=== PATIENT | female | born 1945 | race Caucasian/White ===

== ENCOUNTER 2020-06-05 09:48 | Outpatient (REF) | payer MEDICARE, SELFPAY | END 2020-06-05 09:49 | disposition home or self-care (01) | LOC: HO.LAB 09:48 | PROVIDERS: PCP Internal Medicine; Visit Provider Internal Medicine | DX: Z20.822 Contact with and (suspected) exposure to COVID-19 (principal) | CPT/HCPCS: 36415; C9803; U0003 ==

== ENCOUNTER 2020-06-26 08:11 | Outpatient (REF) | payer MEDICARE, SELFPAY | END 2020-06-26 08:12 | disposition home or self-care (01) | LOC: HO.LAB 08:11 | PROVIDERS: PCP Internal Medicine; Visit Provider Internal Medicine | DX: Z20.822 Contact with and (suspected) exposure to COVID-19 (principal) | CPT/HCPCS: 36415; C9803; U0003; U0005 ==

== ENCOUNTER 2021-01-09 09:51 | Outpatient (REF) | payer MEDICARE, SELFPAY ==
--- NOTE | ~2021-01-09 | US_ITS ---
EXAMINATION: US RETROPERITONEAL LIMITED (RENAL ONLY) CLINICAL INFORMATION: Chronic kidney disease, hypertension. COMPARISON: None. TECHNIQUE: Real-time imaging of the kidneys. FINDINGS: RIGHT KIDNEY: 9.9 x 4.1 x 4.9 cm (SAG x AP x TRV). The kidney is normal in size, contour, and echogenicity. Renal cortical thickness is normal. There is a 3 x 2.9 x 2.6 cm simple cyst in the lower pole. There is a 1.3 x 0.8 x 1.3 cm hypoechoic lesion with internal echoes seen in the midpole. This may represent a complex cyst. It is difficult to exclude a solid lesion. No renal calculi or hydronephrosis. LEFT KIDNEY: 7.8 x 4.2 x 3.9 cm (SAG x AP x TRV). The left kidney is smaller than the right. The kidney is normal in contour, and echogenicity. Renal cortical thickness is normal. No calculi or focal parenchymal lesions. No hydronephrosis. US/US renal BI IMPRESSION: 3 cm simple right renal cyst. 1.3 x 0.8 x 1.3 cm question complex cyst in the midpole of the right kidney. It is difficult to exclude a solid lesion. Imaging follow-up recommended. The left kidney is smaller than the right.
== END 2021-01-09 09:52 | disposition home or self-care (01) ==
LOC: HO.US 09:51
PROVIDERS: Visit Provider Internal Medicine
DX: I12.9 Hypertensive chronic kidney disease with stage 1 through stage 4 chronic kidney disease, or unspecified chronic kidney disease (principal); N18.9 Chronic kidney disease, unspecified
CPT/HCPCS: 76775

== ENCOUNTER 2021-02-26 16:55 | Outpatient (REF) | payer MEDICARE, SELFPAY ==
--- NOTE | ~2021-02-26 | MR_ITS ---
EXAMINATION: MRI OF THE BRAIN WITHOUT CONTRAST CLINICAL INFORMATION: New daily persistent headaches. Essential hypertension. COMPARISON: There are no prior studies available for comparison. TECHNIQUE: MRI of the brain was obtained using routine sequences without contrast. FINDINGS: No diffusion abnormalities are identified to suggest an acute or subacute infarct. No mass effect or midline shift is seen. There is moderate commensurate prominence of the ventricles and sulci. There are moderately extensive areas of hyperintense T2 and FLAIR signal in the periventricular and subcortical white matter, as well as in the maricruz, most consistent with chronic microvascular ischemic changes. There is a chronic lacunar infarct in the left basal ganglia. No extra-axial fluid collections are seen. The brainstem and cerebellum are normal. No pathologic magnetic susceptibility artifact is identified on the gradient refocused acquisition. The craniovertebral junction, marrow signal, and midline structures are normal. There is a mild anterolisthesis of C4 on C5, likely degenerative. The major intracranial flow-voids at the level of the [place] of [place] are preserved. The dural venous sinus flow-voids are maintained. There is trace fluid at the right mastoid tip. The paranasal sinuses are well-aerated. MR/MR head/brain wo con IMPRESSION: 1. There are no acute bleeds or territorial infarcts. No masses are demonstrated. 2. There are chronic microvascular ischemic changes and a lacunar infarct. There is diffuse volume loss.
== END 2021-02-26 16:56 | disposition home or self-care (01) ==
LOC: HO.MRI 16:55
PROVIDERS: Visit Provider Internal Medicine
DX: G44.52 New daily persistent headache (NDPH) (principal); I10 Essential (primary) hypertension; R41.3 Other amnesia
CPT/HCPCS: 70551

== ENCOUNTER 2021-03-24 10:42 | Outpatient (REF) | payer MEDICARE, SELFPAY ==
[2021-03-24 12:35] LABS: Vitamin B12 685 pg/mL (200-900)
== END 2021-03-24 10:43 | disposition home or self-care (01) ==
LOC: HO.LAB 10:42
PROVIDERS: PCP Internal Medicine; Visit Provider Psychiatry & Neurology Neurology
DX: G30.9 Alzheimer's disease, unspecified (principal)
CPT/HCPCS: 36415; 82607

== ENCOUNTER 2021-04-22 15:05 | Outpatient (REF) | payer MEDICARE, SELFPAY ==
--- NOTE | ~2021-04-22 | US_ITS ---
EXAMINATION: US RETROPERITONEAL LIMITED (RENAL ONLY) CLINICAL INFORMATION: Hypertension. Chronic kidney disease. COMPARISON: Renal ultrasound 01/09/2021. TECHNIQUE: Real-time imaging of the kidneys. FINDINGS: RIGHT KIDNEY: 8.7 x 3.0 x 5.4 cm (SAG x AP x TRV). The kidney is normal in size, contour, and echogenicity. Renal cortical thickness is normal. No renal calculi or hydronephrosis. 3.3 cm lower pole cyst demonstrates a feeding septation and mild cortical irregularity. An 8mm upper pole cyst which possibly demonstrates some peripheral calcification is noted. LEFT KIDNEY: 8.7 x 4.7 x 4.3 cm (SAG x AP x TRV). The kidney is normal in size, contour, and echogenicity. Renal cortical thickness is normal. No renal calculi or hydronephrosis of the left kidney. Suspected prominent column of Phillip. US/US renal BI IMPRESSION: -no renal calculi hydronephrosis of either kidney. -Mildly complex right renal cysts.
== END 2021-04-22 15:06 | disposition home or self-care (01) ==
LOC: HO.US 15:05
PROVIDERS: PCP Internal Medicine; Visit Provider Internal Medicine
DX: I12.9 Hypertensive chronic kidney disease with stage 1 through stage 4 chronic kidney disease, or unspecified chronic kidney disease (principal); N18.9 Chronic kidney disease, unspecified
CPT/HCPCS: 76775

== ENCOUNTER 2021-07-05 11:53 | Inpatient (IN) | payer MEDICARE, SELFPAY ==
[2021-07-05] VITALS (7 sets, daily range): BP systolic 122–153; BP diastolic 61–78; PULSE 4–97; RESP 14–20; TEMP 37.1–37.2; O2SAT 97–99; BMI 19.5
--- NOTE | ~2021-07-05 | CT_ITS ---
EXAMINATION: CT ABDOMEN AND PELVIS WITH CONTRAST CLINICAL INFORMATION: Diffuse abdominal tenderness COMPARISON: None TECHNIQUE: Multidetector volumetric images were obtained from the superior aspect of the liver through the pubic symphysis following administration 85 mL of Omnipaque 350 intravenous contrast. Sagittal and coronal reformatted images were obtained on the technologist's workstation. Oral contrast: No This CT examination was performed using dose optimization techniques as appropriate, variously including the following: *Automated exposure control *Adjustment of mA and/or kV according to patient size (this includes techniques or standardized protocols for targeted exams where dose is matched to indication/reason for exam; i.e. extremities or head) *Use of iterative reconstruction technique DLP: 338 mGy-cm FINDINGS: LUNG BASES: Peribronchiolar nodular airspace disease is noted within the right lower lobe as well as the right middle lobe, shows tree-in-bud appearance, most consistent with transbronchial infection/pneumonia. LIVER, GALLBLADDER, AND BILIARY TREE: 5 cm central mixed density relatively circumscribed mass is identified in the periportal region inseparable from the liver, producing mass effect in the form of displacement of the inferior vena cava to the left as well as displacement of the gallbladder inferiorly (27:5, and 185:4). Mild central biliary ductal dilatation is present likely secondary to extrinsic compression by the mass or the common bile duct which is also displaced anteriorly and to the left. The gallbladder other than displacement appears unremarkable. PANCREAS: Unremarkable. SPLEEN: Unremarkable. ADRENAL GLANDS: Unremarkable. KIDNEYS AND URETERS: The kidneys are normal in size, shape, and attenuation. No calculi seen. No perinephric stranding. Fullness of both renal pelvicalyceal system is present. Exophytic cortical renal cyst is noted at mid lateral cortex of the right kidney. BLADDER: Mild diffuse wall thickening is present, may represent superimposed infection. GASTROINTESTINAL TRACT: Colonic diverticulosis related changes are noted within the large bowel. The small bowel loops are decompressed. The stomach is decompressed. ABDOMINAL WALL: No significant hernia is appreciated. LYMPH NODES: Normal. VASCULAR: Mild atherosclerotic disease is noted without aneurysm formation. PELVIC VISCERA: Vbryg-pg-hqreflsg volume free fluid is noted within the dependent part of the pelvis. OSSEOUS STRUCTURES: No suspicious focal osseous lesion. CT/CT abdomen pelvis w con IMPRESSION: 1. Solitary 5 cm Central mixed density relatively circumscribed mass is identified in the periportal region inseparable from the liver producing mass effect in the form of displacement of the inferior vena cava, gallbladder and common bile duct, resulting in minimal central biliary ductal dilatation. Follow-up multiphasic nonemergent pre and postcontrast MRI of the liver is recommended for further full detail evaluation. There are no prior studies available for comparison. 2. Mild fullness of both renal pelvicalyceal system and mild diffuse thickening of the bladder wall. 3. Nchgm-rl-icaudpfv volume free fluid within the dependent part of the pelvis. 4. Abnormal lung bases with peribronchiolar nodular airspace disease at right lower lobe and right middle lobe, most consistent with infection/pneumonia. This critical result was discussed with PEYMAN Edward at 2:02 PM on 07/05/2021 and it was ascertained that the content and urgency of the report was understood at the time of direct communication. Fleischner guidelines were followed.
--- NOTE | ~2021-07-05 | XR_ITS ---
EXAMINATION: XR CHEST CLINICAL INFORMATION: Chest pain and cough COMPARISON: CT chest dated 09/06/2018 TECHNIQUE: Frontal view of the chest was obtained. FINDINGS: There are linear and streaky opacities within right midlung and right lower lung, possibly left lower lung as well. Suspect bronchial wall thickening and endobronchial secretions as seen on the prior CT chest. No pleural effusion or pneumothorax. Normal heart size and pulmonary vascularity. XR/XR chest 1V IMPRESSION: Few bilateral streaky and patchy airspace opacities and associated bronchial wall thickening.
--- NOTE | ~2021-07-05 | MR_ITS ---
EXAMINATION: MR ABDOMEN WITHOUT AND WITH CONTRAST CLINICAL INFORMATION: Liver lesion COMPARISON: Chest x-ray and CT of the abdomen and pelvis 07/05/2021 TECHNIQUE: MR abdomen was performed without and with use of 5 mL intravenous Gadavist gadolinium contrast. Postcontrast images are performed in multiphase dynamic sequences. Imaging was performed in 3 planes. Exam is limited due to movement. FINDINGS: LUNG BASES: There is a 3 cm cystic or cavitary lesion in the right upper lung. There appear to be adjacent nodules more centrally in the right upper lobe extending toward the hilum. There also appear to be small nodules in the left upper lung. This is best appreciated on the coronal T2 sequences that include the chest. LIVER, GALLBLADDER, AND BILIARY TREE: The liver is normal in size, shape and signal. There is no evidence of cirrhosis. There is a 5 cm lesion inferior to the marlin hepatis probably arising in the posterior segment of the right lobe of the liver. This is heterogeneous in signal on T1 and T2-weighted sequences. This is predominantly low signal on T1-weighted sequences and intermediate to high signal on T2-weighted sequences. This demonstrates heterogeneous thick-walled peripheral enhancement. The gallbladder is not well visualized. There is no biliary duct dilatation. There is a small cyst in the medial segment of the left lobe of the liver. The hepatic veins and portal veins are patent. PANCREAS: Unremarkable. SPLEEN: Normal. ADRENAL GLANDS: Normal. KIDNEYS AND URETERS: There is a 4 cm cyst in the inferior right kidney. The kidneys are otherwise unremarkable. GASTROINTESTINAL TRACT: There is stool throughout the colon. There is a small amount of ascites. ABDOMINAL WALL: No significant hernia is appreciated. LYMPH NODES: No lymphadenopathy. VASCULAR: Unremarkable. OSSEOUS STRUCTURES: Marrow signal normal. MR/MR abdomen wo/w con IMPRESSION: Limited exam due to motion. 3 cm cystic or cavitary area in the right upper lung, probably the posterior segment of the right upper lobe and bilateral pulmonary nodules. Follow-up chest CT recommended. 5 cm heterogeneous necrotic or cavitary lesion probably probably in the liver or gallbladder. Metastatic disease, gallbladder or cholangiocarcinoma, and in the right clinical setting abscess should be considered. Enhancement characteristics are atypical for hepatocellular carcinoma and there is no evidence of cirrhosis. Small amount of ascites.
--- NOTE | ~2021-07-05 | US_ITS ---
EXAMINATION: US HEPATIC BIOPSY CLINICAL INFORMATION: 5 cm necrotic mass in the liver. COMPARISON: None TECHNIQUE: Following explaining CT-guided liver biopsy procedure, benefits and risk, a written consent was obtained from the patient. Patient was placed supine on ultrasound stretcher and preliminary ultrasound imaging was obtained. An optimal site was selected along the epigastric region right paramidline region and marked. The marked site was cleaned and draped in the usual sterile manner. 1% lidocaine was injected at the puncture site. Through a small skin incision, a short 18-gauge guide needle was advanced into the central hepatic mass under sterile ultrasound guidance. Coaxially 6 core biopsies were obtained with an 18-gauge needle. Postprocedure, the guide needle was withdrawn and complete hemostasis achieved at puncture site. There was no bleeding through the needle or at the puncture site. Sterile dressing applied postprocedure. Conscious sedation was performed during the exam and patient monitored by the IR physician and the IR nurse for 30 minutes. FINDINGS: On preliminary ultrasound imaging, there is a large right hepatic lobe mass situated medially. Approximately 6 core biopsies were obtained through this large necrotic hypodense mass US/US biopsy liver IMPRESSION: Successful ultrasound-guided right hepatic lobe mass biopsy performed without immediate complications.
--- NOTE | ~2021-07-05 | CT_ITS ---
EXAMINATION: CT CHEST WITH CONTRAST CLINICAL INFORMATION: Evaluate for possible primary vs. secondary cancer? COMPARISON: Chest x-ray 07/05/2021. Chest CT 09/06/2018. TECHNIQUE: Multidetector volumetric CT imaging of the chest was obtained after the administration of 65 mL of Omnipaque 350 intravenous contrast without immediate adverse reactions. Axial MIP volume rendering provided. Sagittal and coronal reformatted images were obtained. This CT examination was performed using dose optimization techniques as appropriate, variously including the following: *Automated exposure control *Adjustment of mA and/or kV according to patient size (this includes techniques or standardized protocols for targeted exams where dose is matched to indication/reason for exam; i.e. extremities or head) *Use of iterative reconstruction technique DLP: 145 mGy-cm FINDINGS: DRAMATIC COACH: Cavitary lesion in the right perihilar region as noted on the order dispatcher. LUNGS: Multifocal pulmonary abnormalities are present. There are areas of clustered likely tree-in-bud nodules in the posterior aspect of the right upper lobe. There are clustered tree-in-bud nodules in the lateral posterior inferior aspect of the right upper lobe. The greatest degree of abnormality is seen within the right lower lobe where there is a 4.0 x 3.0 cm transaxial by 2.9 cm craniocaudal centrally cavitary mass. The mass is a small dependent fluid level and an irregular wall up to 4 to 5 mm in thickness. There were some bronchiectatic airways with bronchial wall thickening clustered nodules in this location on the prior study in 2019. Numerous additional areas of clustered nodules and patchy consolidation are seen elsewhere in the right lower lobe particularly medially and inferior to the cavitary mass. There are a few areas of clustered tree-in-bud nodules within the lingula and left lower lobe although there is much less involvement in the left lung and in the right lung. MEDIASTINUM: Heterogeneous appearance of the thyroid. No discrete nodule greater than 1 cm seen. Based on the recommendations of the ACR Incidental Thyroid Findings Committee (JACR 2015 Jun; 12(2):143-50), no imaging followup is recommended for incidental thyroid nodules with largest axial dimension less than 1.5 cm in patients greater than 35 years of age in the absence of high risk imaging features, symptomatic thyroid disease, or increased risk for thyroid cancer. No hilar or mediastinal lymphadenopathy. Normal heart size. PLEURA: There is no pleural effusion. No pleural mass or thickening. AXILLA: No axillary or internal mammary lymphadenopathy. UPPER ABDOMEN: No adrenal mass. OSSEOUS STRUCTURES: Degenerative changes. No acute or suspicious osseous abnormality. CT/CT chest w con IMPRESSION: 4.0 cm maximum diameter cavitary mass in the right lower lobe. There is a small dependent fluid level with a thick irregular rim uptake a 4 mm. The appearance is nonspecific. Malignancy is a consideration but it seems more likely that this is an infectious or inflammatory process given the additional findings of multifocal infection/inflammation elsewhere in the lungs and the presence of chronic infectious or inflammatory changes centered in this location on the prior chest CT 09/06/2018
--- NOTE | 2021-07-05 12:10 | ECG_ITS ---
Test Reason : CP Blood Pressure : / mmHG Vent. Rate : 081 BPM Atrial Rate : 081 BPM P-R Int : 128 ms QRS Dur : 130 ms QT Int : 366 ms P-R-T Axes : 077 -11 026 degrees QTc Int : 425 ms Normal sinus rhythm Incomplete right bundle branch block Minimal voltage criteria for LVH, may be normal variant ( [place] product ) Abnormal ECG No previous ECGs available Referred By: Nehal Broussard Electronically Signed By:ISSAC SOUZA
--- NOTE | 2021-07-05 12:14 | ED_ITS ---
HPI - General Adult General Chief complaint: General Medical Stated complaint: CHEST PAIN Time Seen by Provider: 07/05/21 12:01 Source: patient and EMS Mode of arrival: EMS History of Present Illness HPI narrative: 75-year-old female with a past medical history HTN, anemia, BIBA from home complaining of intermittent CP, mild SOB, dry cough, subjective fevers, and right flank pain since yesterday. Also reports generalized fatigue/weakness and lightheadedness all week. Also reports abdominal pain. Denies vomiting, nausea, diarrhea, headache, edema, dysuria/hematuria. Onset (ago): day(s) Related Data Allergies Allergy/AdvReac Type Severity Reaction Status Date / Time No Known Allergies Allergy Unverified 01/25/20 17:49 [No Known Allergies*] Review of Systems Review of Systems: Constitutional: +Subj Fever, No Chills, No Night Sweats, + Fatigue, + Malaise ENT/Mouth: No Hearing loss, No Ear Pain, No Nasal Congestion, No sore throat, No Rhinorrhea, No Swallowing Difficulty Eyes: No Eye Pain, No Swelling, No Redness, No Foreign Body, No Discharge, No Vision Changes Cardiovascular: + Chest Pain, + SOB, No Dyspnea on Exertion, No Edema, No Palpit ations Respiratory: + Cough, No Sputum, No Dyspnea Gastrointestinal: No Nausea, No Vomiting, No Diarrhea, No Constipation, + Abdominal pain Genitourinary: No Dysuria, No Urinary Frequency, No Hematuria, No Urinary Incontinence, No Urgency, + Flank Pain Musculoskeletal: No joint pain, No Myalgias, No Joint Swelling Skin: No Skin Lesions, No rash Neuro: + Weakness, No Numbness, No Paresthesias, No Loss of Consciousness, + lightheadedness, No Headache Yes all other systems are reviewed and are negative Neurologic: Denies Abnormal speech present [facility] Past Medical History Attestation statement: The following information was validated with the patient. Medical History Anemia HTN (hypertension) Social History Social History Patient Tobacco Use Status: Never used Tobacco Use of substances other than those prescribed or required for medical reasons: No Advance Directives: No Advance Directives Information Provided: No Physical Exam ED Vital Signs: Vital Signs - 24 hr 07/05/21 12:05 07/05/21 12:37 07/05/21 14:00 Temperature 98.8 F Pulse Rate 87 97 87 Respiratory Rate 16 16 Blood Pressure 142/64 H 146/78 H 122/61 Pulse Oximetry 97 97 BMI result Body Mass Index 19.5 Const General: cooperative, healthy appearing, no acute distress, well developed, alert and awake Orientation/consciousness: patient oriented x3 Limitations: no limitations HENMT Head: Yes normal to inspection and Yes atraumatic Ears: hearing grossly normal bilaterally General nose exam: Normal external nose present Face and sinus: Yes normal facial exam Eyes General: appearance normal, both eyes and all related structures EOM: EOMs intact bilaterally Neck Neck: Yes normal visual inspection and Yes no meningeal signs Chest Chest palpation & inspection: normal inspection of the chest, no crepitus and no tenderness Resp Effort & Inspection: normal respiratory effort and no respiratory distress Auscultation: clear to auscultation bilaterally, no rales, no rhonchi and no wheezes Cardio Rate: regular rate Heart sounds: S1 normal heart sound present and S2 normal heart sound present GI Inspection: Yes normal to inspection Palpation (GI): Soft to palpation, Tenderness to palpation present (GI) (diffusely), no guarding and not rigid General: Yes no CVA tenderness Back/Spine/Pelvis Back: no CVA tenderness Skin Rashes: no rashes Wounds: no wounds Neuro General: patient oriented x3, tone normal, moves all extremities, no meningeal signs, no focal motor deficits and CN's II-XI intact bilaterally Cranial nerves: Yes CN's II-XII intact bilaterally Cognition (Neuro): normal cognition Speech: No Abnormal speech present Gait exam (Neuro): Normal gait present Motor exam (neuro): 5/5 motor strength present throughout (RUE weakness (chronically per patient)) Extrem General: Yes normal to inspection and Yes no pedal edema Course Course Course Narrative: -1315--no leukocytosis. H&H lower than baseline at 8.7/27.3 >> will obtain guaiac stool and 3 hour repeat CBC > patient does report black stool times unknown period of time. Brown stool noted on rectal -labs otherwise unremarkable. Troponin negative. COVID-19 negative XR chest 1V IMPRESSION: Few bilateral streaky and patchy airspace opacities and associated bronchial wall thickening. ?>> lactic/blood cultures and empiric IV Rocephin and Azithromycin ordered -1416-CT abdomen pelvis w con IMPRESSION: 1. Solitary 5 cm Central mixed density relatively circumscribed mass is identified in the periportal region inseparable from the liver producing mass effect in the form of displacement of the inferior vena cava, gallbladder and common bile duct, resulting in minimal central biliary ductal dilatation. Follow-up multiphasic nonemergent pre and postcontrast MRI of the liver is recommended for further full detail evaluation. ? There are no prior studies available for comparison. 2. Mild fullness of both renal pelvicalyceal system and mild diffuse thickening of the bladder wall. 3. [id number] volume free fluid within the dependent part of the pelvis. 4. Abnormal lung bases with peribronchiolar nodular airspace disease at right lower lobe and right middle lobe, most consistent with infection/pneumonia. ? > results discussed with patient. Occult stool negative. UA with 15 ketones/not infected. Plan to admit for further management. Medical Decision Making MDM Narrative Medical decision making narrative: 75-year-old female with a past medical history HTN, anemia, BIBA from home complaining of intermittent CP, mild SOB, dry cough, subjective fevers, and right flank pain since yesterday. Also reports generalized fatigue/weakness and lightheadedness all week & abdominal pain. On exam vital signs stable, NAD/nontoxic, lungs CTA, abdomen soft diffusely tender, no focal neuro deficits. Concern for atypical ACS vs intra-abdominal pathology including sinusi tis/diverticulitis or pancreatitis/cholecystitis/lithiasis vs UTI/renal stone or pyelo. Rule out viral syndrome/COVID-19. Unlikely PE/CHF Plan: EKG, labs, UA, CXR, CT abdomen/pelvis, orthostatic vital signs, IVF, re- evaluate Medical Records Medical records reviewed: Yes I reviewed the patient's medical records. Lab Data Lab results reviewed: Yes I reviewed the patient's lab results. Result diagrams: 07/05/21 13:56 07/05/21 12:32 Labs: Lab Results 07/05/21 07/05/21 07/05/21 Range/Units 12:32 12:32 12:32 WBC 5.4 (4.8-10.8) X10*3/uL RBC 3.08 L (4.20-5.50) X10*6/uL Hgb 8.7 L (12.0-16.0) g/dl Hct 27.3 L (37.0-47.0) % MCV 88.6 (80.0-98.0) fL MCH 28.2 (27.0-33.0) pg MCHC 31.9 (31.0-35.0) g/dl RDW 12.6 (11.0-16.0) % Plt Count 291 (160-400) X10*3/uL MPV 9.4 (9.4-12.3) fL Immature Gran % (Auto) 0.6 H (0.0-0.4) % Neut % (Auto) 85.8 H (45-73) % Lymph % (Auto) 8.1 L (20-40) % [place] % (Auto) 4.6 (2-11) % Eos % (Auto) 0.7 (0-4) % Baso % (Auto) 0.2 (0-2) % Lymph # (Auto) 0.4 L (1.2-4.9) X10*3/uL [place] # (Auto) 0.3 (0.1-1.2) X10*3/uL Eos # (Auto) 0.0 (0.0-0.4) X10*3/uL Baso # (Auto) 0.0 (0.0-0.2) X10*3/uL Abs Immat Gran (auto) 0.03 (0.00-0.03) X10*3/uL Absolute Neuts (auto) 4.7 (2.0-8.3) x10*3/uL Absolute Nucleated RBC 0.000 (0.0-0.012) X10*3/uL Nucleated RBC % (auto) 0.0 (0.0-0.2) /100WBC Sodium 137 (135-145) mmol/L Potassium 4.3 (3.3-5.1) mmol/L Chloride 99 (96-108) mmol/L Carbon Dioxide 26 (22-29) mmol/L Anion Gap 16 (12-20) BUN 20 H (9-16) mg/dL Creatinine 1.03 (0.5-1.4) mg/dL Estim Creat Clear Calc 37.1 Estimated GFR 53 Random Glucose 82 (60-115) mg/dL Lactic Acid (0.5-2.0) mmol/L Calcium 9.2 (8.4-10.2) mg/dL Magnesium 2.3 (1.6-2.6) mg/dL Total Bilirubin 0.8 (0.0-1.0) mg/dL Direct Bilirubin 0.3 (0.0-0.5) mg/dL AST 12 (5-31) U/L ALT < 6 (0-31) U/L Alkaline Phosphatase 91 (39-117) U/L Troponin I High Sens < 3.5 (<3.5-17.0) ng/L B-Natriuretic Peptide 137 H (<100) pg/mL Total Protein 7.5 (6.5-8.0) g/dL Albumin 3.5 (3.5-5.0) g/dL Lipase 4 L (8-78) U/L Urine Color Urine Appearance Urine pH (5.0-8.0) Ur Specific [place] (1.005-1.025) Urine Protein (NEG-TRACE) MG/DL Urine Glucose (UA) (NEG) MG/DL Urine Ketones (NEG) MG/DL Urine Blood (NEG) Urine Nitrite (NEG) Ur Leukocyte Esterase (NEG) Stool Occult Blood (NEGATIVE) COVID-19 (CAM) (Negative) COVID-19 Clin Com 07/05/21 07/05/21 07/05/21 Range/Units 12:32 12:32 13:56 WBC 5.1 (4.8-10.8) X10*3/uL RBC 3.06 L (4.20-5.50) X10*6/uL Hgb 8.6 L (12.0-16.0) g/dl Hct 27.3 L (37.0-47.0) % MCV 89.2 (80.0-98.0) fL MCH 28.1 (27.0-33.0) pg MCHC 31.5 (31.0-35.0) g/dl RDW 12.6 (11.0-16.0) % Plt Count 286 (160-400) X10*3/uL MPV 9.5 (9.4-12.3) fL Immature Gran % (Auto) 0.4 (0.0-0.4) % Neut % (Auto) 86.1 H (45-73) % Lymph % (Auto) 8.7 L (20-40) % [place] % (Auto) 4.0 (2-11) % Eos % (Auto) 0.4 (0-4) % Baso % (Auto) 0.4 (0-2) % Lymph # (Auto) 0.4 L (1.2-4.9) X10*3/uL [place] # (Auto) 0.2 (0.1-1.2) X10*3/uL Eos # (Auto) 0.0 (0.0-0.4) X10*3/uL Baso # (Auto) 0.0 (0.0-0.2) X10*3/uL Abs Immat Gran (auto) 0.02 (0.00-0.03) X10*3/uL Absolute Neuts (auto) 4.4 (2.0-8.3) x10*3/uL Absolute Nucleated RBC 0.000 (0.0-0.012) X10*3/uL Nucleated RBC % (auto) 0.0 (0.0-0.2) /100WBC Sodium (135-145) mmol/L Potassium (3.3-5.1) mmol/L Chloride (96-108) mmol/L Carbon Dioxide (22-29) mmol/L Anion Gap (12-20) BUN (9-16) mg/dL Creatinine (0.5-1.4) mg/dL Estim Creat Clear Calc Estimated GFR Random Glucose (60-115) mg/dL Lactic Acid (0.5-2.0) mmol/L Calcium (8.4-10.2) mg/dL Magnesium (1.6-2.6) mg/dL Total Bilirubin (0.0-1.0) mg/dL Direct Bilirubin (0.0-0.5) mg/dL AST (5-31) U/L ALT (0-31) U/L Alkaline Phosphatase (39-117) U/L Troponin I High Sens (<3.5-17.0) ng/L B-Natriuretic Peptide Cancelled (<100) pg/mL Total Protein (6.5-8.0) g/dL Albumin (3.5-5.0) g/dL Lipase (8-78) U/L Urine Color Urine Appearance Urine pH (5.0-8.0) Ur Specific [place] (1.005-1.025) Urine Protein (NEG-TRACE) MG/DL Urine Glucose (UA) (NEG) MG/DL Urine Ketones (NEG) MG/DL Urine Blood (NEG) Urine Nitrite (NEG) Ur Leukocyte Esterase (NEG) Stool Occult Blood (NEGATIVE) COVID-19 (CAM) Negative (Negative) COVID-19 Clin Com See Note 07/05/21 07/05/21 07/05/21 Range/Units 13:56 14:22 14:35 WBC (4.8-10.8) X10*3/uL RBC (4.20-5.50) X10*6/uL Hgb (12.0-16.0) g/dl Hct (37.0-47.0) % MCV (80.0-98.0) fL MCH (27.0-33.0) pg MCHC (31.0-35.0) g/dl RDW (11.0-16.0) % Plt Count (160-400) X10*3/uL MPV (9.4-12.3) fL Immature Gran % (Auto) (0.0-0.4) % Neut % (Auto) (45-73) % Lymph % (Auto) (20-40) % [place] % (Auto) (2-11) % Eos % (Auto) (0-4) % Baso % (Auto) (0-2) % Lymph # (Auto) (1.2-4.9) X10*3/uL [place] # (Auto) (0.1-1.2) X10*3/uL Eos # (Auto) (0.0-0.4) X10*3/uL Baso # (Auto) (0.0-0.2) X10*3/uL Abs Immat Gran (auto) (0.00-0.03) X10*3/uL Absolute Neuts (auto) (2.0-8.3) x10*3/uL Absolute Nucleated RBC (0.0-0.012) X10*3/uL Nucleated RBC % (auto) (0.0-0.2) /100WBC Sodium (135-145) mmol/L Potassium (3.3-5.1) mmol/L Chloride (96-108) mmol/L Carbon Dioxide (22-29) mmol/L Anion Gap (12-20) BUN (9-16) mg/dL Creatinine (0.5-1.4) mg/dL Estim Creat Clear Calc Estimated GFR Random Glucose (60-115) mg/dL Lactic Acid 1.1 (0.5-2.0) mmol/L Calcium (8.4-10.2) mg/dL Magnesium (1.6-2.6) mg/dL Total Bilirubin (0.0-1.0) mg/dL Direct Bilirubin (0.0-0.5) mg/dL AST (5-31) U/L ALT (0-31) U/L Alkaline Phosphatase (39-117) U/L Troponin I High Sens (<3.5-17.0) ng/L B-Natriuretic Peptide (<100) pg/mL Total Protein (6.5-8.0) g/dL Albumin (3.5-5.0) g/dL Lipase (8-78) U/L Urine Color STRAW Urine Appearance CLEAR Urine pH 5.5 (5.0-8.0) Ur Specific [place] <= 1.005 (1.005-1.025) Urine Protein NEG (NEG-TRACE) MG/DL Urine Glucose (UA) NEG (NEG) MG/DL Urine Ketones 15 (NEG) MG/DL Urine Blood NEG (NEG) Urine Nitrite NEG (NEG) Ur Leukocyte Esterase NEG (NEG) Stool Occult Blood NEGATIVE (NEGATIVE) COVID-19 (CAM) (Negative) COVID-19 Clin Com ECG Data Attestation: I personally reviewed and interpreted this ECG as follows: Interpretation: EKG normal sinus rhythm at a rate of 81. Pr interval 128. QTC 425. Inverted T-wave in V1. No STEMI. Discharge Plan Discharge Clinical Impression: Pneumonia, Liver mass, Anemia Patient Disposition: Admitted As Inpatient
--- NOTE | 2021-07-05 12:19 | PC.NURSE ---
Pt alert/oriented, reports not feeling well for past week with dizziness and fatigue but cp and right low back pain started yesterday. afebrile but reports feeling hot at home. ?right sided facial droop, other neuros intact. Tis RN and Nehal to bedside for initial assessment. Difficult to determine if smile d/t dentition. NSR on monitor
[2021-07-05] MEDS: 0.9 % Sodium Chloride 1,000 ML 999 ML IV (12:35)
[2021-07-05 12:37] LABS: MANUAL DIFF FLAG NO
[2021-07-05 12:40] LABS: Basophils Percent Auto 0.2 % (0-2); Eosinophils Percent Auto 0.7 % (0-4); Hematocrit 27.3 % (37.0-47.0); Hemoglobin 8.7 g/dl (12.0-16.0); Imm Gran Abs Auto 0.03 X10*3/uL (0.00-0.03); Imm Gran Pct Auto 0.6 % (0.0-0.4); Lymphocytes Absolute Auto 0.4 X10*3/uL (1.2-4.9); Lymphocytes Percent Auto 8.1 % (20-40); Mean Corpuscular HGB Conc 31.9 g/dl (31.0-35.0); Mean Corpuscular Hemoglobin 28.2 pg (27.0-33.0); Mean Corpuscular Volume 88.6 fL (80.0-98.0); Mean Platelet Volume 9.4 fL (9.4-12.3); Monocytes Absolute Auto 0.3 X10*3/uL (0.1-1.2); Monocytes Percent Auto 4.6 % (2-11); Neutrophils Absolute Auto 4.7 x10*3/uL (2.0-8.3); Neutrophils Percent Auto 85.8 % (45-73); Platelet Count 291 X10*3/uL (160-400); Red Blood Count 3.08 X10*6/uL (4.20-5.50); Red Cell Distribution Width 12.6 % (11.0-16.0); White Blood Count 5.4 X10*3/uL (4.8-10.8)
[2021-07-05 12:54] LABS: COVID-19 Test Negative (Negative); IDNOW Serial# 55D5AD1C
[2021-07-05 13:00] LABS: B Type Natriuretic Peptide 137 pg/mL (<100); Troponin-I High Sensitivity < 3.5 ng/L (<3.5-17.0)
[2021-07-05 13:05] LABS: Alanine Aminotransferase < 6 U/L (0-31); Albumin Level 3.5 g/dL (3.5-5.0); Alkaline Phosphatase 91 U/L (39-117); Anion Gap 16 (12-20); Aspartate Amino Transferase 12 U/L (5-31); Bilirubin Direct 0.3 mg/dL (0.0-0.5); Bilirubin Total 0.8 mg/dL (0.0-1.0); Blood Urea Nitrogen 20 mg/dL (9-16); Calcium 9.2 mg/dL (8.4-10.2); Carbon Dioxide 26 mmol/L (22-29); Chloride 99 mmol/L (96-108); Creatinine Clr Calc Pharmacy 37.1; Estimated Glomerular Filt Rate 53; Glucose Random 82 mg/dL (60-115); Lipase 4 U/L (8-78); Magnesium 2.3 mg/dL (1.6-2.6); Potassium 4.3 mmol/L (3.3-5.1); Sodium 137 mmol/L (135-145); Total Protein 7.5 g/dL (6.5-8.0)
[2021-07-05] MEDS: iohexoL 350 MG/ML 100 ML INFUS..BTL IV (13:28)
[2021-07-05 14:01] LABS: MANUAL DIFF FLAG NO
[2021-07-05 14:02] LABS: Basophils Percent Auto 0.4 % (0-2); Eosinophils Percent Auto 0.4 % (0-4); Hematocrit 27.3 % (37.0-47.0); Hemoglobin 8.6 g/dl (12.0-16.0); Imm Gran Abs Auto 0.02 X10*3/uL (0.00-0.03); Imm Gran Pct Auto 0.4 % (0.0-0.4); Lymphocytes Absolute Auto 0.4 X10*3/uL (1.2-4.9); Lymphocytes Percent Auto 8.7 % (20-40); Mean Corpuscular HGB Conc 31.5 g/dl (31.0-35.0); Mean Corpuscular Hemoglobin 28.1 pg (27.0-33.0); Mean Corpuscular Volume 89.2 fL (80.0-98.0); Mean Platelet Volume 9.5 fL (9.4-12.3); Monocytes Absolute Auto 0.2 X10*3/uL (0.1-1.2); Neutrophils Absolute Auto 4.4 x10*3/uL (2.0-8.3); Neutrophils Percent Auto 86.1 % (45-73); Platelet Count 286 X10*3/uL (160-400); Red Blood Count 3.06 X10*6/uL (4.20-5.50); Red Cell Distribution Width 12.6 % (11.0-16.0); White Blood Count 5.1 X10*3/uL (4.8-10.8)
[2021-07-05 14:14] LABS: Lactic Acid 1.1 mmol/L (0.5-2.0)
[2021-07-05] MEDS: cefTRIAXone sodium 1 GM in 0.9 % Sodium Chloride 50 ML IV (14:18)
[2021-07-05 14:33] LABS: OBS Int Ctl Valid YES; OBS1 NEGATIVE (NEGATIVE)
[2021-07-05 14:41] LABS: Appearance Urine CLEAR; Color Urine STRAW; Glucose Urine UA NEG (NEG); Leukocyte Esterase Urine NEG (NEG); Nitrite Urine NEG (NEG); PH 5.5 (5.0-8.0); Specific Gravity - Urine <= 1.005 (1.005-1.025); Urine Blood NEG (NEG); Urine Ketones 15 MG/DL (NEG); Urine Protein NEG (NEG-TRACE)
[2021-07-05] MEDS: Azithromycin 500 MG in 0.9 % Sodium Chloride 250 ML 125 MG IV (15:06)
--- NOTE | 2021-07-05 15:49 | PM.IMHP ---
History of Present Illness Date of Service: 07/05/21 Chief Complaint: Cough, weakness, abd pain A 75 years old lady with PMH of hypertension, HLD, hypothyroidism who presents to the hospital complaining of coughing, weakness, right flank pain for the last few days. The patient reported she started to cough and have subjective fevers over the last few days with associated feeling of weakness and lightheadedness. Yesterday she started to feel pain in her right upper quadrant that is mild to moderate, intermittent, not radiating and other place a not associated with any other symptoms. She reported decrease in oral intake and feeling nauseated so she could not eat much. Denies any chest pain, palpitation, change in bowel habit, urinary symptoms or any focal weakness. She reports losing weight over the last few months and decreased appetite generally. In the emergency she was found to have a drop in hemoglobin to 8.7 from baseline above 10. Occult stool negative. CT scan showed 5 cm liver mass causing mass effect to inferior vena cava and gallbladder. Liver and kidney function within normal. Chest x-ray showing possible bilateral infiltrate suggestive of pneumonia. The patient started on antibiotics and admitted for further evaluation and treatment. Review of Systems Review of Systems: Reporting feeling chills and having subjective fever with increased generalized weakness No chest pain, palpitation Having dry cough and episode of dyspnea on exertion Right upper quadrant pain with associated nausea No urinary symptoms No any rash or wounds PMFSH Medical History Anemia HTN (hypertension) Social History Patient Tobacco Use Status: Never used Tobacco Use of substances other than those prescribed or required for medical reasons: No Advance Directives: No Advance Directives Information Provided: No Meds Allergies Allergy/AdvReac Type Severity Reaction Status Date / Time No Known Allergies Allergy Unverified 01/25/20 17:49 [No Known Allergies*] Active Medications: Current Medications Pharmacy Consult (Consult Rx Perform Med Rec) 1 each MISCELLANE ONCE PRN PRN Reason: Consult order Home Medications Medication Instructions Recorded Confirmed Last Taken Type atorvastatin 20 mg tablet 1 tab PO DAILY 07/05/21 Unknown History cholecalciferol (vitamin D3) 25 1 tab PO DAILY 07/05/21 Unknown History mcg (1,000 unit) tablet cyanocobalamin (vitamin B-12) 500 1 tab DAILY 07/05/21 Unknown History mcg tablet diltiazem HCl 180 mg capsule,24 1 cap PO DAILY 07/05/21 Unknown History hr,extended release (Tiadylt ER) fluticasone propionate 50 1 spray INTRANASAL DAILY 07/05/21 Unknown History mcg/actuation nasal spray,suspension levothyroxine 88 mcg tablet 1 tab PO DAILY 07/05/21 Unknown History lisinopril 10 mg tablet 1 tab PO DAILY 07/05/21 Unknown History naproxen 500 mg tablet 1 tab PO BID 07/05/21 Unknown History Physical Exam Vital Signs and Narrative: Vital Signs: Last Vital Signs Temp 98.9 F 07/05/21 15:13 Pulse 83 07/05/21 15:13 Resp 14 07/05/21 15:13 BP 133/67 07/05/21 15:13 Pulse Ox 98 07/05/21 15:13 BMI result Body Mass Index 19.5 Const: Other: Constitutional : Alert, oriented, not in distress Neck : Normal inspection, Supple Cardiovascular : RRR, S1 S2, no lower extremity edema Respiratory : Fair bilateral air entry, basal bilateral fine crackles, no wheezes or rhonchi Gastrointestinal: soft, lax, Normal bowel sounds, Non tender Skin : Warm, Dry Neurological : Alert & oriented x3, No focal deficit Results Labs CBC and Chem 7: 07/05/21 13:56 07/05/21 12:32 Labs: Laboratory Results - last 24 hr 07/05/21 07/05/21 07/05/21 12:32 12:32 12:32 MCV 88.6 MCH 28.2 MCHC 31.9 RDW 12.6 Plt Count 291 MPV 9.4 Immature Gran % (Auto) 0.6 H Neut % (Auto) 85.8 H Lymph % (Auto) 8.1 L [place] % (Auto) 4.6 Eos % (Auto) 0.7 Baso % (Auto) 0.2 Lymph # (Auto) 0.4 L [place] # (Auto) 0.3 Eos # (Auto) 0.0 Baso # (Auto) 0.0 Abs Immat Gran (auto) 0.03 Absolute Neuts (auto) 4.7 Absolute Nucleated RBC 0.000 Nucleated RBC % (auto) 0.0 Anion Gap 16 Estim Creat Clear Calc 37.1 Estimated GFR 53 Random Glucose 82 Lactic Acid Calcium 9.2 Magnesium 2.3 Total Bilirubin 0.8 Direct Bilirubin 0.3 AST 12 ALT < 6 Alkaline Phosphatase 91 B-Natriuretic Peptide 137 H Total Protein 7.5 Albumin 3.5 Lipase 4 L Urine Color Urine Appearance Urine pH Ur Specific [place] Urine Protein Urine Glucose (UA) Urine Ketones Urine Blood Urine Nitrite Ur Leukocyte Esterase Stool Occult Blood COVID-19 (CAM) COVID-19 Clin Com 07/05/21 07/05/21 07/05/21 12:32 12:32 13:56 MCV 89.2 MCH 28.1 MCHC 31.5 RDW 12.6 Plt Count 286 MPV 9.5 Immature Gran % (Auto) 0.4 Neut % (Auto) 86.1 H Lymph % (Auto) 8.7 L [place] % (Auto) 4.0 Eos % (Auto) 0.4 Baso % (Auto) 0.4 Lymph # (Auto) 0.4 L [place] # (Auto) 0.2 Eos # (Auto) 0.0 Baso # (Auto) 0.0 Abs Immat Gran (auto) 0.02 Absolute Neuts (auto) 4.4 Absolute Nucleated RBC 0.000 Nucleated RBC % (auto) 0.0 Anion Gap Estim Creat Clear Calc Estimated GFR Random Glucose Lactic Acid Calcium Magnesium Total Bilirubin Direct Bilirubin AST ALT Alkaline Phosphatase B-Natriuretic Peptide Cancelled Total Protein Albumin Lipase Urine Color Urine Appearance Urine pH Ur Specific [place] Urine Protein Urine Glucose (UA) Urine Ketones Urine Blood Urine Nitrite Ur Leukocyte Esterase Stool Occult Blood COVID-19 (CAM) Negative COVID-19 Clin Com See Note 07/05/21 07/05/21 07/05/21 13:56 14:22 14:35 MCV MCH MCHC RDW Plt Count MPV Immature Gran % (Auto) Neut % (Auto) Lymph % (Auto) [place] % (Auto) Eos % (Auto) Baso % (Auto) Lymph # (Auto) [place] # (Auto) Eos # (Auto) Baso # (Auto) Abs Immat Gran (auto) Absolute Neuts (auto) Absolute Nucleated RBC Nucleated RBC % (auto) Anion Gap Estim Creat Clear Calc Estimated GFR Random Glucose Lactic Acid 1.1 Calcium Magnesium Total Bilirubin Direct Bilirubin AST ALT Alkaline Phosphatase B-Natriuretic Peptide Total Protein Albumin Lipase Urine Color STRAW Urine Appearance CLEAR Urine pH 5.5 Ur Specific [place] <= 1.005 Urine Protein NEG Urine Glucose (UA) NEG Urine Ketones 15 Urine Blood NEG Urine Nitrite NEG Ur Leukocyte Esterase NEG Stool Occult Blood NEGATIVE COVID-19 (CAM) COVID-19 Clin Com Imaging Radiologist's Impressions: Impressions Chest X-Ray 07/05/21 12:25 IMPRESSION: Few bilateral streaky and patchy airspace opacities and associated bronchial wall thickening. Abdomen/Pelvis CT 07/05/21 13:30 IMPRESSION: 1. Solitary 5 cm Central mixed density relatively circumscribed mass is identified in the periportal region inseparable from the liver producing mass effect in the form of displacement of the inferior vena cava, gallbladder and common bile duct, resulting in minimal central biliary ductal dilatation. Follow-up multiphasic nonemergent pre and postcontrast MRI of the liver is recommended for further full detail evaluation. There are no prior studies available for comparison. 2. Mild fullness of both renal pelvicalyceal system and mild diffuse thickening of the bladder wall. 3. Qtkcy-ur-gcjayjjo volume free fluid within the dependent part of the pelvis. 4. Abnormal lung bases with peribronchiolar nodular airspace disease at right lower lobe and right middle lobe, most consistent with infection/pneumonia. This critical result was discussed with PEYMAN Edward at 2:02 PM on 07/05/2021 and it was ascertained that the content and urgency of the report was understood at the time of direct communication. Fleischner guidelines were followed. Assessment and Plan (1) Pneumonia: Status: Acute (2) Liver mass: Status: Acute (3) Anemia: Status: Acute Plan A 75 years old lady with PMH of hypertension, HLD, hypothyroidism who presents to the hospital complaining of coughing, weakness, right flank pain for the last few days. Pneumonia Not septic Pending blood culture continue IV antibiotic of ceftriaxone and is azithromycin Oxygen supplement as needed Liver mass CT scan as reported, concerns over mass effect Check AFP Monitor liver enzymes Get GI evaluation Anemia , acute on chronic Negative occult blood Check folic, B12, iron profile No need for transfusion Hold Naproxen, Start Omeprazole Hypertension Continue lisinopril and Cardizem Hypothyroid continue lisinopril DVT PPX Heparin Quality Stroke Does the patient have a stroke diagnosis?: No VTE Prior VTE?: No VTE Risk Level:: Medical - moderate - high VTE Device Contraindication: Treatment Not Indicated VTE Drug Contraindication: N/A - Med Ordered
--- NOTE | 2021-07-05 15:52 | PHA.MEDREC ---
Pharmacy Consult ? Medication Reconciliation Pharmacy has completed the medication reconciliation. Patient wasn't a great historian so she told me to call her ARRANGER ASSEMBLER Rukhsana [phone]. The ARRANGER ASSEMBLER also didn't seem to truly know the patients medications. I went through the list I had from the external pharmacy fill history and she said she believed the patient was taking those medications. The patient stated she hadn't taken any medications today and when I asked the last time she took them she said last month.
[2021-07-05 15:59] LABS: Iron 12 mcg/dL (30-160); Percent Iron Saturation 6 % (15-50); Total Iron Binding Capacity 196 mcg/dL (228-428); Unsaturated Iron Binding 184 ug/dL
[2021-07-05] MEDS: 0.9 % Sodium Chloride Flush 3 ML SYRINGE IVFLUSH (17:32)
[2021-07-05] MEDS: Heparin Sodium,Porcine 5,000 UNIT/ML VIAL 5000 UNIT SUBCUT (17:32)
[2021-07-05] MEDS: Omeprazole 40 MG CAPSULE.DR PO (17:32)
[2021-07-05] MEDS: Benzonatate 100 MG CAPSULE PO (20:24)
--- NOTE | 2021-07-05 21:49 | PC.NURSE ---
report given to overflow by aubrey butler. Pending transportation to floor
--- NOTE | 2021-07-05 21:50 | PC.NURSE ---
Report given to Carlos in [facility], morgue technician at bedside for transport.
[2021-07-06] MEDS: 0.9 % Sodium Chloride Flush 3 ML SYRINGE IVFLUSH ×3 (03:47→17:25)
[2021-07-06] MEDS: Omeprazole 40 MG CAPSULE.DR PO (06:08)
[2021-07-06 07:52] LABS: Anion Gap 12 (12-20); Blood Urea Nitrogen 19 mg/dL (9-16); Carbon Dioxide 28 mmol/L (22-29); Chloride 102 mmol/L (96-108); Creatinine Clr Calc Pharmacy 41.9; Estimated Glomerular Filt Rate > 60; Glucose Random 99 mg/dL (60-115); Potassium 4.3 mmol/L (3.3-5.1); Sodium 138 mmol/L (135-145)
[2021-07-06 08:14] LABS: Hematocrit 25.8 % (37.0-47.0); Hemoglobin 8.1 g/dl (12.0-16.0); Mean Corpuscular HGB Conc 31.4 g/dl (31.0-35.0); Mean Corpuscular Hemoglobin 27.5 pg (27.0-33.0); Mean Corpuscular Volume 87.5 fL (80.0-98.0); Platelet Count 291 X10*3/uL (160-400); Red Blood Count 2.95 X10*6/uL (4.20-5.50); Red Cell Distribution Width 12.4 % (11.0-16.0); White Blood Count 4.5 X10*3/uL (4.8-10.8)
[2021-07-06 08:30] VITALS: BP 126/75; PULSE 82; RESP 15; TEMP 37; O2SAT 97
[2021-07-06] MEDS: Benzonatate 100 MG CAPSULE PO ×3 (08:56→22:57)
[2021-07-06] MEDS: dilTIAZem HCL CD 180 MG CAP.ER.24H PO (08:56)
[2021-07-06] MEDS: Levothyroxine Sodium 88 MCG TABLET PO (08:56)
[2021-07-06] MEDS: lisinopriL 10 MG TABLET PO (08:57)
[2021-07-06] MEDS: Heparin Sodium,Porcine 5,000 UNIT/ML VIAL 5000 UNIT SUBCUT ×2 (08:57→17:24)
[2021-07-06] MEDS: Atorvastatin Calcium 20 MG TABLET PO (08:57)
[2021-07-06] MEDS: Cholecalciferol (Vitamin D3) 25 MCG TABLET PO (08:57)
[2021-07-06] MEDS: Sodium Ferric Gluconat/Sucrose 125 MG in 0.9 % Sodium Chloride 100 ML 100 MG IV (08:58)
--- NOTE | 2021-07-06 10:03 | P.CNGI_ITS ---
History of Present Illness Data of Consult Service Date: 07/06/21 Requesting physician: Neville Elliott Primary Care Provider: Jefferson Sosa MD [facility] Reason for consult: Liver mass 75 YF with htn presented to [facility] ED on 07/05/21 with Cough, weakness, abd pain A 75 years old lady with PMH of hypertension, HLD, hypothyroidism who presents to the hospital complaining of coughing, weakness, right flank pain for the last few days. The patient reported she started to cough and have subjective fevers over the last few days with associated feeling of weakness and lightheadedness.? Yester day she started to feel pain in her right upper quadrant that is mild to moderate, intermittent, not radiating and other place a not associated with any other symptoms.? She reported decrease in oral intake and feeling nauseated so she could not eat much.? Denies any chest pain, palpitation, change in bowel habit, urinary symptoms or any focal weakness.? She reports losing weight over the last few months and decreased appetite generally. Labs showed normocytic normochromic anemia with a drop in hemoglobin to 8.7 from baseline above 10.? Normal LFTs and lipase Occult stool negative.? Chest x-ray showing possible bilateral infiltrate suggestive of pneumonia.? The patient was started on antibiotics and admitted for further evaluation and treatment. Pt complains of RUQ pain for the past 3 days. She also notes lower abdominal pain radiating to the right groin. She had fever and chills 2 days ago and none at present. She also notes cough with some phlegm and denies shortness of breath. Patient denies symptoms of heartburn, dysphagia. She notes some nausea and diarrhea for the past few day and thinks she may have lost some weight. Denies recent black stools or rectal bleeding. Patient denies major cardiac or pulmonary problems, loud snoring. She has sleep apnea in the past and none at present. Patient denies smoking or EtOH abuse. Denies being on chronic anticoagulation. Patient denies known family history of colon polyps, colon cancer or other GI malignancies. Dad of lung cancer (he was a smoker) Patient is , lives alone and has 3 children (2 daughters in [place] and a son in [place]) IMAGING STUDIES: 07/05/[address] SCAN SHOWED (personaly reviewed): 1. Solitary 5 cm Central mixed density relatively circumscribed mass is identified in the periportal region inseparable from the liver producing mass effect in the form of displacement of the inferior vena cava, gallbladder and common bile duct, resulting in minimal central biliary ductal dilatation. Follow-up multiphasic nonemergent pre and postcontrast MRI of the liver is recommended for further full detail evaluation. ? There are no prior studies available for comparison. 2. Mild fullness of both renal pelvicalyceal system and mild diffuse thickening of the bladder wall. 3. [id number] volume free fluid within the dependent part of the pelvis. 4. Abnormal lung bases with peribronchiolar nodular airspace disease at right lower lobe and right middle lobe, most consistent with infection/pneumonia. ? ENDOSCOPIC STUDIES: 02/2018 EGD WITH DILATION WAS PERFORMED BY DR GRIMALDO: showed a small hiatal hernia. Esophageal biopsies were negative for EOE. Pt reports she had a colonoscopy a few yrs ago at [facility] and no report is available Review of Systems Constitutional: Constitutional: Reports chills, Reports fever(s) (Subjective) and Reports weakness Cardiovascular: Cardiovascular: Denies chest pain, Denies irregular heart rhythm and Reports dyspnea Respiratory: Respiratory: Reports cough and Reports dyspnea Gastrointestinal: Gastrointestinal: Reports abdominal pain and Reports nausea Genitourinary: Genitourinary: Reports no additional female genitourinary complaints Neurologic: Reports weakness PMFSH Past Medical History Medical History (Updated 07/24/21 @ 07:49 by Jenn Hairston PA-C) Allergic rhinitis Anemia Chronic renal failure Depressive disorder Elevated blood sugar HTN (hypertension) Injury of right knee Obesity Osteoarthritis Renal cyst Vitamin deficiency, unspecified Surgical History Surgical History (Updated 07/24/21 @ 07:49 by Jenn Hairston PA-C) History of section History of esophagogastroduodenoscopy (EGD) (~2017) History of liver biopsy (~2021) Social History Social History (Updated 07/23/21 @ 14:27 by Kala Anthony CMA) Household Members: None Housing: Apartment Are you a primary career representative to a significant other at home: No Do you presently have visiting nurse or other home services: Yes (nursing care partner) Patient Tobacco Use Status: Never used Tobacco service: No Current occupational status: retired and disabled Meds Allergies Allergy/AdvReac Type Severity Reaction Status Date / Time No Known Allergies Allergy Unverified 07/23/21 14:27 [No Known Allergies*] Active Medications: Current Medications Acetaminophen (Acetaminophen 325 Mg Tablet) 650 mg PO Q6H PRN PRN Reason: Pain, Mild (Pain Scale 1-3) Atorvastatin Calcium (Atorvastatin Calcium 20 Mg Tablet) 20 mg PO DAILY [facility] Last Admin: 07/06/21 08:57 Dose: 20 mg Documented by: Benzonatate (Benzonatate 100 Mg Capsule) 100 mg PO TID [facility] Last Admin: 07/06/21 08:56 Dose: 100 mg Documented by: Diltiazem HCl (Diltiazem Hcl Cd 180 Mg Cap.Er.24h) 180 mg PO DAILY [facility]; Protocol Last Admin: 07/06/21 08:56 Dose: 180 mg Documented by: Fluticasone Propionate (Fluticasone Propionate Nasal 16 Gm [place]) 1 spray NOSTRIL-B DAILY [facility] Heparin Sodium (Porcine) (Heparin Sodium,Porcine 5,000 Unit/Ml Vial) 5,000 unit SUBCUT Q8H [facility] Last Admin: 07/06/21 08:57 Dose: 5,000 unit Documented by: Ceftriaxone Sodium 1 gm/ (Sodium Chloride) 50 mls @ 100 mls/hr IV Q24H [facility] Azithromycin 500 mg/ Sodium (Chloride) 250 mls @ 125 mls/hr IV Q24H [facility] Ferric Sodium Gluconate Complex 125 mg/ Sodium Chloride 110 mls @ 100 mls/hr IV DAILY [facility] Stop: 07/08/21 10:05 Last Admin: 07/06/21 08:58 Dose: 100 mls/hr Documented by: Levothyroxine Sodium (Levothyroxine Sodium 88 Mcg Tablet) 88 mcg PO DAILY@0600 [facility] Last Admin: 07/06/21 08:56 Dose: 88 mcg Documented by: Lisinopril (Lisinopril 10 Mg Tablet) 10 mg PO DAILY [facility]; Protocol Last Admin: 07/06/21 08:57 Dose: 10 mg Documented by: Omeprazole (Omeprazole 40 Mg Capsule.) 40 mg PO DAILY@0630 [facility] Last Admin: 07/06/21 06:08 Dose: 40 mg Documented by: Ondansetron HCl (Ondansetron Hcl 4 Mg/2 Ml Vial) 4 mg IVPUSH Q8H PRN PRN Reason: Nausea and Vomiting Pharmacy Consult (Consult Rx Perform Med Rec) 1 each MISCELLANE ONCE PRN PRN Reason: Consult order Sodium Chloride (0.9 % Sodium Chloride Flush 3 Ml Syringe) 3 ml IVFLUSH QSHIFT [facility] Last Admin: 07/06/21 09:03 Dose: 3 ml Documented by: Vitamin D (Cholecalciferol (Vitamin D3) 25 Mcg Tablet) 25 mcg PO DAILY [facility] Last Admin: 07/06/21 08:57 Dose: 25 mcg Documented by: Home Medications Medication Instructions Recorded Confirmed Last Taken Type cholecalciferol (vitamin D3) 25 1 tab PO DAILY 07/05/21 08/08/21 Unknown History mcg (1,000 unit) tablet cyanocobalamin (vitamin B-12) 500 1 tab DAILY 07/05/21 08/08/21 Unknown History mcg tablet cetirizine 10 mg tablet 1 tab DAILY 07/23/21 08/08/21 Unknown History lisinopril 10 mg tablet 1 tab DAILY 07/24/21 08/08/21 Unknown History Physical Exam Vital Signs: Vital Signs: Last Vital Signs Temp 98.6 F 07/06/21 08:30 Pulse 82 07/06/21 08:30 Resp 15 07/06/21 08:30 BP 126/75 07/06/21 08:30 Pulse Ox 97 07/06/21 08:30 BMI result Body Mass Index 19.5 Const: General: healthy appearing and no acute distress Nutritional Appearance: underweight Orientation/consciousness: patient oriented x3 Limitations: no limitations HENMT: Head: Yes normal to inspection Ears: hearing grossly normal bilaterally Mouth: Normal oral and palatal mucosa present Eyes: Sclerae: sclerae normal Pupils: Equal, round and reactive pupils present Neck: Neck: Yes normal visual inspection Chest: Chest palpation & inspection: normal inspection of the chest Resp: Effort & Inspection: normal respiratory effort Auscultation: clear to auscultation bilaterally Cardio: Palpation: normal PMI Rate: regular rate Rhythm: regular rhythm Heart sounds: S1 normal heart sound present, S2 normal heart sound present and no murmurs GI: Palpation (GI): Soft to palpation, Tenderness to palpation present (GI) ([id number] RUQ and RLQ tenderness without rebound) and No hepatosplenomegaly present Auscultation: normal bowel sounds Rectal Exam - Female: deferred Skin: General skin exam: no rashes or lesions noted Neuro: General: patient oriented x3, gait normal and moves all extremities Cranial nerves: Yes Equal, round and reactive pupils present Psych: Appearance: grossly normal Mental Status: mental status grossly normal Results Labs CBC & Chem 7: 07/07/21 05:53 07/07/21 05:52 Labs: Short CBC 07/05/21 07/05/21 07/06/21 Range/Units 12:32 13:56 07:16 WBC 5.4 5.1 4.5 L (4.8-10.8) X10*3/uL Hgb 8.7 L 8.6 L 8.1 L (12.0-16.0) g/dl Hct 27.3 L 27.3 L 25.8 L (37.0-47.0) % Plt Count 291 286 291 (160-400) X10*3/uL BMP 07/05/21 07/06/21 12:32 07:16 Sodium 137 138 Potassium 4.3 4.3 Chloride 99 102 Carbon Dioxide 26 28 BUN 20 H 19 H Creatinine 1.03 0.91 Calcium 9.2 9.0 Liver Function 07/05/21 Range/Units 12:32 Total Bilirubin 0.8 (0.0-1.0) mg/dL Direct Bilirubin 0.3 (0.0-0.5) mg/dL AST 12 (5-31) U/L ALT < 6 (0-31) U/L Alkaline Phosphatase 91 (39-117) U/L Albumin 3.5 (3.5-5.0) g/dL Urine 07/05/21 Range/Units 14:35 Urine Color STRAW Urine Appearance CLEAR Urine pH 5.5 (5.0-8.0) Ur Specific [place] <= 1.005 (1.005-1.025) Urine Protein NEG (NEG-TRACE) MG/DL Urine Glucose (UA) NEG (NEG) MG/DL Assessment and Plan (1) Liver mass: Status: Acute (2) Anemia: Status: Acute Plan 75 YF with hypertension, HLD, hypothyroidism admitted to [facility] with cough, weakness, right flank pain for the last few days. She reports losing weight over the last few months and decreased appetite generally. Labs showed normocytic normochromic anemia with a drop in hemoglobin to 8.7 from baseline above 10.? Iron studies are suggestive of anemia of chronic disease Normal LFTs and lipase. Occult stool negative.? Abd CT scan showed a solitary 5 cm Central mixed density relatively circumscribed mass in the periportal region inseparable from the liver producing mass effect in the form of displacement of the inferior vena cava, gallbladder and common bile duct, resulting in minimal central biliary ductal dilatation. Liver mass may be primary liver cancer (usually related to chronic Hepatitis B or C) or metastatic RECOMMENDATIONS: 1. Continue IV antibiotics 2. Multiphasic pre and postcontrast MRI of the liver as advised by radiology. 3. Check CEA, AFP and CA 19-9, Hepatitis B and C serologies - order placed 4. 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 See description and comment. COMMENT: The findings are non-specific as to site of origin.? The tumor is microsatellite stable by immunohistochemistry.? Very little tissue remains - further testing will require additional sampling. Procedures Date of Service Date of Service: 07/06/21
--- NOTE | 2021-07-06 12:30 | P.PNIM_ITS ---
Subjective Subjective Date of Service: 07/06/21 Interval History: the patient was seen and evaluated this morning Laying in bed, feels better overall but still complaining of right loin pain Denies any fever, chills or shortness of breath No reported other overnight events. Review of Systems Reporting feeling chills and having subjective fever with increased generalized weakness No chest pain, palpitation Still reporting cough Right upper quadrant pain with associated nausea No urinary symptoms No any rash or wounds Physical Exam Vital Signs: Vital Signs: Last Vital Signs Temp 98.6 F 07/06/21 08:30 Pulse 82 07/06/21 08:30 Resp 15 07/06/21 08:30 BP 126/75 07/06/21 08:30 Pulse Ox 97 07/06/21 08:30 BMI result Body Mass Index 19.5 Const: Other: Constitutional : Alert, oriented, not in distress Neck : Normal inspection, Supple Cardiovascular : RRR, S1 S2, no lower extremity edema Respiratory : Fair bilateral air entry, basal bilateral fine crackles, no wheezes or rhonchi Gastrointestinal: soft, lax, Normal bowel sounds, Non tender Skin : Warm, Dry Neurological : Alert & oriented x3, No focal deficit Objective Data Active Medications Acetaminophen (Acetaminophen 325 Mg Tablet) 650 mg PO Q6H PRN PRN Reason: Pain, Mild (Pain Scale 1-3) Atorvastatin Calcium (Atorvastatin Calcium 20 Mg Tablet) 20 mg PO DAILY [facility] Last Admin: 07/06/21 08:57 Dose: 20 mg Documented by: NISA Benzonatate (Benzonatate 100 Mg Capsule) 100 mg PO TID [facility] Last Admin: 07/06/21 08:56 Dose: 100 mg Documented by: NISA Diltiazem HCl (Diltiazem Hcl Cd 180 Mg Cap.Er.24h) 180 mg PO DAILY [facility]; Protocol Last Admin: 07/06/21 08:56 Dose: 180 mg Documented by: NISA Fluticasone Propionate (Fluticasone Propionate Nasal 16 Gm [place]) 1 spray NOSTRIL-B DAILY [facility] Last Admin: 07/06/21 10:19 Dose: Not Given Documented by: NISA Non-Admin Reason: unavail Heparin Sodium (Porcine) (Heparin Sodium,Porcine 5,000 Unit/Ml Vial) 5,000 unit SUBCUT Q8H [facility] Last Admin: 07/06/21 08:57 Dose: 5,000 unit Documented by: NISA Ceftriaxone Sodium 1 gm/ (Sodium Chloride) 50 mls @ 100 mls/hr IV Q24H [facility] Azithromycin 500 mg/ Sodium (Chloride) 250 mls @ 125 mls/hr IV Q24H [facility] Ferric Sodium Gluconate Complex 125 mg/ Sodium Chloride 110 mls @ 100 mls/hr IV DAILY [facility] Stop: 07/08/21 10:05 Last Infusion: 07/06/21 10:19 Dose: 0 mls/hr Documented by: NISA Levothyroxine Sodium (Levothyroxine Sodium 88 Mcg Tablet) 88 mcg PO DAILY@0600 [facility] Last Admin: 07/06/21 08:56 Dose: 88 mcg Documented by: NISA Lisinopril (Lisinopril 10 Mg Tablet) 10 mg PO DAILY [facility]; Protocol Last Admin: 07/06/21 08:57 Dose: 10 mg Documented by: NISA Omeprazole (Omeprazole 40 Mg Capsule.) 40 mg PO DAILY@0630 [facility] Last Admin: 07/06/21 06:08 Dose: 40 mg Documented by: DALILA Ondansetron HCl (Ondansetron Hcl 4 Mg/2 Ml Vial) 4 mg IVPUSH Q8H PRN PRN Reason: Nausea and Vomiting Pharmacy Consult (Consult Rx Perform Med Rec) 1 each MISCELLANE ONCE PRN PRN Reason: Consult order Sodium Chloride (0.9 % Sodium Chloride Flush 3 Ml Syringe) 3 ml IVFLUSH QSHIFT [facility] Last Admin: 07/06/21 09:03 Dose: 3 ml Documented by: NISA Vitamin D (Cholecalciferol (Vitamin D3) 25 Mcg Tablet) 25 mcg PO DAILY [facility] Last Admin: 07/06/21 08:57 Dose: 25 mcg Documented by: NISA Labs CBC & Chem 7: 07/06/21 07:16 07/06/21 07:16 Labs: Laboratory Results - last 24 hr 07/05/21 07/05/21 07/05/21 12:32 12:32 12:32 MCV 88.6 MCH 28.2 MCHC 31.9 RDW 12.6 Plt Count 291 MPV 9.4 Immature Gran % (Auto) 0.6 H Neut % (Auto) 85.8 H Lymph % (Auto) 8.1 L Randall % (Auto) 4.6 Eos % (Auto) 0.7 Baso % (Auto) 0.2 Lymph # (Auto) 0.4 L Randall # (Auto) 0.3 Eos # (Auto) 0.0 Baso # (Auto) 0.0 Abs Immat Gran (auto) 0.03 Absolute Neuts (auto) 4.7 Absolute Nucleated RBC 0.000 Nucleated RBC % (auto) 0.0 Anion Gap 16 Estim Creat Clear Calc 37.1 Estimated GFR 53 Random Glucose 82 Lactic Acid Calcium 9.2 Magnesium 2.3 Iron 12 L TIBC 196 L % Saturation 6 L Unsat Iron Binding 184 Total Bilirubin 0.8 Direct Bilirubin 0.3 AST 12 ALT < 6 Alkaline Phosphatase 91 B-Natriuretic Peptide 137 H Total Protein 7.5 Albumin 3.5 Lipase 4 L Urine Color Urine Appearance Urine pH Ur Specific [place] Urine Protein Urine Glucose (UA) Urine Ketones Urine Blood Urine Nitrite Ur Leukocyte Esterase Stool Occult Blood COVID-19 (CAM) COVID-[place] 07/05/21 07/05/21 07/05/21 12:32 12:32 13:56 MCV 89.2 MCH 28.1 MCHC 31.5 RDW 12.6 Plt Count 286 MPV 9.5 Immature Gran % (Auto) 0.4 Neut % (Auto) 86.1 H Lymph % (Auto) 8.7 L Randall % (Auto) 4.0 Eos % (Auto) 0.4 Baso % (Auto) 0.4 Lymph # (Auto) 0.4 L Randall # (Auto) 0.2 Eos # (Auto) 0.0 Baso # (Auto) 0.0 Abs Immat Gran (auto) 0.02 Absolute Neuts (auto) 4.4 Absolute Nucleated RBC 0.000 Nucleated RBC % (auto) 0.0 Anion Gap Estim Creat Clear Calc Estimated GFR Random Glucose Lactic Acid Calcium Magnesium Iron TIBC % Saturation Unsat Iron Binding Total Bilirubin Direct Bilirubin AST ALT Alkaline Phosphatase B-Natriuretic Peptide Cancelled Total Protein Albumin Lipase Urine Color Urine Appearance Urine pH Ur Specific [place] Urine Protein Urine Glucose (UA) Urine Ketones Urine Blood Urine Nitrite Ur Leukocyte Esterase Stool Occult Blood COVID-19 (CAM) Negative COVID-19 [employer] See Note 07/05/21 07/05/21 07/05/21 13:56 14:22 14:35 MCV MCH MCHC RDW Plt Count MPV Immature Gran % (Auto) Neut % (Auto) Lymph % (Auto) Randall % (Auto) Eos % (Auto) Baso % (Auto) Lymph # (Auto) Randall # (Auto) Eos # (Auto) Baso # (Auto) Abs Immat Gran (auto) Absolute Neuts (auto) Absolute Nucleated RBC Nucleated RBC % (auto) Anion Gap Estim Creat Clear Calc Estimated GFR Random Glucose Lactic Acid 1.1 Calcium Magnesium Iron TIBC % Saturation Unsat Iron Binding Total Bilirubin Direct Bilirubin AST ALT Alkaline Phosphatase B-Natriuretic Peptide Total Protein Albumin Lipase Urine Color STRAW Urine Appearance CLEAR Urine pH 5.5 Ur Specific [place] <= 1.005 Urine Protein NEG Urine Glucose (UA) NEG Urine Ketones 15 Urine Blood NEG Urine Nitrite NEG Ur Leukocyte Esterase NEG Stool Occult Blood NEGATIVE COVID-19 (CAM) COVID-19 [employer] 07/06/21 07/06/21 07:16 07:16 MCV 87.5 MCH 27.5 MCHC 31.4 RDW 12.4 Plt Count 291 MPV 10.0 Immature Gran % (Auto) Neut % (Auto) Lymph % (Auto) Randall % (Auto) Eos % (Auto) Baso % (Auto) Lymph # (Auto) Randall # (Auto) Eos # (Auto) Baso # (Auto) Abs Immat Gran (auto) Absolute Neuts (auto) Absolute Nucleated RBC 0.000 Nucleated RBC % (auto) 0.0 Anion Gap 12 Estim Creat Clear Calc 41.9 Estimated GFR > 60 Random Glucose 99 Lactic Acid Calcium 9.0 Magnesium Iron TIBC % Saturation Unsat Iron Binding Total Bilirubin Direct Bilirubin AST ALT Alkaline Phosphatase B-Natriuretic Peptide Total Protein Albumin Lipase Urine Color Urine Appearance Urine pH Ur Specific [place] Urine Protein Urine Glucose (UA) Urine Ketones Urine Blood Urine Nitrite Ur Leukocyte Esterase Stool Occult Blood COVID-19 (CAM) COVID-19 [employer] Assessment and Plan (1) Pneumonia: Status: Acute (2) Liver mass: Status: Acute (3) ELIF (iron deficiency anemia): Status: Acute Plan A 75 years old lady with PMH of hypertension, HLD, hypothyroidism who presents to the hospital complaining of coughing, weakness, right flank pain for the last few days. Pneumonia Not septic Pending blood culture continue IV antibiotic of ceftriaxone and azithromycin Oxygen supplement as needed Liver mass CT scan as reported, concerns over mass effect Check AFP Monitor liver enzymes Pending GI evaluation iron deficiency anemia, acute on chronic Negative occult blood x1 normal folic, B12, Low TIBC, ferritin and iron levels Start IV iron Hold Naproxen, Start Omeprazole Hypertension Continue lisinopril and Cardizem Hypothyroid continue lisinopril DVT PPX Heparin Quality Stroke Does the patient have a stroke diagnosis?: No VTE Prior VTE?: No VTE Risk Level:: Medical - moderate - high VTE Device Contraindication: Treatment Not Indicated VTE Drug Contraindication: N/A - Med Ordered
[2021-07-06] MEDS: Azithromycin 500 MG in 0.9 % Sodium Chloride 250 ML 125 MG IV (13:47)
[2021-07-06 16:00] VITALS: BP 139/67; PULSE 87; RESP 18; TEMP 36.9; O2SAT 98
[2021-07-06] MEDS: cefTRIAXone sodium 1 GM in 0.9 % Sodium Chloride 50 ML IV (17:48)
[2021-07-06 23:57] VITALS: BP 107/57; PULSE 75; RESP 18; TEMP 36.6; O2SAT 97
[2021-07-07] MEDS: Heparin Sodium,Porcine 5,000 UNIT/ML VIAL 5000 UNIT SUBCUT ×3 (00:35→15:47)
[2021-07-07] MEDS: 0.9 % Sodium Chloride Flush 3 ML SYRINGE IVFLUSH ×4 (00:36→20:17)
[2021-07-07 03:58] LABS: Folate 17.9 ng/mL (> or = 4.0); Vitamin B12 853 pg/mL (200-900)
[2021-07-07 04:05] LABS: HBc Num1 0.25 S/CO (0.00-0.79); Hepatitis B Core Antibody Nonreactive (Nonreactive); ~HepC Num1 0.44 S/CO (0.00-0.79); ~Hepatitis B Surface Antibody NONREACTIVE (Nonreactive); ~Hepatitis C Antibody Nonreactive (Nonreactive)
[2021-07-07 04:10] LABS: HBsAGNum1 0.22 S/CO (0.00-0.99); Hepatitis B Surface Antigen Negative (Negative)
[2021-07-07] MEDS: Levothyroxine Sodium 88 MCG TABLET PO (05:28)
[2021-07-07] MEDS: Omeprazole 40 MG CAPSULE.DR PO (05:28)
[2021-07-07 06:21] LABS: Mean Corpuscular HGB Conc 30.8 g/dl (31.0-35.0); Mean Corpuscular Hemoglobin 27.8 pg (27.0-33.0); Mean Corpuscular Volume 90.3 fL (80.0-98.0); Platelet Count 295 X10*3/uL (160-400); Red Blood Count 2.88 X10*6/uL (4.20-5.50); Red Cell Distribution Width 12.7 % (11.0-16.0); White Blood Count 4.5 X10*3/uL (4.8-10.8)
[2021-07-07 06:29] LABS: INTERNATIONAL NORM RATIO 1.1 (0.9-1.1); Prothrombin Time 12.7 SEC (9.9-13.0)
[2021-07-07 06:33] LABS: Anion Gap 14 (12-20); Blood Urea Nitrogen 20 mg/dL (9-16); Calcium 8.9 mg/dL (8.4-10.2); Carbon Dioxide 25 mmol/L (22-29); Chloride 103 mmol/L (96-108); Creatinine Clr Calc Pharmacy 41.1; Estimated Glomerular Filt Rate 59; Glucose Random 111 mg/dL (60-115); Potassium 4.2 mmol/L (3.3-5.1); Sodium 138 mmol/L (135-145)
[2021-07-07 06:40] LABS: Alanine Aminotransferase < 6 U/L (0-31); Albumin Level 3.1 g/dL (3.5-5.0); Alkaline Phosphatase 81 U/L (39-117); Aspartate Amino Transferase 10 U/L (5-31); Bilirubin Direct < 0.2 mg/dL (0.0-0.5); Bilirubin Total 0.2 mg/dL (0.0-1.0); Total Protein 6.6 g/dL (6.5-8.0)
[2021-07-07 07:01] LABS: Ferritin 292 ng/mL (10-250)
[2021-07-07 07:45] VITALS: BP 107/52; PULSE 66; RESP 18; TEMP 36.9; O2SAT 98
[2021-07-07] MEDS: Acetaminophen 325 MG TABLET 650 MG PO (08:05)
[2021-07-07] MEDS: dilTIAZem HCL CD 180 MG CAP.ER.24H PO (08:06)
[2021-07-07] MEDS: lisinopriL 10 MG TABLET PO (08:06)
[2021-07-07] MEDS: Cholecalciferol (Vitamin D3) 25 MCG TABLET PO (08:06)
[2021-07-07] MEDS: Benzonatate 100 MG CAPSULE PO ×3 (08:06→20:17)
[2021-07-07] MEDS: Fluticasone Propionate Nasal 16 GM SPRAY 1 SPRAY NOSTRIL-B (11:05)
[2021-07-07] MEDS: Sodium Ferric Gluconat/Sucrose 125 MG in 0.9 % Sodium Chloride 100 ML 100 MG IV (11:06)
--- NOTE | 2021-07-07 11:50 | P.PNIM_ITS ---
Subjective Subjective Date of Service: 07/07/21 Interval History: the patient was seen and evaluated this morning Reports significant improvement with decrease pain Tolerating diet Denies any fever, chills or shortness of breath No reported other overnight events. Review of Systems No more chills but still reporting generalized weakness No chest pain, palpitation Still reporting cough Right upper quadrant pain improving No urinary symptoms No any rash or wounds Physical Exam Vital Signs: Vital Signs: Last Vital Signs Temp 98.5 F 07/07/21 07:45 Pulse 66 07/07/21 07:45 Resp 18 07/07/21 07:45 BP 107/52 L 07/07/21 07:45 Pulse Ox 98 07/07/21 07:45 BMI result Body Mass Index 19.5 Const: Other: Constitutional : Alert, oriented, not in distress Neck : Normal inspection, Supple Cardiovascular : RRR, S1 S2, no lower extremity edema Respiratory : Fair bilateral air entry, basal bilateral fine crackles, no wheezes or rhonchi Gastrointestinal: soft, lax, Normal bowel sounds, Non tender Skin : Warm, Dry Neurological : Alert & oriented x3, No focal deficit Objective Data Active Medications Acetaminophen (Acetaminophen 325 Mg Tablet) 650 mg PO Q6H PRN PRN Reason: Pain, Mild (Pain Scale 1-3) Last Admin: 07/07/21 08:05 Dose: 650 mg Documented by: CORNELIUS Atorvastatin Calcium (Atorvastatin Calcium 20 Mg Tablet) 20 mg PO DAILY [facility] Last Admin: 07/07/21 08:09 Dose: Not Given Documented by: CORNELIUS Non-Admin Reason: Patient Refused Benzonatate (Benzonatate 100 Mg Capsule) 100 mg PO TID [facility] Last Admin: 07/07/21 08:06 Dose: 100 mg Documented by: CORNELIUS Diltiazem HCl (Diltiazem Hcl Cd 180 Mg Cap.Er.24h) 180 mg PO DAILY [facility]; Protocol Last Admin: 07/07/21 08:06 Dose: 180 mg Documented by: CORNELIUS Fluticasone Propionate (Fluticasone Propionate Nasal 16 Gm [place]) 1 spray NOSTRIL-B DAILY [facility] Last Admin: 07/07/21 11:05 Dose: 1 spray Documented by: CORNELIUS Heparin Sodium (Porcine) (Heparin Sodium,Porcine 5,000 Unit/Ml Vial) 5,000 unit SUBCUT Q8H [facility] Last Admin: 07/07/21 08:06 Dose: 5,000 unit Documented by: CORNELIUS Ceftriaxone Sodium 1 gm/ (Sodium Chloride) 50 mls @ 100 mls/hr IV Q24H [facility] Last Infusion: 07/06/21 18:30 Dose: 0 mls/hr Documented by: NAEL Azithromycin 500 mg/ Sodium (Chloride) 250 mls @ 125 mls/hr IV Q24H [facility] Last Infusion: 07/06/21 17:48 Dose: 0 mls/hr Documented by: NEAL Ferric Sodium Gluconate Complex 125 mg/ Sodium Chloride 110 mls @ 100 mls/hr IV DAILY [facility] Stop: 07/08/21 10:05 Last Admin: 07/07/21 11:06 Dose: 100 mls/hr Documented by: CORNELIUS Levothyroxine Sodium (Levothyroxine Sodium 88 Mcg Tablet) 88 mcg PO DAILY@0600 [facility] Last Admin: 07/07/21 05:28 Dose: 88 mcg Documented by: RANJIT Lisinopril (Lisinopril 10 Mg Tablet) 10 mg PO DAILY [facility]; Protocol Last Admin: 07/07/21 08:06 Dose: 10 mg Documented by: CORNELIUS Omeprazole (Omeprazole 40 Mg Capsule.Dr) 40 mg PO DAILY@0630 [facility] Last Admin: 07/07/21 05:28 Dose: 40 mg Documented by: RANJIT Ondansetron HCl (Ondansetron Hcl 4 Mg/2 Ml Vial) 4 mg IVPUSH Q8H PRN PRN Reason: Nausea and Vomiting Pharmacy Consult (Consult Rx Perform Med Rec) 1 each MISCELLANE ONCE PRN PRN Reason: Consult order Sodium Chloride (0.9 % Sodium Chloride Flush 3 Ml Syringe) 3 ml IVFLUSH QSHIFT [facility] Last Admin: 07/07/21 08:07 Dose: 3 ml Documented by: CORNELIUS Vitamin D (Cholecalciferol (Vitamin D3) 25 Mcg Tablet) 25 mcg PO DAILY [facility] Last Admin: 07/07/21 08:06 Dose: 25 mcg Documented by: CORNELIUS Labs CBC & Chem 7: 07/07/21 05:53 07/07/21 05:52 Labs: Laboratory Results - last 24 hr 07/05/21 07/06/21 07/07/21 12:32 07:25 05:52 MCV MCH MCHC RDW Plt Count MPV Absolute Nucleated RBC Nucleated RBC % (auto) PT INR Anion Gap 14 Estim Creat Clear Calc 41.1 Estimated GFR 59 Random Glucose 111 Calcium 8.9 Ferritin Total Bilirubin Direct Bilirubin AST ALT Alkaline Phosphatase Total Protein Albumin Carcinoembryonic Ag Vitamin B12 853 Folate 17.9 Hep Bs Antigen Negative Hep Bs Antibody NONREACTIVE Hep B Core Total Ab Nonreactive Hepatitis C Ab (EIA) Nonreactive 07/07/21 07/07/21 07/07/21 05:52 05:52 05:53 MCV 90.3 MCH 27.8 MCHC 30.8 L RDW 12.7 Plt Count 295 MPV 10.0 Absolute Nucleated RBC 0.000 Nucleated RBC % (auto) 0.0 PT 12.7 INR 1.1 Anion Gap Estim Creat Clear Calc Estimated GFR Random Glucose Calcium Ferritin Total Bilirubin 0.2 Direct Bilirubin < 0.2 AST 10 ALT < 6 Alkaline Phosphatase 81 Total Protein 6.6 Albumin 3.1 L Carcinoembryonic Ag Vitamin B12 Folate Hep Bs Antigen Hep Bs Antibody Hep B Core Total Ab Hepatitis C Ab (EIA) 07/07/21 05:53 MCV MCH MCHC RDW Plt Count MPV Absolute Nucleated RBC Nucleated RBC % (auto) PT INR Anion Gap Estim Creat Clear Calc Estimated GFR Random Glucose Calcium Ferritin 292 H Total Bilirubin Direct Bilirubin AST ALT Alkaline Phosphatase Total Protein Albumin Carcinoembryonic Ag 0.80 Vitamin B12 Folate Hep Bs Antigen Hep Bs Antibody Hep B Core Total Ab Hepatitis C Ab (EIA) Microbiology Microbiology Results: Microbiology 07/05/21 13:56 Blood Culture - Preliminary Blood - Venous No growth after 24 hours. 07/05/21 13:56 Blood Culture - Preliminary Blood - Venous No growth after 24 hours. Assessment and Plan (1) ELIF (iron deficiency anemia): Status: Acute (2) Pneumonia: Status: Acute (3) Liver mass: Status: Acute Plan A 75 years old lady with PMH of hypertension, HLD, hypothyroidism who presents to the hospital complaining of coughing, weakness, right flank pain for the last few days. Pneumonia Not septic Negative blood culture continue IV antibiotic of ceftriaxone and azithromycin Liver mass CT scan as reported, concerns over mass effect Check AFP Monitor liver enzymes GI input appreciated, to do MRI of the abdomen To do CT-guided biopsy by tomorrow iron deficiency anemia, acute on chronic Negative occult blood x1 normal folic, B12, Low TIBC, ferritin and iron levels Continue IV iron day 2 Hold Naproxen, Start Omeprazole Hypertension Continue lisinopril and Cardizem Hypothyroid continue lisinopril DVT PPX Heparin Quality Stroke Does the patient have a stroke diagnosis?: No VTE Prior VTE?: No VTE Risk Level:: Medical - moderate - high VTE Device Contraindication: Treatment Not Indicated VTE Drug Contraindication: N/A - Med Ordered
[2021-07-07] MEDS: Azithromycin 500 MG in 0.9 % Sodium Chloride 250 ML 125 MG IV (12:53)
[2021-07-07] MEDS: cefTRIAXone sodium 1 GM in 0.9 % Sodium Chloride 50 ML IV (15:08)
[2021-07-07 15:40] VITALS: BP 99/54; PULSE 68; RESP 16; TEMP 36.6; O2SAT 98
--- NOTE | 2021-07-07 16:08 | MHC.CM.PN ---
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 D/C PLAN: HOME W/RESUMP OF ROUTE DELIVERY DRIVER HRS AND POSSIBLY VNA, PT REPORTS HER FRIEND FROM THE BUILDING WILL BRING HER HOME
[2021-07-07] MEDS: iohexoL 350 MG/ML 100 ML INFUS..BTL IV (17:01)
[2021-07-07 23:53] VITALS: BP 151/72; PULSE 102; RESP 18; TEMP 36.6; O2SAT 99
[2021-07-08] MEDS: hydrOXYzine HCL 25 MG TABLET PO (00:27)
[2021-07-08 07:41] VITALS: BP 117/62; PULSE 93; RESP 18; TEMP 36.9; O2SAT 97
[2021-07-08] MEDS: dilTIAZem HCL CD 180 MG CAP.ER.24H PO (08:08)
[2021-07-08] MEDS: Atorvastatin Calcium 20 MG TABLET PO (08:08)
[2021-07-08] MEDS: Cholecalciferol (Vitamin D3) 25 MCG TABLET PO (08:08)
[2021-07-08] MEDS: Benzonatate 100 MG CAPSULE PO ×3 (08:08→19:41)
[2021-07-08] MEDS: 0.9 % Sodium Chloride Flush 3 ML SYRINGE IVFLUSH ×2 (08:09→16:54)
[2021-07-08 09:18] LABS: HIV AB/AG Nonreactive (Nonreactive); HIV Num 1 0.17 S/CO (0.00-0.99)
[2021-07-08] MEDS: Sodium Ferric Gluconat/Sucrose 125 MG in 0.9 % Sodium Chloride 100 ML 100 MG IV (10:08)
[2021-07-08] MEDS: Fluticasone Propionate Nasal 16 GM SPRAY 1 SPRAY NOSTRIL-B (10:11)
--- NOTE | 2021-07-08 11:22 | P.PNIM_ITS ---
Subjective Subjective Date of Service: 07/08/21 Interval History: the patient was seen and evaluated this morning Less pain in her abdomen Able to tolerate diet well Denies any fever, chills or shortness of breath No reported other overnight events. Review of Systems No more chills but still reporting generalized weakness No chest pain, palpitation Cough improving Right upper quadrant pain improving No urinary symptoms No any rash or wounds Physical Exam Vital Signs: Vital Signs: Last Vital Signs Temp 98.4 F 07/08/21 07:41 Pulse 93 07/08/21 07:41 Resp 18 07/08/21 07:41 BP 117/62 07/08/21 07:41 Pulse Ox 97 07/08/21 07:41 BMI result Body Mass Index 19.5 Const: Other: Constitutional : Alert, oriented, not in distress Neck : Normal inspection, Supple Cardiovascular : RRR, S1 S2, no lower extremity edema Respiratory : Fair bilateral air entry, basal bilateral fine crackles, no wheezes or rhonchi Gastrointestinal: soft, lax, Normal bowel sounds, Non tender Skin : Warm, Dry Neurological : Alert & oriented x3, No focal deficit Objective Data Active Medications Acetaminophen (Acetaminophen 325 Mg Tablet) 650 mg PO Q6H PRN PRN Reason: Pain, Mild (Pain Scale 1-3) Last Admin: 07/07/21 08:05 Dose: 650 mg Documented by: CORNELIUS Atorvastatin Calcium (Atorvastatin Calcium 20 Mg Tablet) 20 mg PO DAILY [facility] Last Admin: 07/08/21 08:08 Dose: 20 mg Documented by: JOSSY Benzonatate (Benzonatate 100 Mg Capsule) 100 mg PO TID [facility] Last Admin: 07/08/21 08:08 Dose: 100 mg Documented by: JOSSY Diltiazem HCl (Diltiazem Hcl Cd 180 Mg Cap.Er.24h) 180 mg PO DAILY [facility]; Protocol Last Admin: 07/08/21 08:08 Dose: 180 mg Documented by: JOSSY Fluticasone Propionate (Fluticasone Propionate Nasal 16 Gm [place]) 1 spray NOSTRIL-B DAILY [facility] Last Admin: 07/08/21 10:11 Dose: 1 spray Documented by: JOSSY Heparin Sodium (Porcine) (Heparin Sodium,Porcine 5,000 Unit/Ml Vial) 5,000 unit SUBCUT Q8H [facility] Last Admin: 07/08/21 00:25 Dose: Not Given Documented by: RANJIT Non-Admin Reason: for liver bx in am Ceftriaxone Sodium 1 gm/ (Sodium Chloride) 50 mls @ 100 mls/hr IV Q24H [facility] Last Infusion: 07/07/21 15:43 Dose: 0 mls/hr Documented by: KERON Azithromycin 500 mg/ Sodium (Chloride) 250 mls @ 125 mls/hr IV Q24H [facility] Last Infusion: 07/07/21 15:03 Dose: 0 mls/hr Documented by: CORNELUIS Levothyroxine Sodium (Levothyroxine Sodium 88 Mcg Tablet) 88 mcg PO DAILY@0600 [facility] Last Admin: 07/08/21 05:46 Dose: Not Given Documented by: RANJIT Non-Admin Reason: NPO Lisinopril (Lisinopril 10 Mg Tablet) 10 mg PO DAILY [facility]; Protocol Last Admin: 07/07/21 08:06 Dose: 10 mg Documented by: CORNELIUS Omeprazole (Omeprazole 40 Mg Capsule.Dr) 40 mg PO DAILY@0630 [facility] Last Admin: 07/08/21 05:46 Dose: Not Given Documented by: RANJIT Non-Admin Reason: NPO Ondansetron HCl (Ondansetron Hcl 4 Mg/2 Ml Vial) 4 mg IVPUSH Q8H PRN PRN Reason: Nausea and Vomiting Pharmacy Consult (Consult Rx Perform Med Rec) 1 each MISCELLANE ONCE PRN PRN Reason: Consult order Sodium Chloride (0.9 % Sodium Chloride Flush 3 Ml Syringe) 3 ml IVFLUSH QSHIFT [facility] Last Admin: 07/08/21 08:09 Dose: 3 ml Documented by: JOSSY Vitamin D (Cholecalciferol (Vitamin D3) 25 Mcg Tablet) 25 mcg PO DAILY [facility] Last Admin: 07/08/21 08:08 Dose: 25 mcg Documented by: JOSSY Labs CBC & Chem 7: 07/07/21 05:53 07/07/21 05:52 Labs: Laboratory Results - last 24 hr 07/08/21 08:39 HIV 1&2 Ab/P24 Ag 4thGn Nonreactive Microbiology Microbiology Results: Microbiology 07/05/21 13:56 Blood Culture - Preliminary Blood - Venous No growth after 48 hours. 07/05/21 13:56 Blood Culture - Preliminary Blood - Venous No growth after 48 hours. Assessment and Plan (1) Pneumonia: Status: Acute (2) Liver mass: Status: Acute (3) Cavitary lesion of lung: Status: Acute (4) ELIF (iron deficiency anemia): Status: Acute Plan A 75 years old lady with PMH of hypertension, HLD, hypothyroidism who presents to the hospital complaining of coughing, weakness, right flank pain for the last few days. Pneumonia Not septic Negative blood culture CT scan showing a cavitary lesion continue IV antibiotic of ceftriaxone and azithromycin Get ID evaluation Liver mass CT scan as reported, concerns over mass effect Pending AFP and CA 19-9 , CA negative Monitor liver enzymes GI input appreciated, to do MRI of the abdomen To do US guided biopsy today iron deficiency anemia, acute on chronic Negative occult blood x1 normal folic, B12, Low TIBC, ferritin and iron levels Continue IV iron day 3 Hold Naproxen, Start Omeprazole Hypertension Continue lisinopril and Cardizem Hypothyroid continue lisinopril DVT PPX Heparin Quality Stroke Does the patient have a stroke diagnosis?: No VTE Prior VTE?: No VTE Risk Level:: Medical - moderate - high VTE Device Contraindication: Treatment Not Indicated VTE Drug Contraindication: N/A - Med Ordered
[2021-07-08] MEDS: Azithromycin 500 MG in 0.9 % Sodium Chloride 250 ML 125 MG IV (12:34)
[2021-07-08 13:16] LABS: Alpha Fetoprotein 2.2 ng/mL
--- NOTE | 2021-07-08 15:38 | P.CNID_ITS ---
History of Present Illness Data of Consult Service Date: 07/08/21 Requesting physician: Neville Elliott Primary Care Provider: Jefferson Sosa MD [facility] Reason for consult: pain right flank She presents with right flank and lower chest wall pain for a week. She has no fever or chills. CT lung shows cavitary lesions. There is no known history of TB. Review of Systems Review of Systems: Yes all other systems are reviewed and are negative PMFSH Past Medical History Medical History Anemia HTN (hypertension) Family History Family history: reviewed and not pertinent Social History Social History Household Members: None Housing: Apartment Do you presently have visiting nurse or other home services: No Patient Tobacco Use Status: Never used Tobacco Use of substances other than those prescribed or required for medical reasons: No Currently Displaying Signs/Symptoms of Drug Intoxication Withdrawal: No Have you been hit, kicked, punched, or otherwise hurt by someone within the past year? If so, by whom?: No Do you feel safe in your current relationship?: Yes Is there a partner from a previous relationship who is making you feel unsafe now?: No Are you made to feel afraid or neglected: No Advance Directives: No Advance Directives Information Provided: No Do you have thoughts of harming others: None Do you have a plan to hurt others: No Plan Recently lost weight without trying: No Nutrition Risks: No Nutritional Risk Patient : No : No Poor oral hygiene: No service: No Current occupational status: unemployed Meds Allergies Allergy/AdvReac Type Severity Reaction Status Date / Time No Known Allergies Allergy Unverified 01/25/20 17:49 [No Known Allergies*] Active Medications: Current Medications Acetaminophen (Acetaminophen 325 Mg Tablet) 650 mg PO Q6H PRN PRN Reason: Pain, Mild (Pain Scale 1-3) Last Admin: 07/07/21 08:05 Dose: 650 mg Documented by: Atorvastatin Calcium (Atorvastatin Calcium 20 Mg Tablet) 20 mg PO DAILY [facility] Last Admin: 07/08/21 08:08 Dose: 20 mg Documented by: Benzonatate (Benzonatate 100 Mg Capsule) 100 mg PO TID [facility] Last Admin: 07/08/21 08:08 Dose: 100 mg Documented by: Diltiazem HCl (Diltiazem Hcl Cd 180 Mg Cap.Er.24h) 180 mg PO DAILY [facility]; Protocol Last Admin: 07/08/21 08:08 Dose: 180 mg Documented by: Fluticasone Propionate (Fluticasone Propionate Nasal 16 Gm [place]) 1 spray NOSTRIL-B DAILY [facility] Last Admin: 07/08/21 10:11 Dose: 1 spray Documented by: Heparin Sodium (Porcine) (Heparin Sodium,Porcine 5,000 Unit/Ml Vial) 5,000 unit SUBCUT Q8H [facility] Last Admin: 07/08/21 00:25 Dose: Not Given Documented by: Ceftriaxone Sodium 1 gm/ (Sodium Chloride) 50 mls @ 100 mls/hr IV Q24H [facility] Last Infusion: 07/07/21 15:43 Dose: Infused Documented by: Azithromycin 500 mg/ Sodium (Chloride) 250 mls @ 125 mls/hr IV Q24H [facility] Last Infusion: 07/08/21 14:36 Dose: Infused Documented by: Levothyroxine Sodium (Levothyroxine Sodium 88 Mcg Tablet) 88 mcg PO DAILY@0600 [facility] Last Admin: 07/08/21 05:46 Dose: Not Given Documented by: Lisinopril (Lisinopril 10 Mg Tablet) 10 mg PO DAILY [facility]; Protocol Last Admin: 07/07/21 08:06 Dose: 10 mg Documented by: Omeprazole (Omeprazole 40 Mg Capsule.Dr) 40 mg PO DAILY@0630 [facility] Last Admin: 07/08/21 05:46 Dose: Not Given Documented by: Ondansetron HCl (Ondansetron Hcl 4 Mg/2 Ml Vial) 4 mg IVPUSH Q8H PRN PRN Reason: Nausea and Vomiting Pharmacy Consult (Consult Rx Perform Med Rec) 1 each MISCELLANE ONCE PRN PRN Reason: Consult order Sodium Chloride (0.9 % Sodium Chloride Flush 3 Ml Syringe) 3 ml IVFLUSH QSHIFT [facility] Last Admin: 07/08/21 08:09 Dose: 3 ml Documented by: Vitamin D (Cholecalciferol (Vitamin D3) 25 Mcg Tablet) 25 mcg PO DAILY [facility] Last Admin: 07/08/21 08:08 Dose: 25 mcg Documented by: Home Medications Medication Instructions Recorded Confirmed Last Taken Type atorvastatin 20 mg tablet 1 tab PO DAILY 07/05/21 07/05/21 Unknown History cholecalciferol (vitamin D3) 25 1 tab PO DAILY 07/05/21 07/05/21 Unknown History mcg (1,000 unit) tablet cyanocobalamin (vitamin B-12) 500 1 tab DAILY 07/05/21 07/05/21 Unknown History mcg tablet diltiazem HCl 180 mg capsule,24 1 cap PO DAILY 07/05/21 07/05/21 Unknown History hr,extended release (Tiadylt ER) fluticasone propionate 50 1 spray INTRANASAL DAILY 07/05/21 07/05/21 Unknown History mcg/actuation nasal spray,suspension levothyroxine 88 mcg tablet 1 tab PO DAILY 07/05/21 07/05/21 Unknown History lisinopril 10 mg tablet 1 tab PO DAILY 07/05/21 07/05/21 Unknown History Physical Exam Vital Signs: Vital Signs: Last Vital Signs Temp 98.4 F 07/08/21 07:41 Pulse 93 07/08/21 07:41 Resp 18 07/08/21 07:41 BP 117/62 07/08/21 07:41 Pulse Ox 97 07/08/21 07:41 BMI result Body Mass Index 19.5 Const: General: cooperative Eyes: General: appearance normal, both eyes and all related structures Resp: Effort & Inspection: normal respiratory effort Cardio: Rate: regular rate Rhythm: regular rhythm GI: Palpation (GI): Soft to palpation and Tenderness to palpation present (GI) (mild ruq discomfort) Skin: General skin exam: no rashes or lesions noted Results Labs CBC & Chem 7: 07/07/21 05:53 07/07/21 05:52 Microbiology Microbiology Results: Microbiology 07/05/21 13:56 Blood - Venous Blood Culture - Preliminary No growth after 48 hours. 07/05/21 13:56 Blood - Venous Blood Culture - Preliminary No growth after 48 hours. Assessment and Plan (1) Cavitary lesion of lung: Status: Acute (2) Pneumonia: Status: Acute There is possible malignancy with cavitary lesions There is no known h/o TB There are possible postobstructive lesions. (3) Liver mass: Status: Acute Biopsy pending liver. May continue Ceftriaxone bronchiectasis (doesnt look like full postobstructive pneumonia). Convert to Ceftin 10 d outpatient. Can stop Zmax Should respiratory isolate patient ?TB until results back.
--- NOTE | 2021-07-08 15:48 | MHC.IC ---
Patient on Airborne precautions for R/O TB. Should remain on airborne precautions per Dr Funes.
[2021-07-08] MEDS: Lidocaine HCl 1 % MPF 5 ML VIAL SUBCUT (16:10)
--- NOTE | 2021-07-08 16:33 | MHC.CM.PN ---
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
[2021-07-08 16:50] VITALS: BP 131/60; PULSE 71; RESP 18; TEMP 36.5; O2SAT 97
[2021-07-08] MEDS: cefTRIAXone sodium 1 GM in 0.9 % Sodium Chloride 50 ML IV (16:53)
[2021-07-08 19:59] VITALS: BP 148/71; PULSE 77; RESP 18; TEMP 37; O2SAT 94
[2021-07-08 23:11] VITALS: BP 118/58; PULSE 78; RESP 14; TEMP 37.4; O2SAT 92
[2021-07-09] VITALS (9 sets, daily range): BP systolic 114–139; BP diastolic 56–68; PULSE 78–97; RESP 14–18; TEMP 35.3–37.6; O2SAT 90–98
[2021-07-09] MEDS: 0.9 % Sodium Chloride Flush 3 ML SYRINGE IVFLUSH ×3 (00:12→17:43)
[2021-07-09 04:06] LABS: ~Hepatitis A Antibody IgM Nonreactive (Nonreactive)
[2021-07-09] MEDS: Levothyroxine Sodium 88 MCG TABLET PO (05:48)
[2021-07-09] MEDS: Omeprazole 40 MG CAPSULE.DR PO (05:48)
[2021-07-09] MEDS: Benzonatate 100 MG CAPSULE PO ×2 (08:50→17:44)
[2021-07-09] MEDS: Atorvastatin Calcium 20 MG TABLET PO (08:50)
[2021-07-09] MEDS: dilTIAZem HCL CD 180 MG CAP.ER.24H PO (08:50)
[2021-07-09] MEDS: Cholecalciferol (Vitamin D3) 25 MCG TABLET PO (08:50)
--- NOTE | 2021-07-09 10:12 | P.PNIM_ITS ---
Subjective Subjective Date of Service: 07/09/21 Interval History: cc: cough, sob interval history: weak Cardiovascular Cardiovascular: Reports no additional cardiovascular complaints Respiratory Respiratory: Reports no additional respiratory complaints Physical Exam Vital Signs: Vital Signs: Last Vital Signs Temp 96.8 F 07/09/21 07:08 Pulse 80 07/09/21 07:08 Resp 18 07/09/21 07:08 BP 126/63 07/09/21 07:08 Pulse Ox 95 07/09/21 07:08 BMI result Body Mass Index 19.5 General: AO X 3, no acute distress Resp: CTA bilateral, no accessory muscles used CVS: S1,S2,RRR GI: soft, non tender, non distended Neuro: motor grossly intact, alert Psych: appropriate affect, appropriate insight Objective Data Active Medications Acetaminophen (Acetaminophen 325 Mg Tablet) 650 mg PO Q6H PRN PRN Reason: Pain, Mild (Pain Scale 1-3) Last Admin: 07/07/21 08:05 Dose: 650 mg Documented by: CORNELIUS Atorvastatin Calcium (Atorvastatin Calcium 20 Mg Tablet) 20 mg PO DAILY [facility] Last Admin: 07/09/21 08:50 Dose: 20 mg Documented by: NILO Benzonatate (Benzonatate 100 Mg Capsule) 100 mg PO TID [facility] Last Admin: 07/09/21 08:50 Dose: 100 mg Documented by: NILO Diltiazem HCl (Diltiazem Hcl Cd 180 Mg Cap.Er.24h) 180 mg PO DAILY [facility]; Protocol Last Admin: 07/09/21 08:50 Dose: 180 mg Documented by: NILO Enoxaparin Sodium (Enoxaparin Sodium 30 Mg/0.3 Ml Syringe) 30 mg SUBCUT Q24H [facility] Fluticasone Propionate (Fluticasone Propionate Nasal 16 Gm [place]) 1 spray NOSTRIL-B DAILY [facility] Last Admin: 07/08/21 10:11 Dose: 1 spray Documented by: DABJuliette Levothyroxine Sodium (Levothyroxine Sodium 88 Mcg Tablet) 88 mcg PO DAILY@0600 [facility] Last Admin: 07/09/21 05:48 Dose: 88 mcg Documented by: SOFI Lisinopril (Lisinopril 10 Mg Tablet) 10 mg PO DAILY [facility]; Protocol Last Admin: 07/07/21 08:06 Dose: 10 mg Documented by: CORNELIUS Omeprazole (Omeprazole 40 Mg Capsule.Dr) 40 mg PO DAILY@0630 [facility] Last Admin: 07/09/21 05:48 Dose: 40 mg Documented by: SOFI Ondansetron HCl (Ondansetron Hcl 4 Mg/2 Ml Vial) 4 mg IVPUSH Q8H PRN PRN Reason: Nausea and Vomiting Pharmacy Consult (Consult Rx Perform Med Rec) 1 each MISCELLANE ONCE PRN PRN Reason: Consult order Sodium Chloride (0.9 % Sodium Chloride Flush 3 Ml Syringe) 3 ml IVFLUSH QSHIFT [facility] Last Admin: 07/09/21 07:17 Dose: 3 ml Documented by: SOFI Vitamin D (Cholecalciferol (Vitamin D3) 25 Mcg Tablet) 25 mcg PO DAILY [facility] Last Admin: 07/09/21 08:50 Dose: 25 mcg Documented by: NILO Labs CBC & Chem 7: 07/07/21 05:53 07/07/21 05:52 Labs: Laboratory Results - last 24 hr 07/05/21 07/06/21 12:30 07:25 Alpha Fetoprotein 2.2 Hepatitis A IgM Ab Nonreactive Assessment and Plan (1) Pneumonia: Status: Acute (2) Liver mass: Status: Acute (3) Cavitary lesion of lung: Status: Acute (4) ELIF (iron deficiency anemia): Status: Acute Plan A 75 years old lady with PMH of hypertension, HLD, hypothyroidism who presents to the hospital complaining of coughing, weakness, right flank pain for the last few days. sob due to cavitary lung lesion with associated liver mass Not septic Negative blood culture continue empiric antibiotics, 10 days total, changed to ceftin s/p liver biopsy, follow up pathology concern for malignancy less likely tb, follow up tspot anemia, acute on chronic iron defeciency, and inflammatory Negative occult blood x1 normal folic, B12, Low TIBC, low iron sat completed 3 days iron Hold Naproxen, Started Omeprazole Hypertension Continue lisinopril and Cardizem Hypothyroid continue synthroid DVT PPX lovenox Quality Stroke Does the patient have a stroke diagnosis?: No VTE Prior VTE?: No VTE Risk Level:: Medical - moderate - high VTE Device Contraindication: Treatment Not Indicated VTE Drug Contraindication: N/A - Med Ordered
[2021-07-09 10:31] LABS: Carbohydrate Antigen 19-9 10 U/mL (<34)
[2021-07-09] MEDS: Enoxaparin Sodium 30 MG/0.3 ML SYRINGE SUBCUT (11:01)
[2021-07-10] MEDS: 0.9 % Sodium Chloride Flush 3 ML SYRINGE IVFLUSH ×4 (01:10→21:25)
[2021-07-10] MEDS: Levothyroxine Sodium 88 MCG TABLET PO (06:19)
[2021-07-10] MEDS: Omeprazole 40 MG CAPSULE.DR PO (06:19)
[2021-07-10] MEDS: dilTIAZem HCL CD 180 MG CAP.ER.24H PO (07:20)
[2021-07-10] MEDS: Benzonatate 100 MG CAPSULE PO ×2 (07:20→21:25)
[2021-07-10] MEDS: Cholecalciferol (Vitamin D3) 25 MCG TABLET PO (07:20)
[2021-07-10] MEDS: Atorvastatin Calcium 20 MG TABLET PO (07:20)
[2021-07-10] MEDS: Fluticasone Propionate Nasal 16 GM SPRAY 1 SPRAY NOSTRIL-B (07:22)
[2021-07-10 07:50] VITALS: BP 121/59; PULSE 81; RESP 18; TEMP 36.3; O2SAT 96
[2021-07-10 08:00] VITALS: BP 137/63; PULSE 90; RESP 18; TEMP 36.2; O2SAT 98
--- NOTE | 2021-07-10 10:04 | HO.PM.IMPN ---
Subjective Subjective Date of Service: 07/10/21 Interval History: cc: cough interval history: no complaints Cardiovascular Cardiovascular: Reports no additional cardiovascular complaints Respiratory Respiratory: Reports no additional respiratory complaints Physical Exam Vital Signs: Vital Signs: Last Vital Signs Temp 97.2 F 07/10/21 08:00 Pulse 90 07/10/21 08:00 Resp 18 07/10/21 08:00 BP 137/63 07/10/21 08:00 Pulse Ox 98 07/10/21 08:00 BMI result Body Mass Index 19.5 General: AO X 3, no acute distress Resp:? CTA bilateral, no accessory muscles used CVS: S1,S2,RRR GI: soft, non tender, non distended Neuro:? motor grossly intact, alert Psych: appropriate affect, appropriate insight? Objective Data Active Medications Acetaminophen (Acetaminophen 325 Mg Tablet) 650 mg PO Q6H PRN PRN Reason: Pain, Mild (Pain Scale 1-3) Last Admin: 07/07/21 08:05 Dose: 650 mg Documented by: CORNELIUS Atorvastatin Calcium (Atorvastatin Calcium 20 Mg Tablet) 20 mg PO DAILY [facility] Last Admin: 07/10/21 07:20 Dose: 20 mg Documented by: JOSSY Benzonatate (Benzonatate 100 Mg Capsule) 100 mg PO TID [facility] Last Admin: 07/10/21 07:20 Dose: 100 mg Documented by: JOSSY Cefuroxime Axetil (Cefuroxime Axetil 500 Mg Tablet) 500 mg PO Q12H [facility] Last Admin: 07/09/21 21:32 Dose: 500 mg Documented by: NEAL Diltiazem HCl (Diltiazem Hcl Cd 180 Mg Cap.Er.24h) 180 mg PO DAILY [facility]; Protocol Last Admin: 07/10/21 07:20 Dose: 180 mg Documented by: JOSSY Enoxaparin Sodium (Enoxaparin Sodium 30 Mg/0.3 Ml Syringe) 30 mg SUBCUT Q24H [facility] Last Admin: 07/09/21 11:01 Dose: 30 mg Documented by: NILO Fluticasone Propionate (Fluticasone Propionate Nasal 16 Gm [place]) 1 spray NOSTRIL-B DAILY [facility] Last Admin: 07/10/21 07:22 Dose: 1 spray Documented by: JOSSY Levothyroxine Sodium (Levothyroxine Sodium 88 Mcg Tablet) 88 mcg PO DAILY@0600 [facility] Last Admin: 07/10/21 06:19 Dose: 88 mcg Documented by: SOFI Lisinopril (Lisinopril 10 Mg Tablet) 10 mg PO DAILY [facility]; Protocol Last Admin: 07/07/21 08:06 Dose: 10 mg Documented by: CORNELIUS Omeprazole (Omeprazole 40 Mg Capsule.Dr) 40 mg PO DAILY@0630 [facility] Last Admin: 07/10/21 06:19 Dose: 40 mg Documented by: SOFI Ondansetron HCl (Ondansetron Hcl 4 Mg/2 Ml Vial) 4 mg IVPUSH Q8H PRN PRN Reason: Nausea and Vomiting Pharmacy Consult (Consult Rx Perform Med Rec) 1 each MISCELLANE ONCE PRN PRN Reason: Consult order Sodium Chloride (0.9 % Sodium Chloride Flush 3 Ml Syringe) 3 ml IVFLUSH QSHIFT [facility] Last Admin: 07/10/21 07:22 Dose: 3 ml Documented by: JOSSY Vitamin D (Cholecalciferol (Vitamin D3) 25 Mcg Tablet) 25 mcg PO DAILY [facility] Last Admin: 07/10/21 07:20 Dose: 25 mcg Documented by: JOSSY Labs CBC & Chem 7: 07/07/21 05:53 07/07/21 05:52 Labs: Laboratory Results - last 24 hr 07/07/21 05:52 CA 19-9 Antigen 10 Assessment and Plan (1) Pneumonia: Status: Acute (2) Liver mass: Status: Acute (3) Cavitary lesion of lung: Status: Acute (4) ELIF (iron deficiency anemia): Status: Acute Plan A 75 years old lady with PMH of hypertension, HLD, hypothyroidism who presents to the hospital complaining of coughing, weakness, right flank pain for the last few days. sob due to cavitary lung lesion with associated liver mass Not septic Negative blood culture continue empiric antibiotics, 10 days total, changed to ceftin s/p liver biopsy, follow up pathology concern for malignancy less likely tb, follow up tspot - pending anemia, acute on chronic iron defeciency, and inflammatory Negative occult blood x1 normal folic, B12, Low TIBC, low iron sat completed 3 days iron Hold Naproxen, Started Omeprazole Hypertension Continue lisinopril and Cardizem Hypothyroid continue synthroid DVT PPX lovenox reason for continued hospitalization: awaiting tspot to dc isolation Quality Stroke Does the patient have a stroke diagnosis?: No VTE Prior VTE?: No VTE Risk Level:: Medical - moderate - high VTE Device Contraindication: Treatment Not Indicated VTE Drug Contraindication: N/A - Med Ordered
[2021-07-10] MEDS: Enoxaparin Sodium 30 MG/0.3 ML SYRINGE SUBCUT (10:16)
[2021-07-10 12:00] VITALS: BP 111/59; PULSE 90; RESP 18; TEMP 36.3; O2SAT 96
[2021-07-10 14:07] LABS: TS Negative Control Passed; TS Panel A 0; TS Panel B 0; TS Positive Control Passed; TSpotTB Negative (Negative)
--- NOTE | 2021-07-10 15:41 | MHC.IC ---
T spot negative. Ok to discontinue Airborne Precautions.
[2021-07-10 15:53] VITALS: BP 113/59; PULSE 85; RESP 17; TEMP 37.3; O2SAT 97
[2021-07-10 20:00] VITALS: BP 101/52; PULSE 76; RESP 17; TEMP 36.5; O2SAT 96
[2021-07-10 23:39] VITALS: BP 97/50; PULSE 77; RESP 18; TEMP 36.6; O2SAT 95
[2021-07-11 03:42] VITALS: BP 100/55; PULSE 65; RESP 18; TEMP 36; O2SAT 95
[2021-07-11] MEDS: Levothyroxine Sodium 88 MCG TABLET PO (05:53)
[2021-07-11] MEDS: Omeprazole 40 MG CAPSULE.DR PO (05:53)
[2021-07-11 07:34] VITALS: BP 115/68; PULSE 88; RESP 15; TEMP 36.3; O2SAT 98
[2021-07-11 08:00] VITALS: BP 115/68; PULSE 88; RESP 15; TEMP 36.3; O2SAT 98
--- NOTE | 2021-07-11 09:01 | PM.DS ---
DS: Providers Provider Date of Service: 07/11/21 Date of admission: 07/05/21 15:40 Primary care physician: Jefferson Sosa MD Consults: 07/05/21 15:45 Consult to Gastroenterology Routine Consulting Provider: Laurence Farah Reason for consultation: Liver mass for your kind eval and rec. 07/08/21 07:36 Consult to Infectious Diseases Routine Consulting Provider: Tayla Funes Reason for consultation: Liver and lung cavitary lesions concerning for poss infx per images. DS: Diagnosis Discharge Diagnosis (1) Pneumonia: Status: Acute (2) Liver mass: Status: Acute (3) Cavitary lesion of lung: Status: Acute (4) ELIF (iron deficiency anemia): Status: Acute DS: Summary Hospital Course Hospital Course: from initial HPI: A 75 years old lady with PMH of hypertension, HLD, hypothyroidism who presents to the hospital complaining of coughing, weakness, right flank pain for the last few days. The patient reported she started to cough and have subjective fevers over the last few days with associated feeling of weakness and lightheadedness.? Yesterday she started to feel pain in her right upper quadrant that is mild to moderate, intermittent, not radiating and other place a not associated with any other symptoms.? She reported decrease in oral intake and feeling nauseated so she could not eat much.? Denies any chest pain, palpitation, change in bowel habit, urinary symptoms or any focal weakness.? She reports losing weight over the last few months and decreased appetite generally. In the emergency she was found to have a drop in hemoglobin to 8.7 from baseline above 10.? Occult stool negative.? CT scan showed 5 cm liver mass causing mass effect to inferior vena cava and gallbladder.? Liver and kidney function within normal.? Chest x-ray showing possible bilateral infiltrate suggestive of pneumonia.? The patient started on antibiotics and admitted for further evaluation and treatment. hospital course: Patient was admitted for shortness of breath due to cavitary lung lesion with associated liver mass. There is concern for possible malignancy with superimposed bacterial pneumonia. Patient was treated with ceftriaxone azithromycin and then on recommendations from Infectious Disease transitioned to cefuroxime. She will complete 10 days total. Her shortness of breath resolved. Due to cavitary lesion, patient was put on airborne isolation to rule out TB, T spot was done which was negative, isolation discontinued. For her liver mass she underwent biopsy, results are still pending and should be followed up outpatient and patient should be referred to appropriate specialty pending results. Patient was also noted to have acute on chronic anemia consistent with both inflammatory and iron deficiency. She received 3 days of iron infusion. NSAID was discontinued and she was started on a PPI. She was continued on her lisinopril and Cardizem for hypertension, and continued on her Synthroid for her hypothyroidism. Patient is feeling better will be discharged home. Time Spent with Patient Time attestation: Total time spent providing and/or coordinating discharge services: Discharge coordination time: Greater than 30 minutes Quality: Stroke Does the patient have a stroke diagnosis?: No Physical Exam Vital Signs: Vital Signs: Last Vital Signs Temp 97.3 F 07/11/21 07:34 Pulse 88 07/11/21 07:34 Resp 15 07/11/21 07:34 BP 115/68 07/11/21 07:34 Pulse Ox 98 07/11/21 07:34 BMI result Body Mass Index 19.5 General: AO X 3, no acute distress Resp: CTA bilateral, no accessory muscles used CVS: S1,S2,RRR GI: soft, non tender, non distended Neuro: motor grossly intact, alert Psych: appropriate affect, appropriate insight DS: Data Data Completed and Pending Pending studies at discharge: Pending at discharge 07/08/21 15:44 Surgical Path [Surgical] [PTH] Routine Labs on day of discharge: Laboratory Results - last 24 hr 07/08/21 08:39 TB Test (T-Spot) Com Negative TB Test Nil Control Passed TB Test Panel A 0 TB Test Panel B 0 TB Test Positive Cntrl Passed Discharge Plan Discharge Patient Disposition: Home, Self-Care Discharge Diagnosis: vacitary lung leasion, liver lesion Referrals: Jefferson Sosa MD [Primary Care Provider] - 1 Week Laurence Farah MD [Physician] - 1 Week Discharge Medications: New omeprazole 40 mg Capsule,Delayed Release(Dr/Ec) 40 mg PO DAILY@0630 Qty: 30 0RF cefuroxime axetil 500 mg Tablet 500 mg PO Q12H Qty: 7 0RF Continued atorvastatin 20 mg tablet 1 tab PO DAILY 0RF diltiazem HCl [Tiadylt ER] 180 mg capsule,extended release 24 hr 1 cap PO DAILY 0RF levothyroxine 88 mcg tablet 1 tab PO DAILY 0RF cyanocobalamin (vitamin B-12) 500 mcg tablet 1 tab DAILY 0RF lisinopril 10 mg tablet 1 tab PO DAILY 0RF fluticasone propionate 50 mcg/actuation spray,suspension 1 spray intranasal DAILY 0RF cholecalciferol (vitamin D3) 25 mcg (1,000 unit) tablet 1 tab PO DAILY 0RF Discontinued naproxen 500 mg tablet 1 tab PO BID 0RF Discharge Orders: Discharge Order (Routine); Ordered 07/11/21 Ordered By: Arturo Guidry Diet: advance to usual diet Activity on Discharge: As tolerated Stand Alone Forms: Patient Portal Discharge page Care Plan Goals: Recovery [facility] Concerns: cavitary lesion of lung and liver mass Plan of Treatment: 3 more days of Ceftin, follow-up biopsy results Assessment: see above
--- NOTE | 2021-07-11 10:01 | MHC.CM.PN ---
PT MEDICALLY CLEARED FOR D/C HOME W/RESUMP OF [employer] H[employer], PT CONT'S TO DECLINE [facility] HER [employer] IS IN [employer], PT WILL CALL A FRIEND TO ARRANGE TRANSPORT.
[2021-07-11] MEDS: Enoxaparin Sodium 30 MG/0.3 ML SYRINGE SUBCUT (11:31)
[2021-07-11] MEDS: Fluticasone Propionate Nasal 16 GM SPRAY 1 SPRAY NOSTRIL-B (11:31)
[2021-07-11] MEDS: dilTIAZem HCL CD 180 MG CAP.ER.24H PO (11:32)
[2021-07-11] MEDS: Atorvastatin Calcium 20 MG TABLET PO (11:32)
[2021-07-11] MEDS: Benzonatate 100 MG CAPSULE PO (11:32)
[2021-07-11] MEDS: Cholecalciferol (Vitamin D3) 25 MCG TABLET PO (11:32)
[2021-07-11] MEDS: 0.9 % Sodium Chloride Flush 3 ML SYRINGE IVFLUSH (11:33)
[2021-07-11 11:45] VITALS: BP 174/60; PULSE 78; RESP 16; TEMP 35.7; O2SAT 96
== END 2021-07-11 12:30 | disposition home or self-care (01) | DRG 179 ==
LOC: HO.ED 14:16 → HO.EDOVER 16:09 → HO.S3 07-06 14:23
PROVIDERS: Internal Medicine Gastroenterology; Physician Assistant; Radiology Diagnostic Radiology; Admitting Provider Student in an Organized Health Care Education/Training Program; Emergency Provider Emergency Medicine Emergency Medical Services; PCP Internal Medicine; Visit Provider Internal Medicine
PROC: 0FB13ZX Excision of Right Lobe Liver, Percutaneous Approach, Diagnostic (ICD-10-PCS; principal; 2021-07-08 14:00)
DX: J85.1 Abscess of lung with pneumonia (principal); E03.9 Hypothyroidism, unspecified; D50.9 Iron deficiency anemia, unspecified; E78.5 Hyperlipidemia, unspecified; I10 Essential (primary) hypertension; R16.0 Hepatomegaly, not elsewhere classified; Z20.822 Contact with and (suspected) exposure to COVID-19; Z79.51 Long term (current) use of inhaled steroids; Z79.890 Hormone replacement therapy; Z79.899 Other long term (current) drug therapy
CPT/HCPCS: 36415; 47000; 71045; 71260; 74177; 74183; 76942; 80048; 80076; 81003; 82105; 82272; 82378; 82607; 82728; 82746; 83540; 83605; 83690; 83735; 83880; 84484; 85025; 85027; 85610; 86301; 86481; 86704; 86706; 86709; 86803; 87040; 87340; 87389; 87635; 88307; 88313; 88341; 88342; 93005; 96361; 96365; 96367; 97161; 99152; 99285; J0456; J0696; J1650; J2916; Q9967

== ENCOUNTER → 2021-07-23 14:13 | Outpatient (BNV) | payer MEDICARE, OTHER, SELFPAY | PROVIDERS: PCP Internal Medicine; Visit Provider Internal Medicine | DX: C78.7 Secondary malignant neoplasm of liver and intrahepatic bile duct (principal); C80.1 Malignant (primary) neoplasm, unspecified | CPT/HCPCS: 99204; 99213; 99214; 99215; G2211 ==

== ENCOUNTER 2021-08-05 11:06 | Outpatient (REF) | payer OTHER, SELFPAY ==
--- NOTE | ~2021-08-05 | PE_ITS ---
EXAMINATION: Fluorine-18 FDG PET/CT Scan CLINICAL INDICATION: Initial treatment management. Carcinoma of liver, initial staging. PROCEDURE: 77 minutes following the intravenous administration of 16.3 mCi of fluorine 18 FDG, images from the base of the skull to the mid thighs were obtained using a combined PET/CT scanner with CT scan based attenuation correction. No oral contrast was administered. No intravenous contrast was administered. Transverse, coronal, sagittal, and volume reconstruction projections were obtained. The patient's blood glucose as determined by a finger stick, was 73 mg/dl immediately prior to injection. Total CT exam dose-length product 165.66 mGy-cm * These CT images were obtained using dose optimization techniques as appropriate, variously including the following: Automated exposure control * Adjustment of mA and/or kV according to patient size (this includes techniques or standardized protocols for targeted exams where dose is matched to indication/reason for exam; i.e. extremities or head) * Use of iterative reconstruction technique COMPARISON: No previous PET/CT scan is available for comparison. CT scan of the chest and MRI of the abdomen, both dated 07/07/[address] scan of the abdomen and pelvis dated 07/05/2021 are available for comparison. FINDINGS: (Slice numbers described in this report are numbered superiorly to inferiorly with slice #1 in the head) NECK AND VISUALIZED HEAD: No foci of abnormal FDG activity are noted. The distribution of FDG activity is physiological. There is no cervical lymphadenopathy. There is a dense subcentimeter calcification in the right lobe of the thyroid gland with no associated abnormal FDG activity. THORAX: There is a posterior pleural-based cavitary lesion in the right lower lobe measuring 4.0 x 2.3 cm in largest transverse dimensions and approximately 2.5 cm cephalocaudad. This is not appear significantly changed in appearance compared with the 07/07/[address] scan. The [place] of this lesion are FDG avid, showing SUVmax 3.8, slice 78/223. A spiculation of this lesion extends to a nodular opacity that abuts the posterior right lower lobe pleura inferior and medial to the cavitary lesion and has similarly intense FDG activity. This density measures and approximately 1.5 cm cephalocaudad and this appears slightly smaller in transverse dimensions that on the 07/07/2021 CT scan when this measured 1.9 x 1.5 cm in largest transverse dimension. There is a cluster of adjacent subcentimeter nodules posteriorly in the left lower lobe, the largest measuring 0.7 x 0.5 cm in transverse dimensions, slice 89/223 and there is weak FDG activity associated with this cluster showing SUVmax 1.8, slice 82/223. These appear similar to the 07/07/2021 CT scan additional small subcentimeter nodules and groundglass opacities are present in the right middle lobe without associated abnormal FDG activity. There are a small number of additional small subcentimeter pleural-based nodules present bilaterally, all much too small to be characterized on the FDG PET images. There is no pleural or pericardial fluid, or pneumothorax. There is no mediastinal, supraclavicular, or axillary lymphadenopathy.. ABDOMEN AND PELVIS: There is an intensely FDG avid CT hypodense mass in the inferior medial aspect of the right lobe of the liver predominantly in liver Couinaud segment 4B but likely extending into segment 5. This shows SUVmax 22.0, slice 130/223. This measures 6.2 x 5.5 cm in largest transverse dimensions and 6.2 cm cephalocaudad. It corresponds well to the mass at this site visualized on the 07/05/2021 CT and 07/07/2021 MRI. The central portion of this is relatively FDG photopenic. There are no additional foci of abnormal FDG activity in the abdomen or pelvis. There is mild FDG activity throughout the gastrointestinal tract with no associated CT abnormalities and likely physiological. There is diverticulosis without evidence of diverticulitis. The hollow viscera are otherwise unremarkable. No additional hepatic lesions are present. The gallbladder is contracted but otherwise appears unremarkable. This was better visualized on the 07/05/[address] scan. The spleen, pancreas, and adrenal glands are unremarkable. A hypodense cyst laterally in the lower pole of the right kidney is noted and is markedly photopenic on the FDG PET images and likely a simple cyst. The kidneys are otherwise unremarkable. There is no retroperitoneal, mesenteric, pelvic or inguinal lymphadenopathy. There is an intense focus of FDG activity medial to the left acetabulum with no definite corresponding CT abnormality present at this site on either the current nondiagnostic CT images or the prior diagnostic 07/05/2021 CT scan and this probably is some retained urinary FDG activity in the distal left ureter. Inferior to this there are bilaterally symmetrical foci of mildly increased activity that are likely in the distal ureter or adjacent loops of bowel, also with no corresponding CT abnormalities. There are no additional foci of suspicious FDG activity present in the abdomen or pelvis. There is no retroperitoneal, mesenteric, inguinal or definite pelvic lymphadenopathy. An intrauterine device is in place with no associated abnormal FDG activity. MUSCULOSKELETAL: There is a small focus of mildly increased FDG activity associated with some osteophytes extending posterolaterally off the proximal shaft of the left femur, likely degenerative or due to an enthesopathy, slice 217/223. No other foci of abnormal FDG activity are present in the osseous structures. There are degenerative changes in the spine but no suspicious sclerotic or lytic lesions are visualized. VASCULAR: Vascular calcifications including some coronary calcifications are noted. PET/PET CT fusion skull to thigh IMPRESSION: 1. An intensely FDG avid hepatic mass is noted as described above most consistent with a malignant lesion and consistent with carcinoma of the liver. Central photopenia is likely due to some central necrosis of this lesion. 2. A cavitary mass in the right lower lobe of the lung is present and the wall of this is FDG avid. This may be a malignant or inflammatory lesion. 3. Multiple additional subcentimeter pulmonary nodules are present, as described above. In the left lower lobe some of these are weakly FDG avid but most of these are too small to be characterized on the FDG PET images. These also may be inflammatory or malignant in etiology. 4. There is a prominent focus of FDG activity in the left side of the pelvis that likely represents some retained activity in the distal left ureter, and no definite corresponding CT abnormality is present at this site. FDG avid external iliac edward chain lymphadenopathy might be responsible for this although this could also represent an FDG avid malignancy in an adjacent loop of bowel. No definite abnormality at this site is present on the recent 07/05/[address] scan. This could be further characterized with intravenous contrast enhanced MRI of the pelvis. This region was not included in the [id number] of the 07/07/2021 MRI of the abdomen. 5. No additional abnormalities strongly suspicious for other metastatic or malignant lesions are noted. 6. Vascular calcifications including coronary.
== END 2021-08-05 11:07 | disposition home or self-care (01) ==
LOC: HO.PET 11:06
PROVIDERS: Visit Provider Internal Medicine
DX: Z13.89 Encounter for screening for other disorder (principal)

== ENCOUNTER 2021-08-15 10:54 | Day surgery (SDC) | payer OTHER, SELFPAY ==
--- NOTE | ~2021-08-15 | US_ITS ---
EXAMINATION: US-GUIDED LIVER BIOPSY CLINICAL INFORMATION: Known poorly differentiated carcinoma with sarcomatoid features. COMPARISON: Ultrasound biopsy 07/08/2021. TECHNIQUE: Following explaining ultrasound-guided right hepatic lobe mass biopsy procedure, benefits and risk, a written consent was obtained. Patient was placed supine and preliminary ultrasound imaging through the right hepatic lobe through the epigastric region was opted. An optimal site was selected and marked on the skin. The marked site was cleaned and draped in the usual sterile manner. 1% lidocaine was injected at the marked site. Through a small skin incision, an 18-gauge guide needle was advanced into the right hepatic mass and a 3-pass coaxial core biopsy was performed. Adequate tissue was obtained in alcohol solution to the cytology department. Complete hemostasis was achieved at the puncture site. Repeat ultrasound imaging was performed. FINDINGS: On preliminary ultrasound imaging, there is a large right hepatic heterogeneous mass measuring 7.3 x 6.1 x 6.4 cm. There is increased vasculature throughout the mass. Approximately 3-pass core biopsy of right hepatic lobe mass was performed. There were no immediate complications. Repeat imaging revealed a little echogenic area likely postbiopsy intratumoral hemorrhage. US/US biopsy liver IMPRESSION: Successful ultrasound-guided right hepatic lobe mass 3-core biopsy performed.
[2021-08-15 12:10] VITALS: BMI 18.1
[2021-08-15 12:15] LABS: MANUAL DIFF FLAG NO
[2021-08-15 12:18] LABS: Basophils Percent Auto 0.3 % (0-2); Eosinophils Absolute Auto 0.1 X10*3/uL (0.0-0.4); Eosinophils Percent Auto 2.6 % (0-4); Hematocrit 26.7 % (37.0-47.0); Hemoglobin 8.3 g/dl (12.0-16.0); Imm Gran Abs Auto 0.01 X10*3/uL (0.00-0.03); Imm Gran Pct Auto 0.3 % (0.0-0.4); Lymphocytes Absolute Auto 0.8 X10*3/uL (1.2-4.9); Lymphocytes Percent Auto 20.2 % (20-40); Mean Corpuscular HGB Conc 31.1 g/dl (31.0-35.0); Mean Corpuscular Hemoglobin 27.5 pg (27.0-33.0); Mean Corpuscular Volume 88.4 fL (80.0-98.0); Mean Platelet Volume 9.5 fL (9.4-12.3); Monocytes Absolute Auto 0.3 X10*3/uL (0.1-1.2); Monocytes Percent Auto 7.1 % (2-11); Neutrophils Absolute Auto 2.7 x10*3/uL (2.0-8.3); Neutrophils Percent Auto 69.5 % (45-73); Platelet Count 307 X10*3/uL (160-400); Red Blood Count 3.02 X10*6/uL (4.20-5.50); Red Cell Distribution Width 14.6 % (11.0-16.0); White Blood Count 3.8 X10*3/uL (4.8-10.8)
[2021-08-15 12:25] LABS: INTERNATIONAL NORM RATIO 1.2 (0.9-1.1); Prothrombin Time 13.5 SEC (9.9-13.0)
[2021-08-15 12:28] LABS: Partial Thromboplastin Time 36.8 SEC (24.1-38.0)
[2021-08-15 12:33] LABS: Anion Gap 14 (12-20); Blood Urea Nitrogen 16 mg/dL (9-16); Carbon Dioxide 28 mmol/L (22-29); Chloride 99 mmol/L (96-108); Creatinine Clr Calc Pharmacy 40.2; Estimated Glomerular Filt Rate > 60; Potassium 4.2 mmol/L (3.3-5.1); Sodium 137 mmol/L (135-145)
[2021-08-15 14:50] VITALS: BP 123/61; PULSE 75; RESP 18; TEMP 37.3; O2SAT 96
[2021-08-15 15:05] VITALS: BP 116/59; PULSE 86; RESP 16; O2SAT 96
[2021-08-15] MEDS: Lidocaine HCl 1 % MPF 5 ML VIAL SUBCUT (15:08)
[2021-08-15 15:20] VITALS: BP 120/69; PULSE 81; RESP 16; O2SAT 96
[2021-08-15 15:35] VITALS: BP 130/73; PULSE 77; RESP 16; O2SAT 96
[2021-08-15 15:49] VITALS: BP 112/75; PULSE 84; RESP 16; TEMP 37.3; O2SAT 96
== END 2021-08-15 16:02 | disposition home or self-care (01) ==
PROVIDERS: Radiology Diagnostic Radiology; PCP Internal Medicine; Visit Provider Radiology Diagnostic Radiology
DX: C22.9 Malignant neoplasm of liver, not specified as primary or secondary (principal); D64.9 Anemia, unspecified; I12.9 Hypertensive chronic kidney disease with stage 1 through stage 4 chronic kidney disease, or unspecified chronic kidney disease; N18.9 Chronic kidney disease, unspecified; Z79.899 Other long term (current) drug therapy
CPT/HCPCS: 36415; 47000; 76942; 80051; 82565; 84520; 85025; 85610; 85730; 88307; 99152; J2250; J3010

== ENCOUNTER 2021-12-23 13:25 | Outpatient (REF) | payer OTHER, SELFPAY ==
--- NOTE | ~2021-12-23 | PE_ITS ---
EXAMINATION: Fluorine-18 FDG PET/CT Scan CLINICAL INDICATION: Subsequent treatment management. Carcinoma the liver status post chemotherapy. PROCEDURE: 57 minutes following the intravenous administration of 16.4 mCi of fluorine 18 FDG, images from the base of the skull to the mid thighs were obtained using a combined PET/CT scanner with CT scan based attenuation correction. No oral contrast was administered. No intravenous contrast was administered. Transverse, coronal, sagittal, and volume reconstruction projections were obtained. The patient's blood glucose as determined by a finger stick, was 100 mg/dl immediately prior to injection. Total CT exam dose-length product 156.78 mGy-cm * These CT images were obtained using dose optimization techniques as appropriate, variously including the following: Automated exposure control * Adjustment of mA and/or kV according to patient size (this includes techniques or standardized protocols for targeted exams where dose is matched to indication/reason for exam; i.e. extremities or head) * Use of iterative reconstruction technique COMPARISON: The previous PET CT scan dated 08/05/2021 is available for comparison. FINDINGS: (Slice numbers described in this report are numbered superiorly to inferiorly with slice #1 in the head) NECK AND VISUALIZED HEAD: No foci of abnormal FDG activity are noted. The distribution of FDG activity is physiological. There is no cervical lymphadenopathy. THORAX: The cavitary lesion abutting the posterolateral pleura of the right lower lobe is again visualized and appears slightly larger on the current study than the prior 08/05/[address] This now measures 4.4 x 3.0 cm in largest transverse dimensions, and approximately 3.5 cm cephalocaudad versus 4.0 x 2.3 x 2.5 cm on 08/05/2021. The periphery of this remains FDG avid, SUVmax 3.8, slice 75/223. There are now much more extensive medial FDG avid opacities than on the prior study but these now extending inferiorly to the medial posterior right lower lobe lung base. The most intense of these is also the most superior focus, showing SUVmax 5.4, slice 71/223 and measuring approximately 1.5 x 1.0 cm in largest transverse dimensions. This is at the subcarinal level abutting the pleura at the level of the T6 vertebral body. This focus and most of the other adjacent medial pleural-based foci are new since 08/05/2021. In addition to these there is an FDG avid anterior and medial pleural-based opacity in the right middle lobe showing SUVmax 5.8, slice 96/223 and measuring 3.3 x 1.1 cm in largest transverse dimensions and approximately 2.5 cm cephalocaudad. This is new since 08/05/2021. There is an additional medial pleural-based proximal peribronchial FDG avid focus in the right middle lobe,, showing SUVmax 4.3, slice 85/223. This is much more intense than minimal FDG activity present at this site on 08/05/2021. There are no FDG avid foci in the left lung or other significant foci in the right lung. There is no pleural or pericardial fluid, or pneumothorax. There is no mediastinal, supraclavicular, or axillary lymphadenopathy. ABDOMEN AND PELVIS: Intensely FDG avid hepatic mass present on the 08/05/2021 PET/CT no longer shows FDG activity more intense than the remainder the liver separate single mild focus along the anterior aspect of the mass which shows SUVmax 3.3, slice 138/223. The remainder of this mass is FDG photopenic and also mildly hypodense on the corresponding CT images. There is some retained FDG activity in the right renal collecting system and ureter. There are no additional suspicious foci of abnormal FDG activity present in the abdomen or pelvis. There is mild FDG activity throughout the gastrointestinal tract without a suspicious focal component. The gallbladder is not well-visualized. The spleen appears unremarkable. A stable hypodense cyst laterally in the lower pole of the right kidney is noted, unchanged from 08/05/2021. The kidneys are otherwise unremarkable. The adrenal glands and pancreas are unremarkable. There is no retroperitoneal, mesenteric, pelvic or inguinal lymphadenopathy. There is diverticulosis without evidence of diverticulitis. The pelvic organs are unremarkable. MUSCULOSKELETAL: There are no foci of abnormal FDG activity in the osseous structures. There are degenerative in the spine but no suspicious sclerotic or lytic lesions are present. VASCULAR: Vascular calcifications including coronary are noted. PET/PET CT fusion skull to thigh IMPRESSION: 1. There has been a marked and almost complete metabolic response to therapy of the previously intensely FDG avid liver mass. There is a small focus of residual mild FDG activity along the anterior margin of this mass which likely represents some residual metabolically active malignancy. 2. A peripherally FDG avid right lower lobe cavitary pulmonary lesion has slightly enlarged in size and FDG avidity. In addition, multiple new FDG avid opacities are present medially in the right lower lobe and anteromedially in the right middle lobe, as described above. Although these could be due to progressive inflammatory disease, the intensity of FDG activity is most consistent with progressive malignant metastatic disease. Sampling may be necessary to distinguish inflammatory from malignant disease. 3. Activity along the right ureter likely represents some retained excreted FDG activity within the ureter, but neoplasm tracking along the course of the ureter cannot be entirely excluded. 4. No additional abnormalities suspicious for other metastatic or malignant lesions are present. 5. Vascular calcifications including coronary.
== END 2021-12-23 13:26 | disposition home or self-care (01) ==
LOC: HO.PET 13:25
PROVIDERS: Visit Provider Internal Medicine
DX: Z13.89 Encounter for screening for other disorder (principal)

== ENCOUNTER 2022-01-23 08:58 | Day surgery (SDC) | payer OTHER, SELFPAY ==
--- NOTE | 2022-01-20 11:07 | MHC.HEMONCMA ---
spoke with Daughter Sasha [phone], who takes care of mom, Mom has dementia and doesnt remember anything so call daughter, house is being fumagated with powder to kill bugs, per Dr. Mario she needs to remain out of house for 48 hrs after application. Daughter understands,.
[2022-01-23] VITALS (13 sets, daily range): BP systolic 113–136; BP diastolic 32–75; PULSE 51–73; RESP 16–18; TEMP 36.1–36.6; O2SAT 96–97; BMI 16.7
--- NOTE | ~2022-01-23 | XR_ITS ---
EXAMINATION: XR CHEST CLINICAL INFORMATION: s/p right lung biopsy with pneumothorax COMPARISON: CT chest biopsy 01/23/2022. Chest x-ray 07/05/2021. PET/CT study 12/23/2021 TECHNIQUE: Frontal portable view of the chest was obtained. 2:56 PM. FINDINGS: There is a small volume Right-sided pneumothorax post lung biopsy. Volume similar to the images performed during the biopsy. Cavitary lesion in the right lung redemonstrated. XR/XR chest 1V IMPRESSION: Small volume right-sided pneumothorax unchanged since prior CT imaging during the lung biopsy.
--- NOTE | ~2022-01-23 | CT_ITS ---
PROCEDURE: CT GUIDED BIOPSY, LUNG CLINICAL INFORMATION: Right lung cavitary mass which is PET/CT positive. COMPARISON: 12/23/2021 and 08/05/2021. TECHNIQUE: CT fluoroscopic-guided right lung biopsy. This CT examination was performed using dose optimization techniques as appropriate, variously including the following: *Automated exposure control *Adjustment of mA and/or kV according to patient size (this includes techniques or standardized protocols for targeted exams where dose is matched to indication/reason for exam; i.e. extremities or head) *Use of iterative reconstruction technique DLP: 168 mGy-cm FINDINGS: Informed consent was obtained from the patient's son as well as discussing the procedure with the patient. Prior to the procedure, during this process, the procedure and potential alternatives were explained, along with the intended outcome and benefits. The risks of the procedure, as well as the risk of not doing the procedure, were discussed. The patient and her son were given the opportunity to ask questions regarding the procedure and appeared competent to make medical decisions. A signed consent form which documents this discussion was placed in the medical record. With patient lying prone and using sterile technique and CT fluoroscopic guidance a 17-gauge guiding needle was placed from a posterior approach into the thickened soft tissue adjacent to the cystic portion. This soft tissue region was PET positive. Five 18-gauge core biopsies were then obtained. During the procedure patient developed a small right-sided pneumothorax but which did not progress during remainder of the biopsies. Follow-up chest x-rays will be performed. CT/CT biopsy lung RT IMPRESSION: CT fluoroscopic guided core biopsy right lung mass.
--- NOTE | ~2022-01-23 | XR_ITS ---
EXAMINATION: XR CHEST CLINICAL INFORMATION: Evaluate for pneumothorax COMPARISON: Film same day earlier TECHNIQUE: Frontal view of the chest was obtained. FINDINGS: Continued small pneumothorax on the right. This is not significantly changed from previous exam. Once again abnormality in the right midlung is noted. Left lung is grossly clear. The cardiac silhouette is comparable XR/XR chest 1V IMPRESSION: Small pneumothorax on the right described earlier is unchanged
[2022-01-23 09:22] LABS: MANUAL DIFF FLAG NO
[2022-01-23 09:25] LABS: Basophils Percent Auto 0.5 % (0-2); Eosinophils Absolute Auto 0.1 X10*3/uL (0.0-0.4); Eosinophils Percent Auto 1.4 % (0-4); Hematocrit 30.8 % (37.0-47.0); Hemoglobin 9.8 g/dl (12.0-16.0); Imm Gran Abs Auto 0.01 X10*3/uL (0.00-0.03); Imm Gran Pct Auto 0.2 % (0.0-0.4); Lymphocytes Absolute Auto 0.8 X10*3/uL (1.2-4.9); Lymphocytes Percent Auto 17.7 % (20-40); Mean Corpuscular HGB Conc 31.8 g/dl (31.0-35.0); Mean Corpuscular Hemoglobin 29.8 pg (27.0-33.0); Mean Corpuscular Volume 93.6 fL (80.0-98.0); Mean Platelet Volume 9.2 fL (9.4-12.3); Monocytes Absolute Auto 0.3 X10*3/uL (0.1-1.2); Neutrophils Absolute Auto 3.2 x10*3/uL (2.0-8.3); Neutrophils Percent Auto 73.2 % (45-73); Platelet Count 213 X10*3/uL (160-400); Red Blood Count 3.29 X10*6/uL (4.20-5.50); Red Cell Distribution Width 14.1 % (11.0-16.0); White Blood Count 4.4 X10*3/uL (4.8-10.8)
[2022-01-23 09:31] LABS: INTERNATIONAL NORM RATIO 1.1 (0.9-1.1); Prothrombin Time 12.3 SEC (10.0-13.1)
[2022-01-23 09:34] LABS: Partial Thromboplastin Time 33.7 SEC (26.0-36.4)
== END 2022-01-23 17:45 | disposition home or self-care (01) ==
PROVIDERS: Radiology Diagnostic Radiology; PCP Internal Medicine; Visit Provider Internal Medicine
DX: J98.4 Other disorders of lung (principal); C22.9 Malignant neoplasm of liver, not specified as primary or secondary; I12.9 Hypertensive chronic kidney disease with stage 1 through stage 4 chronic kidney disease, or unspecified chronic kidney disease; N18.9 Chronic kidney disease, unspecified; J30.9 Allergic rhinitis, unspecified; D64.9 Anemia, unspecified; E55.9 Vitamin D deficiency, unspecified; R73.9 Hyperglycemia, unspecified; F32.A Depression, unspecified; Z79.899 Other long term (current) drug therapy
CPT/HCPCS: 32408; 36415; 71045; 85025; 85610; 85730; 87071; 87073; 87102; 87116; 87205; 88305; 88312; 88333; 88344; J2250; J3010

== ENCOUNTER 2022-02-11 10:21 | Outpatient (REF) | payer OTHER, SELFPAY ==
--- NOTE | ~2022-02-11 | XR_ITS ---
EXAMINATION: XR CHEST CLINICAL INFORMATION: Lung mass. Coughing up blood COMPARISON: Chest x-ray the 2021 TECHNIQUE: Frontal view of the chest was obtained. FINDINGS: Cardiac silhouette is normal in size. The lungs are adequately aerated. Cavitary lesion of the right midlung is again noted. There is no lobar consolidation. No pleural effusion or pneumothorax. XR/XR chest 1V IMPRESSION: Right cavitary lung mass reidentified.
== END 2022-02-11 10:22 | disposition home or self-care (01) ==
LOC: HO.XRAY 10:21
PROVIDERS: Visit Provider Internal Medicine
DX: R04.2 Hemoptysis (principal); R91.8 Other nonspecific abnormal finding of lung field
CPT/HCPCS: 71045

== ENCOUNTER → 2022-02-12 09:41 | Outpatient (BNVA) | payer OTHER, SELFPAY | PROVIDERS: PCP Internal Medicine; Visit Provider Hospitalist | DX: J18.9 Pneumonia, unspecified organism (principal); J98.4 Other disorders of lung; R59.1 Generalized enlarged lymph nodes; R04.2 Hemoptysis | CPT/HCPCS: 99202 ==

== ENCOUNTER 2022-02-19 06:48 | Day surgery (SDC) | payer OTHER, SELFPAY ==
--- NOTE | 2022-02-18 10:58 | P.CONAN_ITS ---
Documented by User: Tanya Oneil NP 02/18/22 11:00 HPI - Anesthesia Eval Consult details Narrative: 76yo F for Endoscopic Bronchial Ultrasound, Bronchoscopy Fiberoptic PMFSH Active Problems Active Problems: All Active Problems (Updated 02/12/22 @ 23:04 by Yovanny Schuler MD) Hemoptysis (Acute) Lymphadenopathy (Acute) Metastatic non-small cell lung cancer (Acute) Anemia (Acute) ELIF (iron deficiency anemia) (Acute) Pneumonia (Acute) Cavitary lesion of lung (Acute) Carcinoma of liver (Chronic ~2021) Past Medical History Medical History Allergic rhinitis Anemia Chronic renal failure Depressive disorder Elevated blood sugar Hemoptysis HTN (hypertension) Injury of right knee Lymphadenopathy Obesity Osteoarthritis Renal cyst Vitamin deficiency, unspecified Family History Family History Father Cancer Mother Cancer Paternal Grandmother Cancer Surgical History Surgical History History of section History of esophagogastroduodenoscopy (EGD) (~2017) History of liver biopsy (~2021) Social History Social History Household Members: None Housing: Apartment Are you a primary long term care phlebotomist to a significant other at home: No Do you presently have visiting nurse or other home services: 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) Patient Tobacco Use Status: Never used Tobacco Use of substances other than those prescribed or required for medical reasons: No Are you DNR?: No Advance Directives: No Advance Directives Information Provided: Yes service: No Current occupational status: retired and disabled Meds Allergies Allergy/AdvReac Type Severity Reaction Status Date / Time No Known Allergies Allergy Verified 02/19/22 08:02 [No Known Allergies*] Home Medications Medication Instructions Recorded Confirmed Last Taken Type cholecalciferol (vitamin D3) 25 1 tab PO DAILY 07/05/21 02/19/22 Unknown History mcg (1,000 unit) tablet cyanocobalamin (vitamin B-12) 500 1 tab DAILY 07/05/21 02/19/22 Unknown History mcg tablet cetirizine 10 mg tablet 1 tab PO DAILY 07/23/21 02/19/22 Unknown History donepezil 5 mg tablet 5 mg PO DAILY 02/12/22 02/19/22 Unknown History omeprazole 40 mg capsule,delayed 40 mg PO DAILY 02/12/22 02/19/22 Unknown History release triamcinolone acetonide 0.1 % 1 appl topical BID-TID BITES 02/12/22 02/19/22 Unknown History topical cream Exam Exam Date and Time: February 18, 2022 1058 Pertinent Lab Results Pertinent Lab Results: Laboratory Tests 02/11/22 02/11/22 09:44 09:44 WBC 4.0 L Hgb 10.5 L Hct 32.7 L Plt Count 220 Sodium 139 Potassium 4.1 Chloride 102 Carbon Dioxide 26 BUN 27 H Creatinine 1.03 Narrative Narrative: EKG 06/2021 Vent. Rate : 081 BPM ? ? Atrial Rate : 081 BPM ?? P-R Int : 128 ms? QRS Dur : 130 ms ? ? QT Int : 366 ms ? ? ? P-R-T Axes : 077 -11 026 degrees ?? QTc Int : 425 ms ? Normal sinus rhythm Incomplete right bundle branch block Minimal voltage criteria for LVH, may be normal variant ( Polo product ) Abnormal ECG No previous ECGs available Assessment and Plan Assessment Anesthesia Assessment: Chart Reviewed Documented by User: Han Lora MD 02/19/22 10:01 [facility] Past Medical History Medical History Allergic rhinitis Anemia Chronic renal failure Depressive disorder Elevated blood sugar Hemoptysis HTN (hypertension) Injury of right knee Lymphadenopathy Obesity Osteoarthritis Renal cyst Vitamin deficiency, unspecified Family History Family History Father Cancer Mother Cancer Paternal Grandmother Cancer Family history of problems with anesthesia: No Surgical History Surgical History History of section History of esophagogastroduodenoscopy (EGD) (~2017) History of liver biopsy (~2021) History of Problems with Anesthesia: No Social History Social History Household Members: None Housing: Apartment Are you a primary long term care phlebotomist to a significant other at home: No Do you presently have visiting nurse or 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 home services: 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) Patient Tobacco Use Status: Never used Tobacco Use of substances other than those prescribed or required for medical reasons: No Are you DNR?: No Advance Directives: No Advance Directives Information Provided: Yes service: No Current occupational status: retired and disabled Meds Allergies Allergy/AdvReac Type Severity Reaction Status Date / Time No Known Allergies Allergy Verified 02/19/22 08:02 [No Known Allergies*] Home Medications Medication Instructions Recorded Confirmed Last Taken Type cholecalciferol (vitamin D3) 25 1 tab PO DAILY 07/05/21 02/19/22 Unknown History mcg (1,000 unit) tablet cyanocobalamin (vitamin B-12) 500 1 tab DAILY 07/05/21 02/19/22 Unknown History mcg tablet cetirizine 10 mg tablet 1 tab PO DAILY 07/23/21 02/19/22 Unknown History donepezil 5 mg tablet 5 mg PO DAILY 02/12/22 02/19/22 Unknown History omeprazole 40 mg capsule,delayed 40 mg PO DAILY 02/12/22 02/19/22 Unknown History release triamcinolone acetonide 0.1 % 1 appl topical BID-TID BITES 02/12/22 02/19/22 Unknown History topical cream Exam Airway Mallampati Class: I TM Dist: >3cm Neck ROM: Full Denture: Lower Partial: Upper Loose/Missing/Broken Teeth: Yes (Remaining upper teeth all decayed and loose) Assessment and Plan Final Anesthetic Review Family History of Problems with Anesthesia: No History of Problems with Anesthesia: No NPO: Yes ASA Class: III Final Preanesthetic Review: No Changes in Pt Med Stat, Meds/Allgs Chart Reviewed, Consent Obtained/Reviewed and Anes Risks/Benef Reviewed Patient Risk: Intermediate (Risk of bleeding/dental injury) Procedure Risk: Low Anesthetic Plan Anesthetic Plan: GA Disposition: Standard PACU
[2022-02-19] VITALS (8 sets, daily range): BP systolic 108–125; BP diastolic 57–70; PULSE 58–68; RESP 16–22; TEMP 36.1–36.6; O2SAT 96–100; BMI 17.6
--- NOTE | ~2022-02-19 | XR_ITS ---
EXAMINATION: XR CHEST CLINICAL INFORMATION: Status post bronchoscopy COMPARISON: February 11, 2022 and January 23, 2022 TECHNIQUE: AP portable view of the chest was obtained. FINDINGS: The right lung cavitary lesion is seen to have some overlying density with question of a small air-fluid level. No pneumothorax identified. No significant pleural effusion is seen. Heart normal size. No evidence of pulmonary edema. XR/XR chest 1V IMPRESSION: Right lung cavitary lesion appears to have air-fluid level within it with some adjacent increased density likely related to atelectasis.
[2022-02-19] MEDS: Lactated Ringers 1,000 ML 100 ML IVCONT (08:15)
--- NOTE | 2022-02-19 09:34 | MHC.SHP ---
Pre-Procedural Eval Section A Date of Service: 02/19/22 The patient is an INPATIENT: No Changes since office visit: No Cold of Flu in the past 2 weeks, No New Medical Problems, No Changes in Medication and No Patient answered all questions The History & Physical has been completed within 30 days and I have reviewed it.: Yes Section B Chief Complaint: Other disorders of lung Allergies: Allergies Allergy/AdvReac Type Severity Reaction Status Date / Time No Known Allergies Allergy Verified 02/19/22 08:02 [No Known Allergies*] Plan I have reviewed the history and physical and performed a pertinent physical examination on my patient. No changes have occurred unless specified.
--- NOTE | 2022-02-19 12:26 | P.BOP_ITS ---
Brief Operative Note Date of Service: 02/19/22 Pre-op diagnosis: cavitary mass Post-op diagnosis: same Procedure: EBUS and bronchoscpy Implants: Surgeon: Yovanny Schuler MD Anesthesia: GETA Was an Ground Water Contractor used for this Procedure?: No Estimated blood loss (mL): 1 Pathology: other (RLL transbronchial biopsy, FNA stataion 7 and 11R) Condition: stable Disposition: same day
== END 2022-02-19 13:34 | disposition home or self-care (01) ==
PROVIDERS: PCP Internal Medicine; Visit Provider Hospitalist
PROC: (CPT 31628; principal; 2022-02-19 09:10)
PROC: 0BJ08ZZ Inspection of Tracheobronchial Tree, Via Natural or Artificial Opening Endoscopic (ICD-10-PCS; CPT 31622; 2022-02-19 09:10)
DX: J98.4 Other disorders of lung (principal); R59.1 Generalized enlarged lymph nodes; R91.8 Other nonspecific abnormal finding of lung field; R04.2 Hemoptysis; J30.9 Allergic rhinitis, unspecified; F32.A Depression, unspecified; N18.9 Chronic kidney disease, unspecified; I12.9 Hypertensive chronic kidney disease with stage 1 through stage 4 chronic kidney disease, or unspecified chronic kidney disease; R73.9 Hyperglycemia, unspecified; C22.7 Other specified carcinomas of liver; D64.9 Anemia, unspecified; E55.9 Vitamin D deficiency, unspecified
CPT/HCPCS: 31628; 31652; 71045; 87070; 87073; 87102; 87107; 87116; 87205; 88172; 88173; 88177; 88305; J0171; J2405; J3010

== ENCOUNTER → 2022-03-13 14:15 | Outpatient (BNVA) | payer OTHER, SELFPAY | PROVIDERS: PCP Internal Medicine; Visit Provider Hospitalist | DX: J18.9 Pneumonia, unspecified organism (principal); J98.4 Other disorders of lung; R59.1 Generalized enlarged lymph nodes; R04.2 Hemoptysis | CPT/HCPCS: 99212 ==

== ENCOUNTER → 2022-03-20 09:58 | Outpatient (BNVA) | payer OTHER, SELFPAY | PROVIDERS: PCP Internal Medicine; Visit Provider Internal Medicine | DX: A31.0 Pulmonary mycobacterial infection (principal) | CPT/HCPCS: 99202; 99212 ==

== ENCOUNTER 2022-04-27 09:17 | Outpatient (REF) | payer OTHER, SELFPAY ==
--- NOTE | 2022-04-27 09:24 | ECG_ITS ---
Test Reason : PULM. MYCROBACTERIAL Blood Pressure : / mmHG Vent. Rate : 062 BPM Atrial Rate : 062 BPM P-R Int : 124 ms QRS Dur : 094 ms QT Int : 390 ms P-R-T Axes : 067 -21 016 degrees QTc Int : 395 ms Normal sinus rhythm Incomplete right bundle branch block Borderline ECG When compared with ECG of 05-JUL-2021 12:33, No significant change was found Referred By: Yovanny Schuler Electronically Signed By:Cayden Maya
[2022-04-27 09:39] LABS: MANUAL DIFF FLAG NO
[2022-04-27 10:31] LABS: Basophils Percent Auto 0.7 % (0-2); Eosinophils Absolute Auto 0.1 X10*3/uL (0.0-0.4); Eosinophils Percent Auto 3.4 % (0-4); Hematocrit 33.9 % (37.0-47.0); Hemoglobin 10.6 g/dl (12.0-16.0); Imm Gran Abs Auto 0.01 X10*3/uL (0.00-0.03); Imm Gran Pct Auto 0.3 % (0.0-0.4); Lymphocytes Absolute Auto 0.7 X10*3/uL (1.2-4.9); Lymphocytes Percent Auto 24.8 % (20-40); Mean Corpuscular HGB Conc 31.3 g/dl (31.0-35.0); Mean Corpuscular Hemoglobin 30.5 pg (27.0-33.0); Mean Corpuscular Volume 97.7 fL (80.0-98.0); Mean Platelet Volume 10.1 fL (9.4-12.3); Monocytes Absolute Auto 0.2 X10*3/uL (0.1-1.2); Monocytes Percent Auto 6.8 % (2-11); Neutrophils Absolute Auto 1.9 x10*3/uL (2.0-8.3); Platelet Count 193 X10*3/uL (160-400); Red Blood Count 3.47 X10*6/uL (4.20-5.50); Red Cell Distribution Width 13.5 % (11.0-16.0); White Blood Count 2.9 X10*3/uL (4.8-10.8)
[2022-04-27 10:55] LABS: Alanine Aminotransferase 11 U/L (0-31); Albumin Level 3.9 g/dL (3.5-5.0); Anion Gap 11 (12-20); Aspartate Amino Transferase 15 U/L (5-31); Bilirubin Direct < 0.2 mg/dL (0.0-0.5); Bilirubin Total 0.3 mg/dL (0.0-1.0); Blood Urea Nitrogen 27 mg/dL (9-16); Calcium 9.4 mg/dL (8.4-10.2); Carbon Dioxide 30 mmol/L (22-29); Chloride 101 mmol/L (96-108); Estimated Glomerular Filt Rate 52; Glucose Random 92 mg/dL (60-115); Potassium 4.2 mmol/L (3.3-5.1); Sodium 138 mmol/L (135-145); Total Protein 7.2 g/dL (6.5-8.0)
[2022-04-27 11:26] LABS: Alkaline Phosphatase 88 U/L (39-117)
[2022-04-27 11:33] LABS: Erythrocyte Sedimentation Rate 22 MM/HR (0-20)
== END 2022-04-27 09:18 | disposition home or self-care (01) ==
LOC: HO.LAB 09:17
PROVIDERS: Absent Provider Internal Medicine; PCP Internal Medicine; Visit Provider Hospitalist
DX: A31.0 Pulmonary mycobacterial infection (principal); A31.9 Mycobacterial infection, unspecified; B49 Unspecified mycosis
CPT/HCPCS: 36415; 80048; 80076; 85025; 85652; 93005

== ENCOUNTER → 2022-05-20 10:53 | Outpatient (BNVA) | payer OTHER, SELFPAY | PROVIDERS: PCP Internal Medicine; Visit Provider Internal Medicine | DX: A31.0 Pulmonary mycobacterial infection (principal); B49 Unspecified mycosis; J02.9 Acute pharyngitis, unspecified | CPT/HCPCS: 99212 ==

== ENCOUNTER → 2022-06-08 09:09 | Outpatient (BNVA) | payer OTHER, SELFPAY | PROVIDERS: PCP Internal Medicine; Visit Provider Hospitalist | DX: J18.9 Pneumonia, unspecified organism (principal); J98.4 Other disorders of lung; R59.1 Generalized enlarged lymph nodes; R04.2 Hemoptysis; Z79.899 Other long term (current) drug therapy | CPT/HCPCS: 99212 ==

== ENCOUNTER 2022-06-10 10:11 | Outpatient (REF) | payer OTHER, SELFPAY ==
--- NOTE | ~2022-06-10 | XR_ITS ---
EXAMINATION: XR CHEST CLINICAL INFORMATION: Mycobacterial infection. COMPARISON: Chest x-ray 02/19/2022 TECHNIQUE: 2 views of the chest were obtained. FINDINGS: The lungs are well-expanded and clear of acute pneumonic process. A thin-walled cyst/cavity in right midlung measuring 3.3 x 2.7 cm. Opacity seen adjacent to the cyst has resolved.. Heart size and pulmonary vascularity is normal. No gross bony abnormality seen. XR/XR chest 2V IMPRESSION: 1. No acute cardiopulmonary process seen. 2. Thin-walled cyst/cavity right midlung. It appears stable compared to 02/19/2022. The opacity adjacent to this cyst has resolved.
--- NOTE | 2022-06-10 10:17 | ECG_ITS ---
Test Reason : COPD Blood Pressure : / mmHG Vent. Rate : 064 BPM Atrial Rate : 064 BPM P-R Int : 128 ms QRS Dur : 100 ms QT Int : 390 ms P-R-T Axes : 076 -20 032 degrees QTc Int : 402 ms Normal sinus rhythm Incomplete right bundle branch block Septal infarct , age undetermined Abnormal ECG When compared with ECG of 27-APR-2022 09:28, No significant change was found Referred By: Yovanny Schuler Electronically Signed By:Cayden Maya
== END 2022-06-10 10:12 | disposition home or self-care (01) ==
LOC: HO.XRAY 10:11
PROVIDERS: PCP Internal Medicine; Visit Provider Hospitalist
DX: A31.9 Mycobacterial infection, unspecified (principal); J44.9 Chronic obstructive pulmonary disease, unspecified
CPT/HCPCS: 71046; 93005

== ENCOUNTER → 2022-08-17 09:50 | Outpatient (BNVA) | payer OTHER, SELFPAY | PROVIDERS: PCP Internal Medicine; Visit Provider Hospitalist | DX: J98.4 Other disorders of lung (principal); R59.1 Generalized enlarged lymph nodes; A31.9 Mycobacterial infection, unspecified | CPT/HCPCS: 99212 ==

== ENCOUNTER 2022-08-28 09:47 | Outpatient (REF) | payer OTHER, SELFPAY | END 2022-08-28 09:48 | disposition home or self-care (01) | LOC: HO.LAB 09:47 | PROVIDERS: PCP Internal Medicine; Visit Provider Internal Medicine | DX: Z13.89 Encounter for screening for other disorder (principal) ==

== ENCOUNTER 2022-10-06 11:23 | Outpatient (REF) | payer OTHER, SELFPAY ==
--- NOTE | ~2022-10-06 | PE_ITS ---
EXAMINATION: Fluorine-18 FDG PET/CT Scan CLINICAL INDICATION: Subsequent treatment management. Liver cancer. Status post treatment. For follow-up. PROCEDURE: 65 minutes following the intravenous administration of 18.2 mCi of fluorine 18 FDG, images from the base of the skull to the mid thighs were obtained using a combined PET/CT scanner with CT scan based attenuation correction. No intravenous contrast was administered. Transverse, coronal, sagittal, and volume reconstruction projections were obtained. The patient's blood glucose as determined by a finger stick, was 92 mg/dl immediately prior to injection. The radiotracer was injected intravenously through right hand superficial vein, without any complications. Total CT exam dose-length product 202.95 mGy-cm * These CT images were obtained using dose optimization techniques as appropriate, variously including the following: Automated exposure control * Adjustment of mA and/or kV according to patient size (this includes techniques or standardized protocols for targeted exams where dose is matched to indication/reason for exam; i.e. extremities or head) * Use of iterative reconstruction technique COMPARISON: Prior PET CT study done on 12/23/2021 and 08/05/[address]-guided right lung cavitary mass biopsy done on 01/23/2022. FINDINGS: NECK AND VISUALIZED HEAD: Linear asymmetric increased FDG avidity is noted within the left-sided neck along the expected location of the left sternocleidomastoid muscle, likely physiologic. There are no FDG avid pathologically enlarged, morphologically abnormal cervical lymphadenopathy identified, unchanged. THORAX: The index thin walled cavitary lesion at right lower lobe of the lung associated with small air-fluid level currently measures approximately 2.9 x 2.5 cm, previously 4.4 x 3.5 cm on the study dated 12/23/2021. Previously documented FDG avidity along the wall of the cavitary lesion shows interval resolution. Please note that this had been biopsied on 01/23/2022 showing benign pathology (please refer to the histology report for further full details). Previously documented multifocal FDG avid airspace opacities seen along the paramediastinal region of right lower and to a lesser extent right middle lobe show minimal residual airspace disease with minimal FDG avidity. The contralateral left lung do not show any FDG avid lesion, unchanged. No FDG avid mediastinal, hilar, axillary or internal mammary lymphadenopathy or pleural or pericardial effusion. ABDOMEN AND PELVIS: Previously documented multifocal linear FDG avidity along the anterior aspect of the mass with SUV max of 3.3 cm interval resolution since the most recent prior study dated 12/23/2021. Residual of photopenic non-FDG avid partially calcific hypodense circumscribed mass is identified at the site of the previously documented FDG avid tumor as was documented on the baseline study dated 08/05/2021. This measures approximately 4.2 x 2.1 cm (260/698), previously 5.9 x 3.0 cm on the study dated 12/23/2021. Mild FDG avidity involving the stomach with SUV max of 4.6 (130/267), may represent inflammatory changes/gastritis. Please correlate clinically. No FDG avid disease within the spleen or adrenal glands. The gallbladder, biliary tree and the pancreas appears unremarkable. Relatively focal FDG avidity is present within the right-sided colon near the cecum and also within the left-sided descending colon with SUV max of 6.3 on the right and 4.6 on the left (164/267), for which direct visualization/colonoscopy would be indicated if not recently performed for further clarification. MUSCULOSKELETAL: No suspicious focal lesion. VASCULAR: Calcific atherosclerotic disease of the aorta and its branches without evidence of aneurysm formation. Coronary artery calcifications are also present. SUV max OF MEDIASTINAL BLOOD POOL: 2.1 SUV max OF LIVER: 2.2 PET/PET CT fusion skull to thigh IMPRESSION: 1. Interval resolution of previously documented mild focal FDG avidity along the anterior aspect of the right upper quadrant abdominal/liver mass since the most recent prior study dated 12/23/2021. 2. The mass has decreased in size, currently measures 4.2 x 2.1 cm at its maximum transverse by anteroposterior dimension, previously 5.9 x 3.0 cm on the study dated 12/23/2021 and is not metabolically active on this study 3. Mild FDG avidity involving the stomach with SUV max of 4.6, likely represent inflammatory changes/gastritis. Please correlate clinically. Incidental note is also made of focal FDG avidity at both the right and left-sided colon, for which direct visualization/colonoscopy would be indicated for further clarification, if not recently performed 4. The indexed thin walled benign cavitary lesion seen at right lower lobe of the lung associated with small air-fluid level also appears smaller, currently measures 2.9 x 2.5 cm, previously 4.4 x 3.5 cm. Previously documented FDG avidity along the margin/wall of the cavitary lesion shows interval resolution the most recent prior study dated 12/23/2021. 5. Previously documented multifocal FDG avid airspace opacities seen along the paramediastinal region of the right hemithoracic lung field predominantly involving the right lower and right middle lobe show minimal residual airspace disease with minimal FDG avidity, consistent with interval improvement without resolution.
== END 2022-10-06 11:24 | disposition home or self-care (01) ==
LOC: HO.PET 11:23
PROVIDERS: PCP Internal Medicine; Visit Provider Internal Medicine
DX: Z13.89 Encounter for screening for other disorder (principal)

== ENCOUNTER 2022-12-07 09:37 | Outpatient (AMB) | payer OTHER, SELFPAY ==
--- NOTE | 2022-12-07 10:15 | MHC.OFFVIS ---
Intake Vital Signs 12/07/22 10:16 Height 5 ft 2 in Weight 102 lb 5 oz BMI 18.7 BP 124/60 Blood Pressure Location Rt brachial Position Sitting Pulse 60 Pulse Source Pulse Oximeter Pulse Oximetry (%) 98 Oxygen Delivery Method Room Air Intake Visit Reasons: COPD [employer] Doc[employer] Required: No Allergies No Known Allergies [No Known Allergies*] Allergy (Verified 12/07/22 10:19) HPI HPI Comments History of Present Illness Details The patient is a 77 year woman who initially presented to the hospital back in June with respiratory complaints. She was diagnosed with a cavitary pneumonia at the time. Then she was found to the significant liver mass. 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 She was started on chemotherapy. Ultimately underwent a PET scan demonstrated that the liver mass that trunk in the FDG activity at the cruise. However, the cavitary lung lesion actually got worse with newer lesions as well. The patient was subsequently sent for a CT-guided biopsy which demonstrated no evidence of malignancy otherwise showed necrotizing and non-necrotizing granulomas. The patient was tested for tuberculosis which was negative. At this point the patient started to cough up blood. Denies any chest pains or any significant shortness of breath. Ultimately she was referred to Pulmonary. We did review her imaging studies and her symptoms during the office. the patient denies any exposure to anybody with tuberculosis or having tuberculosis herself. Again her T spot was negative although that is not 100%. We did talk about different options. At this point reviewing the CT scan appears to have significant hilar and mediastinal lymphadenopathy. Therefore Pulmonary bronchial ultrasound bronchoscopy with sampling of the lymph nodes and also plan to do a regular bronchoscopy to assess the right lower lobe cavity. Again infection likely due to the immunocompromised state is the most likely diagnosis. Fungal infections and mycobacterial disease are high in the differential. 03/13/2022 the patient is here for a pulmonary follow-up visit. The patient is status post bronchoscopy. No evidence of any malignancy noted on her CT scan which is reassuring. Her cultures were positive for both if fungal infection and also mycobacterial infection. As of yet were still waiting for the probe on the mycobacterial culture to rule out Mycobacterium tuberculosis. She already had a negative T spot therefore is unlikely to be tuberculosis. Will likely be more non tuberculosis mycobacteria infection. She will need to be treated however. In view of the fungal infection also refer her to Dr. Mercer. Once we have the identification of the organism reason start antibacterial therapy. However, need to be very careful with adverse effects from the multiple antimicrobial agents required to treat this type of smoldering infection. Since the bronchoscopy she still complaining of sore throat. I will send her Magic mouthwash to the pharmacy. 06/08/2022 the patient is here for a pulmonary follow-up visit. The patient overall is doing well. She is tolerating the antimycobacterial medication. She never to cover consult. Clinically she is doing better. She did follow-up with Infectious Disease in no further interventions are warranted. The patient did have blood work which is reassuring although she appears to be little dehydrated. She has needs to drink water. She has been complaining of heartburn after taking the medication. I will prescribe Pepsi that she can use at nighttime. In the meantime she also needs probiotics. I will send those also to the pharmacy. If she cannot get the mass prescription she should get them [id number]. Will have her get an EKG and also chest x-ray to assess response to therapy. She will continue with daily therapy with her severe mycobacterial disease. Clinically she is doing well which is reassuring will continue to monitor her progress. 08/17/2022 the patient is here for a pulmonary follow-up visit. Overall the patient has been doing better from a respiratory status. Denies any coughing denies any congestion or hemoptysis. She is tolerating the anti my call bacterial therapy although she is getting more nauseous now and increased heartburn. She is also having issues with diarrhea. Although she looks healthy year she still not gaining significant amount of weight. We did talk about adding nutritional snacks with high-protein to try to increase her calorie intake. We did review her last chest x-ray demonstrating interval improvement no overall airspace disease. She still has a thin walled cavity in the right hemithorax. I do believe the patient is making improvements. Also her laboratory data is reassuring. In view of her improvement in her adverse effects of the medications will go ahead and change her regimen from daily to 3 times a week. The family understands will try to keep her on the therapy until March. If the patient has a hard time with that therapy even 3 times a week eating sensitive monotherapy although that can increase the risk of resistance. 12/07/2022 the patient is here for pulmonary follow-up visit. The patient continues to do well. She is tolerating the medicine better now that is 3 times a week. Denies any worsening respiratory symptoms actually she feels okay. She also follows closely with Oncology for the liver disease. The patient did undergo a PET scan sometime in September 2022 demonstrating interval improvement in the parenchymal lung disease and appears that the cavity is smaller in size suggesting good response to therapy. She is going to continue with mycobacterial therapy 3 times a week for now. Will follow-up in 4-6 months to assess duration of therapy. FOR[facility], [facility] Medical History (Updated 12/07/22 @ 10:35 by Yovanny Schuler MD) Allergic rhinitis Anemia Chronic renal failure Depressive disorder Elevated blood sugar Hemoptysis HTN (hypertension) Injury of right knee Lymphadenopathy Mycobacterial disease Nontuberculous mycobacterial disease of lung Obesity Osteoarthritis Renal cyst Sore throat Vitamin deficiency, unspecified Surgical History History of section History of esophagogastroduodenoscopy (EGD) (~2017) History of liver biopsy (~2021) Family History Father Cancer Mother Cancer Paternal Grandmother Cancer Social History Household Members: None Housing: Apartment Are you a primary manager home healthcare to a significant other at home: No 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) Patient Tobacco Use Status: Never used Tobacco service: No Current occupational status: retired and disabled Review of Systems Const Denies excessive sweating, Reports fatigue, Denies fever(s) and Reports weight loss Eyes Denies change in vision and Denies itchy eyes ENT Denies change in voice and Reports sore throat Card Denies chest pain Resp Denies cough and Denies hemoptysis GI Reports no additional complaints Musc Reports myalgias Neuro Reports no additional complaints Endo Denies excessive sweating and Reports fatigue Sumit/Lymph Denies easy bleeding and Denies easy bruising Aller/Immun Denies itchy eyes Physical Exam Vital Signs: Last Vital Signs Pulse 60 12/07/22 10:16 BP 124/60 12/07/22 10:16 Pulse Ox 98 12/07/22 10:16 Oxygen Delivery Method Room Air 12/07/22 10:16 BMI result Body Mass Index 18.7 Const General: comfortable and alert HEENT Head: Yes normal to inspection Eyes General: appearance normal, both eyes and all related structures Neck Neck: Yes supple Chest Chest palpation & inspection: normal inspection of the chest Resp Effort & Inspection: normal respiratory effort Auscultation: no rales, no rhonchi, no wheezes and diminished lung sounds Cardio Rate: regular rate Rhythm: regular rhythm Heart sounds: S1 normal heart sound present and S2 normal heart sound present GI Auscultation: normal bowel sounds General: Yes no CVA tenderness Back/Spine/Pelvis Back: no CVA tenderness Extrem General: No clubbing and No cyanosis Left lower extremity: ankle Details: tenderness Location: anteromedially (with induration, cord like) Assessment & Plan Assessment & Plan (1) Cavitary lesion of lung: Code(s): J98.4 - Other disorders of lung (2) Lymphadenopathy: Code(s): R59.1 - Generalized enlarged lymph nodes (3) Mycobacterial disease: Code(s): A31.9 - Mycobacterial infection, unspecified (4) Leg pain, left: Code(s): M79.605 - Pain in left leg Plan continue Azithromycin/Ethambutol MWF EKG/CXR/Bloodwork Pepcid probiotics LE doppler to r/o DVT F/U 3-4 months Orders: Orders ECG 12 lead EKG Today J44.9 - Chronic obstructive pulmonary disease, unspecified US venous duplex LE LT Today M79.605 - Pain in left leg Coding Level of Care Code Est Pt Level 4 (46981) Diagnoses Cavitary lesion of lung J98.4 Lymphadenopathy R59.1 Mycobacterial disease A31.9 Leg pain, left M79.605 Time Spent (min) 20
[2022-12-07 10:16] VITALS: BP 124/60; PULSE 60; O2SAT 98; BMI 18.7
== END 2022-12-07 11:05 | disposition home or self-care (01) ==
PROVIDERS: PCP Internal Medicine; Visit Provider Hospitalist
DX: J98.4 Other disorders of lung (principal); R59.1 Generalized enlarged lymph nodes; A31.9 Mycobacterial infection, unspecified; M79.605 Pain in left leg
CPT/HCPCS: 99214

== ENCOUNTER → 2022-12-07 09:37 | Outpatient (BNVA) | payer OTHER, SELFPAY | PROVIDERS: Visit Provider Hospitalist | DX: J98.4 Other disorders of lung (principal); R59.1 Generalized enlarged lymph nodes; M79.605 Pain in left leg; A31.9 Mycobacterial infection, unspecified | CPT/HCPCS: 99212 ==

== ENCOUNTER 2022-12-08 11:20 | Outpatient (REF) | payer OTHER, SELFPAY ==
--- NOTE | ~2022-12-08 | US_ITS ---
EXAMINATION: US VENOUS ULTRASOUND WITH DOPPLER LOWER EXTREMITY, LEFT CLINICAL INFORMATION: Pain left leg COMPARISON: None available. TECHNIQUE: Ultrasound of the deep veins is performed from the hip to the calf with compression sonography and color and pulse Doppler assessment. Spectral analysis with color-flow imaging is performed. FINDINGS: There is normal venous compression and respiratory variation and augmented flow. The visualized common femoral vein, superficial femoral vein, profunda femoral vein, popliteal vein, and the trifurcation region shows no evidence of deep venous thrombosis. There is no significant popliteal fossa cyst. The contralateral common femoral vein is patent. If the patient's symptoms persist, followup ultrasound in 5 days 7 days might be of value to exclude proximal propagation from a non-visualized calf vein. Left popliteal fossa cyst measuring 2.3 x 0.9 x 1.9 cm. US/US venous duplex LE IMPRESSION: 1. No DVT demonstrated in the left lower extremity. 2. Left popliteal fossa cyst measuring 2.3 x 0.9 x 1.9 cm.
== END 2022-12-08 11:21 | disposition home or self-care (01) ==
LOC: HO.US 11:20
PROVIDERS: PCP Internal Medicine; Visit Provider Hospitalist
DX: M79.605 Pain in left leg (principal)
CPT/HCPCS: 93971

== ENCOUNTER 2023-01-27 18:53 | Emergency (ER) | payer OTHER, SELFPAY ==
--- NOTE | ~2023-01-27 | XR_ITS ---
EXAMINATION: XR CHEST CLINICAL INFORMATION: Weakness COMPARISON: 06/10/2022 TECHNIQUE: Frontal view of the chest was obtained. FINDINGS: The cardiomediastinal silhouette is stable. There is no focal lung consolidation or pleural effusion. There appears to be a calcific granuloma right upper lobe. The bony structures are osteopenic. Soft tissues are unremarkable. XR/XR chest 1V IMPRESSION: No active cardiopulmonary disease. No significant change.
--- NOTE | 2023-01-27 07:37 | ECG_ITS ---
Test Reason : DIZZINESS Blood Pressure : / mmHG Vent. Rate : 051 BPM Atrial Rate : 051 BPM P-R Int : 126 ms QRS Dur : 092 ms QT Int : 432 ms P-R-T Axes : 017 -24 023 degrees QTc Int : 398 ms Sinus bradycardia Incomplete right bundle branch block Borderline ECG When compared with ECG of 10-JUN-2022 10:20, No significant change was found Referred By: Nehal Broussard Electronically Signed By:NICHOLE BILLINGS
[2023-01-27 19:10] VITALS: BP 142/65; PULSE 50; RESP 18; TEMP 36.8; O2SAT 96; BMI 19.1
--- NOTE | 2023-01-27 19:27 | ED_ITS ---
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 Patient denies new regimen or new chemotherapy/radiation. Reports she feels at baseline at present. Does admitted nonbloody diarrhea this morning. Denies CP/SOB, abdominal pain, nausea/vomiting, pedal edema, dysuria/hematuria Onset (ago): hour(s) Related Data Home Medications Medication Instructions Recorded Confirmed cholecalciferol (vitamin D3) 25 1 tab PO DAILY 07/05/21 10/14/22 mcg (1,000 unit) tablet cyanocobalamin (vitamin B-12) 500 1 tab DAILY 07/05/21 10/14/22 mcg tablet cetirizine 10 mg tablet 1 tab PO DAILY 07/23/21 10/14/22 donepezil 5 mg tablet 5 mg PO DAILY 02/12/22 10/14/22 Previous Rx's Medication Instructions Recorded ferrous sulfate 325 mg (65 mg 325 mg PO DAILY #30 tabs 07/23/21 iron) tablet famotidine 40 mg tablet (Pepcid) 40 mg PO BEDTIME 30 days #30 tabs 06/08/22 omeprazole 40 mg capsule,delayed 40 mg PO DAILY #30 caps 08/04/22 release azithromycin 500 mg tablet 500 mg PO 3XW 28 days #12 tabs 08/19/22 ethambutol 400 mg tablet 400 mg PO 3XW 28 days #12 tabs 08/19/22 Allergies Allergy/AdvReac Type Severity Reaction Status Date / Time No Known Allergies Allergy Verified 12/07/22 10:19 [No Known Allergies*] Review of Systems 2 Review of Systems: Constitutional: No Fever, No Chills, + Fatigue, +Malaise, +shakiness ENT/Mouth: No Ear Pain, No Nasal Congestion, No Sinus Pain, No Hoarseness, No sore throat, No Rhinorrhea, No Swallowing Difficulty Eyes: No Eye Pain, No Swelling, No Redness, No Vision Changes Cardiovascular: No Chest Pain, No SOB, No Edema, No Palpitations Respiratory: No Cough, No Sputum, No Dyspnea Gastrointestinal: No Nausea, No Vomiting, No Diarrhea, No Constipation, No Abdominal pain Genitourinary: No Dysuria, No Urinary Frequency, No Hematuria, No Flank Pain Musculoskeletal: No joint pain, No Myalgias, No Joint Swelling Skin: No Skin Lesions, No rash Neuro: +Weakness, No Numbness, No Paresthesias, No Loss of Consciousness, No Dizziness, No Headache Yes all other systems are reviewed and are negative Constitutional: Constitutional: Reports as per HPI Neurologic: Denies Abnormal speech present [facility] Past Medical History Attestation statement: The following information was validated with the patient. Source: old records reviewed Medical History Sore throat 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 Hemoptysis Lymphadenopathy Injury of right knee Elevated blood sugar Chronic renal failure Renal cyst Vitamin deficiency, unspecified Allergic rhinitis Depressive disorder Osteoarthritis Obesity HTN (hypertension) Anemia Surgical History History of esophagogastroduodenoscopy (EGD) (~2017) History of section History of liver biopsy (~2021) Family History Family History Father Cancer Mother Cancer Paternal Grandmother Cancer Social History Social History Household Members: None Housing: Apartment Are you a primary ocular care aide to a significant other at home: No 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) Patient Tobacco Use Status: Never used Tobacco Advance Directives: No Advance Directives Information Provided: Yes service: No Current occupational status: retired and disabled Physical Exam ED Vital Signs: Vital Signs - 24 hr 01/27/23 19:10 01/27/23 19:47 01/27/23 19:49 Temperature 98.3 F Pulse Rate 50 53 54 Respiratory Rate 18 Blood Pressure 142/65 H 131/65 143/61 H Pulse Oximetry 96 Oxygen Delivery Method 01/27/23 19:50 01/28/23 00:15 Temperature Pulse Rate 62 47 L Respiratory Rate 15 Blood Pressure 153/65 H 128/60 Pulse Oximetry 97 Oxygen Delivery Method Room Air BMI result Body Mass Index 19.1 Const General: cooperative, healthy appearing and no acute distress Orientation/consciousness: patient oriented x3 Limitations: no limitations HENMT Head: Yes normal to inspection and Yes atraumatic Ears: hearing grossly normal bilaterally General nose exam: Normal external nose present Face and sinus: Yes normal facial exam Throat: Yes posterior oropharynx normal and Yes uvula midline Eyes General: appearance normal, both eyes and all related structures EOM: EOMs intact bilaterally Neck Neck: Yes normal visual inspection and Yes no meningeal signs Resp Effort & Inspection: normal respiratory effort and no respiratory distress Auscultation: clear to auscultation bilaterally, no crackles and no wheezes Cardio Rate: regular rate Heart sounds: S1 normal heart sound present and S2 normal heart sound present GI Inspection: Yes normal to inspection Palpation (GI): Soft to palpation, nontender, no guarding and not rigid General: Yes no CVA tenderness Back/Spine/Pelvis Back: no CVA tenderness Skin Rashes: no rashes Wounds: no wounds Neuro General: patient oriented x3, tone normal, moves all extremities, no meningeal signs, no focal motor deficits and CN's II-XI intact bilaterally Cranial nerves: Yes CN's II-XII intact bilaterally and Yes Bilaterally intact EOM present Cognition (Neuro): normal cognition Speech: No Abnormal speech present Gait exam (Neuro): Normal gait present Motor exam (neuro): 5/5 motor strength present throughout and no tremor noted Extrem General: Yes normal to inspection Course Course Course Narrative: -2241--chronic leukopenia. Chronic anemia. Chronically elevated BUN -troponin negative XR chest 1V IMPRESSION: No active cardiopulmonary disease. No significant change. -orthostatic vital signs negative -0028--UA not infected. Patient remains at baseline since ED arrival. WATCH CRYSTAL CUTTER at bedside will transfer patient home Results discussed with patient including worrisome signs and symptoms and strict return precautions, and when to return to the emergency department. They verbalized understanding and feel safe for discharge at this time. 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 On exam vital signs stable, NAD, nontoxic appearing, physical exam nonfocal, lungs CTA, no focal deficits. No appreciable shakiness. Concern for chemotherapy reaction. Rule out metabolic/infectious etiologies. Unlikely ACS/PE or CVA/TIA Plan: EKG, labs, CXR, UA, orthostatics re-evaluate Please refer to course for remaining clinical decision making, interpretation of labs/imaging results, and discussions with consultants and/or family members. Differential Diagnosis Differential Diagnoses: The differential diagnosis associated with the presentation includes As above Admission/Observation Consideration of admission/observation: Escalation of care including admission/observation considered Lab Data MDM Lab Attestation statement: I reviewed the patient's lab results. 01/27/23 20:15 01/27/23 20:15 Labs: Lab Results 01/27/23 01/27/23 01/27/23 Range/Units 19:32 20:15 23:57 WBC 3.1 L (4.8-10.8) X10*3/uL RBC 3.45 L (4.20-5.50) X10*6/uL Hgb 10.9 L (12.0-16.0) g/dl Hct 32.9 L (37.0-47.0) % MCV 95.4 (80.0-98.0) fL MCH 31.6 (27.0-33.0) pg MCHC 33.1 (31.0-35.0) g/dl RDW 12.4 (11.0-16.0) % Plt Count 161 (160-400) X10*3/uL MPV 10.3 (9.4-12.3) fL Immature Gran % (Auto) 0.0 (0.0-0.4) % Neut % (Auto) 63.3 (45-73) % Lymph % (Auto) 27.8 (20-40) % Sheridan % (Auto) 6.7 (2-11) % Eos % (Auto) 1.6 (0-4) % Baso % (Auto) 0.6 (0-2) % Lymph # (Auto) 0.9 L (1.2-4.9) X10*3/uL [place]idan # (Auto) 0.2 (0.1-1.2) X10*3/uL Eos # (Auto) 0.1 (0.0-0.4) X10*3/uL Baso # (Auto) 0.0 (0.0-0.2) X10*3/uL Abs Immat Gran (auto) 0.00 (0.00-0.03) X10*3/uL Absolute Neuts (auto) 2.0 (2.0-8.3) x10*3/uL Absolute Nucleated RBC 0.000 (0.0-0.012) X10*3/uL Nucleated RBC % (auto) 0.0 (0.0-0.2) /100WBC Sodium 143 (135-145) mmol/L Potassium 4.9 (3.3-5.1) mmol/L Chloride 107 (96-108) mmol/L Carbon Dioxide 27 (22-29) mmol/L Anion Gap 14 (12-20) BUN 25 H (9-16) mg/dL Creatinine 1.22 (0.5-1.4) mg/dL Estim Creat Clear Calc 29.8 Estimated GFR 43 POC Glucose 89 (60-115) mg/dL Random Glucose 107 (60-115) mg/dL Calcium 9.7 (8.4-10.2) mg/dL Magnesium 2.5 (1.6-2.6) mg/dL Total Bilirubin 0.4 (0.0-1.0) mg/dL AST 15 (5-31) U/L ALT 10 (0-31) U/L Alkaline Phosphatase 77 (39-117) U/L Troponin I High Sens < 2.7 (<3.5-17.0) ng/L Total Protein 7.3 (6.5-8.0) g/dL Albumin 3.9 (3.5-5.0) g/dL Urine Color Yellow Urine Appearance Clear Urine pH 7.5 (5.0-9.0) Ur Specific [place] 1.015 (1.005-1.025) Urine Protein Negative (Neg-Trace) mg/dL Urine Glucose (UA) Negative (Negative) mg/dL Urine Ketones Negative (Negative) mg/dL Urine Blood Negative (Negative) Urine Nitrite Negative (Negative) Ur Leukocyte Esterase Negative (Negative) Radiology Impression Discussion of test interpretation with radiology: I have reviewed the radiologist's reading. Independent Historian Clinical information obtained from an independent historian. History obtained from or confirmed by: EMS and Other External Record Review External record reviewed: Inpatient record, Office record, Outpatient record, Prior outpatient labs, Prior outpatient radiology, Primary care record and Outside ED record Tests considered The following testing was considered but not selected: As above Chronic Conditions Patient?s care impacted by: Cancer Discharge Plan Discharge Clinical Impression: Shakiness, Generalized weakness Patient Disposition: Home, Self-Care Instructions: Weakness (ED) Additional Instructions: Your blood work, urine, chest x-ray were reassuring Call your oncologist in the morning to make aware that your in the emergency department Continue home medications If symptoms persist or worsen return to the ED Prescriptions: No Action azithromycin 500 mg tablet 500 mg PO 3XW 28 Days Qty: 12 6RF Rx Instructions: Wednesday, Wednesday, Wednesday ethambutol 400 mg tablet 400 mg PO 3XW 28 Days Qty: 12 6RF Rx Instructions: Wednesday, Wednesday, Wednesday cyanocobalamin (vitamin B-12) 500 mcg tablet 1 tab DAILY cholecalciferol (vitamin D3) 25 mcg (1,000 unit) tablet 1 tab PO DAILY cetirizine 10 mg tablet 1 tab PO DAILY ferrous sulfate 325 mg (65 mg iron) Tablet 325 mg PO DAILY Qty: 30 3RF omeprazole 40 mg Capsule,Delayed Release(Dr/Ec) 40 mg PO DAILY Qty: 30 3RF donepezil 5 mg tablet 5 mg PO DAILY famotidine [Pepcid] 40 mg tablet 40 mg PO BEDTIME 30 Days Qty: 30 6RF [place] [facility] [place]Provider Group] Jefferson Sosa MD [Primary Care Provider] - Interventions: ED Discharge Assessment Last Done: 01/28/23 01:12 Discharge Date/Time: 01/28/23 01:12
[2023-01-27 19:38] LABS: Glucose, Whole Blood 89 mg/dL (60-115)
--- OUTSIDE RECORDS SUMMARY | 2023-01-27 19:43 | XMS_ITS | Continuity of Care Document ---
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 Role Phone Mariza Moya MD [id number] Date(s): 08/08/21 - 12/08/21 [facility] [address] [place] [id number] Discharge Disposition: A-D/C Home Attending Physician: Mary Martin MD Admitting Physician: Mary Martin MD Referring Physician: Porsche Mario MD Allergies, Adverse Reactions, Alerts No Known Allergies Medications aspirin 81 mg oral delayed release tablet 81 mg, By Mouth, Daily, Refills 0, Maintenance, 06/29/16 11:32:43 Start Date: 06/29/16 Status: Ordered cetirizine 10 mg oral tablet 1 tablet = 10 mg, By Mouth, Daily, # 30 tablet, 0 Refills, Maintenance, 08/25/21 13:54:00 EDT, Tablet, Partial fill upon patient request if the prescription is for a schedule II opioid drug. Start Date: 08/25/21 Status: Ordered lisinopril 10 mg oral tablet 10 mg, 1, tablet, By Mouth, Daily, # 30 tablet, Refills 0, Maintenance, 06/28/16 10:00:00 Start Date: 06/28/16 Status: Ordered Vit B Complex Tablet 1 tablet, By Mouth, Daily, 0 Refills, Maintenance, 06/28/16 10:00:00, Tablet Start Date: 06/28/16 Status: Ordered Vital Signs Most recent to oldest [Reference Range]: 1 Height 152.9 cm (08/25/21 1:41 PM) Weight 44.5 kg (08/25/21 1:41 PM) Pulse Rate [55-90 bpm] 84 bpm (08/25/21 1:41 PM) Body Mass Index [18.5-24.99] 19.03 (08/25/21 1:41 PM) Blood Pressure [90-138/55-84 mm Hg] 104/ 63mm Hg (08/25/21 1:41 PM) Temperature [96.8-100.4 DegF] 97.5 DegF (08/25/21 1:41 PM) Blood pressure sites Arm, right (08/25/21 1:41 PM) Temperature Route Temporal (08/25/21 1:41 PM) Dry Weight 44.5 kg (08/25/21 1:41 PM) Weight Obtained Via Standing scale (08/25/21 1:41 PM) Dry Weight Obtained Via Standing scale (08/25/21 1:41 PM) Social History Social History Type Response Sex Female
--- OUTSIDE RECORDS SUMMARY | 2023-01-27 19:43 | XMS_ITS | Continuity of Care Document ---
Author Name Unknown Organization [facility] Address [address] [place] [address]- Care Team Providers Care Shank Sander Name Role Phone Mariza Moya MD Primary Care Physicia n Encounter [facility] R [id number] Date(s): 01/17/22 - 01/24/22 [facility] [address] [place] [address]- Attending Physician: Zbigniew Strange DO Referring Physician: Mariza Moya MD Allergies, Adverse Reactions, Alerts No Known [...] 06/28/16 10:00:00 Start Date: 06/28/16 Status: Ordered Medrol 4 mg oral tablet 1 pack/packet, By Mouth, Once, # 21 tablet, 0 Refills, Soft Stop, 01/17/22 13:54:00 EDT, Tablet, [facility]/pharmacy #[id number], Partial fill upon patient request if the prescription is for a schedule II opioid drug., 152.9, cm, 01/17/22 13:27:00 EDT, Height, 41.... Start Date: 01/17/22 Status: Ordered permethrin 5% topical cream 1 application, Topically, Once, Apply to skin from head to soles. Leave on 8-10 hours then wash off, # 60 mL, 0 Refills, Soft Stop, 01/17/22 13:55:00 EDT, Lotion, [facility]/pharmacy #[id number], Partial fill upon patient request if the prescription is for a sched... Start Date: 01/17/22 Status: Ordered Vit B Complex Tablet 1 tablet, By Mouth, Daily, 0 Refills, Maintenance, 06/28/16 10:00:00, Tablet Start Date: 06/28/16 Status: Ordered Vital Signs Most recent to oldest [Reference Range]: 1 Height 152.9 cm (01/17/22 1:27 PM) Oxygen Saturation [94-100 %] 96 % (01/17/22 1:27 PM) Pulse Rate [55-90 bpm] 74 bpm (01/17/22 1:27 PM) Blood Pressure [90-138/55-84 mm Hg] 112/ 63mm Hg (01/17/22 1:27 PM) Temperature [96.8-100.4 DegF] 98.4 DegF (01/17/22 1:27 PM) Mode of Delivery (Oxygen) Room air (01/17/22 1:27 PM) Blood pressure sites Arm, left (01/17/22 1:27 PM) Temperature Route Temporal (01/17/22 1:27 PM) Dry Weight 41.5 kg (01/17/22 1:27 PM) Dry Weight Obtained Via Patient/family s tated (01/17/22 1:27 PM) Social History Social History Type Response Sex Female Care Team Personnel Name: Griffin ORTIZ, [facility] Address: [address] [place] [address] Griffin ORTIZ [address]
--- OUTSIDE RECORDS SUMMARY | 2023-01-27 19:43 | XMS_ITS | Continuity of Care Document ---
Author Name Unknown Organization [facility] ter Address [address] [place] [id number]- Care Team Providers Care Laborer [employer] Name Role Phone Griffin ORTIZ, Mariza Carranza Primary Care Physicia n Encounter [facility] Date(s): 03/03/19 - 04/27/19 [facility] [address] [place] [address]- [facility] Attending Physician: Florin Crowder MD Referring Physician: Florin Crowder MD Allergies, Adverse Reactions, Alerts Substance Reaction Severity Status NKA Active Medications aspirin 81 mg oral delayed release tablet 81 mg, By Mouth, Daily, Refills 0, Maintenance, 06/29/16 11:32:43 Start Date: 06/29/16 Status: Ordered lisinopril 10 mg oral tablet 10 mg, 1, tablet, By Mouth, Daily, # 30 tablet, Refills 0, Maintenance, 06/28/16 10:00:00 Start Date: 06/28/16 Status: Ordered Vit B Complex Tablet 1 tablet, By Mouth, Daily, 0 Refills, Maintenance, 06/28/16 10:00:00, Tablet Start Date: 06/28/16 Status: Ordered Social History Social History Type Response Sex Female
--- OUTSIDE RECORDS SUMMARY | 2023-01-27 19:43 | XMS_ITS | Continuity of Care Document ---
Author Name Unknown Organization [facility] Address [address] [place] [address]- Care Team Providers Care Medical Director Occupational Health Name Role Phone Griffin ORTIZ, Mariza Carranza Primary Care Physicia n Encounter [facility] [id number] Date(s): 01/17/22 - 02/16/22 [facility] [address] [place] [address]- Attending Physician: Angel Khan Admitting Physician: Angel Khan Referring Physician: AdmtrAngel Allergies, Adverse Reactions, Alerts No Known Allergies [...] Refills, Soft Stop, 01/17/22 13:54:00 EDT, Tablet, [facility]/pharmacy #[id number], Partial fill upon patient request if the prescription is for a schedule II opioid drug., 152.9, cm, 01/17/22 13:27:00 EDT, Height, 41.... Start Date: 01/17/22 Status: Ordered permethrin 5% topical cream 1 application, Topically, Once, Apply to skin from head to soles. Leave on 8-10 hours then wash off, # 60 mL, 0 Refills, Soft Stop, 01/17/22 13:55:00 EDT, Lotion, [facility]/pharmacy #[id number], Partial fill upon patient request if the prescription is for a sched... Start Date: 01/17/22 Status: Ordered Vit B Complex Tablet 1 tablet, By Mouth, Daily, 0 Refills, Maintenance, 06/28/16 10:00:00, Tablet Start Date: 06/28/16 Status: Ordered Social History Social History Type Response Sex Female Patient Care team information Personnel Name: Griffin ORTIZ, Mariza Carranza Address: Address: [address] [place] [address] [place] [address]
--- OUTSIDE RECORDS SUMMARY | 2023-01-27 19:44 | XMS_ITS | Continuity of Care Document ---
Author Name Unknown Organization [facility] Address [address] [place] [address]- Care Team Providers Care Carton Liner Name Role Phone Griffin ORTIZ, Mariza Carranza Primary Care Physicia n Encounter [facility] [place] Date(s): 08/08/21 - 09/07/21 [facility] [address] [place] [address]- Attending Physician: Angel Khan Admitting Physician: Angel [...]
[2023-01-27 19:47] VITALS: BP 131/65; PULSE 53
[2023-01-27 19:49] VITALS: BP 143/61; PULSE 54
[2023-01-27 19:50] VITALS: BP 153/65; PULSE 62
[2023-01-27 20:20] LABS: MANUAL DIFF FLAG NO
[2023-01-27 20:35] LABS: Basophils Percent Auto 0.6 % (0-2); Eosinophils Absolute Auto 0.1 X10*3/uL (0.0-0.4); Eosinophils Percent Auto 1.6 % (0-4); Hematocrit 32.9 % (37.0-47.0); Hemoglobin 10.9 g/dl (12.0-16.0); Lymphocytes Absolute Auto 0.9 X10*3/uL (1.2-4.9); Lymphocytes Percent Auto 27.8 % (20-40); Mean Corpuscular HGB Conc 33.1 g/dl (31.0-35.0); Mean Corpuscular Hemoglobin 31.6 pg (27.0-33.0); Mean Corpuscular Volume 95.4 fL (80.0-98.0); Mean Platelet Volume 10.3 fL (9.4-12.3); Monocytes Absolute Auto 0.2 X10*3/uL (0.1-1.2); Monocytes Percent Auto 6.7 % (2-11); Neutrophils Percent Auto 63.3 % (45-73); Platelet Count 161 X10*3/uL (160-400); Red Blood Count 3.45 X10*6/uL (4.20-5.50); Red Cell Distribution Width 12.4 % (11.0-16.0); White Blood Count 3.1 X10*3/uL (4.8-10.8)
[2023-01-27 20:44] LABS: Alanine Aminotransferase 10 U/L (0-31); Albumin Level 3.9 g/dL (3.5-5.0); Alkaline Phosphatase 77 U/L (39-117); Anion Gap 14 (12-20); Aspartate Amino Transferase 15 U/L (5-31); Bilirubin Total 0.4 mg/dL (0.0-1.0); Blood Urea Nitrogen 25 mg/dL (9-16); Calcium 9.7 mg/dL (8.4-10.2); Carbon Dioxide 27 mmol/L (22-29); Chloride 107 mmol/L (96-108); Creatinine Clr Calc Pharmacy 29.8; Estimated Glomerular Filt Rate 43; Glucose Random 107 mg/dL (60-115); Magnesium 2.5 mg/dL (1.6-2.6); Potassium 4.9 mmol/L (3.3-5.1); Sodium 143 mmol/L (135-145); Total Protein 7.3 g/dL (6.5-8.0)
[2023-01-27 20:50] LABS: Troponin-I High Sensitivity < 2.7 ng/L (<3.5-17.0)
[2023-01-28 00:09] LABS: Appearance Urine Clear; Color Urine Yellow; Glucose Urine UA Negative (Negative); Leukocyte Esterase Urine Negative (Negative); Nitrite Urine Negative (Negative); PH 7.5 (5.0-9.0); Specific Gravity - Urine 1.015 (1.005-1.025); Urine Blood Negative (Negative); Urine Ketones Negative (Negative); Urine Protein Negative (Neg-Trace)
[2023-01-28 00:15] VITALS: BP 128/60; PULSE 47; RESP 15; O2SAT 97
== END 2023-01-28 01:12 | disposition home or self-care (01) ==
PROVIDERS: Physician Assistant; Emergency Provider Emergency Medicine Emergency Medical Services; PCP Internal Medicine
DX: R42 Dizziness and giddiness (principal); R53.1 Weakness; R00.1 Bradycardia, unspecified; Z79.899 Other long term (current) drug therapy
CPT/HCPCS: 36415; 71045; 80053; 81003; 82947; 83735; 84484; 85025; 93005; 99283

== ENCOUNTER 2023-05-24 16:14 | Inpatient (IN) | payer OTHER, SELFPAY ==
--- NOTE | ~2023-05-24 | CT_ITS ---
EXAMINATION: CT CHEST WITHOUT IV CONTRAST CT ABDOMEN AND PELVIS WITHOUT IV CONTRAST CLINICAL INFORMATION: History of liver cancer. COMPARISON: CT chest 07/07/2021. CT-guided biopsy 05/25/2021. TECHNIQUE: 5 mm thin axial and reformatted 3 mm thin sagittal and coronal images of the chest were obtained without contrast. Subsequently, 5 mm thin axial and reformatted 3 mm thin sagittal and coronal images of the abdomen and pelvis were obtained without contrast. DLP: 328 mGy-cm. This CT examination was performed using dose optimization technique as appropriate, variously including the following: Automated exposure control Adjustment of MA and/or KV according to patient size(this includes techniques or standardized protocols for targeted exams where dose is matched to indication/reason for exam; extremities or head. Use of iterative reconstruction techniques. FINDINGS: CHEST: Lungs: Again visualized is a small cavitary lesion with air-fluid level in the right lower lobe measuring 2.7 x 2.5 cm. Previously it measured 4.0 x 3.0 cm. It has slightly reduced in size likely secondary to biopsy. The irregular-appearing wall is 2 mm compared to 4-5 mm in thickness previously. The parenchymal tissue around the cavity has improved. The small 5 mm nodule inferior to the cavity right lower lobe has improved as well. There are two 3 mm nodules left lower lobe on axial image 33/4 and 34/4 which are stable. There are additional smaller nodules seen in the right lower lobe adjacent posterior mediastinum which are stable as well. There are 3 mm nodules adjacent to the major fissure and right lower lobe on axial image 59/8 which are stable as well. There are 2 mm scattered pulmonary nodules in the right middle lobe, lingula which are stable or slightly improved in size. The parenchymal reticular stranding and patchy parenchymal opacities have improved. There are no new nodules or enlargement of existing nodules at this time. Mild atelectatic changes seen right middle lobe. Mediastinum: The central trachea and bronchi are widely patent. Thyroid lobes are symmetrical and normal. No abnormal size mediastinal or hilar lymph nodes seen. Heart size and the great vessels are normal. There is [id number] coronary artery and aortic valve calcifications. There is no pericardial effusion. Pleura: There is no abnormal pleural effusion, thickening or calcification. Axilla: Unremarkable. The chest wall is unremarkable. Osseous Structures: No aggressive lytic or sclerotic process seen. The paravertebral soft tissues are normal. ABDOMEN AND PELVIS: Liver, Ducts and Gallbladder: The liver is normal size, contour and density. No focal lesion or intrahepatic ductal dilatation seen. There are multiple radiopaque gallstones. Mild wall thickening. Spleen: Unremarkable. Pancreas: Unremarkable. Adrenal Glands: Unremarkable. Kidneys: Both kidneys are normal size, shape and position. No radiopaque renal calculi seen. There is a 3.6 cm simple cyst mid to lower pole right kidney. There is no perinephric stranding. Lymphovascular Structures: Abdominal aorta is normal caliber. No retrobulbar lymph nodes seen. GI Tract: There is scattered stool, diverticula and gas seen throughout the colon without distention. There is no diverticulitis. The small bowel loops are normal caliber. The appendix is not seen. Abdominal Wall: Unremarkable. Pelvis: The uterus is midline with an IUD well located within the endometrial canal. No adnexal mass. There is minimal fluid in the right cul-de-sac. Osseous Structures: No aggressive lytic or sclerotic process seen. CT/CT abdomen pelvis wo IV con IMPRESSION: 1. Cavitary lesion in the right lower lobe has slightly decreased in size. The surrounding parenchymal tissue has improved. 2. Multiple bilateral pulmonary nodules are stable or slightly improved. No new nodules seen. If clinically patient has not improved, a repeat PET/CT imaging can be performed. 3. No abnormal mediastinal or hilar lymphadenopathy seen. 4. No acute process seen in the abdomen. 5. Cholelithiasis with mild wall thickening. 6. Mild constipation. Colonic diverticulosis without diverticulitis. 7. Minimal fluid in the right cul-de-sac. Fleischner guidelines were followed.
--- NOTE | ~2023-05-24 | XR_ITS ---
EXAMINATION: XR CHEST CLINICAL INFORMATION: Chest pain COMPARISON: Chest 01/27/2023 TECHNIQUE: 2 views of the chest were obtained. FINDINGS: The lungs are hyperinflated with a small bubble lower cyst right midlung parahilar region, stable. There is increased markings in both upper lobes and both lower lobes but no consolidation or pleural effusion seen. Bone windows reveal no acute bony abnormality. The soft tissues are normal. There are mild arthritic changes bilateral AC joints. XR/XR chest 2V IMPRESSION: Hyperinflated lungs with increased interstitial markings in both upper and both lower lobes. No acute consolidation or pleural effusion seen. Stable cyst right midlung.
[2023-05-24 16:24] VITALS: BP 130/76; BP 143/103; PULSE 58; PULSE 77; RESP 16; TEMP 36.6; O2SAT 100; O2SAT 99; BMI 18.5
--- NOTE | 2023-05-24 16:39 | ED_ITS ---
HPI - General Adult General Chief complaint: General Medical Stated complaint: SOB, difficulty breathing Time Seen by Provider: 05/24/23 16:21 Source: patient, RN notes reviewed and old records reviewed Mode of arrival: EMS Limitations: no limitations History of Present Illness HPI narrative: 77-year-old female with past medical history significant for this metastatic non-small cell lung cancer, carcinoma of the liver followed by Dr. 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 Patient reports that her symptoms started earlier today She reports feeling well yesterday and this morning when she woke up She states that she was having a hard time breathing prior to calling EMS but this has since improved She was only given supplemental oxygen for a short time in route Patient reports that she has not seen pulmonology for several months related to her mycobacterium infection but is still taking antibiotics and antifungal medications Denies any leg swelling No other complaints or concerns at this time Related Data Home Medications Medication Instructions Recorded Confirmed cholecalciferol (vitamin D3) 25 1 tab PO DAILY 07/05/21 10/14/22 mcg (1,000 unit) tablet cyanocobalamin (vitamin B-12) 500 1 tab DAILY 07/05/21 10/14/22 mcg tablet cetirizine 10 mg tablet 1 tab PO DAILY 07/23/21 10/14/22 donepezil 5 mg tablet 5 mg PO DAILY 02/12/22 10/14/22 Previous Rx's Medication Instructions Recorded ferrous sulfate 325 mg (65 mg 325 mg PO DAILY #30 tabs 07/23/21 iron) tablet omeprazole 40 mg capsule,delayed 40 mg PO DAILY #30 caps 08/04/22 release azithromycin 500 mg tablet 500 mg PO 3XW 28 days #12 tabs 08/19/22 ethambutol 400 mg tablet 400 mg PO 3XW 28 days #12 tabs 08/19/22 famotidine 40 mg tablet 40 mg PO BEDTIME #30 tabs 02/16/23 Allergies Allergy/AdvReac Type Severity Reaction Status Date / Time No Known Allergies Allergy Verified 12/07/22 10:19 [No Known Allergies*] Review of Systems 2 Constitutional: Constitutional: Denies chills, Denies fever(s), Reports headache(s), Reports malaise and Reports weakness Eyes: Eyes: Denies blurry vision ENT: Reports headache(s) Cardiovascular: Cardiovascular: Denies chest pain and Reports dyspnea Respiratory: Respiratory: Reports cough and Reports dyspnea Gastrointestinal: Gastrointestinal: Reports abdominal pain, Reports nausea and Denies vomiting Integumentary/Breasts: Skin/Breast: Denies rash Neurologic: Reports headache(s) and Reports weakness PMFSH Past Medical History Onset Date is defined in the Problem List Problems that require an onset date and time if occurred within 24 hrs of arrival to the ED Aortic Dissection and Rupture; Neurologic impairment; Cardiopulmonary Arrest; Endotracheal Intubation; Insertion or Replacement of Mechanical Circulatory Assist Device Medical History Sore throat 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 Hemoptysis Lymphadenopathy Injury of right knee Elevated blood sugar Chronic renal failure Renal cyst Vitamin deficiency, unspecified Allergic rhinitis Depressive disorder Osteoarthritis Obesity HTN (hypertension) Anemia Surgical History History of esophagogastroduodenoscopy (EGD) (~2017) History of section History of liver biopsy (~2021) Family History Family History Father Cancer Mother Cancer Paternal Grandmother Cancer Social History Social History Household Members: None Housing: Apartment Are you a primary physician primary care sports medicine to a significant other at home: No Do you presently have visiting nurse or other home services: Yes (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) Patient Tobacco Use Status: Never used Tobacco Use of substances other than those prescribed or required for medical reasons: No Advance Directives: No Advance Directives Information Provided: Yes service: No Current occupational status: retired and disabled Physical Exam ED Vital Signs: Vital Signs - 24 hr 05/24/23 16:24 05/24/23 20:20 Temperature 97.9 F 98.1 F Pulse Rate 77 73 Respiratory Rate 16 16 Blood Pressure 143/103 H 144/76 H Pulse Oximetry 99 98 Oxygen Delivery Method Room Air Room Air BMI result Body Mass Index 18.5 Const General: cooperative and comfortable; No healthy appearing Nutritional Appearance: cachectic and malnourished Orientation/consciousness: patient oriented x3 Limitations: no limitations HENMT Head: Yes normocephalic and Yes atraumatic Eyes Eyelids: Yes eyelids normal Conjunctivae: conjunctivae normal Sclerae: sclerae normal Corneas: corneas normal Pupils: Equal, round and reactive pupils present EOM: EOMs intact bilaterally Neck Neck: Yes full ROM Resp Effort & Inspection: normal respiratory effort, able to speak in complete sentences, no audible wheezes and not labored Auscultation: clear to auscultation bilaterally Cardio Rate: regular rate Rhythm: regular rhythm GI Inspection: No distended Palpation (GI): Soft to palpation, not firm, nontender, no guarding and not rigid Skin General skin exam: elasticity normal Neuro General: patient oriented x3 Cranial nerves: Yes Equal, round and reactive pupils present and Yes Bilaterally intact EOM present Cognition (Neuro): normal cognition Extrem Other: Moving all extremities well without any obvious deformities Course Reevaluation(s) Reevaluation #1: Received a call from the lab the patient a critical troponin of 54. I re- evaluated the patient, she remains chest pain-free at this time. I ordered a repeat troponin for a [address] Time: 20:00 Reevaluation #2: Patient's 3 hour troponin has increased to 180. Plan for repeat EKG and cardiology consultation. I will administer aspirin this time. The patient will likely require heparin. Again, on re-evaluation the patient reports she feels well and remains chest pain-free Time: 21:03 Reevaluation #3: Discuss with cardiology, Dr. Javier who agrees with aspirin, heparin and admission to hospital for NSTEMI. Time: 21:24 Medical Decision Making Medical Decision Making MDM Narrative: 77-year-old female with extensive past medical history including extensive lung infection followed by pulmonology, lung cancer and liver cancer followed by oncology complaining of shortness of breath that started suddenly today. Plan for EKG, troponin, chest x-ray, basic labs. Further workup as indicated. Will also get viral swabs the patient has headache, GI symptoms as well, so influenza/COVID-19 is quite likely. Vital signs are currently stable the patient is 99% on room air Differential Diagnosis Differential Diagnoses: The differential diagnosis associated with the presentation includes Influenza COVID-19 Mycobacterium Pneumonia TB Lung cancer PE less likely GERD Admission/Observation Consideration of admission/observation: Escalation of care including admission/observation considered Consult Healthcare Provider Management of the patient was discussed with: Cattyman (Cardiology) Lab Data MDM Lab Attestation statement: I reviewed the patient's lab results. Mild leukopenia and anemia consistent with her recent baseline. Normal platelet count. The patient does have a left shift. Electrolytes within normal limits, renal function is baseline with a BUN of 23 and creatinine 1.17. Her initial troponin was 54.7 with a repeat of 280.5 05/24/23 17:24 05/24/23 17:24 Labs: Lab Results 05/24/23 05/24/23 05/24/23 Range/Units 17:24 17:25 20:34 WBC 4.5 L (4.8-10.8) X10*3/uL RBC 3.42 L (4.20-5.50) X10*6/uL Hgb 10.7 L (12.0-16.0) g/dl Hct 32.4 L (37.0-47.0) % MCV 94.7 (80.0-98.0) fL MCH 31.3 (27.0-33.0) pg MCHC 33.0 (31.0-35.0) g/dl RDW 12.8 (11.0-16.0) % Plt Count 178 (160-400) X10*3/uL MPV 10.3 (9.4-12.3) fL Immature Gran % (Auto) 0.2 (0.0-0.4) % Neut % (Auto) 84.8 H (45-73) % Lymph % (Auto) 10.9 L (20-40) % [place] % (Auto) 3.5 (2-11) % Eos % (Auto) 0.4 (0-4) % Baso % (Auto) 0.2 (0-2) % Lymph # (Auto) 0.5 L (1.2-4.9) X10*3/uL [place] # (Auto) 0.2 (0.1-1.2) X10*3/uL Eos # (Auto) 0.0 (0.0-0.4) X10*3/uL Baso # (Auto) 0.0 (0.0-0.2) X10*3/uL Abs Immat Gran (auto) 0.01 (0.00-0.03) X10*3/uL Absolute Neuts (auto) 3.8 (2.0-8.3) x10*3/uL Absolute Nucleated RBC 0.000 (0.0-0.012) X10*3/uL Nucleated RBC % (auto) 0.0 (0.0-0.2) /100WBC Sodium 138 (135-145) mmol/L Potassium 4.4 (3.3-5.1) mmol/L Chloride 104 (96-108) mmol/L Carbon Dioxide 23 (22-29) mmol/L Anion Gap 15 (12-20) BUN 23 H (9-16) mg/dL Creatinine 1.17 (0.5-1.4) mg/dL Estim Creat Clear Calc 30.1 Estimated GFR 45 Random Glucose 110 (60-115) mg/dL Calcium 9.6 (8.4-10.2) mg/dL Total Bilirubin 0.5 (0.0-1.0) mg/dL AST 18 (5-31) U/L ALT 14 (0-31) U/L Alkaline Phosphatase 82 (39-117) U/L Troponin I High Sens 54.7 H* D 280.5 H* D (<3.5-17.0) ng/L Total Protein 8.0 (6.5-8.0) g/dL Albumin 4.3 (3.5-5.0) g/dL Lipase 15 (8-78) U/L COVID-19 (CAM) Negative (Negative) COVID-19 Clin Com See Note Influenza Type A (SLOAN) Negative (Negative) Influenza Type B (SLOAN) Negative (Negative) Influenza A & B Note See Note Independent Interpretation I performed an independent interpretation of an: EKG (Sinus rhythm with PAC. No ST segment elevations or depressions.) and Plain X-Ray (Previous cavitary lesion in the right mid lung is appreciable,) Radiology Impression Discussion of test interpretation with radiology: I have reviewed the radiologist's reading. (Hyperinflated lungs with increased interstitial markings in both upper and both lower lobes. No acute consolidation or pleural effusion. Stable cyst right mid lung) Critical Care Time Critical Care Time Critical Care Time: Yes Total Critical Care Time: 35 Attestation: Patient presents with upper abdominal pain radiating to her chest as well as neck pain, she is found to have elevated troponin and repeat troponin was 280. She ruled in for ACS, Cardiology consultation was performed and recommended for IV heparin Discharge Plan Discharge Clinical Impression: Non-ST elevation MS (NSTEMI) Patient Disposition: Admitted As Inpatient
--- NOTE | 2023-05-24 16:39 | ECG_ITS ---
Test Reason : PAIN Blood Pressure : / mmHG Vent. Rate : 062 BPM Atrial Rate : 062 BPM P-R Int : 134 ms QRS Dur : 096 ms QT Int : 384 ms P-R-T Axes : 074 -22 012 degrees QTc Int : 389 ms Sinus rhythm with Premature atrial complexes Incomplete right bundle branch block Nonspecific ST abnormality Abnormal ECG When compared with ECG of 27-JAN-2023 19:27, Premature atrial complexes are now Present Nonspecific T wave abnormality now evident in Lateral leads Referred By: Jim Julio Electronically Signed By:ISSAC SOUZA
[2023-05-24 17:29] LABS: MANUAL DIFF FLAG NO
[2023-05-24 17:30] LABS: Basophils Percent Auto 0.2 % (0-2); Eosinophils Percent Auto 0.4 % (0-4); Hematocrit 32.4 % (37.0-47.0); Hemoglobin 10.7 g/dl (12.0-16.0); Imm Gran Abs Auto 0.01 X10*3/uL (0.00-0.03); Imm Gran Pct Auto 0.2 % (0.0-0.4); Lymphocytes Absolute Auto 0.5 X10*3/uL (1.2-4.9); Lymphocytes Percent Auto 10.9 % (20-40); Mean Corpuscular Hemoglobin 31.3 pg (27.0-33.0); Mean Corpuscular Volume 94.7 fL (80.0-98.0); Mean Platelet Volume 10.3 fL (9.4-12.3); Monocytes Absolute Auto 0.2 X10*3/uL (0.1-1.2); Monocytes Percent Auto 3.5 % (2-11); Neutrophils Absolute Auto 3.8 x10*3/uL (2.0-8.3); Neutrophils Percent Auto 84.8 % (45-73); Platelet Count 178 X10*3/uL (160-400); Red Blood Count 3.42 X10*6/uL (4.20-5.50); Red Cell Distribution Width 12.8 % (11.0-16.0); White Blood Count 4.5 X10*3/uL (4.8-10.8)
[2023-05-24 17:47] LABS: Alanine Aminotransferase 14 U/L (0-31); Albumin Level 4.3 g/dL (3.5-5.0); Alkaline Phosphatase 82 U/L (39-117); Anion Gap 15 (12-20); Aspartate Amino Transferase 18 U/L (5-31); Bilirubin Total 0.5 mg/dL (0.0-1.0); Blood Urea Nitrogen 23 mg/dL (9-16); Calcium 9.6 mg/dL (8.4-10.2); Carbon Dioxide 23 mmol/L (22-29); Chloride 104 mmol/L (96-108); Creatinine Clr Calc Pharmacy 30.1; Estimated Glomerular Filt Rate 45; Glucose Random 110 mg/dL (60-115); Lipase 15 U/L (8-78); Potassium 4.4 mmol/L (3.3-5.1); Sodium 138 mmol/L (135-145)
[2023-05-24 17:50] LABS: COVID-19 Test Negative (Negative); IDNOW Serial# 08D9AD1C; IDNOW Serial# 152EDE1D
[2023-05-24 17:51] LABS: Influenza A Negative (Negative); Influenza B2 Negative (Negative)
[2023-05-24 19:45] LABS: Troponin-I High Sensitivity 54.7 ng/L (<3.5-17.0)
--- NOTE | 2023-05-24 19:50 | PC.NURSE ---
Pt ambulated to restroom with 1 assist.
[2023-05-24 20:20] VITALS: BP 144/76; PULSE 73; RESP 16; TEMP 36.7; O2SAT 98
[2023-05-24 20:59] LABS: Troponin-I High Sensitivity 280.5 ng/L (<3.5-17.0)
--- NOTE | 2023-05-24 20:59 | ECG_ITS ---
Test Reason : REPEAT EKG Blood Pressure : / mmHG Vent. Rate : 066 BPM Atrial Rate : 066 BPM P-R Int : 126 ms QRS Dur : 106 ms QT Int : 420 ms P-R-T Axes : 057 -14 -02 degrees QTc Int : 440 ms Normal sinus rhythm Incomplete right bundle branch block Septal infarct , age undetermined Abnormal ECG When compared with ECG of 24-MAY-2023 18:12, No significant changes seen Referred By: Jim Julio Electronically Signed By:ISSAC SOUZA
--- NOTE | 2023-05-24 21:30 | PC.NURSE ---
Sofie Herrmann, pts friend/roommate can be reached at [phone].
--- NOTE | 2023-05-24 21:58 | PM.IMHP ---
History of Present Illness Date of Service: 05/24/23 Chief Complaint: Abdominal pain This is a 77-year-old female with pertinent history of 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 Patient states she started having upper abdominal discomfort on the day of presentation. It was worse with movement and relieved with rest. No association with p.o. intake. No nausea, vomiting or sweating. It radiated to the shoulders. No cough. States she is compliant with her medications. No dyspnea, orthopnea, PND, palpitations, changes in urinary or bowel habits. In the emergency department, troponin was found to be elevated and Cardiology was consulted who requested admission with IV heparin. Review of Systems Constitutional: Constitutional: Reports no additional constitutional complaints Cardiovascular: Cardiovascular: Reports chest pain Respiratory: Respiratory: Reports no additional respiratory complaints Gastrointestinal: Gastrointestinal: Reports abdominal pain Genitourinary: Genitourinary: Reports no additional female genitourinary complaints [facility] Medical History Sore throat 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 Hemoptysis Lymphadenopathy Injury of right knee Elevated blood sugar Chronic renal failure Renal cyst Vitamin deficiency, unspecified Allergic rhinitis Depressive disorder Osteoarthritis Obesity HTN (hypertension) Anemia Family History Father Cancer Mother Cancer Paternal Grandmother Cancer Surgical History History of esophagogastroduodenoscopy (EGD) (~2017) History of section History of liver biopsy (~2021) Social History Household Members: None Housing: Apartment Are you a primary chronic care nurse to a significant other at home: No Do you presently have visiting nurse or other home services: Yes Patient Tobacco Use Status: Never used Tobacco Use of substances other than those prescribed or required for medical reasons: No Have you been hit, kicked, punched, or otherwise hurt by someone within the past year? If so, by whom?: No Do you feel safe in your current relationship?: Yes Is there a partner from a previous relationship who is making you feel unsafe now?: No Are you made to feel afraid or neglected: No Advance Directives: No Advance Directives Information Provided: Yes Do you have thoughts of harming others: None Do you have a plan to hurt others: No Plan Recently lost weight without trying: No Nutrition Risks: No Nutritional Risk Patient : No : No Poor oral hygiene: No service: No Current occupational status: retired and disabled Meds Allergies Allergy/AdvReac Type Severity Reaction Status Date / Time No Known Allergies Allergy Verified 12/07/22 10:19 [No Known Allergies*] Active Medications: Current Medications Acetaminophen (Acetaminophen 325 Mg Tablet) 650 mg PO Q6H PRN PRN Reason: Pain, Mild (Pain Scale 1-3) Heparin Sodium (Porcine) (Heparin Sodium,Porcine 5,000 Unit/Ml Vial) 1,800 unit 40 unit/kg (1800 unit) IVPUSH PROTOCOL BOLUS PRN; Protocol PRN Reason: 40 unit/kg - Heparin Protocol Heparin Sodium (Porcine) (Heparin Sodium,Porcine 5,000 Unit/Ml Vial) 3,700 unit 80 unit/kg (3700 unit) IVPUSH PROTOCOL BOLUS PRN; Protocol PRN Reason: 80 unit/kg - Heparin Protocol Heparin Sodium/Sodium Chloride (Heparin Sodium,Porcine/1/2ns) 25,000 unit in 250 mls @ 0 mls/hr IVCONT .Q0M [facility]; Protocol Melatonin (Melatonin 3 Mg Tablet) 6 mg PO BEDTIME PRN PRN Reason: Insomnia Ondansetron HCl (Ondansetron Hcl 4 Mg/2 Ml Vial) 4 mg IVPUSH Q8H PRN PRN Reason: Nausea and Vomiting Sodium Chloride (0.9 % Sodium Chloride Flush 3 Ml Syringe) 3 ml IVFLUSH QSHIFT [facility] Home Medications Medication Instructions Recorded Confirmed Last Taken Type cholecalciferol (vitamin D3) 25 1 tab PO DAILY 07/05/21 10/14/22 Unknown History mcg (1,000 unit) tablet cyanocobalamin (vitamin B-12) 500 1 tab DAILY 07/05/21 10/14/22 Unknown History mcg tablet cetirizine 10 mg tablet 1 tab PO DAILY 07/23/21 10/14/22 Unknown History donepezil 5 mg tablet 5 mg PO DAILY 02/12/22 10/14/22 Unknown History Physical Exam Vital Signs and Narrative: Vital Signs: Last Vital Signs Temp 98.1 F 05/24/23 20:20 Pulse 73 05/24/23 20:20 Resp 16 05/24/23 20:20 BP 144/76 H 05/24/23 20:20 Pulse Ox 98 05/24/23 20:20 O2 Del Method Room Air 05/24/23 20:20 BMI result Body Mass Index 18.5 Elderly female lying in bed in no distress Neck supple, no JVD Regular rate and rhythm, S1-S2 heard Regular breath sounds bilaterally, no wheezing or crackles appreciated Abdomen soft nontender, no guarding, no rigidity Patient is awake, alert and oriented to self, place, time and person ; no focal motor deficit Psych: Normal mood No pedal edema Results Labs 05/24/23 17:24 05/24/23 17:24 Labs: Laboratory Results - last 24 hr 05/24/23 05/24/23 17:24 17:25 MCV 94.7 MCH 31.3 MCHC 33.0 RDW 12.8 Plt Count 178 MPV 10.3 Immature Gran % (Auto) 0.2 Neut % (Auto) 84.8 H Lymph % (Auto) 10.9 L Weakley % (Auto) 3.5 Eos % (Auto) 0.4 Baso % (Auto) 0.2 Lymph # (Auto) 0.5 L Weakley # (Auto) 0.2 Eos # (Auto) 0.0 Baso # (Auto) 0.0 Abs Immat Gran (auto) 0.01 Absolute Neuts (auto) 3.8 Absolute Nucleated RBC 0.000 Nucleated RBC % (auto) 0.0 Anion Gap 15 Estim Creat Clear Calc 30.1 Estimated GFR 45 Random Glucose 110 Calcium 9.6 Total Bilirubin 0.5 AST 18 ALT 14 Alkaline Phosphatase 82 Total Protein 8.0 Albumin 4.3 Lipase 15 COVID-19 (CAM) Negative COVID-19 Clin Com See Note Influenza Type A (SLOAN) Negative Influenza Type B (SLOAN) Negative Influenza A & B Note See Note Imaging Radiologist's Impressions: Impressions Chest X-Ray 05/24/23 17:18 IMPRESSION: Hyperinflated lungs with increased interstitial markings in both upper and both lower lobes. No acute consolidation or pleural effusion seen. Stable cyst right midlung. Assessment and Plan (1) Non-ST elevation [place] (NSTEMI): Status: Acute Plan This is a 77-year-old female with pertinent history of poorly differentiated carcinoma of liver on chemotherapy, non tuberculous mycobacterial infection of lung, gastroesophageal reflux disease who presents to the emergency department for evaluation of abdominal pain and found to have elevated troponin #. NSTEMI: Will admit patient with cardiac monitoring. IV heparin initiated in the ER. Appreciate cardiology assistance. Obtaining echocardiogram. Repeat troponin in a.m.. Patient given aspirin in the ER #. Poorly-differentiated carcinoma of the liver: Follows Dr. Mario as an outpatient and is on pembrolizumab #. 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 Is due for outpatient pulmonology follow-up #. Gastroesophageal reflux disease: On PPI Med rec pending DVT prophylaxis: Heparin Full code Admit as inpatient and will require two night minimum hospital stay for IV heparin, cardiac monitoring (as above), which is not possible in a lesser acute setting. Specialist consult pending Quality Stroke Does the patient have a stroke diagnosis?: No VTE Prior VTE?: No VTE Risk Level:: Medical - moderate - high VTE Device Contraindication: Treatment Not Indicated VTE Drug Contraindication: N/A - Med Ordered
[2023-05-24] MEDS: Heparin Sodium,Porcine/1/2NS 25,000 UNIT/250 ML IV.SOLN 5.52 UNIT IVCONT (22:20)
[2023-05-24] MEDS: Aspirin 81 MG TAB.CHEW 324 MG PO (22:21)
[2023-05-24] MEDS: Heparin Sodium,Porcine 5,000 UNIT/ML VIAL 2800 UNIT IVPUSH (22:21)
[2023-05-24 22:24] VITALS: BP 143/78; PULSE 67; RESP 20; TEMP 36.9; O2SAT 97
[2023-05-24 22:27] LABS: Prothrombin Time 11.8 SEC (11.1-13.3)
[2023-05-24 22:29] LABS: PTT Heparin Drip 29.8 SEC (53-77.9)
[2023-05-25] VITALS (7 sets, daily range): BP systolic 100–142; BP diastolic 57–88; PULSE 54–75; RESP 14–18; TEMP 36.1–37.3; O2SAT 95–98; BMI 18.5
[2023-05-25 04:50] LABS: PTT Heparin Drip 64.3 SEC (53-77.9)
--- NOTE | 2023-05-25 07:00 | CA_ITS ---
Transthoracic Echocardiogram Patient (Last, First, Middle): Crystal Avila, Gender: Female Date of : 1945 Age: 77 Procedure Date: 05/25/2023 Procedure Type: Transthoracic Echocardiogram Location: S3E Height: 157.48 cm Weight: 45.81 kg BSA: 1.43 m2 Heart Rate: 69 bpm BP: 142 / 63 mmHg Lace Inspector: SB Referring MD: Natan Martinez MD Symptoms: NSTEMI Study Quality: Adequate ECG Rhythm: Sinus Conclusions: - The left ventricular systolic function is mild to moderately decreased. The visually estimated ejection fraction is between 40-45%. - The inferoseptal wall, anterolateral wall, inferolateral wall, the basal inferior, basal anterior, mid anterior, and mid inferior segments are hypokinetic. - No obvious valvular pathology seen on this study. Findings Left Ventricle Normal left ventricular cavity size. The left ventricular systolic function is mild to moderately decreased. The visually estimated ejection fraction is between 40-45%. There is evidence of regional wall motion abnormalities. Evidence suggests grade I (mild) diastolic dysfunction. Wall Motion Rest Echo Findings The inferoseptal wall, anterolateral wall, inferolateral wall, the basal inferior, basal anterior, mid anterior, and mid inferior segments are hypokinetic. Right Ventricle Normal right ventricular cavity size and systolic function. Atria The left atrium is normal in size. The right atrium is mildly dilated. Aortic Valve There is a normal trileaflet aortic valve. There is no aortic valve stenosis. There is mild aortic valve regurgitation. Mitral Valve The mitral valve appears normal. There is no mitral valve regurgitation. There is no mitral valve stenosis. Pulmonic Valve The pulmonic valve is likely normal. Tricuspid Valve Normal tricuspid valve structure. There is mild tricuspid valve regurgitation. There is no evidence of pulmonary hypertension. Great Vessels The asc aorta is normal in size. Venous The inferior vena cava is normal in size and collapses greater than 50% with inspiration. Pericardium/Pleural There is no evidence of pericardial effusion. Prior Study Comparison No prior study available for comparison. Recommendations, Care & Conclusions No obvious valvular pathology seen on this study. Measurements 2D Linear Measurements IVSd: 0.85 0.6-0.9/0.6-1.0 cm LVIDd: 4.36 3.9-5.3/4.2-5.9 cm LVIDd Index: 3.05 2.4-3.2/2.2-3.1 cm/m2 LVIDs: 3.22 2.0-3.6 cm LVPWd: 0.41 0.7-1.1 cm LA Diam: 2.40 2.7-3.8/3.0-4.0 cm LAIDs Index: 1.68 1.5-2.3 cm/m2 LV Mass: 97.82 67-162/88-224 g LV Mass Index: 68.40 43-95/49-115 g/m2 LVOT Diam: 2.10 3.0+(-)1.3 cm 2D Systolic Function EF 4C: 42.20 >55% EF 2C: 55.50 >55% EF BiP: 49.20 >55% Mitral Valve MV Pk E: 0.55 MV PK A: 0.69 MV Decel Time: 176.00 E/A: 0.80 E'Lateral: 5.03 E'Medial: 3.75 E/E' Med: 14.50 E/E' Lat: 10.80 PHT: 51.00 MVA PHT: 4.31 Decel Freeborn: 3.10 Aortic Valve AoV Pk Edgar: 0.92 AoV Mn Edgar: 0.70 AoV VTI: 0.20 AoV Pk Grad: 3.00 Aov Mn Grad: 2.00 ANGELA Cont.VTI: 2.56 AI Pk Edgar: 3.39 AI Freeborn: 1.75 LVOT LVOT Pk Edgar: 0.72 LVOT Mn Edgar: 0.52 LVOT VTI: 0.15 LVOT Pk Grad: 2.00 LVOT Mn Grad: 1.00 LVOT Diam: 2.10 LVOT Area: 3.46 Diastolic Function MV Pk E: 0.55 MV Pk A: 0.69 E/A: 0.80 E'Medial: 3.75 E/E' Med: 14.50 E' Laterial: 5.03 E/E' Lat: 10.80 Right Ventricle TAPSE (mm): 30.90 TVS' Edgar: 15.80 Tricuspid Valve TR Pk Edgar: 2.19 TR Pk Grad: 19.00 RA Press: 3.00 RVSP: 22.00 Great Vessels Aorta Sinus of Valsalva: 3.10 2.0-3.5 cm Ao Asc: 2.80 2.1-3.4 cm Pulmonary Veins Pulm Vein S/D 2.70 Pulmonary Valve PV Pk Edgar: 0.79 Peak PV Grad: 3.00 Updated in Other Vendor System with Status of Final Ga Bowman MD electronically signed on 05/25/2023 10:49:23 AM with status of Final
[2023-05-25 07:26] LABS: MANUAL DIFF FLAG NO
[2023-05-25 07:39] LABS: Basophils Percent Auto 0.3 % (0-2); Eosinophils Percent Auto 0.8 % (0-4); Hematocrit 32.1 % (37.0-47.0); Hemoglobin 10.6 g/dl (12.0-16.0); Hemoglobin 10.7 g/dl (12.0-16.0); Imm Gran Abs Auto 0.01 X10*3/uL (0.00-0.03); Imm Gran Pct Auto 0.3 % (0.0-0.4); Lymphocytes Absolute Auto 0.9 X10*3/uL (1.2-4.9); Lymphocytes Percent Auto 23.2 % (20-40); Mean Corpuscular HGB Conc 33.4 g/dl (31.0-35.0); Mean Corpuscular Hemoglobin 31.5 pg (27.0-33.0); Mean Corpuscular Volume 94.1 fL (80.0-98.0); Mean Corpuscular Volume 95.3 fL (80.0-98.0); Mean Platelet Volume 10.3 fL (9.4-12.3); Mean Platelet Volume 10.4 fL (9.4-12.3); Monocytes Absolute Auto 0.3 X10*3/uL (0.1-1.2); Monocytes Percent Auto 6.6 % (2-11); Neutrophils Absolute Auto 2.7 x10*3/uL (2.0-8.3); Neutrophils Percent Auto 68.8 % (45-73); Platelet Count 174 X10*3/uL (160-400); Platelet Count 177 X10*3/uL (160-400); Red Blood Count 3.37 X10*6/uL (4.20-5.50); Red Cell Distribution Width 12.6 % (11.0-16.0); White Blood Count 3.6 X10*3/uL (4.8-10.8); White Blood Count 3.9 X10*3/uL (4.8-10.8)
[2023-05-25 07:42] LABS: Prothrombin Time 12.1 SEC (11.1-13.3)
[2023-05-25 07:56] LABS: Anion Gap 12 (12-20); Blood Urea Nitrogen 21 mg/dL (9-16); Calcium 9.5 mg/dL (8.4-10.2); Carbon Dioxide 28 mmol/L (22-29); Chloride 104 mmol/L (96-108); Creatinine Clr Calc Pharmacy 31.8; Estimated Glomerular Filt Rate 48; Glucose Random 86 mg/dL (60-115); Potassium 3.9 mmol/L (3.3-5.1); Sodium 140 mmol/L (135-145)
[2023-05-25 08:11] LABS: Troponin-I High Sensitivity 571.1 ng/L (<3.5-17.0)
--- NOTE | 2023-05-25 08:44 | HO.PM.IMPN ---
Subjective Subjective Date of Service: 05/25/23 <Susy Coelho - Last Filed: 05/25/23 09:40> 05/25/23 <Dhiraj Pimentel MD - Last Filed: 05/25/23 11:12> Interval History: Patient reports she is feeling well this morning. She denies chest pain, SOB, palpitations, epigastric pain, nausea/vomiting/diaphoresis, radiating arm/jaw pain. <Susy Coelho - Last Filed: 05/25/23 09:40> she is feeling well this morning. Has no chest pain, SOB, palpitations, epigastric pain, nausea/vomiting/diaphoresis, radiating arm/jaw pain. <Dhiraj Pimentel MD - Last Filed: 05/25/23 11:12> Review of Systems Review of Systems: Yes all other systems are reviewed and are negative <Susykira Coelho - Last Filed: 05/25/23 09:40> Physical Exam Vital Signs: Vital Signs: Last Vital Signs Temp 98.6 F 05/25/23 07:45 Pulse 60 05/25/23 07:45 Resp 15 05/25/23 07:45 BP 119/64 05/25/23 07:45 Pulse Ox 97 05/25/23 07:45 O2 Del Method Room Air 05/25/23 07:45 BMI result Body Mass Index 18.5 <Susy Jason Coelho - Last Filed: 05/25/23 09:40> Constitutional: A&O x 3, patient resting comfortably and in no acute distress CV: RRR, no appreciable murmur, no lower extremity edema, peripheral pulses 2+ Pulm: No rales, rhonchi, wheezes. Neuro: grossly intact Psych: appropriate behavior/affect <Susykira Coelho - Last Filed: 05/25/23 09:40> Objective Data Active Medications Acetaminophen (Acetaminophen 325 Mg Tablet) 650 mg PO Q6H PRN PRN Reason: Pain, Mild (Pain Scale 1-3) Aspirin (Aspirin Enteric Coated 81 Mg Tablet.Dr) 81 mg PO DAILY [facility] Atorvastatin Calcium (Atorvastatin Calcium 40 Mg Tablet) 40 mg PO DAILY [facility] Heparin Sodium (Porcine) (Heparin Sodium,Porcine 5,000 Unit/Ml Vial) 1,800 unit 40 unit/kg (1800 unit) IVPUSH PROTOCOL BOLUS PRN; Protocol PRN Reason: 40 unit/kg - Heparin Protocol Heparin Sodium (Porcine) (Heparin Sodium,Porcine 5,000 Unit/Ml Vial) 3,700 unit 80 unit/kg (3700 unit) IVPUSH PROTOCOL BOLUS PRN; Protocol PRN Reason: 80 unit/kg - Heparin Protocol Heparin Sodium/Sodium Chloride (Heparin Sodium,Porcine/1/2ns) 25,000 unit in 250 mls @ 0 mls/hr IVCONT .Q0M [facility]; Protocol Last Titration: 05/25/23 05:02 Dose: 12 units/kg/hr, 5.52 mls/hr Documented By: ANIKET Co-signed By: RANJIT Melatonin (Melatonin 3 Mg Tablet) 6 mg PO BEDTIME PRN PRN Reason: Insomnia Metoprolol Tartrate (Metoprolol Tartrate 12.5 Mg Halftab) 12.5 mg PO BID [facility]; Protocol Ondansetron HCl (Ondansetron Hcl 4 Mg/2 Ml Vial) 4 mg IVPUSH Q8H PRN PRN Reason: Nausea and Vomiting Sodium Chloride (0.9 % Sodium Chloride Flush 3 Ml Syringe) 3 ml IVFLUSH QSHIFT [facility] Last Admin: 05/25/23 06:57 Dose: Not Given Documented By: DARYL Non-Admin Reason: IV Running <Susy Coelho - Last Filed: 05/25/23 09:40> Labs CBC & Chem 7: 05/25/23 06:17 05/25/23 06:17 <Susy Coelho - Last Filed: 05/25/23 09:40> Labs: Laboratory Results - last 24 hr 05/24/23 05/24/23 05/24/23 17:24 17:25 22:10 MCV 94.7 MCH 31.3 MCHC 33.0 RDW 12.8 Plt Count 178 MPV 10.3 Immature Gran % (Auto) 0.2 Neut % (Auto) 84.8 H Lymph % (Auto) 10.9 L Banks % (Auto) 3.5 Eos % (Auto) 0.4 Baso % (Auto) 0.2 Lymph # (Auto) 0.5 L [place] # (Auto) 0.2 Eos # (Auto) 0.0 Baso # (Auto) 0.0 Abs Immat Gran (auto) 0.01 Absolute Neuts (auto) 3.8 Absolute Nucleated RBC 0.000 Nucleated RBC % (auto) 0.0 PT 11.8 INR 1.0 aPTT Heparin Protocol 29.8 L Anion Gap 15 Estim Creat Clear Calc 30.1 Estimated GFR 45 Random Glucose 110 Calcium 9.6 Total Bilirubin 0.5 AST 18 ALT 14 Alkaline Phosphatase 82 Total Protein 8.0 Albumin 4.3 Lipase 15 COVID-19 (CAM) Negative COVID-19 Clin Com See Note Influenza Type A (SLOAN) Negative Influenza Type B (SLOAN) Negative Influenza A & B Note See Note 05/25/23 05/25/23 05/25/23 04:34 06:17 06:17 MCV 95.3 94.1 MCH 31.5 MCHC RDW Plt Count MPV Immature Gran % (Auto) Neut % (Auto) Lymph % (Auto) Banks % (Auto) Eos % (Auto) Baso % (Auto) Lymph # (Auto) Banks # (Auto) Eos # (Auto) Baso # (Auto) Abs Immat Gran (auto) Absolute Neuts (auto) Absolute Nucleated RBC Nucleated RBC % (auto) PT INR aPTT Heparin Protocol 64.3 D Anion Gap Estim Creat Clear Calc Estimated GFR Random Glucose Calcium Total Bilirubin AST ALT Alkaline Phosphatase Total Protein Albumin Lipase COVID-19 (CAM) COVID-19 Clin Com Influenza Type A (SLOAN) Influenza Type B (SLOAN) Influenza A & B Note 05/25/23 05/25/23 05/25/23 06:17 06:17 06:17 MCV MCH 31.5 MCHC 33.0 33.4 RDW 12.6 12.6 Plt Count 177 MPV Immature Gran % (Auto) Neut % (Auto) Lymph % (Auto) Banks % (Auto) Eos % (Auto) Baso % (Auto) Lymph # (Auto) Banks # (Auto) Eos # (Auto) Baso # (Auto) Abs Immat Gran (auto) Absolute Neuts (auto) Absolute Nucleated RBC Nucleated RBC % (auto) PT INR aPTT Heparin Protocol Anion Gap Estim Creat Clear Calc Estimated GFR Random Glucose Calcium Total Bilirubin AST ALT Alkaline Phosphatase Total Protein Albumin Lipase COVID-19 (CAM) COVID-19 Clin Com Influenza Type A (SLOAN) Influenza Type B (SLOAN) Influenza A & B Note 05/25/23 05/25/23 05/25/23 06:17 06:17 06:17 MCV MCH MCHC RDW Plt Count 174 MPV 10.4 10.3 Immature Gran % (Auto) 0.3 Neut % (Auto) 68.8 Lymph % (Auto) 23.2 Banks % (Auto) 6.6 Eos % (Auto) 0.8 Baso % (Auto) 0.3 Lymph # (Auto) 0.9 L [place] # (Auto) 0.3 Eos # (Auto) 0.0 Baso # (Auto) 0.0 Abs Immat Gran (auto) 0.01 Absolute Neuts (auto) 2.7 Absolute Nucleated RBC 0.000 0.000 Nucleated RBC % (auto) 0.0 PT INR aPTT Heparin Protocol Anion Gap Estim Creat Clear Calc Estimated GFR Random Glucose Calcium Total Bilirubin AST ALT Alkaline Phosphatase Total Protein Albumin Lipase COVID-19 (CAM) COVID-19 Clin Com Influenza Type A (SLOAN) Influenza Type B (SLOAN) Influenza A & B Note 05/25/23 06:17 MCV MCH MCHC RDW Plt Count MPV Immature Gran % (Auto) Neut % (Auto) Lymph % (Auto) Banks % (Auto) Eos % (Auto) Baso % (Auto) Lymph # (Auto) Banks # (Auto) Eos # (Auto) Baso # (Auto) Abs Immat Gran (auto) Absolute Neuts (auto) Absolute Nucleated RBC Nucleated RBC % (auto) 0.0 PT 12.1 INR 1.0 aPTT Heparin Protocol Anion Gap 12 Estim Creat Clear Calc 31.8 Estimated GFR 48 Random Glucose 86 Calcium 9.5 Total Bilirubin AST ALT Alkaline Phosphatase Total Protein Albumin Lipase COVID-19 (CAM) COVID-19 Clin Com Influenza Type A (SLOAN) Influenza Type B (SLOAN) Influenza A & B Note <Susy Coelho - Last Filed: 05/25/23 09:40> Assessment and Plan (1) Non-ST elevation SD (NSTEMI): Status: Acute <Susy Coelho - Last Filed: 05/25/23 09:40> (2) Nontuberculous mycobacterial disease of lung: Status: Acute <Susy Coelho - Last Filed: 05/25/23 09:40> Assessment and Plan: 77-year-old female with pertinent history of 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 NSTEMI: - Continue cardiac monitoring. - Continue aspirin? - Begin metoprolol 12.5mg and Lipitor 40mg (LFT within normal limits). Follow LFTs - Troponin continues to trend up -- Consult cardiology. Echo ordered. Poorly-differentiated carcinoma of the liver: Follow up with Dr. Mario outpatient (on pembrolizumab). Non tuberculous mycobacterial infection of the lung: Continue ethambutol and azithromycin 3 times a week. Follow up outpatient with pulmonology. 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 NSTEMI: - Continue cardiac monitoring. - Continue aspirin - Begin metoprolol 12.5mg and Lipitor 40mg (LFT within normal limits). Follow LFTs - Troponin continues to trend up -- Consult cardiology to assess for need for cath. Echo today -IV Heparin for 48 to 72 hrs - Poorly-differentiated carcinoma of the liver: Dr. Mario recommends CT of abd/pelvis and chest to assess progression of disease Non tuberculous mycobacterial infection of the lung: Continue ethambutol and azithromycin 3 times a week. Follow up outpatient with pulmonology on outpatient basis Gastroesophageal reflux disease: Continue famotidine and omeprazole DVT prophylaxis: Heparin Full code Need for inpatient: Acute SD on IV heparin and need for further testing <Dhiraj Pimentel MD - Last Filed: 05/25/23 11:12> Quality Stroke Does the patient have a stroke diagnosis?: No <Susy Coelho - Last Filed: 05/25/23 09:40> VTE Prior VTE?: No <Susy Coelho - Last Filed: 05/25/23 09:40> VTE Risk Level:: Medical - moderate - high <Susy Coelho - Last Filed: 05/25/23 09:40> VTE Device Contraindication: Treatment Not Indicated <Susy Coelho - Last Filed: 05/25/23 09:40> VTE Drug Contraindication: N/A - Med Ordered <Susy Coelho - Last Filed: 05/25/23 09:40>
[2023-05-25] MEDS: Atorvastatin Calcium 40 MG TABLET PO (08:59)
[2023-05-25] MEDS: Aspirin Enteric Coated 81 MG TABLET.DR PO (09:00)
[2023-05-25] MEDS: Metoprolol Tartrate 12.5 MG HALFTAB PO (09:00)
--- NOTE | 2023-05-25 09:30 | PHA.MEDREC ---
Pharmacy Consult ? Medication Reconciliation Pharmacy has completed the medication reconciliation. Pt gets their meds from [facility]. [facility] to confirm patient meds.
--- NOTE | 2023-05-25 09:56 | P.CONCA_ITS ---
History of Present Illness History of Present Illness Date of Service: 05/25/23 Chief complaint: Upper abdominal pain Narrative: This is a cardiology consultation regarding non ST-elevation myocardial infarction. She has a history of liver cancer on chemotherapy but according to her, it is well controlled. Current admissions because of discomfort in the chest as well as abdomen and she points to entire region between upper chest lower abdomen. That led to the ER visit when she was found have elevated troponins suggestive of non ST elevation myocardial infarction. She denies any prior history of coronary disease or myocardial infarction or cardiomyopathy or any other cardiac issues otherwise. Otherwise, she states she is generally feeling okay. Review of Systems 2 Review of Systems: Yes all other systems are reviewed and are negative Constitutional: Constitutional: Reports as per HPI and Reports no additional constitutional complaints Eyes: Eyes: Reports as per HPI and Denies no additional eye complaints ENT: Denies system reviewed and no additional complaints, except as documented and Reports as per HPI Cardiovascular: Cardiovascular: Reports as per HPI, Reports no additional cardiovascular complaints, Denies acrocyanosis, Denies cool extremities, Reports chest pain, Denies leg edema, Denies lightheadedness, Denies palpitations and Denies dyspnea Respiratory: Respiratory: Reports as per HPI, Denies no additional respiratory complaints and Denies dyspnea Gastrointestinal: Gastrointestinal: Reports as per HPI, Denies no additional gastrointestinal complaints and Reports abdominal pain Genitourinary: Genitourinary: Reports as per HPI Musculoskeletal: Musculoskeletal: Reports no additional musculoskeletal complaints and Reports as per HPI Integumentary/Breasts: Skin/Breast: Reports system reviewed and no additional complaints, except as docu Neurologic: Reports system reviewed and no additional complaints, except as documented and Reports as per HPI Psychiatric: Psychiatric: Reports no additional psychiatric complaints and Reports as per HPI Endocrine: Endocrine: Reports no additional endocrine complaints, Reports as per HPI and Denies palpitations Hematologic/Lymphatic: Hematologic/Lymphatic: Reports no additional hematologic/lymphatic complaints and Reports as per HPI Allergic/Immunologic: Allergic/Immunologic: Reports no additional allergic/immunologic complaints and Reports as per HPI [facility] Past Medical History Medical History Sore throat 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 Hemoptysis Lymphadenopathy Injury of right knee Elevated blood sugar Chronic renal failure Renal cyst Vitamin deficiency, unspecified Allergic rhinitis Depressive disorder Osteoarthritis Obesity HTN (hypertension) Anemia Family History Family History Father Cancer Mother Cancer Paternal Grandmother Cancer Surgical History Surgical History History of esophagogastroduodenoscopy (EGD) (~2017) History of section History of liver biopsy (~2021) Social History Social History Household Members: None Housing: Apartment Are you a primary pediatric care coordinator to a significant other at home: No Do you presently have visiting nurse or other home services: Yes Patient Tobacco Use Status: Never used Tobacco Use of substances other than those prescribed or required for medical reasons: No Currently Displaying Signs/Symptoms of Drug Intoxication Withdrawal: No Have you been hit, kicked, punched, or otherwise hurt by someone within the past year? If so, by whom?: No Do you feel safe in your current relationship?: Yes Is there a partner from a previous relationship who is making you feel unsafe now?: No Are you made to feel afraid or neglected: No Advance Directives: No Advance Directives Information Provided: Yes Do you have thoughts of harming others: None Do you have a plan to hurt others: No Plan Recently lost weight without trying: No Nutrition Risks: No Nutritional Risk Patient : No : No Poor oral hygiene: No service: No Current occupational status: retired and disabled Meds Allergies Allergy/AdvReac Type Severity Reaction Status Date / Time No Known Allergies Allergy Verified 12/07/22 10:19 [No Known Allergies*] Active Medications: Current Medications Acetaminophen (Acetaminophen 325 Mg Tablet) 650 mg PO Q6H PRN PRN Reason: Pain, Mild (Pain Scale 1-3) Aspirin (Aspirin Enteric Coated 81 Mg Tablet.) 81 mg PO DAILY [facility] Last Admin: 05/25/23 09:00 Dose: 81 mg Atorvastatin Calcium (Atorvastatin Calcium 40 Mg Tablet) 40 mg PO DAILY [facility] Last Admin: 05/25/23 08:59 Dose: 40 mg Azithromycin (Azithromycin 500 Mg Tablet) 500 mg PO MOWEFR@0900 [facility] Cyanocobalamin (Cyanocobalamin (Vitamin B-12) 500 Mcg Tablet) 500 mcg PO DAILY [facility] Donepezil HCl (Donepezil Hcl 5 Mg Tablet) 5 mg PO BEDTIME [facility] Famotidine (Famotidine 20 Mg Tablet) 40 mg PO BEDTIME [facility] Heparin Sodium (Porcine) (Heparin Sodium,Porcine 5,000 Unit/Ml Vial) 1,800 unit 40 unit/kg (1800 unit) IVPUSH PROTOCOL BOLUS PRN; Protocol PRN Reason: 40 unit/kg - Heparin Protocol Heparin Sodium (Porcine) (Heparin Sodium,Porcine 5,000 Unit/Ml Vial) 3,700 unit 80 unit/kg (3700 unit) IVPUSH PROTOCOL BOLUS PRN; Protocol PRN Reason: 80 unit/kg - Heparin Protocol Heparin Sodium/Sodium Chloride (Heparin Sodium,Porcine/1/2ns) 25,000 unit in 250 mls @ 0 mls/hr IVCONT .Q0M [facility]; Protocol Last Titration: 05/25/23 05:02 Dose: 12 units/kg/hr, 5.52 mls/hr Loratadine (Loratadine 10 Mg Tablet) 10 mg PO DAILY PRN PRN Reason: Allergy Symptoms Melatonin (Melatonin 3 Mg Tablet) 6 mg PO BEDTIME PRN PRN Reason: Insomnia Metoprolol Tartrate (Metoprolol Tartrate 12.5 Mg Halftab) 12.5 mg PO BID [facility]; Protocol Last Admin: 05/25/23 09:00 Dose: 12.5 mg Non-Formulary Medication (Ferrous Sulfate) 325 mg PO Q OTHER DAY [facility] Omeprazole (Omeprazole 40 Mg Capsule.Dr) 40 mg PO DAILY@0630 [facility] Ondansetron HCl (Ondansetron Hcl 4 Mg/2 Ml Vial) 4 mg IVPUSH Q8H PRN PRN Reason: Nausea and Vomiting Sodium Chloride (0.9 % Sodium Chloride Flush 3 Ml Syringe) 3 ml IVFLUSH QSHIFT [facility] Last Admin: 05/25/23 06:57 Dose: Not Given Vitamin D (Cholecalciferol (Vitamin D3) 25 Mcg Tablet) 25 mcg PO DAILY [facility] Home Medications Medication Instructions Recorded Confirmed Last Taken Type cholecalciferol (vitamin D3) 25 1 tab PO DAILY 07/05/21 05/25/23 05/24/23 History mcg (1,000 unit) tablet cyanocobalamin (vitamin B-12) 500 1 tab DAILY 07/05/21 05/25/23 05/24/23 History mcg tablet cetirizine 10 mg tablet 1 tab PO DAILY PRN Allergy Symptoms 07/23/21 05/25/23 Unknown History donepezil 5 mg tablet 5 mg PO BEDTIME 02/12/22 05/25/23 05/24/23 History azithromycin 500 mg tablet 500 mg PO MOWEFR@0900 05/25/23 05/25/23 05/24/23 History ferrous sulfate 325 mg (65 mg 325 mg PO Q OTHER DAY 05/25/23 05/25/23 05/24/23 History iron) tablet omeprazole 40 mg capsule,delayed 40 mg PO DAILY@0630 05/25/23 05/25/23 05/24/23 History release Physical Exam 2 Vital Signs: Vital Signs: Last Vital Signs Temp 98.6 F 05/25/23 07:45 Pulse 60 05/25/23 07:45 Resp 15 05/25/23 07:45 BP 119/64 05/25/23 07:45 Pulse Ox 97 05/25/23 07:45 O2 Del Method Room Air 05/25/23 07:45 BMI result Body Mass Index 18.5 Const: General: comfortable and no acute distress O rientation/consciousness: patient oriented x3 HEENT: Other: Unremarkable Head: Yes normal to inspection Neck: Neck: Yes normal visual inspection Chest: Chest palpation & inspection: normal inspection of the chest Resp: Auscultation: clear to auscultation bilaterally Cardio: Palpation: normal PMI Heart sounds: S1 normal heart sound present, S2 normal heart sound present, no gallops, no murmurs and no rubs GI: Palpation (GI): Soft to palpation Back/Spine/Pelvis: Other: unremarkable Skin: General skin exam: no rashes or lesions noted Neuro: General: patient oriented x3 Extrem: General: Yes normal to inspection Psych: Mental Status: mental status grossly normal Objective Labs and Meds 05/25/23 06:17 05/25/23 06:17 Lab results: Laboratory Results - last 24 hr 05/24/23 05/24/23 05/24/23 17:24 17:25 20:34 WBC 4.5 L RBC 3.42 L Hgb 10.7 L Hct 32.4 L MCV 94.7 MCH 31.3 MCHC 33.0 RDW 12.8 Plt Count 178 MPV 10.3 Immature Gran % (Auto) 0.2 Neut % (Auto) 84.8 H Lymph % (Auto) 10.9 L [place] % (Auto) 3.5 Eos % (Auto) 0.4 Baso % (Auto) 0.2 Lymph # (Auto) 0.5 L [place] # (Auto) 0.2 Eos # (Auto) 0.0 Baso # (Auto) 0.0 Abs Immat Gran (auto) 0.01 Absolute Neuts (auto) 3.8 Absolute Nucleated RBC 0.000 Nucleated RBC % (auto) 0.0 PT INR aPTT Heparin Protocol Sodium 138 Potassium 4.4 Chloride 104 Carbon Dioxide 23 Anion Gap 15 BUN 23 H Creatinine 1.17 Estim Creat Clear Calc 30.1 Estimated GFR 45 Random Glucose 110 Calcium 9.6 Total Bilirubin 0.5 AST 18 ALT 14 Alkaline Phosphatase 82 Troponin I High Sens 54.7 H* D 280.5 H* D Total Protein 8.0 Albumin 4.3 Lipase 15 COVID-19 (CAM) Negative COVID-19 Clin Com See Note Influenza Type A (SLOAN) Negative Influenza Type B (SLOAN) Negative Influenza A & B Note See Note 05/24/23 05/25/23 05/25/23 22:10 04:34 06:17 WBC 3.6 L RBC Hgb Hct MCV MCH MCHC RDW Plt Count MPV Immature Gran % (Auto) Neut % (Auto) Lymph % (Auto) [place] % (Auto) Eos % (Auto) Baso % (Auto) Lymph # (Auto) [place] # (Auto) Eos # (Auto) Baso # (Auto) Abs Immat Gran (auto) Absolute Neuts (auto) Absolute Nucleated RBC Nucleated RBC % (auto) PT 11.8 INR 1.0 aPTT Heparin Protocol 29.8 L 64.3 D Sodium Potassium Chloride Carbon Dioxide Anion Gap BUN Creatinine Estim Creat Clear Calc Estimated GFR Random Glucose Calcium Total Bilirubin AST ALT Alkaline Phosphatase Troponin I High Sens Total Protein Albumin Lipase COVID-19 (CAM) COVID-19 Clin Com Influenza Type A (SLOAN) Influenza Type B (SLOAN) Influenza A & B Note 05/25/23 05/25/23 05/25/23 06:17 06:17 06:17 WBC 3.9 L RBC 3.37 L 3.40 L Hgb 10.6 L 10.7 L Hct 32.1 L MCV MCH MCHC RDW Plt Count MPV Immature Gran % (Auto) Neut % (Auto) Lymph % (Auto) [place] % (Auto) Eos % (Auto) Baso % (Auto) Lymph # (Auto) [place] # (Auto) Eos # (Auto) Baso # (Auto) Abs Immat Gran (auto) Absolute Neuts (auto) Absolute Nucleated RBC Nucleated RBC % (auto) PT INR aPTT Heparin Protocol Sodium Potassium Chloride Carbon Dioxide Anion Gap BUN Creatinine Estim Creat Clear Calc Estimated GFR Random Glucose Calcium Total Bilirubin AST ALT Alkaline Phosphatase Troponin I High Sens Total Protein Albumin Lipase COVID-19 (CAM) COVID-19 Clin Com Influenza Type A (SLOAN) Influenza Type B (SLOAN) Influenza A & B Note 05/25/23 05/25/23 05/25/23 06:17 06:17 06:17 WBC RBC Hgb Hct 32.0 L MCV 95.3 94.1 MCH 31.5 31.5 MCHC 33.0 RDW Plt Count MPV Immature Gran % (Auto) Neut % (Auto) Lymph % (Auto) [place] % (Auto) Eos % (Auto) Baso % (Auto) Lymph # (Auto) [place] # (Auto) Eos # (Auto) Baso # (Auto) Abs Immat Gran (auto) Absolute Neuts (auto) Absolute Nucleated RBC Nucleated RBC % (auto) PT INR aPTT Heparin Protocol Sodium Potassium Chloride Carbon Dioxide Anion Gap BUN Creatinine Estim Creat Clear Calc Estimated GFR Random Glucose Calcium Total Bilirubin AST ALT Alkaline Phosphatase Troponin I High Sens Total Protein Albumin Lipase COVID-19 (CAM) COVID-19 Clin Com Influenza Type A (SLOAN) Influenza Type B (SLOAN) Influenza A & B Note 05/25/23 05/25/23 05/25/23 06:17 06:17 06:17 WBC RBC Hgb Hct MCV MCH MCHC 33.4 RDW 12.6 12.6 Plt Count 177 174 MPV 10.4 Immature Gran % (Auto) Neut % (Auto) Lymph % (Auto) [place] % (Auto) Eos % (Auto) Baso % (Auto) Lymph # (Auto) [place] # (Auto) Eos # (Auto) Baso # (Auto) Abs Immat Gran (auto) Absolute Neuts (auto) Absolute Nucleated RBC Nucleated RBC % (auto) PT INR aPTT Heparin Protocol Sodium Potassium Chloride Carbon Dioxide Anion Gap BUN Creatinine Estim Creat Clear Calc Estimated GFR Random Glucose Calcium Total Bilirubin AST ALT Alkaline Phosphatase Troponin I High Sens Total Protein Albumin Lipase COVID-19 (CAM) COVID-19 Clin Com Influenza Type A (SLOAN) Influenza Type B (SLOAN) Influenza A & B Note 05/25/23 05/25/23 05/25/23 06:17 06:17 06:17 WBC RBC Hgb Hct MCV MCH MCHC RDW Plt Count MPV 10.3 Immature Gran % (Auto) 0.3 Neut % (Auto) 68.8 Lymph % (Auto) 23.2 [place] % (Auto) 6.6 Eos % (Auto) 0.8 Baso % (Auto) 0.3 Lymph # (Auto) 0.9 L [place] # (Auto) 0.3 Eos # (Auto) 0.0 Baso # (Auto) 0.0 Abs Immat Gran (auto) 0.01 Absolute Neuts (auto) 2.7 Absolute Nucleated RBC 0.000 0.000 Nucleated RBC % (auto) 0.0 0.0 PT 12.1 INR 1.0 aPTT Heparin Protocol Sodium 140 Potassium 3.9 Chloride 104 Carbon Dioxide 28 Anion Gap 12 BUN 21 H Creatinine 1.11 Estim Creat Clear Calc 31.8 Estimated GFR 48 Random Glucose 86 Calcium 9.5 Total Bilirubin AST ALT Alkaline Phosphatase Troponin I High Sens 571.1 H* D Total Protein Albumin Lipase COVID-19 (CAM) COVID-19 Clin Com Influenza Type A (SLOAN) Influenza Type B (SLOAN) Influenza A & B Note ECG Interpretation: EKG with sinus rhythm at 62/Min; incomplete right bundle-branch block; PACs; nonspecific ST-T changes. Overall, similar to prior. Imaging Radiologist's impression: Impressions Chest X-Ray 05/24/23 17:18 IMPRESSION: Hyperinflated lungs with increased interstitial markings in both upper and both lower lobes. No acute consolidation or pleural effusion seen. Stable cyst right midlung. Assessment and Plan (1) Non-ST elevation [place] (NSTEMI): Status: Acute Plan High sensitivity troponin levels are 54, 280 and 571. Overall, clearly suggestive of non ST elevation myocardial infarction. Discussed with Dr. Mario, patient's oncologist. She stated that we can repeat a CT scan chest/abdomen/pelvis to reassess her cancer status. If there is no change from prior, then no contraindications for cardiac catheterization. Also, according to her there is no contraindication for dual antiplatelet therapy including aspirin/Brilinta. For now, keep on IV heparin drip. Aspirin, beta-blockers, statins. Echocardiogram will be reviewed once completed. Discussed with Dr. Pimentel. Procedures Date of Service Date of Service: 05/25/23
[2023-05-25] MEDS: Omeprazole 40 MG CAPSULE.DR PO (10:13)
[2023-05-25] MEDS: Cyanocobalamin (Vitamin B-12) 500 MCG TABLET PO (10:14)
[2023-05-25] MEDS: Cholecalciferol (Vitamin D3) 25 MCG TABLET PO (10:14)
[2023-05-25] MEDS: Ferrous Sulfate 324 MG TABLET.DR PO (10:14)
[2023-05-25 11:38] LABS: PTT Heparin Drip 52.1 SEC (53-77.9)
[2023-05-25] MEDS: Heparin Sodium,Porcine 5,000 UNIT/ML VIAL 1800 UNIT IVPUSH (12:16)
--- NOTE | 2023-05-25 13:19 | MHC.CM.PN ---
Addendum entered by Linda Young RN 05/25/23 13:27: PER [facility] PATIENT WAS D/C'D FROM SERVICES LAST WEEK. WILL ACCEPT BACK IF NEEDED. Original Note: IMM DELIVERED. PATIENT IS FROM HOME ALONE. 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 ACTIVE W/ [facility] FOR SN/PT. CONFIRMED W/ [facility]. AMBULATES W/ A WHEELED WALKER AND IS INDP. W/ HYGIENE. HOME EXTENSION AGENT ASSISTS W/ COOKING, CLEANING, ERRANDS, ETC. DX LIVER CANCER, STATES SHE GETS CHEMO 1X MONTHLY AT [facility] [place], LAST APPT WAS 04/27/23. PCP: DARÍO AMATO MD HCP: DAUGHTER KYRA. ON FILE AND VERIFIED. DP: GOAL IS HOME, RESUME SERVICES. [facility] DAUGHTER OR DAUGHTER'S FRIEND CAN TRANSPORT. CM WILL CONTINUE TO FOLLOW FOR DC NEEDS.
[2023-05-25 18:52] LABS: PTT Heparin Drip 67.1 SEC (53-77.9)
[2023-05-25] MEDS: Donepezil HCl 5 MG TABLET PO (20:06)
[2023-05-25] MEDS: Famotidine 20 MG TABLET 40 MG PO (20:06)
[2023-05-25] MEDS: Heparin Sodium,Porcine/1/2NS 25,000 UNIT/250 ML IV.SOLN 6.44 UNIT IVCONT (22:31)
[2023-05-26 00:44] LABS: PTT Heparin Drip 71.8 SEC (53-77.9)
[2023-05-26 03:24] VITALS: BP 121/70; PULSE 66; RESP 18; TEMP 36.2; O2SAT 98
[2023-05-26] MEDS: Omeprazole 40 MG CAPSULE.DR PO (05:45)
[2023-05-26 07:26] VITALS: BP 112/60; PULSE 62; RESP 18; TEMP 36.6; O2SAT 96
[2023-05-26] MEDS: 0.9 % Sodium Chloride Flush 3 ML SYRINGE IVFLUSH ×2 (08:53→15:42)
[2023-05-26] MEDS: Metoprolol Tartrate 12.5 MG HALFTAB PO (08:53)
[2023-05-26] MEDS: Atorvastatin Calcium 40 MG TABLET PO (08:53)
[2023-05-26] MEDS: Azithromycin 500 MG TABLET PO (08:54)
[2023-05-26] MEDS: Cholecalciferol (Vitamin D3) 25 MCG TABLET PO (08:54)
[2023-05-26] MEDS: Aspirin Enteric Coated 81 MG TABLET.DR PO (08:54)
[2023-05-26] MEDS: Cyanocobalamin (Vitamin B-12) 500 MCG TABLET PO (08:54)
--- NOTE | 2023-05-26 08:58 | P.PNIM_ITS ---
Subjective Subjective Date of Service: 05/26/23 <Susy Coelho - Last Filed: 05/26/23 09:06> 05/26/23 <Dhiraj Pimentel MD - Last Filed: 05/26/23 11:09> Interval History: Feels well today. No chest pain, SOB, epigastric/abdominal pain. <Susy Coelho - Last Filed: 05/26/23 09:06> Review of Systems Review of Systems: Yes all other systems are reviewed and are negative <Susy Coelho - Last Filed: 05/26/23 09:06> Physical Exam 2 Vital Signs: Vital Signs: Last Vital Signs Temp 97.9 F 05/26/23 07:26 Pulse 62 05/26/23 07:26 Resp 18 05/26/23 07:26 BP 112/60 05/26/23 07:26 Pulse Ox 96 05/26/23 07:26 O2 Del Method Room Air 05/26/23 07:26 BMI result Body Mass Index 18.5 <Susy Coelho - Last Filed: 05/26/23 09:06> Constitutional: A&O x 3, patient resting comfortably and in no acute distress CV: RRR, no murmur, no lower extremity edema Abd: Soft, non distended, non tender Pulm: No rales, rhonchi, wheezes. Neuro: grossly intact Psych: appropriate behavior/affect <Susy Coelho - Last Filed: 05/26/23 09:06> Objective Data Active Medications Acetaminophen (Acetaminophen 325 Mg Tablet) 650 mg PO Q6H PRN PRN Reason: Pain, Mild (Pain Scale 1-3) Aspirin (Aspirin Enteric Coated 81 Mg Tablet.) 81 mg PO DAILY [facility] Last Admin: 05/26/23 08:54 Dose: 81 mg Documented By: DARYL Atorvastatin Calcium (Atorvastatin Calcium 40 Mg Tablet) 40 mg PO DAILY [facility] Last Admin: 05/26/23 08:53 Dose: 40 mg Documented By: DARYL Azithromycin (Azithromycin 500 Mg Tablet) 500 mg PO MOWEFR@0900 [facility] Last Admin: 05/26/23 08:54 Dose: 500 mg Documented By: DARYL Cyanocobalamin (Cyanocobalamin (Vitamin B-12) 500 Mcg Tablet) 500 mcg PO DAILY [facility] Last Admin: 05/26/23 08:54 Dose: 500 mcg Documented By: DARYL Donepezil HCl (Donepezil Hcl 5 Mg Tablet) 5 mg PO BEDTIME [facility] Last Admin: 05/25/23 20:06 Dose: 5 mg Documented By: ANIKET Famotidine (Famotidine 20 Mg Tablet) 40 mg PO BEDTIME [facility] Last Admin: 05/25/23 20:06 Dose: 40 mg Documented By: ANIKET Ferrous Sulfate (Ferrous Sulfate 324 Mg Tablet.) 324 mg PO Q48H [facility] Last Admin: 05/25/23 10:14 Dose: 324 mg Documented By: DARYL Heparin Sodium (Porcine) (Heparin Sodium,Porcine 5,000 Unit/Ml Vial) 1,800 unit 40 unit/kg (1800 unit) IVPUSH PROTOCOL BOLUS PRN; Protocol PRN Reason: 40 unit/kg - Heparin Protocol Last Admin: 05/25/23 12:16 Dose: 1,800 unit Documented By: LINN Heparin Sodium (Porcine) (Heparin Sodium,Porcine 5,000 Unit/Ml Vial) 3,700 unit 80 unit/kg (3700 unit) IVPUSH PROTOCOL BOLUS PRN; Protocol PRN Reason: 80 unit/kg - Heparin Protocol Heparin Sodium/Sodium Chloride (Heparin Sodium,Porcine/1/2ns) 25,000 unit in 250 mls @ 0 mls/hr IVCONT .Q0M [facility]; Protocol Last Titration: 05/26/23 01:11 Dose: 14 units/kg/hr, 6.44 mls/hr Documented By: ANIKET Co-signed By: SRI Loratadine (Loratadine 10 Mg Tablet) 10 mg PO DAILY PRN PRN Reason: Allergy Symptoms Melatonin (Melatonin 3 Mg Tablet) 6 mg PO BEDTIME PRN PRN Reason: Insomnia Metoprolol Tartrate (Metoprolol Tartrate 12.5 Mg Halftab) 12.5 mg PO BID [facility]; Protocol Last Admin: 05/26/23 08:53 Dose: 12.5 mg Documented By: DARYL Omeprazole (Omeprazole 40 Mg Capsule.) 40 mg PO DAILY@0630 [facility] Last Admin: 05/26/23 05:45 Dose: 40 mg Documented By: ANIKET Ondansetron HCl (Ondansetron Hcl 4 Mg/2 Ml Vial) 4 mg IVPUSH Q8H PRN PRN Reason: Nausea and Vomiting Sodium Chloride (0.9 % Sodium Chloride Flush 3 Ml Syringe) 3 ml IVFLUSH QSHIFT [facility] Last Admin: 05/26/23 08:53 Dose: 3 ml Documented By: DARYL Vitamin D (Cholecalciferol (Vitamin D3) 25 Mcg Tablet) 25 mcg PO DAILY [facility] Last Admin: 05/26/23 08:54 Dose: 25 mcg Documented By: DARYL <Susy Coelho - Last Filed: 05/26/23 09:06> Labs CBC & Chem 7: 05/26/23 08:50 05/25/23 06:17 <Susy Coelho - Last Filed: 05/26/23 09:06> Labs: Laboratory Results - last 24 hr 05/25/23 05/25/23 05/26/23 11:13 18:13 00:30 aPTT Heparin Protocol 52.1 L 67.1 D 71.8 <Susy Coelho - Last Filed: 05/26/23 09:06> Assessment and Plan (1) Non-ST elevation [place] (NSTEMI): Status: Acute <Susy Coelho - Last Filed: 05/26/23 09:06> (2) Nontuberculous mycobacterial disease of lung: Status: Acute <Susy Melaramarlin - Last Filed: 05/26/23 09:06> Assessment and Plan: 77-year-old female with pertinent history of 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 NSTEMI: - Continue cardiac monitoring. - Continue aspirin, metoprolol and Lipitor. Repeat LFTs with pt hx of liver cancer and on statin - Cardiology discussed case with Dr. Mario (oncologist). CT showed stable disease, plan for cath and subsequent ASA/Brillinta - IV Heparin for 48 to 72 hrs Poorly-differentiated carcinoma of the liver: CT on 05/25/2023 shows stable disease Non tuberculous mycobacterial infection of the lung: Continue ethambutol and azithromycin 3 times a week. 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 NSTEMI: - Continue cardiac monitoring. - Continue aspirin, metoprolol and Lipitor. Repeat LFTs with pt hx of liver cancer and on statin - Cardiology discussed case with Dr. Mario (oncologist). CT showed stable disease, plan for cath and subsequent ASA/Brillinta - IV Heparin for 48 to 72 hrs Poorly-differentiated carcinoma of the liver: CT on 05/25/2023 shows stable disease Non tuberculous mycobacterial infection of the lung: Continue ethambutol and azithromycin 3 times a week. Follow up with pulmonology on outpatient basis Gastroesophageal reflux disease: Continue famotidine and omeprazole DVT prophylaxis: Heparin Full code Need for inpatient: Acute [place] on IV heparin and need for cath Dispo: [facility] [place] for cardiac cath <Dhiraj Pimentel MD - Last Filed: 05/26/23 11:09> Quality Stroke Does the patient have a stroke diagnosis?: No <Susy Coelho - Last Filed: 05/26/23 09:06> VTE Prior VTE?: No <Susy Coelho - Last Filed: 05/26/23 09:06> VTE Risk Level:: Medical - moderate - high <Susy Coelho - Last Filed: 05/26/23 09:06> VTE Device Contraindication: Treatment Not Indicated <Susy Coelho - Last Filed: 05/26/23 09:06> VTE Drug Contraindication: N/A - Med Ordered <Susy Coelho - Last Filed: 05/26/23 09:06>
--- NOTE | 2023-05-26 09:24 | PM.DS ---
DS: Providers Provider Date of Service: 05/26/23 <Susy Coelho - Last Filed: 05/26/23 09:54> Date of admission: 05/24/23 21:51 <Susy Coelho - Last Filed: 05/26/23 09:54> Primary care physician: Jefferson Sosa MD <Susy Coelho - Last Filed: 05/26/23 09:54> Consults: 05/24/23 21:53 Consult to Cardiology Routine Consulting Provider: [facility] [place] [facility] Reason for consultation: NSTEMI Has provider been notified: Yes <Susy Coelho - Last Filed: 05/26/23 09:54> DS: Diagnosis Discharge Diagnosis (1) Non-ST elevation [place] (NSTEMI): Status: Acute <Susy Coelho - Last Filed: 05/26/23 09:54> (2) Nontuberculous mycobacterial disease of lung: Status: Acute <Susy Coelho - Last Filed: 05/26/23 09:54> DS: Summary Hospital Course Hospital Course: Admitting HPI: Date of Service: 05/24/23 Chief Complaint: Abdominal pain This is a 77-year-old female with pertinent history of 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 Patient states she started having upper abdominal discomfort on the day of presentation. It was worse with movement and relieved with rest. No association with p.o. intake. No nausea, vomiting or sweating. It radiated to the shoulders. No cough. States she is compliant with her medications. No dyspnea, orthopnea, PND, palpitations, changes in urinary or bowel habits. In the emergency department, troponin was found to be elevated and Cardiology was consulted who requested admission with IV heparin. Hospital Course: This 77 yo F with medical history of poorly differentiated carcinoma of liver on chemotherapy, non-TB mycobacterial infection of the lung, and GERD, presented to the ED for evaluation of abdominal pain that started on 05/24/23. It was worse with movement, better with rest, and radiated to the shoulders. She denied nausea, vomiting, PND, SOB, orthopnea, palpitations, or changes in bowel habits. Was found to have initial troponin was 54.7 with a repeat of 280.5 and an abnormal ECG. She received aspirin in the ED. Patient was admitted for NSTEMI and started on IV heparin. Patient was started on metoprolol, lipitor, and aspirin. Garment Mender Dr. Bowman discussed case with patient oncologist Dr. Mario who recommended repeat CT chest/abd/pelvis to reassess cancer status, which if stable would make patient eligible for cardiac catheterization. Dr. Mario also reported no contraindication for dual antiplatelet therapy including aspirin/Brillinta. CT on 05/25/23 showed no significant changes from prior imaging. Echo showed decreased systolic function with ejection fraction of 40-45% as well as hypokinetic areas of the inferoseptal wall, anterolateral wall, inferolateral wall, the basal inferior, basal anterior, mid anterior, and mid inferior segments. She is currently feeling well. Per Dr. Bowman, will continue current metoprolol, lipitor, aspirin regimen and transfer to [facility] for catheterization. She remains on iv heparin started on 05/24/23 at 21.30 Poorly-differentiated carcinoma of the liver, CT of abdomen and Pelvis on 05/25/23 show stable or slightly better disease: Follow with Dr. aMrio. Non tuberculous mycobacterial infection of the lung: Continue ethambutol and azithromycin 3 times a week. Follow up with pulmonology on outpatient basis Gastroesophageal reflux disease: continue PPI <Susy Coelho - Last Filed: 05/26/23 09:54> Status at Discharge Functional status at discharge: independent ambulation <Susy Coelho - Last Filed: 05/26/23 09:54> Overall status at discharge: patient is back to baseline <Susy Coelho - Last Filed: 05/26/23 09:54> Time Attestation Discharge coordination time: Greater than 30 minutes <Susy Coelho - Last Filed: 05/26/23 09:54> Quality: Safe Use of Opioids Does Pt have an Active Cancer Diagnosis on the Problem List?: Yes <Susy Coelho - Last Filed: 05/26/23 09:54> Opioid Measure Date for [facility] Report: 04/26/23 <Susy Coelho - Last Filed: 05/26/23 09:54> 04/26/23 <Dhiraj Pimentel MD - Last Filed: 05/26/23 11:13> Opioid Measure Time for [facility] Report: 09:49 <Susy Coelho - Last Filed: 05/26/23 09:54> 11:10 <Dhiraj Pimentel MD - Last Filed: 05/26/23 11:13> Quality: Stroke Does the patient have a stroke diagnosis?: No <Susy Coelho - Last Filed: 05/26/23 09:54> Physical Exam Vital Signs: Vital Signs: Last Vital Signs Temp 97.9 F 05/26/23 07:26 Pulse 62 05/26/23 07:26 Resp 18 05/26/23 07:26 BP 112/60 05/26/23 07:26 Pulse Ox 96 05/26/23 07:26 O2 Del Method Room Air 05/26/23 07:26 BMI result Body Mass Index 18.5 <Susy Coelho - Last Filed: 05/26/23 09:54> Constitutional: A&O x 3, patient resting comfortably and in no acute distress CV: RRR, no murmur, no lower extremity edema Abd: Soft, non distended, non tender Pulm: No rales, rhonchi, wheezes. Neuro: grossly intact Psych: appropriate behavior/affect <Susy Coelho - Last Filed: 05/26/23 09:54> DS: Data Data Completed and Pending Completed studies during hospitalization [Text1]: Procedures Excision of Right Lobe Liver, Percutaneous Approach, Diagnostic (07/05/21) <Susy Coelho - Last Filed: 05/26/23 09:54> Labs on day of discharge: Laboratory Results - last 24 hr 05/25/23 05/25/23 05/26/23 11:13 18:13 00:30 aPTT Heparin Protocol 52.1 L 67.1 D 71.8 <Susy Coelho - Last Filed: 05/26/23 09:54> Discharge Plan Discharge Anticipated Discharge Date/Time: 05/26/23 09:22 <Susy Coelho - Last Filed: 05/26/23 09:54> Patient Disposition: [facility] <Susy Coelho - Last Filed: 05/26/23 09:54> Discharge Diagnosis: NSTEMI <Susy Coelho - Last Filed: 05/26/23 09:54> NSTEMI <Dhiraj Pimentel MD - Last Filed: 05/26/23 11:13> Referrals: Jefferson Sosa MD [Primary Care Provider] - 1 Week <Susy Coelho - Last Filed: 05/26/23 09:54> Discharge Medications: New atorvastatin 40 mg Tablet 40 mg PO DAILY Qty: 30 0RF metoprolol tartrate 25 mg tablet 12.5 mg PO BID Qty: 30 0RF aspirin 81 mg capsule 81 mg PO DAILY Qty: 30 0RF heparin(porcine) in 0.45% NaCl 25,000 unit/250 mL Parenteral Solution 25,000 unit continuous IV infusion .Q0M Qty: 6000 0RF Rx Instructions: Per heparin protocol Continued famotidine 40 mg tablet 40 mg PO BEDTIME Qty: 30 6RF cyanocobalamin (vitamin B-12) 500 mcg tablet 1 tab DAILY cholecalciferol (vitamin D3) 25 mcg (1,000 unit) tablet 1 tab PO DAILY cetirizine 10 mg tablet 1 tab PO DAILY PRN (Reason: Allergy Symptoms) omeprazole 40 mg capsule,delayed release(DR/EC) 40 mg PO DAILY@0630 azithromycin 500 mg tablet 500 mg PO MOWEFR@0900 Rx Instructions: Wednesday, Wednesday, Wednesday ferrous sulfate 325 mg (65 mg iron) tablet 325 mg PO Q OTHER DAY donepezil 5 mg tablet 5 mg PO BEDTIME <Susy Coelho - Last Filed: 05/26/23 09:54> Discharge Orders: Discharge Order (Routine); Ordered 05/26/23 Ordered By: Dhiraj Pimentel <Susy Coelho - Last Filed: 05/26/23 09:54> Diet: Advance to usual diet <Susy Coelho - Last Filed: 05/26/23 09:54> Advance to usual diet <Dhiraj Pimentel MD - Last Filed: 05/26/23 11:13> Activity on Discharge: As tolerated <Susy Coelho - Last Filed: 05/26/23 09:54> As tolerated <Dhiraj Pimentel MD - Last Filed: 05/26/23 11:13> Stand Alone Forms: Patient Portal Discharge page <Susy Coelho - Last Filed: 05/26/23 09:54> Print Language: Slovenian <Susy Coelho - Last Filed: 05/26/23 09:54> Care Plan Goals: Risk startification with cardiac catheterization and further management of heart disease <Susy Coelho - Last Filed: 05/26/23 09:54> Health Concerns: NSTEMI,h/o non tuberculous mycobacterial disease, carcinoma of liver--stable <Susy Coelho - Last Filed: 05/26/23 09:54> Plan of Treatment: To [facility] for coronary catheterization. Follow up with primary care physician, operator command support systems for mycobacterial disease, and oncologist for liver carcinoma. -IV heparin, ASA, metoprolol, Lipitor for acute [place] <Susy Coelho - Last Filed: 05/26/23 09:54> Assessment: As above <Susy Coelho - Last Filed: 05/26/23 09:54>
--- NOTE | 2023-05-26 09:41 | PM.PNCARD ---
Subjective Subjective Date of Service: 05/26/23 Interval history: She states that she is feeling okay. No further chest pains. Review of Systems Review of Systems Yes all other systems are reviewed and are negative Constitutional: Reports as per HPI and Reports no additional constitutional complaints Eyes: Reports as per HPI and Denies no additional eye complaints Denies system reviewed and no additional complaints, except as documented and Reports as per HPI Cardiovascular: Reports as per HPI, Reports no additional cardiovascular complaints, Denies acrocyanosis, Denies cool extremities, Denies chest pain, Denies leg edema, Denies lightheadedness, Denies palpitations and Denies dyspnea Respiratory: Reports as per HPI, Denies no additional respiratory complaints and Denies dyspnea Gastrointestinal: Reports as per HPI and Denies no additional gastrointestinal complaints Genitourinary: Reports as per HPI Musculoskeletal: Reports no additional musculoskeletal complaints and Reports as per HPI Skin/Breast: Reports system reviewed and no additional complaints, except as docu Reports system reviewed and no additional complaints, except as documented and Reports as per HPI Psychiatric: Reports no additional psychiatric complaints and Reports as per HPI Endocrine: Reports no additional endocrine complaints, Reports as per HPI and Denies palpitations Hematologic/Lymphatic: Reports no additional hematologic/lymphatic complaints and Reports as per HPI Allergic/Immunologic: Reports no additional allergic/immunologic complaints and Reports as per HPI Physical Exam Vital Signs: Last Vital Signs Temp 97.9 F 05/26/23 07:26 Pulse 62 05/26/23 07:26 Resp 18 05/26/23 07:26 BP 112/60 05/26/23 07:26 Pulse Ox 96 05/26/23 07:26 O2 Del Method Room Air 05/26/23 07:26 BMI result Body Mass Index 18.5 Const General: comfortable and no acute distress Orientation/consciousness: patient oriented x3 HEENT Other: Unremarkable Head: Yes normal to inspection Neck Neck: Yes normal visual inspection Chest Chest palpation & inspection: normal inspection of the chest Resp Auscultation: clear to auscultation bilaterally Cardio Palpation: normal PMI Heart sounds: S1 normal heart sound present, S2 normal heart sound present, no gallops, no murmurs and no rubs GI Palpation (GI): Soft to palpation Back/Spine/Pelvis Other: unremarkable Skin General skin exam: no rashes or lesions noted Neuro General: patient oriented x3 Extrem General: Yes normal to inspection Psych Mental Status: mental status grossly normal Objective Labs and Meds 05/25/23 06:17 05/25/23 06:17 Lab results: Laboratory Results - last 24 hr 05/25/23 05/25/23 05/26/23 11:13 18:13 00:30 aPTT Heparin Protocol 52.1 L 67.1 D 71.8 Imaging Radiologist's impression: Impressions Abdomen/Pelvis CT 05/25/23 11:53 IMPRESSION: 1. Cavitary lesion in the right lower lobe has slightly decreased in size. The surrounding parenchymal tissue has improved. 2. Multiple bilateral pulmonary nodules are stable or slightly improved. No new nodules seen. If clinically patient has not improved, a repeat PET/CT imaging can be performed. 3. No abnormal mediastinal or hilar lymphadenopathy seen. 4. No acute process seen in the abdomen. 5. Cholelithiasis with mild wall thickening. 6. Mild constipation. Colonic diverticulosis without diverticulitis. 7. Minimal fluid in the right cul-de-sac. Fleischner guidelines were followed. Chest CT 05/25/23 11:53 IMPRESSION: 1. Cavitary lesion in the right lower lobe has slightly decreased in size. The surrounding parenchymal tissue has improved. 2. Multiple bilateral pulmonary nodules are stable or slightly improved. No new nodules seen. If clinically patient has not improved, a repeat PET/CT imaging can be performed. 3. No abnormal mediastinal or hilar lymphadenopathy seen. 4. No acute process seen in the abdomen. 5. Cholelithiasis with mild wall thickening. 6. Mild constipation. Colonic diverticulosis without diverticulitis. 7. Minimal fluid in the right cul-de-sac. Fleischner guidelines were followed. Progress Note: A&P Assessment and plan (1) Non-ST elevation [place] (NSTEMI): Status: Acute (2) Carcinoma of liver: Status: Chronic Plan Echocardiogram with LVEF of 40-45% with wall motion abnormalities. Elevated troponin suggestive of NSTEMI. Discussed with oncology and a CT scan was performed yesterday that is showing no recurrence of liver cancer. Hence cleared by Oncology to proceed with cardiac catheterization/dual antiplatelet therapy. Discussed with patient and she is agreeable. We can transferred to [facility] for cardiac catheterization. May keep on IV heparin drip for now. Discussed with Dr. Pimentel. Time Spent With Patient Time: Total time managing care of this patient today ____ minutes. Progress Note: Quality Stroke Does the patient have a stroke diagnosis?: No Procedures Date of Service Date of Service: 05/26/23
[2023-05-26 09:42] LABS: Hematocrit 33.9 % (37.0-47.0); Hemoglobin 11.4 g/dl (12.0-16.0); Mean Corpuscular HGB Conc 33.6 g/dl (31.0-35.0); Mean Corpuscular Hemoglobin 31.8 pg (27.0-33.0); Mean Corpuscular Volume 94.4 fL (80.0-98.0); Mean Platelet Volume 10.7 fL (9.4-12.3); Platelet Count 170 X10*3/uL (160-400); Red Blood Count 3.59 X10*6/uL (4.20-5.50); Red Cell Distribution Width 12.7 % (11.0-16.0); White Blood Count 3.2 X10*3/uL (4.8-10.8)
[2023-05-26 09:49] LABS: PTT Heparin Drip 65.3 SEC (53-77.9)
[2023-05-26 12:00] VITALS: BP 112/61; PULSE 60; RESP 18; TEMP 36.7; O2SAT 96
--- NOTE | 2023-05-26 12:53 | MHC.CM.PN ---
pt to bs today
[2023-05-26 15:13] VITALS: BP 98/57; PULSE 58; RESP 18; TEMP 36.6; O2SAT 97
== END 2023-05-26 16:32 | disposition short-term general hospital (02) | DRG 281 ==
LOC: HO.ED 21:07 → HO.EDOVER 22:06 → HO.S3 23:23
PROVIDERS: Physician Assistant; Admitting Provider Student in an Organized Health Care Education/Training Program; Emergency Provider Emergency Medicine; PCP Internal Medicine; Visit Provider Internal Medicine
DX: I21.4 Non-ST elevation (NSTEMI) myocardial infarction (principal); A31.0 Pulmonary mycobacterial infection; C22.7 Other specified carcinomas of liver; K21.9 Gastro-esophageal reflux disease without esophagitis; Z20.822 Contact with and (suspected) exposure to COVID-19; Z79.899 Other long term (current) drug therapy
CPT/HCPCS: 36415; 71046; 71250; 74176; 80048; 80053; 83690; 84484; 85025; 85027; 85610; 85730; 87502; 87635; 93005; 93306; 99285; J1644

== ENCOUNTER 2023-05-24 21:51 | Outpatient (BNV) | payer OTHER, SELFPAY | END 2023-05-25 07:00 | PROVIDERS: Admitting Provider Student in an Organized Health Care Education/Training Program; Emergency Provider Emergency Medicine; PCP Internal Medicine; Visit Provider Internal Medicine | DX: I21.4 Non-ST elevation (NSTEMI) myocardial infarction (principal) | CPT/HCPCS: 93306 ==

== ENCOUNTER → 2023-05-24 21:51 | Outpatient (BNV) | payer OTHER, SELFPAY | PROVIDERS: Admitting Provider Student in an Organized Health Care Education/Training Program; Emergency Provider Emergency Medicine; PCP Internal Medicine; Visit Provider Student in an Organized Health Care Education/Training Program | DX: I21.4 Non-ST elevation (NSTEMI) myocardial infarction (principal); A31.0 Pulmonary mycobacterial infection | CPT/HCPCS: 99222; 99233; 99239 ==

== ENCOUNTER → 2023-05-24 21:51 | Outpatient (BNV) | payer OTHER, SELFPAY | PROVIDERS: Admitting Provider Student in an Organized Health Care Education/Training Program; Emergency Provider Emergency Medicine; PCP Internal Medicine; Visit Provider Internal Medicine | DX: I21.4 Non-ST elevation (NSTEMI) myocardial infarction (principal); I49.1 Atrial premature depolarization; R94.31 Abnormal electrocardiogram [ECG] [EKG] | CPT/HCPCS: 93010; 99223; 99233 ==

== ENCOUNTER → 2023-05-27 23:59 | Outpatient (BNV) | payer OTHER, SELFPAY | PROVIDERS: PCP Internal Medicine; Visit Provider Internal Medicine Cardiovascular Disease | DX: I21.4 Non-ST elevation (NSTEMI) myocardial infarction (principal) | CPT/HCPCS: 93458; 99152 ==

== ENCOUNTER 2023-05-31 10:55 | Outpatient (REF) | payer OTHER, SELFPAY ==
[2023-05-31 12:25] LABS: Anion Gap 12 (12-20); Blood Urea Nitrogen 25 mg/dL (9-16); Calcium 9.7 mg/dL (8.4-10.2); Carbon Dioxide 29 mmol/L (22-29); Chloride 106 mmol/L (96-108); Estimated Glomerular Filt Rate 41; Glucose Random 95 mg/dL (60-115); Phosphorus 3.5 mg/dL (2.7-4.5); Potassium 4.4 mmol/L (3.3-5.1); Sodium 143 mmol/L (135-145)
== END 2023-05-31 10:56 | disposition home or self-care (01) ==
LOC: HO.HVNA 10:55
PROVIDERS: Visit Provider Internal Medicine
DX: N28.89 Other specified disorders of kidney and ureter (principal)
CPT/HCPCS: 36415; 80048; 84100

== ENCOUNTER 2023-06-08 15:13 | Outpatient (REF) | payer OTHER, SELFPAY ==
[2023-06-08 17:48] LABS: Anion Gap 10 (12-20); Blood Urea Nitrogen 25 mg/dL (9-16); Calcium 10.1 mg/dL (8.4-10.2); Carbon Dioxide 30 mmol/L (22-29); Chloride 104 mmol/L (96-108); Estimated Glomerular Filt Rate 43; Glucose Random 118 mg/dL (60-115); Potassium 4.3 mmol/L (3.3-5.1); Sodium 140 mmol/L (135-145)
== END 2023-06-08 15:14 | disposition home or self-care (01) ==
LOC: HO.CHCLDS 15:13
PROVIDERS: Visit Provider Internal Medicine
DX: I21.4 Non-ST elevation (NSTEMI) myocardial infarction (principal); N17.9 Acute kidney failure, unspecified
CPT/HCPCS: 36415; 80048

== ENCOUNTER 2023-06-11 12:35 | Outpatient (AMB) | payer OTHER, SELFPAY ==
--- NOTE | 2023-06-11 13:29 | MHC.OFFVIS ---
Intake Vital Signs 06/11/23 13:30 Height 5 ft 2 in Weight 102 lb 11.767 oz BMI 18.8 BP 114/64 Blood Pressure Location Lt brachial Position Sitting Pulse 58 Pulse Source Pulse Oximeter Intake Visit Reasons: [facility]/-/Cardiac Cath/Cardiac Clearance Optical Designer Required: Yes Optical Designer Language: Kyrgyz Allergies No Known Allergies [No Known Allergies*] Allergy (Verified 06/11/23 13:33) Medication List - Last Reconciled 06/11/23 by Kay Denise, CREDIT CONTROL OFFICER-C aspirin 81 mg PO DAILY atorvastatin 40 mg PO DAILY azithromycin 500 mg PO MOWEFR@0900 cetirizine 1 tab PO DAILY PRN cholecalciferol (vitamin D3) 1 tab PO DAILY cyanocobalamin (vitamin B-12) 1 tab DAILY donepezil 5 mg PO BEDTIME famotidine 40 mg PO BEDTIME ferrous sulfate 325 mg PO Q OTHER DAY heparin(porcine) in 0.45% NaCl 25,000 unit/250 mL 25,000 units (250 mL) continuous IV infusion .Q0M metoprolol tartrate 12.5 mg (1/2 x 25 mg) PO BID omeprazole 40 mg PO DAILY@0630 HPI [facility]/-/Cardiac Cath/Cardiac Clearance HPI Details Crystal is a 77-year-old female with past medical history of metastatic lung CA with carcinoma of liver who Dr. Mario. She was recently admitted to [facility] with report of abdominal discomfort. She was noted to have elevation in her troponin. She was treated for NSTEMI. Her echocardiogram showed EF 40-45% with regional wall motion abnormalities. She was transferred to [facility] for cardiac catheterization showing no significant CAD. She now presents for follow-up. Today she reports she has been doing well since her hospital discharge. She has had no recurrent abdominal discomfort. She denies any chest discomfort at rest or with activity. No shortness of breath, palpitations, presyncope, syncope, PND, orthopnea or edema. She is taking her meds as directed. She tells me that her cancer is stable. Her daughter is present. Certified laboratory clerk used. 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 Hemoptysis Lymphadenopathy Injury of right knee Elevated blood sugar Chronic renal failure Renal cyst Vitamin deficiency, unspecified Allergic rhinitis Depressive disorder Osteoarthritis Obesity HTN (hypertension) Anemia Surgical History History of esophagogastroduodenoscopy (EGD) (~2017) History of section History of liver biopsy (~2021) Family History Father Cancer Mother Cancer Paternal Grandmother Cancer Social History Household Members: None Housing: Apartment Are you a primary school child care attendant to a significant other at home: No Do you presently have visiting nurse or other home services: Yes Patient Tobacco Use Status: Never used Tobacco service: No Current occupational status: retired and disabled Review of Systems Const All systems reviewed & are unremarkable except as noted in HPI and below ENT Denies dizziness Card Denies chest pain, Denies chest pain at rest, Denies chest pain with activity, Denies rapid heart rate, Denies pedal edema, Denies edema, Denies leg edema, Denies lightheadedness, Denies palpitations, Denies dyspnea, Denies dyspnea on exertion and Denies orthopnea Resp Denies cough, Denies dyspnea and Denies dyspnea on exertion GI Denies hematochezia and Denies change in stool character Musc Denies abnormal gait, Denies limited range of motion, Denies muscle cramps, Denies muscle weakness, Denies numbness, Denies radiating pain into limb, Denies stiffness and Denies tingling Neuro Denies abnormal gait, Denies dizziness, Denies numbness and Denies tingling Endo Denies palpitations Physical Exam Vital Signs: Last Vital Signs Pulse 58 06/11/23 13:30 BP 114/64 06/11/23 13:30 BMI result Body Mass Index 18.8 Const Other: Frail elderly female General: cooperative, comfortable and no acute distress Orientation/consciousness: patient oriented x3 Neck Neck: Yes normal visual inspection and Yes no JVD Resp Effort & Inspection: normal respiratory effort Auscultation: clear to auscultation bilaterally, no crackles, no rales, no rhonchi and no wheezes Cardio Jugular venous distension: no JVD Rate: regular rate Rhythm: regular rhythm Heart sounds: S1 normal heart sound present, S2 normal heart sound present, no murmurs and no rubs Neuro General: patient oriented x3 Extrem Other: Right radial catheterization site with easily palpable radial pulse, hand assessment normal General: Yes normal to inspection, No no pedal edema and No calf tenderness Psych Appearance: grossly normal Mental Status: mental status grossly normal Speech and movement: Normal speech and movement present Assessment & Plan Assessment & Plan (1) Non-ST elevation PA (NSTEMI): Code(s): I21.4 - Non-ST elevation (NSTEMI) myocardial infarction Plan: Presented to [facility] on 05/24/2023 with report of abdominal discomfort. Initial testing showed elevation in troponin, peaked at 571. EKG showed sinus rhythm with incomplete right bundle branch block, no acute ST or T-wave abnormalities. An echocardiogram showed EF 40-45%, regional wall motion abnormality inferiorly and anteriorly, grade 2 diastolic dysfunction. She was managed medically then transferred to [facility] for cardiac catheterization which was done on 05/27/2023 showing a right coronary dominant system with no significant coronary artery disease. Based on her elevated troponins and echo findings she was then thought to have takotsubo cardiomyopathy. Her blood pressure and heart rate runs low. She is only on low-dose metoprolol 12.5 mg b.i.d.. Today she reports feeling well with no concerning symptoms. All the above reviewed with her in detail. Right radial catheterization site is well healed. Will plan for limited echo in 2 weeks, 1 month from the last to re-evaluate EF and wall motion. Plan to call her with results. If it remains abnormal then med management can be re-evaluated. If EF and wall motion has normalized then cardiology follow-up will be 6 months, sooner if needed (2) S/P cardiac catheterization: Comment: 05/27/2023, right-dominant system, RCA no significant disease, left main minimal ostial disease, left circumflex and LAD no significant disease Code(s): Z98.890 - Other specified postprocedural states Plan: As above (3) Takotsubo cardiomyopathy: Code(s): I51.81 - Takotsubo syndrome Plan: As above, continue metoprolol (4) Carcinoma of liver: Onset Date: ~2021 Code(s): C22.0 - Liver cell carcinoma Plan: Follows with Dr. Mario. Repeat echocardiogram is pending. Condition stable at present with no significant CAD. Cardiac clearance was requested prior to restart of chemotherapy. If her chemotherapy can cause reduction in EF then would wait until after repeat echocardiogram. If chemotherapy does not affect EF, heart function then she can resume at this time. Call/ send message to Cardiology if further questions. (5) Hospital discharge follow-up: Code(s): Z09 - Encounter for follow-up examination after completed treatment for conditions other than malignant neoplasm Plan: As above Plan Time spent on chart review, documentation, interview assessment Coding Level of Care Code Est Pt Level 4 (45427) Diagnoses Non-ST elevation PA (NSTEMI) I21.4 S/P cardiac catheterization Z98.890 Takotsubo cardiomyopathy I51.81 Carcinoma of liver C22.0 Hospital discharge follow-up Z09 Time Spent (min) 28
[2023-06-11 13:30] VITALS: BP 114/64; PULSE 58; BMI 18.8
== END 2023-06-11 14:05 | disposition home or self-care (01) ==
PROVIDERS: PCP Internal Medicine; Visit Provider Nurse Practitioner Family
DX: I21.4 Non-ST elevation (NSTEMI) myocardial infarction (principal); Z98.890 Other specified postprocedural states; I51.81 Takotsubo syndrome; C22.0 Liver cell carcinoma; Z09 Encounter for follow-up examination after completed treatment for conditions other than malignant neoplasm
CPT/HCPCS: 99214

== ENCOUNTER → 2023-06-11 12:35 | Outpatient (BNVA) | payer OTHER, SELFPAY | PROVIDERS: PCP Internal Medicine; Visit Provider Nurse Practitioner Family | DX: Z09 Encounter for follow-up examination after completed treatment for conditions other than malignant neoplasm (principal); I21.4 Non-ST elevation (NSTEMI) myocardial infarction; I51.81 Takotsubo syndrome; C22.0 Liver cell carcinoma; Z98.890 Other specified postprocedural states | CPT/HCPCS: 99212 ==

== ENCOUNTER 2023-06-14 09:20 | Outpatient (AMB) | payer OTHER, SELFPAY ==
--- NOTE | 2023-06-14 09:39 | MHC.OFFVIS ---
Intake Vital Signs 06/14/23 09:44 Height 5 ft 2 in Weight 102 lb 5 oz BMI 18.7 BP 122/60 Blood Pressure Location Lt brachial Position Sitting Pulse 64 Pulse Source Pulse Oximeter Pulse Oximetry (%) 98 Oxygen Delivery Method Room Air Intake Visit Reasons: COPD [place] Machine Operator Required: No Allergies No Known Allergies [No Known Allergies*] Allergy (Verified 06/14/23 09:46) HPI HPI Comments History of Present Illness Details The patient is a 77 year woman who initially presented to the hospital back in June with respiratory complaints. She was diagnosed with a cavitary pneumonia at the time. Then she was found to the significant liver mass. 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 She was started on chemotherapy. Ultimately underwent a PET scan demonstrated that the liver mass that trunk in the FDG activity at the cruise. However, the cavitary lung lesion actually got worse with newer lesions as well. The patient was subsequently sent for a CT-guided biopsy which demonstrated no evidence of malignancy otherwise showed necrotizing and non-necrotizing granulomas. The patient was tested for tuberculosis which was negative. At this point the patient started to cough up blood. Denies any chest pains or any significant shortness of breath. Ultimately she was referred to Pulmonary. We did review her imaging studies and her symptoms during the office. the patient denies any exposure to anybody with tuberculosis or having tuberculosis herself. Again her T spot was negative although that is not 100%. We did talk about different options. At this point reviewing the CT scan appears to have significant hilar and mediastinal lymphadenopathy. Therefore Pulmonary bronchial ultrasound bronchoscopy with sampling of the lymph nodes and also plan to do a regular bronchoscopy to assess the right lower lobe cavity. Again infection likely due to the immunocompromised state is the most likely diagnosis. Fungal infections and mycobacterial disease are high in the differential. 03/13/2022 the patient is here for a pulmonary follow-up visit. The patient is status post bronchoscopy. No evidence of any malignancy noted on her CT scan which is reassuring. Her cultures were positive for both if fungal infection and also mycobacterial infection. As of yet were still waiting for the probe on the mycobacterial culture to rule out Mycobacterium tuberculosis. She already had a negative T spot therefore is unlikely to be tuberculosis. Will likely be more non tuberculosis mycobacteria infection. She will need to be treated however. In view of the fungal infection also refer her to Dr. Mercer. Once we have the identification of the organism reason start antibacterial therapy. However, need to be very careful with adverse effects from the multiple antimicrobial agents required to treat this type of smoldering infection. Since the bronchoscopy she still complaining of sore throat. I will send her Magic mouthwash to the pharmacy. 06/08/2022 the patient is here for a pulmonary follow-up visit. The patient overall is doing well. She is tolerating the antimycobacterial medication. She never to cover consult. Clinically she is doing better. She did follow-up with Infectious Disease in no further interventions are warranted. The patient did have blood work which is reassuring although she appears to be little dehydrated. She has needs to drink water. She has been complaining of heartburn after taking the medication. I will prescribe Pepsi that she can use at nighttime. In the meantime she also needs probiotics. I will send those also to the pharmacy. If she cannot get the mass prescription she should get them [id number]. Will have her get an EKG and also chest x-ray to assess response to therapy. She will continue with daily therapy with her severe mycobacterial disease. Clinically she is doing well which is reassuring will continue to monitor her progress. 08/17/2022 the patient is here for a pulmonary follow-up visit. Overall the patient has been doing better from a respiratory status. Denies any coughing denies any congestion or hemoptysis. She is tolerating the anti my call bacterial therapy although she is getting more nauseous now and increased heartburn. She is also having issues with diarrhea. Although she looks healthy year she still not gaining significant amount of weight. We did talk about adding nutritional snacks with high-protein to try to increase her calorie intake. We did review her last chest x-ray demonstrating interval improvement no overall airspace disease. She still has a thin walled cavity in the right hemithorax. I do believe the patient is making improvements. Also her laboratory data is reassuring. In view of her improvement in her adverse effects of the medications will go ahead and change her regimen from daily to 3 times a week. The family understands will try to keep her on the therapy until March. If the patient has a hard time with that therapy even 3 times a week eating sensitive monotherapy although that can increase the risk of resistance. 12/07/2022 the patient is here for pulmonary follow-up visit. The patient continues to do well. She is tolerating the medicine better now that is 3 times a week. Denies any worsening respiratory symptoms actually she feels okay. She also follows closely with Oncology for the liver disease. The patient did undergo a PET scan sometime in September 2022 demonstrating interval improvement in the parenchymal lung disease and appears that the cavity is smaller in size suggesting good response to therapy. She is going to continue with mycobacterial therapy 3 times a week for now. Will follow-up in 4-6 months to assess duration of therapy. 06/14/2023 the patient is here for a pulmonary follow-up visit. Recently she was in the hospital apparently she developed the that ST-elevation [place] consistent with a broken heart syndrome. She was treated and released. While she was in a hospital she did have a repeat CTA that demonstrated interval decrease in the cavitary lesion and also improvement in the other nodular densities. She has been responding well to the antimycobacterial therapy. She has been on the therapy 3 times a week. She is having some GI upset with some heartburn. Will go ahead and increase her omeprazole to twice a day. If she continues to be symptomatic she can always call we can give her a break from the medicine. In the meantime will continue the therapy 3 times a week for the next 3-4 months and then at point decide about monotherapy. Will have to get a sputum culture to make sure that she has no longer culture positive for the mycobacterial before we do that, however. The patient also had an EKG demonstrating normal QT interval which is reassuring. She will continue with current therapy until her next follow-up in 3-4 months. [facility] Medical History Sore throat 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 Hemoptysis Lymphadenopathy Injury of right knee Elevated blood sugar Chronic renal failure Renal cyst Vitamin deficiency, unspecified Allergic rhinitis Depressive disorder Osteoarthritis Obesity HTN (hypertension) Anemia Surgical History History of esophagogastroduodenoscopy (EGD) (~2017) History of section History of liver biopsy (~2021) Family History Father Cancer Mother Cancer Paternal Grandmother Cancer Social History Household Members: None Housing: Apartment Are you a primary child care associate to a significant other at home: No Do you presently have visiting nurse or other home services: Yes Patient Tobacco Use Status: Never used Tobacco service: No Current occupational status: retired and disabled Review of Systems Const Denies excessive sweating, Reports fatigue, Denies fever(s) and Reports weight loss Eyes Denies change in vision and Denies itchy eyes ENT Denies change in voice, Reports otalgia and Reports sore throat Card Denies chest pain Resp Denies cough and Denies hemoptysis GI Reports as per HPI, Reports dyspepsia and Reports heartburn Musc Reports myalgias Neuro Reports no additional complaints Endo Denies excessive sweating and Reports fatigue Sumit/Lymph Denies easy bleeding and Denies easy bruising Aller/Immun Denies itchy eyes Physical Exam Vital Signs: Last Vital Signs Pulse 64 06/14/23 09:44 BP 122/60 06/14/23 09:44 Pulse Ox 98 06/14/23 09:44 Oxygen Delivery Method Room Air 06/14/23 09:44 BMI result Body Mass Index 18.7 Const General: comfortable and alert HEENT Head: Yes normal to inspection Eyes General: appearance normal, both eyes and all related structures Neck Neck: Yes supple Chest Chest palpation & inspection: normal inspection of the chest Resp Effort & Inspection: normal respiratory effort Auscultation: no rales, no rhonchi, no wheezes and diminished lung sounds Cardio Rate: regular rate Rhythm: regular rhythm Heart sounds: S1 normal heart sound present and S2 normal heart sound present GI Auscultation: normal bowel sounds General: Yes no CVA tenderness Back/Spine/Pelvis Back: no CVA tenderness Extrem General: No clubbing and No cyanosis Left lower extremity: ankle Details: tenderness Location: anteromedially (with induration, cord like) Results Reviewed Results Reviewed: [address] [address] [address] Scan Report Signed Patient: Crystal Avila I MR#: [id number] : 1945 Acct:[id number] Age/Sex: 77 / F ADM Date: 05/24/23 Loc: [facility] [id number]: Dhiraj Pimentel MD Ordering Physician: Dhiraj Pimentel MD Date of Service: 05/25/23 Procedure(s): CT chest wo IV con Accession Number(s): [id number] cc: Jefferson Sosa MD; Dhiraj Pimentel MD~ EXAMINATION: CT CHEST WITHOUT IV CONTRAST CT ABDOMEN AND PELVIS WITHOUT IV CONTRAST CLINICAL INFORMATION: History of liver cancer. COMPARISON: CT chest 07/07/2021. CT-guided biopsy 05/25/2021. TECHNIQUE: 5 mm thin axial and reformatted 3 mm thin sagittal and coronal images of the chest were obtained without contrast. Subsequently, 5 mm thin axial and reformatted 3 mm thin sagittal and coronal images of the abdomen and pelvis were obtained without contrast. DLP: 328 mGy-cm. This CT examination was performed using dose optimization technique as appropriate, variously including the following: Automated exposure control Adjustment of MA and/or KV according to patient size(this includes techniques or standardized protocols for targeted exams where dose is matched to indication/reason for exam; extremities or head. Use of iterative reconstruction techniques. FINDINGS: CHEST: Lungs: Again visualized is a small cavitary lesion with air-fluid level in the right lower lobe measuring 2.7 x 2.5 cm. Previously it measured 4.0 x 3.0 cm. It has slightly reduced in size likely secondary to biopsy. The irregular-appearing wall is 2 mm compared to 4-5 mm in thickness previously. The parenchymal tissue around the cavity has improved. The small 5 mm nodule inferior to the cavity right lower lobe has improved as well. There are two 3 mm nodules left lower lobe on axial image 33/4 and 34/4 which are stable. There are additional smaller nodules seen in the right lower lobe adjacent posterior mediastinum which are stable as well. There are 3 mm nodules adjacent to the major fissure and right lower lobe on axial image 59/8 which are stable as well. There are 2 mm scattered pulmonary nodules in the right middle lobe, lingula which are stable or slightly improved in size. The parenchymal reticular stranding and patchy parenchymal opacities have improved. There are no new nodules or enlargement of existing nodules at this time. Mild atelectatic changes seen right middle lobe. Mediastinum: The central trachea and bronchi are widely patent. Thyroid lobes are symmetrical and normal. No abnormal size mediastinal or hilar lymph nodes seen. Heart size and the great vessels are normal. There is [id number] coronary artery and aortic valve calcifications. There is no pericardial effusion. Pleura: There is no abnormal pleural effusion, thickening or calcification. Axilla: Unremarkable. The chest wall is unremarkable. Osseous Structures: No aggressive lytic or sclerotic process seen. The paravertebral soft tissues are normal. ABDOMEN AND PELVIS: Liver, Ducts and Gallbladder: The liver is normal size, contour and density. No focal lesion or intrahepatic ductal dilatation seen. There are multiple radiopaque gallstones. Mild wall thickening. Spleen: Unremarkable. Pancreas: Unremarkable. Adrenal Glands: Unremarkable. Kidneys: Both kidneys are normal size, shape and position. No radiopaque renal calculi seen. There is a 3.6 cm simple cyst mid to lower pole right kidney. There is no perinephric stranding. Lymphovascular Structures: Abdominal aorta is normal caliber. No retrobulbar lymph nodes seen. GI Tract: There is scattered stool, diverticula and gas seen throughout the colon without distention. There is no diverticulitis. The small bowel loops are normal caliber. The appendix is not seen. Abdominal Wall: Unremarkable. Pelvis: The uterus is midline with an IUD well located within the endometrial canal. No adnexal mass. There is minimal fluid in the right cul-de-sac. Osseous Structures: No aggressive lytic or sclerotic process seen. CT/CT chest wo IV con IMPRESSION: 1. Cavitary lesion in the right lower lobe has slightly decreased in size. The surrounding parenchymal tissue has improved. 2. Multiple bilateral pulmonary nodules are stable or slightly improved. No new nodules seen. If clinically patient has not improved, a repeat PET/CT imaging can be performed. 3. No abnormal mediastinal or hilar lymphadenopathy seen. 4. No acute process seen in the abdomen. 5. Cholelithiasis with mild wall thickening. 6. Mild constipation. Colonic diverticulosis without diverticulitis. 7. Minimal fluid in the right cul-de-sac. Fleischner guidelines were followed. Dictated By: William Ivey MD Signed By: <Electronically signed by William Ivey MD in OV> 05/25/23 1528 DD/ 1153 TD/TT: Transmission Maintenance Supervisor: [facility] Assessment & Plan Assessment & Plan (1) Cavitary lesion of lung: Code(s): J98.4 - Other disorders of lung (2) Lymphadenopathy: Code(s): R59.1 - Generalized enlarged lymph nodes (3) Mycobacterial disease: Code(s): A31.9 - Mycobacterial infection, unspecified (4) Leg pain, left: Code(s): M79.605 - Pain in left leg Plan continue Azithromycin/Ethambutol MWF EKG/CXR/Bloodwork ok increase PPI to BID probiotics F/U 3-4 months Medications: New qnunhqvd-ozcxnc-BN-thonzonium 3.3-3-10-0.5 mg/mL (Cortisporin-TC) 4 drps otic (ear) right TID 10 days 10 mL 0RF Changed From omeprazole 40 mg PO DAILY@0630 To omeprazole 40 mg PO BID 30 days 60 caps 6RF Coding Level of Care Code Est Pt Level 4 (85708) Diagnoses Cavitary lesion of lung J98.4 Lymphadenopathy R59.1 Mycobacterial disease A31.9 Leg pain, left M79.605 Time Spent (min) 18
[2023-06-14 09:44] VITALS: BP 122/60; PULSE 64; O2SAT 98; BMI 18.7
== END 2023-06-14 10:11 | disposition home or self-care (01) ==
PROVIDERS: PCP Internal Medicine; Visit Provider Hospitalist
DX: J98.4 Other disorders of lung (principal); R59.1 Generalized enlarged lymph nodes; A31.9 Mycobacterial infection, unspecified; M79.605 Pain in left leg
CPT/HCPCS: 99214

== ENCOUNTER → 2023-06-14 09:20 | Outpatient (BNVA) | payer OTHER, SELFPAY | PROVIDERS: PCP Internal Medicine; Visit Provider Hospitalist | DX: J98.4 Other disorders of lung (principal); R59.1 Generalized enlarged lymph nodes; A31.9 Mycobacterial infection, unspecified; M79.605 Pain in left leg; Z79.899 Other long term (current) drug therapy | CPT/HCPCS: 99212 ==

== ENCOUNTER → 2023-07-02 10:11 | Outpatient (REF) | payer OTHER, SELFPAY ==
--- NOTE | 2023-07-02 10:16 | CA_ITS ---
Transthoracic Echocardiogram Patient (Last, First, Middle): Crystal Avila, Gender: Female Date of : 1945 Age: 77 Procedure Date: 07/02/2023 Procedure Type: Transthoracic Echocardiogram Location: OP Height: 157.48 cm Weight: 46.27 kg BSA: 1.44 m2 Heart Rate: 51 bpm BP: 124 / 64 mmHg Manager Marketing Sales: SB Referring MD: Kay Denise ARMHOLE PRESSERIrmaC Sign Maker: Saúl Martinez MD Symptoms: I51.81 - Takotsubo syndrome Study Quality: Adequate/limited ordered for WMA ECG Rhythm: Bradycardia Conclusions: - Normal LV ejection fraction of 55-60% with impaired relaxation filling pattern Findings Left Ventricle Normal left ventricular size, thickness, and systolic function. The visually estimated ejection fraction is between 55-60%. Spectral Doppler is indicative of an impaired relaxation filling pattern. Prior Study Comparison Changes noted compared to prior study dated: 05/25/2023. LV systolic function is normalized with normal wall motion Measurements 2D Linear Measurements IVSd: 0.84 0.6-0.9/0.6-1.0 cm LVIDd: 4.23 3.9-5.3/4.2-5.9 cm LVIDd Index: 2.94 2.4-3.2/2.2-3.1 cm/m2 LVIDs: 3.06 2.0-3.6 cm LVPWd: 0.69 0.7-1.1 cm LV Mass: 119.72 67-162/88-224 g LV Mass Index: 83.14 43-95/49-115 g/m2 LVOT Diam: 2.10 3.0+(-)1.3 cm 2D Systolic Function EF 4C: 54.80 >55% EF 2C: 62.30 >55% EF BiP: 57.20 >55% Mitral Valve MV Pk E: 0.76 MV PK A: 0.38 MV Decel Time: 180.00 E/A: 2.00 E'Lateral: 9.14 E'Medial: 8.27 E/E' Med: 9.20 E/E' Lat: 8.30 PHT: 53.00 MVA PHT: 4.15 Decel [place]: 4.25 LVOT LVOT Pk Edgar: 0.77 LVOT Mn Edgar: 0.53 LVOT VTI: 0.19 LVOT Pk Grad: 2.00 LVOT Mn Grad: 1.00 LVOT Diam: 2.10 LVOT Area: 3.46 Diastolic Function MV Pk E: 0.76 MV Pk A: 0.38 E/A: 2.00 E'Medial: 8.27 E/E' Med: 9.20 E' Laterial: 9.14 E/E' Lat: 8.30 Right Ventricle TAPSE (mm): 35.60 TVS' Edgar: 14.30 Tricuspid Valve TR Pk Edgar: 2.78 TR Pk Grad: 31.00 RA Press: 3.00 RVSP: 34.00 Updated in Other Vendor System with Status of Final Saúl Martinez MD electronically signed on 07/03/2023 12:24:05 PM with status of Final
== END ==
LOC: HO.CARD 10:11
PROVIDERS: PCP Internal Medicine; Visit Provider Nurse Practitioner Family
DX: I51.81 Takotsubo syndrome (principal)
CPT/HCPCS: 93308

== ENCOUNTER → 2023-07-02 10:16 | Outpatient (BNV) | payer OTHER, SELFPAY | PROVIDERS: PCP Internal Medicine; Visit Provider Internal Medicine Cardiovascular Disease | DX: I51.81 Takotsubo syndrome (principal) | CPT/HCPCS: 93308 ==

== ENCOUNTER 2023-07-12 09:40 | Emergency (ER) | payer OTHER, SELFPAY ==
[2023-07-12 10:29] VITALS: BP 112/52; PULSE 60; RESP 18; TEMP 36.6; O2SAT 98; BMI 18.1
[2023-07-12 10:52] LABS: Basophils Percent Auto 0.4 % (0-2); Eosinophils Percent Auto 1.3 % (0-4); Hematocrit 32.5 % (37.0-47.0); Hemoglobin 10.7 g/dl (12.0-16.0); Lymphocytes Absolute Auto 0.6 X10*3/uL (1.2-4.9); Lymphocytes Percent Auto 26.6 % (20-40); MANUAL DIFF FLAG SCAN; Mean Corpuscular HGB Conc 32.9 g/dl (31.0-35.0); Mean Corpuscular Hemoglobin 31.5 pg (27.0-33.0); Mean Corpuscular Volume 95.6 fL (80.0-98.0); Mean Platelet Volume 9.8 fL (9.4-12.3); Monocytes Absolute Auto 0.3 X10*3/uL (0.1-1.2); Monocytes Percent Auto 14.4 % (2-11); Neutrophils Absolute Auto 1.3 x10*3/uL (2.0-8.3); Neutrophils Percent Auto 57.3 % (45-73); Platelet Count 176 X10*3/uL (160-400); Red Cell Distribution Width 13.2 % (11.0-16.0); SCAN SMEAR FLAG 1
[2023-07-12 10:53] LABS: White Blood Count 2.3 X10*3/uL (4.8-10.8)
[2023-07-12 11:05] LABS: Alanine Aminotransferase 14 U/L (0-31); Albumin Level 3.9 g/dL (3.5-5.0); Alkaline Phosphatase 76 U/L (39-117); Anion Gap 8 (12-20); Aspartate Amino Transferase 15 U/L (5-31); Bilirubin Direct 0.2 mg/dL (0.0-0.5); Bilirubin Total 0.4 mg/dL (0.0-1.0); Blood Urea Nitrogen 23 mg/dL (9-16); Calcium 9.3 mg/dL (8.4-10.2); Carbon Dioxide 29 mmol/L (22-29); Chloride 108 mmol/L (96-108); Creatinine Clr Calc Pharmacy 25.8; Estimated Glomerular Filt Rate 39; Glucose Random 107 mg/dL (60-115); Lipase 11 U/L (8-78); Sodium 141 mmol/L (135-145)
[2023-07-12 11:17] LABS: SLIDE REVIEW VERIFIED
[2023-07-12 14:28] LABS: Magnesium 2.2 mg/dL (1.6-2.6)
--- NOTE | 2023-07-12 14:56 | ED_ITS ---
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 Patient with 10 days of diarrhea feels like she cant eat, denies abdominal pain other than cramping prior to diarrhea Onset (ago): week(s) Pain Consistency: now resolved Severity: mild Associated symptoms: diarrhea Related Data Home Medications Medication Instructions Recorded Confirmed cholecalciferol (vitamin D3) 25 1 tab PO DAILY 07/05/21 06/11/23 mcg (1,000 unit) tablet cyanocobalamin (vitamin B-12) 500 1 tab DAILY 07/05/21 06/11/23 mcg tablet cetirizine 10 mg tablet 1 tab PO DAILY PRN Allergy Symptoms 07/23/21 06/11/23 donepezil 5 mg tablet 5 mg PO BEDTIME 02/12/22 06/11/23 azithromycin 500 mg tablet 500 mg PO MOWEFR@0900 05/25/23 06/11/23 ferrous sulfate 325 mg (65 mg 325 mg PO Q OTHER DAY 05/25/23 06/11/23 iron) tablet ethambutol 400 mg tablet 400 mg PO 3XW 06/14/23 Previous Rx's Medication Instructions Recorded famotidine 40 mg tablet 40 mg PO BEDTIME #30 tabs 02/16/23 aspirin 81 mg capsule 81 mg PO DAILY #30 caps 05/26/23 atorvastatin 40 mg tablet 40 mg PO DAILY #30 tabs 05/26/23 heparin (porcine) 25,000 unit/250 25,000 unit (250 mL) continuous IV 05/26/23 mL in 0.45 % sodium chloride IV infusion .Q0M #6,000 mL soln metoprolol tartrate 25 mg tablet 12.5 mg (1/2 x 25 mg) PO BID #30 05/26/23 tabs [id number] 3.3 4 drp otic (ear) right TID 10 days 06/14/23 mg-3 mg-10 mg-0.5 mg/mL ear #10 mL drops,susp (Cortisporin-TC) omeprazole 40 mg capsule,delayed 40 mg PO BID 30 days #60 caps 06/14/23 release loperamide 2 mg capsule (Imodium 2 mg PO Q4H PRN loose stool #30 07/12/23 A-D) caps Allergies Allergy/AdvReac Type Severity Reaction Status Date / Time No Known Allergies Allergy Verified 07/12/23 10:29 [No Known Allergies*] Review of Systems Review of Systems Yes all other systems are reviewed and are negative Denies Sensory deficit (Neuro) [facility] Past Medical History Medical History Sore throat 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 Hemoptysis Lymphadenopathy Injury of right knee Elevated blood sugar Chronic renal failure Renal cyst Vitamin deficiency, unspecified Allergic rhinitis Depressive disorder Osteoarthritis Obesity HTN (hypertension) Anemia Surgical History History of esophagogastroduodenoscopy (EGD) (~2017) History of section History of liver biopsy (~2021) Family History Family History Father Cancer Mother Cancer Paternal Grandmother Cancer Social History Social History Household Members: None Housing: Apartment Are you a primary direct support professional caregiver to a significant other at home: No Do you presently have visiting nurse or other home services: Yes Patient Tobacco Use Status: Never used Tobacco Advance Directives: No Advance Directives Information Provided: No service: No Current occupational status: retired and disabled Physical Exam ED Vital Signs: Vital Signs - 24 hr 07/12/23 10:29 07/12/23 15:55 07/12/23 19:05 Temperature 98 F 98.0 F 98.1 F Pulse Rate 60 55 55 Respiratory Rate 18 15 14 Blood Pressure 112/52 L 125/48 L 135/59 L Pulse Oximetry 98 97 97 Oxygen Delivery Method Room Air Room Air Room Air BMI result Body Mass Index 18.1 Const Other: frail female in no acute distress Nutritional Appearance: thin Orientation/consciousness: oriented to person and patient oriented x3 Limitations: no limitations HENMT Head: Yes normal to inspection Ears: external ears normal General nose exam: Normal external nose present Mouth: Normal oral and palatal mucosa present and oropharynx normal Throat: Yes posterior oropharynx normal Eyes General: appearance normal, both eyes and all related structures Neck Neck: Yes normal visual inspection Chest Chest palpation & inspection: normal inspection of the chest Resp Auscultation: clear to auscultation bilaterally Cardio Jugular venous distension: no JVD Rate: regular rate Rhythm: regular rhythm Heart sounds: S1 normal heart sound present and S2 normal heart sound present GI Inspection: Yes normal to inspection Palpation (GI): Soft to palpation, nontender and No hepatosplenomegaly present Auscultation: normal bowel sounds General: Yes no CVA tenderness Back/Spine/Pelvis Back: no CVA tenderness Skin General skin exam: no rashes or lesions noted Neuro General: oriented to person and patient oriented x3 Cranial nerves: Yes CN's II-XII intact bilaterally Motor exam (neuro): 5/5 motor strength present throughout Sensory Exam: No Sensory deficit (Neuro) Extrem General: Yes normal to inspection Psych Appearance: grossly normal Course Reevaluation(s) Reevaluation #1: patient hydrated, no evidence of cdiff, will treat with immodium and dc home Time: 21:06 Medical Decision Making Differential Diagnosis Differential Diagnoses: The differential diagnosis associated with the presentation includes (diarrhea, cdiff, dehydration colitis were all considered) Admission/Observation Consideration of admission/observation: Escalation of care including admission/observation considered (upon arrival patient considered for admission) Lab Data 07/12/23 10:44 07/12/23 16:00 Labs: Lab Results 07/12/23 07/12/23 07/12/23 Range/Units 10:44 10:44 10:44 WBC 2.3 L (4.8-10.8) X10*3/uL RBC 3.40 L (4.20-5.50) X10*6/uL Hgb 10.7 L (12.0-16.0) g/dl Hct 32.5 L (37.0-47.0) % MCV 95.6 (80.0-98.0) fL MCH 31.5 (27.0-33.0) pg MCHC 32.9 (31.0-35.0) g/dl RDW 13.2 (11.0-16.0) % Plt Count 176 (160-400) X10*3/uL MPV 9.8 (9.4-12.3) fL Immature Gran % (Auto) 0.0 (0.0-0.4) % Neut % (Auto) 57.3 (45-73) % Lymph % (Auto) 26.6 (20-40) % Reagan % (Auto) 14.4 H (2-11) % Eos % (Auto) 1.3 (0-4) % Baso % (Auto) 0.4 (0-2) % Lymph # (Auto) 0.6 L (1.2-4.9) X10*3/uL Reagan # (Auto) 0.3 (0.1-1.2) X10*3/uL Eos # (Auto) 0.0 (0.0-0.4) X10*3/uL Baso # (Auto) 0.0 (0.0-0.2) X10*3/uL Abs Immat Gran (auto) 0.00 (0.00-0.03) X10*3/uL Absolute Neuts (auto) 1.3 L (2.0-8.3) x10*3/uL Absolute Nucleated RBC 0.000 (0.0-0.012) X10*3/uL Nucleated RBC % (auto) 0.0 (0.0-0.2) /100WBC Smear Tech's Comments VERIFIED Sodium 141 Cancelled (135-145) mmol/L Potassium 4.0 Cancelled (3.3-5.1) mmol/L Chloride 108 (96-108) mmol/L Carbon Dioxide (22-29) mmol/L Anion Gap (12-20) BUN (9-16) mg/dL Creatinine (0.5-1.4) mg/dL Estim Creat Clear Calc Estimated GFR Random Glucose (60-115) mg/dL Calcium (8.4-10.2) mg/dL Magnesium (1.6-2.6) mg/dL Total Bilirubin (0.0-1.0) mg/dL Direct Bilirubin (0.0-0.5) mg/dL AST (5-31) U/L ALT (0-31) U/L Alkaline Phosphatase (39-117) U/L Total Protein (6.5-8.0) g/dL Albumin (3.5-5.0) g/dL Lipase (8-78) U/L Urine Color Urine Appearance Urine pH (5.0-9.0) Ur Specific [place] (1.005-1.025) Urine Protein (Neg-Trace) mg/dL Urine Glucose (UA) (Negative) mg/dL Urine Ketones (Negative) mg/dL Urine Blood (Negative) Urine Nitrite (Negative) Ur Leukocyte Esterase (Negative) C. difficile Tox B Gene (Negative) 07/12/23 07/12/23 07/12/23 Range/Units 10:44 10:44 10:44 WBC (4.8-10.8) X10*3/uL RBC (4.20-5.50) X10*6/uL Hgb (12.0-16.0) g/dl Hct (37.0-47.0) % MCV (80.0-98.0) fL MCH (27.0-33.0) pg MCHC (31.0-35.0) g/dl RDW (11.0-16.0) % Plt Count (160-400) X10*3/uL MPV (9.4-12.3) fL Immature Gran % (Auto) (0.0-0.4) % Neut % (Auto) (45-73) % Lymph % (Auto) (20-40) % Reagan % (Auto) (2-11) % Eos % (Auto) (0-4) % Baso % (Auto) (0-2) % Lymph # (Auto) (1.2-4.9) X10*3/uL Reagan # (Auto) (0.1-1.2) X10*3/uL Eos # (Auto) (0.0-0.4) X10*3/uL Baso # (Auto) (0.0-0.2) X10*3/uL Abs Immat Gran (auto) (0.00-0.03) X10*3/uL Absolute Neuts (auto) (2.0-8.3) x10*3/uL Absolute Nucleated RBC (0.0-0.012) X10*3/uL Nucleated RBC % (auto) (0.0-0.2) /100WBC Smear Tech's Comments Sodium (135-145) mmol/L Potassium (3.3-5.1) mmol/L Chloride Cancelled (96-108) mmol/L Carbon Dioxide 29 Cancelled (22-29) mmol/L Anion Gap 8 L Cancelled (12-20) BUN 23 H (9-16) mg/dL Creatinine (0.5-1.4) mg/dL Estim Creat Clear Calc Estimated GFR Random Glucose (60-115) mg/dL Calcium (8.4-10.2) mg/dL Magnesium (1.6-2.6) mg/dL Total Bilirubin (0.0-1.0) mg/dL Direct Bilirubin (0.0-0.5) mg/dL AST (5-31) U/L ALT (0-31) U/L Alkaline Phosphatase (39-117) U/L Total Protein (6.5-8.0) g/dL Albumin (3.5-5.0) g/dL Lipase (8-78) U/L Urine Color Urine Appearance Urine pH (5.0-9.0) Ur Specific [place] (1.005-1.025) Urine Protein (Neg-Trace) mg/dL Urine Glucose (UA) (Negative) mg/dL Urine Ketones (Negative) mg/dL Urine Blood (Negative) Urine Nitrite (Negative) Ur Leukocyte Esterase (Negative) C. difficile Tox B Gene (Negative) 07/12/23 07/12/23 07/12/23 Range/Units 10:44 10:44 10:44 WBC (4.8-10.8) X10*3/uL RBC (4.20-5.50) X10*6/uL Hgb (12.0-16.0) g/dl Hct (37.0-47.0) % MCV (80.0-98.0) fL MCH (27.0-33.0) pg MCHC (31.0-35.0) g/dl RDW (11.0-16.0) % Plt Count (160-400) X10*3/uL MPV (9.4-12.3) fL Immature Gran % (Auto) (0.0-0.4) % Neut % (Auto) (45-73) % Lymph % (Auto) (20-40) % Reagan % (Auto) (2-11) % Eos % (Auto) (0-4) % Baso % (Auto) (0-2) % Lymph # (Auto) (1.2-4.9) X10*3/uL Reagan # (Auto) (0.1-1.2) X10*3/uL Eos # (Auto) (0.0-0.4) X10*3/uL Baso # (Auto) (0.0-0.2) X10*3/uL Abs Immat Gran (auto) (0.00-0.03) X10*3/uL Absolute Neuts (auto) (2.0-8.3) x10*3/uL Absolute Nucleated RBC (0.0-0.012) X10*3/uL Nucleated RBC % (auto) (0.0-0.2) /100WBC Smear Tech's Comments Sodium (135-145) mmol/L Potassium (3.3-5.1) mmol/L Chloride (96-108) mmol/L Carbon Dioxide (22-29) mmol/L Anion Gap (12-20) BUN Cancelled (9-16) mg/dL Creatinine 1.31 Cancelled (0.5-1.4) mg/dL Estim Creat Clear Calc 25.8 Cancelled Estimated GFR 39 Random Glucose (60-115) mg/dL Calcium (8.4-10.2) mg/dL Magnesium (1.6-2.6) mg/dL Total Bilirubin (0.0-1.0) mg/dL Direct Bilirubin (0.0-0.5) mg/dL AST (5-31) U/L ALT (0-31) U/L Alkaline Phosphatase (39-117) U/L Total Protein (6.5-8.0) g/dL Albumin (3.5-5.0) g/dL Lipase (8-78) U/L Urine Color Urine Appearance Urine pH (5.0-9.0) Ur Specific [place] (1.005-1.025) Urine Protein (Neg-Trace) mg/dL Urine Glucose (UA) (Negative) mg/dL Urine Ketones (Negative) mg/dL Urine Blood (Negative) Urine Nitrite (Negative) Ur Leukocyte Esterase (Negative) C. difficile Tox B Gene (Negative) 07/12/23 07/12/23 07/12/23 Range/Units 10:44 10:44 10:44 WBC (4.8-10.8) X10*3/uL RBC (4.20-5.50) X10*6/uL Hgb (12.0-16.0) g/dl Hct (37.0-47.0) % MCV (80.0-98.0) fL MCH (27.0-33.0) pg MCHC (31.0-35.0) g/dl RDW (11.0-16.0) % Plt Count (160-400) X10*3/uL MPV (9.4-12.3) fL Immature Gran % (Auto) (0.0-0.4) % Neut % (Auto) (45-73) % Lymph % (Auto) (20-40) % Reagan % (Auto) (2-11) % Eos % (Auto) (0-4) % Baso % (Auto) (0-2) % Lymph # (Auto) (1.2-4.9) X10*3/uL Reagan # (Auto) (0.1-1.2) X10*3/uL Eos # (Auto) (0.0-0.4) X10*3/uL Baso # (Auto) (0.0-0.2) X10*3/uL Abs Immat Gran (auto) (0.00-0.03) X10*3/uL Absolute Neuts (auto) (2.0-8.3) x10*3/uL Absolute Nucleated RBC (0.0-0.012) X10*3/uL Nucleated RBC % (auto) (0.0-0.2) /100WBC Smear Tech's Comments Sodium (135-145) mmol/L Potassium (3.3-5.1) mmol/L Chloride (96-108) mmol/L Carbon Dioxide (22-29) mmol/L Anion Gap (12-20) BUN (9-16) mg/dL Creatinine (0.5-1.4) mg/dL Estim Creat Clear Calc Estimated GFR Cancelled Random Glucose 107 Cancelled (60-115) mg/dL Calcium 9.3 D Cancelled (8.4-10.2) mg/dL Magnesium 2.2 (1.6-2.6) mg/dL Total Bilirubin 0.4 (0.0-1.0) mg/dL Direct Bilirubin (0.0-0.5) mg/dL AST (5-31) U/L ALT (0-31) U/L Alkaline Phosphatase (39-117) U/L Total Protein (6.5-8.0) g/dL Albumin (3.5-5.0) g/dL Lipase (8-78) U/L Urine Color Urine Appearance Urine pH (5.0-9.0) Ur Specific [place] (1.005-1.025) Urine Protein (Neg-Trace) mg/dL Urine Glucose (UA) (Negative) mg/dL Urine Ketones (Negative) mg/dL Urine Blood (Negative) Urine Nitrite (Negative) Ur Leukocyte Esterase (Negative) C. difficile Tox B Gene (Negative) 07/12/23 07/12/23 07/12/23 Range/Units 10:44 10:44 10:44 WBC (4.8-10.8) X10*3/uL RBC (4.20-5.50) X10*6/uL Hgb (12.0-16.0) g/dl Hct (37.0-47.0) % MCV (80.0-98.0) fL MCH (27.0-33.0) pg MCHC (31.0-35.0) g/dl RDW (11.0-16.0) % Plt Count (160-400) X10*3/uL MPV (9.4-12.3) fL Immature Gran % (Auto) (0.0-0.4) % Neut % (Auto) (45-73) % Lymph % (Auto) (20-40) % Reagan % (Auto) (2-11) % Eos % (Auto) (0-4) % Baso % (Auto) (0-2) % Lymph # (Auto) (1.2-4.9) X10*3/uL Reagan # (Auto) (0.1-1.2) X10*3/uL Eos # (Auto) (0.0-0.4) X10*3/uL Baso # (Auto) (0.0-0.2) X10*3/uL Abs Immat Gran (auto) (0.00-0.03) X10*3/uL Absolute Neuts (auto) (2.0-8.3) x10*3/uL Absolute Nucleated RBC (0.0-0.012) X10*3/uL Nucleated RBC % (auto) (0.0-0.2) /100WBC Smear Tech's Comments Sodium (135-145) mmol/L Potassium (3.3-5.1) mmol/L Chloride (96-108) mmol/L Carbon Dioxide (22-29) mmol/L Anion Gap (12-20) BUN (9-16) mg/dL Creatinine (0.5-1.4) mg/dL Estim Creat Clear Calc Estimated GFR Random Glucose (60-115) mg/dL Calcium (8.4-10.2) mg/dL Magnesium (1.6-2.6) mg/dL Total Bilirubin Cancelled (0.0-1.0) mg/dL Direct Bilirubin 0.2 (0.0-0.5) mg/dL AST 15 Cancelled (5-31) U/L ALT 14 Cancelled (0-31) U/L Alkaline Phosphatase 76 (39-117) U/L Total Protein (6.5-8.0) g/dL Albumin (3.5-5.0) g/dL Lipase (8-78) U/L Urine Color Urine Appearance Urine pH (5.0-9.0) Ur Specific [place] (1.005-1.025) Urine Protein (Neg-Trace) mg/dL Urine Glucose (UA) (Negative) mg/dL Urine Ketones (Negative) mg/dL Urine Blood (Negative) Urine Nitrite (Negative) Ur Leukocyte Esterase (Negative) C. difficile Tox B Gene (Negative) 07/12/23 07/12/23 07/12/23 Range/Units 10:44 10:44 10:44 WBC (4.8-10.8) X10*3/uL RBC (4.20-5.50) X10*6/uL Hgb (12.0-16.0) g/dl Hct (37.0-47.0) % MCV (80.0-98.0) fL MCH (27.0-33.0) pg MCHC (31.0-35.0) g/dl RDW (11.0-16.0) % Plt Count (160-400) X10*3/uL MPV (9.4-12.3) fL Immature Gran % (Auto) (0.0-0.4) % Neut % (Auto) (45-73) % Lymph % (Auto) (20-40) % Reagan % (Auto) (2-11) % Eos % (Auto) (0-4) % Baso % (Auto) (0-2) % Lymph # (Auto) (1.2-4.9) X10*3/uL Reagan # (Auto) (0.1-1.2) X10*3/uL Eos # (Auto) (0.0-0.4) X10*3/uL Baso # (Auto) (0.0-0.2) X10*3/uL Abs Immat Gran (auto) (0.00-0.03) X10*3/uL Absolute Neuts (auto) (2.0-8.3) x10*3/uL Absolute Nucleated RBC (0.0-0.012) X10*3/uL Nucleated RBC % (auto) (0.0-0.2) /100WBC Smear Tech's Comments Sodium (135-145) mmol/L Potassium (3.3-5.1) mmol/L Chloride (96-108) mmol/L Carbon Dioxide (22-29) mmol/L Anion Gap (12-20) BUN (9-16) mg/dL Creatinine (0.5-1.4) mg/dL Estim Creat Clear Calc Estimated GFR Random Glucose (60-115) mg/dL Calcium (8.4-10.2) mg/dL Magnesium (1.6-2.6) mg/dL Total Bilirubin (0.0-1.0) mg/dL Direct Bilirubin (0.0-0.5) mg/dL AST (5-31) U/L ALT (0-31) U/L Alkaline Phosphatase Cancelled (39-117) U/L Total Protein 7.0 Cancelled (6.5-8.0) g/dL Albumin 3.9 Cancelled (3.5-5.0) g/dL Lipase 11 (8-78) U/L Urine Color Urine Appearance Urine pH (5.0-9.0) Ur Specific [place] (1.005-1.025) Urine Protein (Neg-Trace) mg/dL Urine Glucose (UA) (Negative) mg/dL Urine Ketones (Negative) mg/dL Urine Blood (Negative) Urine Nitrite (Negative) Ur Leukocyte Esterase (Negative) C. difficile Tox B Gene (Negative) 07/12/23 07/12/23 07/12/23 Range/Units 10:44 16:00 19:52 WBC (4.8-10.8) X10*3/uL RBC (4.20-5.50) X10*6/uL Hgb (12.0-16.0) g/dl Hct (37.0-47.0) % MCV (80.0-98.0) fL MCH (27.0-33.0) pg MCHC (31.0-35.0) g/dl RDW (11.0-16.0) % Plt Count (160-400) X10*3/uL MPV (9.4-12.3) fL Immature Gran % (Auto) (0.0-0.4) % Neut % (Auto) (45-73) % Lymph % (Auto) (20-40) % Reagan % (Auto) (2-11) % Eos % (Auto) (0-4) % Baso % (Auto) (0-2) % Lymph # (Auto) (1.2-4.9) X10*3/uL Reagan # (Auto) (0.1-1.2) X10*3/uL Eos # (Auto) (0.0-0.4) X10*3/uL Baso # (Auto) (0.0-0.2) X10*3/uL Abs Immat Gran (auto) (0.00-0.03) X10*3/uL Absolute Neuts (auto) (2.0-8.3) x10*3/uL Absolute Nucleated RBC (0.0-0.012) X10*3/uL Nucleated RBC % (auto) (0.0-0.2) /100WBC Smear Tech's Comments Sodium 142 (135-145) mmol/L Potassium 4.7 (3.3-5.1) mmol/L Chloride 111 H (96-108) mmol/L Carbon Dioxide 27 (22-29) mmol/L Anion Gap 9 L (12-20) BUN 21 H (9-16) mg/dL Creatinine 1.20 (0.5-1.4) mg/dL Estim Creat Clear Calc 28.2 Estimated GFR 44 Random Glucose 98 (60-115) mg/dL Calcium 9.1 (8.4-10.2) mg/dL Magnesium (1.6-2.6) mg/dL Total Bilirubin 0.3 (0.0-1.0) mg/dL Direct Bilirubin (0.0-0.5) mg/dL AST 17 (5-31) U/L ALT 13 (0-31) U/L Alkaline Phosphatase 70 (39-117) U/L Total Protein 6.9 (6.5-8.0) g/dL Albumin 3.7 (3.5-5.0) g/dL Lipase Cancelled 8 (8-78) U/L Urine Color Yellow Urine Appearance Clear Urine pH 5.5 (5.0-9.0) Ur Specific [place] 1.020 (1.005-1.025) Urine Protein Trace (Neg-Trace) mg/dL Urine Glucose (UA) Negative (Negative) mg/dL Urine Ketones Trace (Negative) mg/dL Urine Blood Negative (Negative) Urine Nitrite Negative (Negative) Ur Leukocyte Esterase Negative (Negative) C. difficile Tox B Gene NEGATIVE (Negative) Independent Historian Clinical information obtained from an independent historian. History obtained from or confirmed by: Other (family) Tests considered The following testing was considered but not selected: CT of abdomen considered but patient is nonfocal abdominal exam Prescription Management I considered prescription management with: Antibiotic (no infection noted) Chronic Conditions Patient?s care impacted by: Other (cardiac diseases) Medications Administered Discontinued Medications Generic Name Dose Route Start Last Admin Trade Name Freq PRN Reason Stop Dose Admin Sodium Chloride 1,000 mls @ 200 mls/hr 07/12/23 16:00 07/12/23 17:28 Ns IVCONT 07/12/23 20:59 200 mls/hr .Q5H BRENDA Administration Discharge Plan Discharge Clinical Impression: Diarrhea Patient Disposition: Home, Self-Care Instructions: Chronic Diarrhea (ED), Nutrition Tips for Relief of Diarrhea (ED) Additional Instructions: clear liquid diet until diarrhea completely stops for 24 hours Prescriptions: New loperamide [Imodium A-D] 2 mg capsule 2 mg PO Q4H PRN (Reason: loose stool) Qty: 30 0RF Rx Instructions: administer after each loose stool until symptoms controlled; do not exceed 8 mg per 24 hrs No Action famotidine 40 mg tablet 40 mg PO BEDTIME Qty: 30 6RF cyanocobalamin (vitamin B-12) 500 mcg tablet 1 tab DAILY cholecalciferol (vitamin D3) 25 mcg (1,000 unit) tablet 1 tab PO DAILY cetirizine 10 mg tablet 1 tab PO DAILY PRN (Reason: Allergy Symptoms) azithromycin 500 mg tablet 500 mg PO MOWEFR@0900 Rx Instructions: Wednesday, Wednesday, Wednesday ferrous sulfate 325 mg (65 mg iron) tablet 325 mg PO Q OTHER DAY atorvastatin 40 mg Tablet 40 mg PO DAILY Qty: 30 0RF metoprolol tartrate 25 mg tablet 12.5 mg PO BID Qty: 30 0RF aspirin 81 mg capsule 81 mg PO DAILY Qty: 30 0RF heparin(porcine) in 0.45% NaCl 25,000 unit/250 mL Parenteral Solution 25,000 unit continuous IV infusion .Q0M Qty: 6000 0RF Rx Instructions: Per heparin protocol donepezil 5 mg tablet 5 mg PO BEDTIME ethambutol 400 mg tablet 400 mg PO 3XW Cortisporin-TC 3.3-3-10-0.5 mg/mL drops,suspension 4 drp otic (ear) right TID 10 Days Qty: 10 0RF omeprazole 40 mg capsule,delayed release(DR/EC) 40 mg PO BID 30 Days Qty: 60 6RF Referrals: Jefferson Sosa MD [Primary Care Provider] - 3 days
[2023-07-12 15:55] VITALS: BP 125/48; PULSE 55; RESP 15; TEMP 36.7; O2SAT 97
[2023-07-12 16:20] LABS: Alanine Aminotransferase 13 U/L (0-31); Albumin Level 3.7 g/dL (3.5-5.0); Alkaline Phosphatase 70 U/L (39-117); Anion Gap 9 (12-20); Aspartate Amino Transferase 17 U/L (5-31); Bilirubin Total 0.3 mg/dL (0.0-1.0); Blood Urea Nitrogen 21 mg/dL (9-16); Calcium 9.1 mg/dL (8.4-10.2); Carbon Dioxide 27 mmol/L (22-29); Chloride 111 mmol/L (96-108); Creatinine Clr Calc Pharmacy 28.2; Estimated Glomerular Filt Rate 44; Glucose Random 98 mg/dL (60-115); Lipase 8 U/L (8-78); Potassium 4.7 mmol/L (3.3-5.1); Sodium 142 mmol/L (135-145); Total Protein 6.9 g/dL (6.5-8.0)
[2023-07-12] MEDS: 0.9 % Sodium Chloride 1,000 ML 200 ML IVCONT (17:28)
[2023-07-12 19:05] VITALS: BP 135/59; PULSE 55; RESP 14; TEMP 36.7; O2SAT 97
[2023-07-12 20:04] LABS: Appearance Urine Clear; Color Urine Yellow; Glucose Urine UA Negative (Negative); Leukocyte Esterase Urine Negative (Negative); Nitrite Urine Negative (Negative); PH 5.5 (5.0-9.0); Urine Blood Negative (Negative); Urine Ketones Trace mg/dL (Negative); Urine Protein Trace mg/dL (Neg-Trace)
[2023-07-12 20:56] LABS: CDiff Gene PCR NEGATIVE (Negative)
[2023-07-13 11:21] LABS: Adenovirus F 40/41 Not Detected (Not Detect.); Astrovirus Not Detected (Not Detect.); Campylobacter Not Detected (Not Detect.); Cryptosporidium Not Detected (Not Detect.); Cyclospora cayetanensis Not Detected (Not Detect.); E. coli EAEC Not Detected (Not Detect.); E. coli EPEC Not Detected (Not Detect.); E. coli ETEC Not Detected (Not Detect.); E. coli STEC Not Detected (Not Detect.); Entamoeba histolytica Not Detected (Not Detect.); Giardia lamblia Not Detected (Not Detect.); Norovirus GI/GII Not Detected (Not Detect.); Plesiomonas shigelloides Not Detected (Not Detect.); Rotavirus A Not Detected (Not Detect.); Salmonella Not Detected (Not Detect.); Sapovirus Not Detected (Not Detect.); Shigella sp./EIEC Not Detected (Not Detect.); Vibrio Not Detected (Not Detect.); Vibrio Cholerae Not Detected (Not Detect.); Yersinia enterocolitica Not Detected (Not Detect.)
== END 2023-07-12 20:00 | disposition home or self-care (01) ==
PROVIDERS: Physician Assistant Medical; Emergency Provider Emergency Medicine; PCP Internal Medicine
DX: R19.7 Diarrhea, unspecified (principal); C22.0 Liver cell carcinoma; R91.1 Solitary pulmonary nodule; I10 Essential (primary) hypertension
CPT/HCPCS: 36415; 80048; 80053; 80076; 81003; 83690; 83735; 85025; 87493; 87507; 99283

== ENCOUNTER 2023-07-16 16:26 | Outpatient (REF) | payer OTHER, SELFPAY ==
[2023-07-16 19:48] LABS: Folate 7.6 ng/mL (> or = 4.0); Vitamin B12 1009 pg/mL (200-900)
[2023-07-16 23:34] LABS: Alanine Aminotransferase 13 U/L (0-31); Albumin Level 3.9 g/dL (3.5-5.0); Alkaline Phosphatase 78 U/L (39-117); Anion Gap 11 (12-20); Aspartate Amino Transferase 14 U/L (5-31); Bilirubin Total 0.2 mg/dL (0.0-1.0); Blood Urea Nitrogen 20 mg/dL (9-16); Calcium 9.1 mg/dL (8.4-10.2); Carbon Dioxide 26 mmol/L (22-29); Chloride 108 mmol/L (96-108); Estimated Glomerular Filt Rate 50; Glucose Random 109 mg/dL (60-115); Potassium 3.3 mmol/L (3.3-5.1); Sodium 142 mmol/L (135-145)
== END 2023-07-16 16:27 | disposition home or self-care (01) ==
LOC: HO.CHCLDS 16:26
PROVIDERS: Visit Provider Internal Medicine
DX: R19.7 Diarrhea, unspecified (principal); E56.9 Vitamin deficiency, unspecified; R41.3 Other amnesia
CPT/HCPCS: 36415; 80053; 82607; 82746; 84443

== ENCOUNTER 2023-08-19 14:53 | Outpatient (REF) | payer OTHER, SELFPAY ==
--- NOTE | ~2023-08-19 | US_ITS ---
EXAMINATION: US VENOUS ULTRASOUND WITH DOPPLER LOWER EXTREMITY, BILATERAL CLINICAL INFORMATION: Bilateral lower extremity swelling and right leg pain COMPARISON: 12/08/2022 TECHNIQUE: Ultrasound of the deep veins is performed from the hip to the calf with compression sonography and color and pulse Doppler assessment. Spectral analysis with color-flow imaging is performed. FINDINGS: RIGHT: There is normal venous compression and respiratory variation and augmented flow. The visualized common femoral vein, superficial femoral vein, profunda femoral vein, popliteal vein, and the trifurcation region shows no evidence of deep venous thrombosis. There is a lobulated Moya's cyst in the popliteal fossa measuring at least 3.1 x 1.3 x 2.3 cm which appears to be extending between the gastrocnemius muscles in the proximal calf LEFT: There is normal venous compression and respiratory variation and augmented flow. The visualized common femoral vein, superficial femoral vein, profunda femoral vein, popliteal vein, and the trifurcation region shows no evidence of deep venous thrombosis. There is a simple Moya's cyst in the popliteal fossa measuring 3.4 x 0.7 x 0.6 cm. If the patient's symptoms persist, followup ultrasound in 5 days 7 days might be of value to exclude proximal propagation from a non-visualized calf vein. US/US venous duplex LE BI IMPRESSION: No DVT demonstrated in the bilateral lower extremity. Bilateral Moya's cyst as described above
== END 2023-08-19 14:54 | disposition home or self-care (01) ==
LOC: HO.US 14:53
PROVIDERS: PCP Internal Medicine; Visit Provider Emergency Medicine
DX: M79.604 Pain in right leg (principal); R60.0 Localized edema
CPT/HCPCS: 93970

== ENCOUNTER 2023-08-31 13:35 | Outpatient (REF) | payer OTHER, SELFPAY ==
[2023-08-31 14:39] LABS: CDiff Gene PCR NEGATIVE (Negative)
== END 2023-08-31 13:36 | disposition home or self-care (01) ==
LOC: HO.HVNA 13:35
PROVIDERS: Visit Provider Internal Medicine
DX: C22.0 Liver cell carcinoma (principal)
CPT/HCPCS: 87493

== ENCOUNTER 2023-09-23 16:01 | Emergency (ER) | payer OTHER, SELFPAY ==
[2023-09-23 17:05] VITALS: BP 127/65; PULSE 68; RESP 14; TEMP 36.4; O2SAT 97; BMI 19.7
--- NOTE | 2023-09-23 17:07 | ED_ITS ---
HPI - General Adult General Chief complaint: GI Bleed Stated complaint: black stool, abd feels like burning Time Seen by Provider: 09/23/23 19:34 Source: patient, family, RN notes reviewed and old records reviewed Mode of arrival: ambulatory Limitations: no limitations (Patient declined interpreting services) History of Present Illness HPI narrative: 78-year-old female with past medical history significant for takotsubo cardiomyopathy, coronary artery disease, history of mycobacterial disease of the lung, iron deficiency anemia presents for evaluation of dark stool and abdominal pain. Patient reports burning abdominal pain that starts around her belly button and goes all way up into her chest The pain is worse after eating She noticed some dark stool yesterday but not today She has not on any blood thinners She reports a history of heartburn but has never noticed blood or dark stool Denies any fevers, chills, cough, shortness of breath She reports increased weakness which she feels is related to poor appetite Related Data Home Medications ?Medication ?Instructions ?Recorded ?Confirmed cholecalciferol (vitamin D3) 25 1 tab PO DAILY 07/05/21 08/18/23 mcg (1,000 unit) tablet cyanocobalamin (vitamin B-12) 500 1 tab DAILY 07/05/21 08/18/23 mcg tablet cetirizine 10 mg tablet 1 tab PO DAILY PRN Allergy Symptoms 07/23/21 08/18/23 donepezil 5 mg tablet 5 mg PO BEDTIME 02/12/22 08/18/23 azithromycin 500 mg tablet 500 mg PO MOWEFR@0900 05/25/23 08/18/23 ferrous sulfate 325 mg (65 mg 325 mg PO Q OTHER DAY 05/25/23 08/18/23 iron) tablet ethambutol 400 mg tablet 400 mg PO 3XW 06/14/23 08/18/23 Previous Rx's ?Medication ?Instructions ?Recorded atorvastatin 40 mg tablet 40 mg PO DAILY #30 tabs 05/26/23 omeprazole 40 mg capsule,delayed 40 mg PO BID 30 days #60 caps 06/14/23 release loperamide 2 mg capsule (Imodium 2 mg PO Q4H PRN loose stool #30 07/12/23 A-D) caps omeprazole 40 mg capsule,delayed See Rx Instructions .Route 08/06/23 release .COMPLEX #30 caps famotidine 40 mg tablet 40 mg PO BEDTIME #30 tabs 08/30/23 metoprolol succinate 25 mg 25 mg PO DAILY #30 tabs 09/01/23 tablet,extended release 24 hr calcium carbonate 1,000 2 tab PO QID PRN indigestion #20 09/23/23 mg-simethicone 60 mg chewable tabs tablet (Maalox Advanced) ondansetron 4 mg disintegrating 4 mg PO Q8H PRN nausea and 09/23/23 tablet vomiting #20 tabs Allergies Allergy/AdvReac Type Severity Reaction Status Date / Time No Known Allergies Allergy Verified 09/23/23 17:08 [No Known Allergies*] Review of Systems 2 Constitutional: Constitutional: Denies chills, Denies fever(s), Reports malaise, Reports weakness and Reports weight loss Eyes: Eyes: Denies blurry vision ENT: Denies vertigo Cardiovascular: Cardiovascular: Denies chest pain and Denies dyspnea Respiratory: Respiratory: Denies chest congestion, Denies cough and Denies dyspnea Gastrointestinal: Gastrointestinal: Reports abdominal pain, Reports melena, Denies hematochezia, Denies coffee ground emesis, Denies constipation, Reports nausea and Denies vomiting Genitourinary: Genitourinary: Denies difficulty voiding and Denies dysuria Musculoskeletal: Musculoskeletal: Denies back pain Integumentary/Breasts: Skin/Breast: Denies rash Neurologic: Denies vertigo and Reports weakness PMFSH Past Medical History Medical History Sore throat 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 Hemoptysis Lymphadenopathy Injury of right knee Elevated blood sugar Chronic renal failure Renal cyst Vitamin deficiency, unspecified Allergic rhinitis Depressive disorder Osteoarthritis Obesity HTN (hypertension) Anemia Surgical History History of esophagogastroduodenoscopy (EGD) (~2017) History of section History of liver biopsy (~2021) Family History Family History Father Cancer Mother Cancer Paternal Grandmother Cancer Social History Social History Household Members: None Housing: Apartment Are you a primary personal care aid to a significant other at home: No Do you presently have visiting nurse or other home services: Yes Patient Tobacco Use Status: Never used Tobacco Advance Directives: No Advance Directives Information Provided: No Do you have a plan to hurt others: No Plan service: No Current occupational status: retired and disabled Physical Exam ED Vital Signs: Vital Signs - 24 hr 09/23/23 17:05 09/23/23 20:46 Temperature 97.5 F 97.4 F Pulse Rate 68 67 Respiratory Rate 14 16 Blood Pressure 127/65 123/68 Pulse Oximetry 97 99 Oxygen Delivery Method Room Air Room Air BMI result Body Mass Index 19.7 Const General: healthy appearing, comfortable, no acute distress, alert and awake Nutritional Appearance: well nourished Orientation/consciousness: patient oriented x3 HENMT Head: Yes normocephalic and Yes atraumatic Eyes Eyelids: Yes eyelids normal Conjunctivae: conjunctivae normal Sclerae: sclerae normal Corneas: corneas normal Pupils: Equal, round and reactive pupils present EOM: EOMs intact bilaterally Neck Neck: Yes full ROM Resp Effort & Inspection: normal respiratory effort, able to speak in complete sentences, no audible wheezes and not labored Auscultation: clear to auscultation bilaterally Cardio Rate: regular rate Rhythm: regular rhythm GI Inspection: No distended Palpation (GI): Soft to palpation, not firm, nontender, no guarding and not rigid Rectal Exam - Female: visual inspection normal, heme positive stool, No External hemorrhoid(s) present and No Internal hemorrhoid(s) present Skin General skin exam: elasticity normal Neuro General: patient oriented x3 Cranial nerves: Yes Equal, round and reactive pupils present and Yes Bilaterally intact EOM present Cognition (Neuro): normal cognition Extrem Other: Moving all extremities well without any obvious deformities Course Course Course Narrative: RME performed by Sindy Rothman PA-C. Patient is a 78 year old assigned female at presenting to the emergency department with dark stools and abdominal pain. Patient states that over the last 2 days she has had some intermittent abdominal pain and dark stools. Detailed physical exam and review of systems are deferred to the air export operations agent. Labs ordered. Patient placed back in the waiting room pending room availability and results. Reevaluation(s) Reevaluation #1: Patient reports feeling much better after GI cocktail. She is hemodynamically stable, we will start her on at mealtimes in addition to the omeprazole that she takes b.i.d. and she will be referred to follow-up with GI Time: 21:14 Medications Administered Discontinued Medications Generic Name Dose Route Start Last Admin Trade Name Ze PRN Reason Stop Dose Admin Al Hydroxide/Mg Hydroxide 30 ml 09/23/23 20:10 09/23/23 20:18 Magnesium Hydrox/Alum Hydrox 30 Ml Oral.Susp PO 09/23/23 20:11 30 ml ONCE ONE Administration Lidocaine HCl 15 ml 09/23/23 20:10 09/23/23 20:18 Lidocaine Hcl Viscous 2 % 15 Ml Solution MUCOUS MEM 09/23/23 20:11 15 ml ONCE ONE Administration Ondansetron HCl 4 mg 09/23/23 20:10 09/23/23 20:18 Ondansetron Odt 4 Mg Tab.Rapdis TRANSLINGU 09/23/23 20:11 4 mg ONCE ONE Administration Medical Decision Making Medical Decision Making [facility] Narrative: 78 old female presents for evaluation of burning abdominal pain and dark stool. The blood thinners. Her hemoglobin is around her baseline which is between 10 and 11. Hemoglobin today is 10.2 with a hematocrit of 31.0. On exam she has light brown stool that is guaiac positive. Her chemistries have no significant abnormalities. Within normal limits. Her total protein and albumin are both slightly below normal which may be related to poor appetite. Her abdominal exam is reassuring, she is nontender on palpation. For GI cocktail Differential Diagnosis Differential Diagnoses: The differential diagnosis associated with the presentation includes Peptic ulcer disease Gastritis Gastroenteritis Biliary colic Lab Data [facility] Lab Attestation statement: I reviewed the patient's lab results. Mild leukopenia and mild anemia consistent with baseline. Normal platelet count. No electrolyte abnormalities. Renal function within normal limits 09/23/23 18:02 09/23/23 18:02 Labs: Lab Results 09/23/23 09/23/23 Range/Units 18:02 20:11 WBC 3.2 L (4.8-10.8) X10*3/uL RBC 3.27 L (4.20-5.50) X10*6/uL Hgb 10.2 L (12.0-16.0) g/dl Hct 31.0 L (37.0-47.0) % MCV 94.8 (80.0-98.0) fL MCH 31.2 (27.0-33.0) pg MCHC 32.9 (31.0-35.0) g/dl RDW 13.2 (11.0-16.0) % Plt Count 205 (160-400) X10*3/uL MPV 9.3 L (9.4-12.3) fL Immature Gran % (Auto) 0.0 (0.0-0.4) % Neut % (Auto) 60.8 (45-73) % Lymph % (Auto) 28.7 (20-40) % [place] % (Auto) 7.7 (2-11) % Eos % (Auto) 2.5 (0-4) % Baso % (Auto) 0.3 (0-2) % Lymph # (Auto) 0.9 L (1.2-4.9) X10*3/uL [place] # (Auto) 0.3 (0.1-1.2) X10*3/uL Eos # (Auto) 0.1 (0.0-0.4) X10*3/uL Baso # (Auto) 0.0 (0.0-0.2) X10*3/uL Abs Immat Gran (auto) 0.00 (0.00-0.03) X10*3/uL Absolute Neuts (auto) 2.0 (2.0-8.3) x10*3/uL Absolute Nucleated RBC 0.000 (0.0-0.012) X10*3/uL Nucleated RBC % (auto) 0.0 (0.0-0.2) /100WBC Sodium 138 (135-145) mmol/L Potassium 3.7 D (3.3-5.1) mmol/L Chloride 102 (96-108) mmol/L Carbon Dioxide 29 (22-29) mmol/L Anion Gap 11 L (12-20) BUN 16 (9-16) mg/dL Creatinine 1.03 (0.5-1.4) mg/dL Estim Creat Clear Calc 29.9 Estimated GFR 52 Random Glucose 89 (60-115) mg/dL Calcium 8.8 D (8.4-10.2) mg/dL Magnesium 2.2 (1.6-2.6) mg/dL Total Bilirubin 0.5 (0.0-1.0) mg/dL AST 16 (5-31) U/L ALT 10 (0-31) U/L Alkaline Phosphatase 73 (39-117) U/L Total Protein 6.3 L (6.5-8.0) g/dL Albumin 3.3 L (3.5-5.0) g/dL Stool Occult Blood POSITIVE (NEGATIVE) Influenza Type A (PCR) NEGATIVE (Negative) Influenza Type B (PCR) NEGATIVE (Negative) RSV RNA Qual (PCR) NEGATIVE (Negative) SARS-CoV-2 RNA (RT-PCR) NEGATIVE (Negative) Discharge Plan Discharge Clinical Impression: Chronic GERD, Guaiac positive stools Patient Disposition: Home, Self-Care Instructions: Gastroesophageal Reflux Disease (ED) Additional Instructions: Your workup in the ER today was reassuring. Your stool did test positive for blood. Call Dr. Farah you schedule follow-up Use the Maalox 30 minutes before each meal You may continue your omeprazole twice daily Return for new or worsening symptoms Prescriptions: New Maalox Advanced 1,000-60 mg tablet,chewable 2 tab PO QID PRN (Reason: indigestion) Qty: 20 0RF ondansetron 4 mg tablet,disintegrating 4 mg PO Q8H PRN (Reason: nausea and vomiting) Qty: 20 0RF No Action omeprazole 40 mg Capsule,Delayed Release(Dr/Ec) See Rx Instructions .ROUTE .COMPLEX Qty: 30 3RF Rx Instructions: 40 mg orally famotidine 40 mg tablet 40 mg PO BEDTIME Qty: 30 6RF metoprolol succinate 25 mg tablet extended release 24 hr 25 mg PO DAILY Qty: 30 5RF cyanocobalamin (vitamin B-12) 500 mcg tablet 1 tab DAILY cholecalciferol (vitamin D3) 25 mcg (1,000 unit) tablet 1 tab PO DAILY cetirizine 10 mg tablet 1 tab PO DAILY PRN (Reason: Allergy Symptoms) azithromycin 500 mg tablet 500 mg PO MOWEFR@0900 Rx Instructions: Wednesday, Wednesday, Wednesday ferrous sulfate 325 mg (65 mg iron) tablet 325 mg PO Q OTHER DAY atorvastatin 40 mg Tablet 40 mg PO DAILY Qty: 30 0RF loperamide [Imodium A-D] 2 mg capsule 2 mg PO Q4H PRN (Reason: loose stool) Qty: 30 0RF Rx Instructions: administer after each loose stool until symptoms controlled; do not exceed 8 mg per 24 hrs donepezil 5 mg tablet 5 mg PO BEDTIME ethambutol 400 mg tablet 400 mg PO 3XW omeprazole 40 mg capsule,delayed release(DR/EC) 40 mg PO BID 30 Days Qty: 60 6RF Referrals: Laurence Farah MD [Physician] - (Peptic ulcer disease, guaiac-positive stool) Print Language: Ecuadorean
[2023-09-23 18:07] LABS: MANUAL DIFF FLAG NO
[2023-09-23 18:09] LABS: Basophils Percent Auto 0.3 % (0-2); Eosinophils Absolute Auto 0.1 X10*3/uL (0.0-0.4); Eosinophils Percent Auto 2.5 % (0-4); Hemoglobin 10.2 g/dl (12.0-16.0); Lymphocytes Absolute Auto 0.9 X10*3/uL (1.2-4.9); Lymphocytes Percent Auto 28.7 % (20-40); Mean Corpuscular HGB Conc 32.9 g/dl (31.0-35.0); Mean Corpuscular Hemoglobin 31.2 pg (27.0-33.0); Mean Corpuscular Volume 94.8 fL (80.0-98.0); Mean Platelet Volume 9.3 fL (9.4-12.3); Monocytes Absolute Auto 0.3 X10*3/uL (0.1-1.2); Monocytes Percent Auto 7.7 % (2-11); Neutrophils Percent Auto 60.8 % (45-73); Platelet Count 205 X10*3/uL (160-400); Red Blood Count 3.27 X10*6/uL (4.20-5.50); Red Cell Distribution Width 13.2 % (11.0-16.0); White Blood Count 3.2 X10*3/uL (4.8-10.8)
[2023-09-23 18:28] LABS: Alanine Aminotransferase 10 U/L (0-31); Albumin Level 3.3 g/dL (3.5-5.0); Alkaline Phosphatase 73 U/L (39-117); Anion Gap 11 (12-20); Aspartate Amino Transferase 16 U/L (5-31); Bilirubin Total 0.5 mg/dL (0.0-1.0); Blood Urea Nitrogen 16 mg/dL (9-16); Calcium 8.8 mg/dL (8.4-10.2); Carbon Dioxide 29 mmol/L (22-29); Chloride 102 mmol/L (96-108); Creatinine Clr Calc Pharmacy 29.9; Estimated Glomerular Filt Rate 52; Glucose Random 89 mg/dL (60-115); Magnesium 2.2 mg/dL (1.6-2.6); Potassium 3.7 mmol/L (3.3-5.1); Sodium 138 mmol/L (135-145); Total Protein 6.3 g/dL (6.5-8.0)
[2023-09-23 18:46] LABS: Influenza A PCR NEGATIVE (Negative); Influenza B PCR NEGATIVE (Negative); Resp Syncy Virus RNA Qual PCR NEGATIVE (Negative); SARS COV2 PCR INHOUSE NEGATIVE (Negative)
[2023-09-23] MEDS: Lidocaine HCl Viscous 2 % 15 ML SOLUTION MUCOUS MEM (20:18)
[2023-09-23] MEDS: Magnesium Hydrox/Alum Hydrox 30 ML ORAL.SUSP PO (20:18)
[2023-09-23] MEDS: Ondansetron ODT 4 MG TAB.RAPDIS TRANSLINGU (20:18)
[2023-09-23 20:25] LABS: OBS Int Ctl Valid YES; OBS1 POSITIVE (NEGATIVE)
[2023-09-23 20:46] VITALS: BP 123/68; PULSE 67; RESP 16; TEMP 36.3; O2SAT 99
[2023-09-23 22:02] VITALS: BP 148/85; PULSE 81; RESP 16; TEMP 36.3; O2SAT 96
== END 2023-09-23 22:03 | disposition home or self-care (01) ==
PROVIDERS: Physician Assistant Medical; Emergency Provider Internal Medicine; PCP Internal Medicine
DX: R19.5 Other fecal abnormalities (principal); K21.9 Gastro-esophageal reflux disease without esophagitis; D50.9 Iron deficiency anemia, unspecified; I12.9 Hypertensive chronic kidney disease with stage 1 through stage 4 chronic kidney disease, or unspecified chronic kidney disease; N18.9 Chronic kidney disease, unspecified; I25.10 Atherosclerotic heart disease of native coronary artery without angina pectoris; I51.81 Takotsubo syndrome; Z03.818 Encounter for observation for suspected exposure to other biological agents ruled out
CPT/HCPCS: 0241U; 80053; 82272; 83735; 85025; 99284

== ENCOUNTER 2023-10-11 09:27 | Outpatient (AMB) | payer OTHER, SELFPAY ==
--- NOTE | 2023-10-11 09:36 | A.OFFVIS_ITS ---
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 She was diagnosed with a cavitary pneumonia at the time. Then she was found to the significant liver mass. 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 She was started on chemotherapy. Ultimately underwent a PET scan demonstrated that the liver mass that trunk in the FDG activity at the cruise. However, the cavitary lung lesion actually got worse with newer lesions as well. The patient was subsequently sent for a CT-guided biopsy which demonstrated no evidence of malignancy otherwise showed necrotizing and non-necrotizing granulomas. The patient was tested for tuberculosis which was negative. At this point the patient started to cough up blood. Denies any chest pains or any significant shortness of breath. Ultimately she was referred to Pulmonary. We did review her imaging studies and her symptoms during the office. the patient denies any exposure to anybody with tuberculosis or having tuberculosis herself. Again her T spot was negative although that is not 100%. We did talk about different options. At this point reviewing the CT scan appears to have significant hilar and mediastinal lymphadenopathy. Therefore Pulmonary bronchial ultrasound bronchoscopy with sampling of the lymph nodes and also plan to do a regular bronchoscopy to assess the right lower lobe cavity. Again infection likely due to the immunocompromised state is the most likely diagnosis. Fungal infections and mycobacterial disease are high in the differential. 03/13/2022 the patient is here for a pulmonary follow-up visit. The patient is status post bronchoscopy. No evidence of any malignancy noted on her CT scan which is reassuring. Her cultures were positive for both if fungal infection and also mycobacterial infection. As of yet were still waiting for the probe on the mycobacterial culture to rule out Mycobacterium tuberculosis. She already had a negative T spot therefore is unlikely to be tuberculosis. Will likely be more non tuberculosis mycobacteria infection. She will need to be treated however. In view of the fungal infection also refer her to Dr. Mercer. Once we have the identification of the organism reason start antibacterial therapy. However, need to be very careful with adverse effects from the multiple antimicrobial agents required to treat this type of smoldering infection. Since the bronchoscopy she still complaining of sore throat. I will send her Magic mouthwash to the pharmacy. 06/08/2022 the patient is here for a pulmonary follow-up visit. The patient overall is doing well. She is tolerating the antimycobacterial medication. She never to cover consult. Clinically she is doing better. She did follow-up with Infectious Disease in no further interventions are warranted. The patient did have blood work which is reassuring although she appears to be little dehydrated. She has needs to drink water. She has been complaining of heartburn after taking the medication. I will prescribe Pepsi that she can use at nighttime. In the meantime she also needs probiotics. I will send those also to the pharmacy. If she cannot get the mass prescription she should get them [id number]. Will have her get an EKG and also chest x-ray to assess response to therapy. She will continue with daily therapy with her severe mycobacterial disease. Clinically she is doing well which is reassuring will continue to monitor her progress. 08/17/2022 the patient is here for a pulmonary follow-up visit. Overall the patient has been doing better from a respiratory status. Denies any coughing denies any congestion or hemoptysis. She is tolerating the anti my call bacterial therapy although she is getting more nauseous now and increased heartburn. She is also having issues with diarrhea. Although she looks healthy year she still not gaining significant amount of weight. We did talk about adding nutritional snacks with high-protein to try to increase her calorie intake. We did review her last chest x-ray demonstrating interval improvement no overall airspace disease. She still has a thin walled cavity in the right hemithorax. I do believe the patient is making improvements. Also her laborato ry data is reassuring. In view of her improvement in her adverse effects of the medications will go ahead and change her regimen from daily to 3 times a week. The family understands will try to keep her on the therapy until March. If the patient has a hard time with that therapy even 3 times a week eating sensitive monotherapy although that can increase the risk of resistance. 12/07/2022 the patient is here for pulmonary follow-up visit. The patient continues to do well. She is tolerating the medicine better now that is 3 times a week. Denies any worsening respiratory symptoms actually she feels okay. She also follows closely with Oncology for the liver disease. The patient did undergo a PET scan sometime in September 2022 demonstrating interval improvement in the parenchymal lung disease and appears that the cavity is smaller in size suggesting good response to therapy. She is going to continue with mycobacterial therapy 3 times a week for now. Will follow-up in 4-6 months to a ssess duration of therapy. 06/14/2023 the patient is here for a pulmonary follow-up visit. Recently she was in the hospital apparently she developed the that ST-elevation OK consistent with a broken heart syndrome. She was treated and released. While she was in a hospital she did have a repeat CTA that demonstrated interval decrease in the cavitary lesion and also improvement in the other nodular densities. She has been responding well to the antimycobacterial therapy. She has been on the therapy 3 times a week. She is having some GI upset with some heartburn. Will go ahead and increase her omeprazole to twice a day. If she continues to be symptomatic she can always call we can give her a break from the medicine. In the meantime will continue the therapy 3 times a week for the next 3-4 months and then at point decide about monotherapy. Will have to get a sputum culture to make sure that she has no longer culture positive for the mycobacterial before we do that, however. The patient also had an EKG demonstrating normal QT interval which is reassuring. She will continue with current therapy until her next follow-up in 3-4 months. 10/11/2023 the patient is here for a pulmonary follow-up visit. The patient has been feeling better. She has significant GI discomfort. Significant acid reflux. She has actually been losing weight because of significant symptoms. She was placed on a H2 noemi in addition to the PPI. Her symptoms have been getting better. She has been trying more although she is limited because of the reflux diet. She has been doing well from a respiratory status. Will go ahead and decrease it to monotherapy since she is symptomatic. Will stop the ethambutol and continue the azithromycin for now. If she continues to be symptomatic can also consider decreasing the azithromycin to 250 mg. Although she is probably better off the 500. She is going to monitor closely her symptoms. We did look at her blood work which is all reassuring. She does have some anemia and leukopenia but is at baseline. [facility] Medical History Sore throat 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 Hemoptysis Lymphadenopathy Injury of right knee Elevated blood sugar Chronic renal failure Renal cyst Vitamin deficiency, unspecified Allergic rhinitis Depressive disorder Osteoarthritis Obesity HTN (hypertension) Anemia Surgical History History of esophagogastroduodenoscopy (EGD) (~2017) History of section History of liver biopsy (~2021) Family History Father Cancer Mother Cancer Paternal Grandmother Cancer Social History Household Members: None Housing: Apartment Are you a primary career development consultant to a significant other at home: No Do you presently have visiting nurse or other home services: Yes Patient Tobacco Use Status: Never used Tobacco service: No Current occupational status: retired and disabled Review of Systems Const Denies excessive sweating, Reports fatigue, Denies fever(s) and Reports weight loss Eyes Denies change in vision and Denies itchy eyes ENT Denies change in voice, Reports otalgia and Reports sore throat Card Denies chest pain Resp Denies cough and Denies hemoptysis GI Reports as per HPI, Reports dyspepsia and Reports heartburn Musc Reports myalgias Neuro Reports no additional complaints Endo Denies excessive sweating and Reports fatigue Sumit/Lymph Denies easy bleeding and Denies easy bruising Aller/Immun Denies itchy eyes Physical Exam Vital Signs: Last Vital Signs Pulse 60 10/11/23 09:38 BP 110/60 10/11/23 09:38 Pulse Ox 98 10/11/23 09:38 Oxygen Delivery Method Room Air 10/11/23 09:38 BMI result Body Mass Index 19.0 Const General: comfortable and alert HEENT Head: Yes normal to inspection Eyes General: appearance normal, both eyes and all related structures Neck Neck: Yes supple Chest Chest palpation & inspection: normal inspection of the chest Resp Effort & Inspection: normal respiratory effort Auscultation: no rales, no rhonchi, no wheezes and diminished lung sounds Cardio Rate: regular rate Rhythm: regular rhythm Heart sounds: S1 normal heart sound present and S2 normal heart sound present GI Auscultation: normal bowel sounds General: Yes no CVA tenderness Back/Spine/Pelvis Back: no CVA tenderness Extrem General: No clubbing and No cyanosis Left lower extremity: ankle Details: tenderness Location: anteromedially (with induration, cord like) Assessment & Plan Assessment & Plan (1) Cavitary lesion of lung: Code(s): J98.4 - Other disorders of lung Category: Medical (2) Lymphadenopathy: Code(s): R59.1 - Generalized enlarged lymph nodes Category: Medical (3) Mycobacterial disease: Code(s): A31.9 - Mycobacterial infection, unspecified Category: Medical Plan continue Azithromycin MWF stop Ethambutol EKG/CXR/Bloodwork ok continue PPI probiotics F/U 3-4 months Coding Level of Care Code Est Pt Level 4 (94226) Diagnoses Cavitary lesion of lung J98.4 Lymphadenopathy R59.1 Mycobacterial disease A31.9 Time Spent (min) 16
[2023-10-11 09:38] VITALS: BP 110/60; PULSE 60; O2SAT 98; BMI 19.0
== END 2023-10-11 10:51 | disposition home or self-care (01) ==
PROVIDERS: PCP Internal Medicine; Visit Provider Hospitalist
DX: J98.4 Other disorders of lung (principal); R59.1 Generalized enlarged lymph nodes; A31.9 Mycobacterial infection, unspecified
CPT/HCPCS: 99214

== ENCOUNTER → 2023-10-11 09:27 | Outpatient (BNVA) | payer OTHER, SELFPAY | PROVIDERS: PCP Internal Medicine; Visit Provider Hospitalist | DX: J98.4 Other disorders of lung (principal); R59.1 Generalized enlarged lymph nodes; A31.9 Mycobacterial infection, unspecified | CPT/HCPCS: 99212 ==

== ENCOUNTER 2023-11-02 09:45 | Outpatient (AMB) | payer OTHER, SELFPAY ==
--- NOTE | 2023-11-02 09:45 | A.OFFVIS_ITS ---
Vital Signs 11/02/23 09:48 Height 5 ft 2 in Weight 91 lb BMI 16.6 BP 98/72 Blood Pressure Location Rt brachial Position Sitting Intake Visit Reasons: [facility] ref for VV Intake Note: Patient presents for evaluations for varicose veins. jeramy has varicose veins on both legs with a lot of discomfort and swelling . [facility] Required: Yes [facility] Of [facility] Name: cam london Allergies No Known Allergies [No Known Allergies*] Allergy (Verified 11/02/23 09:50) HPI HPI [facility] ref for VV: Details: Pleasant 78-year-old female patient presents for painful varicose veins. Complaints include pain over varicosities, swelling of lower extremities, cramping, fatigue, and heaviness of the lower extremities. It has been affecting there daily activities including walking. It is noted more so in right leg. Patient denies any previous venous surgery or injections. Patient denies any history of DVT/ PE. Patient denies any history of phlebitis. Trial of compression includes - [id number] They now present for vascular evaluation regarding their varicose veins. 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 Hemoptysis Lymphadenopathy Injury of right knee Elevated blood sugar Chronic renal failure Renal cyst Vitamin deficiency, unspecified Allergic rhinitis Depressive disorder Osteoarthritis Obesity HTN (hypertension) Anemia Surgical History History of esophagogastroduodenoscopy (EGD) (~2017) History of section History of liver biopsy (~2021) Family History Father Cancer Mother Cancer Paternal Grandmother Cancer Social History Household Members: None Housing: Apartment Are you a primary ostomy care nurse to a significant other at home: No Do you presently have visiting nurse or other home services: Yes Patient Tobacco Use Status: Never used Tobacco service: No Current occupational status: retired and disabled Review of Systems Const Reports as per HPI ENT Reports no additional complaints Card Denies chest pain, Denies chest pain at rest and Denies chest pain with activity Resp Denies chest congestion and Denies cough GI Reports no additional complaints Musc Details: pain over varicosities, aching of lower extremities, swelling, cramping, heaviness and tiredness, itching Denies abnormal gait Skin/Breast Reports pruritus and Denies wounds Neuro Reports no additional complaints and Denies abnormal gait Psych Denies no additional complaints Physical Exam Vital Signs: Last Vital Signs BP 98/72 11/02/23 09:48 BMI result Body Mass Index 16.6 Const General: cooperative, healthy appearing and comfortable Orientation/consciousness: oriented to person, oriented to place and oriented to time Neck Carotids: no bruits Chest Chest palpation & inspection: normal inspection of the chest and normal palpation of entire chest wall Resp Effort & Inspection: normal respiratory effort and able to speak in complete sentences Cardio Rate: regular rate Heart sounds: S1 normal heart sound present and S2 normal heart sound present Peripheral pulses: Peripheral pulses 2+ throughout GI Inspection: Yes normal to inspection Skin Other: +2 edema, large rope-like varicosities greater than 4 mm CEAP Classification C4 - skin color changes Ep - Etiology Primary As - superficial veins P - reflux General skin exam: dry skin Neuro General: oriented to person, oriented to place and oriented to time Extrem Right lower extremity: full ROM, normal capillary refill and edema Left lower extremity: full ROM, normal capillary refill and edema Psych Mental Status: mental status grossly normal Assessment & Plan Assessment & Plan (1) Varicose veins of right lower extremity with inflammation: Code(s): I83.11 - Varicose veins of right lower extremity with inflammation Category: Medical Plan: In short, the patient has evidence of venous insufficiency. I have discussed the pathophysiology with the patient. In addition I have provided informational material regarding venous disease to the patient. We have discussed conservative measures including compression, elevation, and exercise. I have also provided a handout regarding appropriate use of compression stockings and where to purchase good compression stockings as well. I have taken the liberty of ordering venous insufficiency testing with the patient. They will follow up with me after testing. The patient had an opportunity to ask questions regarding the treatment plan. All questions were answered. Imaging studies, laboratory studies and physical exam results were discussed and reviewed in detail. No major barriers to unders tanding were identified. The patient expressed understanding and agreement with the above treatment plan. The patient is aware they should contact our office by phone for worsening of the current condition or the appearance of new symptoms. Thank you for allowing me to participate in the vascular care of this patient. If you have any questions or concerns regarding the treatment for the above c ondition please do not hesitate to contact me. The office telephone contact is [phone]. This note is constructed using voice recognition software. While every effort has been made to ensure accuracy, narrative writer errors may have been included. Thank you for allowing me to participate in the care of your patient. Yours sincerely, Lukasz Dinh MD, FACS, R.P.V.I. Orders: Orders US venous duplex LE BI 1 Week I83.11 - Varicose veins of right lower extremity with inflammation Coding Level of Care Code Est Pt Level 4 (22220) Diagnoses Varicose veins of right lower extremity with inflammation I83.11
[2023-11-02 09:48] VITALS: BP 98/72; BMI 16.6
== END 2023-11-02 10:58 | disposition home or self-care (01) ==
PROVIDERS: PCP Internal Medicine; Visit Provider Surgery Vascular Surgery
DX: I83.11 Varicose veins of right lower extremity with inflammation (principal)
CPT/HCPCS: 99213

== ENCOUNTER → 2023-11-02 09:45 | Outpatient (BNVA) | payer OTHER, SELFPAY | PROVIDERS: PCP Internal Medicine; Visit Provider Surgery Vascular Surgery | DX: I83.11 Varicose veins of right lower extremity with inflammation (principal) | CPT/HCPCS: 99212 ==

== ENCOUNTER 2023-11-25 14:23 | Emergency (ER) | payer OTHER, SELFPAY ==
--- NOTE | ~2023-11-25 | XR_ITS ---
EXAMINATION: XR CHEST CLINICAL INFORMATION: PAREDES COMPARISON: Chest radiograph 05/24/2023 TECHNIQUE: AP and lateral views of the chest were obtained. FINDINGS: The lungs are well expanded. Trace bilateral pleural effusions in the posterior costophrenic angles. EKG leads overlie the chest. Stable cyst in the right midlung, partially obscured by overlying EKG leads. Left lung base nodular opacity. No pulmonary edema or pneumothorax. The cardiomediastinal silhouette is within normal limits for technique and unchanged. No acute osseous abnormality. XR/XR chest 2V IMPRESSION: 1. Trace bilateral pleural effusions. 2. Left lung base nodular opacity, which may represent nipple shadow. Recommend repeat chest radiograph with nipple markers.
--- NOTE | 2023-11-25 14:32 | ECG_ITS ---
Test Reason : CHEST PAIN Blood Pressure : / mmHG Vent. Rate : 059 BPM Atrial Rate : 059 BPM P-R Int : 128 ms QRS Dur : 092 ms QT Int : 422 ms P-R-T Axes : 076 -23 025 degrees QTc Int : 417 ms Sinus bradycardia Incomplete right bundle branch block Borderline ECG When compared with ECG of 24-MAY-2023 21:07, Criteria for Septal infarct are no longer Present Referred By: Generic ED Physician Electronically Signed By:KAYE ROSS MD
[2023-11-25 14:44] VITALS: BP 126/60; BP 128/55; PULSE 58; PULSE 61; RESP 14; TEMP 36.9; O2SAT 98; O2SAT 99; BMI 18.3
--- NOTE | 2023-11-25 16:01 | ED.GENADULT ---
HPI - General Adult General Chief complaint: General Medical Stated complaint: CC; Chest pain, head & neck chronic Time Seen by Provider: 11/25/23 15:54 Source: patient, family, EMS and RN notes reviewed Mode of arrival: EMS Limitations: no limitations History of Present Illness ED Provider: Gabriela HPI narrative: Patient is a 78-year-old female with history of NSTEMI 2-3 months ago, chronic renal failure, HTN, anemia, osteoarthritis, Takotsubo cardiomyopathy, cavitary lesion of lung presenting to the emergency department with complaint of 2-3 days of dyspnea on exertion, lower extremity edema, fluctuation in weight for the past 3 weeks. Daughters state they have been monitoring patient's weight and it has been ranging between 91-98lbs. Patient reports an episode of abdominal burning yesterday which has since resolved. She denies any nausea, vomiting, diarrhea. Denies current chest pain. Denies dyspnea at rest. Denies palpitations. Denies cough or fever. MD complaint: dyspnea, lower extremity edema Onset (ago): day(s) Exacerbating factors: movement Treatments prior to arrival: none Related Data Home Medications ?Medication ?Instructions ?Recorded ?Confirmed cholecalciferol (vitamin D3) 25 1 tab PO DAILY 07/05/21 10/20/23 mcg (1,000 unit) tablet cyanocobalamin (vitamin B-12) 500 1 tab DAILY 07/05/21 10/20/23 mcg tablet cetirizine 10 mg tablet 1 tab PO DAILY PRN Allergy Symptoms 07/23/21 10/20/23 donepezil 5 mg tablet 5 mg PO BEDTIME 02/12/22 10/20/23 azithromycin 500 mg tablet 500 mg PO MOWEFR@0900 05/25/23 10/20/23 ferrous sulfate 325 mg (65 mg 325 mg PO Q OTHER DAY 05/25/23 10/20/23 iron) tablet ethambutol 400 mg tablet 400 mg PO 3XW 06/14/23 10/20/23 aluminum-mag hydroxide-simethicone 200 ml PO DAILY 10/20/23 10/20/23 200 mg-200 mg-20 mg/5 mL oral susp Previous Rx's ?Medication ?Instructions ?Recorded atorvastatin 40 mg tablet 40 mg PO DAILY #30 tabs 05/26/23 loperamide 2 mg capsule (Imodium 2 mg PO Q4H PRN loose stool #30 07/12/23 A-D) caps omeprazole 40 mg capsule,delayed See Rx Instructions .Route 08/06/23 release .COMPLEX #30 caps famotidine 40 mg tablet 40 mg PO BEDTIME #30 tabs 08/30/23 metoprolol succinate 25 mg 25 mg PO DAILY #30 tabs 09/01/23 tablet,extended release 24 hr calcium carbonate 1,000 2 tab PO QID PRN indigestion #20 09/23/23 mg-simethicone 60 mg chewable tabs tablet (Maalox Advanced) ondansetron 4 mg disintegrating 4 mg PO Q8H PRN nausea and 09/23/23 tablet vomiting #20 tabs furosemide 20 mg tablet 20 mg PO DAILY #3 tabs 11/25/23 Allergies Allergy/AdvReac Type Severity Reaction Status Date / Time No Known Allergies Allergy Verified 11/25/23 14:51 [No Known Allergies*] Review of Systems Review of Systems: As per HPI. 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 Hemoptysis Lymphadenopathy Injury of right knee Elevated blood sugar Chronic renal failure Renal cyst Vitamin deficiency, unspecified Allergic rhinitis Depressive disorder Osteoarthritis Obesity HTN (hypertension) Anemia Surgical History History of esophagogastroduodenoscopy (EGD) (~2017) History of section History of liver biopsy (~2021) Family History Family History Father Cancer Mother Cancer Paternal Grandmother Cancer Social History Social History Household Members: None Housing: Apartment Are you a primary career and transition teacher to a significant other at home: No Do you presently have visiting nurse or other home services: Yes Patient Tobacco Use Status: Never used Tobacco Advance Directives: No Advance Directives Information Provided: Yes service: No Current occupational status: retired and disabled Physical Exam ED Vital Signs: Vital Signs - 24 hr 11/25/23 14:44 11/25/23 16:27 11/25/23 18:57 Temperature 98.5 F 98.3 F 98.1 F Pulse Rate 61 52 52 Respiratory Rate 14 15 12 Blood Pressure 128/55 L 136/59 L 132/56 L Pulse Oximetry 99 97 97 Oxygen Delivery Method Room Air Room Air Room Air BMI result Body Mass Index 18.3 Vital signs have been reviewed and appear to be correct. Blood pressure normal. Heart rate normal. Respiratory rate normal. Temperature normal. Oxygen saturation normal. Const General: cooperative and no acute distress Nutritional Appearance: thin Orientation/consciousness: oriented to person, oriented to place, oriented to time and patient oriented x3 Limitations: no limitations HENMT Head: Yes normocephalic and Yes atraumatic Ears: external ears normal General nose exam: Normal external nose present Face and sinus: Yes face symmetric Mouth: oropharynx normal and moist mucous membranes Throat: Yes uvula midline Eyes Pupils: Equal, round and reactive pupils present Neck Neck: Yes normal visual inspection and Yes supple Resp Effort & Inspection: normal respiratory effort and able to speak in complete sentences Auscultation: clear to auscultation bilaterally and diminished lung sounds diffuse Cardio Rate: regular rate Rhythm: regular rhythm Heart sounds: S1 normal heart sound present and S2 normal heart sound present GI Palpation (GI): Soft to palpation and nontender Auscultation: normoactive bowel sounds General: Yes no CVA tenderness Back/Spine/Pelvis Back: no CVA tenderness Skin General skin exam: elasticity normal and turgor normal Neuro General: oriented to person, oriented to place, oriented to time, patient oriented x3, moves all extremities, no focal motor deficits and CN's II-XI intact bilaterally Cranial nerves: Yes Equal, round and reactive pupils present Cognition (Neuro): normal cognition Extrem General: Yes full ROM, Yes capillary refill normal, Yes normal exam except as noted and Yes no calf tenderness Right lower extremity: ankle Details: edema Details: pitting and 1+ and foot Details: vascular exam Details: dorsalis pedis pulse present and posterior tibial pulse present Left lower extremity: ankle Details: pitting edema Details: pitting and 1+ and foot Details: vascular exam Details: dorsalis pedis pulse present and posterior tibial pulse present Psych Mental Status: mental status grossly normal Affect: normal affect Thought process: Normal thought process present Medical Decision Making Medical Decision Making MDM Narrative: Patient is a 78-year-old female with history of NSTEMI 2-3 months ago, chronic renal failure, HTN, anemia, osteoarthritis, Takotsubo cardiomyopathy, cavitary lesion of lung presenting to the emergency department with complaint of 2-3 days of dyspnea on exertion, lower extremity edema, fluctuation in weight for the past 3 weeks. On exam patient is awake, A+Ox3, VS WNL, afebrile, normal neurological exam without focal deficits, physical exam findings as above. Given reported symptoms and physical exam findings, initial differential includes CHF, dependent edema, viral illness, covid, flu, bronchitis, pneumonia. Labs notable for negative troponin, mildly elevated BNP consistent with baseline, elevated BUN with normal creatinine. X-ray chest notable for trace bilateral pleural effusions. My interpretation is in agreement with the radiologist's interpretation. Feel patient is stable for discharge home. Will prescribe 20m furosemide x 3 days and instructed patient and family to schedule follow up appointment with event technician as soon as possible. Return precautions discussed at bedside. Patient and family verbalized understanding of and agreement with plan. Differential Diagnosis Differential Diagnoses: The differential diagnosis associated with the presentation includes As per [facility]. Admission/Observation Consideration of admission/observation: Escalation of care including admission/observation considered Patient would have been admitted to the hospital had their work up had any findings where hospital admission was appropriate and their clinical presentation warranted hospital admission. Lab Data [facility] Lab Attestation statement: I reviewed the patient's lab results. As per [facility] 11/25/23 16:25 11/25/23 16:25 Labs: Lab Results 11/25/23 Range/Units 16:25 WBC 4.1 L (4.8-10.8) X10*3/uL RBC 3.87 L (4.20-5.50) X10*6/uL Hgb 12.0 (12.0-16.0) g/dl Hct 36.7 L (37.0-47.0) % MCV 94.8 (80.0-98.0) fL MCH 31.0 (27.0-33.0) pg MCHC 32.7 (31.0-35.0) g/dl RDW 14.0 (11.0-16.0) % Plt Count 229 (160-400) X10*3/uL MPV 9.6 (9.4-12.3) fL Immature Gran % (Auto) 0.2 (0.0-0.4) % Neut % (Auto) 67.5 (45-73) % Lymph % (Auto) 25.4 (20-40) % Aiken % (Auto) 5.7 (2-11) % Eos % (Auto) 0.7 (0-4) % Baso % (Auto) 0.5 (0-2) % Lymph # (Auto) 1.0 L (1.2-4.9) X10*3/uL Aiken # (Auto) 0.2 (0.1-1.2) X10*3/uL Eos # (Auto) 0.0 (0.0-0.4) X10*3/uL Baso # (Auto) 0.0 (0.0-0.2) X10*3/uL Abs Immat Gran (auto) 0.01 (0.00-0.03) X10*3/uL Absolute Neuts (auto) 2.7 (2.0-8.3) x10*3/uL Absolute Nucleated RBC 0.000 (0.0-0.012) X10*3/uL Nucleated RBC % (auto) 0.0 (0.0-0.2) /100WBC Sodium 141 (135-145) mmol/L Potassium 4.0 (3.3-5.1) mmol/L Chloride 103 (96-108) mmol/L Carbon Dioxide 29 (22-29) mmol/L Anion Gap 13 (12-20) BUN 25 H (9-16) mg/dL Creatinine 0.91 (0.5-1.4) mg/dL Estim Creat Clear Calc 37.7 Estimated GFR > 60 Random Glucose 83 (60-115) mg/dL Calcium 10.1 D (8.4-10.2) mg/dL Troponin I High Sens < 2.7 D (<3.5-17.0) ng/L B-Natriuretic Peptide 164 H (<100) pg/mL Independent Interpretation I performed an independent interpretation of an: Plain X-Ray Interpretation: X-ray chest notable for trace bilateral pleural effusions. Radiology Impression Discussion of test interpretation with radiology: I have reviewed the radiologist's reading. Radiologist Impression: XR/XR chest 2V IMPRESSION: 1. Trace bilateral pleural effusions. 2. Left lung base nodular opacity, which may represent nipple shadow. Recommend repeat chest radiograph with nipple markers. Independent Historian Clinical information obtained from an independent historian. History obtained from or confirmed by: Other (daughters) External Record Review External record reviewed: Inpatient record, Office record and Outpatient record Prescription Management I considered prescription management with: Other Discharge Plan Discharge Clinical Impression: PAREDES (dyspnea on exertion), Pedal edema Patient Disposition: Home, Self-Care Instructions: Furosemide (By mouth), Leg Edema (ED), Dyspnea (ED), Edema (ED) Additional Instructions: You were evaluated in the emergency department today for shortness of breath and swelling to your lower extremities. Your chest x-ray and labs were reassuring. You are being prescribed a diuretic (water pill) called furosemide for the next 3 days. PLEASE CALL YOUR ACID ADJUSTER TO NOTIFY THEM OF YOUR EMERGENCY DEPARTMENT VISIT AND TO SCHEDULE A FOLLOW-UP APPOINTMENT. We recommend he follow up with your primary care provider as well. Return to the emergency department if you experience chest pain, palpitations, worsening shortness of breath or difficulty breathing, fever or any other concerning symptoms. Prescriptions: New furosemide 20 mg tablet 20 mg PO DAILY Qty: 3 0RF No Action omeprazole 40 mg Capsule,Delayed Release(Dr/Ec) See Rx Instructions .ROUTE .COMPLEX Qty: 30 3RF Rx Instructions: 40 mg orally famotidine 40 mg tablet 40 mg PO BEDTIME Qty: 30 6RF metoprolol succinate 25 mg tablet extended release 24 hr 25 mg PO DAILY Qty: 30 5RF cyanocobalamin (vitamin B-12) 500 mcg tablet 1 tab DAILY cholecalciferol (vitamin D3) 25 mcg (1,000 unit) tablet 1 tab PO DAILY cetirizine 10 mg tablet 1 tab PO DAILY PRN (Reason: Allergy Symptoms) alum-mag hydroxide-simeth [Mylanta] 200-200-20 mg/5 mL Suspension 200 ml PO DAILY azithromycin 500 mg tablet 500 mg PO MOWEFR@0900 Rx Instructions: Wednesday, Wednesday, Wednesday ferrous sulfate 325 mg (65 mg iron) tablet 325 mg PO Q OTHER DAY atorvastatin 40 mg Tablet 40 mg PO DAILY Qty: 30 0RF loperamide [Imodium A-D] 2 mg capsule 2 mg PO Q4H PRN (Reason: loose stool) Qty: 30 0RF Rx Instructions: administer after each loose stool until symptoms controlled; do not exceed 8 mg per 24 hrs Maalox Advanced 1,000-60 mg tablet,chewable 2 tab PO QID PRN (Reason: indigestion) Qty: 20 0RF ondansetron 4 mg tablet,disintegrating 4 mg PO Q8H PRN (Reason: nausea and vomiting) Qty: 20 0RF donepezil 5 mg tablet 5 mg PO BEDTIME ethambutol 400 mg tablet 400 mg PO 3XW Print Language: Chinese
[2023-11-25 16:27] VITALS: BP 136/59; PULSE 52; RESP 15; TEMP 36.8; O2SAT 97
[2023-11-25 16:31] LABS: MANUAL DIFF FLAG NO
[2023-11-25 16:32] LABS: Basophils Percent Auto 0.5 % (0-2); Eosinophils Percent Auto 0.7 % (0-4); Hematocrit 36.7 % (37.0-47.0); Imm Gran Abs Auto 0.01 X10*3/uL (0.00-0.03); Imm Gran Pct Auto 0.2 % (0.0-0.4); Lymphocytes Percent Auto 25.4 % (20-40); Mean Corpuscular HGB Conc 32.7 g/dl (31.0-35.0); Mean Corpuscular Volume 94.8 fL (80.0-98.0); Mean Platelet Volume 9.6 fL (9.4-12.3); Monocytes Absolute Auto 0.2 X10*3/uL (0.1-1.2); Monocytes Percent Auto 5.7 % (2-11); Neutrophils Absolute Auto 2.7 x10*3/uL (2.0-8.3); Neutrophils Percent Auto 67.5 % (45-73); Platelet Count 229 X10*3/uL (160-400); Red Blood Count 3.87 X10*6/uL (4.20-5.50); White Blood Count 4.1 X10*3/uL (4.8-10.8)
[2023-11-25 16:44] LABS: Anion Gap 13 (12-20); Blood Urea Nitrogen 25 mg/dL (9-16); Calcium 10.1 mg/dL (8.4-10.2); Carbon Dioxide 29 mmol/L (22-29); Chloride 103 mmol/L (96-108); Creatinine Clr Calc Pharmacy 37.7; Estimated Glomerular Filt Rate > 60; Glucose Random 83 mg/dL (60-115); Sodium 141 mmol/L (135-145)
[2023-11-25 16:52] LABS: B Type Natriuretic Peptide 164 pg/mL (<100)
[2023-11-25 16:54] LABS: Troponin-I High Sensitivity < 2.7 ng/L (<3.5-17.0)
[2023-11-25 18:57] VITALS: BP 132/56; PULSE 52; RESP 12; TEMP 36.7; O2SAT 97
[2023-11-25 19:23] VITALS: BP 132/56; PULSE 52; RESP 12; TEMP 36.7; O2SAT 97
== END 2023-11-25 19:24 | disposition home or self-care (01) ==
PROVIDERS: Emergency Provider Emergency Medicine Emergency Medical Services; PCP Internal Medicine
DX: R06.00 Dyspnea, unspecified (principal); R60.9 Edema, unspecified; N18.9 Chronic kidney disease, unspecified; I13.10 Hypertensive heart and chronic kidney disease without heart failure, with stage 1 through stage 4 chronic kidney disease, or unspecified chronic kidney disease; I43 Cardiomyopathy in diseases classified elsewhere; I12.9 Hypertensive chronic kidney disease with stage 1 through stage 4 chronic kidney disease, or unspecified chronic kidney disease; Z79.899 Other long term (current) drug therapy
CPT/HCPCS: 36415; 71046; 80048; 83880; 84484; 85025; 93005; 99283; 99284

== ENCOUNTER → 2023-11-25 14:32 | Outpatient (BNV) | payer OTHER, SELFPAY | PROVIDERS: Emergency Provider Emergency Medicine Emergency Medical Services; PCP Internal Medicine; Visit Provider Internal Medicine Cardiovascular Disease | DX: R07.9 Chest pain, unspecified (principal) | CPT/HCPCS: 93010 ==

== ENCOUNTER 2023-12-02 12:58 | Outpatient (AMB) | payer OTHER, SELFPAY ==
--- NOTE | 2023-12-02 13:01 | MHC.OFFVIS ---
Vital Signs 12/02/23 13:02 Height 5 ft 2 in Weight 93 lb 14.671 oz BMI 17.2 BP 102/60 Blood Pressure Location Lt brachial Position Sitting Pulse 63 Pulse Source Pulse Oximeter Intake [place] [facility] [place] [facility] Inbound Sales Manager Required: No Pharmaceutical Service Representative: Pharmaceutical Service Representative Present Accompanied by: Daughter Allergies No Known Allergies [No Known Allergies*] Allergy (Verified 12/02/23 13:05) Medication List - Last Reconciled 12/02/23 by ALYSHA Lamar alum-mag hydroxide-simeth 200-200-20 mg/5 mL 200 mL PO DAILY atorvastatin 40 mg PO DAILY calcium carbonate-simethicone 1,000-60 mg (Maalox Advanced) 2 tabs PO QID PRN cetirizine 1 tab PO DAILY PRN cholecalciferol (vitamin D3) 1 tab PO DAILY cyanocobalamin (vitamin B-12) 1 tab DAILY donepezil 5 mg PO BEDTIME famotidine 40 mg PO BEDTIME ferrous sulfate 325 mg PO Q OTHER DAY furosemide 20 mg PO DAILY loperamide (Imodium A-D) 2 mg PO Q4H PRN metoprolol succinate ER 25 mg PO DAILY omeprazole 40 mg orally ondansetron 4 mg PO Q8H PRN HPI HPI [facility]: Details: Crystal is a 78-year-old female with past medical history of metastatic lung CA with carcinoma of liver who Dr. Mario. She was [place] [facility] [place] with report of abdominal discomfort and noted to have elevation in her troponin. She was treated for NSTEMI. Her echocardiogram showed EF 40-45% with regional wall motion abnormalities. She was transferred to [facility] for cardiac catheterization showing no significant CAD. She was suspected to have takotsubo cardiomyopathy. A follow-up echo showed normalization of EF and wall motion. She was doing well then recently reported increasing shortness of breath and leg edema. She was seen in the ER on 11/25/2023. Her BNP was slightly elevated and chest x-ray showed trace bilateral effusions. She was given Lasix 20 mg p.o. x3 days and referred back to Cardiology in follow-up. Today she reports that her breathing has improved since taking the Lasix. She states she had been noticing shortness of breath with physical activity. She has not had PND, orthopnea. She has been experiencing some lower leg edema, left greater than right. No chest discomfort at rest or with activity. No palpitations, lightheadedness, presyncope, syncope, falls. She has had no recent change to her health condition. Her cancer is being followed by periodic PET scans. She has been taking all her meds as directed. Family member is present and assisting with Scottish translation at their request. Permit signed. 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 Hemoptysis Lymphadenopathy Injury of right knee Elevated blood sugar Chronic renal failure Renal cyst Vitamin deficiency, unspecified Allergic rhinitis Depressive disorder Osteoarthritis Obesity HTN (hypertension) Anemia Surgical History History of esophagogastroduodenoscopy (EGD) (~2017) History of section History of liver biopsy (~2021) Family History Father Cancer Mother Cancer Paternal Grandmother Cancer Social History Household Members: None Housing: Apartment Are you a primary home care manager to a significant other at home: No Do you presently have visiting nurse or other home services: Yes Alcohol intake: never Patient Tobacco Use Status: Never used Tobacco service: No Current occupational status: retired and disabled Review of Systems Const All systems reviewed & are unremarkable except as noted in HPI and below ENT Denies dizziness Card Denies chest pain, Denies chest pain at rest, Denies chest pain with activity, Denies rapid heart rate, Denies pedal edema, Denies edema, Denies leg edema, Denies lightheadedness, Denies palpitations, Denies dyspnea, Denies dyspnea on exertion and Denies orthopnea Resp Denies cough, Denies dyspnea and Denies dyspnea on exertion GI Denies hematochezia and Denies change in stool character Musc Details: swelling in legs - left > right Reports abnormal gait, Denies limited range of motion, Denies muscle cramps, Reports muscle weakness, Denies numbness, Denies radiating pain into limb, Denies stiffness and Denies tingling Neuro Reports abnormal gait, Denies dizziness, Denies numbness and Denies tingling Endo Denies palpitations Physical Exam Vital Signs: BMI result Body Mass Index 17.2 Const Other: petite, frail elderly General: cooperative, comfortable and no acute distress Orientation/consciousness: patient oriented x3 Neck Neck: Yes normal visual inspection and Yes no JVD Resp Effort & Inspection: normal respiratory effort Auscultation: clear to auscultation bilaterally, no rales, no rhonchi and no wheezes Cardio Jugular venous distension: no JVD Rate: regular rate Rhythm: regular rhythm Heart sounds: S1 normal heart sound present, S2 normal heart sound present, no murmurs and no rubs Neuro General: patient oriented x3 Extrem Other: pitting edema each lower leg, L > R Psych Appearance: grossly normal Mental Status: mental status grossly normal Speech and movement: Normal speech and movement present Assessment & Plan Assessment & Plan (1) Takotsubo cardiomyopathy: Code(s): I51.81 - Takotsubo syndrome Category: Medical Plan: Present[place] [facility] [place] with report of abdominal discomfort. Initial testing showed elevation in troponin, peaked at 571. EKG showed sinus rhythm with incomplete right bundle branch block, no acute ST or T-wave abnormalities. An echocardiogram showed EF 40-45%, regional wall motion abnormality inferiorly and anteriorly, grade 2 diastolic dysfunction. She was managed medically then transferred to [facility] for cardiac catheterization which was done on 05/27/2023 showing a right coronary dominant system with no significant coronary artery disease. Based on her elevated troponins and echo findings she was then thought to have takotsubo cardiomyopathy. Her blood pressure and heart rate runs low. She has been on low-dose metoprolol. A follow-up echocardiogram was done on 07/02/2023 showing EF 55-60% and no regional wall motion abnormalities. She was recently seen in the emergency room with increasing shortness of breath and leg edema. Her BNP was slightly elevated at 164. Troponins were negative. EKG did not show ischemia. Her chest x-ray showed trace bilateral effusions. She was given Lasix 20 mg daily x3 days. Today she reports that this has helped with her shortness of breath and has improved her leg swelling. She continues to have some pitting leg edema, left greater than right. On exam she does not appear fluid overloaded with the exception of the leg edema. She admits to having increased salt in her diet as her neighbor has been cooking for her. It is possible that the increased salt could be contributing to this fluid retention. Could also be a recurrent drop in her EF. Will check a limited echocardiogram to reassess EF and wall motion. Instructed on greatly reducing the salt in her diet. Signs and symptoms of heart failure reviewed with her. Will give her Lasix 20 mg p.r.n. that she can use for shortness of breath or edema. Cardiology follow-up in 4-6 weeks, sooner if needed. (2) Non-ST elevation [place] (NSTEMI): Code(s): I21.4 - Non-ST elevation (NSTEMI) myocardial infarction Category: Medical Plan: As above (3) S/P cardiac catheterization: Comment: 05/27/2023, right-dominant system, RCA no significant disease, left main minimal ostial disease, left circumflex and LAD no significant disease Code(s): Z98.890 - Other specified postprocedural states Category: Surgical Plan: As above (4) Carcinoma of liver: Onset Date: ~2021 Code(s): C22.0 - Liver cell carcinoma Category: Medical Plan: Follows with Dr. Mario. (5) Shortness of breath: Code(s): R06.02 - Shortness of breath Category: Medical Plan: As above (6) Edema: Code(s): R60.9 - Edema, unspecified Category: Medical Plan: As above Plan Time spent on chart review, documentation, interview assessment Orders: Orders CA Echo Limited Today I51.81 - Takotsubo syndrome, R06.02 - Shortness of breath, R60.9 - Edema, unspecified Medications: Changed From furosemide 20 mg PO DAILY 3 tabs 0RF To furosemide 20 mg PO DAILY PRN 30 tabs 0RF swelling, shortness of breath Coding Level of Care Code Est Pt Level 4 (57106) Diagnoses Takotsubo cardiomyopathy I51.81 Non-ST elevation [place] (NSTEMI) I21.4 S/P cardiac catheterization Z98.890 Carcinoma of liver C22.0 Shortness of breath R06.02 Edema R60.9 Time Spent (min) 28
[2023-12-02 13:02] VITALS: BP 102/60; PULSE 63; BMI 17.2
== END 2023-12-02 13:35 | disposition home or self-care (01) ==
PROVIDERS: PCP Internal Medicine; Visit Provider Nurse Practitioner Family
DX: I51.81 Takotsubo syndrome (principal); I21.4 Non-ST elevation (NSTEMI) myocardial infarction; Z98.890 Other specified postprocedural states; C22.0 Liver cell carcinoma; R06.02 Shortness of breath; R60.9 Edema, unspecified
CPT/HCPCS: 99214

== ENCOUNTER → 2023-12-02 12:58 | Outpatient (BNVA) | payer OTHER, SELFPAY | PROVIDERS: PCP Internal Medicine; Visit Provider Nurse Practitioner Family | DX: I51.81 Takotsubo syndrome (principal); I21.4 Non-ST elevation (NSTEMI) myocardial infarction; R06.02 Shortness of breath; R60.9 Edema, unspecified; C22.0 Liver cell carcinoma; Z98.890 Other specified postprocedural states | CPT/HCPCS: 99212 ==

== ENCOUNTER 2023-12-14 07:53 | Outpatient (AMB) | payer OTHER, SELFPAY ==
[2023-12-14 08:14] VITALS: BP 96/48; PULSE 70; BMI 16.9
--- NOTE | 2023-12-14 08:14 | A.OFFVIS_ITS ---
Vital Signs 12/14/23 08:14 Height 5 ft 2 in Weight 92 lb 9.506 oz BMI 16.9 BP 96/48 L Blood Pressure Location Lt brachial Position Sitting Pulse 70 Pulse Source Pulse Oximeter Intake Visit Reasons: 6 mnth f/up Belly Dump Driver Required: Yes Belly Dump Driver Language: Reservations Agent Name: [id number] dell Allergies No Known Allergies [No Known Allergies*] Allergy (Verified 12/14/23 08:19) Medication List - Last Reconciled 12/14/23 by ALYSHA Lamar cetirizine 1 tab PO DAILY PRN cholecalciferol (vitamin D3) 1 tab PO DAILY cyanocobalamin (vitamin B-12) 1 tab DAILY donepezil 5 mg PO BEDTIME famotidine 40 mg PO BEDTIME ferrous sulfate 325 mg PO Q OTHER DAY furosemide 20 mg PO DAILY PRN omeprazole 40 mg orally HPI HPI 6 mn f/up: Details: Crystal is a 78-year-old female with past medical history of metastatic lung CA with carcinoma of liver who Dr. Mario. She was admitted to [facility] [place] with report of abdominal discomfort and noted to have elevation in her troponin. She was treated for NSTEMI. Her echocardiogram showed EF 40-45% with regional wall motion abnormalities. She was transferred to [facility] for cardiac catheterization showing no significant CAD. She was suspected to have takotsubo cardiomyopathy. A follow-up echo showed normalization of EF and wall motion. She was doing well then recently reported increasing shortness of breath and leg edema. She was seen in the ER on 11/25/2023. Her BNP was slightly elevated and chest x-ray showed trace bilateral effusions. She was given Lasix 20 mg p.o. x3 days and referred back to Cardiology in follow-up. On last visit she continued to have some mild leg edema and was continued on Lasix p.r.n.. A repeat limited echocardiogram was ordered to re-evaluate EF and has not been completed prior to this visit. Today she reports that she continues to have some swelling in her left lower extremity. Her right lower extremity has been less swollen right along. She has some shortness of breath with physical activity which is not new. She is denying PND, orthopnea. No chest discomfort at rest or with activity. No palpitations, presyncope, syncope, falls. She is denying lightheadedness with position changes. She is mostly sedentary. She has been taking all her meds as directed. Family member is present. Certified direct service provider used. 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 Hemoptysis Lymphadenopathy Injury of right knee Elevated blood sugar Chronic renal failure Renal cyst Vitamin deficiency, unspecified Allergic rhinitis Depressive disorder Osteoarthritis Obesity HTN (hypertension) Anemia Surgical History History of esophagogastroduodenoscopy (EGD) (~2017) History of section History of liver biopsy (~2021) Family History Father Cancer Mother Cancer Paternal Grandmother Cancer Social History Household Members: None Housing: Apartment Are you a primary youth career specialist to a significant other at home: No Do you presently have visiting nurse or other home services: Yes Alcohol intake: never Patient Tobacco Use Status: Never used Tobacco service: No Current occupational status: retired and disabled Review of Systems Const All systems reviewed & are unremarkable except as noted in HPI and below ENT Denies dizziness Card Denies chest pain, Denies chest pain at rest, Denies chest pain with activity, Denies rapid heart rate, Denies pedal edema, Denies edema, Reports leg edema, Denies lightheadedness, Denies palpitations, Reports dyspnea, Reports dyspnea on exertion and Denies orthopnea Resp Denies cough, Reports dyspnea and Reports dyspnea on exertion GI Denies hematochezia and Denies change in stool character Musc Denies abnormal gait, Denies limited range of motion, Denies muscle cramps, Denies muscle weakness, Denies numbness, Denies radiating pain into limb, Denies stiffness and Denies tingling Neuro Denies abnormal gait, Denies dizziness, Denies numbness and Denies tingling Endo Denies palpitations Physical Exam Vital Signs: Last Vital Signs Pulse 70 12/14/23 08:14 BP 90/52 L 12/14/23 08:14 BMI result Body Mass Index 16.9 Const Other: petite, frail elderly General: cooperative, comfortable and no acute distress Orientation/consciousness: patient oriented x3 Neck Neck: Yes normal visual inspection and Yes no JVD Resp Effort & Inspection: normal respiratory effort Auscultation: clear to auscultation bilaterally, no rales, no rhonchi and no wheezes Cardio Jugular venous distension: no JVD Rate: regular rate Rhythm: regular rhythm Heart sounds: S1 normal heart sound present, S2 normal heart sound present, no murmurs and no rubs Neuro General: patient oriented x3 Extrem Other: trace edema right lower leg, +1 left lower leg. Psych Appearance: grossly normal Mental Status: mental status grossly normal Speech and movement: Normal speech and movement present Assessment & Plan Assessment & Plan (1) Takotsubo cardiomyopathy: Code(s): I51.81 - Takotsubo syndrome Category: Medical Plan: Presented to [facility] [place] with report of abdominal discomfort. Initial testing showed elevation in troponin, peaked at 571. EKG showed sinus rhythm with incomplete right bundle branch block, no acute ST or T-wave abnormalities. An echocardiogram showed EF 40-45%, regional wall motion abnormality inferiorly and anteriorly, grade 2 diastolic dysfunction. She was managed medically then transferred to [facility] for cardiac catheterization which was done on 05/27/2023 showing a right coronary dominant system with no significant coronary artery disease. Based on her elevated troponins and echo findings she was then thought to have takotsubo cardiomyopathy. Her blood pressure and heart rate runs low. She had been on low-dose metoprolol which has since been stopped. A follow-up echocardiogram was done on 07/02/2023 showing EF 55-60% and no regional wall motion abnormalities. She was seen in the emergency room last month with increasing shortness of breath and leg edema. Her BNP was slightly elevated at 164. Troponins were negative. EKG did not show ischemia. Her chest x-ray showed trace bilateral effusions. She was given Lasix 20 mg daily x3 days. On follow-up visit her breathing had improved but she still had some mild leg swelling. Her Lasix was continued p.r.n.. Today she reports ongoing issues with leg edema, mostly on the left. She did have a ultrasound to assess for DVT in that leg August 2023 which was negative. She has no pain to movement or palpation. On exam she does not appear fluid overloaded elsewhere. This is likely dependent edema. She does have a repeat limited echo pending to reassess EF, due to the symptoms of leg edema prior shortness of breath. Her blood pressure is low today, asymptomatic. She is not on any antihypertensives. Instructed on increasing p.o. fluid intake as she is drinking only minimal amounts. She can continue to use p.r.n. Lasix if warranted for leg edema but no more than 3 times weekly. Compression stockings given from our office stock and instructed on their use. Leg elevation when sitting and low-salt diet reviewed. Plan to call her with echo results. Cardiology follow-up in 3 months, sooner if needed. (2) Non-ST elevation [place] (NSTEMI): Code(s): I21.4 - Non-ST elevation (NSTEMI) myocardial infarction Category: Medical Plan: As above (3) S/P cardiac catheterization: Comment: 05/27/2023, right-dominant system, RCA no significant disease, left main minimal ostial disease, left circumflex and LAD no significant disease Code(s): Z98.890 - Other specified postprocedural states Category: Surgical Plan: As above (4) Carcinoma of liver: Onset Date: ~2021 Code(s): C22.0 - Liver cell carcinoma Category: Medical Plan: Follows with Dr. Mario. (5) Shortness of breath: Code(s): R06.02 - Shortness of breath Category: Medical Plan: As above (6) Edema: Code(s): R60.9 - Edema, unspecified Category: Medical Plan: As above. Plan Time spent on chart review, documentation, interview assessment Coding Level of Care Code Est Pt Level 3 (51022) Diagnoses Takotsubo cardiomyopathy I51.81 Non-ST elevation [place] (NSTEMI) I21.4 S/P cardiac catheterization Z98.890 Carcinoma of liver C22.0 Shortness of breath R06.02 Edema R60.9 Time Spent (min) 24
== END 2023-12-14 09:00 | disposition home or self-care (01) ==
PROVIDERS: PCP Internal Medicine; Visit Provider Nurse Practitioner Family
DX: I51.81 Takotsubo syndrome (principal); I21.4 Non-ST elevation (NSTEMI) myocardial infarction; Z98.890 Other specified postprocedural states; C22.0 Liver cell carcinoma; R06.02 Shortness of breath; R60.9 Edema, unspecified
CPT/HCPCS: 99213

== ENCOUNTER → 2023-12-14 07:53 | Outpatient (BNVA) | payer OTHER, SELFPAY | PROVIDERS: PCP Internal Medicine; Visit Provider Nurse Practitioner Family | DX: I51.81 Takotsubo syndrome (principal); I25.2 Old myocardial infarction; C22.0 Liver cell carcinoma; R06.02 Shortness of breath; R60.9 Edema, unspecified; Z98.890 Other specified postprocedural states | CPT/HCPCS: 99212 ==

== ENCOUNTER 2023-12-20 08:19 | Outpatient (REF) | payer OTHER, SELFPAY ==
--- NOTE | ~2023-12-20 | CT_ITS ---
EXAMINATION: CT CHEST, ABDOMEN AND PELVIS WITH CONTRAST CLINICAL INFORMATION: History of liver cancer. COMPARISON: 05/25/2023 and 07/07/2021 TECHNIQUE: Multidetector volumetric imaging was performed of the chest, abdomen and pelvis following administration of 85 mL Omnipaque 350 intravenous contrast. Oral contrast was administered. Sagittal and coronal reformatted images were obtained on the technologist's workstation. This CT examination was performed using dose optimization techniques as appropriate, variously including the following: *Automated exposure control *Adjustment of mA and/or kV according to patient size (this includes techniques or standardized protocols for targeted exams where dose is matched to indication/reason for exam; i.e. extremities or head) *Use of iterative reconstruction technique DLP: 239 mGy-cm FINDINGS: CHEST: LUNGS: Thick-walled cavitary lesion in the right lower lobe measures 3.7 x 2.7 cm on image 322 of series 7. Wall thickening and overall size of the lesion has increased relative to the comparison study of 05/25/2023. There are increasing/worsening parenchymal changes including numerous tree-in-bud micronodules and nodular consolidation. 5 mm nodules in the right lower lobe on images 425 of series 7 and 430 of series 7 are unchanged. Central airways are patent. PLEURA: No pleural effusion. MEDIASTINUM: Imaged thyroid gland is heterogeneous. No bulky axillary, hilar or mediastinal lymphadenopathy. Great vessels are normal in caliber. Heart is enlarged. Trace pericardial effusion. CORONARY ARTERY CALCIFICATION: Moderate CHEST WALL: No acute abnormality. ABDOMEN AND PELVIS: ABDOMINAL AND PELVIC WALL: Unremarkable. LIVER AND BILIARY TREE: Diffusely heterogeneous enhancement at the hepatic parenchyma limits evaluation and detection of underlying lesions. The liver is enlarged. There is a thick-walled lesion with hyperattenuating foci measuring 2.7 x 4.6 x 4.6 cm centered at the marlin hepatis superior to the gallbladder. No biliary ductal dilatation. GALLBLADDER: Gallstones with gallbladder wall thickening. PANCREAS: Atrophic and poorly visualized. SPLEEN: Not enlarged. ADRENAL GLANDS: Left adrenal nodule measuring 1.2 x 1.2 cm. KIDNEYS AND URETERS: Benign-appearing right renal cysts, no imaging follow-up recommended. GASTROINTESTINAL TRACT: Nonspecific small and large bowel wall thickening. This may be related to surrounding ascites. No small bowel obstruction. Colonic diverticulosis. Appendix is within normal limits. VASCULAR: Normal caliber abdominal aorta. LYMPH NODES: No bulky lymphadenopathy. FREE FLUID: Small abdominopelvic ascites. BLADDER: Diffuse wall thickening despite underdistention. PELVIC VISCERA: Pelvic venous congestion. OSSEOUS STRUCTURES: No destructive bone lesions. CT/CT abdomen pelvis w IV con IMPRESSION: Thick-walled cavitary lesion in the right lower lobe measures 3.7 x 2.7 cm. Wall thickening and overall size of the lesion has increased relative to the comparison study of 05/25/2023. There are increasing/worsening parenchymal changes including numerous tree-in-bud micronodules and nodular consolidation. Diffusely heterogeneous enhancement of the hepatic parenchyma with a thick walled lesion containing hyperattenuating foci measuring 2.7 x 4.6 x 4.6 cm centered at the marlin hepatis superior to the gallbladder. This lesion is incompletely characterized. MRI abdomen is recommended for further evaluation. Left adrenal nodule measures 1.2 x 1.2 cm. Recommend 1-year followup adrenal protocol CT. Also, if clinically indicated, consider concurrent laboratory evaluation for possible pheochromocytoma.
[2023-12-20] MEDS: iohexoL 350 MG/ML 100 ML INFUS..BTL 85 ML IV (09:24)
== END 2023-12-20 08:20 | disposition home or self-care (01) ==
LOC: HO.CT 08:19
PROVIDERS: Visit Provider Internal Medicine
DX: C34.90 Malignant neoplasm of unspecified part of unspecified bronchus or lung (principal)
CPT/HCPCS: 71250; 74177; Q9967

== ENCOUNTER → 2023-12-24 13:42 | Outpatient (REF) | payer OTHER, SELFPAY ==
--- NOTE | 2023-12-24 14:10 | CA_ITS ---
Transthoracic Echocardiogram Patient (Last, First, Middle): Crystal Avila, Gender: Female Date of : 1945 Age: 78 Procedure Date: 12/24/2023 Procedure Type: Transthoracic Echocardiogram Location: OP Height: 154.94 cm Weight: 44.45 kg BSA: 1.40 m2 Heart Rate: bpm BP: 106 / 60 mmHg Ophthalmic Medical Assistant: TO Referring MD: Kay Denise ANNEALING FURNACE TENDERTennille Symptoms: R06.02 - Shortness of breath Study Quality: Adequate Conclusions: - The left ventricular systolic function is low normal. The visually estimated ejection fraction is between 50-55%. - The inferolateral wall is hypokinetic. Findings Left Ventricle Normal left ventricular cavity size. The left ventricular systolic function is low normal. The visually estimated ejection fraction is between 50-55%. Wall Motion Rest Echo Findings The inferolateral wall is hypokinetic. Venous The inferior vena cava is normal in size and collapses greater than 50% with inspiration. Prior Study Comparison Changes noted compared to prior study dated: 07/02/2023. see comment on wall motion. Measurements 2D Linear Measurements IVSd: 0.85 0.6-0.9/0.6-1.0 cm LVIDd: 3.71 3.9-5.3/4.2-5.9 cm LVIDd Index: 2.65 2.4-3.2/2.2-3.1 cm/m2 LVIDs: 2.55 2.0-3.6 cm LVPWd: 0.71 0.7-1.1 cm LV Mass: 98.94 67-162/88-224 g LV Mass Index: 70.67 43-95/49-115 g/m2 LVOT Diam: 2.00 3.0+(-)1.3 cm 2D Systolic Function EF 4C: 57.30 >55% EF 2C: 56.20 >55% EF BiP: 57.30 >55% LVOT LVOT Pk Edgar: 0.60 LVOT Mn Edgar: 0.38 LVOT VTI: 0.14 LVOT Pk Grad: 1.00 LVOT Mn Grad: 1.00 LVOT Diam: 2.00 LVOT Area: 3.14 Tricuspid Valve RA Press: 3.00 Updated in Other Vendor System with Status of Final Ga Bowman MD electronically signed on 12/25/2023 3:50:30 PM with status of Final
== END ==
LOC: HO.CARD 13:42
PROVIDERS: PCP Internal Medicine; Visit Provider Nurse Practitioner Family
DX: R06.02 Shortness of breath (principal); I51.81 Takotsubo syndrome; R60.9 Edema, unspecified
CPT/HCPCS: 93308

== ENCOUNTER → 2023-12-24 14:10 | Outpatient (BNV) | payer OTHER, SELFPAY | PROVIDERS: PCP Internal Medicine; Visit Provider Internal Medicine | DX: R06.02 Shortness of breath (principal) | CPT/HCPCS: 93308 ==

== ENCOUNTER 2024-01-31 08:37 | Day surgery (SDC) | payer OTHER, SELFPAY ==
[2024-01-31] VITALS (9 sets, daily range): BP systolic 85–109; BP diastolic 46–55; PULSE 46–54; RESP 12–16; TEMP 36.3–36.4; O2SAT 94–98; BMI 16.6
--- NOTE | ~2024-01-31 | US_ITS ---
Non-small cell lung cancer. New liver mass PROCEDURES: 1. Limited preprocedure ultrasound of the abdomen. Permanent images saved in PACS. 2. Ultrasound-guided biopsy of the right lobe liver mass. 3. Limited preprocedure ultrasound of the abdomen. Permanent images saved in PACS. CLINICIANS: Jim Dale PA-C MEDICATIONS: -Versed 0.5 mg, Fentanyl 25 mcg, and lidocaine 1% 10 mL SQ -Antibiotics: None -For additional details, please see nursing flowsheet. COMPLICATIONS: None ESTIMATED BLOOD LOSS: < 5 ml CONTRAST: None SPECIMENS: 4 x 20 g cores were sent to pathology MODERATE SEDATION TIME: 20 min PROCEDURE NOTE: The procedure, risks, benefits, and alternatives were carefully explained to the patient and written informed consent was obtained. The patient was placed supine on the exam table. A timeout was performed. A limited ultrasound of the abdomen was performed to localize the right lobe liver lesion and choose appropriate needle entry and trajectory. The patient was prepped and draped in usual sterile fashion. The skin and deeper soft tissues were anesthetized with lidocaine. Under ultrasound guidance, a 19 gague trocar needle was advanced to the liver lesion. A 20 gauge biopsy device was inserted through the trocar needle advanced into the liver lesion. A total of 4, 20 gauge cores were performed. The specimens were placed in formalin. A total of 2 Gelfoam torpedoes were then administered through the trocar needle into the biopsy tract and at the level of the liver capsule. The needle was removed. A limited post procedure ultrasound was then performed. Images were saved in PACS. A dry dressing was applied and secured with Tegaderm. There were no immediate complications. The patient was stable after the procedure and was transferred to the post anesthesia care unit. The procedure was done under moderate sedation with a dedicated nurse for monitoring of vital signs. US/US biopsy liver Impression: Ultrasound-guided biopsy of the right lobe liver mass. This procedure was performed by Jim Dale PA-C and supervised by Dr. Smith. Electronically signed by: Joaquim Smith MD 02/03/2024 03:19 PM EDT
[2024-01-31 09:28] LABS: MANUAL DIFF FLAG NO
[2024-01-31 09:33] LABS: Basophils Percent Auto 0.3 % (0-2); Eosinophils Absolute Auto 0.1 X10*3/uL (0.0-0.4); Eosinophils Percent Auto 1.5 % (0-4); Hematocrit 31.1 % (37.0-47.0); Hemoglobin 10.2 g/dl (12.0-16.0); Imm Gran Abs Auto 0.01 X10*3/uL (0.00-0.03); Imm Gran Pct Auto 0.3 % (0.0-0.4); Lymphocytes Absolute Auto 0.7 X10*3/uL (1.2-4.9); Lymphocytes Percent Auto 18.2 % (20-40); Mean Corpuscular HGB Conc 32.8 g/dl (31.0-35.0); Mean Corpuscular Volume 94.5 fL (80.0-98.0); Mean Platelet Volume 9.4 fL (9.4-12.3); Monocytes Absolute Auto 0.3 X10*3/uL (0.1-1.2); Monocytes Percent Auto 8.3 % (2-11); Neutrophils Absolute Auto 2.8 x10*3/uL (2.0-8.3); Neutrophils Percent Auto 71.4 % (45-73); Platelet Count 207 X10*3/uL (160-400); Red Blood Count 3.29 X10*6/uL (4.20-5.50); Red Cell Distribution Width 12.8 % (11.0-16.0)
[2024-01-31 09:38] LABS: Prothrombin Time 11.5 SEC (10.9-12.4)
[2024-01-31 09:41] LABS: Partial Thromboplastin Time 31.2 SEC (26.0-36.8)
--- NOTE | 2024-01-31 10:34 | MHC.SHP ---
Pre-Procedural Eval Section A - 24 Hr Update-Section A only Date of Service: 01/31/24 Section B - Complete if H&P > 30 days Chief Complaint: malignant neoplasm of unsp bronchus or lung Details of Present Illness: 78 y/o female with metastatic lung cancer and recurrent liver mass. Relevant Family History (Specify if Yes): No Relevant Social History: None Present Medications: see Short Stay Collaborative assessment Medical History: Significant History History of Previous Operations: Relevant previous surgery/procedure and date(s) Allergies: Allergies Allergy/AdvReac Type Severity Reaction Status Date / Time No Known Allergies Allergy Verified 01/20/24 14:26 [No Known Allergies*] Review of Systems Sugical H&P ROS: Negative: Cardiovascular, Respiratory and Gastrointestinal and Yes, Specify: Constitution (fatigue) Exam Surgical H&P Exam: Normal: Lungs, Normal: Abdomen (soft, nt, nd) and Normal: Skin and Significant Findings: Heart (bradycardic, regular) Plan 78 y/o female with metastatic lung cancer and new/recurrent right lobe liver mass -Liver mass biopsy Time Spent With Patient Time: Total time managing care of this patient today ____ minutes.
[2024-01-31] MEDS: Lidocaine HCl 1 % MPF 5 ML VIAL 10 ML SUBCUT (11:45)
== END 2024-01-31 14:02 | disposition home or self-care (01) ==
PROVIDERS: Physician Assistant Surgical; Radiology Vascular & Interventional Radiology; PCP Internal Medicine; Visit Provider Internal Medicine
DX: C78.7 Secondary malignant neoplasm of liver and intrahepatic bile duct (principal); J98.4 Other disorders of lung; D64.9 Anemia, unspecified; R59.1 Generalized enlarged lymph nodes; I12.9 Hypertensive chronic kidney disease with stage 1 through stage 4 chronic kidney disease, or unspecified chronic kidney disease; N18.9 Chronic kidney disease, unspecified; R73.9 Hyperglycemia, unspecified
CPT/HCPCS: 36415; 47000; 76942; 85025; 85610; 85730; 86850; 86900; 86901; 88307; 88312; 88313; 99152; 99153; J2250; J3010

== ENCOUNTER → 2024-01-31 10:38 | Outpatient (BNV) | payer OTHER, SELFPAY | PROVIDERS: PCP Internal Medicine; Visit Provider Student in an Organized Health Care Education/Training Program | DX: R16.0 Hepatomegaly, not elsewhere classified (principal) | CPT/HCPCS: 47000; 76942 ==

== ENCOUNTER 2024-07-12 17:33 | Inpatient (IN) | payer OTHER, SELFPAY ==
--- NOTE | ~2024-07-12 | XR_ITS ---
CLINICAL HISTORY: trauma,PAIN Chest Radiographs, AP Comparison: 01/27/23 Findings: No cardiomegaly. Normal mediastinal contours. No pneumothorax. Opacity in the left lower lung zone. Nodular opacities most prominent in the right mid lung zone. No pleural effusion. Normal upper abdomen. No acute fracture. Impression: Opacity in the left lower lung zone likely indicates pneumonia. Correlate clinically for signs/symptoms of infection and follow up to resolution. Nodule opacities which are most prominent in the right mid lung zone could be infectious/inflammatory. Attention on follow up is recommended. This document has been electronically signed by: Lizzy Montalvo MD on 07/12/2024 19:21:43
--- NOTE | ~2024-07-12 | CT_ITS ---
CLINICAL HISTORY: trauma CT head without contrast Comparison: None Findings: No intracranial hemorrhage, mass effect or midline shift. There is encephalomalacia in the right occipital lobe. Moderate cerebral atrophy. Low attenuation in the periventricular white matter consistent with chronic small-vessel ischemic gliosis. The visualized paranasal sinuses and mastoid air cells are normal. The orbits are unremarkable. There is no acute fracture. IMPRESSION: 1. No acute intracranial findings. This document has been electronically signed by: Mason Rodriguez MD on 07/12/2024 19:44:19
--- NOTE | ~2024-07-12 | CT_ITS ---
CLINICAL HISTORY: trauma CT cervical spine without contrast Comparison: None Findings: Vertebral alignment is within normal limits. Multilevel degenerative change of the cervical spine. No acute fractures or dislocations. Visualized intracranial contents are unremarkable. No cervical fluid collections or masses. No consolidation or effusion at the lung apices. IMPRESSION: No acute findings. This document has been electronically signed by: Mason Rodriguez MD on 07/12/2024 19:52:08
--- NOTE | ~2024-07-12 | FL_ITS ---
EXAMINATION: FL GUIDANCE ONLY HISTORY: RIGHT IM NAIL COMPARISON: Comparison is made with the prior examination of the right hip dated 07/12/2024. TECHNIQUE: Fluoroscopy time: 0.7 minutes. Cumulative Dose: 9.80 mGy. DAP: 0.164 mGym2 Images: 4. FINDINGS: Images demonstrate internal fixation of the previously noted comminuted intertrochanteric fracture with a compression screw and intramedullary ruel. FL/FL guidance in OR IMPRESSION: Fluoroscopy during procedure. Please see procedure report for additional information. Electronically signed by: Dionicio Goodman MD 07/14/2024 08:36 AM SARY
--- NOTE | ~2024-07-12 | XR_ITS ---
CLINICAL HISTORY: trauma,pain Radiographs of the pelvis and right hip, 3 views Comparison: None Findings: There is a fracture of the right proximal femur involving the lesser trochanter and subtrochanteric region. Displacement measures up to 2.5 cm. Decreased femoral neck/shaft angle, measuring 100 degrees. No dislocation. Mild degenerative change. Bone mineralization is decreased. Soft tissue swelling. Vascular calcifications. Impression: Fracture of the right proximal femur. This document has been electronically signed by: Lizzy Montalvo MD on 07/12/2024 19:24:41
[2024-07-12 17:40] VITALS: BP 110/70; PULSE 78; O2SAT 98
[2024-07-12 17:41] VITALS: BP 162/57; PULSE 69; RESP 18; TEMP 36.6; O2SAT 97; BMI 19.5
[2024-07-12] MEDS: ondansetron HCL 4 MG/2 ML VIAL IVPUSH (18:20)
[2024-07-12] MEDS: fentaNYL citrate/PF 100 MCG/2 ML VIAL 50 MCG IVPUSH (18:20)
--- NOTE | 2024-07-12 18:21 | ECG_ITS ---
Test Reason : FALL Blood Pressure : */* mmHG Vent. Rate : 71 BPM Atrial Rate : 71 BPM P-R Int : 122 ms QRS Dur : 96 ms QT Int : 332 ms P-R-T Axes : 65 -9 -4 degrees QTcB Int : 360 ms Normal sinus rhythm Incomplete right bundle branch block Nonspecific T wave abnormality Abnormal ECG When compared with ECG of 25-Nov-2023 14:43, Nonspecific T wave abnormality, worse in Inferior leads Nonspecific T wave abnormality now evident in Lateral leads QT has shortened Referred By: Jim Julio Electronically Signed By: KAYE ROSS MD
--- NOTE | 2024-07-12 18:24 | ED_ITS ---
HPI - General Adult General Chief complaint: Extremity Injury, Lower Stated complaint: fall, hip pain Time Seen by Provider: 07/12/24 17:36 Source: patient and RN notes reviewed Mode of arrival: EMS Limitations: no limitations History of Present Illness ED Provider: Nori TESFAYE narrative: 79-year-old female presents for evaluation after a fall. She was a medical history significant for coronary artery disease, hypertension, anemia Patient reports that she lost her balance while walking to the Fridge to make food. She injured her right hip and complains of 8/10 stabbing hip pain. She denies hitting her head or losing consciousness. She is not anticoagulated. She denies any headache, neck pain, chest pain, abdominal pain. She walks with a cane at baseline It was unclear how long the patient was on the ground. EMS reports that she was down for 15-20 minutes. The patient believes that she fell prior to noon which was about 6 hours prior to arrival Related Data Home Medications ?Medication ?Instructions ?Recorded ?Confirmed cholecalciferol (vitamin D3) 25 1 tab PO DAILY 07/05/21 01/20/24 mcg (1,000 unit) tablet cyanocobalamin (vitamin B-12) 500 1 tab DAILY 07/05/21 01/20/24 mcg tablet cetirizine 10 mg tablet 1 tab PO DAILY PRN Allergy Symptoms 07/23/21 01/20/24 donepezil 5 mg tablet 5 mg PO BEDTIME 02/12/22 01/20/24 ferrous sulfate 325 mg (65 mg 325 mg PO Q OTHER DAY 05/25/23 01/20/24 iron) tablet Previous Rx's ?Medication ?Instructions ?Recorded omeprazole 40 mg capsule,delayed See Rx Instructions .Route 08/06/23 release .COMPLEX #30 caps furosemide 20 mg tablet 20 mg PO DAILY PRN swelling, 12/29/23 shortness of breath #30 tabs famotidine 40 mg tablet 40 mg PO BEDTIME #30 tabs 03/13/24 Allergies Allergy/AdvReac Type Severity Reaction Status Date / Time No Known Allergies Allergy Verified 07/12/24 17:50 [No Known Allergies*] Review of Systems 2 Constitutional: Constitutional: Denies body ache(s), Denies chills, Denies frequent falls and Denies headache(s) Eyes: Eyes: Denies blurry vision ENT: Denies vertigo, Denies dizziness and Denies headache(s) Cardiovascular: Cardiovascular: Denies chest pain and Denies dyspnea Respiratory: Respiratory: Denies cough and Denies dyspnea Gastrointestinal: Gastrointestinal: Denies abdominal pain Musculoskeletal: Musculoskeletal: Reports arthralgias, Reports joint swelling and Reports limited range of motion Neurologic: Denies vertigo, Denies dizziness, Denies frequent falls and Denies headache(s) [facility] Past Medical History Medical History Sore throat 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 Hemoptysis Lymphadenopathy Injury of right knee Elevated blood sugar Chronic renal failure Renal cyst Vitamin deficiency, unspecified Allergic rhinitis Depressive disorder Osteoarthritis Obesity HTN (hypertension) Anemia Surgical History History of esophagogastroduodenoscopy (EGD) (~2017) History of section History of liver biopsy (~2021) Family History Family History Father Cancer Mother Cancer Paternal Grandmother Cancer Social History Social History Household Members: None Housing: Apartment Are you a primary certified social workers in health care to a significant other at home: No Do you presently have visiting nurse or other home services: Yes Alcohol intake: never Patient Tobacco Use Status: Never used Tobacco Smoked in Last 30 Days: No Use of substances other than those prescribed or required for medical reasons: No Advance Directives: No Advance Directives Information Provided: No Do you have a plan to hurt others: No Plan service: No Current occupational status: retired and disabled Physical Exam ED Vital Signs: Vital Signs - 24 hr 07/12/24 17:41 07/12/24 19:23 07/12/24 22:38 Temperature 98 F 98.5 F 98.6 F Pulse Rate 69 71 73 Respiratory Rate 18 15 15 Blood Pressure 162/57 H 155/80 H 136/66 Pulse Oximetry 97 94 93 Oxygen Delivery Method Room Air Room Air Room Air BMI result Body Mass Index 19.5 Const General: healthy appearing, comfortable, no acute distress, alert and awake Nutritional Appearance: well nourished Orientation/consciousness: patient oriented x3 HENMT Head: Yes normocephalic and Yes atraumatic Eyes Eyelids: Yes eyelids normal Conjunctivae: conjunctivae normal Sclerae: sclerae normal Corneas: corneas normal Pupils: Equal, round and reactive pupils present EOM: EOMs intact bilaterally Neck Neck: Yes full ROM Resp Effort & Inspection: normal respiratory effort, able to speak in complete sentences and not labored GI Inspection: No distended Palpation (GI): Soft to palpation, not firm, nontender, no guarding and not rigid Skin General skin exam: elasticity normal Neuro General: patient oriented x3 Cranial nerves: Yes CN's II-XII intact bilaterally, Yes Equal, round and reactive pupils present and Yes Bilaterally intact EOM present Cognition (Neuro): normal cognition Extrem Other: Right lower extremity is shortened and externally rotated. PT pulses are 2+ and equal Medications Administered Discontinued Medications Generic Name Dose Route Start Last Admin Trade Name Freq PRN Reason Stop Dose Admin Fentanyl 50 mcg 07/12/24 18:13 07/12/24 18:20 Fentanyl Citrate/Pf 100 Mcg/2 Ml Vial IVPUSH 07/12/24 18:14 50 mcg ONCE ONE Administration Protocol Hydromorphone HCl 1 mg 07/12/24 19:15 07/12/24 19:25 Hydromorphone Hcl 1 Mg/Ml Syringe IVPUSH 07/12/24 19:16 1 mg ONCE ONE Administration Protocol Ondansetron HCl 4 mg 07/12/24 18:13 07/12/24 18:20 Ondansetron Hcl 4 Mg/2 Ml Vial IVPUSH 07/12/24 18:14 4 mg ONCE ONE Administration Medical Decision Making Medical Decision Making MDM Narrative: 79-year-old female with past medical history as documented above presents for evaluation of right hip pain after a fall. She describes a nonsyncopal fall. She had no prodrome and denies any chest pain or shortness of breath. She denies any head strike or loss of consciousness. Clinically she likely has a fractured right hip as the right lower extremity is shortened and externally rotated. We will treat her pain with fentanyl 50 mcg IV as well as Zofran. We will get x-ray imaging of the right hip and pelvis, a one view of the chest, CT scan of the brain and cervical spine due to trauma. Will check basic labs and an EKG. Differential Diagnosis Differential Diagnoses: The differential diagnosis associated with the presentation includes Right hip fracture Pelvic fracture Hip dislocation Contusion Femur fracture Nonsyncopal fall Admission/Observation Consideration of admission/observation: Escalation of care including admission/observation considered Consult Healthcare Provider Management of the patient was discussed with: Hospitalist and Printing Estimator (latrell chatterjee) Lab Data MDM Lab Attestation statement: I reviewed the patient's lab results. Patient has a mild leukocytosis which is likely reactive to her trauma. She has a chronic anemia with a hemoglobin of 8.6 and hematocrit 26.6 about 2 points below her baseline. This was repeated in her hemoglobin hematocrit improved to 9.4 and 29.4 respectively. No significant chemistry abnormalities warranting intervention 07/12/24 22:51 07/12/24 19:14 Labs: Lab Results 07/12/24 07/12/24 07/12/24 Range/Units 19:13 19:14 22:51 WBC 11.8 H (4.8-10.8) X10*3/uL RBC 2.89 L D (4.20-5.50) X10*6/uL Hgb 8.6 L D 9.4 L (12.0-16.0) g/dl Hct 26.6 L D 29.4 L (37.0-47.0) % MCV 92.0 (80.0-98.0) fL MCH 29.8 (27.0-33.0) pg MCHC 32.3 (31.0-35.0) g/dl RDW 15.7 (11.0-16.0) % Plt Count 286 D (160-400) X10*3/uL MPV 9.2 L (9.4-12.3) fL Immature Gran % (Auto) 0.5 H (0.0-0.4) % Neut % (Auto) 91.1 H (45-73) % Lymph % (Auto) 4.1 L (20-40) % [place] % (Auto) 3.6 (2-11) % Eos % (Auto) 0.5 (0-4) % Baso % (Auto) 0.2 (0-2) % Lymph # (Auto) 0.5 L (1.2-4.9) X10*3/uL [place] # (Auto) 0.4 (0.1-1.2) X10*3/uL Eos # (Auto) 0.1 (0.0-0.4) X10*3/uL Baso # (Auto) 0.0 (0.0-0.2) X10*3/uL Abs Immat Gran (auto) 0.06 H (0.00-0.03) X10*3/uL Absolute Neuts (auto) 10.8 H (2.0-8.3) x10*3/uL Absolute Nucleated RBC 0.000 (0.0-0.012) X10*3/uL Nucleated RBC % (auto) 0.0 (0.0-0.2) /100WBC Smear Tech's Comments VERIFIED PT 11.7 (10.9-12.4) SEC INR 1.0 (0.9-1.1) Sodium 137 (135-145) mmol/L Potassium 3.8 (3.3-5.1) mmol/L Chloride 103 (96-108) mmol/L Carbon Dioxide 25 (22-29) mmol/L Anion Gap 13 (12-20) BUN 28 H (9-16) mg/dL Creatinine 0.84 (0.5-1.4) mg/dL Estim Creat Clear Calc 40.1 Estimated GFR > 60 Random Glucose 161 H (60-115) mg/dL Calcium 9.5 (8.4-10.2) mg/dL Total Creatine Kinase 69 (26-140) U/L Blood Type O Positive Antibody Screen NEGATIVE Independent Interpretation I performed an independent interpretation of an: Plain X-Ray (Displaced fracture of the proximal femur) Radiology Impression Discussion of test interpretation with radiology: I have reviewed the radiologist's reading. Radiologist Impression: Findings: There is a fracture of the right proximal femur involving the lesser trochanter and subtrochanteric region. Displacement measures up to 2.5 cm. Decreased femoral neck/shaft angle, measuring 100 degrees. No dislocation. Mild degenerative change. Bone mineralization is decreased. Soft tissue swelling. Vascular calcifications. Impression: Fracture of the right proximal femur. This document has been electronically signed by: Lizzy Montalvo MD on 07/12/2024 19:24:41 Discharge Plan Discharge Clinical Impression: Closed fracture of right hip Patient Disposition: Admitted As Inpatient Prescriptions: No Action omeprazole 40 mg Capsule,Delayed Release(Dr/Ec) See Rx Instructions .ROUTE .COMPLEX Qty: 30 3RF Rx Instructions: 40 mg orally furosemide 20 mg tablet 20 mg PO DAILY PRN (Reason: swelling, shortness of breath) Qty: 30 0RF famotidine 40 mg tablet 40 mg PO BEDTIME Qty: 30 6RF cyanocobalamin (vitamin B-12) 500 mcg tablet 1 tab DAILY cholecalciferol (vitamin D3) 25 mcg (1,000 unit) tablet 1 tab PO DAILY cetirizine 10 mg tablet 1 tab PO DAILY PRN (Reason: Allergy Symptoms) ferrous sulfate 325 mg (65 mg iron) tablet 325 mg PO Q OTHER DAY donepezil 5 mg tablet 5 mg PO BEDTIME Print Language: Macedonian
[2024-07-12 19:23] VITALS: BP 155/80; PULSE 71; RESP 15; TEMP 36.9; O2SAT 94
[2024-07-12 19:23] LABS: Basophils Percent Auto 0.2 % (0-2); Eosinophils Absolute Auto 0.1 X10*3/uL (0.0-0.4); Eosinophils Percent Auto 0.5 % (0-4); Hematocrit 26.6 % (37.0-47.0); Hemoglobin 8.6 g/dl (12.0-16.0); Imm Gran Abs Auto 0.06 X10*3/uL (0.00-0.03); Imm Gran Pct Auto 0.5 % (0.0-0.4); Lymphocytes Absolute Auto 0.5 X10*3/uL (1.2-4.9); Lymphocytes Percent Auto 4.1 % (20-40); MANUAL DIFF FLAG SCAN; Mean Corpuscular HGB Conc 32.3 g/dl (31.0-35.0); Mean Corpuscular Hemoglobin 29.8 pg (27.0-33.0); Mean Platelet Volume 9.2 fL (9.4-12.3); Monocytes Absolute Auto 0.4 X10*3/uL (0.1-1.2); Monocytes Percent Auto 3.6 % (2-11); Neutrophils Absolute Auto 10.8 x10*3/uL (2.0-8.3); Neutrophils Percent Auto 91.1 % (45-73); Platelet Count 286 X10*3/uL (160-400); Red Blood Count 2.89 X10*6/uL (4.20-5.50); Red Cell Distribution Width 15.7 % (11.0-16.0); SCAN SMEAR FLAG 1; White Blood Count 11.8 X10*3/uL (4.8-10.8)
[2024-07-12] MEDS: HYDROmorphone HCl 1 MG/ML SYRINGE IVPUSH (19:25)
[2024-07-12 19:30] LABS: Prothrombin Time 11.7 SEC (10.9-12.4)
[2024-07-12 19:36] LABS: Anion Gap 13 (12-20); Blood Urea Nitrogen 28 mg/dL (9-16); Calcium 9.5 mg/dL (8.4-10.2); Carbon Dioxide 25 mmol/L (22-29); Chloride 103 mmol/L (96-108); Creatinine Clr Calc Pharmacy 40.1; Estimated Glomerular Filt Rate > 60; Glucose Random 161 mg/dL (60-115); Potassium 3.8 mmol/L (3.3-5.1); Sodium 137 mmol/L (135-145)
[2024-07-12 19:44] LABS: SLIDE REVIEW VERIFIED
[2024-07-12 22:38] VITALS: BP 136/66; PULSE 73; RESP 15; TEMP 37; O2SAT 93
[2024-07-12 23:05] LABS: Hematocrit 29.4 % (37.0-47.0); Hemoglobin 9.4 g/dl (12.0-16.0)
--- NOTE | 2024-07-12 23:27 | PC.NURSE ---
Patient o2 saturation dipped to 80% with good pleth. Patient sleeping. Applied 2L MD LENNY notified.
--- NOTE | 2024-07-12 23:57 | ECG_ITS ---
Test Reason : FALL Blood Pressure : */* mmHG Vent. Rate : 72 BPM Atrial Rate : 72 BPM P-R Int : 122 ms QRS Dur : 90 ms QT Int : 402 ms P-R-T Axes : 49 -11 -1 degrees QTcB Int : 440 ms Normal sinus rhythm Nonspecific ST abnormality Abnormal ECG When compared with ECG of 12-Jul-2024 19:03, QT has lengthened Referred By: Tico Barrett Electronically Signed By: KAYE ROSS MD
--- NOTE | 2024-07-12 23:58 | P.HPHOSP_ITS ---
History of Present Illness Date of Service: 07/12/24 Attending physician on admission: Tico Barrett Chief Complaint: Fall earlier today with resultant right hip pain Patient is a 78-year-old female with medical history significant for coronary artery disease, hypertension, depression, chronic renal failure, non-tuberculous mycobacterial lung disease and anemia who presents to the emergency room from her residence complaining of right hip pain following a fall. She reports that she lost her balance while walking to the refrigerator and fell landing on her right hip. She developed severe pain and was unable to ambulate thereafter. She denies any head strike or associated chest pain, dizziness or loss of consciousness. It is unclear what time she fell or how long she was down. A plain x-ray of the right hip done when she arrived to the emergency room showed a slightly displaced fracture of the right proximal femur involving the lesser trochanter and subtrochanteric region. Blood work done revealed anemia with a hemoglobin of 8.600 hematocrit 26.6, mild leukocytosis 11.8 K, mild renal insufficiency with a BUN of 20 and a creatinine of 0.84 and a mildly elevated blood sugar at 161. Assessment of closed right proximal femoral fracture was made and admission requested. The case was discussed with the orthopedic surgeon high school special education teacher who recommended making the patient NPO in anticipation for surgery this morning. Of note patient she has no known cardiopulmonary issues. She ambulates using a cane and has good METs. Review of Systems 2 Review of Systems: Yes all other systems are reviewed and are negative [facility] Medical History (Updated 07/13/24 @ 05:43 by Tico Barrett MD) CKD (chronic kidney disease) Sore throat 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 Hemoptysis Lymphadenopathy Injury of right knee Elevated blood sugar Chronic renal failure Renal cyst Vitamin deficiency, unspecified Allergic rhinitis Depressive disorder Osteoarthritis Obesity HTN (hypertension) Anemia Family History Father Cancer Mother Cancer Paternal Grandmother Cancer Surgical History History of esophagogastroduodenoscopy (EGD) (~2017) History of section History of liver biopsy (~2021) Social History Household Members: None Housing: Apartment Are you a primary patient care assistant to a significant other at home: No Do you presently have visiting nurse or other home services: Yes Alcohol intake: never Patient Tobacco Use Status: Never used Tobacco Smoked in Last 30 Days: No Use of substances other than those prescribed or required for medical reasons: No Advance Directives: No Advance Directives Information Provided: No Do you have a plan to hurt others: No Plan service: No Current occupational status: retired and disabled Meds Allergies Allergy/AdvReac Type Severity Reaction Status Date / Time No Known Allergies Allergy Verified 07/12/24 17:50 [No Known Allergies*] Home Medications ?Medication ?Instructions ?Recorded ?Confirmed ?Last Taken ?Type cholecalciferol (vitamin D3) 25 1 tab PO DAILY 07/05/21 01/20/24 05/24/23 History mcg (1,000 unit) tablet cyanocobalamin (vitamin B-12) 500 1 tab DAILY 07/05/21 01/20/24 05/24/23 History mcg tablet cetirizine 10 mg tablet 1 tab PO DAILY PRN Allergy Symptoms 07/23/21 01/20/24 Unknown History donepezil 5 mg tablet 5 mg PO BEDTIME 02/12/22 01/20/24 05/24/23 History ferrous sulfate 325 mg (65 mg 325 mg PO Q OTHER DAY 05/25/23 01/20/24 05/24/23 History iron) tablet Physical Exam 2 Vital Signs and Narrative: Vital Signs: Last Vital Signs Temp 98.6 F 07/12/24 22:38 Pulse 73 07/12/24 22:38 Resp 15 07/12/24 22:38 BP 136/66 07/12/24 22:38 Pulse Ox 93 07/12/24 22:38 O2 Del Method Room Air 07/12/24 22:38 BMI result Body Mass Index 19.5 General: Thin, elderly female in bed. She is awake and alert and grimacing in pain. She is in no respiratory distress. Eyes: No pallor or jaundice. PERRLA, EOMI HENT: Dry oral mucus membranes. No oropharyngeal lesions. Neck: Supple. No cervical adenopathy. No JVD Cardiovascular: Regular rate and rhythm. Normal heart sounds. No murmurs, rubs or gallops. No JVD. No peripheral edema. Respiratory: Normal respiratory effort with no accessory muscle use. CTAB. Gastrointestinal: Abdomen is soft, non-tender, non-distended. Normoactive bowel sounds in all quadrants. No hepatosplenomegaly Extremities: RLE: Shortened and externally rotated. No edema. No calf tenderness. Good peripheral pulses Skin: Warm/Dry. No rashes. No mottling. Capillary refill is < 2 seconds Neurological: AAOx4. Intact speech & cognition. Normal gait & balance. CN II - XII grossly intact but not individually tested. No motor or sensory deficits Hematologic: No bleeding. No ecchymosis. No swollen or tender lymph nodes. Psychiatric: Cooperative. Appropriate mood and affect Results Labs 07/13/24 05:32 07/12/24 19:14 Labs: Laboratory Results - last 24 hr 07/12/24 07/12/24 19:13 19:14 MCV 92.0 MCH 29.8 MCHC 32.3 RDW 15.7 Plt Count 286 D MPV 9.2 L Immature Gran % (Auto) 0.5 H Neut % (Auto) 91.1 H Lymph % (Auto) 4.1 L [place] % (Auto) 3.6 Eos % (Auto) 0.5 Baso % (Auto) 0.2 Lymph # (Auto) 0.5 L [place] # (Auto) 0.4 Eos # (Auto) 0.1 Baso # (Auto) 0.0 Abs Immat Gran (auto) 0.06 H Absolute Neuts (auto) 10.8 H Absolute Nucleated RBC 0.000 Nucleated RBC % (auto) 0.0 Smear Tech's Comments VERIFIED PT 11.7 INR 1.0 Anion Gap 13 Estim Creat Clear Calc 40.1 Estimated GFR > 60 Random Glucose 161 H Calcium 9.5 Total Creatine Kinase 69 Blood Type O Positive Antibody Screen NEGATIVE Imaging Radiologist's Impressions: Plain x-rays of the pelvis and right hip - right proximal femur fracture Chest x-ray - opacity in the left lower lung zone likely indicates pneumonia - nodular opacities prominent in the right mid lung zone that could be infectious or inflammatory. Assessment and Plan (1) Closed fracture of right hip: Qualifiers: Encounter type: initial encounter Qualified Code(s): S72.001A - Fracture of unspecified part of neck of right femur, initial encounter for closed fracture Status: Acute (2) Unwitnessed fall: Status: Acute (3) Pre-op evaluation: Status: Acute (4) ELIF (iron deficiency anemia): Qualifiers: Iron deficiency anemia type: unspecified iron deficiency Qualified Code(s): D50.9 - Iron deficiency anemia, unspecified Status: Chronic (5) CKD (chronic kidney disease): Status: Chronic Plan 78-year-old female with medical history significant for coronary artery disease, hypertension, depression, chronic renal failure, non-tuberculous mycobacterial lung disease and anemia here with # Right proximal femur fracture - traumatic following an unwitnessed fall - admit for ORIF - keep NPO after midnight - type and screen # Unwitnessed fall - she reports falling at home when she lost her balance - she denies any preceding headaches, dizziness, chest pain or palpitations and did not lose consciousness - she also denies any head strike and imaging studies done so far are negative - we will however monitor her on telemetry to ensure that she has no cardiac arrhythmias. # pre-operative evaluation - patient with known cardiac and pulmonary problems in the remote past - denies any recent chest pain, shortness of breath, cough, fevers or chills - she was getting around using a cane and could easily walk a block or go up a flight of stairs with no difficulties - calculated VELASQUEZ perioperative risk for myocardial infarction or cardiac arrest (JOSE) is 0.2% - calculated ARISCAT score for postoperative pulmonary complications is 30 points conferring an intermediate risk (13.3%) of in-hospital postoperative pulmonary complications - ok to proceed with surgery with no additional cardiac or pulmonary workup - she will however require close postoperative monitoring for which we will continue to follow # Iron deficiency anemia - noted with a hemoglobin of 8.6 grams/deciliter hematocrit 26.6% - she was chronic anemia and is currently on ferrous sulfate - however this is the lowest hemoglobin has been in a while - will type and screen - we will closely monitor # chronic renal failure - she has known history of chronic renal failure with stable renal function - today her BUN is 20 with a creatinine 0.84 - continue to closely monitor DVT: SC Lovenox CODE STATUS: Full code Admission for at least 2 midnights for management of right proximal femur fracture This note is constructed using voice recognition software. While every effort has been made to ensure accuracy, aviation support equipment repairer errors may have been included. Total time managing care of this patient today: 75 minutes. Quality Stroke Does the patient have a stroke diagnosis?: No VTE Prior VTE?: No VTE Risk Level:: Medical - moderate - high VTE Device Contraindication: N/A - Device Ordered VTE Drug Contraindication: N/A - Med Ordered
[2024-07-13] VITALS (14 sets, daily range): BP systolic 113–141; BP diastolic 49–67; PULSE 61–88; RESP 15–20; TEMP 36.2–37.1; O2SAT 97–100
[2024-07-13] MEDS: Enoxaparin Sodium 40 MG/0.4 ML SYRINGE SUBCUT (00:37)
[2024-07-13] MEDS: Dextrose 5 % and 0.45 % NaCl 1,000 ML 100 ML IVCONT ×3 (00:38→19:49)
[2024-07-13] MEDS: HYDROmorphone HCl 1 MG/ML SYRINGE 0.5 MG IVPUSH ×4 (03:27→21:55)
[2024-07-13] MEDS: oxyCODONE HCl Immed Release 5 MG TABLET PO ×2 (04:03→10:30)
[2024-07-13 05:38] LABS: Basophils Percent Auto 0.2 % (0-2); Eosinophils Absolute Auto 0.1 X10*3/uL (0.0-0.4); Eosinophils Percent Auto 0.9 % (0-4); Hematocrit 26.7 % (37.0-47.0); Hemoglobin 8.6 g/dl (12.0-16.0); Imm Gran Abs Auto 0.03 X10*3/uL (0.00-0.03); Imm Gran Pct Auto 0.5 % (0.0-0.4); Lymphocytes Absolute Auto 0.7 X10*3/uL (1.2-4.9); MANUAL DIFF FLAG NO; Mean Corpuscular HGB Conc 32.2 g/dl (31.0-35.0); Mean Corpuscular Hemoglobin 29.8 pg (27.0-33.0); Mean Corpuscular Volume 92.4 fL (80.0-98.0); Mean Platelet Volume 9.2 fL (9.4-12.3); Monocytes Absolute Auto 0.4 X10*3/uL (0.1-1.2); Monocytes Percent Auto 6.3 % (2-11); Neutrophils Absolute Auto 5.4 x10*3/uL (2.0-8.3); Neutrophils Percent Auto 82.1 % (45-73); Platelet Count 235 X10*3/uL (160-400); Red Blood Count 2.89 X10*6/uL (4.20-5.50); Red Cell Distribution Width 15.8 % (11.0-16.0); White Blood Count 6.6 X10*3/uL (4.8-10.8)
[2024-07-13 05:50] LABS: Anion Gap 9 (12-20); Blood Urea Nitrogen 25 mg/dL (9-16); Carbon Dioxide 28 mmol/L (22-29); Chloride 102 mmol/L (96-108); Creatinine Clr Calc Pharmacy 37.4; Estimated Glomerular Filt Rate > 60; Glucose Random 168 mg/dL (60-115); Magnesium 2.1 mg/dL (1.6-2.6); Sodium 135 mmol/L (135-145)
[2024-07-13 06:00] LABS: Troponin-I High Sensitivity 4.3 ng/L (<3.5-17.0)
--- NOTE | 2024-07-13 07:54 | PM.CNOR ---
History of Present Illness HPI Consult date: 07/13/24 Chief complaint: Right femoral neck fracture Narrative: 79-year-old female admitted to the hospital for evaluation and treatment of right femoral neck fracture after a fall Patient reports that yesterday evening she was attempting to go to the refrigerator when she tripped and fell Immediately began to experience significant pain in the right hip Patient went to the ED, where x-rays were taken revealing displaced fracture of the right hip involving the intertrochanteric/subtrochanteric region Patient does not complain of any significant pain today Reports intact sensation in the distal right lower extremity No further acute complaints or concerns at this time Review of Systems Review of Systems: Yes all other systems are reviewed and are negative PMFSH Past Medical History Medical History (Updated 07/13/24 @ 05:43 by Tico Barrett MD) CKD (chronic kidney disease) Sore throat 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 Hemoptysis Lymphadenopathy Injury of right knee Elevated blood sugar Chronic renal failure Renal cyst Vitamin deficiency, unspecified Allergic rhinitis Depressive disorder Osteoarthritis Obesity HTN (hypertension) Anemia Family History Family History Father Cancer Mother Cancer Paternal Grandmother Cancer Surgical History Surgical History History of esophagogastroduodenoscopy (EGD) (~2017) History of section History of liver biopsy (~2021) Social History Social History Household Members: None Housing: Apartment Are you a primary nurse care manager to a significant other at home: No Do you presently have visiting nurse or other home services: Yes Alcohol intake: never Patient Tobacco Use Status: Never used Tobacco Smoked in Last 30 Days: No Use of substances other than those prescribed or required for medical reasons: No Advance Directives: No Advance Directives Information Provided: No Do you have a plan to hurt others: No Plan service: No Current occupational status: retired and disabled Meds Allergies Allergy/AdvReac Type Severity Reaction Status Date / Time No Known Allergies Allergy Verified 07/12/24 17:50 [No Known Allergies*] Active Medications: Current Medications Acetaminophen (Acetaminophen 325 Mg Tablet) 650 mg PO Q6H PRN PRN Reason: Pain, Mild 1-3,fever,headache Al Hydroxide/Mg Hydroxide (Magnesium Hydrox/Alum Hydrox 30 Ml Oral.Susp) 30 ml PO Q4H PRN PRN Reason: Heartburn Calcium Carbonate (Calcium Carbonate 750 Mg Tab.Chew) 750 mg PO Q4H PRN PRN Reason: Heartburn Enoxaparin Sodium (Enoxaparin Sodium 40 Mg/0.4 Ml Syringe) 40 mg SUBCUT Q24H [facility] Last Admin: 07/13/24 00:37 Dose: 40 mg Hydromorphone HCl (Hydromorphone Hcl 1 Mg/Ml Syringe) 0.5 mg IVPUSH Q4H PRN; Protocol PRN Reason: Pain, Severe (Pain Scale 7-10) Last Admin: 07/13/24 03:27 Dose: 0.5 mg Dextrose/Sodium Chloride (D51/2ns) 1,000 mls @ 100 mls/hr IVCONT .Q10H [facility] Last Admin: 07/13/24 00:38 Dose: 100 mls/hr Magnesium Hydroxide (Milk Of Magnesia 30 Ml Oral.Susp) 30 ml PO DAILY PRN PRN Reason: Constipation Melatonin (Melatonin 3 Mg Tablet) 6 mg PO BEDTIME PRN PRN Reason: Insomnia Ondansetron HCl (Ondansetron Hcl 4 Mg/2 Ml Vial) 4 mg IVPUSH Q8H PRN PRN Reason: Nausea and Vomiting Oxycodone HCl (Oxycodone Hcl Immed Release 5 Mg Tablet) 5 mg PO Q6H PRN PRN Reason: Pain, Moderate(Pain Scale 4-6) Last Admin: 07/13/24 04:03 Dose: 5 mg Senna (Sennosides 8.6 Mg Tablet) 17.2 mg PO BEDTIME PRN PRN Reason: Constipation Sodium Chloride (0.9 % Sodium Chloride Flush 3 Ml Syringe) 3 ml IVFLUSH QSHIFT [facility] Last Admin: 07/13/24 00:42 Dose: Not Given Home Medications ?Medication ?Instructions ?Recorded ?Confirmed ?Last Taken ?Type cholecalciferol (vitamin D3) 25 1 tab PO DAILY 07/05/21 01/20/24 05/24/23 History mcg (1,000 unit) tablet cyanocobalamin (vitamin B-12) 500 1 tab DAILY 07/05/21 01/20/24 05/24/23 History mcg tablet cetirizine 10 mg tablet 1 tab PO DAILY PRN Allergy Symptoms 07/23/21 01/20/24 Unknown History donepezil 5 mg tablet 5 mg PO BEDTIME 02/12/22 01/20/24 05/24/23 History ferrous sulfate 325 mg (65 mg 325 mg PO Q OTHER DAY 05/25/23 01/20/24 05/24/23 History iron) tablet Physical Exam Vital Signs: Vital Signs: Last Vital Signs Temp 98.4 F 07/13/24 05:25 Pulse 61 07/13/24 05:25 Resp 15 07/13/24 05:25 BP 113/58 L 07/13/24 05:25 Pulse Ox 98 07/13/24 05:25 O2 Del Method Nasal Cannula 07/13/24 05:25 O2 Flow Rate 2 07/13/24 05:25 BMI result Body Mass Index 19.5 Extrem: Other: Patient was right lower extremity shortened and externally rotated on inspection No evidence of infection Patient is able to flex and extend the digits of the left foot without difficulty Compartments soft, nontender Distal sensation intact Capillary refill brisk Results Labs 07/13/24 05:32 07/13/24 05:32 Labs: Abnormal lab results 07/12/24 07/12/24 07/13/24 Range/Units 19:14 22:51 05:32 WBC 11.8 H (4.8-10.8) X10*3/uL RBC 2.89 L D 2.89 L (4.20-5.50) X10*6/uL Hgb 8.6 L D 9.4 L 8.6 L (12.0-16.0) g/dl Hct 26.6 L D 29.4 L 26.7 L (37.0-47.0) % MPV 9.2 L 9.2 L (9.4-12.3) fL Immature Gran % (Auto) 0.5 H 0.5 H (0.0-0.4) % Neut % (Auto) 91.1 H 82.1 H (45-73) % Lymph % (Auto) 4.1 L 10.0 L (20-40) % Lymph # (Auto) 0.5 L 0.7 L (1.2-4.9) X10*3/uL Abs Immat Gran (auto) 0.06 H (0.00-0.03) X10*3/uL Absolute Neuts (auto) 10.8 H (2.0-8.3) x10*3/uL Anion Gap 9 L (12-20) BUN 28 H 25 H (9-16) mg/dL Random Glucose 161 H 168 H (60-115) mg/dL H & H 07/12/24 07/12/24 07/13/24 Range/Units 19:14 22:51 05:32 Hgb 8.6 L D 9.4 L 8.6 L (12.0-16.0) g/dl Hct 26.6 L D 29.4 L 26.7 L (37.0-47.0) % Coagulation 07/12/24 Range/Units 19:14 INR 1.0 (0.9-1.1) All other labs normal. Diagnostic results Hip x-ray: report reviewed and image reviewed Assessment and Plan (1) Closed fracture of right hip: Qualifiers: Encounter type: initial encounter Qualified Code(s): S72.001A - Fracture of unspecified part of neck of right femur, initial encounter for closed fracture Status: Acute Plan 1. Intertrochanteric fracture of right hip Date of injury 07/12/2024 I educated the patient about the condition. I discussed both operative and nonoperative treatment options. The patient would like to proceed with surgery. The risks and benefits of operative treatment were discussed with the patient and the patient wishes to proceed with surgery. These risks include, but are not limited to, risk of damage to blood vessels, nerves, tendons, infection, recurrence, incomplete relief of preoperative symptoms, persistent pain, possible need for further surgery, and the risks associated with regional blocks and/or anesthesia. Plan is to take the patient to the operating room at some point today, 07/13/2024 for the following procedures: 1. Right hip IM nail under general Keep patient NPO today until surgery Continue pain management per Medicine Continue with all other recommendations per Medicine Procedures Date of Service Date of Service: 07/13/24
--- NOTE | 2024-07-13 09:51 | HO.PM.IMPN ---
Subjective Subjective Date of Service: 07/13/24 Interval History: f/u on fall and femur right femur fracture pain is controlled, surgery is planned today Physical Exam Vital Signs: Vital Signs: Last Vital Signs Temp 97.6 F 07/13/24 08:42 Pulse 70 07/13/24 08:42 Resp 16 07/13/24 08:42 BP 137/62 07/13/24 08:42 Pulse Ox 99 07/13/24 08:42 O2 Del Method Room Air 07/13/24 08:42 O2 Flow Rate 2 07/13/24 05:25 BMI result Body Mass Index 19.5 Const: Other: General: AO X 3, no acute distress Resp: CTA bilateral CVS: S1,S2,RRR GI: +BS, NT, no distention Skin: No rash Neuro: motor grossly intact Psych: appropriate affect Extrem: Other: Patient was right lower extremity shortened and externally rotated on inspection No evidence of infection Patient is able to flex and extend the digits of the left foot without difficulty Compartments soft, nontender Distal sensation intact Capillary refill brisk Objective Data Active Medications Acetaminophen (Acetaminophen 325 Mg Tablet) 650 mg PO Q6H PRN PRN Reason: Pain, Mild 1-3,fever,headache Al Hydroxide/Mg Hydroxide (Magnesium Hydrox/Alum Hydrox 30 Ml Oral.Susp) 30 ml PO Q4H PRN PRN Reason: Heartburn Calcium Carbonate (Calcium Carbonate 750 Mg Tab.Chew) 750 mg PO Q4H PRN PRN Reason: Heartburn Enoxaparin Sodium (Enoxaparin Sodium 40 Mg/0.4 Ml Syringe) 40 mg SUBCUT Q24H [facility] Last Admin: 07/13/24 00:37 Dose: 40 mg Documented By: LILIAM Hydromorphone HCl (Hydromorphone Hcl 1 Mg/Ml Syringe) 0.5 mg IVPUSH Q4H PRN; Protocol PRN Reason: Pain, Severe (Pain Scale 7-10) Last Admin: 07/13/24 08:40 Dose: 0.5 mg Documented By: JOSH Dextrose/Sodium Chloride (D51/2ns) 1,000 mls @ 100 mls/hr IVCONT .Q10H [facility] Last Admin: 07/13/24 08:46 Dose: 100 mls/hr Documented By: JOSH Magnesium Hydroxide (Milk Of Magnesia 30 Ml Oral.Susp) 30 ml PO DAILY PRN PRN Reason: Constipation Melatonin (Melatonin 3 Mg Tablet) 6 mg PO BEDTIME PRN PRN Reason: Insomnia Ondansetron HCl (Ondansetron Hcl 4 Mg/2 Ml Vial) 4 mg IVPUSH Q8H PRN PRN Reason: Nausea and Vomiting Oxycodone HCl (Oxycodone Hcl Immed Release 5 Mg Tablet) 5 mg PO Q6H PRN PRN Reason: Pain, Moderate(Pain Scale 4-6) Last Admin: 07/13/24 04:03 Dose: 5 mg Documented By: LILIAM Senna (Sennosides 8.6 Mg Tablet) 17.2 mg PO BEDTIME PRN PRN Reason: Constipation Sodium Chloride (0.9 % Sodium Chloride Flush 3 Ml Syringe) 3 ml IVFLUSH QSHIFT [facility] Last Admin: 07/13/24 08:41 Dose: Not Given Documented By: JOSH Non-Admin Reason: IV Running Labs 07/13/24 05:32 07/13/24 05:32 Labs: Laboratory Results - last 24 hr 07/12/24 07/12/24 07/13/24 19:13 19:14 05:32 MCV 92.0 92.4 MCH 29.8 29.8 MCHC 32.3 32.2 RDW 15.7 15.8 Plt Count 286 D 235 MPV 9.2 L 9.2 L Immature Gran % (Auto) 0.5 H 0.5 H Neut % (Auto) 91.1 H 82.1 H Lymph % (Auto) 4.1 L 10.0 L [place] % (Auto) 3.6 6.3 Eos % (Auto) 0.5 0.9 Baso % (Auto) 0.2 0.2 Lymph # (Auto) 0.5 L 0.7 L [place] # (Auto) 0.4 0.4 Eos # (Auto) 0.1 0.1 Baso # (Auto) 0.0 0.0 Abs Immat Gran (auto) 0.06 H 0.03 Absolute Neuts (auto) 10.8 H 5.4 Absolute Nucleated RBC 0.000 0.000 Nucleated RBC % (auto) 0.0 0.0 Smear Tech's Comments VERIFIED PT 11.7 INR 1.0 Anion Gap 13 9 L Estim Creat Clear Calc 40.1 37.4 Estimated GFR > 60 > 60 Random Glucose 161 H 168 H Calcium 9.5 9.0 Magnesium 2.1 Total Creatine Kinase 69 74 Blood Type O Positive Antibody Screen NEGATIVE Assessment and Plan (1) Closed fracture of right hip: Status: Acute (2) Leg pain, left: Status: Acute (3) Unwitnessed fall: Status: Acute Plan 78-year-old female with medical history significant for coronary artery disease, hypertension, depression, chronic renal failure, non-tuberculous mycobacterial lung disease and anemia here with Right proximal femur fracture d/t fall for IM nailing today NPO pain control with dilaudid pre-operative evaluation - patient with known cardiac and pulmonary problems in the remote past - denies any recent chest pain, shortness of breath, cough, fevers or chills - she was getting around using a cane and could easily walk a block or go up a flight of stairs with no difficulties - calculated VELASQUEZ perioperative risk for myocardial infarction or cardiac arrest (JOSE) is 0.2% - calculated ARISCAT score for postoperative pulmonary complications is 30 points conferring an intermediate risk (13.3%) of in-hospital postoperative pulmonary complications - ok to proceed with surgery with no additional cardiac or pulmonary workup - she will however require close postoperative monitoring for which we will continue to follow Unwitnessed fall she reports falling at home when she lost her balance she denies any preceding headaches, dizziness, chest pain or palpitations and did not lose consciousness she also denies any head strike and imaging studies done so far are negative we will however monitor her on telemetry to ensure that she has no cardiac arrhythmias. Iron deficiency anemia with a hemoglobin of 8.6 grams/deciliter hematocrit 26.6% she was chronic anemia and is currently on ferrous sulfate however this is the lowest hemoglobin has been in a while will type and screen we will closely monitor CKD, stable DVT: SC Lovenox CODE STATUS: Full code Admission for at least 2 midnights for management of right proximal femur fracture This note is constructed using voice recognition software. While every effort has been made to ensure accuracy, soda worker errors may have been included. Quality Stroke Does the patient have a stroke diagnosis?: No VTE Prior VTE?: No VTE Risk Level:: Medical - moderate - high VTE Device Contraindication: N/A - Device Ordered VTE Drug Contraindication: N/A - Med Ordered
--- NOTE | 2024-07-13 10:32 | PHA.MEDREC ---
Addendum entered by Fabiola Landin RPh 07/13/24 11:33: Med rec was reviewed by [facility]. Original Note: Pharmacy Consult ? Medication Reconciliation Pharmacy has completed the medication reconciliation. Spoke with patient's niece (Kathie) to confirm medications. She read me off of her med list at home. She gets [facility]. Niece reports they take out famotidine and omeprazole (does bid prn) and only give to her prn. She confirmed iron supplement every day. She said patient last had her morning medications yesterday including the omeprazole, did not have night time medications yesterday.
--- NOTE | 2024-07-13 12:22 | MHC.CM.PN ---
CM met with Patient at bedside, in the ED and addressed IMM with her(original was given to Patient and a copy will be placed on the chart). Patient states that she lives in an apartment with her Son and her Daughter/Cat is her HCP. Patient has a [employer] and she uses both a cane and a walker to assist with mobility. Patient will benefit from a PT Eval to assist with disposition; CM has initiated and will follow for dc planning. PCP is .
--- NOTE | 2024-07-13 15:07 | P.CONAN_ITS ---
HPI - Anesthesia Eval Consult details Narrative: 79 yo F admitted with right femoral neck fracture PMFSH Active Problems Active Problems: All Active Problems Unwitnessed fall (Acute) Pre-op evaluation (Acute) CKD (chronic kidney disease) (Chronic) Closed fracture of right hip (Acute) Edema (Acute) Shortness of breath (Acute) Varicose veins of right lower extremity with inflammation (Acute) Hospital discharge follow-up (Acute) Takotsubo cardiomyopathy (Acute) S/P cardiac catheterization (Acute) Non-ST elevation AR (NSTEMI) (Acute) Leg pain, left (Acute) Fungal infection (Acute) Sore throat (Acute) Nontuberculous mycobacterial disease of lung (Acute) Mycobacterial disease (Acute) Hemoptysis (Acute) Lymphadenopathy (Acute) Metastatic non-small cell lung cancer (Acute) Anemia (Acute) ELIF (iron deficiency anemia) (Chronic) Pneumonia (Acute) Cavitary lesion of lung (Acute) Carcinoma of liver (Chronic ~2021) Past Medical History Medical History (Updated 07/13/24 @ 05:43 by Tico Barrett MD) CKD (chronic kidney disease) Sore throat 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 Hemoptysis Lymphadenopathy Injury of right knee Elevated blood sugar Chronic renal failure Renal cyst Vitamin deficiency, unspecified Allergic rhinitis Depressive disorder Osteoarthritis Obesity HTN (hypertension) Anemia Family History Family History Father Cancer Mother Cancer Paternal Grandmother Cancer Family history of problems with anesthesia: No Surgical History Surgical History History of esophagogastroduodenoscopy (EGD) (~2017) History of section History of liver biopsy (~2021) History of Problems with Anesthesia: No Social History Social History Household Members: None Housing: Apartment Are you a primary grounds caretaker to a significant other at home: No Do you presently have visiting nurse or other home services: Yes Alcohol intake: never Patient Tobacco Use Status: Never used Tobacco service: No Current occupational status: retired and disabled Meds Allergies Allergy/AdvReac Type Severity Reaction Status Date / Time No Known Allergies Allergy Verified 07/12/24 17:50 [No Known Allergies*] Active Medications: Current Medications Acetaminophen (Acetaminophen 325 Mg Tablet) 650 mg PO Q6H PRN PRN Reason: Pain, Mild 1-3,fever,headache Al Hydroxide/Mg Hydroxide (Magnesium Hydrox/Alum Hydrox 30 Ml Oral.Susp) 30 ml PO Q4H PRN PRN Reason: Heartburn Calcium Carbonate (Calcium Carbonate 750 Mg Tab.Chew) 750 mg PO Q4H PRN PRN Reason: Heartburn Enoxaparin Sodium (Enoxaparin Sodium 40 Mg/0.4 Ml Syringe) 40 mg SUBCUT Q24H [facility] Last Admin: 07/13/24 00:37 Dose: 40 mg Hydromorphone HCl (Hydromorphone Hcl 1 Mg/Ml Syringe) 0.5 mg IVPUSH Q4H PRN; Protocol PRN Reason: Pain, Severe (Pain Scale 7-10) Last Admin: 07/13/24 12:52 Dose: 0.5 mg Dextrose/Sodium Chloride (D51/2ns) 1,000 mls @ 100 mls/hr IVCONT .Q10H [facility] Last Admin: 07/13/24 08:46 Dose: 100 mls/hr Magnesium Hydroxide (Milk Of Magnesia 30 Ml Oral.Susp) 30 ml PO DAILY PRN PRN Reason: Constipation Melatonin (Melatonin 3 Mg Tablet) 6 mg PO BEDTIME PRN PRN Reason: Insomnia Ondansetron HCl (Ondansetron Hcl 4 Mg/2 Ml Vial) 4 mg IVPUSH Q8H PRN PRN Reason: Nausea and Vomiting Oxycodone HCl (Oxycodone Hcl Immed Release 5 Mg Tablet) 5 mg PO Q6H PRN PRN Reason: Pain, Moderate(Pain Scale 4-6) Last Admin: 07/13/24 10:30 Dose: 5 mg Senna (Sennosides 8.6 Mg Tablet) 17.2 mg PO BEDTIME PRN PRN Reason: Constipation Sodium Chloride (0.9 % Sodium Chloride Flush 3 Ml Syringe) 3 ml IVFLUSH QSHIFT [facility] Last Admin: 07/13/24 08:41 Dose: Not Given Home Medications ?Medication ?Instructions ?Recorded ?Confirmed ?Last Taken ?Type cholecalciferol (vitamin D3) 25 1 tab PO DAILY 07/05/21 07/13/24 07/12/24 History mcg (1,000 unit) tablet cyanocobalamin (vitamin B-12) 500 1 tab DAILY 07/05/21 07/13/24 07/12/24 History mcg tablet cetirizine 10 mg tablet 1 tab PO DAILY PRN Allergy Symptoms 07/23/21 07/13/24 Unknown History donepezil 5 mg tablet 5 mg PO BEDTIME 02/12/22 07/13/24 05/24/23 History ferrous sulfate 325 mg (65 mg 325 mg PO DAILY 05/25/23 07/13/24 07/12/24 History iron) tablet famotidine 40 mg tablet 40 mg PO BEDTIME PRN acid 07/13/24 07/13/24 Unknown History reflux/heartburn mirtazapine 7.5 mg tablet 7.5 mg PO BEDTIME 07/13/24 07/13/24 Unknown History omeprazole 40 mg capsule,delayed 40 mg PO BID PRN acid 07/13/24 07/13/24 07/12/24 History release reflux/heartburn Exam Exam Date and Time: 07/13/24 1505 Height,Weight and Vital Signs: Height 5 ft Weight 45.359 kg Last Vital Signs Temp 98.0 F 07/13/24 14:46 Pulse 75 07/13/24 14:46 Resp 16 07/13/24 14:46 BP 133/67 07/13/24 14:46 Pulse Ox 98 07/13/24 10:54 O2 Del Method Nasal Cannula 07/13/24 14:46 O2 Flow Rate 2 07/13/24 14:46 Pertinent Lab Results Pertinent Lab Results: Laboratory Tests 07/12/24 007/12/24 07/12/24 19:13 19:14 22:51 WBC 11.8 H RBC 2.89 L D Hgb 8.6 L D 9.4 L Hct 26.6 L D 29.4 L MCV 92.0 MCH 29.8 MCHC 32.3 RDW 15.7 Plt Count 286 D MPV 9.2 L Immature Gran % (Auto) 0.5 H Neut % (Auto) 91.1 H Lymph % (Auto) 4.1 L [place] % (Auto) 3.6 Eos % (Auto) 0.5 Baso % (Auto) 0.2 Lymph # (Auto) 0.5 L [place] # (Auto) 0.4 Eos # (Auto) 0.1 Baso # (Auto) 0.0 Abs Immat Gran (auto) 0.06 H Absolute Neuts (auto) 10.8 H Absolute Nucleated RBC 0.000 Nucleated RBC % (auto) 0.0 Smear Tech's Comments VERIFIED PT 11.7 INR 1.0 Sodium 137 Potassium 3.8 Chloride 103 Carbon Dioxide 25 Anion Gap 13 BUN 28 H Creatinine 0.84 Estim Creat Clear Calc 40.1 Estimated GFR > 60 Random Glucose 161 H Calcium 9.5 Magnesium Total Creatine Kinase 69 Troponin I High Sens Blood Type O Positive Antibody Screen NEGATIVE 07/13/24 05:32 WBC 6.6 RBC 2.89 L Hgb 8.6 L Hct 26.7 L MCV 92.4 MCH 29.8 MCHC 32.2 RDW 15.8 Plt Count 235 MPV 9.2 L Immature Gran % (Auto) 0.5 H Neut % (Auto) 82.1 H Lymph % (Auto) 10.0 L [place] % (Auto) 6.3 Eos % (Auto) 0.9 Baso % (Auto) 0.2 Lymph # (Auto) 0.7 L [place] # (Auto) 0.4 Eos # (Auto) 0.1 Baso # (Auto) 0.0 Abs Immat Gran (auto) 0.03 Absolute Neuts (auto) 5.4 Absolute Nucleated RBC 0.000 Nucleated RBC % (auto) 0.0 Smear Tech's Comments PT INR Sodium 135 Potassium 4.0 Chloride 102 Carbon Dioxide 28 Anion Gap 9 L BUN 25 H Creatinine 0.90 Estim Creat Clear Calc 37.4 Estimated GFR > 60 Random Glucose 168 H Calcium 9.0 Magnesium 2.1 Total Creatine Kinase 74 Troponin I High Sens 4.3 D Blood Type Antibody Screen Airway Mallampati Class: III (small mouth) TM Dist: <=3cm Neck ROM: Limited Partial: Lower Loose/Missing/Broken Teeth: Yes (missing and broken teeth on top jaw) Heart: S1S2 Lungs: CTAB Assessment and Plan Assessment Anesthesia Assessment: Anesthesia Plan Discussed and Chart Reviewed Final Anesthetic Review Family History of Problems with Anesthesia: No History of Problems with Anesthesia: No NPO: Yes ASA Class: IV Final Preanesthetic Review: No Changes in Pt Med Stat, Meds/Allgs Chart Reviewed, Consent Obtained/Reviewed and Anes Risks/Benef Reviewed Patient Risk: High Procedure Risk: Intermediate Anesthetic Plan Anesthetic Plan: GA and Agree w/ Assess. and Plan Disposition: Inp. Admit - Standard Bed
--- NOTE | 2024-07-13 15:36 | MHC.SHP ---
Pre-Procedural Eval Section A - 24 Hr Update-Section A only Date of Service: 07/13/24 The patient is an INPATIENT: Yes Changes since office visit: No Cold of Flu in the past 2 weeks, No New Medical Problems, No Changes in Medication and No Patient answered all questions The patient has been examined within 24 hours of the surgical procedure. The History & Physical has been completed within 30 days and I have reviewed it.: Yes Section B - Complete if H&P > 30 days Chief Complaint: Right femoral neck fracture Allergies: Allergies Allergy/AdvReac Type Severity Reaction Status Date / Time No Known Allergies Allergy Verified 07/12/24 17:50 [No Known Allergies*] Plan I have reviewed the history and physical and performed a pertinent physical examination on my patient. No changes have occurred unless specified. Time Spent With Patient Time: Total time managing care of this patient today ____ minutes.
--- NOTE | 2024-07-13 17:37 | PM.OP ---
Brief Operative Note Date of Service: 07/13/24 Pre-op diagnosis: Right hip fracture Post-op diagnosis: same Procedure: Right hip IMN Implants: Willi [id number] 125 deg imn with 95mm hip screw and 42.5 distal interlock Surgeon: Deo Oakes MD Anesthesia: GLMA and local Was an Hook And Eye Machine Operator used for this Procedure?: No Estimated blood loss (mL): 150 IV fluids (mL): 750 Pathology: none sent Condition: stable Disposition: PACU
[2024-07-13] MEDS: HYDROmorphone HCl 0.5 MG/0.5 ML SYRINGE 0.25 MG IVPUSH ×2 (17:50→18:20)
[2024-07-14] VITALS (15 sets, daily range): BP systolic 96–126; BP diastolic 47–80; PULSE 75–96; RESP 16–18; TEMP 36.1–36.9; O2SAT 93–99
[2024-07-14] MEDS: ceFAZolin Sodium/Dextrose,Iso 2 GM/50 ML PIGGYBACK IV (00:05)
[2024-07-14] MEDS: Enoxaparin Sodium 40 MG/0.4 ML SYRINGE SUBCUT ×2 (00:07→23:05)
[2024-07-14] MEDS: Dextrose 5 % and 0.45 % NaCl 1,000 ML 100 ML IVCONT (05:31)
--- NOTE | 2024-07-14 08:43 | PM.PNORT ---
Subjective Subjective Date of Service: 07/14/24 Interval history: Postop day 1 status post right hip IM nail Patient resting comfortably in bed this morning Pain well managed No acute events overnight No other acute complaints or concerns at this time Physical Exam Vital Signs: Vital Signs: Last Vital Signs Temp 97 F 07/14/24 07:06 Pulse 84 07/14/24 07:06 Resp 17 07/14/24 07:06 BP 100/54 L 07/14/24 07:06 Pulse Ox 99 07/14/24 07:06 O2 Del Method Nasal Cannula 07/14/24 07:06 O2 Flow Rate 2 07/14/24 07:06 BMI result Body Mass Index 19.5 Extrem: Other: Dressing on right hip clean, dry, intact No evidence of surrounding erythema, ecchymosis No evidence of infection Patient is able to flex and extend the digits of the left foot without difficulty Compartments soft, nontender Distal sensation intact Capillary refill brisk Procedures Date of Service Date of Service: 07/14/24 Progress Note: A&P Assessment and plan (1) Closed fracture of right hip: Status: Acute Plan 1. Status post right hip IM nail DOS 07/13/2024 Pain management PT/OT eval is pending Begin Lovenox for DVT prophylaxis Dispo planning-pain management, medical clearance, PT/OT evaluation Continue with all other recommendations per Medicine Time Spent With Patient Time: Total time managing care of this patient today ____ minutes. Quality Stroke Does the patient have a stroke diagnosis?: No VTE Prior VTE?: No VTE Risk Level:: Medical - moderate - high VTE Device Contraindication: N/A - Device Ordered VTE Drug Contraindication: N/A - Med Ordered
[2024-07-14] MEDS: HYDROmorphone HCl 1 MG/ML SYRINGE 0.5 MG IVPUSH ×2 (09:12→21:10)
--- NOTE | 2024-07-14 10:03 | HO.PM.IMPN ---
Subjective Subjective Date of Service: 07/14/24 Interval History: f/u on fall and femur right femur fracture pain is controlled, had surgery yesterday Physical Exam Vital Signs: Vital Signs: Last Vital Signs Temp 97 F 07/14/24 07:06 Pulse 84 07/14/24 07:06 Resp 17 07/14/24 07:06 BP 100/54 L 07/14/24 07:06 Pulse Ox 99 07/14/24 07:06 O2 Del Method Nasal Cannula 07/14/24 07:06 O2 Flow Rate 2 07/14/24 07:06 BMI result Body Mass Index 19.5 Const: Other: General: AO X 3, no acute distress Resp: CTA bilateral CVS: S1,S2,RRR GI: +BS, NT, no distention Skin: surgery site d/c/i Neuro: motor grossly intact Psych: appropriate affect Objective Data Active Medications Acetaminophen (Acetaminophen 325 Mg Tablet) 650 mg PO Q6H PRN PRN Reason: Pain, Mild 1-3,fever,headache Al Hydroxide/Mg Hydroxide (Magnesium Hydrox/Alum Hydrox 30 Ml Oral.Susp) 30 ml PO Q4H PRN PRN Reason: Heartburn Calcium Carbonate (Calcium Carbonate 750 Mg Tab.Chew) 750 mg PO Q4H PRN PRN Reason: Heartburn Enoxaparin Sodium (Enoxaparin Sodium 40 Mg/0.4 Ml Syringe) 40 mg SUBCUT Q24H BRENDA Last Admin: 07/14/24 00:07 Dose: 40 mg Documented By: ULISES Hydromorphone HCl (Hydromorphone Hcl 1 Mg/Ml Syringe) 0.5 mg IVPUSH Q4H PRN; Protocol PRN Reason: Pain, Severe (Pain Scale 7-10) Last Admin: 07/14/24 09:12 Dose: 0.5 mg Documented By: ANAND Magnesium Hydroxide (Milk Of Magnesia 30 Ml Oral.Susp) 30 ml PO DAILY PRN PRN Reason: Constipation Melatonin (Melatonin 3 Mg Tablet) 6 mg PO BEDTIME PRN PRN Reason: Insomnia Naloxone HCl (Naloxone Hcl 0.4 Mg/Ml Vial) 0.04 mg IVPUSH Q5M PRN PRN Reason: Excessive sedation or RR < 8 Ondansetron HCl (Ondansetron Hcl 4 Mg/2 Ml Vial) 4 mg IVPUSH Q8H PRN PRN Reason: Nausea and Vomiting Oxycodone HCl (Oxycodone Hcl Immed Release 5 Mg Tablet) 5 mg PO Q6H PRN PRN Reason: Pain, Moderate(Pain Scale 4-6) Last Admin: 07/13/24 10:30 Dose: 5 mg Documented By: JOSH Senna (Sennosides 8.6 Mg Tablet) 17.2 mg PO BEDTIME PRN PRN Reason: Constipation Sodium Chloride (0.9 % Sodium Chloride Flush 3 Ml Syringe) 3 ml IVFLUSH QSHIFT BRENDA Last Admin: 07/14/24 07:47 Dose: Not Given Documented By: ANAND Non-Admin Reason: IV Running Labs 07/13/24 05:32 07/13/24 05:32 Assessment and Plan (1) Closed fracture of right hip: Status: Acute (2) Leg pain, left: Status: Acute (3) Unwitnessed fall: Status: Acute Plan 78-year-old female with medical history significant for coronary artery disease, hypertension, depression, chronic renal failure, non-tuberculous mycobacterial lung disease and anemia here with Right proximal femur fracture d/t fall s/pIM nailing 07/13 pain control with dilaudid, oxycodone Iron deficiency anemia, [facility] for further drop post surgery check CBC today CKD, stable DVT: SC Lovenox CODE STATUS: Full code Admission for at least 2 midnights for management of right proximal femur fracture Dispo: to shorter term rehab Quality Stroke Does the patient have a stroke diagnosis?: No VTE Prior VTE?: No VTE Risk Level:: Medical - moderate - high VTE Device Contraindication: N/A - Device Ordered VTE Drug Contraindication: N/A - Med Ordered
[2024-07-14 10:25] LABS: Hematocrit 21.4 % (37.0-47.0); Mean Corpuscular HGB Conc 31.8 g/dl (31.0-35.0); Mean Corpuscular Hemoglobin 29.8 pg (27.0-33.0); Mean Corpuscular Volume 93.9 fL (80.0-98.0); Mean Platelet Volume 9.4 fL (9.4-12.3); Platelet Count 209 X10*3/uL (160-400); Red Blood Count 2.28 X10*6/uL (4.20-5.50); Red Cell Distribution Width 15.6 % (11.0-16.0); White Blood Count 8.5 X10*3/uL (4.8-10.8)
[2024-07-14 10:37] LABS: Hemoglobin 6.8 g/dl (12.0-16.0)
[2024-07-14 10:58] LABS: Anion Gap 9 (12-20); Blood Urea Nitrogen 19 mg/dL (9-16); Calcium 8.4 mg/dL (8.4-10.2); Carbon Dioxide 27 mmol/L (22-29); Chloride 103 mmol/L (96-108); Creatinine Clr Calc Pharmacy 40.1; Estimated Glomerular Filt Rate > 60; Glucose Random 129 mg/dL (60-115); Potassium 4.1 mmol/L (3.3-5.1); Sodium 135 mmol/L (135-145)
[2024-07-14] MEDS: oxyCODONE HCl Immed Release 5 MG TABLET PO ×2 (11:48→18:11)
[2024-07-14] MEDS: Acetaminophen 325 MG TABLET 650 MG PO (11:48)
--- NOTE | 2024-07-14 13:53 | MHC.CM.PN ---
PT recommending STR. Discussed w/ patient who requested that this CM discuss w/ son & dtr. CM spoke w/ son, Doni, who is agreeable to STR and accepts a bed [facility]. [facility] will initiate auth. Anticipate dc tomorrow.
[2024-07-14] MEDS: 0.9 % Sodium Chloride Flush 3 ML SYRINGE IVFLUSH (21:11)
[2024-07-15] MEDS: oxyCODONE HCl Immed Release 5 MG TABLET PO ×3 (00:28→23:48)
[2024-07-15] MEDS: HYDROmorphone HCl 1 MG/ML SYRINGE 0.5 MG IVPUSH (01:54)
[2024-07-15 04:00] VITALS: BP 104/54; PULSE 79; RESP 18; TEMP 36.4; O2SAT 94
[2024-07-15 06:05] LABS: Hematocrit 27.8 % (37.0-47.0); Hemoglobin 9.1 g/dl (12.0-16.0); Mean Corpuscular HGB Conc 32.7 g/dl (31.0-35.0); Mean Corpuscular Hemoglobin 29.3 pg (27.0-33.0); Mean Corpuscular Volume 89.4 fL (80.0-98.0); Mean Platelet Volume 9.7 fL (9.4-12.3); Platelet Count 160 X10*3/uL (160-400); Red Blood Count 3.11 X10*6/uL (4.20-5.50); Red Cell Distribution Width 16.7 % (11.0-16.0); White Blood Count 6.5 X10*3/uL (4.8-10.8)
[2024-07-15 06:17] LABS: Anion Gap 9 (12-20); Blood Urea Nitrogen 23 mg/dL (9-16); Calcium 8.6 mg/dL (8.4-10.2); Carbon Dioxide 26 mmol/L (22-29); Chloride 104 mmol/L (96-108); Creatinine Clr Calc Pharmacy 42.7; Estimated Glomerular Filt Rate > 60; Glucose Random 96 mg/dL (60-115); Potassium 4.1 mmol/L (3.3-5.1); Sodium 135 mmol/L (135-145)
[2024-07-15 07:23] VITALS: BP 101/55; PULSE 89; RESP 16; TEMP 36.7; O2SAT 94
--- NOTE | 2024-07-15 07:38 | P.DS_ITS ---
DS: Providers Provider Date of Service: 07/15/24 <Dhiraj Pimentel MD - Last Filed: 07/14/24 21:15> Date of admission: 07/12/24 23:55 <Dhiraj Pimentel MD - Last Filed: 07/14/24 21:15> Date of discharge: 07/15/24 <Dhiraj Pimentel MD - Last Filed: 07/14/24 21:15> Primary care physician: Jefferson Sosa MD <Dhiraj Pimentel MD - Last Filed: 07/14/24 21:15> Consults: 07/13/24 07:30 Consult to Orthopedics Routine Consulting Provider: [facility] Reason for consultation: right femur fracture Has provider been notified: No <Dhiraj Pimentel MD - Last Filed: 07/14/24 21:15> DS: Diagnosis Discharge Diagnosis (1) Closed fracture of right hip: Status: Acute <Dhiraj Pimentel MD - Last Filed: 07/14/24 21:15> (2) Leg pain, left: Status: Acute <Dhiraj Pimentel MD - Last Filed: 07/14/24 21:15> (3) Unwitnessed fall: Status: Acute <Dhiraj Pimentel MD - Last Filed: 07/14/24 21:15> DS: Summary Hospital Course Hospital Course: admission hpi Chief Complaint: Fall earlier today with resultant right hip pain Patient is a 78-year-old female with medical history significant for coronary artery disease, hypertension, depression, chronic renal failure, non-tuberculous mycobacterial lung disease and anemia who presents to the emergency room from her residence complaining of right hip pain following a fall. She reports that she lost her balance while walking to the refrigerator and fell landing on her right hip. She developed severe pain and was unable to ambulate thereafter. She denies any head strike or associated chest pain, dizziness or loss of consciousness. It is unclear what time she fell or how long she was down. A plain x-ray of the right hip done when she arrived to the emergency room showed a slightly displaced fracture of the right proximal femur involving the lesser trochanter and subtrochanteric region. Blood work done revealed anemia with a hemoglobin of 8.600 hematocrit 26.6, mild leukocytosis 11.8 K, mild renal insufficiency with a BUN of 20 and a creatinine of 0.84 and a mildly elevated blood sugar at 161. Assessment of closed right proximal femoral fracture was made and admission requested. The case was discussed with the orthopedic surgeon certified personal finance counselor who recommended making the patient NPO in anticipation for surgery this morning. Of note patient she has no known cardiopulmonary issues. She ambulates using a cane and has good METs. hospital course: Patient presented with fall resulting in right distal femur fracture, thought fall was unwitnessed, she denied syncope or loc. She underwent a right IMN on 07/13 and is doing well post operatively, however needed transfusion of 2 units given underlying chronic anemia. H+H stable at 9.1/27.8, from 6.8/21.4 yesterday prior to transfusion. pt is feeling well, moderate pain with movement, no pain at rest. feels ready to go to STR. PT is recommending short term rehab. <Dhiraj Pimentel MD - Last Filed: 07/14/24 21:15> Status at Discharge Functional status at discharge: uses cane/walker <Dorothy Mccullough PA-C - Last Filed: 07/15/24 13:34> Time Attestation Discharge Coordination Time (in mins): 45 <Dhiraj Pimentel MD - Last Filed: 07/14/24 21:15> Quality: Safe Use of Opioids Does Pt have an Active Cancer Diagnosis on the Problem List?: No <Dhiraj Pimentel MD - Last Filed: 07/14/24 21:15> Quality: Stroke Does the patient have a stroke diagnosis?: No <Dhiraj Pimentel MD - Last Filed: 07/14/24 21:15> Physical Exam Vital Signs: Vital Signs: Last Vital Signs Temp 98.5 F 07/14/24 19:17 Pulse 96 07/14/24 19:17 Resp 18 07/14/24 19:17 BP 126/80 07/14/24 19:17 Pulse Ox 93 07/14/24 19:17 O2 Del Method Room Air 07/14/24 19:17 O2 Flow Rate 2 07/14/24 07:06 BMI result Body Mass Index 19.5 <Dhiraj Pimentel MD - Last Filed: 07/14/24 21:15> General: AOx3, no acute distress Resp: CTA bilaterally CVS: S1, S2, RRR GI: +BS, NT, no distention Skin: Warm, dry. no erythema or purulent drainage on bandages. Neuro: Cranial nerves II-XII grossly intact bilaterally. Motor grossly intact bilaterally. sensation and motor intact bilateral lower extremities. Extremities: No LE edema Psych: Appropriate affect <Dorothy Mccullough PA-C - Last Filed: 07/15/24 13:34> Const: Other: General: AO X 3, no acute distress Resp: CTA bilateral CVS: S1,S2,RRR GI: +BS, NT, no distention Skin: surgery site d/c/i Neuro: motor grossly intact Psych: appropriate affect <Dhiraj Pimentel MD - Last Filed: 07/14/24 21:15> DS: Data Data Completed and Pending Completed studies during hospitalization [Text1]: Procedures Excision of Right Lobe Liver, Percutaneous Approach, Diagnostic (07/05/21) <Dhiarj Pimentel MD - Last Filed: 07/14/24 21:15> Labs on day of discharge: Laboratory Results - last 24 hr 07/12/24 07/14/24 19:13 10:15 WBC 8.5 RBC 2.28 L D Hgb 6.8 L* D Hct 21.4 L MCV 93.9 MCH 29.8 MCHC 31.8 RDW 15.6 Plt Count 209 MPV 9.4 Absolute Nucleated RBC 0.000 Nucleated RBC % (auto) 0.0 Sodium 135 Potassium 4.1 Chloride 103 Carbon Dioxide 27 Anion Gap 9 L BUN 19 H Creatinine 0.84 Estim Creat Clear Calc 40.1 Estimated GFR > 60 Random Glucose 129 H Calcium 8.4 D Blood Type O Positive Antibody Screen NEGATIVE Crossmatch See Detail <Dhiraj Pimentel MD - Last Filed: 07/14/24 21:15> Discharge Plan Discharge Anticipated Discharge Date/Time: 07/15/24 21:03 <Dhiraj Pimentel MD - Last Filed: 07/14/24 21:15> Patient Disposition: Xfer SNF <Dhiraj Pimentel MD - Last Filed: 07/14/24 21:15> Discharge Diagnosis: Fall, right femur fracture <Dhiraj Pimentel MD - Last Filed: 07/14/24 21:15> Fall, right femur fracture <Dorothy Mccullough PA-C - Last Filed: 07/15/24 13:34> Referrals: Florin Ivy PA [Physician [employer]] - 2 Weeks (07/26/24 13:15 [facility] Florin Ivy PA) Jefferson Sosa MD [Primary Care Provider] - 1 Week <Dhiraj Pimentel MD - Last Filed: 07/14/24 21:15> Discharge Medications: New oxycodone 5 mg Tablet 5 mg PO Q6H PRN (Reason: Pain, Moderate(Pain Scale 4-6)) Qty: 20 0RF Rx Instructions: Partial Fill upon patient request. acetaminophen 325 mg Tablet 650 mg PO Q6H PRN (Reason: Pain, Mild 1-3,Fever,Headache) Qty: 60 0RF melatonin 3 mg Tablet 6 mg PO BEDTIME PRN (Reason: Insomnia) Qty: 30 0RF naloxone 0.4 mg/mL Solution 0.04 mg IVPUSH Q5M PRN (Reason: Excessive sedation or RR < 8) Qty: 10 0RF docusate sodium [Colace] 100 mg capsule 100 mg PO BID Qty: 60 0RF enoxaparin 40 mg/0.4 mL Syringe 40 mg subcut Q24H Qty: 40 0RF magnesium hydroxide [Milk of Magnesia] 400 mg/5 mL Suspension 30 ml PO DAILY PRN (Reason: Constipation) Qty: 30 0RF Continued cyanocobalamin (vitamin B-12) 500 mcg tablet 1 tab DAILY cholecalciferol (vitamin D3) 25 mcg (1,000 unit) tablet 1 tab PO DAILY cetirizine 10 mg tablet 1 tab PO DAILY PRN (Reason: Allergy Symptoms) ferrous sulfate 325 mg (65 mg iron) tablet 325 mg PO DAILY mirtazapine 7.5 mg tablet 7.5 mg PO BEDTIME famotidine 40 mg tablet 40 mg PO BEDTIME PRN (Reason: acid reflux/heartburn) omeprazole 40 mg capsule,delayed release(DR/EC) 40 mg PO BID PRN (Reason: acid reflux/heartburn) donepezil 5 mg tablet 5 mg PO BEDTIME <Dhiraj Pimentel MD - Last Filed: 07/14/24 21:15> Diet: Advance to usual diet <Dhiraj Pimentel MD - Last Filed: 07/14/24 21:15> Advance to usual diet <Dorothy Mccullough PA-C - Last Filed: 07/15/24 13:34> Activity on Discharge: As tolerated <Dhiraj Pimentel MD - Last Filed: 07/14/24 21:15> As tolerated <Dorothy Mccullough PA-C - Last Filed: 07/15/24 13:34> Stand Alone Forms: Patient Portal Discharge page <Dhiraj Pimentel MD - Last Filed: 07/14/24 21:15> Print Language: Kazakh <Dhiraj Pimentel MD - Last Filed: 07/14/24 21:15> Care Plan Goals: recovery from hip fracture due to fall <Dhiraj Pimentel MD - Last Filed: 07/14/24 21:15> Health Concerns: hip fracture fall anemia <Dhiraj Pimentel MD - Last Filed: 07/14/24 21:15> Plan of Treatment: to short term rehab weight bearing as koki DVT prophylaxis with lovenox follow up with orthopedic surgery Oxycodone and tylenol for pain control <Dhiraj Pimentel MD - Last Filed: 07/14/24 21:15> Assessment: see above <Dhiraj Pimentel MD - Last Filed: 07/14/24 21:15>
[2024-07-15 08:31] LABS: Glucose, Whole Blood 65 mg/dL (60-115)
[2024-07-15] MEDS: 0.9 % Sodium Chloride Flush 3 ML SYRINGE IVFLUSH ×3 (10:01→23:26)
--- NOTE | 2024-07-15 10:11 | PM.PNORT ---
Subjective Subjective Date of Service: 07/15/24 Interval history: Postop day 2 status post right hip IM nail Patient resting comfortably in bed this morning Pain well managed No acute events overnight No other acute complaints or concerns at this time Physical Exam Vital Signs: Vital Signs: Last Vital Signs Temp 98.1 F 07/15/24 07:23 Pulse 89 07/15/24 07:23 Resp 16 07/15/24 07:23 BP 101/55 L 07/15/24 07:23 Pulse Ox 94 07/15/24 07:23 O2 Del Method Room Air 07/15/24 07:23 O2 Flow Rate 2 07/14/24 07:06 BMI result Body Mass Index 19.5 Extrem: Other: Dressing on right hip clean, dry, intact No evidence of surrounding erythema, ecchymosis No evidence of infection Patient is able to flex and extend the digits of the left foot without difficulty Compartments soft, nontender Distal sensation intact Capillary refill brisk Procedures Date of Service Date of Service: 07/15/24 Progress Note: A&P Assessment and plan (1) Closed fracture of right hip: Status: Acute Plan 1. Status post right hip IM nail DOS 07/13/2024 Pain management PT/OT eval is pending Begin Lovenox for DVT prophylaxis Dispo planning-pain management, medical clearance, PT/OT evaluation Continue with all other recommendations per Medicine Time Spent With Patient Time: Total time managing care of this patient today ____ minutes. Quality Stroke Does the patient have a stroke diagnosis?: No VTE Prior VTE?: No VTE Risk Level:: Medical - moderate - high VTE Device Contraindication: N/A - Device Ordered VTE Drug Contraindication: N/A - Med Ordered
[2024-07-15 15:00] VITALS: O2SAT 95
--- NOTE | 2024-07-15 15:05 | P.PNIM_ITS ---
Subjective Subjective Date of Service: 07/15/24 Interval History: f/u on fall and femur right femur fracture pain is controlled, had surgery 3/6 Constitutional Constitutional: Denies chills, Denies fatigue, Denies fever(s) and Denies headache(s) Eyes Eyes: Denies change in vision and Denies photophobia ENT Ears, Nose, Mouth, and Throat: Denies headache(s) Cardiovascular Cardiovascular: Denies chest pain, Denies rapid heart rate, Denies leg edema and Denies dyspnea Respiratory Respiratory: Denies cough, Denies dyspnea and Denies wheezing Gastrointestinal Gastrointestinal: Denies diarrhea, Denies nausea and Denies vomiting Genitourinary Genitourinary: Denies dysuria and Denies urinary urgency Musculoskeletal Musculoskeletal: Reports as per HPI Integumentary/Breasts Skin/Breast: Denies rash Neurologic Neurologic: Denies confusion and Denies headache(s) Psychiatric Psychiatric: Denies confusion Endocrine Endocrine: Denies fatigue Allergic/Immunologic Allergic/Immunologic: Denies wheezing Physical Exam 2 Vital Signs: Vital Signs: Last Vital Signs Temp 98.1 F 07/15/24 07:23 Pulse 89 07/15/24 07:23 Resp 16 07/15/24 07:23 BP 101/55 L 07/15/24 07:23 Pulse Ox 94 07/15/24 07:23 O2 Del Method Room Air 07/15/24 07:23 O2 Flow Rate 2 07/14/24 07:06 BMI result Body Mass Index 19.5 General: AOx3, no acute distress Resp: CTA bilaterally CVS: S1, S2, RRR GI: +BS, NT, no distention Skin: Warm, dry Neuro: Cranial nerves II-XII grossly intact bilaterally. Motor grossly intact bilaterally. surgical site appears clean, dry, no sign of infection. sensation intact BLE. Extremities: No LE edema Psych: Appropriate affect Const: General: No confusion Orientation/consciousness: No confusion Eyes: Direct Ophthalmoscopy: No photophobia Neuro: General: No confusion Objective Data Active Medications Acetaminophen (Acetaminophen 325 Mg Tablet) 650 mg PO Q6H PRN PRN Reason: Pain, Mild 1-3,fever,headache Last Admin: 07/14/24 11:48 Dose: 650 mg Documented By: ANAND Al Hydroxide/Mg Hydroxide (Magnesium Hydrox/Alum Hydrox 30 Ml Oral.Susp) 30 ml PO Q4H PRN PRN Reason: Heartburn Calcium Carbonate (Calcium Carbonate 750 Mg Tab.Chew) 750 mg PO Q4H PRN PRN Reason: Heartburn Enoxaparin Sodium (Enoxaparin Sodium 40 Mg/0.4 Ml Syringe) 40 mg SUBCUT Q24H [facility] Last Admin: 07/14/24 23:05 Dose: 40 mg Documented By: SOFI Hydromorphone HCl (Hydromorphone Hcl 1 Mg/Ml Syringe) 0.5 mg IVPUSH Q4H PRN; Protocol PRN Reason: Pain, Severe (Pain Scale 7-10) Last Admin: 07/15/24 01:54 Dose: 0.5 mg Documented By: SOFI Magnesium Hydroxide (Milk Of Magnesia 30 Ml Oral.Susp) 30 ml PO DAILY PRN PRN Reason: Constipation Melatonin (Melatonin 3 Mg Tablet) 6 mg PO BEDTIME PRN PRN Reason: Insomnia Naloxone HCl (Naloxone Hcl 0.4 Mg/Ml Vial) 0.04 mg IVPUSH Q5M PRN PRN Reason: Excessive sedation or RR < 8 Ondansetron HCl (Ondansetron Hcl 4 Mg/2 Ml Vial) 4 mg IVPUSH Q8H PRN PRN Reason: Nausea and Vomiting Oxycodone HCl (Oxycodone Hcl Immed Release 5 Mg Tablet) 5 mg PO Q6H PRN PRN Reason: Pain, Moderate(Pain Scale 4-6) Last Admin: 07/15/24 10:01 Dose: 5 mg Documented By: CORNELIUS Senna (Sennosides 8.6 Mg Tablet) 17.2 mg PO BEDTIME PRN PRN Reason: Constipation Sodium Chloride (0.9 % Sodium Chloride Flush 3 Ml Syringe) 3 ml IVFLUSH QSHIFT [facility] Last Admin: 07/15/24 10:01 Dose: 3 ml Documented By: CORNELUIS Labs 07/15/24 05:35 07/15/24 05:35 Labs: Laboratory Results - last 24 hr 07/12/24 07/15/24 07/15/24 19:13 05:35 08:22 MCV 89.4 MCH 29.3 MCHC 32.7 RDW 16.7 H Plt Count 160 MPV 9.7 Absolute Nucleated RBC 0.000 Nucleated RBC % (auto) 0.0 Anion Gap 9 L Estim Creat Clear Calc 42.7 Estimated GFR > 60 POC Glucose 65 Random Glucose 96 Calcium 8.6 Blood Type O Positive Antibody Screen NEGATIVE Crossmatch See Detail Assessment and Plan (1) Closed fracture of right hip: Status: Acute Plan 78-year-old female with medical history significant for coronary artery disease, hypertension, depression, chronic renal failure, non-tuberculous mycobacterial lung disease and anemia here with Right proximal femur fracture d/t fall s/pIM nailing / pain control with Dilaudid, oxycodone awaiting bed for STR Iron deficiency anemia, watch for further drop post surgery H+H improved monitor CBC CKD, stable DVT: SC Lovenox CODE STATUS: Full code Admission for at least 2 midnights for management of right proximal femur fracture Dispo: to shorter term rehab Quality Stroke Does the patient have a stroke diagnosis?: No VTE Prior VTE?: No VTE Risk Level:: Medical - moderate - high VTE Device Contraindication: N/A - Device Ordered VTE Drug Contraindication: N/A - Med Ordered
[2024-07-15 15:11] VITALS: BP 123/60; PULSE 96; RESP 16; TEMP 36.2; O2SAT 95
[2024-07-15 19:12] VITALS: BP 123/58; PULSE 90; RESP 18; TEMP 36.8; O2SAT 94
[2024-07-15] MEDS: Enoxaparin Sodium 40 MG/0.4 ML SYRINGE SUBCUT (23:26)
[2024-07-16 00:48] VITALS: RESP 18
[2024-07-16 03:25] VITALS: BP 105/58; PULSE 80; RESP 16; TEMP 36.4; O2SAT 95
[2024-07-16 07:31] VITALS: BP 116/62; PULSE 83; RESP 18; TEMP 36.6; O2SAT 98
[2024-07-16] MEDS: 0.9 % Sodium Chloride Flush 3 ML SYRINGE IVFLUSH ×3 (08:35→22:54)
[2024-07-16] MEDS: Sennosides/Docusate Sodium TABLET 1 TAB PO ×2 (12:30→20:21)
--- NOTE | 2024-07-16 12:54 | P.PNIM_ITS ---
Subjective Subjective Date of Service: 07/16/24 Interval History: seen and examined this morning follow up POD #2 s/p right IM nail sitting up, eating breakfast - has some hip pain Review of Systems Review of Systems: Yes all other systems are reviewed and are negative Constitutional Constitutional: Denies chills and Denies fever(s) Cardiovascular Cardiovascular: Denies chest pain and Denies palpitations Endocrine Endocrine: Denies palpitations Physical Exam 2 Vital Signs: Vital Signs: Last Vital Signs Temp 97.8 F 07/16/24 07:31 Pulse 83 07/16/24 07:31 Resp 18 07/16/24 07:31 BP 116/62 07/16/24 07:31 Pulse Ox 98 07/16/24 07:31 O2 Del Method Room Air 07/16/24 07:31 O2 Flow Rate 2 07/14/24 07:06 BMI result Body Mass Index 19.5 Const: General: cooperative, comfortable, alert and awake Nutritional Appearance: thin Resp: Effort & Inspection: normal respiratory effort, able to speak in complete sentences, no respiratory distress and no use of accessory muscles Cardio: Rate: regular rate Neuro: Other: grossly nonfocal Objective Data Active Medications Acetaminophen (Acetaminophen 325 Mg Tablet) 650 mg PO Q6H PRN PRN Reason: Pain, Mild 1-3,fever,headache Last Admin: 07/14/24 11:48 Dose: 650 mg Documented By: ANAND Al Hydroxide/Mg Hydroxide (Magnesium Hydrox/Alum Hydrox 30 Ml Oral.Susp) 30 ml PO Q4H PRN PRN Reason: Heartburn Calcium Carbonate (Calcium Carbonate 750 Mg Tab.Chew) 750 mg PO Q4H PRN PRN Reason: Heartburn Cyanocobalamin (Cyanocobalamin (Vitamin B-12) 500 Mcg Tablet) 500 mcg PO DAILY BRENDA Donepezil HCl (Donepezil Hcl 5 Mg Tablet) 5 mg PO BEDTIME BRENDA Enoxaparin Sodium (Enoxaparin Sodium 40 Mg/0.4 Ml Syringe) 40 mg SUBCUT Q24H BRENDA Last Admin: 07/15/24 23:26 Dose: 40 mg Documented By: SOFI Ferrous Sulfate (Ferrous Sulfate 324 Mg Tablet.Dr) 324 mg PO DAILY BRENDA Hydromorphone HCl (Hydromorphone Hcl 1 Mg/Ml Syringe) 0.5 mg IVPUSH Q4H PRN; Protocol PRN Reason: Pain, Severe (Pain Scale 7-10) Last Admin: 07/15/24 01:54 Dose: 0.5 mg Documented By: SOFI Magnesium Hydroxide (Milk Of Magnesia 30 Ml Oral.Susp) 30 ml PO DAILY PRN PRN Reason: Constipation Melatonin (Melatonin 3 Mg Tablet) 6 mg PO BEDTIME PRN PRN Reason: Insomnia Mirtazapine (Mirtazapine 7.5 Mg Tablet) 7.5 mg PO BEDTIME [facility] Naloxone HCl (Naloxone Hcl 0.4 Mg/Ml Vial) 0.04 mg IVPUSH Q5M PRN PRN Reason: Excessive sedation or RR < 8 Omeprazole (Omeprazole 40 Mg Capsule.Dr) 40 mg PO BID PRN PRN Reason: acid reflux/heartburn Ondansetron HCl (Ondansetron Hcl 4 Mg/2 Ml Vial) 4 mg IVPUSH Q8H PRN PRN Reason: Nausea and Vomiting Oxycodone HCl (Oxycodone Hcl Immed Release 5 Mg Tablet) 5 mg PO Q6H PRN PRN Reason: Pain, Moderate(Pain Scale 4-6) Last Admin: 07/15/24 23:48 Dose: 5 mg Documented By: SOFI Senna/Docusate Sodium (Sennosides/Docusate Sodium Tablet) 1 tab PO BID [facility] Last Admin: 07/16/24 12:30 Dose: 1 tab Documented By: CORNELIUS Sodium Chloride (0.9 % Sodium Chloride Flush 3 Ml Syringe) 3 ml IVFLUSH QSHIFT [facility] Last Admin: 07/16/24 08:35 Dose: 3 ml Documented By: CORNELIUS Vitamin D (Cholecalciferol (Vitamin D3) 25 Mcg Tablet) 25 mcg PO DAILY [facility] Labs 07/15/24 05:35 07/15/24 05:35 Assessment and Plan (1) Closed fracture of right hip: Status: Acute Plan This is a 78-year-old female with medical history significant for coronary artery disease, hypertension, depression, chronic renal failure, non-tuberculous mycobacterial lung disease and anemia here with fall resulting in right proximal femur fracture Right proximal femur fracture d/t fall s/pIM nailing 07/13 pain control with Dilaudid, oxycodone awaiting bed for STR lovenox for dvt ppx x 6 weeks bowel regimen Iron deficiency anemia, watch for further drop post surgery s/p 1u blood transfusion with good effect CKD, stable DVT: SC Lovenox CODE STATUS: Full code requires ongoing inpatient stay for management of right proximal femur fracture, pain control, post-operative care and pain control Dispo: to short term rehab, pending insurance authorization Quality Stroke Does the patient have a stroke diagnosis?: No VTE Prior VTE?: No VTE Risk Level:: Medical - moderate - high VTE Device Contraindication: N/A - Device Ordered VTE Drug Contraindication: N/A - Med Ordered
[2024-07-16 15:27] VITALS: BP 107/55; PULSE 87; RESP 18; TEMP 36.7; O2SAT 97
[2024-07-16 19:45] VITALS: BP 107/55; PULSE 83; RESP 16; TEMP 36.6; O2SAT 96
[2024-07-16] MEDS: Mirtazapine 7.5 MG TABLET PO (20:21)
[2024-07-16] MEDS: Donepezil HCl 5 MG TABLET PO (20:21)
[2024-07-16] MEDS: Enoxaparin Sodium 40 MG/0.4 ML SYRINGE SUBCUT (22:53)
--- NOTE | 2024-07-17 00:39 | PC.NURSE ---
Patient set off bed alarm trying to get out of bed to the commode. With stand by assist patient was able to transfer from the bed to the commode. Voided 300ml clear yellow urine. Patient needed minimal assistance to transfer back to bed. Patient was reminded to use call hinds, educated on the importance of waiting for assistance getting out of bed.
[2024-07-17 03:14] VITALS: BP 142/65; PULSE 80; RESP 16; TEMP 36.8; O2SAT 96
[2024-07-17] MEDS: oxyCODONE HCl Immed Release 5 MG TABLET PO ×2 (04:07→10:22)
[2024-07-17 07:45] VITALS: BP 123/61; PULSE 81; RESP 12; TEMP 36.6; O2SAT 94
--- NOTE | 2024-07-17 08:05 | HO.POSTANES ---
Post Anesthesia Evaluation Post Anesthesia Evaluation Date of Service: 07/17/24 Vital Signs: Vital Signs Temp Pulse Resp BP Pulse Ox O2 Del Method 07/17/24 07:45 97.9 F 81 12 123/61 94 Room Air 07/17/24 03:14 98.2 F 80 16 142/65 H 96 Room Air Anesthesia: General LMA Mental Status: Awake Pain Control: Satisfactory Nausea/Vomiting: None Hydration: Adequate Anesthesia-Related Issues: No Anes. Related Issues
[2024-07-17] MEDS: Cholecalciferol (Vitamin D3) 25 MCG TABLET PO (09:40)
[2024-07-17] MEDS: 0.9 % Sodium Chloride Flush 3 ML SYRINGE IVFLUSH (09:40)
[2024-07-17] MEDS: Ferrous Sulfate 324 MG TABLET.DR PO (09:40)
[2024-07-17] MEDS: Sennosides/Docusate Sodium TABLET 1 TAB PO (09:40)
[2024-07-17] MEDS: Cyanocobalamin (Vitamin B-12) 500 MCG TABLET PO (09:40)
--- NOTE | 2024-07-17 09:52 | HO.PM.IMPN ---
Subjective Subjective Date of Service: 07/17/24 Interval History: seen and examined this morning follow up POD #2 s/p right IM nail sitting up, eating breakfast - has some hip pain Review of Systems Review of Systems: Yes all other systems are reviewed and are negative Constitutional Constitutional: Denies chills and Denies fever(s) Cardiovascular Cardiovascular: Denies chest pain and Denies palpitations Endocrine Endocrine: Denies palpitations Physical Exam Vital Signs: Vital Signs: Last Vital Signs Temp 97.9 F 07/17/24 07:45 Pulse 81 07/17/24 07:45 Resp 12 07/17/24 07:45 BP 123/61 07/17/24 07:45 Pulse Ox 94 07/17/24 07:45 O2 Del Method Room Air 07/17/24 07:45 O2 Flow Rate 2 07/14/24 07:06 BMI result Body Mass Index 19.5 Objective Data Active Medications Acetaminophen (Acetaminophen 325 Mg Tablet) 650 mg PO Q6H PRN PRN Reason: Pain, Mild 1-3,fever,headache Last Admin: 07/14/24 11:48 Dose: 650 mg Documented By: ANAND Al Hydroxide/Mg Hydroxide (Magnesium Hydrox/Alum Hydrox 30 Ml Oral.Susp) 30 ml PO Q4H PRN PRN Reason: Heartburn Calcium Carbonate (Calcium Carbonate 750 Mg Tab.Chew) 750 mg PO Q4H PRN PRN Reason: Heartburn Cyanocobalamin (Cyanocobalamin (Vitamin B-12) 500 Mcg Tablet) 500 mcg PO DAILY [facility] Last Admin: 07/17/24 09:40 Dose: 500 mcg Documented By: LINN Donepezil HCl (Donepezil Hcl 5 Mg Tablet) 5 mg PO BEDTIME [facility] Last Admin: 07/16/24 20:21 Dose: 5 mg Documented By: ONI Enoxaparin Sodium (Enoxaparin Sodium 40 Mg/0.4 Ml Syringe) 40 mg SUBCUT Q24H [facility] Last Admin: 07/16/24 22:53 Dose: 40 mg Documented By: ONI Ferrous Sulfate (Ferrous Sulfate 324 Mg Tablet.) 324 mg PO DAILY [facility] Last Admin: 07/17/24 09:40 Dose: 324 mg Documented By: LINN Hydromorphone HCl (Hydromorphone Hcl 1 Mg/Ml Syringe) 0.5 mg IVPUSH Q4H PRN; Protocol PRN Reason: Pain, Severe (Pain Scale 7-10) Last Admin: 07/15/24 01:54 Dose: 0.5 mg Documented By: SOFI Magnesium Hydroxide (Milk Of Magnesia 30 Ml Oral.Susp) 30 ml PO DAILY PRN PRN Reason: Constipation Melatonin (Melatonin 3 Mg Tablet) 6 mg PO BEDTIME PRN PRN Reason: Insomnia Mirtazapine (Mirtazapine 7.5 Mg Tablet) 7.5 mg PO BEDTIME [facility] Last Admin: 07/16/24 20:21 Dose: 7.5 mg Documented By: ONI Omeprazole (Omeprazole 40 Mg Capsule.Dr) 40 mg PO BID PRN PRN Reason: acid reflux/heartburn Ondansetron HCl (Ondansetron Hcl 4 Mg/2 Ml Vial) 4 mg IVPUSH Q8H PRN PRN Reason: Nausea and Vomiting Oxycodone HCl (Oxycodone Hcl Immed Release 5 Mg Tablet) 5 mg PO Q6H PRN PRN Reason: Pain, Moderate(Pain Scale 4-6) Last Admin: 07/17/24 04:07 Dose: 5 mg Documented By: SARAH Senna/Docusate Sodium (Sennosides/Docusate Sodium Tablet) 1 tab PO BID [facility] Last Admin: 07/17/24 09:40 Dose: 1 tab Documented By: LINN Sodium Chloride (0.9 % Sodium Chloride Flush 3 Ml Syringe) 3 ml IVFLUSH QSHIFT [facility] Last Admin: 07/17/24 09:40 Dose: 3 ml Documented By: LINN Vitamin D (Cholecalciferol (Vitamin D3) 25 Mcg Tablet) 25 mcg PO DAILY [facility] Last Admin: 07/17/24 09:40 Dose: 25 mcg Documented By: LINN Labs 07/15/24 05:35 07/15/24 05:35 Assessment and Plan (1) Closed fracture of right hip: Status: Acute Plan 78-year-old female with medical history significant for coronary artery disease, hypertension, depression, chronic renal failure, non-tuberculous mycobacterial lung disease and anemia here with fall resulting in right proximal femur fracture Right proximal femur fracture d/t fall s/p IM nailing 07/13 pain control with Dilaudid, oxycodone awaiting bed for STR lovenox for dvt ppx x 6 weeks bowel regimen Iron deficiency anemia, watch for further drop post surgery s/p 1u blood transfusion with good effect CKD, stable DVT: SC Lovenox CODE STATUS: Full code Dispo: to short term rehab, pending insurance authorization Quality Stroke Does the patient have a stroke diagnosis?: No VTE Prior VTE?: No VTE Risk Level:: Medical - moderate - high VTE Device Contraindication: N/A - Device Ordered VTE Drug Contraindication: N/A - Med Ordered
--- NOTE | 2024-07-17 12:23 | P.DS_ITS ---
DS: Providers Provider Date of Service: 07/17/24 Date of admission: 07/12/24 23:55 Date of discharge: 07/17/24 Primary care physician: Jefferson Sosa MD Consults: 07/13/24 07:30 Consult to Orthopedics Routine Consulting Provider: [facility] Reason for consultation: right femur fracture Has provider been notified: No DS: Diagnosis Discharge Diagnosis (1) Closed fracture of right hip: Status: Acute DS: Summary Hospital Course Hospital Course: admission hpi Chief Complaint: Fall earlier today with resultant right hip pain Patient is a 78-year-old female with medical history significant for coronary artery disease, hypertension, depression, chronic renal failure, non-tuberculous mycobacterial lung disease and anemia who presents to the emergency room from her residence complaining of right hip pain following a fall. She reports that she lost her balance while walking to the refrigerator and fell landing on her right hip. She developed severe pain and was unable to ambulate thereafter. She denies any head strike or associated chest pain, dizziness or loss of consciousness. It is unclear what time she fell or how long she was down. A p percy x-ray of the right hip done when she arrived to the emergency room showed a slightly displaced fracture of the right proximal femur involving the lesser trochanter and subtrochanteric region. Blood work done revealed anemia with a hemoglobin of 8.600 hematocrit 26.6, mild leukocytosis 11.8 K, mild renal insufficiency with a BUN of 20 and a creatinine of 0.84 and a mildly elevated blood sugar at 161. Assessment of closed right proximal femoral fracture was made and admission requested. The case was discussed with the orthopedic surgeon operations analyst who recommended making the patient NPO in anticipation for surgery this morning. Of note patient she has no known cardiopulmonary issues. She ambulates using a cane and has good METs. hospital course: Patient presented with fall resulting in right distal femur fracture, thought fall was unwitnessed, she denied syncope or loc. She underwent a right IMN on 07/13 and is doing well post operatively, however needed transfusion of 2 units given underlying chronic anemia. H+H stable at 9.1/27.8, from 6.8/21.4 yesterday prior to transfusion. pt is feeling well, moderate pain with movement, no pain at rest. feels ready to go to [facility]. PT is recommending short term rehab. Time Attestation Discharge Coordination Time (in mins): 36 Quality: Safe Use of Opioids Does Pt have an Active Cancer Diagnosis on the Problem List?: No Quality: Stroke Does the patient have a stroke diagnosis?: No Physical Exam Vital Signs: Vital Signs: Last Vital Signs Temp 97.9 F 07/17/24 07:45 Pulse 81 07/17/24 07:45 Resp 12 07/17/24 07:45 BP 123/61 07/17/24 07:45 Pulse Ox 94 07/17/24 07:45 O2 Del Method Room Air 07/17/24 07:45 O2 Flow Rate 2 07/14/24 07:06 BMI result Body Mass Index 19.5 Appearing in no acute distress head is normocephalic atraumatic eyes pupils are PERRLA sclera is anicteric mouth throat mucous membranes are intact and moist neck is supple no lymphadenopathy, no JVD noted lung sounds are clear to auscultation heart regular rate rhythm, clear S1, S2 positive bowel sounds, abdomen is soft, nontender neuro patient is alert x3, no focal deficits DS: Data Data Completed and Pending Completed studies during hospitalization [Text1]: Procedures Excision of Right Lobe Liver, Percutaneous Approach, Diagnostic (07/05/21) Discharge Plan Discharge Anticipated Discharge Date/Time: 07/17/24 12:22 Patient Disposition: Xfer SNF Discharge Diagnosis: Fall, right femur fracture Referrals: Florin Ivy PA [Physician Hearing Aid Mechanic] - 2 Weeks (07/26/24 13:15 [facility] Florin Ivy PA) Jefferson Sosa MD [Primary Care Provider] - 1 Week Discharge Medications: New oxycodone 5 mg Tablet 5 mg PO Q6H PRN (Reason: Pain, Moderate(Pain Scale 4-6)) Qty: 20 0RF Rx Instructions: Partial Fill upon patient request. enoxaparin 40 mg/0.4 mL Syringe 40 mg subcut Q24H Qty: 40 0RF acetaminophen 325 mg Tablet 650 mg PO Q6H PRN (Reason: Pain, Mild 1-3,Fever,Headache) Qty: 60 0RF naloxone 0.4 mg/mL Solution 0.04 mg IVPUSH Q5M PRN (Reason: Excessive sedation or RR < 8) Qty: 10 0RF melatonin 3 mg Tablet 6 mg PO BEDTIME PRN (Reason: Insomnia) Qty: 30 0RF magnesium hydroxide [Milk of Magnesia] 400 mg/5 mL Suspension 30 ml PO DAILY PRN (Reason: Constipation) Qty: 30 0RF docusate sodium [Colace] 100 mg capsule 100 mg PO BID Qty: 60 0RF Continued cyanocobalamin (vitamin B-12) 500 mcg tablet 1 tab DAILY cholecalciferol (vitamin D3) 25 mcg (1,000 unit) tablet 1 tab PO DAILY cetirizine 10 mg tablet 1 tab PO DAILY PRN (Reason: Allergy Symptoms) ferrous sulfate 325 mg (65 mg iron) tablet 325 mg PO DAILY mirtazapine 7.5 mg tablet 7.5 mg PO BEDTIME famotidine 40 mg tablet 40 mg PO BEDTIME PRN (Reason: acid reflux/heartburn) omeprazole 40 mg capsule,delayed release(DR/EC) 40 mg PO BID PRN (Reason: acid reflux/heartburn) donepezil 5 mg tablet 5 mg PO BEDTIME Discharge Orders: Discharge Order (Routine); Ordered 07/17/24 Ordered By: Shazia Schuler Diet: Advance to usual diet Activity on Discharge: As tolerated Stand Alone Forms: Patient Portal Discharge page Print Language: Palauan Care Plan Goals: recovery from hip fracture due to fall Health Concerns: hip fracture fall anemia Plan of Treatment: to short term rehab weight bearing as koki DVT prophylaxis with lovenox for 6 weeks from date of surgery follow up with orthopedic surgery in two weeks Oxycodone and tylenol for pain control monitor H/H periodically Assessment: see above
--- NOTE | 2024-07-17 12:43 | MHC.CM.PN ---
Addendum entered by Linda Young RN 07/17/24 12:45: IMM delivered. Original Note: Per hospitalist, patient medically cleared for dc to [facility] has obtained auth. S transport scheduled for 2pm. GLASS SELECTOR, RN, patient and son aware.
--- NOTE | 2024-07-18 08:51 | P.CDIM_ITS ---
PROVIDER RESPONSE TEXT: To clarify, the appropriate diagnosis supported by the clinical indicators: Iron deficiency anemia due to chronic blood loss QUERY TEXT: PHYSICIAN'S DOCUMENTATION REQUEST Date of Query: 07/17/2024 11:34 AM EDT Patient Name: Crystal Avila I Admit Date: 07/13/2024 Dear Shazia Schuler CORONER TECHNICIAN, A review of the medical record indicates additional documentation may be needed. Please review below and update the documentation accordingly. Clinical Indicators: Progress notes within the written Plan - Iron deficiency anemia s/p 2 units PRBC H/H - 6.8/21.4 Post transfusions - 9.1/27.8 BP 96/47 L S/P right hip IM nail Based on the above, could you clarify which of the following is the most likely type of anemia you ar e evaluating, treating, and/or monitoring? Iron deficiency anemia due to chronic blood loss Iron deficiency anemia due to acute on chronic blood loss Other specified Other (explain) Clinically unable to determine (explain) Thank you, Daniela Blevins, CCS, CDIS Use of terms such as suspected, likely, concern for, or probable (associated with a specific diagnosi s that is being evaluated, monitored, or treated as if it exists) are acceptable and can be coded in the inpatient se tting, when documented at the time of discharge. Please use your independent medical judgment in providing your response. THIS QUERY IS PART OF THE PERMANENT MEDICAL RECORD
--- NOTE | 2024-07-23 16:44 | W.PM.OPN ---
Operative Note Operative Note Date of Service: 07/13/24 Narrative: Date of Service: 07/13/24 Pre-op diagnosis: Right hip fracture Post-op diagnosis: same Procedure: Right hip IMN Implants: Willi [id number] 125 deg imn with 95mm hip screw and 42.5 distal interlock Surgeon: Deo Oakes MD Anesthesia: GLMA and local Was an Holiday Detector Operator used for this Procedure?: No Estimated blood loss (mL): 150 IV fluids (mL): 750 Pathology: none sent Condition: stable Disposition: PACU Procedure in detail: Patient was brought to the operating room and prepped and draped in standard sterile fashion. Time-out was called to identify proper site procedure proper surgeon and IV antibiotics per weight were administered. She was positioned on the fracture table and a traction and slight internal rotation were performed and biplanar fluoroscopy confirmed initial fracture reduction. I then made a stab incision proximal to the greater trochanter in using a guidewire made a entry point just lateral to the tip of the greater trochanter and placed a guidewire into the femoral metadiaphysis. I then over-reamed with 15 mm Reamer placed my ball-tip guidewire down distally in the femur and measured my length. I selected a [id number] 125 deg nail and reamed up to a 13. I then inserted the nail. I then turned my attention to the hip screw where I used a guidewire and a tip apex distance of less than 1.5 measured a 95mm hip screw. I then pre drilled and placed a hip screw using biplanar fluoroscopy. Once I was satisfied with the position of the hip screw I turned my attention to the distal aspect of the nail. Using perfect nisqually technique I placed 1 static distal interlocking screw in standard AO technique. I then removed all I then placed my set screw proximally and removed all extraneous instrumentation. Final biplanar radiographs were taken. I was satisfied with the position of the hardware and the fracture reduction. I think copiously irrigated closed with absorbable sutures katalina and injected 30 mL of into the area of the incisions. Traction was let down patient was placed in sterile dressing awakened from anesthesia brought to recovery room stable condition there were no known complications.
== END 2024-07-17 14:34 | disposition skilled nursing facility (03) | DRG 482 ==
LOC: HO.ED 23:27 → HO.EDOVER 07-13 00:45 → HO.S3 07-13 13:47
PROVIDERS: Internal Medicine; Orthopaedic Surgery; Physician Assistant; Admitting Provider Internal Medicine; Emergency Provider Emergency Medicine; PCP Internal Medicine; Visit Provider Nurse Practitioner Acute Care
PROC: 0QS636Z Reposition Right Upper Femur with Intramedullary Internal Fixation Device, Percutaneous Approach (ICD-10-PCS; principal; 2024-07-13 15:30)
DX: S72.141A Displaced intertrochanteric fracture of right femur, initial encounter for closed fracture (principal); W19.XXXA Unspecified fall, initial encounter; N18.9 Chronic kidney disease, unspecified; D50.0 Iron deficiency anemia secondary to blood loss (chronic); Z79.899 Other long term (current) drug therapy
CPT/HCPCS: 36415; 70450; 71045; 72125; 73502; 80048; 82550; 82947; 83735; 84484; 85014; 85018; 85025; 85027; 85610; 86850; 86900; 86901; 86923; 93005; 97162; 99285; C1713; J0690; J1100; J1171; J1650; J2003; J2371; J2405; J2704; J2795; J3010; P9016

== ENCOUNTER → 2024-07-12 18:21 | Outpatient (BNV) | payer OTHER, SELFPAY | PROVIDERS: Emergency Provider Emergency Medicine; PCP Internal Medicine; Visit Provider Radiology Diagnostic Radiology | DX: J18.9 Pneumonia, unspecified organism (principal); S72.141A Displaced intertrochanteric fracture of right femur, initial encounter for closed fracture; G31.9 Degenerative disease of nervous system, unspecified; G89.11 Acute pain due to trauma; W19.XXXA Unspecified fall, initial encounter | CPT/HCPCS: 70450; 71045; 72125; 73502 ==

== ENCOUNTER → 2024-07-12 18:21 | Outpatient (BNV) | payer OTHER, SELFPAY | PROVIDERS: Admitting Provider Internal Medicine; Emergency Provider Emergency Medicine; PCP Internal Medicine; Visit Provider Internal Medicine Cardiovascular Disease | DX: I45.10 Unspecified right bundle-branch block (principal); R94.31 Abnormal electrocardiogram [ECG] [EKG]; W19.XXXA Unspecified fall, initial encounter | CPT/HCPCS: 93010 ==

== ENCOUNTER → 2024-07-12 23:55 | Outpatient (BNV) | payer OTHER, SELFPAY | PROVIDERS: Admitting Provider Internal Medicine; Emergency Provider Emergency Medicine; PCP Internal Medicine | DX: S72.001A Fracture of unspecified part of neck of right femur, initial encounter for closed fracture (principal) | CPT/HCPCS: 27245; 99222 ==

== ENCOUNTER → 2024-07-12 23:55 | Outpatient (BNV) | payer OTHER, SELFPAY | PROVIDERS: Admitting Provider Internal Medicine; Emergency Provider Emergency Medicine; PCP Internal Medicine; Visit Provider Internal Medicine | DX: S72.001A Fracture of unspecified part of neck of right femur, initial encounter for closed fracture (principal) | CPT/HCPCS: 99223; 99232; 99233; 99239 ==

== ENCOUNTER 2024-07-26 08:36 | Outpatient (REF) | payer OTHER, SELFPAY | END 2024-07-26 08:37 | disposition home or self-care (01) | LOC: HO.HOSX 08:36 | DX: Z13.89 Encounter for screening for other disorder (principal) ==

== ENCOUNTER 2024-07-28 08:27 | Outpatient (REF) | payer OTHER, SELFPAY ==
--- NOTE | ~2024-07-28 | XR_ITS ---
EXAMINATION: XR HIP, RIGHT CLINICAL INFORMATION: M25.551 - Pain in right hip COMPARISON: July 12, 2024. TECHNIQUE: Two views of the right hip. FINDINGS: Intramedullary ruel placed throughout the diaphysis of the femur and anchored proximally with a femoral head and neck screw and a distal small screw. Intertrochanteric comminuted fracture with displaced fragments involving the lesser trochanter and the proximal metaphysis diaphysis junction. Vascular calcifications. The left hip is intact. The bony pelvis is grossly intact. Skin katalina in the upper and lower aspect of the right hip. XR/XR hip RT min 2V IMPRESSION: Status post open internal fixation of an intertrochanteric comminuted fracture, right femur. Overall satisfactory. Atherosclerosis disease, peripheral. Electronically signed by: Timoteo Keys MD 07/31/2024 09:00 AM EDT
== END 2024-07-28 08:28 | disposition home or self-care (01) ==
LOC: HO.HOSX 08:27
DX: M25.551 Pain in right hip (principal); S72.001A Fracture of unspecified part of neck of right femur, initial encounter for closed fracture
CPT/HCPCS: 73502; 99212

== ENCOUNTER 2024-07-28 11:21 | Outpatient (AMB) | payer OTHER, SELFPAY ==
--- NOTE | 2024-07-28 11:44 | MHC.OFFVIS ---
Intake Visit Reasons: PO 2 WK right hip IM nail, DOS 07/13/2024 Intake Note: Crystal is a 79 year old female who presents today for her post operative visit s/p Right hip IMN DOS: 07/13/24 w/ Dr Deo Oakes. Patient presented today with a gi technician. [facility] Prepress Proofer Required: No Allergies No Known Allergies [No Known Allergies*] Allergy (Verified 07/28/24 11:48) HPI HPI PO 2 WK right hip IM nail, DOS 07/13/2024: Details: Crystal is a 79 year old female who presents today for her post operative visit s/p Right hip IMN DOS: 07/13/24 w/ Dr Deo Oakes. Patient presented today with a gi technician. She is currently [facility] Patient reports that she is still having pain, but it was improving every day and she is able to ambulate with a walker. No other acute complaints or concerns at this time. [facility] Medical History (Updated 07/25/24 @ 00:01 by Background Daemon) ELIF (iron deficiency anemia) CKD (chronic kidney disease) Sore throat 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 Hemoptysis Lymphadenopathy Injury of right knee Elevated blood sugar Chronic renal failure Renal cyst Vitamin deficiency, unspecified Allergic rhinitis Depressive disorder Osteoarthritis Obesity HTN (hypertension) Anemia Surgical History (Updated 07/25/24 @ 00:01 by Background Daemon) History of esophagogastroduodenoscopy (EGD) (~2017) History of section History of liver biopsy (~2021) Family History Father Cancer Mother Cancer Paternal Grandmother Cancer Social History Household Members: Unknown / Unable to assess Housing: Apartment Are you a primary career professional to a significant other at home: No Do you presently have visiting nurse or other home services: Yes Alcohol intake: never Patient Tobacco Use Status: Never used Tobacco service: No Current occupational status: retired and disabled Review of Systems Const All systems reviewed & are unremarkable except as noted in HPI and below Physical Exam Vital Signs: Last Vital Signs Temp 98.1 F 07/15/24 07:23 Pulse 89 07/15/24 07:23 Resp 16 07/15/24 07:23 BP 101/55 L 07/15/24 07:23 Pulse Ox 94 07/15/24 07:23 O2 Del Method Room Air 07/15/24 07:23 O2 Flow Rate 2 07/14/24 07:06 BMI result Body Mass Index 19.5 Extrem Other: Dressing on right hip clean, dry, intact Dressings removed in the office today No evidence of surrounding erythema, ecchymosis No evidence of infection Patient is able to flex and extend the digits of the left foot without difficulty Patient was able to stand and ambulate with a walker Compartments soft, nontender Distal sensation intact Capillary refill brisk Results Reviewed Results Reviewed: X-rays obtained in the office today and independently reviewed by me, Florin Ivy PA-C, demonstrate subtrochanteric fracture of the right hip with all orthopedic hardware in place and in satisfactory clinical alignment. Assessment & Plan Assessment & Plan (1) Closed fracture of right hip: Code(s): S72.001A - Fracture of unspecified part of neck of right femur, initial encounter for closed fracture Category: Medical Qualifiers: Encounter type: initial encounter Qualified Code(s): S72.001A - Fracture of unspecified part of neck of right femur, initial encounter for closed fracture Plan 1. Subtrochanteric fracture of right hip status post IM nail DOS 07/13/2024 Patient appears to be recovering well postoperatively Patient was educated about the typical recovery course Rosaline removed Patient is educated she can begin to shower once again Patient is educated she should continue working with physical therapy on gait training, range of motion, strengthening of the right hip May continue weight-bearing as tolerated Patient will follow-up 4 weeks with repeat x-rays for reassessment, sooner with any acute concerns Orders: Orders XR hip RT min 2V Today M25.551 - Pain in right hip Coding Level of Care Code Global (22586) Diagnoses Closed fracture of right hip, initial encounter S72.001A Encounter type: initial encounter
== END 2024-07-28 12:28 | disposition home or self-care (01) ==
LOC: HO.HOS 11:21
PROVIDERS: PCP Internal Medicine
DX: S72.001A Fracture of unspecified part of neck of right femur, initial encounter for closed fracture (principal)
CPT/HCPCS: 99024

== ENCOUNTER → 2024-07-28 11:21 | Outpatient (BNV) | payer OTHER, SELFPAY | PROVIDERS: Visit Provider Radiology Diagnostic Radiology | DX: I70.201 Unspecified atherosclerosis of native arteries of extremities, right leg (principal) | CPT/HCPCS: 73502 ==

== ENCOUNTER 2024-08-18 14:37 | Outpatient (REF) | payer OTHER, SELFPAY ==
--- OUTSIDE RECORDS SUMMARY | 2024-08-18 14:54 | XMS_ITS | Encounter Summary ---
Author Organization [employer] Address [address] [facility] 7t [place] [address] Care Team Providers Care Ship Self Defense System Mk1 Operator Name Role Phone Jefferson Sosa MD Primary Care Provider [phone] Encounter Details Date Type Department Care Team (Late st Contact Info) Description 07/23/2023 Orders Only [facility] CH[facility] MED & PEDS [address] [place], [place] [phone] Jefferson Sosa MD [address] [place] [address] Memory disturbance (Primary Dx) Social History Tobacco Use Types Packs/Day Years Used Date Smoking Tobacco: Never Smokeless Tobacco: Never Alcohol Use Standard Drinks/Week Comments Never 0 (1 standard drink = 0.6 oz pur e alcohol) Housing Stability Answer Date Recorded What is your housing situation today? I have carlo dang 02/23/[address] you li ve. Do you have problems with any of the following? None of the above 02/23/2023 Food Insecurity Answer Date Recorded Within the past 12 months, y ou worried that your food would run out before you got money to buy more: Sometimes True 2023 Within the past 12 months,th e food you bought just didn't last and you didn't have enough money to get more: Sometimes True 05/27/2023 Transportation Answer Date Recorded In the past 12 months, has l ack of transportation kept you from medical appts, meetings, work or from getting things needed for daily living? No 02/23/2023 Utilities Answer Date Recorded In the past 12 months, has t he electric, gas, oil or water company threatened to shut off services in your home? No 02/23/2023 Comments Unknown Sex and Gender Information Value Date Recorded Sex Assigned at Female 03/09/2022 10:20 AM EDT Legal Sex Female 10:20 AM EDT Gender Identity Female 03/09/2022 10:20 AM EDT Sexual Orientation Straight 03/09/2022 10 :20 AM EDT documented as of this encounter Plan of Treatment Not on file documented as of this encounter Procedures Procedure Name Priority Date/Time Associated Diagnosis Comments VASC US LOWER EXTREMITY VENOUS DUPLEX BILATERAL Routine 08/19/2023 3:18 PM EDT documented in this encounter Results * VASC US Lower Extremity Venous Duplex Bilateral (08/19/2023 3:18 PM EDT) 08/19/2023 3:18 PM EDT Narrative [facility] - 08/25/2023 2:32 PM EDT ? [facility] ?[address] ?[place] [address] ? Ultrasound Report ? Signed ? Patient: Crystal Avila I ?MR# ?? : [id number] ? : 1945 ?Acct:[id number] ? Age/Sex: 78 / F ?ADM Date: 08/19/23 ? Loc: HO.US ? Attending Dr: Saad Michaels MD ? Ordering Physician: SAAD MICHAELS MD ?? Date of Service: 08/19/23 ?? Procedure(s): US venous duplex LE BI ?? Accession Number(s): [id number] ? cc: SAAD MICHAELS MD; Jefferson Sosa MD ? EXAMINATION: ? US VENOUS ULTRASOUND WITH DOPPLER LOWER EXTREMITY, BILATERAL ? CLINICAL INFORMATION: ? Bilateral lower extremity swelling and right leg pain ? COMPARISON: ? 12/08/2022 ? TECHNIQUE: ?? Ultrasound of the deep veins is performed from the hip to the calf with ?? compression sonography and color and pulse Doppler assessment. Spectral ?? analysis with color-flow imaging is performed. ? FINDINGS: ? RIGHT: ?? There is normal venous compression and respiratory variation and ?? augmented flow. The visualized common femoral vein, superficial femoral ?? vein, profunda femoral vein, popliteal vein, and the trifurcation ?? region shows no evidence of deep venous thrombosis. ?? There is a ?? lobulated Moya's cyst in the popliteal fossa measuring at least 3.1 x ?? 1.3 x 2.3 cm which appears to be extending between the gastrocnemius ?? muscles in the proximal calf ? LEFT: ?? There is normal venous compression and respiratory variation and ?? augmented flow. The visualized common femoral vein, superficial femoral ?? vein, profunda femoral vein, popliteal vein, and the trifurcation ?? region shows no evidence of deep venous thrombosis. ?? There is a simple ?? Moya's cyst in the popliteal fossa measuring 3.4 x 0.7 x 0.6 cm. ? If the patient's symptoms persist, followup ultrasound in 5 days 7 days ?? might be of value to exclude proximal propagation from a non-visualized ?? calf vein. ? US/US venous duplex LE BI ?? IMPRESSION: ?? No DVT demonstrated in the bilateral lower extremity. ? Bilateral Moya's cyst as described above ? Dictated By: ?Arnoldo Dhillon MD ? Signed By: ?<Electronically signed by Arnoldo Dhillon MD in OV> ? 08/25/23 1428 ? DD/ 1518 ? TD/TT: ? Life Insurance Sales Agent: ? Procedure Note Katelyn, Image - 08/25/2023 [place] [address] Ultrasound Report Signed Patient: Crystal Avila IMR# : [id number] : [id number]:[id number] Age/Sex: 78 / FADM Date: 08/19/23 Loc: HO.US Attending Dr: Saad Michaels MD Ordering Physician: SAAD MICHAELS MD Date of Service: 08/19/23 Procedure(s): US venous duplex LE BI Accession Number(s): [id number] cc: SAAD MICHAELS MD; Jefferson Sosa MD EXAMINATION: US VENOUS ULTRASOUND WITH DOPPLER LOWER EXTREMITY, BILATERAL CLINICAL INFORMATION: Bilateral lower extremity swelling and right leg pain COMPARISON: 12/08/2022 TECHNIQUE: Ultrasound of the deep veins is performed from the hip to the calf with compression sonography and color and pulse Doppler assessment. Spectral analysis with color-flow imaging is performed. FINDINGS: RIGHT: There is normal venous compression and respiratory variation and augmented flow. The visualized common femoral vein, superficial femoral vein, profunda femoral vein, popliteal vein, and the trifurcation region shows no evidence of deep venous thrombosis. There is a lobulated Moya's cyst in the popliteal fossa measuring at least 3.1 x 1.3 x 2.3 cm which appears to be extending between the gastrocnemius muscles in the proximal calf LEFT: There is normal venous compression and respiratory variation and augmented flow. The visualized common femoral vein, superficial femoral vein, profunda femoral vein, popliteal vein, and the trifurcation region shows no evidence of deep venous thrombosis. There is a simple Moya's cyst in the popliteal fossa measuring 3.4 x 0.7 x 0.6 cm. If the patient's symptoms persist, followup ultrasound in 5 days 7 days might be of value to exclude proximal propagation from a non-visualized calf vein. US/US venous duplex LE BI IMPRESSION: No DVT demonstrated in the bilateral lower extremity. Bilateral Moya's cyst as described above Dictated By: Arnoldo Dhillon MD Signed By: <Electronically signed by Arnoldo Dhillon MD in OV> 08/25/23 1428 DD/ 1518 TD/TT: Life Insurance Sales Agent: us Saad Micheals MD CV VASCULAR PROCEDURES Final Res ult [facility] [address] [place] [address] documented in this encounter Visit Diagnoses Diagnosis Memory disturbance- Primary Memory loss documented in this encounter Care Teams Ship Self Defense System Mk1 Operator Relationship Specialty Start Date End Date Jefferson Sosa MD [address] [place] [address] PCP - General Internal Medicine 05/17/13 documented as of this encounter
--- OUTSIDE RECORDS SUMMARY | 2024-08-18 14:54 | XMS_ITS | Encounter Summary ---
Author Organization [employer] Address [address] [facility] 7t [place] [address] Care Team Providers Care Hvac Tech Name Role Phone Jefferson Sosa MD Primary Care Provider Encounter Details Date Type Department Care Team (Late st Contact Info) Description 08/18/2024 1:30 PM EDT Office Visit [facility] CH[facility] MED & PEDS [address] [place], [place] [phone] Jefferson Sosa MD [address] [place] [address] Microcytic anemia (Primary Dx); Hypoalbuminemia Social History Tobacco Use Types Packs/Day Years Used Date Smoking Tobacco: Never Smokeless Tobacco: Never Alcohol Use Standard Drinks/Week Comments Never 0 (1 standard drink = 0.6 oz pur e alcohol) Depression Answer Date Recorded Patient Health Questionnaire-9 Score 0 10/01/2023 Patient Health Questionnaire-9 Score 0 10/01/2023 Last PHQ-9: Questionnaire Data Not on file 0 10/01/2023 Housing Stability Answer Date Recorded What is [...] off services in your home? No 02/23/2023 Depression Answer Date Recorded Patient Health Questionnaire-2 Score 0 10/01/2023 Comments Unknown Sex and Gender Information Value Date Recorded Sex Assigned at Female 03/09/2022 10:20 AM EDT Legal Sex Female 10:20 AM EDT Gender Identity Female 03/09/2022 10:20 AM EDT Sexual Orientation Straight 03/09/2022 10 :20 AM EDT documented as of this encounter Last Filed Vital Signs Vital Sign Reading Time Taken Comments Blood Pressure 133/67 08/18/2024 1:47 PM EDT Pulse 84 08/18/2024 1:47 PM EDT Temperature 36.6 ??C (97.8 ??F) 08/18/2024 1:47 PM ED T Respiratory Rate 20 08/18/2024 1:47 PM EDT Oxygen Saturation 96% 08/18/2024 1:47 PM EDT Inhaled Oxygen Concentration - - Weight 44.5 kg (98 lb) 08/18/2024 1:47 PM EDT Height 152.4 cm (5') 08/18/2024 1:47 PM EDT Body Mass Index 19.14 08/18/2024 1:47 PM EDT documented in this encounter Plan of Treatment Scheduled Orders Name Type Priority Associated Diagnoses Orde r Schedule Comprehensive Metabolic Panel Lab Routine Hypoalbuminemia Expected: 08/18/2024 (Approximate), Expires: 08/18/2025 CBC auto differential Lab Routine Microcytic anemia Expected: 08/18/2024 (Approximate), Expires: 08/18/2025 documented as of this encounter Visit Diagnoses Diagnosis Microcytic anemia- Primary Unspecified iron deficiency anemia Hypoalbuminemia Other disorders of plasma protein metabolism documented in this encounter Additional Health Concerns Assessment Noted Time PHQ-9 Depression Total Score: 0 10/01/19 24 3:56 PM EDT documented as of this encounter Care Teams Hvac Tech Relationship Specialty Start Date End Date Jefferson Sosa MD [address] [place] [address] PCP - General Internal Medicine 05/17/13 documented as of this encounter
--- OUTSIDE RECORDS SUMMARY | 2024-08-18 14:55 | XMS_ITS | Encounter Summary ---
Author Organization [employer] Address [address] [facility] [place] [address] Care Team Providers Care Forward Air Controller/Air Officer Name Role Phone Jefferson Sosa MD Primary Care Provider Encounter Details Date Type Department Care Team (Late st Contact Info) Description 02/14/2024 Orders Only [facility] [address] [place] [address] Jefferson Sosa MD [address] [place] [address] Social History Tobacco Use Types Packs/Day Years [...] on file documented as of this encounter Visit Diagnoses Not on filedocumented in this encounter Additional Health Concerns Assessment Noted Time PHQ-9 Depression Total Score: 0 10/01/19 24 3:56 PM EDT documented as of this encounter Care Teams Forward Air Controller/Air Officer Relationship Specialty Start Date End Date Jefferson Sosa MD [address] [place] [address] PCP - General Internal Medicine 05/17/13 documented as of this encounter
--- OUTSIDE RECORDS SUMMARY | 2024-08-18 14:55 | XMS_ITS | Encounter Summary ---
Author Organization [employer] Address [address] [facility] [address] 7[address] [place] [address] Care Team Providers Care Bench Assembler Operator Name Role Phone Jefferson Sosa MD Primary Care Provider Reason for Visit * Reason Onset Date Comments Durable Medical Equipment 02/10/2024 Encounter Details Date Type Department Care Team (Late st Contact Info) Description 02/10/2024 Telephone [facility] MEDICINE [address] [place] [address] Jefferson Sosa MD [address] [place], [place] [phone] Durable Medical Equipment Social History Tobacco Use Types Packs/Day Years [...] AM EDT documented as of this encounter Miscellaneous Notes * Telephone Encounter - Diana Neal RN - 02/15/2024 9:30 AM EDT Rx generated through [employer] and pending PCP signature. Informed Mason of rx in process. [facility] agrees with plan. * Telephone Encounter - Sharon Pinto LPN - 02/11/2024 12:41 PM EDT Please review message below and advise . If agreed please review Dx for this request , Thank you Tc from [facility] requesting arm rest for toilet that rest on the toilet bowl. Pt would like that faxedbailey [facility]. If any questions you can contact Mason at [phone]. [facility] Fac: [phone] * Telephone Encounter - Vinayak Schuler - 02/10/2024 11:42 AM EDT Tc from [facility] requesting arm rest for toilet that rest on the toilet bowl. Pt would like that faxedto [facility]. If any questions you can contact Mason at [phone]. [facility] Fac: [phone] documented in this encounter Plan of Treatment Not on file documented as of this encounter Visit Diagnoses Not on filedocumented in this encounter Additional Health Concerns Assessment Noted Time PHQ-9 Depression Total Score: 0 10/01/19 24 3:56 PM EDT documented as of this encounter Care Teams Bench Assembler Operator Relationship Specialty Start Date End Date Jefferson Sosa MD [address] [place] [id number] PCP - General Internal Medicine 05/17/13 documented as of this encounter
--- OUTSIDE RECORDS SUMMARY | 2024-08-18 14:55 | XMS_ITS | Encounter Summary ---
Author Organization [employer] [facility] Address [address] [facility] 7t [place] [address] Care Team Providers Care Silo Worker Name Role Phone Jefferson Sosa MD Primary Care Provider Encounter Details Date Type Department Care Team (Late st Contact Info) Description 11/11/2022 Abstract [facility] MEDICINE [address] [place], [place] [phone] Jefferson Sosa MD [address] [place], [place] [phone] Social History Tobacco Use Types Packs/Day Years Used Date Smoking Tobacco: Never Smokeless Tobacco: Never Alcohol Use Standard Drinks/Week Comments Never 0 (1 standard drink = 0.6 oz pur e alcohol) Comments Unknown Sex and Gender Information Value Date Recorded Sex Assigned at Female 03/09/2022 10:20 AM EDT Legal Sex Female 10:20 AM EDT Gender Identity Female 03/09/2022 10:20 AM EDT Sexual Orientation Straight 03/09/2022 10 :20 AM EDT documented as of this encounter Plan of Treatment Not on file documented as of this encounter Visit Diagnoses Not on filedocumented in this encounter Care Teams Silo Worker Relationship Specialty Start Date End Date Jefferson Sosa MD [address] [place] [address] PCP - General Internal Medicine 05/17/13 documented as of this encounter
--- OUTSIDE RECORDS SUMMARY | 2024-08-18 14:55 | XMS_ITS | Encounter Summary ---
Author Organization [employer] Address [address] [facility] 7t [place] [address] Care Team Providers Care Irrigator Valve Pipe Name Role Phone Jefferson Sosa MD Primary Care Provider Reason for Visit * Reason Onset Date Comments Order for VNA Services 01/28/2024 Encounter Details Date Type Department Care Team ([facility] st Contact Info) Description 01/28/2024 Telephone [facility] MEDICINE [address] [place] [address] Jefferson Sosa MD [address] [place] [address] Order for VNA Services Social History Tobacco Use Types Packs/Day Years [...] encounter Miscellaneous Notes * Telephone Encounter - Ximena Ramey - 01/28/2024 8:12 AM EDT Tc from [facility] with [facility] requesting a New order for VNA Services due to pt getting a biopsy done for some masses and is requiring services. documented in this encounter Plan of Treatment Not on file documented as of this encounter Visit Diagnoses Not on filedocumented in this encounter Additional Health Concerns Assessment Noted Time PHQ-9 Depression Total Score: 0 10/01/19 3:56 PM EDT documented as of this encounter Care Teams Irrigator Valve Pipe Relationship Specialty Start Date End Date Jefferson Sosa MD [address] [place] [address] PCP - General Internal Medicine 05/17/13 documented as of this encounter
--- OUTSIDE RECORDS SUMMARY | 2024-08-18 14:55 | XMS_ITS | Encounter Summary ---
Author Organization [facility] Address [address] [facility] [address] 7[address] [place] [address] Care Team Providers Care Recovery Assistant Name Role Phone Jefferson Sosa MD Primary Care Provider Reason for Visit * Reason Onset Date Comments ER Follow-up 11/26/2023 Encounter Details Date Type Department Care Team ([facility] st Contact Info) Description 11/26/2023 Telephone [facility] MEDICINE [address] [place] [address] Jefferson Sosa MD [address] [place], [place] [phone] ER Follow-up Social History Tobacco Use Types Packs/Day Years [...] encounter Miscellaneous Notes * Telephone Encounter - Yasmin Fong RN - 11/26/2023 2:32 PM EDT Call to Crystal Schuler for triage x 2 at number on file. No answer, unable to LVM as Vm not set up. Call to yanni arango, ASSOCIATE PROFESSOR OF MUSICOLOGY not with pt, gave daughter number. No answer LVM to return callto [facility]. * Telephone Encounter - Timothy Ovalles - 11/26/2023 11:19 AM EDT Patient calling to report ED visit on : Date: 11/24 Hospital: [facility] Seen for: Feet swelling and chest pain Patient advised will forward to team nurse for follow up documented in this encounter Plan of Treatment Not on file documented as of this encounter Visit Diagnoses Not on filedocumented in this encounter Additional Health Concerns Assessment Noted Time PHQ-9 Depression Total Score: 0 10/01/19 3:56 PM EDT documented as of this encounter Care Teams Recovery Assistant Relationship Specialty Start Date End Date Jefferson Sosa MD [address] [place] [address] PCP - General Internal Medicine 05/17/13 documented as of this encounter
--- OUTSIDE RECORDS SUMMARY | 2024-08-18 14:55 | XMS_ITS | Encounter Summary ---
Author Organization [employer] [facility] Address [address] [facility] 7t [place] [address] Care Team Providers Care Sustain Engineer Name Role Phone Jefferson Sosa MD Primary Care Provider Reason for Visit * Reason Comments Med Refill Encounter Details Date Type Department Care Team (Late st Contact Info) Description 10/19/2022 Refill [facility] CHC MED & PEDS [address] [place] [address] Jefferson Sosa MD [address] [place], [place] [phone] Epigastric pain; Vitamin D deficiency Social History Tobacco Use Types Packs/Day Years [...] as of this encounter Visit Diagnoses Diagnosis Epigastric pain Abdominal pain, epigastric Vitamin D deficiency documented in this encounter Care Teams Sustain Engineer Relationship Specialty Start Date End Date Jefferson Sosa MD [address] [place] [address] PCP - General Internal Medicine 05/17/13 documented as of this encounter
--- OUTSIDE RECORDS SUMMARY | 2024-08-18 14:55 | XMS_ITS | Clinical Summary ---
Author Organization [employer] [facility] Address [address] [facility] 7[address] [place] [address] Care Team Providers Care Jewelry Dipper Name Role Phone Jefferson Sosa MD Primary Care Provider Allergies No known active allergies Medications famotidine (Pepcid) 40 MG tablet Take 1 tablet by mouth in the morning. 05/05/20 23 Active cetirizine (ZyrTEC) 10 MG tabletIndicati ons:Seasonal allergic rhinitis due to other allergic trigger TAKE ONE TABLET BY MOUTH EVERY DAY NEEDED (VIAL) 28 tablet 11 12/07/19 24 Active ferrous sulfate (FeroSul) 325 (65 Fe) MG tabletIndicati ons:Other iron deficiency anemia TAKE ONE TABLET BY MOUTH EVERY OTHER DAY 15 tablet 5 05/12/19 25 Active donepezil (Aricept) 5 MG tablet TAKE ONE TABLET BY MOUTH EVERY EVENING ^1R4 30 tablet 5 05/12/19 25 Active mirtazapine (Remeron) 7.5 MG tabletIndicati ons:Depressive disorder TAKE 1 TABLET BY MOUTH EVERYDAY AT BEDTIME 30 tablet 06/30/19 25 Active cholecalcifero l (Vitamin D-3) 25 MCG (1000 UT) capsuleIndicat ions:Vitamin D deficiency TAKE ONE CAPSULE BY MOUTH EVERY DAY 28 capsule 5 07/03/19 25 Active cyanocobalamin (Vitamin B-12) 500 MCG tabletIndicati ons:Vitamin B12 deficiency TAKE ONE TABLET BY MOUTH EVERY DAY ^1R1 28 tablet 5 07/03/19 25 Active omeprazole (PriLOSEC) [address] capsule Take 1 capsule by mouth 2 times daily. Do not crush or chew. Active Enoxaparin Sodium 40 MG/0.4ML solution prefilled syringe Inject 40 mg as directed 1 (one) time each day at the same time. 07/14/19 25 025 Active acetaminophen (Tylenol) 325 MG tablet Take 2 tablets by mouth every 6 (six) hours if needed for mild pain. Active Nutritional Supplements (Ensure Active High Protein) liquidIndicati ons:Hypoalbumi nemia 1 bottle 3 times every day 237 mL 11 08/19/19 25 Active albuterol 108 (90 Base) MCG/ACT inhaler 08/03/19 19 025 Discontinued(St op taking at discharge) Cyanocobalamin 500 MCG lozenge 1 Lozenge a day 11/13/19 025 Discontinued(Me d list cleanup (will not trigger notification to Pharmacy)) fluticasone (Flonase) 50 MCG/ACT nasal spray spray 1 spray by intranasal route every day in each nostril 12/04/19 025 Discontinued(St op taking at discharge) ethambutol (Myambutol) 400 MG tablet Take 1 tablet by mouth. On Wednesday, Wednesday and Wednesday01/12/20 025 Discontinued(St op taking at discharge) Nutritional Supplements (Ensure Active High Protein) liquidIndicati ons:Hypoalbumi nemia 1 bottle 3 times every day 237 mL 11/15/19 24 025 Discontinued(Re order (will not trigger notification to Pharmacy)) omeprazole (PriLOSEC) [address] capsuleIndicat ions:Epigastri c pain TAKE ONE CAPSULE BY MOUTH EVERY DAY BEFORE MEALS ^1R1 30 capsule 11 12/01/19 24 025 Discontinued(St op taking at discharge) Active Problems Problem Noted Date Diagnosed Date Chronic GERD 08/15/2024 NSTEMI (non-ST elevated myocardial infarction) 0 08/19/2023 Metastatic non-small cell lung cancer 06/07/2023 06/07/2023 ELIF (iron deficiency anemia) 06/07/2023 Liver mass 03/26/2022 Hypoalbuminemia 09/26/2021 Carcinoma of liver 09/24/2021 Cyst of kidney, acquired 03/25/2021 Chronic renal failure 08/08/2020 Hyperglycemia 06/24/2018 Allergic rhinitis 09/17/2011 Anemia 09/17/2011 Benign essential hypertension 09/17/2011 Depressive disorder 09/17/2011 Generalized osteoarthritis 09/17/2011 Obesity 09/17/2011 Vitamin deficiency 09/17/2011 Encounters Date Type Department Care Team Description 08/18/2024 1:30 PM EDT Office Visit [facility] [address] [place] [address] Jefferson Sosa MD Microcytic anemia (Primary Dx); Hypoalbuminemia 08/18/2024 Travel 08/11/[address] [address] Perri Pinto, BobbiD 08/11/[address] [address] Jefferson Sosa MD Call Back Request 08/10/2024 Patient Outreach [address] [address] Jefferson Sosa MD Transition Of Care (Tcm) (HDF scheduled) 08/07/2024 Telephone [facility] [address] [place] [address] Jefferson Sosa MD Chart Prep 07/12/2024 Orders Only [facility] External Provider, [facility] 07/03/2024 Refill [facility] [address] [place] [address] Jefferson Sosa MD Vitamin D deficiency; Vitamin B12 deficiency 06/30/2024 Refill [facility] [address] [place] [address] Jefferson Sosa MD Depressive disorder 06/22/[address] [address] Jefferson Sosa MD Durable Medical Equipment 06/13/[address] [address] Jefferson Sosa MD Nurse Triage from Last 3 Months Immunizations Name Administration Dates Next Due Influenza High-dose Quadriva lent Preservative Free 04/29/2020 Influenza injectable quadriv alent IIV4 with preservative 07/10/2019,02/08/2017,01/24/2016,01/28 Influenza injectable quadriv alent preservative free 01/26/2022 Pfizer Covid-19 Vaccine 12+ 08/09/2020,0 07/30/2020,07/19/2020,07/09 Pneumococcal Conjugate PCV 13 03/31/2017 Pneumococcal Polysaccharide PPSV23 02/09/2022 Tdap 09/20/2014 Zoster, Recombinant 04/13/2022,02/09/2022 Zoster, live 05/09/2014 Social History Tobacco Use Types Packs/Day Years Used Date Smoking Tobacco: Never Smokeless Tobacco: Never Tobacco Cessation:Counseling Given: Not Answered Alcohol Use Standard Drinks/Week Comments Never 0 [...] Orientation Straight 03/09/2022 10 :20 AM EDT Last Filed Vital Signs Vital Sign Reading [...] Mass Index 19.14 08/18/2024 1:47 PM EDT Plan of Treatment Health Maintenance Due Date Last Done Comments Alcohol/Substance Use Screening 1957 Hepatitis C Screening 07/10/1965 Hepatitis A Vaccines (1 of 2 - Risk 2-dose series) 07/10/1966 Hepatitis B Vaccines (1 of 3 - Risk 3-dose series) 2007 RSV Patients and Patients Aged 60 years or older (1 - 1-dose 75+ series) 07/10/2022 COVID-19 Vaccine ( season) 2024 08/09/2020, 07/30/2020, 07/19/2020, Additional history exists Influenza Vaccine (#1) 2024 , 04/29/2020, 07/10/2019, Additional history exists SDOH Screening 05/27/2024 05/27/2023 DTaP/Tdap/Td Vaccines (2 - Td or Tdap) 09/20/2024 09/20/2014 Depression Screening 09/30/2024 10/01/2023, 10/01/19 Tobacco Screening 01/06/2025 01/07/2024 Lipid Panel 08/07/2025 08/07/2020 Pneumococcal Vaccine: 50+ Years Completed 02/09/2022, 03/31/2017 Zoster Vaccines Completed 04/13/2022, 1007/2021, 05/09/2014 HIB Vaccines Aged Out No longer eligi ble based on patient's age to complete this topic HPV Vaccines Aged Out No longer eligi ble based on patient's age to complete this topic IPV Vaccines Aged Out No longer eligi ble based on patient's age to complete this topic Meningococcal Vaccine Aged Out No vikash kinga eligible based on patient's age to complete this topic RSV under 20 months Aged Out No longe r eligible based on patient's age to complete this topic Rotavirus Vaccines Aged Out No longer eligible based on patient's age to complete this topic Procedures Procedure Name Priority Date/Time Associated Diagnosis Comments FL GUIDANCE IN OR Routine 07/13/2024 4:5 0 PM EST LIPID PANEL, STANDARD Routine 08/07/2020 8:22 AM EDT from Last 3 Months or Most Recently Relevant to Health Maintenance Results * FL Guidance in OR (07/13/2024 4:50 PM EST) Anatomical Region Laterality Modality X-Ray Angiograph y 07/13/2024 4:50 PM EST Narrative 07/14/2024 8:38 AM EST ? [facility] ?[address] ?[place] [address] ? Fluoroscopy Report ? Signed ? Patient: Crystal Avila I ?MR# ?? : [id number] ? : 1945 ?Acct:[id number] ? Age/Sex: 79 / F ?ADM Date: 07/12/24 ? Loc: HO.S3 ?378-1 ? Attending Dr: Dhiraj Pimentel MD ? Ordering Physician: Deo Oakes MD ?? Date of Service: 07/13/24 ?? Procedure(s): FL guidance in OR ?? Accession Number(s): [id number] ? cc: Jefferson Sosa MD; Deo Oakes MD ? EXAMINATION: ??FL GUIDANCE ONLY ? HISTORY: RIGHT IM NAIL ? COMPARISON: ?? Comparison is made with the prior examination of the right hip dated ?? 07/12/2024. ? TECHNIQUE: ?? Fluoroscopy time: 0.7 minutes. ?? Cumulative Dose: 9.80 mGy. ?? DAP: 0.164 mGym2 ?? Images: 4. ? FINDINGS: ?? Images demonstrate internal fixation of the previously noted comminuted ?? intertrochanteric fracture with a compression screw and intramedullary ?? ruel. ? FL/FL guidance in OR ?? IMPRESSION: ?? Fluoroscopy during procedure. Please see procedure report for ?? additional information. ? Electronically signed by: ??Dionicio Goodman MD ??07/14/2024 08:36 AM EST ? Dictated By: ?Dionicio Goodman MD ? Signed By: ?<Electronically signed by Dionicio Goodman MD in OV> ?07/14/24 0836 ? DD/ 1650 ? TD/TT: 07/13/24 1723 ? Gas Plant Repairer: ? Procedure Note Donroyalinterpreter, Image - 07/14/[address] [address] Fluoroscopy Report Signed Patient: Crystal Avila IMR# : [id number] : 8Acct:[id number] Age/Sex: 79 / FADM Date: 07/12/24 Loc: .S3 378-[address]: Dhiraj Pimentel MD Ordering Physician: Deo Oakes MD Date of Service: 07/13/24 Procedure(s): FL guidance in OR Accession Number(s): [id number] cc: Jefferson Sosa MD; Deo Oakes MD EXAMINATION: FL GUIDANCE ONLY HISTORY: RIGHT IM NAIL COMPARISON: Comparison is made with the prior examination of the right hip dated 07/12/2024. TECHNIQUE: Fluoroscopy time: 0.7 minutes. Cumulative Dose: 9.80 mGy. DAP: 0.164 mGym2 Images: 4. FINDINGS: Images demonstrate internal fixation of the previously noted comminuted intertrochanteric fracture with a compression screw and intramedullary ruel. FL/FL guidance in OR IMPRESSION: Fluoroscopy during procedure. Please see procedure report for additional information. Electronically signed by: Dionicio Goodman MD 07/14/2024 08:36 AM EST Dictated By: Dionicio Goodman MD Signed By: <Electronically signed by Dionicio Goodman MD in OV> 07/14/24 0836 DD/ 49 TD/TT: 07/13/241722 Gas Plant Repairer: [facility] External Provider IMG IR PROCEDURES Final Result * (ABNORMAL) LIPID PANEL, STANDARD (08/07/2020 8:22 AM EDT) Chol/HDLC Ratio 3.1 <5.0 (calc) [facility] Cholesterol, Total 145 <200 mg/dL [facility] HDL Cholesterol 47(L) > OR = 50 mg/dL [facility] LDL Cholesterol 82 mg/dL (calc) [facility] Comment: Reference range: <100 ?? Desirable range <100 mg/dL for primary prevention; ?? <70 mg/dL for patients with CHD or diabetic patients ?? with > or = 2 CHD risk factors. ?? LDL-C is now calculated using the Fredis ?? calculation, which is a validated novel method providing ?? better accuracy than the Friedewald equation in the ?? estimation of LDL-C. ?? Sherif CULVER et al. MARKUS. 2013;310(19): 6561-2402 ?? (http://education.[employer]/faq/QII075) Non-HDL Cholesterol 98 <130 mg/dL (calc) [facility] Comment: For patients with diabetes plus 1 major ASCVD risk ?? factor, treating to a non-HDL-C goal of <100 mg/dL ?? (LDL-C of <70 mg/dL) is considered a therapeutic ?? option. Triglycerides 84 <150 mg/dL [facility] 08/07/2020 8:22 AM EDT Jefferson Sosa MD LAB BLOOD ORDERABLES Final Result [facility] [address] from Last 3 Months or Most Recently Relevant to Health Maintenance Insurance [facility] STANDARD [facility] [employer] (HMO D-SNP) Advance Directives Documents on File Type Date Recorded Patient Jewel Supervisor Expl anation Advance Directives and Livin g Will 10/05/2023 2:44 PM HCP Care Teams Jewelry Dipper Relationship Specialty Start Date End Date Jefferson Sosa MD [address] [place] [id number] PCP - General Internal Medicine 05/17/13
--- OUTSIDE RECORDS SUMMARY | 2024-08-18 14:55 | XMS_ITS | Encounter Summary ---
Author Organization [facility] Address [address] [facility] [address] [place] [address] Care Team Providers Care Plate Shear Operator Name Role Phone Jefferson Sosa MD Primary Care Provider Reason for Visit * Reason Comments Med Refill Encounter Details Date Type Department Care Team (Late st Contact Info) Description 01/01/2023 Refill [facility] [address] [place] [address] Jefferson Sosa MD [address] [place] [address] Seasonal allergic rhinitis due to other allergic trigger; Other iron deficiency anemia Social History Tobacco Use Types Packs/Day Years [...] as of this encounter Visit Diagnoses Diagnosis Seasonal allergic rhinitis due to other allergic trigger Other iron deficiency anemia documented in this encounter Care Teams Plate Shear Operator Relationship Specialty Start Date End Date Jefferson Sosa MD [address] [place] [address] PCP - General Internal Medicine 05/17/13 documented as of this encounter
--- OUTSIDE RECORDS SUMMARY | 2024-08-18 14:55 | XMS_ITS | Encounter Summary ---
Author Organization [employer] Address [address] [facility] [address] [place] [address] Care Team Providers Care Assemblies And Installations Inspector Name Role Phone Jefferson Sosa MD Primary Care Provider Reason for Visit * Reason Onset Date Comments FYI 11/10/2023 Encounter Details Date Type Department Care Team (Late st Contact Info) Description 11/10/2023 Telephone [facility] [address] [place] [address] Jefferson Sosa MD [address] [place], [place] [phone] FY Social History Tobacco Use Types Packs/Day Years [...] Telephone Encounter - Diana Neal RN - 11/10/2023 4:25 PM EDT Noted. Will send to PCP as FYI as pt is scheduled with PCP on Wednesday. * Telephone Encounter - Timothy Ovalles - 11/10/2023 3:22 PM EDT Tc from [facility] at [facility] calling to report the patient had a headache and was not feeling well on 11/08 but is feeling much better today a nd the patient has not been weighing her self and is not sure if the patient has gain weight documented in this encounter Plan of Treatment Not on file documented as of this encounter Visit Diagnoses Not on filedocumented in this encounter Additional Health Concerns Assessment Noted Time PHQ-9 Depression Total Score: 0 10/01/19 3:56 PM EDT documented as of this encounter Care Teams Assemblies And Installations Inspector Relationship Specialty Start Date End Date Jefferson Sosa MD [address] [place] [phone] PCP - General Internal Medicine 05/17/13 documented as of this encounter
--- OUTSIDE RECORDS SUMMARY | 2024-08-18 14:55 | XMS_ITS | Encounter Summary ---
Author Organization [employer] [facility] Address [address] [facility] 7t [place] [address] Care Team Providers Care Ent Consultant Name Role Phone Jefferson Sosa MD Primary Care Provider [phone] Reason for Visit * Reason Comments Med Refill Encounter Details Date Type Department Care Team (Late st Contact Info) Description 12/30/2022 Refill [facility] [address] [place] [address] Jefferson Sosa MD [address] [place] [address] Other iron deficiency anemia; Seasonal allergic rhinitis due to other allergic trigger Social History Tobacco Use Types Packs/Day Years [...] as of this encounter Visit Diagnoses Diagnosis Other iron deficiency anemia Seasonal allergic rhinitis due to other allergic trigger documented in this encounter Care Teams Ent Consultant Relationship Specialty Start Date End Date Jefferson Sosa MD [address] [place] [address] PCP - General Internal Medicine 05/17/13 documented as of this encounter
--- OUTSIDE RECORDS SUMMARY | 2024-08-18 14:55 | XMS_ITS | Encounter Summary ---
Author Organization [employer] [facility] Address [address] [facility] 7[address] [place] [address] Care Team Providers Care Collection Systems Consultant Name Role Phone Jefferson Sosa MD Primary Care Provider Encounter Details Date Type Department Care Team (Latest Contact Info) Description 08/18/2024 Travel Social History Tobacco Use Types Packs/Day Years [...] documented as of this encounter Care Teams Collection Systems Consultant Relationship Specialty Start Date End Date Jefferson Sosa MD [address] [place] [phone] PCP - General Internal Medicine 05/17/13 documented as of this encounter
[2024-08-18 17:45] LABS: MANUAL DIFF FLAG NO
[2024-08-18 18:00] LABS: Basophils Percent Auto 0.4 % (0-2); Eosinophils Absolute Auto 0.1 X10*3/uL (0.0-0.4); Eosinophils Percent Auto 1.4 % (0-4); Hematocrit 32.7 % (37.0-47.0); Hemoglobin 10.2 g/dl (12.0-16.0); Imm Gran Abs Auto 0.02 X10*3/uL (0.00-0.03); Imm Gran Pct Auto 0.4 % (0.0-0.4); Lymphocytes Absolute Auto 0.8 X10*3/uL (1.2-4.9); Mean Corpuscular HGB Conc 31.2 g/dl (31.0-35.0); Mean Corpuscular Hemoglobin 29.7 pg (27.0-33.0); Mean Corpuscular Volume 95.1 fL (80.0-98.0); Mean Platelet Volume 10.6 fL (9.4-12.3); Monocytes Absolute Auto 0.3 X10*3/uL (0.1-1.2); Monocytes Percent Auto 5.6 % (2-11); Neutrophils Percent Auto 77.2 % (45-73); Platelet Count 258 X10*3/uL (160-400); Red Blood Count 3.44 X10*6/uL (4.20-5.50); Red Cell Distribution Width 15.3 % (11.0-16.0); White Blood Count 5.2 X10*3/uL (4.8-10.8)
[2024-08-18 18:05] LABS: Alanine Aminotransferase 14 U/L (0-31); Albumin Level 3.9 g/dL (3.5-5.0); Alkaline Phosphatase 133 U/L (39-117); Anion Gap 13 (12-20); Aspartate Amino Transferase 18 U/L (5-31); Bilirubin Total 0.3 mg/dL (0.0-1.0); Blood Urea Nitrogen 25 mg/dL (9-16); Calcium 9.5 mg/dL (8.4-10.2); Carbon Dioxide 27 mmol/L (22-29); Chloride 104 mmol/L (96-108); Estimated Glomerular Filt Rate 52; Glucose Random 87 mg/dL (60-115); Potassium 4.1 mmol/L (3.3-5.1); Sodium 140 mmol/L (135-145); Total Protein 8.2 g/dL (6.5-8.0)
== END 2024-08-18 14:38 | disposition home or self-care (01) ==
LOC: HO.CHCLDS 14:37
PROVIDERS: Visit Provider Internal Medicine
DX: D50.9 Iron deficiency anemia, unspecified (principal); E88.09 Other disorders of plasma-protein metabolism, not elsewhere classified
CPT/HCPCS: 36415; 80053; 85025

== ENCOUNTER 2024-08-23 07:47 | Outpatient (REF) | payer OTHER, SELFPAY ==
--- NOTE | ~2024-08-23 | XR_ITS ---
EXAMINATION: XR HIP, RIGHT CLINICAL INFORMATION: M25.551 - Pain in right hip COMPARISON: None available. TECHNIQUE: Two views of the right hip. FINDINGS: Redemonstration of ORIF of comminuted displaced intertrochanteric right hip fracture with intramedullary ruel and femoral head compression screw. There is been zoroastrianism of gross anatomic alignment. No evidence of acute periprosthetic lucency or loosening, nor periprosthetic fracture. There is some degree of early bony callus formation abutting the fracture fragments and margins. Fractures are still quite visible. Distal femoral intramedullary ruel appears well seated. Skin katalina have been removed. XR/XR hip RT min 2V IMPRESSION: ORIF of comminuted displaced intertrochanteric right hip fracture without complication. Rastafarian of gross anatomic alignment. There is evidence of early healing of the fractures. Electronically signed by: Milton Casanova MD 08/24/2024 09:17 AM EDT
--- OUTSIDE RECORDS SUMMARY | 2024-08-23 07:50 | XMS_ITS | Clinical Summary ---
Author Organization [facility] Address [address] [facility] 7t [place] [address] Care Team Providers Care Sleeve Machine Tender Name Role Phone Jefferson Sosa MD Primary [...] Encounters Date Type Department Care Team Description 08/22/2024 Telephone [facility] MED & PEDS [address] [place] [address] Jefferson Sosa MD Results 08/18/2024 1:30 PM EDT Office Visit [facility] MED & PEDS [address] [place] [address] Jefferson Sosa MD Microcytic anemia (Primary Dx); Hypoalbuminemia; Right hip pain; Closed subtrochanteric fracture of hip, right, initial encounter ([facility]) 08/18/2024 Travel 08/11/[address] [address] Perri Pinto, PharmAbe 08/11/[address] [address] Jefferson Sosa MD Call Back Request 08/10/2024 Patient Outreach [address] [address] Jefferson Sosa MD Transition Of Care (Tcm) (HDF scheduled) 08/07/2024 Telephone [facility] MED & PEDS [address] [place] [address] Jefferson Sosa MD Chart Prep 07/12/2024 Orders Only [facility] External Provider, [facility] 07/03/2024 Refill [facility] MED & PEDS [address] [place] [address] Jefferson Sosa MD Vitamin D deficiency; Vitamin B12 deficiency 06/30/2024 Refill [facility] MED & PEDS [address] [place] [address] Jefferson Sosa MD Depressive disorder 06/22/[address] [address] Jefferson Sosa MD Durable Medical Equipment 06/13/[address] [address] Jefferson Sosa MD Nurse Triage from Last [...] housing situation today? I have carlo dang 08/18/[address] you li ve. Do you have problems with any of the following? None of the above 08/18/2024 Food Insecurity Answer Date Recorded Within the past 12 months, y ou worried that your food would run out before you got money to buy more: Never True 08/18/2024 Within the past 12 months,th e food you bought just didn't last and you didn't have enough money to get more: Never True 03/2025 Transportation Answer Date Recorded In the past 12 months, has l ack of transportation kept you from medical appts, meetings, work or from getting things needed for daily living? No 08/18/2024 Utilities Answer Date Recorded In the past 12 months, has t he electric, gas, oil or water company threatened to shut off services in your home? Yes 08/18/2024 Depression Answer Date Recorded Patient Health Questionnaire-2 Score 0 10/01/2023 Internet Access Answer Date Recorded Internet Access Q1 No 08/18/2024 Internet Access Q2 Not on file 08/18/2024 Comments Unknown Sex and Gender Information Value [...] 08/18/2024 1:47 PM EDT Plan of Treatment Upcoming Encounters Date Type Department Care Team (Late st Contact Info) Description 12/04/2024 3:15 PM EDT Office Visit [facility] MED & PEDS [address] [place] [address] Jefferson Sosa MD 505 [place] [address] Health Maintenance Due Date Last Done Comments Hepatitis C Screening 07[birth year]10/1963 Hepatitis A Vaccines (1 of 2 - Risk 2-dose series) 07/10/1966 Hepatitis B Vaccines (1 of 3 - Risk 3-dose series) 2007 RSV Patients and Patients Aged 60 years or older (1 - 1-dose 75+ series) 07/10/2022 COVID-19 Vaccine ( season) 2024 08/09/2020, 07/30/2020, 07/19/2020, Additional history exists Influenza Vaccine (#1) 2024 2, 04/29/2020, 07/10/2019, Additional history exists DTaP/Tdap/Td Vaccines (2 - Td or Tdap) 09/20/2024 09/20/2014 Depression Screening 09/30/2024 10/01/2023, 10/01/19 Tobacco Screening 01/06/2025 01/07/2024 Lipid Panel 08/07/2025 08/07/2020 Alcohol/Substance Use Screening 08/18/2025 08/18/2024 SDOH Screening 08/18/2025 08/18/2024 Pneumococcal Vaccine: 50+ Years Completed 02/09/2022, 03/31/2017 Zoster Vaccines Completed 04/13/2022, 07/2021, 05/09/2014 HIB Vaccines Aged Out No longer eligi ble based on patient's age to complete this topic HPV Vaccines Aged Out No longer eligi ble based on patient's age to complete this topic IPV Vaccines Aged Out No longer eligi ble based on patient's age to complete this topic Meningococcal Vaccine Aged Out No vikash kigna eligible based on patient's age to complete this topic RSV under 20 months Aged Out No longe r eligible based on patient's age to complete this topic Rotavirus Vaccines Aged Out No longer eligible based on patient's age to complete this topic Procedures Procedure Name Priority Date/Time Associated Diagnosis Comments COMPREHENSIVE METABOLIC PANEL Routine 08/18/2024 2:44 PM EDT Hypoalbuminemia CBC WITH AUTO DIFFERENTIAL Routine 08/18/2024 2:40 PM EDT Microcytic anemia FL GUIDANCE IN OR Routine 07/13/2024 4:5 0 PM EST LIPID PANEL, STANDARD Routine 08/07/2020 8:22 AM EDT from Last 3 Months or Most Recently Relevant to Health Maintenance Results * (ABNORMAL) Comprehensive Metabolic Panel (08/18/2024 2:44 PM EDT) Sodium 140 135 - 145 mmol/L [facility] Potassium 4.1 3.3 - 5.1 mmol/L [facility] Chloride 104 96 - 108 mmol/L [facility] Carbon Dioxide 27 22 - 29 mmol/L [facility] Anion Gap 13 12 - 20 [facility] Urea Nitrogen (BUN) 25(H) 9 - 16 mg/dL [facility] Creatinine, Serum 1.03 0.5 - 1.4 mg/dL [facility] Estimated Glomerular Filt Rate 52 [facility] Comment:Chronic Kidney Disea se: Estimated GFR < 60 mL/min/1.59s0Xkehmb Kidney Disease: Estimated GFR < 15 mL/min/1.73m2 Glucose 87 60 - 115 mg/dL [facility] Calcium 9.5 8.4 - 10.2 mg/dL [facility] Bilirubin, Total 0.3 0.0 - 1.0 mg/dL [facility] Aspartate Amino Transferase 18 5 - 31 U/L [facility] Alanine Aminotransferase 14 0 - 31 U/L [facility] Total Protein 8.2(H) 6.5 - 8.0 g/dL [facility] Albumin Level 3.9 3.5 - 5.0 g/dL [facility] Alkaline Phosphatase 133(H) 39 - 117 U/L [facility] Blood Venous blood specimen / Unknown 08/18/2024 2:44 PM EDT 08/18/2024 5:41 PM EDT us Jefferson Sosa MD LAB BLOOD ORDERABLES Final Result [facility] [address] [place] [phone] * (ABNORMAL) CBC auto differential (08/18/2024 2:40 PM EDT) White Blood Count 5.2 4.8 - 10.8 X10*3/uL [facility] Red Blood Count 3.44(L) 4.20 - 5.50 X10*6/uL [facility] Hemoglobin 10.2(L) 12.0 - 16.0 g/dl [facility] Hematocrit 32.7(L) 37.0 - 47.0 % [facility] Mean Corpuscular Volume 95.1 80.0 - 98.0 fL [facility] Mean Corpuscular Hemoglobin 29.7 27.0 - 33.0 pg [facility] Mean Corpuscular HGB Conc 31.2 31.0 - 35.0 g/dl [facility] Red Cell Distribution Width 15.3 11.0 - 16.0 % [facility] Platelet Count 258 160 - 400 X10*3/uL [facility] Mean Platelet Volume 10.6 9.4 - 12.3 fL [facility] Neutrophils Percent Auto 77.2(H) 45 - 73 % [facility] Imm Gran Pct Auto 0.4 0.0 - 0.4 % [facility] Lymphocytes Percent Auto 15.0(L) 20 - 40 % [facility] Monocytes Percent Auto 5.6 2 - 11 % [facility] Eosinophils Percent Auto 1.4 0 - 4 % [facility] Basophils Percent Auto 0.4 0 - 2 % [facility] NRBC Pct Auto 0.0 0.0 - 0.2 /100WBC [facility] Neutrophils Absolute Auto 4.0 2.0 - 8.3 x10*3/uL [facility] Imm Gran Abs Auto 0.02 0.00 - 0.03 X10*3/uL [facility] Lymphocytes Absolute Auto 0.8(L) 1.2 - 4.9 X10*3/uL [facility] Monocytes Absolute Auto 0.3 0.1 - 1.2 X10*3/uL [facility] Eosinophils Absolute Auto 0.1 0.0 - 0.4 X10*3/uL [facility] Basophils Absolute Auto 0.0 0.0 - 0.2 X10*3/uL [facility] NRBC Abs Auto 0.000 0.0 - 0.012 X10*3/uL [facility] Blood Venous blood specimen / Unknown 08/18/2024 2:40 PM EDT 08/18/2024 5:41 PM EDT us Jefferson Sosa MD LAB BLOOD ORDERABLES Final Result [facility] [address] [place] [phone] [phone] * FL Guidance in OR (07/13/2024 4:50 PM EST) Anatomical Region Laterality Modality X-Ray Angiograph y 07/13/2024 4:50 PM EST Narrative 07/14/2024 8:38 AM EST ? [facility] ?[address] ?[place] [address] ? Fluoroscopy Report ? Signed ? Patient: Crystal Avila I ?MR# ?? : [id number] ? : 1945 ?Acct:[id number] ? Age/Sex: 79 / F ?ADM Date: 07/12/24 ? Loc: HO.S3 ?378-1 ? Attending Dr: Dhriaj Pimentel MD ? Ordering Physician: Deo Oakes MD ?? Date of Service: 07/13/24 ?? Procedure(s): FL guidance in OR ?? Accession Number(s): [id number] ? cc: Jefferson Sosa MD; Deo Oakes [...] ??Dionicio Goodman MD ??07/14/2024 08:36 AM EST ?? RP ? Dictated By: ?Dionicio Goodman MD ? Signed By: ?<Electronically signed by Dionicio Goodman MD in OV> ?07/14/24 0836 ? DD/ 49 ? TD/TT: 07/13/243 ? Inter Fold Roll Cutter: ? Procedure Note Donotuseinterpreter, Image - 07/14/[address] [address] Fluoroscopy Report Signed Patient: Crystal Avila IMR# : [id number] : 8Acct:[id number] Age/Sex: 79 / FADM Date: 07/12/24 Loc: [facility] 378-[address]: Dhiraj Pimentel MD Ordering Physician: Deo Oakes MD Date of Service: 07/13/24 Procedure(s): FL guidance in OR Accession Number(s): [id number] cc: Jefferson Sosa MD; Deo Oakes MD [...] by: Dionicio Goodman MD 07/14/2024 08:36 AM [facility] Dictated By: Dionicio Goodman MD Signed By: <Electronically signed by Dionicio Goodman MD in OV> 07/14/24 0836 DD/ 1650 TD/TT: 07/13/24 1723 Inter Fold Roll Cutter: [facility] External Provider IMG IR PROCEDURES Final [...] ?? Sherif CULVER et al. MARKUS. 2013;310(19): 8255-6672 ?? ([email or web address]) Non-HDL Cholesterol 98 <130 mg/dL (calc) [facility] Comment: For patients with diabetes plus 1 major ASCVD risk ?? factor, treating to a non-HDL-C goal of <100 mg/dL ?? (LDL-C of <70 mg/dL) is considered a therapeutic ?? option. Triglycerides 84 <150 mg/dL [facility] 08/07/2020 8:22 AM EDT us Jefferson Sosa MD LAB BLOOD ORDERABLES Final Result [facility] [address] from Last 3 Months or Most Recently Relevant to Health Maintenance Insurance [address] [place] [id number] [facility] Member Subscriber Plan / Payer (Ef fective 2017-Present) Name:Crystal Avila I Relation to Subscriber:Self Name:Crystal Avila I Payer ID:Not on file Group ID:[id number] Type:Not on file Address: [address] [facility]ANDARD [facility] INTERMEDIATE OPTIONS (HMO D-SNP) Advance Directives Documents on File Type Date Recorded Patient On Air Personality Expl anation Advance Directives and Livin g Will 10/05/2023 2:44 PM HCP Care Teams Sleeve Machine Tender Relationship Specialty Start Date End Date Jefferson Sosa MD [address] [place] [address] PCP - General Internal Medicine 05/17/13
--- OUTSIDE RECORDS SUMMARY | 2024-08-23 07:50 | XMS_ITS | Encounter Summary ---
Author Organization [employer] Address [address] [facility] [address] [place] [address] Care Team Providers Care Industrial Energy Engineer Name Role Phone Jefferson Sosa MD Primary Care Provider Reason for Visit * Reason Onset Date Comments Durable Medical Equipment 02/10/2024 Encounter Details Date Type Department Care Team (Late st Contact Info) Description 02/10/2024 Telephone [facility] MEDICINE [address] [place] [address] Jefferson Sosa MD [address] [place], [place] [phone] Durable Medical Equipment Social History Tobacco Use [...] 02/15/2024 9:30 AM EDT Rx generated through [employer] and pending PCP signature. Informed Mason of rx in process. Mason agrees with plan. * Telephone Encounter - Sharon Pinto LPN - 02/11/2024 12:41 PM EDT Please review message below and advise . If agreed please review Dx for this request , Thank you Tc from Mason requesting arm rest for toilet that rest on the toilet bowl. Pt would like that faxedbailey [facility]. If any questions you can contact Mason at [phone]. [facility] Fac: [phone] * Telephone Encounter - Vinayak Schuler - 02/10/2024 11:42 AM EDT Tc from Mason requesting arm rest for toilet that rest on the toilet bowl. Pt would like that faxedto [facility]. If any questions you can contact Mason at [phone]. [facility] Fac: [phone] documented in this encounter Plan of Treatment Upcoming Encounters Date Type Department Care Team (Late st Contact Info) Description 12/04/2024 3:15 PM EDT Office Visit [facility] MED & PEDS [address] [place] [address] Jefferson Sosa MD [address] [place] [address] documented as of this encounter Visit Diagnoses Not on filedocumented in this encounter Additional Health Concerns Assessment Noted Time PHQ-9 Depression Total Score: 0 10/01/19 3:56 PM EDT documented as of this encounter Care Teams Industrial Energy Engineer Relationship Specialty Start Date End Date Jefferson Sosa MD [address] [place] [address] PCP - General Internal Medicine 05/17/13 documented as of this encounter
--- OUTSIDE RECORDS SUMMARY | 2024-08-23 07:50 | XMS_ITS | Encounter Summary ---
Author Organization [facility] Address [address] [place] [address] [address] [place] [address] Care Team Providers Care Press Operator Assistant Name Role Phone Jefferson Sosa MD Primary Care Provider Reason for Visit * Reason Comments Med Refill Encounter Details Date Type Department Care Team ([facility] Contact Info) Description 12/30/2022 Refill [facility] MED & PEDS [address] [place] [address] Jefferson Sosa MD [address] [place] [address] Other iron deficiency anemia; Seasonal allergic rhinitis [...] as of this encounter Plan of Treatment Upcoming Encounters Date Type Department Care Team ([facility] Contact Info) Description 12/04/2024 3:15 PM EDT Office Visit [facility] MED & PEDS [address] [place] [address] Jefferson Sosa MD [address] [place] [address] documented as of this encounter Visit Diagnoses Diagnosis Other iron deficiency anemia Seasonal allergic rhinitis due to other allergic trigger documented in this encounter Care Teams Press Operator Assistant Relationship Specialty Start Date End Date Jefferson Sosa MD [address] [place] [address] PCP - General Internal Medicine 05/17/13 documented as of this encounter
--- OUTSIDE RECORDS SUMMARY | 2024-08-23 07:50 | XMS_ITS | Encounter Summary ---
Author Organization [employer] [facility] Address [address] [place] [address] [address] [address] Care Team Providers Care Supervisor Electron Tube Processing Name Role Phone Jefferson Sosa MD Primary Care Provider Reason for Visit * Reason Comments Med Refill Encounter Details Date Type Department Care Team ([facility] Contact Info) Description 01/01/2023 Refill [facility] MED & PEDS [address] [place] [address] Jefferson Sosa MD 505 [place] [address] Seasonal allergic rhinitis due to other allergic [...] Upcoming Encounters Date Type Department Care Team ([facility] Contact Info) Description 12/04/2024 3:15 PM EDT Office Visit [facility] MED & PEDS [address] [place] [address] Jeffersno Sosa MD [address] [place] [address] documented as of this encounter Visit Diagnoses Diagnosis Seasonal allergic rhinitis due to other allergic trigger Other iron deficiency anemia documented in this encounter Care Teams Supervisor Electron Tube Processing Relationship Specialty Start Date End Date Jefferson Sosa MD [address] [place] [address] PCP - General Internal Medicine 05/17/13 documented as of this encounter
--- OUTSIDE RECORDS SUMMARY | 2024-08-23 07:50 | XMS_ITS | Encounter Summary ---
Author Organization [facility] Address [address] [facility] [address] [place] [address] Care Team Providers Care Social Work Therapist Name Role Phone Jefferson Sosa MD Primary Care Provider [phone] Encounter Details Date Type Department Care Team ([facility] Contact Info) Description 11/11/2022 Abstract [facility] MEDICINE [address] [place], [place] [phone] Jefferson Sosa MD [address] [place] [address] Social History Tobacco Use Types Packs/Day Years [...] Upcoming Encounters Date Type Department Care Team ([facility] Contact Info) Description 12/04/2024 3:15 PM EDT Office Visit [facility] MED & PEDS [address] [place] [address] Jefferson Sosa MD [address] [place], [place] [phone] documented as of this encounter Visit Diagnoses Not on filedocumented in this encounter Care Teams Social Work Therapist Relationship Specialty Start Date End Date Jefferson Sosa MD [address] [place] [address] PCP - General Internal Medicine 05/17/13 documented as of this encounter
--- OUTSIDE RECORDS SUMMARY | 2024-08-23 07:50 | XMS_ITS | Encounter Summary ---
Author Organization [facility] [facility] Address [address] [facility] 7t [place] [address] Care Team Providers Care Pulverizer Tender Name Role Phone Jefferson Sosa MD [...] your housing situation today? I have carlo alton 08/18/[address] you li [...] Description 12/04/2024 3:15 PM EDT Office Visit [facility] MED & PEDS [address] [place] [address] Jefferson Sosa MD [address] [place] [address] documented as of this encounter Visit Diagnoses Not on filedocumented in this encounter Additional Health Concerns Assessment Noted Time PHQ-9 Depression Total Score: 0 10/01/19 24 3:56 PM EDT documented as of this encounter Care Teams Pulverizer Tender Relationship Specialty Start Date End Date Jefferson Sosa MD [address] [place] [address] PCP - General Internal Medicine 05/17/13 documented as of this encounter
--- OUTSIDE RECORDS SUMMARY | 2024-08-23 07:50 | XMS_ITS | Encounter Summary ---
Author Organization [employer] Address [address] 7[address] [place] [address] Care Team Providers Care Recycling Operations Manager Name Role Phone Jefferson Sosa MD Primary Care Provider Reason for Visit * Reason Onset Date Comments ER Follow-up 11/26/2023 Encounter Details Date Type Department Care Team ([facility] st Contact Info) Description 11/26/[address] [facility] MEDICINE [address] [place] [address] Jefferson Sosa MD [address] [place], [place] [phone] ER Follow-up Social History Tobacco Use Types [...] not set up. Call to yanni arango, MARKET DEVELOPMENT SPECIALIST not with pt, gave daughter number. No answer LVM to return callto [facility]. * Telephone Encounter - Timothy Ovalles - 11/26/2023 11:19 AM EDT Patient calling to report ED visit on : Date: 11/24 Hospital: [facility] Seen for: Feet swelling and chest pain Patient advised will forward to team nurse for follow up documented in this encounter Plan of Treatment Upcoming Encounters Date Type Department Care Team (Late st Contact Info) Description 12/04/2024 3:15 PM EDT Office Visit [facility] MED & PEDS [address] [place] [address] Jefferson Sosa MD [address] [place] [address] documented as of this encounter Visit Diagnoses Not on filedocumented in this encounter Additional Health Concerns Assessment Noted Time PHQ-9 Depression Total Score: 0 10/01/19 3:56 PM EDT documented as of this encounter Care Teams Recycling Operations Manager Relationship Specialty Start Date End Date Jefferson Sosa MD [address] [place] [address] PCP - General Internal Medicine 05/17/13 documented as of this encounter
--- OUTSIDE RECORDS SUMMARY | 2024-08-23 07:50 | XMS_ITS | Encounter Summary ---
Author Organization [employer] Address [address] [facility] 7t [place] [address] Care Team Providers Care Body Shop Mechanic Name Role Phone Jefferson Sosa MD Primary Care Provider Encounter Details Date Type Department Care Team (Late st Contact Info) Description 07/23/2023 Orders Only [facility] MED & PEDS [address] [place], [place] [phone] Jefferson Sosa MD [address] [place] [address] Memory disturbance (Primary Dx) Social History Tobacco [...] Description 12/04/2024 3:15 PM EDT Office Visit [facility] MED & PEDS [address] [place] [address] Jefferson Sosa MD [address] [place] [address] documented as of this encounter Procedures Procedure Name Priority Date/Time Associated Diagnosis Comments VASC US LOWER EXTREMITY VENOUS DUPLEX BILATERAL Routine 08/19/2023 3:18 PM EDT documented in this encounter Results * VASC US Lower Extremity Venous Duplex Bilateral (08/19/2023 3:18 PM EDT) 08/19/2023 3:18 PM EDT Narrative [facility] - 08/25/2023 2:32 PM EDT ? [facility] ?[address] ?[place] [address] ? Ultrasound Report ? Signed ? Patient: Crystal Avila I ?MR# ?? : [id number] ? : 1945 ?Acct:[id number] ? Age/Sex: 78 / F ?ADM Date: 08/19/23 ? Loc: HO.US ? Attending Dr: Saad Michaels MD ? Ordering Physician: SAAD MICHAELS MD ?? Date of Service: 08/19/23 ?? Procedure(s): US venous duplex LE BI ?? Accession Number(s): [id number] ? cc: SAAD MICHAELS MD; Jefferson Sosa [...] 1428 ? DD/ 1518 ? TD/TT: ? Process Automation Engineer: ? Procedure Note Ceasar Zepeda - 08/25/[address] [address] Ultrasound Report Signed Patient: Crystal Avila IMR# : [id number] : 8Acct:[id number] Age/Sex: 78 / FADM Date: 08/19/23 Loc: HO.US Attending Dr: Saad Michaels MD Ordering Physician: SAAD MICHAELS MD Date of Service: 08/19/23 Procedure(s): US venous duplex LE BI Accession Number(s): [id number] cc: SAAD MICHAELS MD; Jefferson Sosa MD [...] in OV> 08/25/23 1428 DD/ 1518 TD/TT: Process Automation Engineer: us Saad Michaels MD CV VASCULAR PROCEDURES Final Res ult [facility] [address] [place] [address] documented in this encounter Visit Diagnoses Diagnosis Memory disturbance- Primary Memory loss documented in this encounter Care Teams Body Shop Mechanic Relationship Specialty Start Date End Date Jefferson Sosa MD [address] [place] [address] PCP - General Internal Medicine 05/17/13 documented as of this encounter
--- OUTSIDE RECORDS SUMMARY | 2024-08-23 07:50 | XMS_ITS | Encounter Summary ---
Author Organization [employer] Address [address] [facility] 7t [place] [address] Care Team Providers Care Puffer Tender Name Role Phone Jefferson Sosa MD Primary Care Provider [phone] Reason for Visit * Reason Onset Date Comments Results 08/22/2024 Encounter Details Date Type Department Care Team ([facility] st Contact Info) Description 08/22/2024 Telephone [facility] MED [facility] PEDS [address] [place] [address] Jefferson Sosa MD [address] [place] [address] Results Social History Tobacco Use Types Packs/Day Years [...] encounter Miscellaneous Notes * Telephone Encounter - Amber Roa RN - 08/22/2024 12:29 PM EDT TC to pt. No answer. Voicemail left. documented in this encounter Plan of Treatment Upcoming Encounters Date Type Department Care Team (Late st Contact Info) Description 12/04/2024 3:15 PM EDT Office Visit [facility] MED & PEDS [address] [place] [address] Jefferson Sosa MD [address] [place] [address] documented as of this encounter Visit Diagnoses Not on filedocumented in this encounter Additional Health Concerns Assessment Noted Time PHQ-9 Depression Total Score: 0 10/01/19 24 3:56 PM EDT documented as of this encounter Care Teams Puffer Tender Relationship Specialty Start Date End Date Jefferson Sosa MD [address] [place] [address] PCP - General Internal Medicine 05/17/13 documented as of this encounter
--- OUTSIDE RECORDS SUMMARY | 2024-08-23 07:50 | XMS_ITS | Encounter Summary ---
Author Organization [employer] Address [address] [facility] [address] 7[address] [place] [address] Care Team Providers Care Mortgage Loan Reviewer Name Role Phone Jefferson Sosa MD Primary Care Provider Reason for Visit * Reason Onset Date Comments FYI 11/10/2023 Encounter Details Date Type Department Care Team (Late st Contact Info) Description 11/10/2023 Telephone [facility] MEDICINE [address] [place] [address] Jefferson Sosa MD [address] [place] [address] FY Social History Tobacco Use Types Packs/Day [...] 3:22 PM EDT Tc from Rob at [facility] calling to report the patient had a [...] PM EDT Office Visit [facility] MED & PEDS [address] [place] [address] Jefferson Sosa MD [address] [place] [address] documented as of this encounter Visit Diagnoses Not on filedocumented in this encounter Additional Health Concerns Assessment Noted Time PHQ-9 Depression Total Score: 0 10/01/19 3:56 PM EDT documented as of this encounter Care Teams Mortgage Loan Reviewer Relationship Specialty Start Date End Date Jefferson Sosa MD [address] [place] [address] PCP - General Internal Medicine 05/17/13 documented as of this encounter
--- OUTSIDE RECORDS SUMMARY | 2024-08-23 07:50 | XMS_ITS | Encounter Summary ---
Author Organization [employer] [facility] Address [address] [place] [address] [address] [place] [address] Care Team Providers Care Supervisor Powder And Primer Canning Name Role Phone Jefferson Sosa MD Primary Care Provider Reason for Visit * Reason Comments Med Refill Encounter Details Date Type Department Care Team ([facility] Contact Info) Description 10/19/2022 Refill [facility] MED & PEDS [address] [place] [address] Jefferson Sosa MD [address] [place] [address] Epigastric pain; Vitamin D deficiency Social History [...] Upcoming Encounters Date Type Department Care Team ([facility] Contact Info) Description 12/04/2024 3:15 PM EDT Office Visit [facility] MED & PEDS [address] [place] [address] Jefferson Sosa MD [address] [place] [address] documented as of this encounter Visit Diagnoses Diagnosis Epigastric pain Abdominal pain, epigastric Vitamin D deficiency documented in this encounter Care Teams Supervisor Powder And Primer Canning Relationship Specialty Start Date End Date Jefferson Sosa MD [address] [place] [phone] PCP - General Internal Medicine 05/17/13 documented as of this encounter
--- OUTSIDE RECORDS SUMMARY | 2024-08-23 07:50 | XMS_ITS | Encounter Summary ---
Author Organization [employer] Address [address] [facility] [address] 7[address] [place] [address] Care Team Providers Care Counter Supervisor Name Role Phone Jefferson Sosa MD Primary Care Provider Encounter Details Date Type Department Care Team (Late st Contact Info) Description 02/14/2024 Orders Only [facility] [address] [place] [address] Jefferson Sosa MD [address] [place] [address] Social History Tobacco Use Types Packs/Day Years [...] 12/04/2024 3:15 PM EDT Office Visit [facility] MED [facility] PEDS [address] [place] [address] Jefferson Sosa MD [address] [place] [address] documented as of this encounter Visit Diagnoses Not on filedocumented in this encounter Additional Health Concerns Assessment Noted Time PHQ-9 Depression Total Score: 0 10/01/19 24 3:56 PM EDT documented as of this encounter Care Teams Counter Supervisor Relationship Specialty Start Date End Date Jefferson Sosa MD [address] [place] [address] PCP - General Internal Medicine 05/17/13 documented as of this encounter
--- OUTSIDE RECORDS SUMMARY | 2024-08-23 07:50 | XMS_ITS | Encounter Summary ---
Author Organization [employer] Address [address] [facility] 7t [place] [address] Care Team Providers Care Yarn Preparation Supervisor Name Role Phone Jefferson Sosa MD Primary Care Provider Reason for Visit * Reason Onset Date Comments Order for VNA Services 01/28/2024 Encounter Details Date Type Department Care Team ([facility] st Contact Info) Description 01/28/2024 Telephone [facility] MEDICINE [address] [place] [address] Jefferson Sosa MD [address] [place] [address] Order for VNA Services Social History Tobacco [...] - 01/28/2024 8:12 AM EDT Tc from [facility] requesting a New order for VNA Services due to pt getting a biopsy done for some masses and is requiring services. documented in this encounter Plan of Treatment Upcoming Encounters Date Type Department Care Team (Late st Contact Info) Description 12/04/2024 3:15 PM EDT Office Visit [facility] CH[facility] MED & PEDS [address] [place] [address] Jefferson Sosa MD [address] [place] [address] documented as of this encounter Visit Diagnoses Not on filedocumented in this encounter Additional Health Concerns Assessment Noted Time PHQ-9 Depression Total Score: 0 10/01/19 3:56 PM EDT documented as of this encounter Care Teams Yarn Preparation Supervisor Relationship Specialty Start Date End Date Jefferson Sosa MD [address] [place] [address] PCP - General Internal Medicine 05/17/13 documented as of this encounter
--- OUTSIDE RECORDS SUMMARY | 2024-08-23 07:50 | XMS_ITS | Encounter Summary ---
Author Organization [employer] Address [address] [facility] 7t [place] [address] Care Team Providers Care Electronic Controls Repairer Supervisor Name Role Phone Jefferson Sosa MD Primary Care Provider Encounter Details Date Type Department Care Team (Latest Contact Info) Description 08/18/2024 1:30 PM EDT Office Visit [facility] CHC MED & PEDS [address] [place], [place] [phone] Jefferson Sosa MD [address] [place] [address] Microcytic anemia (Primary Dx); Hypoalbuminemia; Right hip pain; Closed subtrochanteric fracture of hip, right, initial encounter (CMS/[facility]) Social History Tobacco Use Types Packs/Day Years [...] 1:47 PM EDT documented in this encounter Progress Notes * Jefferson Sosa MD - 08/18/2024 1:30 PM EDT Subjective Patient ID: Crystal Schuler is a 79 y.o. female who presents for No chief complaint on file.. HPI Patient was hospitalized from 07/12/2024 to 07/17/2024 for right hip pain after fall. X-ray of the right hip showed slightly displaced fracture of the right proximal femur. Patient underwent right I am in on July 13 and did well postop. Hospitalization complicated with anemia which required transfusion of 2 units of PRBC. PT was recommended. Discharged to [facility] on oxycodone and Tylenol for pain control and enoxaparin forDVT prophylaxis for 6 weeks from the date of surgery. Ms Crystal Schuler was reevaluated at [facility] by [facility] on July 28the right subtrochanteric fracture of the right hip was recovering well. The katalina were removed. Patient is to follow-up in 4 weeks from the date of that visit and to get a repeat x-ray for reassessment. Instructed to contact that office sooner if having any concerns. Patient is back to her house. She has her niece Kathie living with her. Her DEVELOPMENT AND PLANNING ENGINEER hours have increased to 32 hours a week now. Patient came to the office today's visit with her daughter and her niece who is her DEVELOPMENT AND PLANNING ENGINEER and they take turn to be with Mrs. Crystal Schuler to prevent her from falling. She has been eating more lately. She has received a visit from [facility] yesterday and will receive another visit tomorrow. Her pain is fairly well-controlled and she has not started physical therapy yet. Patient Active Problem List Diagnosis Allergic rhinitis Anemia Benign essential hypertension Chronic renal failure Depressive disorder Generalized osteoarthritis Hyperglycemia Hypoalbuminemia Liver mass Carcinoma of liver (CMS/HCC) Obesity Vitamin deficiency Cyst of kidney, acquired Metastatic non-small cell lung cancer (CMS/HCC) ELIF (iron deficiency anemia) NSTEMI (non-ST elevated myocardial infarction) (CMS/HCC) Chronic GERD Current Outpatient Medications on File Prior to Visit Medication Sig Dispense Refill acetaminophen (Tylenol) 325 MG tablet Take 2 tablets by mouth every 6 (six) hours if needed for mild pain. cetirizine (ZyrTEC) 10 MG tablet TAKE ONE TABLET BY MOUTH EVERY DAY NEEDED (VIAL) 28 tablet 11 cholecalciferol (Vitamin D-3) 25 MCG (1000 UT) capsule TAKE ONE CAPSULE BY MOUTH EVERY DAY 28 capsule 5 cyanocobalamin (Vitamin B-12) 500 MCG tablet TAKE ONE TABLET BY MOUTH EVERY DAY ^1R1 28 tablet 5 donepezil (Aricept) 5 MG tablet TAKE ONE TABLET BY MOUTH EVERY EVENING ^1R4 30 tablet 5 Enoxaparin Sodium 40 MG/0.4ML solution prefilled syringe Inject 40 mg as directed 1 (one) time eachday at the same time. famotidine (Pepcid) 40 MG tablet Take 1 tablet by mouth in the morning. ferrous sulfate (FeroSul) 325 (65 Fe) MG tablet TAKE ONE TABLET BY MOUTH EVERY OTHER DAY 15 tablet 5 mirtazapine (Remeron) 7.5 MG tablet TAKE 1 TABLET BY MOUTH EVERYDAY AT BEDTIME 30 tablet 0 omeprazole (PriLOSEC) [address] capsule Take 1 capsule by mouth 2 times daily. Do not crush or chew. [DISCONTINUED] albuterol 108 (90 Base) MCG/ACT inhaler [DISCONTINUED] Cyanocobalamin 500 MCG lozenge 1 Lozenge a day [DISCONTINUED] ethambutol (Myambutol) 400 MG tablet Take 1 tablet by mouth. On Wednesday, Wednesday and Wednesday [DISCONTINUED] fluticasone (Flonase) 50 MCG/ACT nasal spray spray 1 spray by intranasal route everyday in each nostril [DISCONTINUED] Nutritional Supplements (Ensure Active High Protein) liquid 1 bottle 3 times every day 237 mL 11 [DISCONTINUED] omeprazole (PriLOSEC) [address] capsule TAKE ONE CAPSULE BY MOUTH EVERY DAY BEFORE MEALS ^1R1 30 capsule 11 No current facility-administered medications on file prior to visit. No Known Allergies Review of Systems Constitutional: Negative for appetite change, chills and diaphoresis. Eyes: Negative for pain, redness and itching. Respiratory: Negative for cough, choking, chest tightness, shortness of breath and stridor. Cardiovascular: Negative for palpitations and leg swelling. Genitourinary: Negative for dyspareunia, dysuria, enuresis, flank pain, pelvic pain and urgency. Musculoskeletal: Negative for arthralgias and back pain. Neurological: Negative for light-headedness and headaches. Psychiatric/Behavioral: Negative for agitation, behavioral problems and confusion. Objective BP 133/67 (BP Location: Left arm, Patient Position: Sitting, BP Cuff Size: Adult) Pulse 84 Temp97.8 ??F (36.6 ??C) (Oral) Resp 20 Ht 5' (1.524 m) Wt 98 lb (44.5 kg) SpO2 96% BMI 19.14 kg/m?? Physical Exam Constitutional: General: She is not in acute distress. Appearance: Normal appearance. She is not ill-appearing, toxic-appearing or diaphoretic. Cardiovascular: Rate and Rhythm: Normal rate. Pulmonary: Effort: Pulmonary effort is normal. Musculoskeletal: Comments: Antalgic gait favoring the right hip. Neurological: Mental Status: She is alert. Assessment/Plan Diagnoses and all orders for this visit: Microcytic anemia Comments: Repeat CBC today Patient will be contacted with the results. Orders: - CBC auto differential; Future Hypoalbuminemia Comments: Adequate protein intake recommended Patient is to continue with Ensure high-protein supplementation. Orders: - Nutritional Supplements (Ensure Active High Protein) liquid; 1 bottle 3 times every day - Comprehensive Metabolic Panel; Future Right hip pain Comments: Tylenol as needed Keep the scheduled appointment with Dr. Oakes as scheduled in 2 weeks Closed subtrochanteric fracture of hip, right, initial encounter ([facility]) Comments: Follow-up with Ortho as scheduled Patient will need a repeat x-ray to assess stability documented in this encounter Plan of Treatment Upcoming Encounters Date Type Department Care Team (Late st Contact Info) Description 12/04/2024 3:15 PM EDT Office Visit [facility] MED & PEDS [address] [place], [place] [phone] Jefferson Sosa MD [address] [place] [address] documented as of this encounter Procedures Procedure Name Priority Date/Time Associated Diagnosis Comments COMPREHENSIVE METABOLIC PANEL Routine 08/18/2024 2:44 PM EDT Hypoalbuminemia CBC WITH AUTO DIFFERENTIAL Routine 08/18/2024 2:40 PM EDT Microcytic anemia documented in this encounter Results * (ABNORMAL) Comprehensive Metabolic Panel (08/18/2024 2:44 PM EDT) Sodium 140 135 - 145 mmol/L [facility] Potassium 4.1 3.3 - 5.1 mmol/L [facility] Chloride 104 96 - 108 mmol/L [facility] Carbon Dioxide 27 22 - 29 mmol/L [facility] Anion Gap 13 12 - 20 [facility] Urea Nitrogen (BUN) 25(H) 9 - 16 mg/dL [facility] Creatinine, Serum 1.03 0.5 - 1.4 mg/dL [facility] Estimated Glomerular Filt Rate 52 [facility] Comment:Chronic Kidney Disea se: Estimated GFR < 60 mL/min/1.81z4Awcnwv Kidney Disease: Estimated GFR < 15 mL/min/1.73m2 Glucose 87 60 - 115 mg/dL [facility] Calcium 9.5 8.4 - 10.2 mg/dL [facility] Bilirubin, Total 0.3 0.0 - 1.0 mg/dL [facility] Aspartate Amino Transferase 18 5 - 31 U/L [facility] Alanine Aminotransferase 14 0 - 31 U/L [facility] Total Protein 8.2(H) 6.5 - 8.0 g/dL [facility] Albumin Level 3.9 3.5 - 5.0 g/dL [facility] Alkaline Phosphatase 133(H) 39 - 117 U/L [facility] Blood Venous blood specimen / Unknown 08/18/2024 2:44 PM EDT 08/18/2024 5:41 PM EDT us Jefferson Sosa MD LAB BLOOD ORDERABLES Final Result [facility] [address] [place] [phone] * (ABNORMAL) CBC auto differential (08/18/2024 2:40 PM EDT) White Blood Count 5.2 4.8 - 10.8 X10*3/uL [facility] Red Blood Count 3.44(L) 4.20 - 5.50 X10*6/uL [facility] Hemoglobin 10.2(L) 12.0 - 16.0 g/dl [facility] Hematocrit 32.7(L) 37.0 - 47.0 % [facility] Mean Corpuscular Volume 95.1 80.0 - 98.0 fL [facility] Mean Corpuscular Hemoglobin 29.7 27.0 - 33.0 pg [facility] Mean Corpuscular HGB Conc 31.2 31.0 - 35.0 g/dl [facility] Red Cell Distribution Width 15.3 11.0 - 16.0 % [facility] Platelet Count 258 160 - 400 X10*3/uL [facility] Mean Platelet Volume 10.6 9.4 - 12.3 fL [facility] Neutrophils Percent Auto 77.2(H) 45 - 73 % [facility] Imm Gran Pct Auto 0.4 0.0 - 0.4 % [facility] Lymphocytes Percent Auto 15.0(L) 20 - 40 % [facility] Monocytes Percent Auto 5.6 2 - 11 % [facility] Eosinophils Percent Auto 1.4 0 - 4 % [facility] Basophils Percent Auto 0.4 0 - 2 % [facility] NRBC Pct Auto 0.0 0.0 - 0.2 /100WBC [facility] Neutrophils Absolute Auto 4.0 2.0 - 8.3 x10*3/uL [facility] Imm Gran Abs Auto 0.02 0.00 - 0.03 X10*3/uL [facility] Lymphocytes Absolute Auto 0.8(L) 1.2 - 4.9 X10*3/uL [facility] Monocytes Absolute Auto 0.3 0.1 - 1.2 X10*3/uL [facility] Eosinophils Absolute Auto 0.1 0.0 - 0.4 X10*3/uL [facility] Basophils Absolute Auto 0.0 0.0 - 0.2 X10*3/uL [facility] NRBC Abs Auto 0.000 0.0 - 0.012 X10*3/uL [facility] Blood Venous blood specimen / Unknown 08/18/2024 2:40 PM EDT 08/18/2024 5:41 PM EDT us Jefferson Sosa MD LAB BLOOD ORDERABLES Final Result [facility] [address] [place] [phone] [phone] documented in this encounter Visit Diagnoses Diagnosis Microcytic anemia- Primary Unspecified iron deficiency anemia Hypoalbuminemia Other disorders of plasma protein metabolism Right hip pain Pain in joint, pelvic region and thigh Closed subtrochanteric fracture of hip, right, initial encounter ([facility]) documented in this encounter Additional Health Concerns Assessment Noted Time PHQ-9 Depression Total Score: 0 10/01/19 24 3:56 PM EDT documented as of this encounter Care Teams Electronic Controls Repairer Supervisor Relationship Specialty Start Date End Date Jefferson Soas MD [address] [place] [phone] PCP - General Internal Medicine 05/17/13 documented as of this encounter
== END 2024-08-23 07:48 | disposition home or self-care (01) ==
LOC: HO.HOSX 07:47
DX: S72.001D Fracture of unspecified part of neck of right femur, subsequent encounter for closed fracture with routine healing (principal)
CPT/HCPCS: 73502; 99212

== ENCOUNTER 2024-08-23 11:22 | Outpatient (AMB) | payer OTHER, SELFPAY ==
--- NOTE | 2024-08-23 11:24 | A.OFFVIS_ITS ---
Intake Visit Reasons: PO-right hip IM nail, DOS 07/13/2024 Intake Note: Crystal is a 79 year old female who presents today for her post operative visit s/p Right hip IMN DOS: 07/13/24 w/ Dr Deo Oakes. Patient is ambulating slowly with a walker, reports that she is doing well with no concerns. Allergies No Known Allergies [No Known Allergies*] Allergy (Verified 07/28/24 11:48) HPI HPI PO-right hip IM nail, DOS 07/13/2024: Details: Crystal is a 79 year old female who presents today for her post operative visit s/p Right hip IMN DOS: 07/13/24 w/ Dr Deo Oakes. Patient is ambulating slowly with a walker, reports that she is doing well with no concerns. 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 Hemoptysis Lymphadenopathy Injury of right knee Elevated blood sugar Chronic renal failure Renal cyst Vitamin deficiency, unspecified Allergic rhinitis Depressive disorder Osteoarthritis Obesity HTN (hypertension) Anemia Surgical History (Updated 07/25/24 @ 00:01 by Background Daemon) History of esophagogastroduodenoscopy (EGD) (~2017) History of section History of liver biopsy (~2021) Family History Father Cancer Mother Cancer Paternal Grandmother Cancer Social History Household Members: Unknown / Unable to assess Housing: Apartment Are you a primary hospice care sales consultant to a significant other at home: No Do you presently have visiting nurse or other home services: Yes Alcohol intake: never Patient Tobacco Use Status: Never used Tobacco service: No Current occupational status: retired and disabled Review of Systems Const All systems reviewed & are unremarkable except as noted in HPI and below Physical Exam Vital Signs: Last Vital Signs Temp 98.1 F 07/15/24 07:23 Pulse 89 07/15/24 07:23 Resp 16 07/15/24 07:23 BP 101/55 L 07/15/24 07:23 Pulse Ox 94 07/15/24 07:23 O2 Del Method Room Air 07/15/24 07:23 O2 Flow Rate 2 07/14/24 07:06 BMI result Body Mass Index 19.5 Extrem Other: Incisions on right hip and leg clean, dry, intact, well healed No evidence of surrounding erythema, ecchymosis No evidence of infection Patient is able to flex and extend the digits of the left foot without difficulty Patient was able to stand and ambulate with a walker Compartments soft, nontender Distal sensation intact Capillary refill brisk Results Reviewed Results Reviewed: X-rays obtained in the office today and independently reviewed by me, Florin Ivy PA-C, demonstrate subtrochanteric fracture of the right hip with all orthopedic hardware in place and in satisfactory clinical alignment with evidence of interval bony healing. Assessment & Plan Assessment & Plan (1) Closed fracture of right hip: Code(s): S72.001A - Fracture of unspecified part of neck of right femur, initial encounter for closed fracture Category: Medical Qualifiers: Encounter type: initial encounter Qualified Code(s): S72.001A - Fracture of unspecified part of neck of right femur, initial encounter for closed fracture Plan 1. Subtrochanteric fracture of right hip status post IM nail DOS 07/13/2024 Patient appears to be recovering well postoperatively Patient was educated about the typical recovery course Patient is educated she can begin to shower once again Patient is educated she should continue working with physical therapy on gait training, range of motion, strengthening of the right hip May continue weight-bearing as tolerated Patient will follow-up 6 weeks with repeat x-rays for reassessment, sooner with any acute concerns Orders: Orders XR hip RT min 2V Today M25.551 - Pain in right hip Coding Level of Care Code Global (75467) Diagnoses Closed fracture of right hip, initial encounter S72.001A Encounter type: initial encounter
--- OUTSIDE RECORDS SUMMARY | 2024-08-23 13:48 | XMS_ITS | Encounter Summary ---
Author Organization [employer] Address [address] [facility] 7t [place] [address] Care Team Providers Care Medical Laboratory Technical Officer Name Role Phone Jefferson Sosa MD Primary Care Provider Encounter Details Date Type Department Care Team (Late st Contact Info) Description 07/23/[address] [facility] MED & PEDS [address] [place], [place] [phone] Jefferson Sosa MD [address] [place] [address] Memory disturbance (Primary Dx) Social History Tobacco [...] Description 12/04/2024 3:15 PM EDT Office Visit [facility] MED [facility] PEDS [address] [place] [address] Jefferson Sosa MD [address] [place] [address] documented as of this encounter Procedures Procedure Name Priority Date/Time Associated Diagnosis Comments VASC US LOWER EXTREMITY VENOUS DUPLEX BILATERAL Routine 08/19/2023 3:18 PM EDT documented in this encounter Results * VASC US Lower Extremity Venous Duplex Bilateral (08/19/2023 3:18 PM EDT) 08/19/2023 3:18 PM EDT Narrative [facility] - 08/25/2023 2:32 PM EDT ? [facility] ?[address] ?[place] [address] ? Ultrasound Report ? Signed ? Patient: Crystal Avila I ?MR# ?? : [id number] ? : 1945 ?Acct:[id number] ? Age/Sex: 78 / F ?ADM Date: 08/19/23 ? Loc: HO.US ? Attending Dr: Saad Michaels MD ? Ordering Physician: SAAD MICHAELS MD ?? Date of Service: 08/19/23 ?? Procedure(s): US venous duplex LE BI ?? Accession Number(s): [id number] ? cc: SAAD MICHAELS MD; Jefferson Sosa [...] thrombosis. ?? There is a simple ?? Omya's cyst in the popliteal fossa measuring 3.4 [...] 1428 ? DD/ 1518 ? TD/TT: ? Bookstore Clerk: ? Procedure Note Ceasar Zepeda - 08/25/[address] [address] Ultrasound Report Signed Patient: Crystal Avila IMR# : [id number] : 8Acct:[id number] Age/Sex: 78 / FADM Date: 08/19/23 Loc: HO.US Attending Dr: Saad Michaels MD Ordering Physician: SAAD MICHAELS MD Date of Service: 08/19/23 Procedure(s): US venous duplex LE BI Accession Number(s): [id number] cc: SAAD MICHAELS MD; Jefferson Sosa MD [...] in OV> 08/25/23 1428 DD/ 1518 TD/TT: Bookstore Clerk: us Saad Michaels MD CV VASCULAR PROCEDURES Final Res ult [facility] [address] [place] [phone] documented in this encounter Visit Diagnoses Diagnosis Memory disturbance- Primary Memory loss documented in this encounter Care Teams Medical Laboratory Technical Officer Relationship Specialty Start Date End Date Jefferson Sosa MD [address] [place] [phone] PCP - General Internal Medicine 05/17/13 documented as of this encounter
--- OUTSIDE RECORDS SUMMARY | 2024-08-23 13:48 | XMS_ITS | Encounter Summary ---
Author Organization [employer] Address [address] [facility] 7t [place] [address] Care Team Providers Care Pcas Name Role Phone Jefferson Sosa MD Primary Care Provider Reason for Visit * Reason Comments Med Refill Encounter Details Date Type Department Care Team ([facility] st Contact Info) Description 08/23/2024 Refill [facility] MED & PEDS [address] [place] [address] Jefferson Sosa MD [address] [place] [address] Depressive disorder Social History Tobacco Use Types Packs/Day Years [...] EDT Office Visit [facility] MED & PEDS [address] [place] [address] Jefferson Sosa MD [address] [place] [address] documented as of this encounter Visit Diagnoses Diagnosis Depressive disorder Depressive disorder, not elsewhere classified documented in this encounter Additional Health Concerns Assessment Noted Time PHQ-9 Depression Total Score: 0 10/01/19 24 3:56 PM EDT documented as of this encounter Care Teams Pcas Relationship Specialty Start Date End Date Jefferson Sosa MD [address] [place] [address] PCP - General Internal Medicine 05/17/13 documented as of this encounter
--- OUTSIDE RECORDS SUMMARY | 2024-08-23 13:48 | XMS_ITS | Encounter Summary ---
Author Organization [employer] Address [address] [facility] 7t [place] [address] Care Team Providers Care Table Games Dealer Name Role Phone Jefferson Sosa MD Primary Care Provider Reason for Visit * Reason Onset Date Comments Results 08/22/2024 Encounter Details Date Type Department Care Team ([facility] st Contact Info) Description 08/22/2024 Telephone C [facility] MED [facility] PEDS [address] [place] [address] Jefferson Sosa MD [address] [place] [address] Results Social History Tobacco Use Types Packs/Day [...] Description 12/04/2024 3:15 PM EDT Office Visit [facility] MED & PEDS [address] [place] [address] Jefferson Sosa MD [address] [place] [address] documented as of this encounter Visit Diagnoses Not on filedocumented in this encounter Additional Health Concerns Assessment Noted Time PHQ-9 Depression Total Score: 0 10/01/19 24 3:56 PM EDT documented as of this encounter Care Teams Table Games Dealer Relationship Specialty Start Date End Date Jefferson Sosa MD [address] [place] [address] PCP - General Internal Medicine 05/17/13 documented as of this encounter
--- OUTSIDE RECORDS SUMMARY | 2024-08-23 13:48 | XMS_ITS | Clinical Summary ---
Author Organization [employer] [facility] Address [address] [facility] 7t [place] [address] Care Team Providers Care Lasting Machine Operator Hand Method Name Role Phone Jefferson Sosa MD Primary Care Provider [phone] Allergies No known active allergies Medications famotidine [...] Encounters Date Type Department Care Team Description 08/23/2024 Refill [facility] MED & [facility] [address] [place] [address] Jefferson Sosa MD Depressive disorder 08/22/2024 Telephone [facility] MED & PEDS [address] [place] [address] Jefferson Sosa MD Results 08/18/2024 1:30 PM EDT Office Visit [facility] MED & PED[facility] [address] [place] [address] Jefferson Sosa MD Microcytic anemia (Primary Dx); Hypoalbuminemia; Right hip pain; Closed subtrochanteric fracture of hip, right, initial encounter ([facility]) 08/18/2024 Travel 08/11/[address] [address] Perri Pinto, PharmD 08/11/[address] [address] Jefferson Sosa MD Call Back Request 08/10/2024 Patient Outreach [address] [address] Jefferson Sosa MD Transition Of Care (Tcm) (HDF scheduled) 08/07/2024 Telephone [facility] MED & PED[facility] [address] [place] [address] Jefferson Sosa MD Chart Prep 07/12/2024 Orders Only [facility] External Provider, [facility] 07/03/2024 Refill [facility] MED & PED[facility] [address] [place] [address] Jefferson Sosa MD Vitamin D deficiency; Vitamin B12 deficiency 06/30/2024 Refill [facility] MED & PEDS [address] [place] [address] Jefferson Sosa MD Depressive disorder 06/22/2024 Telephone [facility] MEDICINE [address] [place] [address] Jefferson Sosa MD Durable Medical Equipment 06/13/2024 Telephone [facility] [address] [facility] [place] [address] Jefferson Sosa MD Nurse Triage from Last [...] is your housing situation today? I have carlorene dang 08/18/[address] you [...] Description 12/04/2024 3:15 PM EDT Office Visit [facility] CHC MED & PEDS [address] [place] [address] Jefferson Sosa MD [address] [place] [address] Health Maintenance Due Date Last Done Comments [...] 09/20/2024 09/20/2014 Depression Screening 09/30/2024 10/01/2023, 10/01/19 24 Tobacco Screening 01/06/2025 01/07/2024 Lipid Panel 08/07/2025 [...] EDT) Sodium 140 135 - 145 mmol/L [facility] Potassium 4.1 3.3 - 5.1 mmol/L [facility] Chloride 104 96 - 108 mmol/L [facility] Carbon Dioxide 27 22 - 29 mmol/L [facility] Anion Gap 13 12 - 20 [facility] Urea Nitrogen (BUN) 25(H) 9 - 16 mg/dL [facility] Creatinine, Serum 1.03 0.5 - 1.4 mg/dL [facility] Estimated Glomerular Filt Rate 52 [facility] Comment:Chronic Kidney Disea se: Estimated GFR < 60 mL/min/1.80t2Fxbonj Kidney Disease: Estimated GFR < 15 mL/min/1.73m2 Glucose 87 60 - 115 mg/dL [facility] Calcium 9.5 8.4 - 10.2 mg/dL [facility] Bilirubin, Total 0.3 0.0 - 1.0 mg/dL [facility] Aspartate Amino Transferase 18 5 - 31 U/L [facility] Alanine Aminotransferase 14 0 - 31 U/L [facility] Total Protein 8.2(H) 6.5 - 8.0 g/dL [facility] Albumin Level 3.9 3.5 - 5.0 g/dL [facility] Alkaline Phosphatase 133(H) 39 - 117 U/L [facility] Blood Venous blood specimen / Unknown 08/18/2024 2:44 PM EDT 08/18/2024 5:41 PM EDT us Jefferson Sosa MD LAB BLOOD ORDERABLES Final Result [facility] [address] [place] [address] [phone] * (ABNORMAL) CBC auto differential (08/18/2024 2:40 PM EDT) [facility] White Blood Count 5.2 4.8 - 10.8 X10*3/uL [facility] Red Blood Count 3.44(L) 4.20 - 5.50 X10*6/uL [facility] Hemoglobin 10.2(L) 12.0 - 16.0 g/dl [facility] Hematocrit 32.7(L) 37.0 - 47.0 % [facility] Mean Corpuscular Volume 95.1 80.0 - 98.0 fL [facility] Mean Corpuscular Hemoglobin 29.7 27.0 - 33.0 pg [facility] Mean Corpuscular HGB Conc 31.2 31.0 - 35.0 g/dl [facility] Red Cell Distribution Width 15.3 11.0 - 16.0 % [facility] Platelet Count 258 160 - 400 X10*3/uL [facility] Mean Platelet Volume 10.6 9.4 - 12.3 fL [facility] Neutrophils Percent Auto 77.2(H) 45 - 73 % [facility] Imm Gran Pct Auto 0.4 0.0 - 0.4 % [facility] Lymphocytes Percent Auto 15.0(L) 20 - 40 % [facility] Monocytes Percent Auto 5.6 2 - 11 % [facility] Eosinophils Percent Auto 1.4 0 - 4 % [facility] Basophils Percent Auto 0.4 0 - 2 % [facility] NRBC Pct Auto 0.0 0.0 - 0.2 /100WBC [facility] Neutrophils Absolute Auto 4.0 2.0 - 8.3 x10*3/uL [facility] Imm Gran Abs Auto 0.02 0.00 - 0.03 X10*3/uL [facility] Lymphocytes Absolute Auto 0.8(L) 1.2 - 4.9 X10*3/uL [facility] Monocytes Absolute Auto 0.3 0.1 - 1.2 X10*3/uL [facility] Eosinophils Absolute Auto 0.1 0.0 - 0.4 X10*3/uL [facility] Basophils Absolute Auto 0.0 0.0 - 0.2 X10*3/uL [facility] NRBC Abs Auto 0.000 0.0 - 0.012 X10*3/uL [facility] Blood Venous blood specimen / Unknown 08/18/2024 2:40 PM EDT 08/18/2024 5:41 PM EDT us Jefferson Sosa MD LAB BLOOD ORDERABLES Final Result [facility] [address] [place] [address] [phone] * FL Guidance in OR (07/13/2024 4:50 PM EST) Anatomical Region Laterality Modality X-Ray Angiograph y 07/13/2024 4:50 PM EST Narrative 07/14/2024 8:38 AM EST ? [facility] ?[address] ?[place] [address] ? Fluoroscopy Report ? Signed ? Patient: Crystal Avila I ?MR# ?? : [id number] ? : 1945 ?Acct:[id number] ? Age/Sex: 79 / F ?ADM Date: 07/12/24 ? Loc: HO.S3 ?378-1 ? Attending Dr: Dhiraj iPmentel MD ? Ordering Physician: Doe Oakes MD ?? Date of Service: 07/13/24 ?? Procedure(s): FL guidance in OR ?? Accession Number(s): [id number] ? cc: Jefferson Sosa MD; Deo Oakes [...] MD in OV> ?07/14/24 0836 ? DD/ ? TD/TT: 07/13/24 1723 ? It Security Consulting Director: ? Procedure Note Katelyn, Image - 07/14/2024 [place] [phone] Fluoroscopy Report Signed Patient: Crystal Avila IMR# : [id number] : 8Acct:[id number] Age/Sex: 79 / FADM Date: 07/12/24 Loc: .S3 378-[address]: Dhiraj Pimentel MD Ordering Physician: Deo Oakes MD Date of Service: 07/13/24 Procedure(s): FL guidance in OR Accession Number(s): [id number] cc: Jefferson Sosa MD; Deo Oakes MD [...] 07/14/24 0836 DD/ 1650 TD/TT: 07/13/24 1723 It Security Consulting Director: [facility] External Provider IMG IR PROCEDURES Final [...] ?? Sherif CULVER et al. MARKUS. 2013;310(19): 1275-6208 ?? (http://[email or web address].Second [email or web address] Playbook/faq/BVE905) Non-HDL Cholesterol 98 <130 mg/dL (calc) [facility] Comment: For patients with diabetes plus 1 major ASCVD risk ?? factor, treating to a non-HDL-C goal of <100 mg/dL ?? (LDL-C of <70 mg/dL) is considered a therapeutic ?? option. Triglycerides 84 <150 mg/dL [facility] 08/07/2020 8:22 AM EDT us Jefferson Sosa MD LAB BLOOD ORDERABLES Final Result [facility] [address] from Last 3 Months or Most Recently Relevant to Health Maintenance Insurance [address] [place] [id number] [facility] [place] [facility] RESIDENTIAL OPTIONS (HMO D-SNP) Advance Directives Documents on File Type Date Recorded Patient Sociocultural Anthropology Professor Expl anation Advance Directives and Livin g Will 10/05/2023 2:44 PM HCP Care Teams Lasting Machine Operator Hand Method Relationship Specialty Start Date End Date Jefferson Sosa MD [address] [place] [phone] PCP - General Internal Medicine 05/17/13
--- OUTSIDE RECORDS SUMMARY | 2024-08-23 13:48 | XMS_ITS | Encounter Summary ---
Author Organization [employer] Address [address] [facility] 7t [place] [address] Care Team Providers Care Extrusion Machine Operator Name Role Phone Jefferson Sosa MD Primary Care Provider Encounter Details Date Type Department Care Team (Latest Contact Info) Description 08/18/2024 1:30 PM EDT Office Visit [facility] CHC MED & PEDS [address] [place], [place] [phone] Jefferson Sosa MD [address] [place] [address] Microcytic anemia (Primary Dx); Hypoalbuminemia; Right hip pain; Closed subtrochanteric fracture of hip, right, initial encounter ([facility]) Social History Tobacco Use Types Packs/Day Years [...] of PRBC. PT was recommended. Discharged to [facility] on oxycodone and Tylenol for pain control and enoxaparin forDVT prophylaxis for 6 weeks from the date of surgery. Ms Crystal Schuler was reevaluated at [facility] by [facility] on July 28the [...] her niece Kathie living with her. Her TERRITORY SALES MANAGER hours have increased to 32 hours a week now. Patient came to the office today's visit with her daughter and her niece who is her TERRITORY SALES MANAGER and they take turn to be with Mrs. Crystal Schuler to prevent her from falling. She has been eating more lately. She has received a visit from [facility] yesterday and will receive another [...] subtrochanteric fracture of hip, right, initial encounter ([facility]) Comments: Follow-up with Ortho as scheduled Patient will need a repeat x-ray to assess stability documented in this encounter Plan of Treatment Upcoming Encounters Date Type Department Care Team (Late st Contact Info) Description 12/04/2024 3:15 PM EDT Office Visit [facility] MED & PEDS [address] [place], [place] [phone] Jefferson Sosa MD [address] [place] [address] documented as of this encounter Procedures Procedure Name Priority Date/Time Associated Diagnosis Comments COMPREHENSIVE METABOLIC PANEL Routine 08/18/2024 2:44 PM EDT Hypoalbuminemia CBC WITH AUTO DIFFERENTIAL Routine 08/18/2024 2:40 PM EDT Microcytic anemia documented in this encounter Results * (ABNORMAL) Comprehensive Metabolic Panel (08/18/2024 2:44 PM EDT) Sodium 140 135 - 145 mmol/L [facility] Potassium 4.1 3.3 - 5.1 mmol/L [facility] Chloride 104 96 - 108 mmol/L [facility] Carbon Dioxide 27 22 - 29 mmol/L [facility] Anion Gap 13 12 - 20 [facility] Urea Nitrogen (BUN) 25(H) 9 - 16 mg/dL [facility] Creatinine, Serum 1.03 0.5 - 1.4 mg/dL [facility] Estimated Glomerular Filt Rate 52 [facility] Comment:Chronic Kidney Disea se: Estimated GFR < 60 mL/min/1.15e7Hlyptg Kidney Disease: Estimated GFR < 15 mL/min/1.73m2 Glucose 87 60 - 115 mg/dL [facility] Calcium 9.5 8.4 - 10.2 mg/dL [facility] Bilirubin, Total 0.3 0.0 - 1.0 mg/dL [facility] Aspartate Amino Transferase 18 5 - 31 U/L [facility] Alanine Aminotransferase 14 0 - 31 U/L [facility] Total Protein 8.2(H) 6.5 - 8.0 g/dL [facility] Albumin Level 3.9 3.5 - 5.0 g/dL [facility] Alkaline Phosphatase 133(H) 39 - 117 U/L [facility] Blood Venous blood specimen / Unknown 08/18/2024 2:44 PM EDT 08/18/2024 5:41 PM EDT us Jefferson Sosa MD LAB BLOOD ORDERABLES Final Result [facility] [address] [place] [phone] * (ABNORMAL) CBC auto differential (08/18/2024 2:40 PM EDT) White Blood Count 5.2 4.8 - 10.8 X10*3/uL [facility] Red Blood Count 3.44(L) 4.20 - 5.50 X10*6/uL [facility] Hemoglobin 10.2(L) 12.0 - 16.0 g/dl [facility] Hematocrit 32.7(L) 37.0 - 47.0 % [facility] Mean Corpuscular Volume 95.1 80.0 - 98.0 fL [facility] Mean Corpuscular Hemoglobin 29.7 27.0 - 33.0 pg [facility] Mean Corpuscular HGB Conc 31.2 31.0 - 35.0 g/dl [facility] Red Cell Distribution Width 15.3 11.0 - 16.0 % [facility] Platelet Count 258 160 - 400 X10*3/uL [facility] Mean Platelet Volume 10.6 9.4 - 12.3 fL [facility] Neutrophils Percent Auto 77.2(H) 45 - 73 % [facility] Imm Gran Pct Auto 0.4 0.0 - 0.4 % [facility] Lymphocytes Percent Auto 15.0(L) 20 - 40 % [facility] Monocytes Percent Auto 5.6 2 - 11 % [facility] Eosinophils Percent Auto 1.4 0 - 4 % [facility] Basophils Percent Auto 0.4 0 - 2 % [facility] NRBC Pct Auto 0.0 0.0 - 0.2 /100WBC [facility] Neutrophils Absolute Auto 4.0 2.0 - 8.3 x10*3/uL [facility] Imm Gran Abs Auto 0.02 0.00 - 0.03 X10*3/uL [facility] Lymphocytes Absolute Auto 0.8(L) 1.2 - 4.9 X10*3/uL [facility] Monocytes Absolute Auto 0.3 0.1 - 1.2 X10*3/uL [facility] Eosinophils Absolute Auto 0.1 0.0 - 0.4 X10*3/uL [facility] Basophils Absolute Auto 0.0 0.0 - 0.2 X10*3/uL [facility] NRBC Abs Auto 0.000 0.0 - 0.012 X10*3/uL [facility] Blood Venous blood specimen / Unknown 08/18/2024 2:40 PM EDT 08/18/2024 5:41 PM EDT us Jefferson Sosa MD LAB BLOOD ORDERABLES Final Result [facility] [address] [place] [address] [phone] documented in this encounter Visit Diagnoses Diagnosis Microcytic anemia- Primary Unspecified iron deficiency anemia Hypoalbuminemia Other disorders of plasma protein metabolism Right hip pain Pain in joint, pelvic region and thigh Closed subtrochanteric fracture of hip, right, initial encounter ([facility]) documented in this encounter Additional Health Concerns Assessment Noted Time PHQ-9 Depression Total Score: 0 10/01/19 24 3:56 PM EDT documented as of this encounter Care Teams Extrusion Machine Operator Relationship Specialty Start Date End Date Jefferson Sosa MD [address] [place] [address] PCP - General Internal Medicine 05/17/13 documented as of this encounter
--- OUTSIDE RECORDS SUMMARY | 2024-08-23 13:48 | XMS_ITS | Encounter Summary ---
Author Organization [employer] [facility] Address [address] [place] [address] [address] [place] [address] Care Team Providers Care Bumper Machine Operator Name Role Phone Jefferson Sosa MD Primary Care Provider Reason for Visit * Reason Comments Med Refill Encounter Details Date Type Department Care Team ([facility] Contact Info) Description 10/19/2022 Refill [facility] MED & PEDS [address] [place] [address] Jefferson Sosa MD [address] [place] [address] Epigastric pain; Vitamin D deficiency Social History [...] Upcoming Encounters Date Type Department Care Team ([facility] Contact Info) Description 12/04/2024 3:15 PM EDT Office Visit [facility] MED & PEDS [address] [place] [address] Jefferson Sosa MD [address] [place] [address] documented as of this encounter Visit Diagnoses Diagnosis Epigastric pain Abdominal pain, epigastric Vitamin D deficiency documented in this encounter Care Teams Bumper Machine Operator Relationship Specialty Start Date End Date Jefferson Sosa MD [address] [place] [address] PCP - General Internal Medicine 05/17/13 documented as of this encounter
--- OUTSIDE RECORDS SUMMARY | 2024-08-23 13:48 | XMS_ITS | Encounter Summary ---
Author Organization [employer] [facility] Address [address] [facility] 7t [place] [address] Care Team Providers Care Supervisor Liquid Yeast Name Role Phone Jefferson Sosa MD Primary [...] 12/04/2024 3:15 PM EDT Office Visit [facility] MED [facility] PEDS [address] [place] [address] Jefferson Sosa MD [address] [place] [address] documented as of this encounter Visit Diagnoses Not on filedocumented in this encounter Additional Health Concerns Assessment Noted Time PHQ-9 Depression Total Score: 0 10/01/19 24 3:56 PM EDT documented as of this encounter Care Teams Supervisor Liquid Yeast Relationship Specialty Start Date End Date Jefferson Sosa MD [address] [place] [address] PCP - General Internal Medicine 05/17/13 documented as of this encounter
--- OUTSIDE RECORDS SUMMARY | 2024-08-23 13:48 | XMS_ITS | Encounter Summary ---
Author Organization [employer] Address [address] [facility] [address] [place] [address] Care Team Providers Care Woodworking Machine Operator Name Role Phone Jefferson Sosa MD Primary Care Provider Encounter Details Date Type Department Care Team (Late st Contact Info) Description 02/14/2024 Orders Only [facility] [address] [place] [address] Jefferson Sosa MD [address] [place] [address] Social History Tobacco Use Types Packs/Day Years [...] Description 12/04/2024 3:15 PM EDT Office Visit [facility] MED & PEDS [address] [place] [address] Jefferson Sosa MD [address] [place] [address] documented as of this encounter Visit Diagnoses Not on filedocumented in this encounter Additional Health Concerns Assessment Noted Time PHQ-9 Depression Total Score: 0 10/01/19 24 3:56 PM EDT documented as of this encounter Care Teams Woodworking Machine Operator Relationship Specialty Start Date End Date Jefferson Sosa MD [address] [place] [address] PCP - General Internal Medicine 05/17/13 documented as of this encounter
--- OUTSIDE RECORDS SUMMARY | 2024-08-23 13:49 | XMS_ITS | Encounter Summary ---
Author Organization [employer] Address [address] [facility] [address] 7[address] [place] [address] Care Team Providers Care Philosophy Instructor Name Role Phone Jefferson Sosa MD Primary Care Provider Reason for Visit * Reason Onset Date Comments Durable Medical Equipment 02/10/2024 Encounter Details Date Type Department Care Team (Late st Contact Info) Description 02/10/2024 Telephone [facility] MEDICINE [address] [place] [address] Jefferson Sosa MD [address] [place], [place] [phone] Durable Medical Equipment Social History Tobacco Use [...] 02/15/2024 9:30 AM EDT Rx generated through [employer] and pending PCP signature. Informed [facility] of rx in process. [facility] agrees with plan. * Telephone Encounter - Sharon Pinto LPN - 02/11/2024 12:41 PM EDT Please review message below and advise . If agreed please review Dx for this request , Thank you Tc from [facility] requesting arm rest for toilet that rest on the toilet bowl. Pt would like that faxedbailey [employer]. If any questions you can contact Mason at [phone]. [facility] Fac: [phone] * Telephone Encounter - Vinayak Schuler - 02/10/2024 11:42 AM EDT Tc from Mason requesting arm rest for toilet that rest on the toilet bowl. Pt would like that faxedto [employer]. If any questions you can contact Mason at [phone]. [facility] Fac: [phone] documented in this encounter Plan of Treatment Upcoming Encounters Date Type Department Care Team (Late st Contact Info) Description 12/04/2024 3:15 PM EDT Office Visit [facility] MED & PEDS [address] [place] [address] Jefferson Sosa MD [address] [place] [address] documented as of this encounter Visit Diagnoses Not on filedocumented in this encounter Additional Health Concerns Assessment Noted Time PHQ-9 Depression Total Score: 0 10/01/19 3:56 PM EDT documented as of this encounter Care Teams Philosophy Instructor Relationship Specialty Start Date End Date Jefferson Sosa MD [address] [place] [address] PCP - General Internal Medicine 05/17/13 documented as of this encounter
--- OUTSIDE RECORDS SUMMARY | 2024-08-23 13:49 | XMS_ITS | Encounter Summary ---
Author Organization [email or web address] Address [address] [place] [address] Care Team Providers Care Deputy District Customs Director Name Role Phone Jefferson Sosa MD Primary Care Provider Reason for Visit * Reason Onset Date Comments FYI 11/10/2023 Encounter Details Date Type Department Care Team (Late st Contact Info) Description 11/10/2023 Telephone [facility] MEDICINE [address] [place] [address] Jefferson Sosa MD [address] [place] [address] FY Social History Tobacco Use Types Packs/Day [...] 3:22 PM EDT Tc from Rob at [facility] calling to report the patient had a [...] 12/04/2024 3:15 PM EDT Office Visit [facility] MED & PEDS [address] [place] [address] Jefferson Sosa MD [address] [place] [address] documented as of this encounter Visit Diagnoses Not on filedocumented in this encounter Additional Health Concerns Assessment Noted Time PHQ-9 Depression Total Score: 0 10/01/19 3:56 PM EDT documented as of this encounter Care Teams Deputy District Customs Director Relationship Specialty Start Date End Date Jefferson Sosa MD [address] [place] [address] PCP - General Internal Medicine 05/17/13 documented as of this encounter
--- OUTSIDE RECORDS SUMMARY | 2024-08-23 13:49 | XMS_ITS | Encounter Summary ---
Author Organization [employer] Address [address] [place] [address] Care Team Providers Care Assistant Store Manager Trainee Name Role Phone Jefferson Sosa MD Primary Care Provider Reason for Visit * Reason Onset Date Comments Order for VNA Services 01/28/2024 Encounter Details Date Type Department Care Team ([facility] st Contact Info) Description 01/28/2024 Telephone [facility] MEDICINE [address] [place] [address] Jefferson Sosa MD [address] [place] [address] Order for VNA Services Social History Tobacco [...] - 01/28/2024 8:12 AM EDT Tc from [facility] with [facility] requesting a New order for VNA Services due to pt getting a biopsy done for some masses and is requiring services. documented in this encounter Plan of Treatment Upcoming Encounters Date Type Department Care Team (Late st Contact Info) Description 12/04/2024 3:15 PM EDT Office Visit [facility] MED & PEDS [address] [place] [address] Jefferson Sosa MD [address] [place] [address] documented as of this encounter Visit Diagnoses Not on filedocumented in this encounter Additional Health Concerns Assessment Noted Time PHQ-9 Depression Total Score: 0 10/01/19 3:56 PM EDT documented as of this encounter Care Teams Assistant Store Manager Trainee Relationship Specialty Start Date End Date Jefferson Sosa MD [address] [place] [address] PCP - General Internal Medicine 05/17/13 documented as of this encounter
--- OUTSIDE RECORDS SUMMARY | 2024-08-23 13:49 | XMS_ITS | Encounter Summary ---
Author Organization [facility] Address [address] [facility] [address] [place] [address] Care Team Providers Care Mother Repairer Name Role Phone Jefferson Sosa MD Primary Care Provider Encounter Details Date Type Department Care Team ([facility] Contact Info) Description 11/11/2022 Abstract [facility] MEDICINE [address] [place], [place] [phone] Jefferson Sosa MD [address] [place] [address] Social History Tobacco Use Types Packs/Day Years [...] Upcoming Encounters Date Type Department Care Team ([facility] Contact Info) Description 12/04/2024 3:15 PM EDT Office Visit [facility] MED & PEDS [address] [place] [address] Jefferson Sosa MD [address] [place], [place] [phone] documented as of this encounter Visit Diagnoses Not on filedocumented in this encounter Care Teams Mother Repairer Relationship Specialty Start Date End Date Jefferson Sosa MD [address] [place] [address] PCP - General Internal Medicine 05/17/13 documented as of this encounter
--- OUTSIDE RECORDS SUMMARY | 2024-08-23 13:49 | XMS_ITS | Encounter Summary ---
Author Organization [employer] Address [address] [place] [address] Care Team Providers Care Bi Developer Name Role Phone Jefferson Sosa MD Primary Care Provider Reason for Visit * Reason Onset Date Comments ER Follow-up 11/26/2023 Encounter Details Date Type Department Care Team ([facility] st Contact Info) Description 11/26/2023 Telephone [facility] MEDICINE [address] [place] [address] Jefferson Sosa MD [address] [place], [place] [phone] ER Follow-up Social History Tobacco Use Types [...] not set up. Call to yanni arango, AIR TRAFFIC SUPERVISOR not with pt, gave daughter number. No answer LVM to return callto [facility]. * Telephone Encounter - Timothy Ovalles - 11/26/2023 11:19 AM EDT Patient calling to report ED visit on : Date: 11/24 Hospital: [facility] Seen for: Feet swelling and chest pain Patient advised will forward to team nurse for follow up documented in this encounter Plan of Treatment Upcoming Encounters Date Type Department Care Team (Late st Contact Info) Description 12/04/2024 3:15 PM EDT Office Visit [facility] MED & PEDS [address] [place] [address] Jefferson Sosa MD [address] [place] [address] documented as of this encounter Visit Diagnoses Not on filedocumented in this encounter Additional Health Concerns Assessment Noted Time PHQ-9 Depression Total Score: 0 10/01/19 3:56 PM EDT documented as of this encounter Care Teams Bi Developer Relationship Specialty Start Date End Date Jefferson Sosa MD [address] [place] [address] PCP - General Internal Medicine 05/17/13 documented as of this encounter
--- OUTSIDE RECORDS SUMMARY | 2024-08-23 13:49 | XMS_ITS | Encounter Summary ---
Author Organization [facility] Address [address] [place] [address] [address] [place] [address] Care Team Providers Care Forcer Maker Name Role Phone Jefferson Sosa MD Primary Care Provider Reason for Visit * Reason Comments Med Refill Encounter Details Date Type Department Care Team ([facility] Contact Info) Description 01/01/2023 Refill [facility] & PEDS [address] [place] [address] Jefferson Sosa MD [address] [place] [address] Seasonal allergic rhinitis due to other allergic [...] Upcoming Encounters Date Type Department Care Team ([facility] Contact Info) Description 12/04/2024 3:15 PM EDT Office Visit [facility] MED & PEDS [address] [place] [address] Jefferson Sosa MD [address] [place] [address] documented as of this encounter Visit Diagnoses Diagnosis Seasonal allergic rhinitis due to other allergic trigger Other iron deficiency anemia documented in this encounter Care Teams Forcer Maker Relationship Specialty Start Date End Date Jefferson Sosa MD [address] [place] [address] PCP - General Internal Medicine 05/17/13 documented as of this encounter
--- OUTSIDE RECORDS SUMMARY | 2024-08-23 13:49 | XMS_ITS | Encounter Summary ---
Author Organization [facility] Address [address] [place] [address] [address] [place] [address] Care Team Providers Care Build Engineer Name Role Phone Jefferson Sosa MD Primary Care Provider Reason for Visit * Reason Comments Med Refill Encounter Details Date Type Department Care Team ([facility] Contact Info) Description 12/30/2022 Refill [facility] MED & PEDS [address] [place] [address] Jefferson Sosa MD [address] [place] [address] Other iron deficiency anemia; Seasonal allergic rhinitis [...] Upcoming Encounters Date Type Department Care Team ([facility] Contact Info) Description 12/04/2024 3:15 PM EDT Office Visit [facility] MED & PEDS [address] [place] [address] Jefferson Sosa MD [address] [place] [address] documented as of this encounter Visit Diagnoses Diagnosis Other iron deficiency anemia Seasonal allergic rhinitis due to other allergic trigger documented in this encounter Care Teams Build Engineer Relationship Specialty Start Date End Date Jefferson Sosa MD [address] [place] [id number] PCP - General Internal Medicine 05/17/13 documented as of this encounter
== END 2024-08-23 11:49 | disposition home or self-care (01) ==
LOC: HO.HOS 11:22
DX: S72.001A Fracture of unspecified part of neck of right femur, initial encounter for closed fracture (principal)
CPT/HCPCS: 99024

== ENCOUNTER → 2024-08-23 11:24 | Outpatient (BNV) | payer OTHER, SELFPAY | PROVIDERS: Visit Provider Radiology Diagnostic Radiology | DX: S72.141B Displaced intertrochanteric fracture of right femur, initial encounter for open fracture type I or II (principal) | CPT/HCPCS: 73502 ==

== ENCOUNTER 2024-10-04 08:02 | Outpatient (REF) | payer OTHER, SELFPAY ==
--- NOTE | ~2024-10-04 | XR_ITS ---
EXAMINATION: XR HIP 2 OR MORE VIEWS RIGHT HISTORY: M25.551 - Pain in right hip COMPARISON: Comparison is made with the prior examination dated 08/23/2024. FINDINGS: A single AP view of the pelvis and four views of the right hip are submitted. The bones are osteopenic. The patient is again noted to be status post internal fixation of a comminuted intertrochanteric fracture of the femur with a compression screw and intramedullary ruel. Hardware is intact. Callus formation is seen at the fracture site consistent with healing. The joint space is maintained. There are vascular calcifications. XR/XR hip RT min 2V IMPRESSION: Osteopenia. Healing internally fixed comminuted intertrochanteric fracture of the right femur. Electronically signed by: Dionicio Goodman MD 10/04/2024 02:24 PM EDT
--- OUTSIDE RECORDS SUMMARY | 2024-10-04 08:09 | XMS_ITS | Encounter Summary ---
Author Organization [employer] Address [address] [address] [place] [address] Care Team Providers Care Clinic Office Manager Name Role Phone Jefferson Sosa MD Primary Care Provider [phone] Encounter Details Date Type Department Care Team (Late st Contact Info) Description 07/23/2023 Orders Only [facility] MED & PEDS [address] [place], [place] [phone] Jefferson Sosa MD [address] [place] [address] Memory disturbance (Primary Dx) Social History Tobacco [...] Description 12/04/2024 3:15 PM EDT Office Visit [facility] MED & PEDS [address] [place] [address] Jefferson Sosa MD [address] [place] [address] documented as of this encounter Procedures Procedure Name Priority Date/Time Associated Diagnosis Comments [facility] LOWER EXTREMITY VENOUS DUPLEX BILATERAL Routine 08/19/2023 3:18 PM EDT documented in this encounter Results * [facility] Lower Extremity Venous Duplex Bilateral (08/19/2023 3:18 PM EDT) 08/19/2023 3:18 PM EDT Narrative [facility] - 08/25/2023 2:32 PM EDT ? [facility] ?[address] ?[place] [address] ? Ultrasound Report ? Signed ? Patient: Crystal Avila I ?MR# ?? : [id number] ? : 1945 ?Acct:[id number] ? Age/Sex: 78 / F ?ADM Date: 08/19/23 ? Loc: HO.US ? Attending Dr: Saad Michaels MD ? Ordering Physician: SAAD MICHAELS MD ?? Date of Service: 08/19/23 ?? Procedure(s): US venous duplex LE BI ?? Accession Number(s): [id number] ? cc: SAAD MICHAELS MD; Jefferson Sosa [...] 1428 ? DD/ 1518 ? TD/TT: ? Screw Machine Operator: ? Procedure Note Ceasar Zepeda - 08/25/[address] [address] Ultrasound Report Signed Patient: Crystal Avila IMR# : [id number] : [id number]:[id number] Age/Sex: 78 / FADM Date: 08/19/23 Loc: HO.US Attending Dr: Saad Michaels MD Ordering Physician: SAAD MICHAELS MD Date of Service: 08/19/23 Procedure(s): US venous duplex LE BI Accession Number(s): [id number] cc: SAAD MICHAELS MD; Jefferson Sosa MD [...] in OV> 08/25/23 1428 DD/ 1518 TD/TT: Screw Machine Operator: us Saad Michaels MD CV VASCULAR PROCEDURES Final Res ult [facility] [address] [place] [address] documented in this encounter Visit Diagnoses Diagnosis Memory disturbance- Primary Memory loss documented in this encounter Care Teams Clinic Office Manager Relationship Specialty Start Date End Date Jefferson Sosa MD [address] [place] [address] PCP - General Internal Medicine 05/17/13 [facility] 09/19/24 documented as of this encounter
== END 2024-10-04 08:03 | disposition home or self-care (01) ==
LOC: HO.HOSX 08:02
DX: M25.551 Pain in right hip (principal); S72.001A Fracture of unspecified part of neck of right femur, initial encounter for closed fracture
CPT/HCPCS: 73502; 99212

== ENCOUNTER 2024-10-04 10:49 | Outpatient (AMB) | payer OTHER, SELFPAY ==
--- NOTE | 2024-10-04 11:03 | MHC.OFFVIS ---
Intake Visit Reasons: PO-right hip IM nail, DOS 07/13/2024-w/xray Intake Note: Crystal is a 79 year old female who presents today for her post operative visit s/p Right hip IMN DOS: 07/13/24. Patient reports that she is dong well, her pain is still present but is improving. Denies numbness and tingling. Allergies No Known Allergies [No Known Allergies*] Allergy (Verified 07/28/24 11:48) HPI HPI PO-right hip IM nail, DOS 07/13/2024-w/xray: Details: Crystal is a 79 year old female who presents today for her post operative visit s/p Right hip IMN DOS: 07/13/24. Patient reports that she is dong well, her pain is still present but is improving. Denies numbness and tingling. 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 Hemoptysis Lymphadenopathy Injury of right knee Elevated blood sugar Chronic renal failure Renal cyst Vitamin deficiency, unspecified Allergic rhinitis Depressive disorder Osteoarthritis Obesity HTN (hypertension) Anemia Surgical History (Updated 07/25/24 @ 00:01 by Background Daemon) History of esophagogastroduodenoscopy (EGD) (~2017) History of section History of liver biopsy (~2021) Family History Father Cancer Mother Cancer Paternal Grandmother Cancer Social History Household Members: Unknown / Unable to assess Housing: Apartment Are you a primary date night caregiver to a significant other at home: No Do you presently have visiting nurse or other home services: Yes Alcohol intake: never Patient Tobacco Use Status: Never used Tobacco service: No Current occupational status: retired and disabled Review of Systems Const All systems reviewed & are unremarkable except as noted in HPI and below Physical Exam Vital Signs: Last Vital Signs Temp 98.1 F 07/15/24 07:23 Pulse 89 07/15/24 07:23 Resp 16 07/15/24 07:23 BP 101/55 L 07/15/24 07:23 Pulse Ox 94 07/15/24 07:23 O2 Del Method Room Air 07/15/24 07:23 O2 Flow Rate 2 07/14/24 07:06 BMI result Body Mass Index 19.5 Extrem Other: Incisions on right hip and leg clean, dry, intact, well healed No evidence of surrounding erythema, ecchymosis No evidence of infection Patient is able to flex and extend the digits of the left foot without difficulty Patient was able to stand and ambulate with a walker Compartments soft, nontender Distal sensation intact Capillary refill brisk Results Reviewed Results Reviewed: X-rays obtained in the office today and independently reviewed by me, Florin Ivy PA-C, demonstrate subtrochanteric fracture of the right hip with all orthopedic hardware in place and in satisfactory clinical alignment with evidence of interval bony healing. Assessment & Plan Assessment & Plan (1) Closed fracture of right hip: Code(s): S72.001A - Fracture of unspecified part of neck of right femur, initial encounter for closed fracture Category: Medical Qualifiers: Encounter type: initial encounter Qualified Code(s): S72.001A - Fracture of unspecified part of neck of right femur, initial encounter for closed fracture Plan 1. Subtrochanteric fracture of right hip status post IM nail DOS 07/13/2024 Patient appears to be recovering well postoperatively Patient was educated about the typical recovery course Patient is educated she can begin to shower once again Patient is educated she should continue working with physical therapy on gait training, range of motion, strengthening of the right hip May continue weight-bearing as tolerated Patient will follow-up 12 weeks with repeat x-rays for reassessment, sooner with any acute concerns Orders: Orders XR hip RT min 2V Today M25.551 - Pain in right hip Coding Level of Care Code Global (79195) Diagnoses Closed fracture of right hip, initial encounter S72.001A Encounter type: initial encounter
== END 2024-10-04 11:28 | disposition home or self-care (01) ==
LOC: HO.HOS 10:49
DX: S72.001A Fracture of unspecified part of neck of right femur, initial encounter for closed fracture (principal)
CPT/HCPCS: 99024

== ENCOUNTER → 2024-10-04 10:53 | Outpatient (BNV) | payer OTHER, SELFPAY | PROVIDERS: Visit Provider Radiology Diagnostic Radiology | DX: M85.88 Other specified disorders of bone density and structure, other site (principal); S72.141A Displaced intertrochanteric fracture of right femur, initial encounter for closed fracture | CPT/HCPCS: 73502 ==

== ENCOUNTER 2024-12-18 08:24 | Outpatient (REF) | payer OTHER, SELFPAY ==
--- NOTE | ~2024-12-18 | XR_ITS ---
EXAMINATION: XR HIP, RIGHT CLINICAL INFORMATION: M25.551 - Pain in right hip COMPARISON: October 04, 2024. TECHNIQUE: AP and cross lateral view of right hip. AP view pelvis. FINDINGS: Status post intramedullary ruel placement throughout the diaphysis of the right femur and anchor transverse femoral head neck screw. Oval traumatic deformity intertrochanteric and proximal diaphysis junction of the femur with callus formation. No gross malalignment. Osteopenia versus osteoporosis. Vascular calcifications. No lytic or blastic lesions. XR/XR hip RT min 2V IMPRESSION: Status post open reduction internal fixation of an intertrochanteric and proximal diaphysis junction fracture right femur. Further healing. Electronically signed by: Timoteo Keys MD 12/18/2024 01:18 PM EDT
--- OUTSIDE RECORDS SUMMARY | 2024-12-19 08:42 | XMS_ITS | Encounter Summary ---
Author Organization [employer] Address 75 [facility] 7t [place] [address] Care Team Providers Care Commissioning Editor Name Role Phone Jefferson Sosa MD Primary Care Provider Encounter Details Date Type Department Care Team (Late st Contact Info) Description 07/23/2023 Orders Only [facility] CHC MED & PEDS [address] [place], [place] [phone] Jefferson Sosa MD 505 [place], [place] [phone] Memory disturbance (Primary Dx) Social History Tobacco [...] Care Team (Late st Contact Info) Description 01/05/2025 8:00 AM EDT Office Visit [facility] ADULT DENTAL [address] [place], [place] [phone] Nate White, DDS [address] [place], [place] [phone] documented as of this encounter Procedures Procedure Name Priority Date/Time Associated Diagnosis Comments [facility] US LOWER EXTREMITY VENOUS DUPLEX BILATERAL Routine 08/19/2023 3:18 PM EDT documented in this encounter Results * VASC US Lower Extremity Venous Duplex Bilateral (08/19/2023 3:18 PM EDT) 08/19/2023 3:18 PM EDT Narrative [facility] - 08/25/2023 2:32 PM EDT [address] [address] Ultrasound Report Signed Patient: Crystal Avila I MR# : [id number] : 1945 Acct:[id number] Age/Sex: 78 / F ADM Date: 08/19/23 Loc: .US Attending Dr: Saad Michaels MD Ordering Physician: SAAD MICHAELS MD Date of Service: 08/19/23 Procedure(s): US venous duplex LE Accession Number(s): [id number] cc: SAAD MICHAELS MD; Jefferson Sosa MD [...] in OV> 08/25/23 1428 DD/ 1518 TD/TT: Powder Blender And Pourer: Procedure Note Donotuseinterpreter, Image - 08/25/2023 [place] [address] Ultrasound Report Signed Patient: Crystal Avila IMR# : [id number] : [id number]:[id number] Age/Sex: 78 / FADM Date: 08/19/23 Loc: HO.US Attending Dr: Saad Michaels MD Ordering Physician: SAAD MICHAELS MD Date of Service: 08/19/23 Procedure(s): US venous duplex LE BI Accession Number(s): [id number] cc: SAAD MICHAELS MD; Jefferson Sosa MD [...] in OV> 08/25/23 1428 DD/ 1518 TD/TT: Powder Blender And Pourer: us Saad Michaels MD CV VASCULAR PROCEDURES Final Res ult [facility] [address] [place] [address] documented in this encounter Visit Diagnoses Diagnosis Memory disturbance- Primary Memory loss documented in this encounter Care Teams Commissioning Editor Relationship Specialty Start Date End Date Jefferson Sosa MD [address] [place] [address] PCP - General Internal Medicine 05/17/13 [facility] 09/19/24 documented as of this encounter
== END 2024-12-18 08:25 | disposition home or self-care (01) ==
LOC: HO.HOSX 08:24
DX: S72.001D Fracture of unspecified part of neck of right femur, subsequent encounter for closed fracture with routine healing (principal); M25.551 Pain in right hip; X58.XXXD Exposure to other specified factors, subsequent encounter
CPT/HCPCS: 73502; 99212

== ENCOUNTER 2024-12-18 11:52 | Outpatient (AMB) | payer OTHER, SELFPAY ==
--- NOTE | 2024-12-18 11:58 | MHC.OFFVIS ---
Vital Signs 12/18/24 11:59 Height 5 ft Weight 100 lb BMI 19.5 Intake Visit Reasons: OV-right hip IM nail, DOS 07/13/2024-w/xray Intake Note: Crystal is a 79 year old female who presents today for follow up with her career placement specialist Kathie status post right hip IMN, DOS: 07/13/[address] Oakes. At her last visit, 10/04/24, patient was notified she could begin to shower and advised to continue working with physical therapy on gait training, range of motion, and strengthening. She was also advised to continue weight-bearing as tolerated. She reports she has pain in the right hip with palpation and after physical therapy. Her caregiver states she occasionally expresses pain on the side after a night of sleep due to her turning. She takes Tylenol for pain however this does not offer much relief. Accompanied by: career placement specialist Allergies No Known Allergies (No Known Allergies*) Allergy (Verified 12/18/24 12:24) HPI HPI OV-right hip IM nail, DOS 07/13/2024-w/xray: Details: Crystal is a 79 year old female who presents today for follow up with her career placement specialist Kathie status post right hip IMN, DOS: 07/13/[address] Oakes. At her last visit, 10/04/24, patient was notified she could begin to shower and advised to continue working with physical therapy on gait training, range of motion, and strengthening. She was also advised to continue weight-bearing as tolerated. She reports she has pain in the right hip with palpation and after physical therapy. Her caregiver states she occasionally expresses pain on the side after a night of sleep due to her turning. She takes Tylenol for pain however this does not offer much relief. 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 Hemoptysis Lymphadenopathy Injury of right knee Elevated blood sugar Chronic renal failure Renal cyst Vitamin deficiency, unspecified Allergic rhinitis Depressive disorder Osteoarthritis Obesity HTN (hypertension) Anemia Surgical History History of esophagogastroduodenoscopy (EGD) (~2017) History of section History of liver biopsy (~2021) Family History Father Cancer Mother Cancer Paternal Grandmother Cancer Social History Household Members: Unknown / Unable to assess Housing: Apartment Are you a primary career placement specialist to a significant other at home: No Do you presently have visiting nurse or other home services: Yes Alcohol intake: never Patient Tobacco Use Status: Never used Tobacco service: No Current occupational status: retired and disabled Review of Systems Const All systems reviewed & are unremarkable except as noted in HPI and below Physical Exam Vital Signs: BMI result Body Mass Index 19.5 Last Vital Signs Temp 98.1 F 07/15/24 07:23 Pulse 89 07/15/24 07:23 Resp 16 07/15/24 07:23 BP 101/55 L 07/15/24 07:23 Pulse Ox 94 07/15/24 07:23 O2 Del Method Room Air 07/15/24 07:23 O2 Flow Rate 2 07/14/24 07:06 BMI result Body Mass Index 19.5 Extrem Other: Incisions on right hip and leg clean, dry, intact, well healed No evidence of surrounding erythema, ecchymosis No evidence of infection Patient is able to flex and extend the digits of the left foot without difficulty Patient was able to stand and ambulate with a walker Compartments soft, nontender Distal sensation intact Capillary refill brisk Results Reviewed Results Reviewed: X-rays obtained in the office today and independently reviewed by me, Florin Ivy PA-C, demonstrate subtrochanteric fracture of the right hip with all orthopedic hardware in place and in satisfactory clinical alignment with evidence of interval bony healing. Assessment & Plan Assessment & Plan (1) Closed fracture of right hip: Code(s): S72.001A - Fracture of unspecified part of neck of right femur, initial encounter for closed fracture Category: Medical Qualifiers: Encounter type: initial encounter Qualified Code(s): S72.001A - Fracture of unspecified part of neck of right femur, initial encounter for closed fracture Plan 1. Subtrochanteric fracture of right hip status post IM nail DOS 07/13/2024 Patient appears to be recovering well postoperatively Patient was educated about the typical recovery course Patient is educated she can begin to shower once again Patient is educated she should continue working with physical therapy on gait training, range of motion, strengthening of the right hip May continue weight-bearing as tolerated Patient will follow-up 6 months with repeat x-rays for reassessment, sooner with any acute concerns Orders: Orders XR hip RT min 2V Today M25.551 - Pain in right hip PT Evaluation and Treatment Today S72.001A - Fracture of unspecified part of neck of right femur, initial encounter for closed fracture Coding Level of Care Code Est Pt Level 3 (11031) Diagnoses Closed fracture of right hip, initial encounter S72.001A Encounter type: initial encounter
[2024-12-18 11:59] VITALS: BMI 19.5
== END 2024-12-18 12:56 | disposition home or self-care (01) ==
LOC: HO.HOS 11:52
DX: S72.001A Fracture of unspecified part of neck of right femur, initial encounter for closed fracture (principal)
CPT/HCPCS: 99213

== ENCOUNTER → 2024-12-18 11:58 | Outpatient (BNV) | payer OTHER, SELFPAY | PROVIDERS: Visit Provider Radiology Diagnostic Radiology | DX: S72.141A Displaced intertrochanteric fracture of right femur, initial encounter for closed fracture (principal) | CPT/HCPCS: 73502 ==

== ENCOUNTER 2025-03-02 14:08 | Emergency (ER) | payer OTHER, SELFPAY ==
--- NOTE | 2025-03-02 14:23 | ED.ABDPAIN ---
HPI - Abdominal Pain General Stated Complaint: Nausea Vomiting Diarrhea Related Data Home Medications ?Medication ?Instructions ?Recorded ?Confirmed cholecalciferol (vitamin D3) 25 1 tab PO DAILY 07/05/21 07/13/24 mcg (1,000 unit) tablet cyanocobalamin (vitamin B-12) 500 1 tab DAILY 07/05/21 07/13/24 mcg tablet cetirizine 10 mg tablet 1 tab PO DAILY PRN Allergy Symptoms 07/23/21 07/13/24 donepezil 5 mg tablet 5 mg PO BEDTIME 02/12/22 07/13/24 ferrous sulfate 325 mg (65 mg 325 mg PO DAILY 05/25/23 07/13/24 iron) tablet mirtazapine 7.5 mg tablet 7.5 mg PO BEDTIME 07/13/24 07/13/24 omeprazole 40 mg capsule,delayed 40 mg PO BID PRN acid 07/13/24 07/13/24 release reflux/heartburn Previous Rx's ?Medication ?Instructions ?Recorded acetaminophen 325 mg tablet 650 mg (2 x 325 mg) PO Q6H PRN 07/14/24 Pain, Mild 1-3,Fever,Headache #60 tabs docusate sodium 100 mg capsule 100 mg PO BID #60 caps 07/14/24 (Colace) enoxaparin 40 mg/0.4 mL 40 mg (0.4 mL) subcut Q24H #40 mL 07/14/24 subcutaneous syringe magnesium hydroxide 400 mg/5 mL 30 ml PO DAILY PRN Constipation 07/14/24 oral suspension (Milk of Magnesia) #30 mL melatonin 3 mg tablet 6 mg (2 x 3 mg) PO BEDTIME PRN 07/14/24 Insomnia #30 tabs naloxone 0.4 mg/mL injection 0.04 mg (0.1 mL) IVPUSH Q5M PRN 07/14/24 solution Excessive sedation or RR < 8 #10 mL oxycodone 5 mg tablet 5 mg PO Q8H PRN pain #12 tabs 07/17/24 famotidine 40 mg tablet 40 mg PO BEDTIME PRN acid 08/23/24 reflux/heartburn #30 tabs Allergies Allergy/AdvReac Type Severity Reaction Status Date / Time No Known Allergies (No Known Allergy Verified 12/18/24 12:24 Allergies*) [facility] Past Medical History Medical History ELIF (iron deficiency anemia) CKD (chronic kidney disease) Sore throat 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 Hemoptysis Lymphadenopathy Injury of right knee Elevated blood sugar Chronic renal failure Renal cyst Vitamin deficiency, unspecified Allergic rhinitis Depressive disorder Osteoarthritis Obesity HTN (hypertension) Anemia Surgical History History of esophagogastroduodenoscopy (EGD) (~2017) History of section History of liver biopsy (~2021) Family History Family History Father Cancer Mother Cancer Paternal Grandmother Cancer Social History Social History Household Members: Unknown / Unable to assess Housing: Apartment Are you a primary post acute care registered nurse to a significant other at home: No Do you presently have visiting nurse or other home services: Yes Alcohol intake: never Patient Tobacco Use Status: Never used Tobacco service: No Current occupational status: retired and disabled Course Course Course Narrative: Rosalie Moss PASSENGER SERVICE SUPERVISOR 03/02 7250 This is a rapid medical exam. Deferred additional HPI, ROS, PE to primary provider. 79 yo female with PMH CKD, HTN, anemia, CAD, OA, lung cancer not currently receiving treatment, dementia here with N/V/D x 10 days. Will obtain labs, stool studies, UA VSS Discharge Plan Discharge Prescriptions: No Action famotidine 40 mg tablet 40 mg PO BEDTIME PRN (Reason: acid reflux/heartburn) Qty: 30 6RF cyanocobalamin (vitamin B-12) 500 mcg tablet 1 tab DAILY cholecalciferol (vitamin D3) 25 mcg (1,000 unit) tablet 1 tab PO DAILY cetirizine 10 mg tablet 1 tab PO DAILY PRN (Reason: Allergy Symptoms) ferrous sulfate 325 mg (65 mg iron) tablet 325 mg PO DAILY mirtazapine 7.5 mg tablet 7.5 mg PO BEDTIME omeprazole 40 mg capsule,delayed release(DR/EC) 40 mg PO BID PRN (Reason: acid reflux/heartburn) enoxaparin 40 mg/0.4 mL Syringe 40 mg subcut Q24H Qty: 40 0RF acetaminophen 325 mg Tablet 650 mg PO Q6H PRN (Reason: Pain, Mild 1-3,Fever,Headache) Qty: 60 0RF naloxone 0.4 mg/mL Solution 0.04 mg IVPUSH Q5M PRN (Reason: Excessive sedation or RR < 8) Qty: 10 0RF melatonin 3 mg Tablet 6 mg PO BEDTIME PRN (Reason: Insomnia) Qty: 30 0RF magnesium hydroxide [Milk of Magnesia] 400 mg/5 mL Suspension 30 ml PO DAILY PRN (Reason: Constipation) Qty: 30 0RF docusate sodium [Colace] 100 mg capsule 100 mg PO BID Qty: 60 0RF oxycodone 5 mg tablet 5 mg PO Q8H PRN (Reason: pain) Qty: 12 0RF Rx Instructions: Partial Fill upon patient request. donepezil 5 mg tablet 5 mg PO BEDTIME Print Language: Welsh
[2025-03-02 14:26] VITALS: BP 115/59; PULSE 73; RESP 18; TEMP 36.2; O2SAT 96; BMI 16.8
[2025-03-02 15:02] LABS: MANUAL DIFF FLAG NO
[2025-03-02 15:05] LABS: Hematocrit 35.3 % (37.0-47.0); Hemoglobin 11.5 g/dl (12.0-16.0); Imm Gran Abs Auto 0.01 X10*3/uL (0.00-0.03); Imm Gran Pct Auto 0.3 % (0.0-0.4); Lymphocytes Absolute Auto 0.8 X10*3/uL (1.2-4.9); Mean Corpuscular HGB Conc 32.6 g/dl (31.0-35.0); Mean Corpuscular Hemoglobin 28.8 pg (27.0-33.0); Mean Corpuscular Volume 88.3 fL (80.0-98.0); NRBC Abs Auto 0.000 X10*3/uL (0.0-0.012); NRBC Pct Auto 0.0 /100WBC (0.0-0.2); Platelet Count 261 X10*3/uL (160-400); Red Blood Count 4.00 X10*6/uL (4.20-5.50); White Blood Count 3.6 X10*3/uL (4.8-10.8)
[2025-03-02 15:28] LABS: Alanine Aminotransferase < 6 U/L (0-31); Albumin Level 4.2 g/dL (3.5-5.0); Alkaline Phosphatase 98 U/L (39-117); Anion Gap 13 (12-20); Aspartate Amino Transferase 17 U/L (5-31); Blood Urea Nitrogen 14 mg/dL (9-16); Calcium 9.8 mg/dL (8.4-10.2); Carbon Dioxide 26 mmol/L (22-29); Chloride 106 mmol/L (96-108); Creatinine Clr Calc Pharmacy 29.0; Estimated Glomerular Filt Rate 46; Magnesium 2.2 mg/dL (1.6-2.6); Potassium 3.7 mmol/L (3.3-5.1); Sodium 141 mmol/L (135-145); Total Protein 8.8 g/dL (6.5-8.0)
[2025-03-02 17:15] VITALS: BP 129/55; PULSE 55; RESP 16; O2SAT 96
--- OUTSIDE RECORDS SUMMARY | 2025-03-02 17:26 | XMS_ITS | Encounter Summary ---
Author Organization [employer] Address 75 [facility] 7t [place] [address] Care Team Providers Care Artistic Director Name Role Phone Jefferson Sosa MD Primary Care Provider Reason for Visit * Reason Onset Date Comments Med Refill 02/26/2025 Encounter Details Date Type Department Care Team ([facility] st Contact Info) Description 02/26/2025 Refill [facility] CHC MED & PEDS [address] [place] [address] Jefferson Sosa MD 505 [place] [address] Social History Tobacco Use Types Packs/Day Years [...] encounter Miscellaneous Notes * Telephone Encounter - Denisa Lam LPN - 02/26/2025 9:37 AM EDT Last seen 01.23.25 * Telephone Encounter - Nilson Dodge - 02/26/2025 9:27 AM EDT TC from pt requesting medication refill. Medications needing refill : omeprazole (PriLOSEC) [address] capsule To be sent to: [facility] [place], [place] - [address] [place] [address] documented in this encounter Plan of Treatment Upcoming Encounters Date Type Department Care Team (Late st Contact Info) Description 03/15/2025 8:00 AM EST Office Visit [facility] ADULT DENTAL 230 [place] [address] Nate White DDS 230 [place] [address] 03/29/2025 2:30 PM EST Office Visit [facility] CHC MED & PEDS [address] [place] [address] Jefferson Sosa MD 505 [place] [address] documented as of this encounter Visit Diagnoses Not on filedocumented in this encounter Additional Health Concerns Assessment Noted Time PHQ-9 Depression Total Score: 0 10/01/19 24 3:56 PM EDT documented as of this encounter Care Teams Artistic Director Relationship Specialty Start Date End Date Jefferson Sosa MD [address] [place] [address] PCP - General Internal Medicine 05/17/13 [facility] 09/19/24 documented as of this encounter
--- OUTSIDE RECORDS SUMMARY | 2025-03-02 17:26 | XMS_ITS | Encounter Summary ---
Author Organization [employer] Address [address] [facility] [address] 7t [place] [address] Care Team Providers Care Electric Gas Appliances Demonstrator Name Role Phone Jefferson Sosa MD Primary Care Provider Encounter Details Date Type Department Care Team (Late st Contact Info) Description 02/14/2024 Orders Only [facility] W[facility] 230 [place] [address] Jefferson Sosa MD 505 [place], [place] [phone] Social History Tobacco Use Types Packs/Day Years [...] Description 03/15/2025 8:00 AM EST Office Visit [facility] ADULT DENTAL 230 [place], [place] [phone] Nate White DDS 230 [place] [address] 03/29/2025 2:30 PM EST Office Visit [facility] CHC MED & PEDS 505 [place] [address] Jefferson Sosa MD 505 [place] [address] documented as of this encounter Visit Diagnoses Not on filedocumented in this encounter Additional Health Concerns Assessment Noted Time PHQ-9 Depression Total Score: 0 10/01/19 3:56 PM EDT documented as of this encounter Care Teams Electric Gas Appliances Demonstrator Relationship Specialty Start Date End Date Jefferson Sosa MD 505 [place] [address] PCP - General Internal Medicine 05/17/13 [facility] 09/19/24 documented as of this encounter
--- OUTSIDE RECORDS SUMMARY | 2025-03-02 17:26 | XMS_ITS | Encounter Summary ---
Author Organization [employer] Address [address] [facility] 7t [place] [address] Care Team Providers Care Ux Specialist Name Role Phone Jefferson Sosa MD Primary Care Provider Reason for Visit * Reason Comments Med Refill Encounter Details Date Type Department Care Team ([facility] st Contact Info) Description 09/20/2024 Refill [facility] CHC MED & PEDS 505 [place], [place] [phone] Jefferson Sosa MD 505 [place] [address] Epigastric pain Social History Tobacco Use Types Packs/Day Years [...] Office Visit [facility] ADULT DENTAL 230 [place] [address] Nate White DDS 230 [place] [address] 03/29/2025 2:30 PM EST Office Visit [facility] CHC MED & PEDS [address] [place] [address] Jefferson Sosa MD 505 [place] [address] documented as of this encounter Visit Diagnoses Diagnosis Epigastric pain Abdominal pain, epigastric documented in this encounter Additional Health Concerns Assessment Noted Time PHQ-9 Depression Total Score: 0 10/01/19 24 3:56 PM EDT documented as of this encounter Care Teams Ux Specialist Relationship Specialty Start Date End Date Jefferson Sosa MD 505 [place] [address] PCP - General Internal Medicine 05/17/13 [facility] 09/19/24 documented as of this encounter
--- OUTSIDE RECORDS SUMMARY | 2025-03-02 17:26 | XMS_ITS | Encounter Summary ---
Author Organization [employer] Address 75 [facility] 7[address] [place] [address] Care Team Providers Care Denture Processor Name Role Phone Jefferson Sosa MD Primary Care Provider Reason for Visit * Reason Comments Med Refill Encounter Details Date Type Department Care Team ([facility] Contact Info) Description 12/30/2022 Refill [facility] [place] MED & PEDS 505 [place], [place] [phone] Jefferson Sosa MD 505 [place], [place] [phone] Other iron deficiency anemia; Seasonal allergic rhinitis [...] Upcoming Encounters Date Type Department Care Team ([facility] Contact Info) Description 03/15/2025 8:00 AM EST Office Visit [facility] ADULT DENTAL 230 [place], [place] [phone] Nate White DDS [address] [place], [place] [phone] 03/29/2025 2:30 PM EST Office Visit [facility] [place] MED & PEDS 505 [place], [place] [phone] Jefferson Sosa MD 505 [place] [address] documented as of this encounter Visit Diagnoses Diagnosis Other iron deficiency anemia Seasonal allergic rhinitis due to other allergic trigger documented in this encounter Care Teams Denture Processor Relationship Specialty Start Date End Date Jefferson Sosa MD 505 [place] [address] PCP - General Internal Medicine 05/17/13 [facility] 09/19/24 documented as of this encounter
--- OUTSIDE RECORDS SUMMARY | 2025-03-02 17:26 | XMS_ITS | Encounter Summary ---
Author Organization [employer] Address [address] [facility] [address] 7t [place] [address] Care Team Providers Care Divorce Mediator Name Role Phone Jefferson Sosa MD Primary Care Provider Reason for Visit * Reason Onset Date Comments ER Follow-up 11/26/2023 Encounter Details Date Type Department Care Team (Late st Contact Info) Description 11/26/2023 Telephone [facility] 230 [place] [address] Jefferson Sosa MD [address] [place], [place] [phone] ER Follow-up Social History Tobacco Use Types [...] not set up. Call to yanni arango, BOOM TENDER not with pt, gave daughter number. No answer LVM to return callto [facility]. * Telephone Encounter - Timothy Ovalles - 11/26/2023 11:19 AM EDT Patient calling to report ED visit on : Date: 11/24 Hospital: [facility] Seen for: Feet swelling and chest pain Patient advised will forward to team nurse for follow up documented in this encounter Plan of Treatment Upcoming Encounters Date Type Department Care Team (Late st Contact Info) Description 03/15/2025 8:00 AM EST Office Visit [facility] ADULT DENTAL [address] [place] [address] Nate White DDS 230 [place] [address] 03/29/2025 2:30 PM EST Office Visit [facility] MED & PEDS 505 [place] [address] Jefferson Sosa MD 505 [place] [address] documented as of this encounter Visit Diagnoses Not on filedocumented in this encounter Additional Health Concerns Assessment Noted Time PHQ-9 Depression Total Score: 0 10/01/19 24 3:56 PM EDT documented as of this encounter Care Teams Divorce Mediator Relationship Specialty Start Date End Date Jefferson Sosa MD [address] [place] [address] PCP - General Internal Medicine 05/17/13 [facility] 09/19/24 documented as of this encounter
--- OUTSIDE RECORDS SUMMARY | 2025-03-02 17:26 | XMS_ITS | Encounter Summary ---
Author Organization [employer] Address 75 [facility] 7t [place] [address] Care Team Providers Care Head Concierge Name Role Phone Jefferson Sosa MD Primary Care Provider Encounter Details Date Type Department Care Team (Late st Contact Info) Description 07/23/2023 Orders Only [facility] CHC MED & PEDS 505 [place], [place] [phone] Jefferson Sosa MD 505 [place], [place] [phone] Memory disturbance (Primary Dx) Social History Tobacco [...] Description 03/15/2025 8:00 AM EST Office Visit [facility] ADULT DENTAL 230 [place], [place] [phone] Nate White, DDS 230 [place] [address] 03/29/2025 2:30 PM EST Office Visit [facility] CHC MED & PEDS 505 [place], [place] [phone] Jefferson Sosa MD 505 [place], [place] [phone] documented as of this encounter Procedures Procedure Name Priority Date/Time Associated Diagnosis Comments [facility] US LOWER EXTREMITY VENOUS DUPLEX BILATERAL Routine 08/19/2023 3:18 PM EDT documented in this encounter Results * [facility] US Lower Extremity Venous Duplex Bilateral (08/19/2023 3:18 PM EDT) 08/19/2023 3:18 PM EDT Narrative [facility] - 08/25/2023 2:32 PM EDT [address] [address] Ultrasound Report Signed Patient: Crystal Avila I MR# : [id number] : 1945 Acct:[id number] Age/Sex: 78 / F ADM Date: 08/19/23 Loc: HO.US Attending Dr: Saad Michaels MD Ordering Physician: SAAD MICHAELS MD Date of Service: 08/19/23 Procedure(s): US venous duplex LE BI Accession Number(s): [id number] cc: SAAD MICHAELS MD; Jefferson Sosa MD [...] in OV> 08/25/23 1428 DD/ 1518 TD/TT: Black Leather Buffer: Procedure Note Donotuseinterpreter, Image - 08/25/[address] [address] Ultrasound Report Signed Patient: Crystal Avila IMR# : [id number] : [id number]:[id number] Age/Sex: 78 / FADM Date: 08/19/23 Loc: .US Attending Dr: Saad Michaels MD Ordering Physician: SAAD MICHAELS MD Date of Service: 08/19/23 Procedure(s): US venous duplex LE BI Accession Number(s): [id number] cc: SAAD MICHAELS MD; Jefferson Sosa MD [...] in OV> 08/25/23 1428 DD/ 1518 TD/TT: Black Leather Buffer: us Saad Michaels MD CV VASCULAR PROCEDURES Final Res ult [facility] [address] [place] [address] documented in this encounter Visit Diagnoses Diagnosis Memory disturbance- Primary Memory loss documented in this encounter Care Teams Head Concierge Relationship Specialty Start Date End Date Jefferson Sosa MD [address] [place] [address] PCP - General Internal Medicine 05/17/13 [facility] 09/19/24 documented as of this encounter
--- OUTSIDE RECORDS SUMMARY | 2025-03-02 17:26 | XMS_ITS | Encounter Summary ---
Author Organization [employer] Address [address] [facility] [address] 7t [place] [address] Care Team Providers Care Ediscovery Project Manager Name Role Phone Jefferson Sosa MD Primary Care Provider [phone] Reason for Visit * Reason Onset Date Comments Nurse Triage 03/02/2025 Encounter Details Date Type Department Care Team (Late st Contact Info) Description 03/02/2025 Telephone [facility] MEDICINE [address] [place] [address] Jefferson Sosa MD [address] [place], [place] [phone] Nurse Triage Social History Tobacco Use Types Packs/Day Years [...] encounter Miscellaneous Notes * Telephone Encounter - Kassidy Del Valle RN - 03/02/2025 1:32 PM EDT TC placed to Kathie which is the patient caregiver on HIPPA. Kathie and the patient reported diarrhea x 1 week and 3 days. Kathie reported patient has black tarry stool 1 hour prior to call the nursetriage line. Patient denies any abd pain, denies N/V. RN advised Kathie to take the patient to the ED now for further evaluation. Kathie reported she will take the patient to [facility] ED. Kathie and patient verbalized understanding. Protocol Used: Rectal Bleeding (Adult) Protocol-Based Disposition: Go to ED Now Video visit not offered Positive Triage Questions: * Bloody, black, or tarry bowel movements (Exception: Chronic-unchanged black- sampson bowel movements and is taking iron pills or Pepto-Bismol.) * Age > 50 years * All higher-acuity triage questions were negative Care Advice Discussed: * Reasons To Call Back - Bleeding increases in amount - Bleeding occurs 3 or more times after using Care Advice - You become worse * Telephone Encounter - Vinayak Schuler - 03/02/2025 12:34 PM EDT Symptom: Diarrhea Outcome: Talk to a nurse or provider within 15 minutes Reason: Blood in the diarrhea (suspected) Please contact pt/Kathie at [phone]. (Namibian Speaker) documented in this encounter Plan of Treatment Upcoming Encounters Date Type Department Care Team (Late st Contact Info) Description 03/15/2025 8:00 AM EST Office Visit [facility] ADULT DENTAL [address] [place], [place] [phone] Nate White DDS 230 [place], [place] [phone] 03/29/2025 2:30 PM EST Office Visit [facility] CHC MED & PEDS 505 [place] [address] Jefferson Sosa MD 505 [place], [place] [phone] documented as of this encounter Visit Diagnoses Not on filedocumented in this encounter Additional Health Concerns Assessment Noted Time PHQ-9 Depression Total Score: 0 10/01/19 24 3:56 PM EDT documented as of this encounter Care Teams Ediscovery Project Manager Relationship Specialty Start Date End Date Jefferson Sosa MD 505 [place] [address] PCP - General Internal Medicine 05/17/13 [facility] 09/19/24 documented as of this encounter
--- OUTSIDE RECORDS SUMMARY | 2025-03-02 17:26 | XMS_ITS | Encounter Summary ---
Author Organization [employer] Address [address] [place] [address] 7t [place] [address] Care Team Providers Care Cabinetmaker Maintenance Name Role Phone Jefferson Sosa MD Primary Care Provider Reason for Visit * Reason Comments Med Refill Encounter Details Date Type Department Care Team (Late Contact Info) Description 10/19/2022 Refill [facility] MED & PEDS [address] [place], [place] [phone] Jefferson Sosa MD 505 [place], [place] [phone] Epigastric pain; Vitamin D deficiency Social History [...] Upcoming Encounters Date Type Department Care Team ([facility] Contact Info) Description 03/15/2025 8:00 AM EST Office Visit [facility] ADULT DENTAL 230 [place] [address] Nate White DDS [address] [place], [place] [phone] 03/29/2025 2:30 PM EST Office Visit [facility] MED & PEDS [address] [place], [place] [phone] Jefferson Sosa MD 505 [place] [address] documented as of this encounter Visit Diagnoses Diagnosis Epigastric pain Abdominal pain, epigastric Vitamin D deficiency documented in this encounter Care Teams Cabinetmaker Maintenance Relationship Specialty Start Date End Date Jefferson Sosa MD 505 [facility] [address] PCP - General Internal Medicine 05/17/13 [facility] 09/19/24 documented as of this encounter
--- OUTSIDE RECORDS SUMMARY | 2025-03-02 17:26 | XMS_ITS | Encounter Summary ---
Author Organization [employer] Address [address] [facility] 7[address] [place] [address] Care Team Providers Care Engineering Librarian Name Role Phone Jefferson Sosa MD Primary Care Provider [phone] Encounter Details Date Type Department Care Team (Late Contact Info) Description 11/11/2022 Abstract [facility] MEDICINE [address] [place] [address] Jefferson Sosa MD [address] [place] [address] Social History Tobacco Use Types Packs/Day Years [...] Upcoming Encounters Date Type Department Care Team ([facility] Contact Info) Description 03/15/2025 8:00 AM EST Office Visit [facility] ADULT DENTAL 230 [place] [address] Nate White DDS 230 [place] [address] 03/29/2025 2:30 PM EST Office Visit [facility] CHC MED & PEDS 505 [place] [address] Jefferson Sosa MD [address] [place], [place] [phone] documented as of this encounter Visit Diagnoses Not on filedocumented in this encounter Care Teams Engineering Librarian Relationship Specialty Start Date End Date Jefferson Sosa MD [address] [place] [address] PCP - General Internal Medicine 05/17/13 [facility] 09/19/24 documented as of this encounter
--- OUTSIDE RECORDS SUMMARY | 2025-03-02 17:26 | XMS_ITS | Encounter Summary ---
Author Organization [employer] Address [address] [facility] 7t [place] [address] Care Team Providers Care Pyrometer Operator Name Role Phone Jefferson Sosa MD Primary Care Provider Reason for Visit * Reason Comments Med Refill Encounter Details Date Type Department Care Team ([facility] st Contact Info) Description 02/26/[address] [facility] CHC MED & PEDS [address] [place], [place] [phone] Jefferson Sosa MD [address] [place] [address] Social History Tobacco Use Types Packs/Day Years [...] Description 03/15/2025 8:00 AM EST Office Visit [facility] ADULT DENTAL [address] [place] [address] Nate White DDS [address] [place] [address] 03/29/2025 2:30 PM EST Office Visit [facility] CHC MED & PEDS [address] [place] [address] Jefferson Sosa MD [address] [place] [address] documented as of this encounter Visit Diagnoses Not on filedocumented in this encounter Additional Health Concerns Assessment Noted Time PHQ-9 Depression Total Score: 0 10/01/19 24 3:56 PM EDT documented as of this encounter Care Teams Pyrometer Operator Relationship Specialty Start Date End Date Jefferson Sosa MD [address] [place] [address] PCP - General Internal Medicine 05/17/13 [facility] 09/19/24 documented as of this encounter
--- OUTSIDE RECORDS SUMMARY | 2025-03-02 17:26 | XMS_ITS | Encounter Summary ---
Author Organization [employer] Address [address] [facility] [address] 7t [place] [address] Care Team Providers Care Home Economist Name Role Phone Jefferson Sosa MD Primary Care Provider Reason for Visit * Reason Onset Date Comments Order for VNA Services 01/28/2024 Encounter Details Date Type Department Care Team (Late st Contact Info) Description 01/28/2024 Telephone [facility] MEDICINE [address] [place] [address] Jefferson Sosa MD [address] [place], [place] [phone] Order for VNA Services Social History Tobacco [...] - 01/28/2024 8:12 AM EDT Tc from [place] with [facility] requesting a New order for VNA Services due to pt getting a biopsy done for some masses and is requiring services. documented in this encounter Plan of Treatment Upcoming Encounters Date Type Department Care Team (Late st Contact Info) Description 03/15/2025 8:00 AM EST Office Visit [facility] ADULT DENTAL [address] [place] [address] Nate White DDS [address] [place] [address] 03/29/2025 2:30 PM EST Office Visit [facility] CHC MED & PEDS [address] [place] [address] Jefferson Sosa MD [address] [place] [address] documented as of this encounter Visit Diagnoses Not on filedocumented in this encounter Additional Health Concerns Assessment Noted Time PHQ-9 Depression Total Score: 0 10/01/19 3:56 PM EDT documented as of this encounter Care Teams Home Economist Relationship Specialty Start Date End Date Jefferson Sosa MD [address] [place] [address] PCP - General Internal Medicine 05/17/13 [facility] 09/19/24 documented as of this encounter
--- OUTSIDE RECORDS SUMMARY | 2025-03-02 17:26 | XMS_ITS | Clinical Summary ---
Author Organization [employer] Address [address] [facility] 7t [place] [address] Care Team Providers Care Pipe Processor Name Role Phone Jefferson oSsa MD Primary Care Provider Allergies No known active allergies Medications famotidine (Pepcid) 40 MG tablet Take 1 tablet by mouth in the morning. 05/05/20 23 Active cetirizine (ZyrTEC) 10 MG tabletIndicatio ns:Seasonal allergic rhinitis due to other allergic trigger TAKE ONE TABLET BY MOUTH EVERY DAY NEEDED (VIAL) 28 tablet 10/19/19 25 Active donepezil (Aricept) 5 MG tablet TAKE ONE TABLET BY MOUTH EVERY EVENING ^1R4 30 tablet 10/19/19 25 Active ferrous sulfate (FeroSul) 325 (65 Fe) MG tabletIndicatio ns:Other iron deficiency anemia TAKE ONE TABLET BY MOUTH EVERY OTHER DAY 15 tablet 10/19/19 25 Active acetaminophen (Tylenol) 500 MG tablet Take 1 tablet (500 mg) by mouth every 6 (six) hours if needed for mild pain. 20 tablet 10/31/19 25 Active Nutritional Supplements (Ensure Active High Protein) liquidIndicatio ns:Hypoalbumine greta 1 bottle 3 times every day 237 mL 12/05/19 25 Active cyanocobalamin (Vitamin B-12) 500 MCG tabletIndicatio ns:Vitamin B12 deficiency TAKE ONE TABLET BY MOUTH EVERY DAY ^1R1 28 tablet 12/15/19 25 Active cholecalciferol (Vitamin D-3) 25 MCG (1000 UT) capsuleIndicati ons:Vitamin D deficiency TAKE ONE CAPSULE BY MOUTH EVERY DAY 28 capsule 12/15/19 25 Active melatonin 5 MG tabletIndicatio ns:Primary insomnia TAKE 1 TABLET BY MOUTH EVERY DAY 90 tablet 02/20/20 25 Active mirtazapine (Remeron) 15 MG tabletIndicatio ns:Primary insomnia TAKE 1 TABLET BY MOUTH AT BEDTIME 90 tablet 02/20/20 25 Active omeprazole (PriLOSEC) [address] capsule TAKE 1 CAPSULE BY MOUTH TWICE A DAY. DO NOT CRUSH OR CHEW. 60 capsule 3 02/27/20 25 Active omeprazole (PriLOSEC) [address] capsule TAKE 1 CAPSULE BY MOUTH TWICE A DAY. DO NOT CRUSH OR CHEW. 60 capsule 3 10/11/19 25 025 Discontinued(Re order (will not trigger notification to Pharmacy)) mirtazapine (Remeron) 15 MG tabletIndicatio ns:Primary insomnia Take 1 tablet (15 mg) by mouth at bedtime. 30 tablet 01/24/20 25 025 Discontinued melatonin 5 MG tabletIndicatio ns:Primary insomnia Take 1 tablet (5 mg) by mouth Once per day. 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 Pain, dental 10/30/2024 Dental caries 10/30/2024 Periodontal disease 10/30/2024 Chronic GERD 08/15/2024 NSTEMI (non-ST elevated myocardial infarction) 0 08/19/2023 Metastatic non-small cell lung cancer 06/07/2023 06/07/2023 ELIF (iron deficiency anemia) 06/07/2023 Liver mass 03/26/2022 Hypoalbuminemia 09/26/2021 Carcinoma of liver (CMS/HCC) 09/24/2021 Cyst of kidney, acquired 03/25/2021 Chronic renal failure 08/08/2020 Hyperglycemia 06/24/2018 Allergic rhinitis 09/17/2011 Anemia 09/17/2011 Benign essential hypertension 09/17/2011 Depressive disorder 09/17/2011 Generalized osteoarthritis 09/17/2011 Obesity 09/17/2011 Vitamin deficiency 09/17/2011 Encounters Date Type Department Care Team Description 03/02/2025 Telephone [facility] MEDICINE [address] [place], [place] [phone] Jefferson Sosa MD Nurse Triage 02/26/2025 Refill [facility] CHC MED & PEDS [address] [place] [address] Jefferson Hernandez MD 02/26/2025 Refill [facility] CHC MED & PEDS [address] [place] [address] Jefferson Sosa MD 02/17/2025 Refill [facility] CHC MED & PEDS [address] [place] [address] Jefferson Sosa MD Primary insomnia 02/09/2025 1:30 PM EDT Office Visit [facility] ADULT DENTAL [address] [place] [address] Ntae White DDS Periodontal disease (Primary Dx); Dental caries 01/23/2025 3:30 PM EDT Office Visit [facility] MED & PEDS [address] [place] [address] Jefferson Sosa MD Primary insomnia (Primary Dx) 01/23/2025 Travel 01/23/2025 Refill [facility] CHC MED & PEDS [address] [place] [address] Jefferson Sosa MD Depressive disorder 01/12/2025 Refill [facility] CHC MED & PEDS [address] [place] [address] Jefferson Sosa MD 01/11/2025 Telephone [facility] MEDICINE [address] [place] [address] Jefferson Sosa MD Medication Question 01/05/2025 8:00 AM EDT Office Visit [facility] ADULT DENTAL [address] [place] [address] Nate White DDS Severe dental caries (Primary Dx); Non-restorable tooth; Teeth ankylosis 12/22/2024 Refill [facility] CHC MED & PEDS [address] [place] [address] Inocencio Aguilar MD Depressive disorder 12/13/2024 Refill [facility] CHC MED & PEDS [address] [place] [address] Jefferson Sosa MD Vitamin B12 deficiency; Vitamin D deficiency 12/07/2024 Telephone [facility] MED & PEDS [address] [place] [address] Jefferson Sosa MD Durable Medical Equipment 12/04/2024 3:15 PM EDT Office Visit [facility] MED & PEDS [address] [place] [address] Jefferson Sosa MD Benign essential hypertension (Primary Dx); Hypoalbuminemia; Underweight 12/04/2024 Travel from Last 3 Months Immunizations Immunization Administration Dates Next Due Influenza High-dose Quadriva [...] Sign Reading Time Taken Comments Blood Pressure 126/76 02/09/2025 1:07 PM EDT Pulse 70 02/09/2025 1:07 PM EDT Temperature 36.6 C (97.8 F) 08/18/2024 1:47 PM EDT Respiratory Rate 19 01/23/2025 3:11 PM EDT Oxygen Saturation 98% 01/23/2025 3:11 PM EDT Inhaled Oxygen Concentration - - Weight 47.2 kg (104 lb) 01/23/2025 3:11 PM EDT Height 152.4 cm (5') 01/23/2025 3:11 PM EDT Body Mass Index 20.31 01/23/2025 3:11 PM EDT Plan of Treatment Upcoming Encounters Date Type Department Care Team (Late st Contact Info) Description 03/15/2025 8:00 AM EST Office Visit [facility] ADULT DENTAL [address] [place] [address] Nate White DDS [address] [place] [address] 03/29/2025 2:30 PM EST Office Visit [facility] CHC MED & PEDS [address] [place] [address] Jefferson Sosa MD [address] [place] [address] Health Maintenance Due Date Last Done Comments Dental Prophylaxis 1945 Dental X-Ray: Bitewings 1945 Hepatitis C Screening 07/10/1965 Hepatitis A Vaccines (1 of 2 - Risk 2-dose series) 07/10/1966 Hepatitis B Vaccines (1 of 3 - Risk 3-dose series) 2007 RSV Patients and Patients Aged 60 years or older (1 - 1-dose 75+ series) 07/10/2022 DTaP/Tdap/Td Vaccines (2 - Td or Tdap) 09/20/2024 09/20/2014 Depression Screening 09/30/2024 10/01/2023, 10/01/19 COVID-19 Vaccine ( season) 2025 08/09/2020, 07/30/2020, 07/19/2020, Additional history exists Influenza Vaccine (#1) 2025 , 04/29/2020, 07/10/2019, Additional history exists Dental Oral Exam 07/08/2025 01/05/2025 Lipid Panel 08/07/2025 08/07/2020 Alcohol/Substance Use Screening 08/18/2025 08/18/2024 SDOH Screening 08/18/2025 08/18/2024 Tobacco Screening 02/09/2026 02/09/2025 Dental X-Ray: Full Mouth 11/01/2027 10/30/2024 Pneumococcal Vaccine: 50+ Years Completed 02/09/2022, 03/31/2017 Zoster Vaccines Completed 04/13/2022, 07/2021, 05/09/2014 HIB Vaccines Aged Out No longer eligi ble based on patient's age to complete this topic HPV Vaccines Aged Out No longer eligi ble based on patient's age to complete this topic IPV Vaccines Aged Out No longer eligi ble based on patient's age to complete this topic Meningococcal B Vaccine Aged Out No l onger eligible based on patient's age to complete [...] Procedure Name Priority Date/Time Associated Diagnosis Comments CASE PRESENTATION, DETAILED AND EXTENSIVE TREATMENT PLANNING Routine 02/09/2025 1:30 PM EDT 13 EXTRACTION, ERUPTED TOOTH OR EXPOSED ROOT (ELEVATION/FORCEPS REMOVAL) Routine 02/09/2025 1:30 PM EDT 2 EXTRACTION, ERUPTED TOOTH OR EXPOSED ROOT (ELEVATION/FORCEPS REMOVAL) Routine 02/09/2025 1:30 PM EDT COMPREHENSIVE ORAL EVALUATION - NEW OR ESTABLISHED PATIENT Routine 01/05/2025 8:00 AM EDT 15 EXTRACTION, ERUPTED TOOTH REQ REMOVAL OF BONE AND/OR SECTIONING OF TOOTH Routine 01/05/2025 8:00 AM EDT CASE PRESENTATION, DETAILED AND EXTENSIVE TREATMENT PLANNING Routine 01/05/2025 8:00 AM EDT PANORAMIC RADIOGRAPHIC IMAGE Routine 10/30/2024 3:00 PM EDT LIPID PANEL, STANDARD Routine 08/07/2020 8:22 AM EDT from Last 3 Months or Most Recently Relevant to Health Maintenance Results * (ABNORMAL) LIPID PANEL, STANDARD (08/07/2020 8:22 AM EDT) Chol/HDLC Ratio 3.1 <5.0 (calc) [facility] Cholesterol, Total 145 <200 mg/dL [facility] HDL Cholesterol 47(L) > OR = 50 mg/dL [facility] LDL Cholesterol 82 mg/dL (calc) [facility] Comment: Reference range: <100 Desirable range <100 mg/dL for primary prevention; <70 mg/dL for patients with CHD or diabetic patients with > or = 2 CHD risk factors. LDL-C is now calculated using the Sherif-Marielena calculation, which is a validated novel method providing better accuracy than the Friedewald equation in the estimation of LDL-C. Sherif CULVER et al. MARKUS. 2013;310(19): 0485-5848 (http://education.[employer].com/faq/CNK712) Non-HDL Cholesterol 98 <130 mg/dL (calc) [facility] Comment: For patients with diabetes plus 1 major ASCVD risk factor, treating to a non-HDL-C goal of <100 mg/dL (LDL-C of <70 mg/dL) is considered a therapeutic option. Triglycerides 84 <150 mg/dL [facility] 08/07/2020 8:22 AM EDT us Jefferson Sosa MD LAB BLOOD ORDERABLES Final Result [facility] [address] [place] [address], from Last 3 Months or Most Recently Relevant to Health Maintenance Insurance [facility] STANDARD [facility] [employer]F-W[employer] OPTIONS (HMO D-SNP) DENTAL [facility] Advance Directives Documents on File Type Date Recorded Patient Channel Director Expl anation Advance Directives and Livin g Will 10/05/2023 2:44 PM HCP Care Teams Pipe Processor Relationship Specialty Start Date End Date Jefferson Sosa MD [address] [place] [phone] PCP - General Internal Medicine 05/17/13 [facility] 09/19/24
--- OUTSIDE RECORDS SUMMARY | 2025-03-02 17:26 | XMS_ITS | Encounter Summary ---
Author Organization [employer] Address [address] [facility] [address]t [place] [address] Care Team Providers Care Strapping Machine Operator Name Role Phone Jefferson Sosa MD Primary Care Provider Reason for Visit * Reason Onset Date Comments FYI 11/10/2023 Encounter Details Date Type Department Care Team (Late st Contact Info) Description 11/10/2023 Telephone [facility] MEDICINE [address] [place] [address] Jefferson Sosa MD [address] [place], [place] [phone] FYI Social History Tobacco Use Types Packs/Day Years [...] - 11/10/2023 3:22 PM EDT Tc from [facility] calling to report the patient had a [...] Description 03/15/2025 8:00 AM EST Office Visit [facility] ADULT DENTAL [address] [place] [address] Nate White DDS [address] [place] [address] 03/29/2025 2:30 PM EST Office Visit [facility] CHC MED & PEDS [address] [place] [address] Jefferson Sosa MD [address] [place] [address] documented as of this encounter Visit Diagnoses Not on filedocumented in this encounter Additional Health Concerns Assessment Noted Time PHQ-9 Depression Total Score: 0 10/01/19 24 3:56 PM EDT documented as of this encounter Care Teams Strapping Machine Operator Relationship Specialty Start Date End Date Jefferson Sosa MD [address] [place] [address] PCP - General Internal Medicine 05/17/13 [facility] 09/19/24 documented as of this encounter
--- OUTSIDE RECORDS SUMMARY | 2025-03-02 17:26 | XMS_ITS | Encounter Summary ---
Author Organization [employer] Address [address] [facility] 7t [place] [address] Care Team Providers Care Pin Inserter Regulator Name Role Phone Jefferson Sosa MD Primary Care Provider Reason for Visit * Reason Comments Med Refill Encounter Details Date Type Department Care Team (Late st Contact Info) Description 01/12/2025 Refill [facility] MED & PEDS [address] [place], [place] [phone] Jefferson Sosa MD [address] [place] [address] Social History Tobacco Use Types Packs/Day Years [...] Description 03/15/2025 8:00 AM EST Office Visit [facility] ADULT DENTAL [address] [place] [address] Nate White DDS [address] [place] [address] 03/29/2025 2:30 PM EST Office Visit [facility] CHC MED & PEDS [address] [place] [address] Jefferson Sosa MD [address] [place] [address] documented as of this encounter Visit Diagnoses Not on filedocumented in this encounter Additional Health Concerns Assessment Noted Time PHQ-9 Depression Total Score: 0 10/01/19 24 3:56 PM EDT documented as of this encounter Care Teams Pin Inserter Regulator Relationship Specialty Start Date End Date Jefferson Sosa MD [address] [place] [address] PCP - General Internal Medicine 05/17/13 [facility] 09/19/24 documented as of this encounter
--- OUTSIDE RECORDS SUMMARY | 2025-03-02 17:26 | XMS_ITS | Encounter Summary ---
Author Organization [employer] Address [address] [facility] [address] [place] [address] Care Team Providers Care Assistant Manager Retail Name Role Phone Jefferson Sosa MD Primary Care Provider Reason for Visit * Reason Comments Med Refill Encounter Details Date Type Department Care Team ([facility] Contact Info) Description 01/01/2023 Refill [facility] MED & PEDS [address] [place], [place] [phone] Jefferson Sosa MD [address] [place], [place] [phone] Seasonal allergic rhinitis due to other allergic [...] Upcoming Encounters Date Type Department Care Team ([facility] Contact Info) Description 03/15/2025 8:00 AM EST Office Visit [facility] ADULT DENTAL [address] [place], [place] [phone] Nate White DDS [address] [place], [place] [phone] 03/29/2025 2:30 PM EST Office Visit [facility] MED & PEDS [address] [place], [place] [phone] Jefferson Sosa MD [address] [place] [address] documented as of this encounter Visit Diagnoses Diagnosis Seasonal allergic rhinitis due to other allergic trigger Other iron deficiency anemia documented in this encounter Care Teams Assistant Manager Retail Relationship Specialty Start Date End Date Jefferson Sosa MD [address] [place] [address] PCP - General Internal Medicine 05/17/13 [facility] 09/19/24 documented as of this encounter
--- OUTSIDE RECORDS SUMMARY | 2025-03-02 17:26 | XMS_ITS | Data Portability ---
Author Organization [employer], [facility] Address [address] [place] [address] Care Team Providers Care Ed Transporter Name Role Phone HIM CCA OTHER Unavailable OTHER Assessment Encounter Date Assessment Date Assessment LastModified by Organization Details LastModified Time 09/15/2023 09/15/2023 As noted, we were called to see this patient regarding concerns of weakness. Evaluation in the field was performed by my shearer printed circuit boards colleague, as noted above, I provided real-time direction and supervision for this visit. The evaluation revealed 78y F with vague constellatoin of sxs including weakness, headache, decreased appetite, chest pain c/w heart burn though she does have known CAD w NSTEMI in May (sxs today resolved w antacid, EKG reassuring). POC viral swabs neg. VSS. Provided reassurance. Continue to monitor. Notify us of any changes, worsening, or present to ER. Fu as able w PCP. Impression: weakness Plan: reassurance, precautions, f/u w PCP Primary care, consider f/u in next 5-10d as able Disposition: We discussed the diagnostic uncertainty of home visits and the risk associated with this. In this case, the patient and I felt this to be an acceptable and reasonable amount of risk given the benefit of avoiding an ED visit. We discussed the need to seek care urgently/emergen tly in the setting of any new or worsening serious symptoms, particularly worsening dizziness, confusion, weakness, vomiting, chest pain, shob, falls atilhou Not available 09/15/2023 19:28:03 11/25/2023 11/25/2023 I have reviewed and agree with the assessment and plan as daocumented by the shearer printed circuit boards. I provided real-time medical direction for this encounter and was immediately available to provide additional phone-based assistance as needed. History as noted in EMR and by shearer printed circuit boards. I would add / emphasize: Patient seen for multiple complaints including intermittent chest pain, dyspnea, and difficulty ambulating due to pain in the bilateral lower extremities. Symptoms for approximately 24 hours. Patient and family have noted purple discoloration of the bilateral lower extremities inhibiting her ability to walk. Newly describing chest pain last night into this morning which has since resolved. AVSS and afebrile on exam. Given evidence of new extremity discoloration with difficulty ambulating due to claudication symptoms as well as new chest pain in an elderly patient recommended evaluation in the emergency department and patient/family in agreement. Transported to ED via EMS. pallfather Not available 11/25/2023 15:10:42 Plan of Treatment Reminders Order Date Submit Date Provider Last Modified By Organization Details Last Modified Time Details Appointments None recorded. Lab urinalysis, dipstick 2024 025 [facility], [address] [place] [address], [id number] 21:42:29 culture, urine 2024 025 [facility], [address] [place] [address], [place], [address], 05:30:36 urinalysis, dipstick 2024 025 [facility], [address] [place] [address], [phone] 21:42:07 Referral None recorded. Procedures None recorded. Surgeries None recorded. Imaging None recorded. Medication Orders sulfamethox azole 800 mg-trimetho prim 160 mg tablet 2024 025 [facility]armacy #[id number], [address] [place], [address], 5 20:03:16 Bactrim DS 800 mg-160 mg tablet 2024 025 [email or web address] [facility]/Pharmacy #[id number], [address] [place], [address], 5 20:15:33 Patient TargetsNo targets recorded. Patient InstructionsNo instructions recorded. Reason for Referral None Reported. Results Created Date Observation Date Name Description Value Unit Range Abnormal Flag Note LastModifiedBy Organization Detail LastModifiedTime 08/18/19 24 08/18/2023 hemog lobin + hemat ocrit , blood Hemoglobin 10.5 Not Available [address], [address] [place] [address] 08/18/2023 19:50:29 08/18/19 24 08/18/2023 hemog lobin + hemat ocrit , blood Hematocrit 31 Not Available [facility] - [address], [address] [place] [address] 08/18/2023 19:50:29 08/18/19 24 08/18/2023 BMP, serum or plasm a BUN 21 Not Available [facility] [address], [address] [place] [address] 08/18/2023 19:50:26 08/18/19 24 08/18/2023 BMP, serum or plasm a Ca 1.2 Not Available [facility] [address], [address] [place] [address] 08/18/2023 19:50:26 08/18/19 24 08/18/2023 BMP, serum or plasm a CI- 102 Not Available [facility] [address], [address] [place] [address] 08/18/2023 19:50:26 08/18/19 24 08/18/2023 BMP, serum or plasm a CRE 1.2 Not Available [facility] [address], [address] [place] [address] 08/18/2023 19:50:26 08/18/19 24 08/18/2023 BMP, serum or plasm a GLU 157 Not Available [facility] [address], [address] [place] [address] 08/18/2023 19:50:26 08/18/19 24 08/18/2023 BMP, serum or plasm a K+ 3.6 Not Available [facility] [address], [address] [place] [address] 08/18/2023 19:50:26 08/18/19 24 08/18/2023 BMP, serum or plasm a Na+ 141 Not Available [facility] [address], [address] [place] [address] 08/18/2023 19:50:26 08/18/19 24 08/18/2023 BMP, serum or plasm a tCO2 29 Not Available [facility] um[facility] [address] [facility], [place], [address] 08/18/2023 19:50:26 06/13/19 25 06/16/2024 CULTU RE, URINE , ROUTI NE culture, urine, routine SEE NOTE CULTU RE, URINE , ROUTI NE Micro Numbe r: [id number] Test Statu s: Final Speci men Sourc e: Urine Speci men Quali ty: Adequ ate Resul t: Mixed genit al mike isola umm. These super ficia l bacte tami are not indic ative of a urina ry tract infec tion. No furth er organ ism ident ifica tion is warra nted on this speci men. If clini jonathon indic ated, recol lect clean -catc h, mid-s tream urine and trans sean immed iatel y to Urine Cultu re Trans port Tube. Not Available [facility] [address] John [address], [place], [address], 06/16/2024 05:30:36 Result Notes None recorded. Medical Equipment None Reported. Allergies No known drug allergies Medications Name Sig Start Date Stop Date Status Note LastModified by Organization Details LastModified Time Augmentin 875 mg-125 mg tablet Take 1 tablet every 12 hours by oral route. 2022 active Not Available Not Available Not Avai lable neomycin-polym yxin-hydrocort 3.5 mg/mL-10,000 unit/mL-1 % ear solution PLACE THREE DROPS IN AFFECTED EAR(S) FOUR TIMES DAILY active Not Available Not Available No t Available prednisone 10 mg tablet active Not Available Not Available No t Available donepezil 5 mg tablet active Not Available Not Available Not Available loperamide 2 mg capsule active Not Available Not Available N ot Available cetirizine 10 mg tablet active Not Available Not Available No t Available Lidocaine Viscous 2 % mucosal solution active Not Available Not Available Not Available famotidine 40 mg tablet active Not Available Not Available No t Available sulfamethoxazo le 800 mg-trimethopri m 160 mg tablet Take 1 tablet every 12 hours by oral route for 7 days. active Not Available Not Available No t Available omeprazole 40 mg capsule,delaye d release active Not Available Not Available No t Available cyanocobalamin (vit B-12) 500 mcg tablet active Not Available Not Available N ot Available rifampin 150 mg capsule active Not Available Not Available N ot Available ethambutol 400 mg tablet active Not Available Not Available No t Available benzonatate 100 mg capsule Take 1 capsule 3 times a day by oral route for 7 days. 2022 active Not Available Not Available Not Avai lable furosemide 20 mg tablet active Not Available Not Available No t Available ondansetron 4 mg disintegrating tablet active Not Available Not Available Not Available cholecalcifero l (vitamin D3) 25 mcg (1,000 unit) capsule active Not Available Not Availabl e Not Available azithromycin 500 mg tablet active Not Available Not Availabl e Not Available mirtazapine 7.5 mg tablet TAKE ONE TABLET AT BEDTIME active Not Available Not Available No t Available FeroSul 325 mg (65 mg iron) tablet active Not Available Not Available Not Available [employer] COVID-19 Antigen Home Test kit active Not Available Not Available Not Available Vitals Date Recorded Body temperature Body weight Respiratory rate Heart rate Oxygen saturation Oxygen saturation in Arterial blood by Pulse oximetry Body height Systolic And Diastolic Provider Name and Address Organization Details Last Updated DateTime 5 98.3 [degF] 65179.2 4 g 18 /min 81 /min 95 % 95 % 157.48 cm 108/65 mm[Hg] Not Available [employer] 5 19:59:46 Date Recorded Body weight Oxygen saturation Oxygen saturation in Arterial blood by Pulse oximetry Heart rate Body height Respiratory rate Body temperature Systolic And Diastolic Provider Name and Address Organization Details Last Updated DateTime 4 62594.2 g 99 % 99 % 80 /min 157.48 cm 16 /min 98.5 [degF] 120/80 mm[Hg] Not Available [employer] - production 4 18:50:45 Date Recorded Body weight Respiratory rate Heart rate Body height Body temperature Oxygen saturation Oxygen saturation in Arterial blood by Pulse oximetry Systolic And Diastolic Provider Name and Address Organization Details Last Updated DateTime 4 14251.4 24 g 16 /min 68 /min 157.48 cm 97 [degF] 98 % 98 % 110/67 mm[Hg] Not Available [employer] - production 4 10:49:02 Date Recorded Respiratory rate Heart rate Oxygen saturation Oxygen saturation in Arterial blood by Pulse oximetry Body temperature Systolic And Diastolic Provider Name and Address Organization Details Last Updated DateTime 4 14 /min 80 /min 97 % 97 % 98.5 [degF] 125/74 mm[Hg] Not Available [employer] - production 4 18:56:22 Date Recorded Body temperature Oxygen saturation Oxygen saturation in Arterial blood by Pulse oximetry Respiratory rate Heart rate Systolic And Diastolic Provider Name and Address Organization Details Last Updated DateTime 4 97.2 [degF] 98 % 98 % 16 /min 78 /min 110/70 mm[Hg] Not Available [employer] - production 13:58:52 Social History None recorded. Functional Status None recorded. Mental Status None recorded. Family History Nothing Reported. Medical History No medical history recorded. Gynecological HistoryNo gynecological history recorded. Obstetrics History GPAL:G 0 P 0 0 0 0 Past Encounters Encounter ID Performer Location Encounter Start Date Encounter Closed Date Diagnosis/Indication Diagnosis SNOMED-CT Code Diagnosis ICD10 Code Diagnosis IMO Codes Diagnosis Note [id number] Austin Spivey MD [facility] - [address] [address] 02/23/2023 13:25:11 02/26/2023 10:45:12 Acute otitis media 7444493 H66.91 [id number] Slim Perez MD [address] [address] 04/15/2023 15:18:12 04/15/2023 22:39:59 Viral upper respiratory tract infection 351313418 J06.9 COVID/flu negative. Vitals stable with stable O2 sats. Supportive care. Discussed red flag signs for which to seek higher level of care. Cough 00816200 R05.9 Will rx Tessalsteve rmaos. Discussed red flag signs for which to seek higher level of care. [id number] Doug Donald MD [facility] - [address] [address] 08/18/2023 18:02:56 08/19/2023 10:55:43 Edema of left lower limb 553017510 R60.0 Patient with new extremity asymmetric edema. Advised that they call PCP in the AM to arrange for LE duplex ultrasound with doppler. No significan t s/sx of CHF or PE. Follow-up tab used to send message to care team. [id number] Katalina Lowery MD [facility] [address] [place] [phone] 09/15/2023 18:50:34 09/16/2023 22:48:03 Weakness present [id number] M62.81 [id number] Didi Will MD [facility] [address] [place] [address] 11/22/2023 10:48:43 11/22/2023 20:56:29 Swelling of bilateral lower limbs 021769038 M79.89 Evaluation in the field was performed by my shearer printed circuit boards colleague, as noted above, I provided real-time direction and supervisio n for this visit. 78yo F per PCP chart PMHx liver carcinoma, weight loss, hypoprotei nemia who was seen by PCP 11/14 for LE edema and recommende d to increase PO protein and elevated legs (per note). BODY BUILDER confirms very little PO intake (1/2 glass water per day). Request today placed for same symptoms, pt not adhering to rec to elevated legs or use Ensure high protein. No erythema, asymmetric swelling, or palpable cord. On shearer printed circuit boards eval VS wnl, exam notable for symmetric pitting edema to knees. POC labs done by shearer printed circuit boards w/ Cr 1.0 BUN 28 Hgb 10.8. Presentati on c/w LE edema 2/2 low protein and likely some portal HTN. Reinforce rec for high protein diet, leg elevation and/or wrapping and close PCP f/up. Defer diuretics given low fluid intake. PCP: please reach out to reassess LE edema and consider further work up We discussed the diagnostic uncertaint y of home visits and the risk associated with this. In this case, the patient and I felt this to be an acceptable and reasonable amount of risk given the benefit of avoiding an ED visit. We discussed the need to seek care urgently/e mergently in the setting of any new or worsening serious symptoms, shortness of breath, cough, chest pain, fever. [id number] Slim Perez MD [facility] [address] [place] [phone] 11/23/2023 18:56:20 11/23/2023 23:14:16 Swelling of bilateral lower limbs [id number] M79.89 78yo F per PCP chart PMHx liver carcinoma, weight loss, hypoprotei nemia who was seen by PCP 11/14 and subsequent ly 11/21 for LE edema and recommende d to increase PO protein and elevated legs (per note). BODY BUILDER confirms very little PO intake (1/2 glass water per day). Request today placed for same symptoms, pt not adhering to rec to elevated legs or use Ensure high protein. No erythema, asymmetric swelling, or palpable cord. On shearer printed circuit boards eval VS wnl, exam notable for symmetric pitting edema to knees. POC labs from yesterday notable for normal Police [employer]. Given similar presentati on c/w LE edema 2/2 low protein and likely some portal HTN, recommende d high protein diet, leg elevation and/or wrapping and close PCP f/up. Defer diuretics given low fluid intake. [id number] Austin Spivey MD [facility] [address] [place] [phone] 11/25/2023 13:58:41 11/25/2023 16:04:33 Chest pain 37481622 R07.9 Intermitte nt claudication 43920947 I73.9 [id number] Jim Monge MD [facility] [address] [place] [phone] 06/13/2024 19:59:42 06/13/2024 22:03:46 Urinary symptoms [id number] R39.9 As noted, we were called to see this patient regarding concerns of urinary discomfort and malodorous urine. Evaluation in the field was performed by my shearer printed circuit boards colleague, as noted above, I provided real-time direction and supervisio n for this visit. The evaluation revealed UA with LEs and nitrites, reassuring VS, and no overt CVAT. Impression :UTI, not likely pyelo or any complicati on of UTI. Plan:bactr imculturef /u pending course Primary care, considerch lior in call Dispositio n: We discussed the diagnostic uncertaint y of home visits and the risk associated with this. In this case, the patient and I felt this to be an acceptable and reasonable amount of risk given the benefit of avoiding an ED visit. We discussed the need to seek care urgently/e mergently in the setting of any new or worsening serious symptoms, particular ly fever, confusion, hypotensio n. Health Concerns Section Related Observation LastModified by Organization Detai ls LastModified Time None Recorded Concern Status LastModified by Organization Details LastModified Time None Recorded Advance Directives Directive None Recorded Payers Insurance Date Sequence Insurance Name Policy Number Policy Velasquez Covered Member ID Velasquez Member ID Guarantor Name 06/13/2024 1 [facility] - DOS ON OR AFTER 2022 - DUAL ELIGIBLE - ALF OPTIONS AND ONE CARE (MEDICARE REPLACEMENT/AD VANTAGE - HMO) Crystal Schuler [id number] Crystal Schuler Notes Date Note Type Note Provider Name and Address Organization Details Recorded Time 09/15/2023 text/html [facility] Nurse Triage Notes (Blanca Garza): Reason For Request: Pt's daughter reporting severe weakness and fever/chills and has lost her appetite today and yesterday Chief Complaints: Weakness/Lethargy, Fever/Chills PMH: Hypertension Allergies: No Known Comments: + chills and feels like head was burning. Temp 98.2 today. Symptoms started at 3pm. Eyes are appear red and swollen. Denies cough, sore throat, or body aches. Decreased appetite today. Denies shortness of breath. Had episode of midsternal chest pain earlier but resolved and felt unsteady due to weakness earlier. BLE edema today. [facility] [place]: presenting for constellation of sxs including puffy eyes, decreased appetite, some mild edema, weakness, some midsternal chest pain that resolved w gaviscon. NSTEMI in May. GERD on prilosec and famotidine. no smoking. flu covid neg.................... ....................... ....................... ....................... ....................... ....................... ....... Access Director Note From Florin Quiles: [facility] visit for elderly female patient with multiple complaints. Pt presents conscious and alert sitting in recliner in living room. Pt present with daughter and niece. Daughter called for visit today, noting when she went to visit patient she had some weakness, chills, and lower extremity edema. Pt also had headache earlier in the day for which she took tylenol and it improved, and also had some heartburn and chest discomfort which improved after gaviscon. Lower extremity edema improved after a footbath and elevation. Weakness improved on its own. Pt still feels cold. V/S taken and WNL. Pt afebrile. Lung sounds clear bilaterally. Rapid flu and covid swabs both negative. EKG completed and uploaded to [facility] for her review. Consulted with [facility] [place]. Lowery who advised no treatments needed at this time. Family encouraged to closely monitor pt and reviewed red flags for ED. Patient education provided. ....................... ....................... ....................... ....................... ....................... ....................... ... Disposition: Fulfilled Katalina Lowery MD [address] [place] [address],[address], [place], [address], [employer] 09/15/2023 22:00:27 11/22/2023 text/html [facility] Nurse Triage Notes (Tanya Lacey): Reason For Request: Patient has feet pain and swollen. Possible low proteins and water intake. Chief Complaints: Edema PMH: Hypertension Allergies: No Known Comments: c/o feet swelling and went to the doctor appointment and her protein is low and dehydrated on ating okay and just not drinking a lot of water and refusing to elevate her legsc/o little bit of pain, denies redness to area, sometimes unsteady on feet, Denies SOB/chest painPMH: Dementia, HTN, Cancerinfo provided by caregivereducated about response time and will place referralClarissa POLO Access Director POC Test Results from Saad Franklin [facility] (10:52:09) pH: 7.43 pH units pCO2: 47.4 mmHg pO2: 17.6 mmHg Na: 139 mmol/L K: 4.1 mmol/L iCa: 1.15 mmol/L Cl: 101 mmol/L TCO2: 31.5 mEq/L Hct: 32 % Hb: 10.8 g/dL Glu: 105 mg/dL Lac: 0.5 mmol/L Cr: 1.0 mg/dL BUN: 25 mg/dL A ....................... ....................... ....................... ....................... ....................... ....................... ... Access Director Note From Saad Franklin: Pt reports BLE edema for one month. Pt denies CP, SOB, PAREDES, f/n/v/d. Pt is alert, NAD. VSS. Afebrile. Non focal neuro exam. Lungs CTA. Benign ABD exam. +2 BLE pitting edema, pain with palpation. POC labs uploaded. Pt instructed to use her compression stockings, keep legs elevated, increase water intake, increase her protein intake/drink her max protein ensure drinks as directed. Pt advised to f/u with PCP today. Red flags reviewed. ....................... ....................... ....................... ....................... ....................... ....................... ... Disposition: Fulfilled Didi Will MD [address] [facility],[address], [place], [address], [employer] 11/22/2023 11:19:38 11/23/2023 text/html ROS as noted in the HPI HPI: HX: NSTEMI, Lung CA, Hypoalbuminemia.Patient concerned with discomfort as related to swelling of both ankles. Seen by PCP 11/15/23 with Pedal edema 1+ no orders at that time. ....................... ....................... ....................... ....................... ....................... ....................... ... [facility] Nurse Triage Notes (Jeanette Vences): Comments: CRD RN DID NOT NEED FURTHER INFO ....................... ....................... ....................... ....................... ....................... ....................... ... Baseline Information: Baseline Creatinine: 1.07 mg/dL ....................... ....................... ....................... ....................... ....................... ....................... ... Access Director Note From Saad Franklin: Pt seen by me yesterday for the same complaint. Daughter would like a wellness check today. Pt is still not wearing her compression stockings, elevating legs, drinking enough water and following the ensure directions. VSS. Afebrile. No change in edema. ....................... ....................... ....................... ....................... ....................... ....................... ... Disposition: Fulfilled Slim Perez MD [address] [place] [address],[address], [place], [phone], [employer] 11/23/2023 19:23:23 11/25/2023 text/html [facility] Nurse Triage Notes (Blanca Garza): Reason For Request: Pain in feet, feet are turning black, labored breathing Chief Complaints: Pain PMH: Hypertension, Severe Dementia, Cancer Allergies: No Known Comments: Daughter reports discoloration of feet this morning. Difficulty ambulating. Pain to bilateral feet. Woke up with pain to neck radiating down. Daughter noticed patient was short of breath with rest. patient c/o headache now. Denies increased edema. Patient with history of dementia. ....................... ....................... ....................... ....................... ....................... ....................... ... Access Director Note From Joaquim Parra: Dispatched for the call address for a patient with pain and discoloration to her feet. pt. was found baseline mentally with dementia walking around her apartment. pt. family noted that starting last night she noticed her mothers feet were turning purple and she was complaining of pain in those extremities. family also noted she was holding her chest earlier today c/o pain and having a difficult time breathing with a headache. which had subsided since arrival of the Access Director. no history of congestive heart failure noted.vitals assessed on scene and visual assessment of both lower extremities noted pedal edema with minor discoloration to both feet worse swelling in the left side. pt. noted pain with palpation. lung sounds clear. -chest pain at this time -sob at this time -dizziness -abd pain -nvd -blurred vision -bowel issues -urinary issues. [facility] [place] and noted with the decreased circulation to both feet and intermittent chest pain that she should be evaluated in the ER to make sure it was not anything cardiac decreasing blood flow to her extremities and also with a headache the risks increased as well. pt. assessment airway open and patent breathing non labored circulation +radial pulse -heent abnormalities -jvd -tracheal deviation +and= chest rise and fall abd soft and non tender pelvis in tact +cms in all extremities -stroke scale findings. [facility] contacted and a shearer printed circuit boards unit arrived on scene and took over patient care at this time . all times are approxreport completed by mary parra ....................... ....................... ....................... ....................... ....................... ....................... ... Disposition: Fulfilled Austin Spivey MD [address] [facility],[address], [place], [address], [facility] [employer] [facility] 11/25/2023 15:10:50 06/13/2024 text/html HPI: Call returned to Crystal Schuler to triage below. No plastics bench mechanic needed as this service writer advisor speaks Greenlandic. Reports having rib pain on right side x 3 days. Per pt was ill with ROMEL sx and congestion. Denies any cough. Denies any fever. Denies any redness or rash at site. Area is right above hip. Per pt was having foul odor and discomfort when passing urine. No N/V. Pt advised of disposition, [facility] Confirmed demographics and allergies. ....................... ....................... ....................... ....................... ....................... ....................... ... [facility] Nurse Triage Notes (Blanca Garza - RN): Chief Complaints: Urinary symptoms PMH: Hypertension, Cancer, Anemia PMH Reviewed at 06/13/2024 - 16:27 Allergies Reviewed at 06/13/2024 - 16:27 Comments: HPI reviewed- NE Access Director Organization Information for Harlan Chinchilla Business Legal Name: [employer] Address: [address] [place] [address] [place] [address], Manager Plumbing: Juan Carlos Zhou MD [facility] No.: [id number] Access Director POC Test Results from Harlan Chinchilla - BLS Urine Dipstick (19:45:00) Urine leukocytes: 15+ LALIT Urine nitrites: + NIT Urine urobilinogen: 0.2 URO Urine protein: 100++ PRO Urine pH: 5.0 pH Urine blood: - BLO Urine specific gravity: 1.030 SG Urine ketones: 15+ KET Urine bilirubin: 1+ ZAIRA Urine glucose: - GLU ....................... ....................... ....................... ....................... ....................... ....................... ... Access Director Note From Harlan Chinchilla: SC1 dispatched to the above address for the pt reporting rib pain and a possible UTI. Upon arrival the pt was found sitting in her chair with her BODY BUILDER at her side. The pt states she has pain under her right rib area and also stated she was in [place] about a week ago and came down with a cold and they gave her a liquid (guessing cough syrup) which helped with her cough. The pts daughter was not available to ask questions and BODY BUILDER was able to answer most of them. The pt was able to urinate into a hat and a clean catch was obtained and sample for culture was pulled and also a dip was preformed. Dr Monge was consulted and prescribed Bactrim PO was administered. The pt was advised of the warning signs, chest pain, severe shortness of breath , syncope and altered mental status. The pt and the BODY BUILDER understood the instructions and SC1 cleared the call. WRR. ....................... ....................... ....................... ....................... ....................... ....................... ... [facility] Consulted: Roderick Monge ....................... ....................... ....................... ....................... ....................... ....................... ... Disposition: Fulfilled HPI: Call returned to Crystal Schuler to triage below. No plastics bench mechanic needed as this service writer advisor speaks Greenlandic. Reports having rib pain on right side x 3 days. Per pt was ill with ROMEL sx and congestion. Denies any cough. Denies any fever. Denies any redness or rash at site. Area is right above hip. Per pt was having foul odor and discomfort when passing urine. No N/V. Pt advised of disposition, agrees to [facility] referral. Confirmed demographics and allergies. ....................... ....................... ....................... ....................... ....................... ....................... ... [facility] Nurse Triage Notes (Blanca Garza - RN): Chief Complaints: Urinary symptoms PMH: Hypertension, Cancer, Anemia PMH Reviewed at 06/13/2024: Allergies Reviewed at 06/13/2024: Comments: HPI reviewed- NE Access Director Organization Information for Harlan Chinchilla Legal Name: [employer]. Address: [address] [place] [address], Manager Plumbing: Juan Carlos Zhou MD CLIA No.: [id number] Access Director POC Test Results from Harlan Chinchilla Urine Dipstick (19:45:00) Urine leukocytes: 15+ LALIT Urine nitrites: + NIT Urine urobilinogen: 0.2 URO Urine protein: 100++ PRO Urine pH: 5.0 pH Urine blood: - BLO Urine specific gravity: 1.030 SG Urine ketones: 15+ KET Urine bilirubin: 1+ ZAIRA Urine glucose: - GLU Jim Monge MD [address] [place] [address],[address], [place], [address], [facility] 06/13/2024 21:22:16 OBGyn Episode No OBEpisode recorded.
--- OUTSIDE RECORDS SUMMARY | 2025-03-02 17:26 | XMS_ITS | Encounter Summary ---
Author Organization [employer] Address [address] [facility] [facility] [address] [place] [address] Care Team Providers Care Link Trainer Operator Name Role Phone Jefferson Sosa MD Primary Care Provider [phone] Reason for Visit * Reason Onset Date Comments Durable Medical Equipment 02/10/2024 Encounter Details Date Type Department Care Team (Late st Contact Info) Description 02/10/2024 Telephone [facility] [address] [place] [address] Jefferson Sosa MD [address] [place], [place] [phone] Durable Medical Equipment Social History Tobacco Use [...] 02/15/2024 9:30 AM EDT Rx generated through Currently and pending PCP signature. Informed Mason of rx in process. Mason agrees with plan. * Telephone Encounter - Sharon Pinto LPN - 02/11/2024 12:41 PM EDT Please review message below and advise . If agreed please review Dx for this request , Thank you Tc from Mason requesting arm rest for toilet that rest on the toilet bowl. Pt would like that faxedbailey [employer]. If any questions you can contact Mason at [phone]. [facility] Fac: [phone] * Telephone Encounter - Vinayak Schuler - 02/10/2024 11:42 AM EDT Tc from Mason requesting arm rest for toilet that rest on the toilet bowl. Pt would like that faxedto [employer]. If any questions you can contact Mason at [phone]. [facility] Fac: [phone] documented in this encounter Plan of Treatment Upcoming Encounters Date Type Department Care Team (Late st Contact Info) Description 03/15/2025 8:00 AM EST Office Visit [facility] [address] [place] [address] Nate White DDS [address] [place], [place] [phone] 03/29/2025 2:30 PM EST Office Visit [facility] [address] [place] [address] Jefferson Sosa MD [address] [place] [address] documented as of this encounter Visit Diagnoses Not on filedocumented in this encounter Additional Health Concerns Assessment Noted Time PHQ-9 Depression Total Score: 0 10/01/19 24 3:56 PM EDT documented as of this encounter Care Teams Link Trainer Operator Relationship Specialty Start Date End Date Jefferson Sosa MD [address] [place] [address] PCP - General Internal Medicine 05/17/13 [facility] 09/19/24 documented as of this encounter
--- OUTSIDE RECORDS SUMMARY | 2025-03-02 17:26 | XMS_ITS | Encounter Summary ---
Author Organization [employer] Address [address] [facility] [address] [place] [address] Care Team Providers Care Provisioning Analyst Name Role Phone Jefferson Sosa MD Primary Care Provider Reason for Visit * Reason Comments Med Change Request Encounter Details Date Type Department Care Team ([facility] st Contact Info) Description 01/23/2025 Refill [facility] [address] [place], [place] [phone] Jefferson Sosa MD [address] [place] [address] Depressive disorder Social History Tobacco Use Types [...] Office Visit [facility] [address] [place] [address] Nate White DDS [address] [place] [address] 03/29/2025 2:30 PM EST Office Visit [facility] [address] [place] [address] Jefferson Sosa MD [address] [place] [address] documented as of this encounter Visit Diagnoses Diagnosis Depressive disorder Depressive disorder, not elsewhere classified documented in this encounter Additional Health Concerns Assessment Noted Time PHQ-9 Depression Total Score: 0 10/01/19 24 3:56 PM EDT documented as of this encounter Care Teams Provisioning Analyst Relationship Specialty Start Date End Date Jefferson Sosa MD [address] [place] [address] PCP - General Internal Medicine 05/17/13 [facility] 09/19/24 documented as of this encounter
[2025-03-02 20:29] LABS: CDiff Gene PCR NEGATIVE (Negative)
[2025-03-02] MEDS: Bismuth Subsalicylate 262 MG TABLET 524 MG PO (20:51)
[2025-03-02 21:45] VITALS: BP 148/64; PULSE 67; RESP 16; TEMP 37; O2SAT 100
[2025-03-03 10:29] LABS: E. coli EAEC Not Detected (Not Detect.); E. coli EPEC Detected (Not Detect.); E. coli ETEC Not Detected (Not Detect.); E. coli STEC Not Detected (Not Detect.); Shigella sp./EIEC Not Detected (Not Detect.)
== END 2025-03-02 21:46 | disposition home or self-care (01) ==
PROVIDERS: Nurse Practitioner Family; Emergency Provider Emergency Medicine
DX: R11.2 Nausea with vomiting, unspecified (principal); R19.7 Diarrhea, unspecified; I25.10 Atherosclerotic heart disease of native coronary artery without angina pectoris; F03.90 Unspecified dementia, unspecified severity, without behavioral disturbance, psychotic disturbance, mood disturbance, and anxiety; I10 Essential (primary) hypertension; Z79.899 Other long term (current) drug therapy
CPT/HCPCS: 36415; 80048; 80076; 83735; 85025; 87493; 87507; 96360; 96361; 99284

== ENCOUNTER 2025-03-05 13:13 | Emergency (ER) | payer OTHER, SELFPAY ==
--- NOTE | ~2025-03-05 | CT_ITS ---
CLINICAL HISTORY: weakness, abnormal CXR CT chest without contrast: Comparison: CR/SR - XR CHEST 1 VIEW - 03/05/25 15:[address]/REG/VA/SR - CT CHEST WITHOUT IV CONTRAST - 12/20/23 08:56 EDT Findings: Subcentimeter calcification of the right thyroid lobe. No nodules which meet criteria for further workup. No lymphadenopathy. Mediastinum and heart: No cardiomegaly. Moderate calcified atherosclerotic disease of the thoracic aorta no thoracic aortic aneurysm. Coronary artery calcifications. Lungs: Again seen is a thick-walled cavitary lesion in the right lower lobe which measures at least 3.4 x 2.5 cm on image 75, series 23. This has mildly decreased in size compared to prior CT. Multiple tree-in-bud nodules and nodular opacities throughout the lung parenchyma, lower lung predominant. Compared to prior CT, there are more nodular opacities within bilateral lower lobes. There is a 2.0 x 1.5 cm (series 23, image 111) opacity in the left lower lobe. There is a subpleural opacity in the lingula measuring 1.2 cm (series 23, image 114). There is a 2.2 cm subpleural opacity in the right lower lobe (series 23, image 122). Bones and soft tissues: Multilevel degenerative changes. No acute fracture. Upper abdomen: Thickening of the left adrenal gland. The liver lesion is better seen on prior contrast-enhanced abdominal CT. Impression: Mildly decreased size of the right lower lobe cavitary lesion. Multifocal bilateral lung nodules and tree-in-bud nodularity has increased compared to prior exam. Overall, these findings are suspicious for atypical mycobacterial infection. Superimposing acute infection can not be excluded. This document has been electronically signed by: Carline Hurt MD on 03/05/2025 19:18:09
--- NOTE | ~2025-03-05 | XR_ITS ---
EXAMINATION: XR CHEST CLINICAL INFORMATION: weakness COMPARISON: July 12, 2024 TECHNIQUE: Frontal view of the chest was obtained. FINDINGS: Pulmonary reticular nodular pattern. Bilateral apical lung scarring. Linear and patchy opacities more confluent in the left lower hemithorax. No gross pneumothorax or pleural effusion. Cardiomediastinal silhouette size is normal. Calcified plaque thoracic aorta. Multilevel thoracic spondylosis. Osteopenia versus osteoporosis. Degenerative changes in the right acromioclavicular joint. XR/XR chest 1V IMPRESSION: Acute on chronic airspace disease. Prior CT chest demonstrated a cavitary lesion in the right lung no fully depicted on the x-ray. Electronically signed by: Timoteo Keys MD 03/05/2025 03:28 PM EDT
--- NOTE | ~2025-03-05 | CT_ITS ---
CLINICAL HISTORY: falls, weakness CT Cervical Spine without contrast Comparison: CT/SR - CT CERVICAL SPINE WO IV CON - 07/12/24 18:34 EST Findings: Normal vertebral body alignment. Vertebral body heights are maintained. No acute fracture or traumatic subluxation. Multilevel degenerative disc disease worst at C5-C6. 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 Moderate spinal narrowing at the level of C3-C4 secondary to thickening of the ligamentum flavum and degenerative disc disease. No high-grade spinal canal stenosis. The visualized lung apices are clear. 6 mm calcification in the right thyroid lobe which does not require further follow-up. Impression: No acute fracture or traumatic subluxation of the cervical spine. Multilevel degenerative changes of the cervical spine. This document has been electronically signed by: Carline Hurt MD on 03/05/2025 19:05:13
--- NOTE | ~2025-03-05 | CT_ITS ---
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 Moderate prominence of the sulci and ventricles in a generalized pattern. Multifocal white matter hypodensities most likely secondary to advanced chronic ischemic small vessel disease. No large vessel territory infarct. No acute intracranial hemorrhage. No mass effect, midline shift, or herniation. The pituitary gland and sella are unremarkable. The cerebellar tonsils are appropriately positioned. Orbits: Unremarkable Paranasal sinuses: Well aerated. The mastoid air cells are well aerated. The soft tissues are unremarkable. No acute displaced calvarial fracture. Impression: No acute intracranial abnormality. This document has been electronically signed by: Carline Hurt MD on 03/05/2025 19:03:54
[2025-03-05 13:22] VITALS: BP 116/78; PULSE 72; O2SAT 97
[2025-03-05 13:30] VITALS: BP 110/53; PULSE 66; RESP 16; TEMP 36.6; O2SAT 97; BMI 18.0
--- NOTE | 2025-03-05 14:05 | ECG_ITS ---
Test Reason : dizziness Blood Pressure : */* mmHG Vent. Rate : 60 BPM Atrial Rate : 60 BPM P-R Int : 130 ms QRS Dur : 98 ms QT Int : 434 ms P-R-T Axes : 56 -20 22 degrees QTcB Int : 434 ms Normal sinus rhythm Incomplete right bundle branch block Borderline ECG When compared with ECG of 13-Jul-2024 01:16, No significant change was found Referred By: Maribel Lee Electronically Signed By: ISSAC SOUZA
[2025-03-05 14:07] LABS: Glucose, Whole Blood 141 mg/dL (60-115)
[2025-03-05] MEDS: Lactated Ringers 1,000 ML 999 ML IV (14:13)
[2025-03-05 14:30] VITALS: BP 113/57; PULSE 58; RESP 15; TEMP 36.6; O2SAT 96
[2025-03-05 14:32] LABS: MANUAL DIFF FLAG NO
[2025-03-05 14:35] LABS: Hematocrit 37.8 % (37.0-47.0); Hemoglobin 11.9 g/dl (12.0-16.0); Imm Gran Abs Auto 0.00 X10*3/uL (0.00-0.03); Imm Gran Pct Auto 0.0 % (0.0-0.4); Lymphocytes Absolute Auto 0.5 X10*3/uL (1.2-4.9); Mean Corpuscular HGB Conc 31.5 g/dl (31.0-35.0); Mean Corpuscular Hemoglobin 28.4 pg (27.0-33.0); Mean Corpuscular Volume 90.2 fL (80.0-98.0); NRBC Abs Auto 0.000 X10*3/uL (0.0-0.012); NRBC Pct Auto 0.0 /100WBC (0.0-0.2); Platelet Count 260 X10*3/uL (160-400); Red Blood Count 4.19 X10*6/uL (4.20-5.50); White Blood Count 2.7 X10*3/uL (4.8-10.8)
[2025-03-05 14:35] LABS: VBG HCO3 32 mmol/L (22-26); VBG O2 % Saturation 88.0 %
[2025-03-05 14:35] LABS: Venous Blood Gas Refer to POC result
[2025-03-05 14:41] LABS: INTERNATIONAL NORM RATIO 1.1 (0.9-1.1); Prothrombin Time 13.1 SEC (10.9-12.4)
[2025-03-05 14:53] LABS: Ammonia 21 umol/L (13-55)
[2025-03-05 15:02] LABS: Troponin-I High Sensitivity 3.5 ng/L (<3.5-17.0)
[2025-03-05 15:10] LABS: Alanine Aminotransferase < 6 U/L (0-31); Albumin Level 4.0 g/dL (3.5-5.0); Alkaline Phosphatase 98 U/L (39-117); Anion Gap 11 (12-20); Aspartate Amino Transferase 18 U/L (5-31); Blood Urea Nitrogen 16 mg/dL (9-16); Calcium 9.2 mg/dL (8.4-10.2); Carbon Dioxide 29 mmol/L (22-29); Chloride 102 mmol/L (96-108); Creatinine Clr Calc Pharmacy 36.9; Estimated Glomerular Filt Rate 58; Lipase < 4 U/L (8-78); Magnesium 2.0 mg/dL (1.6-2.6); Potassium 2.8 mmol/L (3.3-5.1); Sodium 139 mmol/L (135-145); Total Protein 8.6 g/dL (6.5-8.0)
[2025-03-05 15:16] LABS: Procalcitonin 0.08 ng/mL
[2025-03-05 15:45] LABS: Resp Syncy Virus RNA Qual PCR NEGATIVE (Negative); SARS COV2 PCR INHOUSE NEGATIVE (Negative)
--- NOTE | 2025-03-05 16:06 | MHC.CM.ED ---
Patient came to ER with AMS. Dr Lee requesting more information on patient's baseline and medical history. Patient is active with [facility]. Spoke with Lisa at [facility]. 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 It is her niece Kathie. Kathie can be reached at [phone]. Also has custodial through [facility]. Uses a wheelchair/rollator walker/cane for mobility. [facility] helps with med management. Kathie has recently reported some memory and mobility issues with patient. Ronak POLO and Dr Jesus wei. Continue to monitor for d/c needs.
--- NOTE | 2025-03-05 16:13 | ED.WEAKNESS ---
HPI - Weakness General Chief complaint: Dizziness Stated complaint: headache, confusion Time Seen by Provider: 03/05/25 13:52 Source: patient, EMS and old records reviewed Mode of arrival: EMS Limitations: altered mental status History of Present Illness ED Provider: BARTOLO TESFAYE Narrative: 79 yo female who lives alone with PMH of GERD, anemia, CKD, ALISSA, HTN, falls, dysphagia, CAD here with c/o possible weakness and behavior changes x 1 week. It is unclear what happened - she lives alone and has 35.5 hours of [employer]IL[employer]. The patient tells me when she walks she is dizzy. She told RN she had dark stool but then stated they were yellow. She is confused. She denies fevers, cough, n/v, pain. She states she feels weak and dizzy when she tries to stand. Apparently an poker manager did some sort of a wellness check and found her to be off her baseline. MD Complaint: generalized weakness Onset (ago): week(s) (1) Duration: progressively worsening Location: generalized Migration: none Severity: moderate Quality: other Relieving factors: movement Exacerbating factors: rest Context: other Associated symptoms: loss of appetite Related Data Home Medications ?Medication ?Instructions ?Recorded ?Confirmed cholecalciferol (vitamin D3) 25 1 tab PO DAILY 07/05/21 03/06/25 mcg (1,000 unit) tablet cyanocobalamin (vitamin B-12) 500 1 tab DAILY 07/05/21 03/06/25 mcg tablet cetirizine 10 mg tablet 1 tab PO DAILY PRN Allergy Symptoms 07/23/21 03/06/25 donepezil 5 mg tablet 5 mg PO BEDTIME 02/12/22 03/06/25 ferrous sulfate 325 mg (65 mg 325 mg PO DAILY 05/25/23 03/06/25 iron) tablet mirtazapine 7.5 mg tablet 7.5 mg PO BEDTIME 07/13/24 03/06/25 omeprazole 40 mg capsule,delayed 40 mg PO BID PRN acid 07/13/24 03/06/25 release reflux/heartburn Previous Rx's ?Medication ?Instructions ?Recorded acetaminophen 325 mg tablet 650 mg (2 x 325 mg) PO Q6H PRN 07/14/24 Pain, Mild 1-3,Fever,Headache #60 tabs docusate sodium 100 mg capsule 100 mg PO BID #60 caps 07/14/24 (Colace) enoxaparin 40 mg/0.4 mL 40 mg (0.4 mL) subcut Q24H #40 mL 07/14/24 subcutaneous syringe magnesium hydroxide 400 mg/5 mL 30 ml PO DAILY PRN Constipation 07/14/24 oral suspension (Milk of Magnesia) #30 mL melatonin 3 mg tablet 6 mg (2 x 3 mg) PO BEDTIME PRN 07/14/24 Insomnia #30 tabs naloxone 0.4 mg/mL injection 0.04 mg (0.1 mL) IVPUSH Q5M PRN 07/14/24 solution Excessive sedation or RR < 8 #10 mL oxycodone 5 mg tablet 5 mg PO Q8H PRN pain #12 tabs 07/17/24 famotidine 40 mg tablet 40 mg PO BEDTIME PRN acid 08/23/24 reflux/heartburn #30 tabs Allergies Allergy/AdvReac Type Severity Reaction Status Date / Time No Known Allergies (No Known Allergy Verified 03/05/25 13:54 Allergies*) Review of Systems Review of Systems: ROS unable to be obtained due to altered mental status [facility] Past Medical History Source: old records reviewed Medical History ELIF (iron deficiency anemia) CKD (chronic kidney disease) Sore throat 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 Hemoptysis Lymphadenopathy Injury of right knee Elevated blood sugar Chronic renal failure Renal cyst Vitamin deficiency, unspecified Allergic rhinitis Depressive disorder Osteoarthritis Obesity HTN (hypertension) Anemia Surgical History History of esophagogastroduodenoscopy (EGD) (~2017) History of section History of liver biopsy (~2021) Family History Family History Father Cancer Mother Cancer Paternal Grandmother Cancer Social History Social History Household Members: Unknown / Unable to assess Housing: Apartment Are you a primary customer care representative to a significant other at home: No Do you presently have visiting nurse or other home services: Yes Alcohol intake: never Patient Tobacco Use Status: Never used Tobacco Smoked in Last 30 Days: No Use of substances other than those prescribed or required for medical reasons: No Advance Directives: Yes Advance Directives Information Provided: No Advance Directives on File: No Do you have a plan to hurt others: No Plan service: No Current occupational status: retired and disabled Physical Exam Vital Signs: Vital Signs: Last Vital Signs Temp 97.5 F 03/06/25 13:30 Pulse 52 03/06/25 13:30 Resp 16 03/06/25 13:30 BP 109/58 L 03/06/25 13:30 Pulse Ox 99 03/06/25 13:30 O2 Del Method Room Air 03/06/25 13:30 BMI result Body Mass Index 18.0 Appearance: Alert. Oriented X to self and knows it is february but not day and she is not clear where she is and where she lives. No acute distress. Eyes: Pupils equal, round and reactive to light. ENT: Pharynx dry MM Neck: Normal inspection. Neck supple. CVS: Normal heart rate and rhythm. Pulses normal. Respiratory: No respiratory distress. Breath sounds normal. Abdomen: Soft and nontender. Skin: Skin warm and dry. Normal skin color. Extremities: No lower extremity edema. Neuro: Oriented X 1.5. No motor deficit. No sensory deficit. diffusely weak but not focal Course Course Course Narrative: given CXR I am ordering CT head/spine/chest infection suspected at 420pm - IV ceftriaxone ordered Reevaluation(s) Reevaluation #1: Physician observation continued. Uneventful night. Vital signs stable. No complaints from nursing overnight. Med reconciliation reviewed and done. Patient to be discharged home with VNA services. Will continue to monitor as we await transportation Time: 12:40 Reevaluation #2: 03/06/25 1330 BARTOLO physician observation ended. patient discharged home. Medications Administered Discontinued Medications Generic Name Dose Route Start Last Admin Trade Name Freq PRN Reason Stop Dose Admin Acetaminophen 975 mg 03/05/25 21:10 03/05/25 21:39 Acetaminophen 325 Mg Tablet PO 03/05/25 21:11 Not Given ONCE ONE Lactated Ringer's 1,000 mls @ 999 mls/hr 03/05/25 14:02 03/05/25 15:14 Lr IV 03/05/25 15:02 Infused .Q1H1M ONE Infusion Potassium Chloride 10 meq in 100 mls @ 100 mls/hr 03/05/25 15:15 03/06/25 01:31 Potassium Chloride/H20 IV 03/05/25 19:14 Infused Q1H BRENDA Infusion Ceftriaxone Sodium 1 gm/ 50 mls @ 100 mls/hr 03/05/25 16:01 03/05/25 17:50 Sodium Chloride IV 03/05/25 16:30 Infused ONCE ONE Infusion Olanzapine 5 mg 03/05/25 21:06 03/05/25 21:30 Olanzapine 10 Mg Vial IM 03/05/25 21:07 5 mg ONCE ONE Administration Potassium Chloride 20 meq 03/05/25 15:09 03/05/25 17:35 Potassium Chloride Er 20 Meq Tab.Er.Prt PO 03/05/25 15:10 20 meq ONCE ONE Administration Medical Decision Making Medical Decision Making MDM Narrative: 79 yo female who lives alone with PMH of GERD, anemia, CKD, ALISSA, HTN, falls, dysphagia, CAD here with c/o confusion, weakness, possibly one week - at this time wide differential including metabolic, trauma, dementia, urinary or respiratory pathology. I am involving CM to help with some background history given it is limited. CT chest did show cavitary lesion. This is chronic. I did review her CT back in 2023. Patient has had evaluation by Infectious Disease. This is a non tuberculosis mycobacterium infection. I discussed the case with the Kathie her care support representative who is also her niece. She stated that patient has been increasingly weak and had diarrhea lately. At baseline she does have significant advanced dementia. She does have a son who makes decisions for her that lives in [place]. She provided me with the number [phone]. I attempted to contact his phone number. However unfortunately were unable to get a hold of her son. Unable to confirm code status due to dementia and inability to reach HCP. We will plan to keep patient is here as Phys Obs for case management. Kathie concerned that patient may need increase nursing care at home. She has fallen at night time when she is not there. Patient was actively trying to get out of bed and fighting nursing staff at this time despite redirection unable to calm patient down. We will plan to give patient a dose of IM Zyprexa. Differential Diagnosis Differential Diagnoses: The differential diagnosis associated with the presentation includes metabolic, ICH, stroke, dehydration, anemia, urinary pathology, respiratory illness Admission/Observation Consideration of admission/observation: Escalation of care including admission/observation considered Lab Data MDM Lab Attestation statement: I reviewed the patient's lab results. 03/05/25 14:21 03/06/25 01:36 Labs: Lab Results 03/05/25 03/05/25 03/05/25 Range/Units 14:03 14:21 14:31 WBC 2.7 L (4.8-10.8) X10*3/uL RBC 4.19 L (4.20-5.50) X10*6/uL Hgb 11.9 L (12.0-16.0) g/dl Hct 37.8 (37.0-47.0) % MCV 90.2 (80.0-98.0) fL MCH 28.4 (27.0-33.0) pg MCHC 31.5 (31.0-35.0) g/dl RDW 13.3 (11.0-16.0) % Plt Count 260 (160-400) X10*3/uL MPV 9.5 (9.4-12.3) fL Immature Gran % (Auto) 0.0 (0.0-0.4) % Neut % (Auto) 69.4 (45-73) % Lymph % (Auto) 19.8 L (20-40) % [place] % (Auto) 9.7 (2-11) % Eos % (Auto) 0.7 (0-4) % Baso % (Auto) 0.4 (0-2) % Lymph # (Auto) 0.5 L (1.2-4.9) X10*3/uL [place] # (Auto) 0.3 (0.1-1.2) X10*3/uL Eos # (Auto) 0.0 (0.0-0.4) X10*3/uL Baso # (Auto) 0.0 (0.0-0.2) X10*3/uL Abs Immat Gran (auto) 0.00 (0.00-0.03) X10*3/uL Absolute Neuts (auto) 1.9 L (2.0-8.3) x10*3/uL Absolute Nucleated RBC 0.000 (0.0-0.012) X10*3/uL Nucleated RBC % (auto) 0.0 (0.0-0.2) /100WBC PT 13.1 H (10.9-12.4) SEC INR 1.1 (0.9-1.1) VBG pH 7.45 H (7.32-7.43) VBG pCO2 46 mmHg VBG pO2 61 mmHg VBG HCO3 32 H (22-26) mmol/L VBG O2 Saturation 88.0 % VBG Base Excess 7.3 mmol/L Sodium 139 (135-145) mmol/L Potassium 2.8 L* D (3.3-5.1) mmol/L Chloride 102 (96-108) mmol/L Carbon Dioxide 29 (22-29) mmol/L Anion Gap 11 L (12-20) BUN 16 (9-16) mg/dL Creatinine 0.93 (0.5-1.4) mg/dL Estim Creat Clear Calc 36.9 Estimated GFR 58 POC Glucose 141 H (60-115) mg/dL Random Glucose 138 H (60-115) mg/dL Lactic Acid 0.9 (0.5-2.0) mmol/L Calcium 9.2 D (8.4-10.2) mg/dL Magnesium 2.0 (1.6-2.6) mg/dL Total Bilirubin 0.5 (0.0-1.0) mg/dL Direct Bilirubin 0.2 (0.0-0.5) mg/dL AST 18 (5-31) U/L ALT < 6 (0-31) U/L Alkaline Phosphatase 98 (39-117) U/L Ammonia 21 (13-55) umol/L Total Creatine Kinase 40 (26-140) U/L Troponin I High Sens 3.5 (<3.5-17.0) ng/L C-Reactive Protein 5.84 H (< or = 0.50) mg/dL Total Protein 8.6 H (6.5-8.0) g/dL Albumin 4.0 (3.5-5.0) g/dL Lipase < 4 L (8-78) U/L Procalcitonin 0.08 ng/mL TSH 1.06 (0.32-4.0) uIU/mL Urine Color Urine Appearance Urine pH (5.0-9.0) Ur Specific [place] (1.005-1.025) Urine Protein (Neg-Trace) mg/dL Urine Glucose (UA) (Negative) mg/dL Urine Ketones (Negative) mg/dL Urine Blood (Negative) Urine Nitrite (Negative) Ur Leukocyte Esterase (Negative) Urine RBC (0-2) /HPF Urine WBC (0-5) /HPF Ur Squamous Epith Cells (0-2) /HPF Urine Bacteria (None Seen) Hyaline Casts (0-2) /LPF Influenza Type A (PCR) (Negative) Influenza Type B (PCR) (Negative) RSV RNA Qual (PCR) (Negative) SARS-CoV-2 RNA (RT-PCR) (Negative) 03/05/25 03/06/25 03/06/25 Range/Units 15:00 01:22 01:36 WBC (4.8-10.8) X10*3/uL RBC (4.20-5.50) X10*6/uL Hgb (12.0-16.0) g/dl Hct (37.0-47.0) % MCV (80.0-98.0) fL MCH (27.0-33.0) pg MCHC (31.0-35.0) g/dl RDW (11.0-16.0) % Plt Count (160-400) X10*3/uL MPV (9.4-12.3) fL Immature Gran % (Auto) (0.0-0.4) % Neut % (Auto) (45-73) % Lymph % (Auto) (20-40) % [place] % (Auto) (2-11) % Eos % (Auto) (0-4) % Baso % (Auto) (0-2) % Lymph # (Auto) (1.2-4.9) X10*3/uL [place] # (Auto) (0.1-1.2) X10*3/uL Eos # (Auto) (0.0-0.4) X10*3/uL Baso # (Auto) (0.0-0.2) X10*3/uL Abs Immat Gran (auto) (0.00-0.03) X10*3/uL Absolute Neuts (auto) (2.0-8.3) x10*3/uL Absolute Nucleated RBC (0.0-0.012) X10*3/uL Nucleated RBC % (auto) (0.0-0.2) /100WBC PT (10.9-12.4) SEC INR (0.9-1.1) VBG pH (7.32-7.43) VBG pCO2 mmHg VBG pO2 mmHg VBG HCO3 (22-26) mmol/L VBG O2 Saturation % VBG Base Excess mmol/L Sodium 141 (135-145) mmol/L Potassium 4.4 D (3.3-5.1) mmol/L Chloride 108 (96-108) mmol/L Carbon Dioxide 24 (22-29) mmol/L Anion Gap 13 (12-20) BUN 12 (9-16) mg/dL Creatinine 0.80 (0.5-1.4) mg/dL Estim Creat Clear Calc 42.9 Estimated GFR > 60 POC Glucose (60-115) mg/dL Random Glucose 68 (60-115) mg/dL Lactic Acid (0.5-2.0) mmol/L Calcium 8.8 (8.4-10.2) mg/dL Magnesium (1.6-2.6) mg/dL Total Bilirubin 0.4 (0.0-1.0) mg/dL Direct Bilirubin (0.0-0.5) mg/dL AST 15 (5-31) U/L ALT < 6 (0-31) U/L Alkaline Phosphatase 82 (39-117) U/L Ammonia (13-55) umol/L Total Creatine Kinase (26-140) U/L Troponin I High Sens (<3.5-17.0) ng/L C-Reactive Protein (< or = 0.50) mg/dL Total Protein 7.3 (6.5-8.0) g/dL Albumin 3.3 L (3.5-5.0) g/dL Lipase (8-78) U/L Procalcitonin ng/mL TSH (0.32-4.0) uIU/mL Urine Color Yellow Urine Appearance Clear Urine pH 6.5 (5.0-9.0) Ur Specific [place] <= 1.005 (1.005-1.025) Urine Protein Negative (Neg-Trace) mg/dL Urine Glucose (UA) Negative (Negative) mg/dL Urine Ketones Trace (Negative) mg/dL Urine Blood Negative (Negative) Urine Nitrite Negative (Negative) Ur Leukocyte Esterase Small (1+) H (Negative) Urine RBC 0-2 (0-2) /HPF Urine WBC 6-10 H (0-5) /HPF Ur Squamous Epith Cells 0-2 (0-2) /HPF Urine Bacteria None Seen (None Seen) Hyaline Casts 0-2 (0-2) /LPF Influenza Type A (PCR) NEGATIVE (Negative) Influenza Type B (PCR) NEGATIVE (Negative) RSV RNA Qual (PCR) NEGATIVE (Negative) SARS-CoV-2 RNA (RT-PCR) NEGATIVE (Negative) Independent Interpretation I performed an independent interpretation of an: EKG and Plain X-Ray (?abnormality) Interpretation: Rate: 60 Rhythm: NSR Pony: left Normal P waves. Normal LISSET. Normal QRS complex. ST T wave : inverted t wave V1, no FRANCI qTC: 434 prior studies: no acute ischemia The study has been interpreted contemporaneously by me. . Radiology Impression Discussion of test interpretation with radiology: I have reviewed the radiologist's reading. Independent Historian Clinical information obtained from an independent historian. History obtained from or confirmed by: EMS External Record Review External record reviewed: Outpatient record Discharge Plan Discharge Clinical Impression: Weakness, Diarrhea, Dementia Patient Disposition: Home, Self-Care Additional Instructions: You were evaluated in the ED due to dizziness, diarrhea. Please follow up with your primary care doctor to ensure resolution of your symptoms. Please return to the ED if you experience worsening dizziness, worsening diarrhea, fevers over 100.4, inability to have a bowel movement, inability to pass gas from your bottom, chest pain, shortness of breath or any new/worsening/concerning symptoms Prescriptions: No Action famotidine 40 mg tablet 40 mg PO BEDTIME PRN (Reason: acid reflux/heartburn) Qty: 30 6RF cyanocobalamin (vitamin B-12) 500 mcg tablet 1 tab DAILY cholecalciferol (vitamin D3) 25 mcg (1,000 unit) tablet 1 tab PO DAILY cetirizine 10 mg tablet 1 tab PO DAILY PRN (Reason: Allergy Symptoms) ferrous sulfate 325 mg (65 mg iron) tablet 325 mg PO DAILY mirtazapine 7.5 mg tablet 7.5 mg PO BEDTIME omeprazole 40 mg capsule,delayed release(DR/EC) 40 mg PO BID PRN (Reason: acid reflux/heartburn) enoxaparin 40 mg/0.4 mL Syringe 40 mg subcut Q24H Qty: 40 0RF acetaminophen 325 mg Tablet 650 mg PO Q6H PRN (Reason: Pain, Mild 1-3,Fever,Headache) Qty: 60 0RF naloxone 0.4 mg/mL Solution 0.04 mg IVPUSH Q5M PRN (Reason: Excessive sedation or RR < 8) Qty: 10 0RF melatonin 3 mg Tablet 6 mg PO BEDTIME PRN (Reason: Insomnia) Qty: 30 0RF magnesium hydroxide [Milk of Magnesia] 400 mg/5 mL Suspension 30 ml PO DAILY PRN (Reason: Constipation) Qty: 30 0RF docusate sodium [Colace] 100 mg capsule 100 mg PO BID Qty: 60 0RF oxycodone 5 mg tablet 5 mg PO Q8H PRN (Reason: pain) Qty: 12 0RF Rx Instructions: Partial Fill upon patient request. donepezil 5 mg tablet 5 mg PO BEDTIME Referrals: [facility] [Outside] Referral Note: Asking agency to add physical therapy to services. Interventions: ED Discharge Assessment Last Done: 03/06/25 13:30 Discharge Date/Time: 03/06/25 13:30 Print Language: Chinese
[2025-03-05] MEDS: Potassium Chloride/H20 10 MEQ/100 ML PIGGYBACK 100 MEQ IV (17:29)
[2025-03-05] MEDS: Potassium Chloride ER 20 MEQ TAB.ER.PRT PO (17:35)
--- NOTE | 2025-03-05 18:00 | PC.NURSE ---
Rate of IV potassium slowed due to pt c/o burning.
--- OUTSIDE RECORDS SUMMARY | 2025-03-05 18:04 | XMS_ITS | Encounter Summary ---
Author Organization [employer] Address [address] [place] [address] [address] [place] [address] Care Team Providers Care Senior Android Software Engineer Name Role Phone Jefferson Sosa MD Primary Care Provider [phone] Reason for Visit * Reason Comments Med Refill Encounter Details Date Type Department Care Team (Late Contact Info) Description 10/19/2022 Refill [facility] MED & PEDS [address] [place], [place] [phone] Jefferson Sosa MD [address] [place], [place] [phone] Epigastric pain; Vitamin D deficiency Social History [...] Upcoming Encounters Date Type Department Care Team ([facility] Contact Info) Description 03/15/2025 8:00 AM EST Office Visit [facility] ADULT DENTAL [address] [place] [address] Nate White DDS [address], [place] [phone] 03/29/2025 2:30 PM EST Office Visit [facility] MED & PEDS [address], [place] [phone] Jefferson Sosa MD [address] [place] [address] documented as of this encounter Visit Diagnoses Diagnosis Epigastric pain Abdominal pain, epigastric Vitamin D deficiency documented in this encounter Care Teams Senior Android Software Engineer Relationship Specialty Start Date End Date Jefferson Sosa MD [address] [facility] [place] [address] PCP - General Internal Medicine 05/17/13 [facility][Note 3] 09/19/24 documented as of this encounter
--- OUTSIDE RECORDS SUMMARY | 2025-03-05 18:04 | XMS_ITS | Encounter Summary ---
Author Organization [employer] Address [address] [facility] [address] [place] [address] Care Team Providers Care Financial Analyst Name Role Phone Jefferson Sosa MD Primary Care Provider [phone] Reason for Visit * Reason Comments Med Refill Encounter Details Date Type Department Care Team (Late st Contact Info) Description 01/12/2025 Refill [facility] MED & PEDS [address] [place], [place] [phone] Jefferson Sosa MD [address] [place] [address] Social History Tobacco Use Types Packs/Day Years [...] Description 03/15/2025 8:00 AM EST Office Visit [facility] ADULT DENTAL [address] [place] [address] Nate White DDS [address] [place] [address] 03/29/2025 2:30 PM EST Office Visit [facility] MED & PEDS [address] [place] [address] Jefferson Sosa MD [address] [place] [address] documented as of this encounter Visit Diagnoses Not on filedocumented in this encounter Additional Health Concerns Assessment Noted Time PHQ-9 Depression Total Score: 0 10/01/19 24 3:56 PM EDT documented as of this encounter Care Teams Financial Analyst Relationship Specialty Start Date End Date Jefferson Sosa MD [address] [place] [address] PCP - General Internal Medicine 05/17/13 [facility] 09/19/24 documented as of this encounter
--- OUTSIDE RECORDS SUMMARY | 2025-03-05 18:04 | XMS_ITS | Encounter Summary ---
Author Organization [employer] Address [address] [facility] [address] [place] [address] Care Team Providers Care Sfdc Architect Name Role Phone Jefferson Sosa MD Primary Care Provider Reason for Visit * Reason Comments Med Change Request Encounter Details Date Type Department Care Team ([facility] st Contact Info) Description 01/23/2025 Refill [facility] [address] [place], [place] [phone] Jefferson Sosa MD [address] [place] [address] Depressive disorder Social History Tobacco Use Types [...] Description 03/15/2025 8:00 AM EST Office Visit [facility] ADULT DENTAL [address] [place] [address] Nate White DDS [address] [place] [address] 03/29/2025 2:30 PM EST Office Visit [facility] MED & PEDS [address] [place] [address] Jefferson Sosa MD [address] [place] [address] documented as of this encounter Visit Diagnoses Diagnosis Depressive disorder Depressive disorder, not elsewhere classified documented in this encounter Additional Health Concerns Assessment Noted Time PHQ-9 Depression Total Score: 0 10/01/19 24 3:56 PM EDT documented as of this encounter Care Teams Sfdc Architect Relationship Specialty Start Date End Date Jefferson Sosa MD [address] [place] [address] PCP - General Internal Medicine 05/17/13 [facility] 09/19/24 documented as of this encounter
--- OUTSIDE RECORDS SUMMARY | 2025-03-05 18:04 | XMS_ITS | Clinical Summary ---
Author Organization [employer] Address 75 [facility] 7t [place] [address] Care Team Providers Care Cutter Tender Name Role Phone Jefferson Sosa MD [...] Encounters Date Type Department Care Team Description 03/05/2025 Orders Only [facility] External Provider, [facility] 03/02/2025 Telephone [facility] MEDICINE [address] [place] [address] Jefferson Sosa MD Nurse Triage 02/26/2025 Refill [facility] MED & PEDS [address] [place] [address] Jefferson Sosa MD 02/26/2025 Refill [facility] MED [facility]EDS [address] [place] [address] Jefferson Sosa MD 02/17/2025 Refill [facility]S [address] [place] [address] Jefferson Sosa MD Primary insomnia 02/09/2025 1:30 PM EDT Office Visit [facility] ADULT DENTAL [address] [place] [address] Nate White DDS Periodontal disease (Primary Dx); Dental caries 01/23/2025 3:30 PM EDT Office Visit [facility] MED & PEDS [address] [place] [address] Jefferson Sosa MD Primary insomnia (Primary Dx) 01/23/2025 Travel 01/23/2025 Refill [facility] MED [facility] PEDS [address] [place] [address] Jefferson Sosa MD Depressive disorder 01/12/2025 Refill [facility] MED & PEDS [address] [place] [address] Jefferson Sosa MD 01/11/2025 Telephone [facility] MEDICINE [address] [place] [address] Jefferson Sosa MD Medication Question 01/05/2025 8:00 AM EDT Office Visit [facility] ADULT DENTAL [address] [place] [address] Nate White DDS Severe dental caries (Primary Dx); Non-restorable tooth; Teeth ankylosis 12/22/2024 Refill [facility] MED & PEDS [address] [place] [address] Inocencio Aguilar MD Depressive disorder 12/13/2024 Refill [facility] MED & PEDS [address] [place] [address] Jefferson Sosa MD Vitamin B12 deficiency; Vitamin D deficiency 12/07/2024 Telephone [facility] MED & PED[facility] [address] [place] [address] Jefferson Sosa MD Durable Medical Equipment 12/04/2024 3:15 PM EDT Office Visit [facility] MED & PEDS [address] [place] [address] Jefferson Sosa MD Benign essential hypertension (Primary [...] Description 03/15/2025 8:00 AM EST Office Visit [facility] ADULT DENTAL [address] [place] [address] Nate White DDS [address] [place] [address] 03/29/2025 2:30 PM EST Office Visit [facility] MED [facility] PEDS [address], [place] [phone] Jefferson Sosa MD [address] [place] [address] Health Maintenance Due Date Last Done Comments [...] 09/20/2014 Depression Screening 09/30/2024 10/01/2023, 10/01/19 24 COVID-19 Vaccine ( season) 2025 08/09/2020, 07/30/2020, [...] Procedure Name Priority Date/Time Associated Diagnosis Comments XR CHEST 1 VIEW Routine 03/05/2025 3:12 PM EDT VENOUS BLOOD GAS Routine 03/05/2025 2:31 PM EDT CASE PRESENTATION, DETAILED AND EXTENSIVE TREATMENT [...] Recently Relevant to Health Maintenance Results * XR Chest 1 View (03/05/2025 3:12 PM EDT) Anatomical Region Laterality Modality Chest Radiographic Molly ging 03/05/2025 3:12 PM EDT Narrative 03/05/2025 3:31 PM EDT [place] [address] XRay Report Signed Patient: Crystal Avila I MR# : [id number] : 1945 Acct:[id number] Age/Sex: 79 / F ADM Date: 03/05/25 Loc: HO.ED Attending Dr: Ordering Physician: Maribel Lee DO Date of Service: 03/05/25 Procedure(s): XR chest 1V Accession Number(s): [id number] cc: Jefferson Sosa MD; Maribel Lee DO Reason for Exam: weakness EXAMINATION: XR CHEST CLINICAL INFORMATION: weakness COMPARISON: July 12, 2024 TECHNIQUE: Frontal view of the chest was obtained. FINDINGS: Pulmonary reticular nodular pattern. Bilateral apical lung scarring. Linear and patchy opacities more confluent in the left lower hemithorax. No gross pneumothorax or pleural effusion. Cardiomediastinal silhouette size is normal. Calcified plaque thoracic aorta. Multilevel thoracic spondylosis. Osteopenia versus osteoporosis. Degenerative changes in the right acromioclavicular joint. XR/XR chest 1V IMPRESSION: Acute on chronic airspace disease. Prior CT chest demonstrated a cavitary lesion in the right lung no fully depicted on the x-ray. Electronically signed by: Timoteo Keys MD 03/05/2025 03:28 PM EDT RP Dictated By: Timoteo Bradshaw MD Signed By: <Electronically signed by Timoteo Dior MD in OV> 03/05/25 1528 DD/ 1512 TD/TT: 03/05/25 1525 Analysis Analyst: Procedure Note Donotuseinterpreter, Image - 03/05/2025 [place] [address] XRay Report Signed Patient: Crystal Avila IMR# : [id number] : 8Acct:[id number] Age/Sex: 79 / FADM Date: 03/05/25 Loc: .ED Attending Dr: Ordering Physician: Maribel Lee DO Date of Service: 03/05/25 Procedure(s): XR chest 1V Accession Number(s): [id number] cc: Jefferson Sosa MD; Maribel Lee DO Reason for Exam: weakness EXAMINATION: XR CHEST CLINICAL INFORMATION: weakness COMPARISON: July 12, 2024 TECHNIQUE: Frontal view of the chest was obtained. FINDINGS: Pulmonary reticular nodular pattern. Bilateral apical lung scarring. Linear and patchy opacities more confluent in the left lower hemithorax. No gross pneumothorax or pleural effusion. Cardiomediastinal silhouette size is normal. Calcified plaque thoracic aorta. Multilevel thoracic spondylosis. Osteopenia versus osteoporosis. Degenerative changes in the right acromioclavicular joint. XR/XR chest 1V IMPRESSION: Acute on chronic airspace disease. Prior CT chest demonstrated a cavitary lesion in the right lung no fully depicted on the x-ray. Electronically signed by: Timoteo Keys MD 03/05/2025 03:28 PM EDT RP Dictated By: Timoteo Bradshaw MD Signed By: <Electronically signed by Timoteo Dior MDin OV> 03/05/25 1528 DD/ 1512 TD/TT: 03/05/25 152 Analysis Analyst: [facility] External Provider IMG XR PROCEDURES Final Result * (ABNORMAL) VENOUS BLOOD GAS (03/05/2025 2:31 PM EDT) VBG pH 7.45(H) 7.32 - 7.43 [facility] Comment:METER #: [id number] additional_comment: Cb n-fina VBG PCO2 46 mmHg [facility] Comment:METER #: [id number] additional_comment: Cb n-fina VBG PO2 61 mmHg [facility] Comment:METER #: [id number] additional_comment: Cb n-fina VBG Base Excess 7.3 mmol/L [facility] Comment:METER #: [id number] additional_comment: Cb n-fina VBG HCO3 32(H) 22 - 26 mmol/L [facility] Comment:METER #: [id number] additional_comment: Cb n-fina O2 Sat, Kieran 88.0 % [facility] Comment:METER #: [id number] additional_comment: Cb n-fina 03/05/2025 2:31 PM EDT 03/05/2025 2:34 PM EDT Generic External Data Provider LAB BLOOD ORDERAB LES Final Result [facility] [address] [place] [phone] * (ABNORMAL) LIPID PANEL, STANDARD (08/07/2020 8:22 AM EDT) Chol/HDLC Ratio 3.1 <5.0 (calc) [facility] Cholesterol, Total 145 <200 mg/dL [facility] HDL Cholesterol 47(L) > OR = 50 mg/dL [facility] LDL Cholesterol 82 mg/dL (calc) [facility] Comment: Reference range: <100 Desirable range <100 mg/dL for primary prevention; <70 mg/dL for patients with CHD or diabetic patients with > or = 2 CHD risk factors. LDL-C is now calculated using the Fredis calculation, which is a validated novel method providing better accuracy than the Friedewald equation in the estimation of LDL-C. Sherif SS et al. MARKUS. 2013;310(19): 8583-2196 (http://education.3DLT.com.DeNovo Sciences/faq/QBP007) Non-HDL Cholesterol 98 <130 mg/dL (calc) [facility] Comment: For patients with diabetes plus 1 major ASCVD risk factor, treating to a non-HDL-C goal of <100 mg/dL (LDL-C of <70 mg/dL) is considered a therapeutic option. Triglycerides 84 <150 mg/dL [facility] 08/07/2020 8:22 AM EDT us Jefferson Sosa MD LAB BLOOD ORDERABLES Final Result [facility] [address] from Last 3 Months or Most Recently Relevant to Health Maintenance Insurance [address] [place] [address] [facility] STANDARD [facility] RESIDENTIAL OPTIONS (HMO D-SNP) [facility] Advance Directives Documents on File Type Date Recorded Patient Job Forwarder Expl anation Advance Directives and Livin g Will 10/05/2023 2:44 PM HCP Care Teams Cutter Tender Relationship Specialty Start Date End Date Jefferson Sosa MD [address] [place] [address] PCP - General Internal Medicine 05/17/[address] [facility] 09/19/24
--- OUTSIDE RECORDS SUMMARY | 2025-03-05 18:04 | XMS_ITS | Encounter Summary ---
Author Organization [employer] Address 75 [facility] [address] [place] [address] Care Team Providers Care Security Systems Engineer Name Role Phone Jefferson Sosa MD Primary Care Provider [phone] Reason for Visit * Reason Comments Med Refill Encounter Details Date Type Department Care Team ([facility] Contact Info) Description 12/30/2022 Refill [facility] MED & PEDS [address] [place], [place] [phone] Jefferson Sosa MD [address] [place], [place] [phone] Other iron deficiency anemia; Seasonal allergic rhinitis [...] Upcoming Encounters Date Type Department Care Team ([facility] Contact Info) Description 03/15/2025 8:00 AM EST Office Visit [facility] ADULT DENTAL [address] [place], [place] [phone] Nate White DDS [address] [place], [place] [phone] 03/29/2025 2:30 PM EST Office Visit [facility] MED & PEDS [address] [place], [place] [phone] Jefferson Sosa MD [address] [place] [address] documented as of this encounter Visit Diagnoses Diagnosis Other iron deficiency anemia Seasonal allergic rhinitis due to other allergic trigger documented in this encounter Care Teams Security Systems Engineer Relationship Specialty Start Date End Date Jefferson Sosa MD [address] [place] [address] PCP - General Internal Medicine 05/17/13 [facility] 09/19/24 documented as of this encounter
--- OUTSIDE RECORDS SUMMARY | 2025-03-05 18:04 | XMS_ITS | Encounter Summary ---
Author Organization [employer] Address [address] [facility] [address] 7[address] [place] [address] Care Team Providers Care Children Teacher Name Role Phone Jefferson Sosa MD Primary Care Provider Reason for Visit * Reason Onset Date Comments Order for VNA Services 01/28/2024 Encounter Details Date Type Department Care Team (Late st Contact Info) Description 01/28/2024 Telephone [facility] MEDICINE [address] [place] [address] Jefferson Sosa MD [address] [place], [place] [phone] Order for VNA Services Social History Tobacco [...] 8:12 AM EDT Tc from [place] with [facility] requesting a New order for VNA Services due to pt getting a biopsy done for some masses and is requiring services. documented in this encounter Plan of Treatment Upcoming Encounters Date Type Department Care Team (Late st Contact Info) Description 03/15/2025 8:00 AM EST Office Visit [facility] ADULT DENTAL [address] [place] [address] Nate White DDS [address] [place] [address] 03/29/2025 2:30 PM EST Office Visit [facility] CHC MED & PEDS [address] [place] [address] Jefferson Sosa MD [address] [place] [address] documented as of this encounter Visit Diagnoses Not on filedocumented in this encounter Additional Health Concerns Assessment Noted Time PHQ-9 Depression Total Score: 0 10/01/19 3:56 PM EDT documented as of this encounter Care Teams Children Teacher Relationship Specialty Start Date End Date Jefferson Sosa MD [address] [place] [address] PCP - General Internal Medicine 05/17/13 [facility] 09/19/24 documented as of this encounter
--- OUTSIDE RECORDS SUMMARY | 2025-03-05 18:04 | XMS_ITS | Encounter Summary ---
Author Organization [employer] Address [address] [facility] [address] 7[address] [place] [address] Care Team Providers Care Regulatory Affairs Strategy Specialist Name Role Phone Jefferson Sosa MD Primary Care Provider Reason for Visit * Reason Onset Date Comments ER Follow-up 11/26/2023 Encounter Details Date Type Department Care Team (Late st Contact Info) Description 11/26/2023 Telephone [facility] MEDICINE [address] [place] [address] Jefferson Sosa MD [address] [place], [place] [phone] ER Follow-up Social History Tobacco Use Types [...] not set up. Call to yanni arango, RETORT OR CONDENSER PRESS OPERATOR not with pt, gave daughter number. No answer LVM to return callto [facility]. * Telephone Encounter - Timothy Ovalles - 11/26/2023 11:19 AM EDT Patient calling to report ED visit on : Date: 11/24 Hospital: [facility] Seen for: Feet swelling and chest pain Patient advised will forward to team nurse for follow up documented in this encounter Plan of Treatment Upcoming Encounters Date Type Department Care Team (Late st Contact Info) Description 03/15/2025 8:00 AM EST Office Visit [facility] ADULT DENTAL [address] [place] [address] Nate White DDS [address] [place] [address] 03/29/2025 2:30 PM EST Office Visit [facility] ED MED & PEDS [address] [place] [address] Jefferson Sosa MD [address] [place] [address] documented as of this encounter Visit Diagnoses Not on filedocumented in this encounter Additional Health Concerns Assessment Noted Time PHQ-9 Depression Total Score: 0 10/01/19 24 3:56 PM EDT documented as of this encounter Care Teams Regulatory Affairs Strategy Specialist Relationship Specialty Start Date End Date Jefferson Sosa MD [address] [place] [address] PCP - General Internal Medicine 05/17/13 [facility] 09/19/24 documented as of this encounter
--- OUTSIDE RECORDS SUMMARY | 2025-03-05 18:04 | XMS_ITS | Encounter Summary ---
Author Organization [employer] Address 75 [facility] 7t [place] [address] Care Team Providers Care Terrazzo Worker Helper Name Role Phone Jefferson Sosa MD Primary Care Provider [phone] Reason for Visit * Reason Comments Med Refill Encounter Details Date Type Department Care Team ([facility] st Contact Info) Description 09/20/2024 Refill [facility] CHC MED & PEDS [address] [place], [place] [phone] Jefferson Sosa MD [address] [place] [address] Epigastric pain Social History Tobacco Use Types [...] 03/15/2025 8:00 AM EST Office Visit [facility] ADULT DENTAL [address] [place] [address] Nate White DDS [address] [place] [address] 03/29/2025 2:30 PM EST Office Visit [facility] CHC MED & PEDS [address] [place] [address] Jefferson Sosa MD [address] [place] [address] documented as of this encounter Visit Diagnoses Diagnosis Epigastric pain Abdominal pain, epigastric documented in this encounter Additional Health Concerns Assessment Noted Time PHQ-9 Depression Total Score: 0 10/01/19 24 3:56 PM EDT documented as of this encounter Care Teams Terrazzo Worker Helper Relationship Specialty Start Date End Date Jefferson Sosa MD [address] [place] [address] PCP - General Internal Medicine 05/17/13 [facility] 09/19/24 documented as of this encounter
--- OUTSIDE RECORDS SUMMARY | 2025-03-05 18:04 | XMS_ITS | Encounter Summary ---
Author Organization [employer] Address [address] [facility] [address] 7[address] [place] [address] Care Team Providers Care Coal Handler Name Role Phone Jefferson Sosa MD Primary Care Provider Encounter Details Date Type Department Care Team (Late st Contact Info) Description 02/14/2024 Orders Only [facility] WALK-IN CENTER [address] [place] [address] Jefferson Sosa MD [address] [place], [place] [phone] Social History Tobacco Use Types Packs/Day Years [...] Description 03/15/2025 8:00 AM EST Office Visit [facility] ADULT DENTAL [address] [place], [place] [phone] Nate White DDS [address] [place] [address] 03/29/2025 2:30 PM EST Office Visit [facility] CHC MED & PEDS [address] [place] [address] Jefferson Sosa MD [address] [place] [address] documented as of this encounter Visit Diagnoses Not on filedocumented in this encounter Additional Health Concerns Assessment Noted Time PHQ-9 Depression Total Score: 0 10/01/19 3:56 PM EDT documented as of this encounter Care Teams Coal Handler Relationship Specialty Start Date End Date Jefferson Sosa MD [address] [place] [address] PCP - General Internal Medicine 05/17/13 [facility] 09/19/24 documented as of this encounter
--- OUTSIDE RECORDS SUMMARY | 2025-03-05 18:04 | XMS_ITS | Encounter Summary ---
Author Organization [employer] Address [address] [facility] [address] [address] Care Team Providers Care Drop Forge Operator Name Role Phone Jefferson Sosa MD Primary Care Provider Reason for Visit * Reason Comments Med Refill Encounter Details Date Type Department Care Team ([facility] Contact Info) Description 01/01/2023 Refill [facility] MED & PEDS [address] [place], [place] [phone] Jefferson Sosa MD [address] [place], [place] [phone] Seasonal allergic rhinitis due to other allergic [...] Upcoming Encounters Date Type Department Care Team ([facility] Contact Info) Description 03/15/2025 8:00 AM EST Office Visit [facility] ADULT DENTAL [address] [place], [place] [phone] Nate White DDS [address] [place], [place] [phone] 03/29/2025 2:30 PM EST Office Visit [facility] MED & PEDS [address] [place], [place] [phone] Jefferson Sosa MD [address] [place] [address] documented as of this encounter Visit Diagnoses Diagnosis Seasonal allergic rhinitis due to other allergic trigger Other iron deficiency anemia documented in this encounter Care Teams Drop Forge Operator Relationship Specialty Start Date End Date Jefferson Sosa MD [address] [place] [address] PCP - General Internal Medicine 05/17/13 [facility] 09/19/24 documented as of this encounter
--- OUTSIDE RECORDS SUMMARY | 2025-03-05 18:04 | XMS_ITS | Encounter Summary ---
Author Organization [employer] Address [address] [facility] 7t [place] [address] Care Team Providers Care Microbiology Lab Technician Name Role Phone Jefferson Sosa MD Primary Care Provider Reason for Visit * Reason Comments Med Refill Encounter Details Date Type Department Care Team ([facility] st Contact Info) Description 02/26/2025 Refill [facility] CHC MED & PEDS [address] [place], [place] [phone] Jefferson Sosa MD [address] [place] [address] Social History Tobacco Use Types Packs/Day Years [...] Description 03/15/2025 8:00 AM EST Office Visit [facility] ADULT DENTAL [address] [place] [address] Nate White DDS [address] [place] [address] 03/29/2025 2:30 PM EST Office Visit [facility] CHC MED & PEDS [address] [place] [address] Jefferson Sosa MD [address] [place] [address] documented as of this encounter Visit Diagnoses Not on filedocumented in this encounter Additional Health Concerns Assessment Noted Time PHQ-9 Depression Total Score: 0 10/01/19 24 3:56 PM EDT documented as of this encounter Care Teams Microbiology Lab Technician Relationship Specialty Start Date End Date Jefferson Sosa MD [address] [place] [address] PCP - General Internal Medicine 05/17/13 [facility] 09/19/24 documented as of this encounter
--- OUTSIDE RECORDS SUMMARY | 2025-03-05 18:04 | XMS_ITS | Data Portability ---
Author Organization [employer] [facility] Address [address] [place] [address] Care Team Providers Care Android Framework Developer Name Role Phone HIM CCA OTHER Unavailable OTHER Assessment Encounter Date Assessment Date Assessment LastModified by Organization Details LastModified Time 09/15/2023 09/15/2023 As noted, we were called to see this patient regarding concerns of weakness. Evaluation in the field was performed by my pyrometer temperature regulator colleague, as noted above, I provided real-time [...] assessment and plan as daocumented by the pyrometer temperature regulator. I provided real-time medical direction for this encounter and was immediately available to provide additional phone-based assistance as needed. History as noted in EMR and by pyrometer temperature regulator. I would add / emphasize: Patient seen [...] None recorded. Lab urinalysis, dipstick 2024 025 [facility], [address] [place] [address], [phone] 21:42:29 culture, urine 2024 025 [place] [facility], [address] [place] [address], [place], [address], 05:30:36 urinalysis, dipstick 2024 025 [facility], [address] [place] [address], [phone] 21:42:07 Referral None recorded. Procedures None recorded. Surgeries None recorded. Imaging None recorded. Medication Orders sulfamethox azole 800 mg-trimetho prim 160 mg tablet 2024 025 [facility]/Pharmacy #[id number], [address] [place], [address], 5 20:03:16 Bactrim DS 800 mg-160 mg tablet 2024 025 [email or web address] [facility]/Pharmacy #[id number], [address] [place], [address], 5 20:15:33 Patient TargetsNo targets recorded. Patient InstructionsNo instructions recorded. Reason for Referral None Reported. Results Created Date Observation Date Name Description Value Unit Range Abnormal Flag Note LastModifiedBy Organization Detail LastModifiedTime 08/18/19 24 08/18/2023 hemog lobin + hemat ocrit , blood Hemoglobin 10.5 Not Available [address], [address] [place] [address] 08/18/2023 19:50:29 08/18/19 24 08/18/2023 hemog lobin + hemat ocrit , blood Hematocrit 31 Not Available [facility] - [address], [address] [place] [address] 08/18/2023 19:50:29 08/18/19 24 08/18/2023 BMP, serum or plasm a BUN 21 Not Available [facility] - [facility] [address], [address] [place] [address] 08/18/2023 19:50:26 08/18/19 24 08/18/2023 BMP, serum or plasm a Ca 1.2 Not Available [facility] - [facility] [address], [address] [place] [address] 08/18/2023 19:50:26 08/18/19 24 08/18/2023 BMP, serum or plasm a CI- 102 Not Available [facility] - [facility] [address], [address] [place] [address] 08/18/2023 19:50:26 08/18/19 24 08/18/2023 BMP, serum or plasm a CRE 1.2 Not Available Main - [facility] [address], [address] [place] [address] 08/18/2023 19:50:26 08/18/19 24 08/18/2023 BMP, serum or plasm a GLU 157 Not Available Main - [facility] [address], [address] [place] [address] 08/18/2023 19:50:26 08/18/19 24 08/18/2023 BMP, serum or plasm a K+ 3.6 Not Available [facility] - [facility] [address], [address] [place] [address] 08/18/2023 19:50:26 08/18/19 24 08/18/2023 BMP, serum or plasm a Na+ 141 Not Available Main - [facility] [address], [address] [place] [address] 08/18/2023 19:50:26 08/18/19 24 08/18/2023 BMP, serum or plasm a tCO2 29 Not Available Main - Ins umm [address] [facility], [place], [address] 08/18/2023 19:50:26 06/13/19 25 06/16/2024 CULTU RE, URINE , ROUTI NE culture, urine, routine SEE NOTE CULTU RE, URINE , ROUTI NE Micro Numbe r: [id number] Test Statu s: Final Speci men [...] Cultu re Trans port Tube. Not Available [facility] [address] John [place], [place], [address], 06/16/2024 05:30:36 Result Notes None recorded. Medical [...] Details Last Updated DateTime 5 98.3 [degF] 97555.2 4 g 18 /min 81 /min 95 % 95 % 157.48 cm 108/65 mm[Hg] Not Available [facility] [employer] 5 19:59:46 Date Recorded Body weight Oxygen saturation Oxygen saturation in Arterial blood by Pulse oximetry Heart rate Body height Respiratory rate Body temperature Systolic And Diastolic Provider Name and Address Organization Details Last Updated DateTime 4 52437.2 g 99 % 99 % 80 /min 157.48 cm 16 /min 98.5 [degF] 120/80 mm[Hg] Not Available [facility] - production 4 18:50:45 Date Recorded Body weight Respiratory rate Heart rate Body height Body temperature Oxygen saturation Oxygen saturation in Arterial blood by Pulse oximetry Systolic And Diastolic Provider Name and Address Organization Details Last Updated DateTime 4 08323.4 24 g 16 /min 68 /min 157.48 cm 97 [degF] 98 % 98 % 110/67 mm[Hg] Not Available [employer] - production 4 10:49:02 Date Recorded Respiratory rate Heart rate Oxygen saturation Oxygen saturation in Arterial blood by Pulse oximetry Body temperature Systolic And Diastolic Provider Name and Address Organization Details Last Updated DateTime 4 14 /min 80 /min 97 % 97 % 98.5 [degF] 125/74 mm[Hg] Not Available [employer] - production 4 18:56:22 Date Recorded Body temperature Oxygen saturation Oxygen saturation in Arterial blood by Pulse oximetry Respiratory rate Heart rate Systolic And Diastolic Provider Name and Address Organization Details Last Updated DateTime 4 97.2 [degF] 98 % 98 % 16 /min 78 /min 110/70 mm[Hg] Not Available [employer] - production 13:58:52 Social History None recorded. Functional Status None recorded. Mental Status None recorded. Family History Nothing Reported. Medical History No medical history recorded. Gynecological HistoryNo gynecological history recorded. Obstetrics History GPAL:G 0 P 0 0 0 0 Past Encounters Encounter ID Performer Location Encounter Start Date Encounter Closed Date Diagnosis/Indication Diagnosis SNOMED-CT Code Diagnosis ICD10 Code Diagnosis IMO Codes Diagnosis Note [id number] Austin Spivey MD [facility] - [address] [address] 02/23/2023 13:25:11 02/26/2023 10:45:12 Acute otitis media 7467425 H66.91 [id number] Slim Perez MD [address] [address] 04/15/2023 15:18:12 04/15/2023 22:39:59 Viral upper respiratory tract infection 778264215 J06.9 COVID/flu negative. Vitals stable with stable O2 sats. Supportive care. Discussed red flag signs for which to seek higher level of care. Cough 83843728 R05.9 Will rx Tessalsteve ramos. Discussed red flag signs for which to seek higher level of care. [id number] Doug Donald MD [facility] - [address] [address] 08/18/2023 18:02:56 08/19/2023 10:55:43 Edema of left lower limb 348660240 R60.0 Patient with new extremity asymmetric edema. Advised that they call PCP in the AM to arrange for LE duplex ultrasound with doppler. No significan t s/sx of CHF or PE. Follow-up tab used to send message to care team. [id number] Katalina Lowery MD [facility] - [facility] [address] [place] [phone] 09/15/2023 18:50:34 09/16/2023 22:48:03 Weakness present 406169824 M62.81 [id number] Didi Will MD Main - [facility] [address] [place] [address] 11/22/2023 10:48:43 11/22/2023 20:56:29 Swelling of bilateral lower limbs 897081067 M79.89 Evaluation in the field was performed by my pyrometer temperature regulator colleague, as noted above, I provided real-time direction and supervisio n for this visit. 78yo F per PCP chart PMHx liver carcinoma, weight loss, hypoprotei nemia who was seen by PCP 11/14 for LE edema and recommende d to increase PO protein and elevated legs (per note). PILLOWCASE CLEANER confirms very little PO intake (1/2 glass water per day). Request today placed for same symptoms, pt not adhering to rec to elevated legs or use Ensure high protein. No erythema, asymmetric swelling, or palpable cord. On pyrometer temperature regulator eval VS wnl, exam notable for symmetric pitting edema to knees. POC labs done by pyrometer temperature regulator w/ Cr 1.0 BUN 28 Hgb 10.8. [...] shortness of breath, cough, chest pain, fever. [id number] Slim Perez MD [facility] - [facility] [address] [place] [phone] 11/23/2023 18:56:20 11/23/2023 23:14:16 Swelling of bilateral lower limbs 792187576 M79.89 78yo F per PCP chart PMHx liver carcinoma, weight loss, hypoprotei nemia who was seen by PCP 11/14 and subsequent ly 11/21 for LE edema and recommende d to increase PO protein and elevated legs (per note). PILLOWCASE CLEANER confirms very little PO intake (1/2 glass water per day). Request today placed for same symptoms, pt not adhering to rec to elevated legs or use Ensure high protein. No erythema, asymmetric swelling, or palpable cord. On pyrometer temperature regulator eval VS wnl, exam notable for symmetric pitting edema to knees. POC labs from yesterday notable for normal Executive Chef Assistant. Given similar presentati on c/w LE edema 2/2 low protein and likely some portal HTN, recommende d high protein diet, leg elevation and/or wrapping and close PCP f/up. Defer diuretics given low fluid intake. [id number] Austin Spivey MD Main - [facility] [address] [place] [address] 11/25/2023 13:58:41 11/25/2023 16:04:33 Chest pain 38119360 R07.9 Intermitte nt claudication 81360465 I73.9 [id number] Jim Monge MD Main - [facility] [address] [place] [phone] 06/13/2024 19:59:42 06/13/2024 22:03:46 Urinary symptoms 135209199 R39.9 As noted, we were called to see this patient regarding concerns of urinary discomfort and malodorous urine. Evaluation in the field was performed by my pyrometer temperature regulator colleague, as noted above, I provided real-time [...] Velasquez Member ID Guarantor Name 06/13/2024 1 [facility] - DOS ON OR AFTER 2022 - DUAL ELIGIBLE - PENITENTIARY OPTIONS AND ONE CARE (MEDICARE REPLACEMENT/AD VANTAGE - HMO) Crystal Schuler [id number] Crystal Schuler Notes Date Note Type Note [...] to weakness earlier. BLE edema today. [facility] HPI: presenting for constellation of sxs including puffy eyes, decreased appetite, some mild edema, weakness, some midsternal chest pain that resolved w gaviscon. NSTEMI in May. GERD on prilosec and famotidine. no smoking. flu covid neg.................... ....................... ....................... ....................... ....................... ....................... ....... Sole Conforming Machine Operator Note From Florin Quiles: [facility] visit for elderly female patient with [...] negative. EKG completed and uploaded to [facility] for her review. Consulted with [facility] Dr. Lowery who advised no treatments needed at this time. Family encouraged to closely monitor pt and reviewed red flags for ED. Patient education provided. ....................... ....................... ....................... ....................... ....................... ....................... ... Disposition: Fulfilled Katalina Lowery MD [address] [place] [address],[address], [place], [address], [employer] 09/15/2023 22:00:27 11/22/2023 text/html CRC Nurse Triage [...] response time and will place referralClarissa POLO Sole Conforming Machine Operator POC Test Results from Saad Franklin Pending sale to [facility] (10:52:09) pH: 7.43 pH units pCO2: 47.4 mmHg pO2: 17.6 mmHg Na: 139 mmol/L K: 4.1 mmol/L iCa: 1.15 mmol/L Cl: 101 mmol/L TCO2: 31.5 mEq/L Hct: 32 % Hb: 10.8 g/dL Glu: 105 mg/dL Lac: 0.5 mmol/L Cr: 1.0 mg/dL BUN: 25 mg/dL A ....................... ....................... ....................... ....................... ....................... ....................... ... Sole Conforming Machine Operator Note From Saad Franklin: Pt reports BLE [...] ... Disposition: Fulfilled Didi Will MD [address] [facility],[address], [place], [address], [employer] 11/22/2023 11:19:38 11/23/2023 text/html ROS as noted [...] ....................... ....................... ....................... ....................... ....................... ....................... ... Sole Conforming Machine Operator Note From Saad Franklin: Pt seen by me yesterday for the same complaint. Daughter would like a wellness check today. Pt is still not wearing her compression stockings, elevating legs, drinking enough water and following the ensure directions. VSS. Afebrile. No change in edema. ....................... ....................... ....................... ....................... ....................... ....................... ... Disposition: Fulfilled Slim Perez MD [address] [place] [address],[address], [place], [address], [employer] 11/23/2023 19:23:23 11/25/2023 text/html CRC Nurse Triage [...] ....................... ....................... ....................... ....................... ....................... ....................... ... Sole Conforming Machine Operator Note From Joaquim Parra: Dispatched for the [...] which had subsided since arrival of the Sole Conforming Machine Operator. no history of congestive heart failure noted.vitals assessed on scene and visual assessment of both lower extremities noted pedal edema with minor discoloration to both feet worse swelling in the left side. pt. noted pain with palpation. lung sounds clear. -chest pain at this time -sob at this time -dizziness -abd pain -nvd -blurred vision -bowel issues -urinary issues. [facility] contacted and noted with the decreased circulation [...] +cms in all extremities -stroke scale findings. [facility] contacted and a pyrometer temperature regulator unit arrived on scene and took over patient care at this time . all times are approxreport completed by mary parra ....................... ....................... ....................... ....................... ....................... ....................... ... Disposition: Fulfilled Austin Spivey MD [address] [facility],[address], [place], [address], [facility] [employer] [facility] 11/25/2023 15:10:50 06/13/2024 text/html HPI: Call returned to Crystal Schuler to triage below. No dry cleaning counter clerk needed as this typewriter assembler speaks Surinamese. Reports having rib pain on right side x 3 days. Per pt was ill with ROMEL sx and congestion. Denies any cough. Denies any fever. Denies any redness or rash at site. Area is right above hip. Per pt was having foul odor and discomfort when passing urine. No N/V. Pt advised of disposition, [facility] Confirmed demographics and allergies. ....................... ....................... ....................... ....................... ....................... ....................... ... CRC Nurse Triage Notes (Blanca Garza - RN): Chief Complaints: Urinary symptoms PMH: Hypertension, Cancer, Anemia PMH Reviewed at 06/13/2024 - 16:27 Allergies Reviewed at 06/13/2024 - 16:27 Comments: HPI reviewed- NE Sole Conforming Machine Operator Organization Information for Harlan Chinchilla Business Legal Name: [employer] Address: [address] [place] [address] [place] [address], Community Service Aide: Juan Carlos Zhou MD [facility] No.: [id number] Sole Conforming Machine Operator POC Test Results from Harlan Chinchilla - BLS Urine Dipstick (19:45:00) Urine leukocytes: 15+ LALIT Urine nitrites: + NIT Urine urobilinogen: 0.2 URO Urine protein: 100++ PRO Urine pH: 5.0 pH Urine blood: - BLO Urine specific gravity: 1.030 SG Urine ketones: 15+ KET Urine bilirubin: 1+ ZAIRA Urine glucose: - GLU ....................... ....................... ....................... ....................... ....................... ....................... ... Sole Conforming Machine Operator Note From Harlan Chinchilla: SC1 dispatched to the above address for the pt reporting rib pain and a possible UTI. Upon arrival the pt was found sitting in her chair with her PILLOWCASE CLEANER at her side. The pt states she has pain under her right rib area and also stated she was in [place] about a week ago and came down with a cold and they gave her a liquid (guessing cough syrup) which helped with her cough. The pts daughter was not available to ask questions and PILLOWCASE CLEANER was able to answer most of them. [...] altered mental status. The pt and the PILLOWCASE CLEANER understood the instructions and SC1 cleared the call. WRR. ....................... ....................... ....................... ....................... ....................... ....................... ... [facility] Consulted: Roderick Monge ....................... ....................... ....................... ....................... ....................... ....................... ... Disposition: Fulfilled HPI: Call returned to Crystal Schuler to triage below. No dry cleaning counter clerk needed as this typewriter assembler speaks Surinamese. Reports having rib pain on right side [...] ....................... ....................... ....................... ....................... ....................... ....................... ... [facility] Nurse Triage Notes (Blanca Garza - RN): Chief Complaints: Urinary symptoms PMH: Hypertension, Cancer, Anemia PMH Reviewed at 06/13/2024: Allergies Reviewed at 06/13/2024: Comments: HPI reviewed- NE Sole Conforming Machine Operator Organization Information for Harlan Chinchilla Legal Name: [employer] Address: [address] [place] [address], Community Service Aide: Juan Carlos Zhou MD CLIA No.: [id number] Sole Conforming Machine Operator POC Test Results from Harlan Chinchilla Urine Dipstick (19:45:00) Urine leukocytes: 15+ LALIT Urine nitrites: + NIT Urine urobilinogen: 0.2 URO Urine protein: 100++ PRO Urine pH: 5.0 pH Urine blood: - BLO Urine specific gravity: 1.030 SG Urine ketones: 15+ KET Urine bilirubin: 1+ ZAIRA Urine glucose: - GLU Jim Monge MD [address] [place] [address],[address], [place], [address], [facility] [employer] 06/13/2024 21:22:16 OBGyn Episode No OBEpisode recorded.
--- OUTSIDE RECORDS SUMMARY | 2025-03-05 18:04 | XMS_ITS | Encounter Summary ---
Author Organization [employer] Address [address] [facility] [address] [place] [address] Care Team Providers Care Wool Hat Hydraulicker Name Role Phone Jefferson Sosa MD Primary Care Provider Encounter Details Date Type Department Care Team (Late st Contact Info) Description 07/23/2023 Orders Only [facility] PEDS [address] [place], [place] [phone] Jefferson Sosa MD [address] [place], [place] [phone] Memory disturbance (Primary Dx) Social History Tobacco [...] Description 03/15/2025 8:00 AM EST Office Visit [facility] ADULT DENTAL [address] [place], [place] [phone] Nate White, DDS [address] [place] [address] 03/29/2025 2:30 PM EST Office Visit [facility] [address], [place] [phone] Jefferson Sosa MD [address] [place], [place] [phone] documented as of this encounter Procedures Procedure Name Priority Date/Time Associated Diagnosis Comments [facility] US LOWER EXTREMITY VENOUS DUPLEX BILATERAL Routine 08/19/2023 3:18 PM EDT documented in this encounter Results * [facility] US Lower Extremity Venous Duplex Bilateral (08/19/2023 3:18 PM EDT) 08/19/2023 3:18 PM EDT Narrative [facility] - 08/25/2023 2:32 PM EDT [address] [address] Ultrasound Report Signed Patient: Crystal Avila I MR# : [id number] : 1945 Acct:[id number] Age/Sex: 78 / F ADM Date: 08/19/23 Loc: HO.US Attending Dr: Saad Michaels MD Ordering Physician: SAAD MICHAELS MD Date of Service: 08/19/23 Procedure(s): US venous duplex LE BI Accession Number(s): [id number] cc: SAAD MICHAELS MD; Jefferson Sosa MD [...] in OV> 08/25/23 1428 DD/ 1518 TD/TT: Reception Centre Manager: Procedure Note Donotuseinterpreter, Image - 08/25/[address] [address] Ultrasound Report Signed Patient: Crystal Avila IMR# : [id number] : [id number]:[id number] Age/Sex: 78 / FADM Date: 08/19/23 Loc: .US Attending Dr: Saad Michaels MD Ordering Physician: SAAD MICHAELS MD Date of Service: 08/19/23 Procedure(s): US venous duplex LE BI Accession Number(s): [id number] cc: SAAD MICHAELS MD; Jefferson Sosa MD [...] in OV> 08/25/23 1428 DD/ 1518 TD/TT: Reception Centre Manager: us Saad Michaels MD CV VASCULAR PROCEDURES Final Res ult [facility] [address] [place] [address] documented in this encounter Visit Diagnoses Diagnosis Memory disturbance- Primary Memory loss documented in this encounter Care Teams Wool Hat Hydraulicker Relationship Specialty Start Date End Date Jefferson Sosa MD [address] [place] [address] PCP - General Internal Medicine 05/17/13 [facility] 09/19/24 documented as of this encounter
--- OUTSIDE RECORDS SUMMARY | 2025-03-05 18:04 | XMS_ITS | Encounter Summary ---
Author Organization [employer] Address [address] [facility] [address] [facility] [facility] [address] [place] [address] Care Team Providers Care Relocation Manager Name Role Phone Jefferson Sosa MD Primary Care Provider [phone] Reason for Visit * Reason Onset Date Comments Durable Medical Equipment 02/10/2024 Encounter Details Date Type Department Care Team (Late st Contact Info) Description 02/10/2024 Telephone [facility] MEDICINE [address] [place] [address] Jefferson Sosa MD [address] [place], [place] [phone] Durable Medical Equipment Social History Tobacco Use [...] 02/15/2024 9:30 AM EDT Rx generated through [employer] and pending PCP signature. Informed Mason of rx in process. Mason agrees with plan. * Telephone Encounter - Sharon Pinto LPN - 02/11/2024 12:41 PM EDT Please review message below and advise . If agreed please review Dx for this request , Thank you Tc from Mason requesting arm rest for toilet that rest on the toilet bowl. Pt would like that faxedbailey [employer]. If any questions you can contact Mason at [phone]. CCA Fac: [phone] * Telephone Encounter - Vinayak Schuler - 02/10/2024 11:42 AM EDT Tc from Mason requesting arm rest for toilet that rest on the toilet bowl. Pt would like that faxedto [employer]. If any questions you can contact Mason at [phone]. [facility] Fac: [phone] documented in this encounter Plan of Treatment Upcoming Encounters Date Type Department Care Team (Late st Contact Info) Description 03/15/2025 8:00 AM EST Office Visit [facility] ADULT DENTAL [address] [place] [address] Nate White DDS [address] [place], [place] [phone] 03/29/2025 2:30 PM EST Office Visit [facility] MED & PEDS [address] [place] [address] Jefferson Sosa MD [address] [place] [address] documented as of this encounter Visit Diagnoses Not on filedocumented in this encounter Additional Health Concerns Assessment Noted Time PHQ-9 Depression Total Score: 0 10/01/19 24 3:56 PM EDT documented as of this encounter Care Teams Relocation Manager Relationship Specialty Start Date End Date Jefferson Sosa MD [address] [place] [address] PCP - General Internal Medicine 05/17/13 [facility] 09/19/24 documented as of this encounter
--- OUTSIDE RECORDS SUMMARY | 2025-03-05 18:04 | XMS_ITS | Encounter Summary ---
Author Organization [employer] Address [address] [facility] [address] [place] [address] Care Team Providers Care Mobile Qa Tester Name Role Phone Jefferson Sosa MD Primary Care Provider Encounter Details Date Type Department Care Team (Late Contact Info) Description 11/11/2022 Abstract [facility] MEDICINE [address] [place] [address] Jefferson Sosa MD [address] [place] [address] Social History Tobacco Use Types Packs/Day Years [...] Description 03/15/2025 8:00 AM EST Office Visit [facility] ADULT DENTAL [address] [place] [address] Nate White DDS [address] [place] [address] 03/29/2025 2:30 PM EST Office Visit [facility] CHC MED & PEDS [address] [place] [address] Jefferson Sosa MD [address] [place], [place] [phone] documented as of this encounter Visit Diagnoses Not on filedocumented in this encounter Care Teams Mobile Qa Tester Relationship Specialty Start Date End Date Jefferson Sosa MD [address] [place] [address] PCP - General Internal Medicine 05/17/13 [facility] 09/19/24 documented as of this encounter
--- OUTSIDE RECORDS SUMMARY | 2025-03-05 18:04 | XMS_ITS | Encounter Summary ---
Author Organization [employer] Address [address] [facility] [address] [place] [address] Care Team Providers Care Balance Bridge Inspector Name Role Phone Jefferson Sosa MD Primary Care Provider [phone] Reason for Visit * Reason Onset Date Comments Nurse Triage 03/02/2025 Encounter Details Date Type Department Care Team (Late st Contact Info) Description 03/02/2025 Telephone [facility] MEDICINE [address] [place] [address] Jefferson Sosa MD [address] [place], [place] [phone] Nurse Triage Social History Tobacco Use Types [...] the past 12 months, has t he [employer], gas, oil or water [employer] threatened to shut off services in your [...] encounter Miscellaneous Notes * Telephone Encounter - Luz Ayala RN - 03/05/2025 9:02 AM EDT called pt to triage, spoke to Kathie who is her caregiver. Kathie states pt seen ER at [facility] on Wednesday for diarrhea and no acute findings. pt had some stool samples done but has no reports back from those as yet. Kathie states pt still having loose diarrhea but less watery and less in amount and frequency. pt is eating a little and drinking fluids well. Kathie denies fever, abdominal pain, severe weakness, other illness symptoms. Kathie states they are waiting for the reports on the stool samplesand will continue to follow ER instructions at this time and defer any follow up appt at this time.advised home care: rest, fluids, soft diet, monitor and call back as needed. insurance verified. Protocol Used: Diarrhea (Adult) Protocol-Based Disposition: Home Care Positive Triage Question: * Mild-Moderate diarrhea (e.g., 1-6 times / day more than normal) * All higher-acuity triage questions were negative Care Advice Discussed: * Reassurance and Education - Diarrhea * Fluid Therapy During Mild to Moderate Diarrhea * Food and Nutrition During Mild to Moderate Diarrhea * Wash Your Hands * Reasons To Call Back - Signs of dehydration occur (such as no urine over 12 hours, very dry mouth, lightheaded, etc.) - Moderate diarrhea lasts more than 2 days - Diarrhea lasts over 7 days - You become worse * Telephone Encounter - Kassidy Del Valle [...] reported she will take the patient to [facility] ED. Kathie and patient verbalized understanding. Protocol [...] the diarrhea (suspected) Please contact pt/Kathie at [phone]. (Slovak Speaker) documented in this encounter Plan of Treatment Upcoming Encounters Date Type Department Care Team (Late st Contact Info) Description 03/15/2025 8:00 AM EST Office Visit [facility] ADULT DENTAL [address] [place] [address] Nate White DDS [address] [place] [address] 03/29/2025 2:30 PM EST Office Visit [facility] CHC MED & PEDS [address] [place] [address] Jefferson Sosa MD [address] [place] [address] documented as of this encounter Visit Diagnoses Not on filedocumented in this encounter Additional Health Concerns Assessment Noted Time PHQ-9 Depression Total Score: 0 10/01/19 24 3:56 PM EDT documented as of this encounter Care Teams Balance Bridge Inspector Relationship Specialty Start Date End Date Jefferson Sosa MD [address] [place] [address] PCP - General Internal Medicine 05/17/13 [facility] 09/19/24 documented as of this encounter
--- OUTSIDE RECORDS SUMMARY | 2025-03-05 18:04 | XMS_ITS | Encounter Summary ---
Author Organization [employer] Address [address] [facility] [facility] [address] [place] [address] Care Team Providers Care Supervisor Lathing Name Role Phone Jefferson Sosa MD Primary Care Provider Reason for Visit * Reason Onset Date Comments FYI 11/10/2023 Encounter Details Date Type Department Care Team (Late st Contact Info) Description 11/10/2023 Telephone [facility] MEDICINE [address] [place] [address] Jefferson Sosa MD [address] [place], [place] [phone] FYI Social History Tobacco Use Types Packs/Day [...] - 11/10/2023 3:22 PM EDT Tc from [facility] calling to report the patient [...] [facility] ADULT DENTAL [address] [place] [address] Nate White DDS [address] [place] [address] 03/29/2025 2:30 PM EST Office Visit [facility] CHC MED & PEDS [address] [place] [address] Jefferson Sosa MD [address] [place] [address] documented as of this encounter Visit Diagnoses Not on filedocumented in this encounter Additional Health Concerns Assessment Noted Time PHQ-9 Depression Total Score: 0 10/01/19 24 3:56 PM EDT documented as of this encounter Care Teams Supervisor Lathing Relationship Specialty Start Date End Date Jefferson Sosa MD [address] [place] [phone] PCP - General Internal Medicine 05/17/13 [facility] 09/19/24 documented as of this encounter
--- OUTSIDE RECORDS SUMMARY | 2025-03-05 18:04 | XMS_ITS | Encounter Summary ---
Author Organization [employer] Address [address] [facility] [address] [place] [address] Care Team Providers Care Nonprofit Director Name Role Phone Jefferson Sosa MD Primary Care Provider Encounter Details Date Type Department Care Team (Late st Contact Info) Description 03/05/2025 Orders Only [facility] External Provider, [employer] Social History Tobacco Use Types Packs/Day Years [...] 03/15/2025 8:00 AM EST Office Visit [facility] ADULT DENTAL [address] [place] [address] Nate White, DDS [address] [place], [place] [phone] 03/29/2025 2:30 PM EST Office Visit [facility] CHC MED & PEDS [address] [place], [place] [phone] Jefferson Sosa MD [address] [place], [place] [phone] documented as of this encounter Procedures Procedure Name Priority Date/Time Associated Diagnosis Comments XR CHEST 1 VIEW Routine 03/05/2025 3:12 PM EDT documented in this encounter Results * XR Chest 1 View (03/05/2025 3:12 PM EDT) Anatomical Region Laterality Modality Chest Radiographic Molly ging 03/05/2025 3:12 PM EDT Narrative 03/05/2025 3:31 PM EDT [address] [address] XRay Report Signed Patient: Crystal Avila I MR# : [id number] : 1945 Acct:[id number] Age/Sex: 79 / F ADM Date: 03/05/25 Loc: .ED Attending Dr: Ordering Physician: Maribel Lee DO Date of Service: 03/05/25 Procedure(s): XR chest 1V Accession Number(s): [id number] cc: Jefferson Sosa MD; Maribel Lee DO [...] 03/05/25 1528 DD/ 1512 TD/TT: 03/05/25 1525 Physical Chemistry Teacher: Procedure Note Donotuseinterpreter, Image - 03/05/2025 [place] [address] XRay Report Signed Patient: Crystal Avila IMR# : [id number] : [id number]:[id number] Age/Sex: 79 / FADM Date: 03/05/25 Loc: .ED Attending Dr: Ordering Physician: Maribel Lee DO Date of Service: 03/05/25 Procedure(s): XR chest 1V Accession Number(s): [id number] cc: Jefferson Sosa MD; Maribel Lee DO [...] 03/05/25 1528 DD/ 1512 TD/TT: 03/05/25 1525 Physical Chemistry Teacher: [facility] External Provider IMG XR PROCEDURES Final Result documented in this encounter Visit Diagnoses Not on filedocumented in this encounter Additional Health Concerns Assessment Noted Time PHQ-9 Depression Total Score: 0 10/01/19 24 3:56 PM EDT documented as of this encounter Care Teams Nonprofit Director Relationship Specialty Start Date End Date Jefferson Sosa MD [address] [place] [phone] PCP - General Internal Medicine 05/17/[address] [facility] 09/19/24 documented as of this encounter
[2025-03-05] MEDS: Potassium Chloride/H20 10 MEQ/100 ML PIGGYBACK 74.97 MEQ IV (19:31)
[2025-03-05 20:00] VITALS: BP 140/62; PULSE 58; RESP 14; TEMP 36.9; O2SAT 96
--- NOTE | 2025-03-05 20:30 | PC.NURSE ---
Pt became confused and pulled out IV and monitors, states this isn't my home . Attempted to hit RN with jacket, unable to verbally deescalate and redirect to bed at this time. MD made aware and brought to bedside; awaiting orders.
[2025-03-05] MEDS: OLANZapine 10 MG VIAL 5 MG IM (21:30)
[2025-03-05] MEDS: Potassium Chloride/H20 10 MEQ/100 ML PIGGYBACK 66.67 MEQ IV (21:36)
[2025-03-05] MEDS: Potassium Chloride/H20 10 MEQ/100 ML PIGGYBACK 75 MEQ IV (22:51)
[2025-03-06 00:25] VITALS: BP 137/53; PULSE 55; RESP 14; TEMP 36.5; O2SAT 96
--- NOTE | 2025-03-06 01:00 | PC.NURSE ---
PT able to urine using bedpan. Urine sample sent down. 1;1 sitter at bedside. plan of care ongoing
[2025-03-06 01:35] LABS: Appearance Urine Clear; Glucose Urine UA Negative (Negative); PH 6.5 (5.0-9.0); Specific Gravity - Urine <= 1.005 (1.005-1.025); UMIC TRIGGER UACC YES
[2025-03-06 01:40] LABS: UACC Culture Trigger YES
[2025-03-06 02:05] LABS: Alanine Aminotransferase < 6 U/L (0-31); Albumin Level 3.3 g/dL (3.5-5.0); Alkaline Phosphatase 82 U/L (39-117); Anion Gap 13 (12-20); Aspartate Amino Transferase 15 U/L (5-31); Blood Urea Nitrogen 12 mg/dL (9-16); Calcium 8.8 mg/dL (8.4-10.2); Carbon Dioxide 24 mmol/L (22-29); Chloride 108 mmol/L (96-108); Creatinine Clr Calc Pharmacy 42.9; Estimated Glomerular Filt Rate > 60; Potassium 4.4 mmol/L (3.3-5.1); Sodium 141 mmol/L (135-145); Total Protein 7.3 g/dL (6.5-8.0)
--- NOTE | 2025-03-06 04:27 | PC.NURSE ---
updated son on plan for pt/cm.
[2025-03-06 06:25] VITALS: BP 121/67; PULSE 68; RESP 20; TEMP 36.6; O2SAT 95
--- NOTE | 2025-03-06 11:18 | PC.NURSE ---
RN to RN report received via phone from Mitzy Singh RN. Moved from ED 11 to Overflow 5. Care ongoing by this RN. Per case management, plan for family to sisal picker the patient to bring her home around 12pm today. Resting comfortably in hospital bed, watching TV at this time. No acute distress noted.
[2025-03-06 12:01] VITALS: BP 109/58; PULSE 52; RESP 16; TEMP 36.4; O2SAT 99
--- NOTE | 2025-03-06 12:14 | MHC.CM.ED ---
Received case management consult overnight. Physical therapy eval completed. Short term rehab is recommended. Attempted to meet with patient in regards to discharge planning. Attempted to speak with patient's daughter/HCP, Cat, via telephone at [phone]. Left voicemail requesting return telephone call. Spoke with patient's granddaughter/caregiver, Kathie, via telephone at [phone]. Kathie does not feel STR would be a good fit for patient due to her memory issues. Requesting PT at home. Patient is already active with [facility] for alf. Asked [facility] to add physical therapy to patient's services. Kathie will be on-site around 12pm to transport patient home. Abigail POLO and Leann MORLEY aware. Continue to monitor for d/c needs.
[2025-03-06 13:30] VITALS: BP 109/58; PULSE 52; RESP 16; TEMP 36.4; O2SAT 99
== END 2025-03-06 13:30 | disposition home or self-care (01) ==
PROVIDERS: Emergency Medicine; Emergency Provider Student in an Organized Health Care Education/Training Program; PCP Internal Medicine
DX: R53.1 Weakness (principal); R19.7 Diarrhea, unspecified; F03.90 Unspecified dementia, unspecified severity, without behavioral disturbance, psychotic disturbance, mood disturbance, and anxiety; R42 Dizziness and giddiness; R51.9 Headache, unspecified; R41.82 Altered mental status, unspecified; Z03.818 Encounter for observation for suspected exposure to other biological agents ruled out; I45.10 Unspecified right bundle-branch block; K21.9 Gastro-esophageal reflux disease without esophagitis; I12.9 Hypertensive chronic kidney disease with stage 1 through stage 4 chronic kidney disease, or unspecified chronic kidney disease; N18.9 Chronic kidney disease, unspecified; Z91.81 History of falling
CPT/HCPCS: 36415; 70450; 71045; 71250; 72125; 80048; 80053; 80076; 81001; 82140; 82550; 82803; 82947; 83605; 83690; 83735; 84145; 84443; 84484; 85025; 85610; 86140; 87040; 87086; 87637; 93005; 96361; 96365; 96366; 96367; 96372; 97162; 99285; J0696; J2359; J3480; J7120

== ENCOUNTER → 2025-03-05 14:05 | Outpatient (BNV) | payer OTHER, SELFPAY | PROVIDERS: Emergency Provider Student in an Organized Health Care Education/Training Program; PCP Internal Medicine; Visit Provider Radiology Diagnostic Radiology | DX: R91.8 Other nonspecific abnormal finding of lung field (principal); M50.322 Other cervical disc degeneration at C5-C6 level; R53.1 Weakness; R41.82 Altered mental status, unspecified; W19.XXXA Unspecified fall, initial encounter | CPT/HCPCS: 70450; 71045; 71250; 72125 ==

== ENCOUNTER → 2025-03-05 14:05 | Outpatient (BNV) | payer OTHER, SELFPAY | PROVIDERS: Emergency Provider Student in an Organized Health Care Education/Training Program; PCP Internal Medicine; Visit Provider Internal Medicine | DX: I45.10 Unspecified right bundle-branch block (principal) | CPT/HCPCS: 93010 ==